=== PATIENT | female | born 1955 | race Caucasian/White ===

== ENCOUNTER 2020-07-15 09:40 | Outpatient (REF) | payer MEDICARE, SELFPAY ==
[2020-07-15 12:05] LABS: Alanine Aminotransferase 26 U/L (0-31); Alkaline Phosphatase 111 U/L (39-117); Anion Gap 10 (12-20); Aspartate Amino Transferase 34 U/L (5-31); Bilirubin Total 0.5 mg/dL (0.0-1.0); Blood Urea Nitrogen 12 mg/dL (9-16); Calcium 8.9 mg/dL (8.4-10.2); Carbon Dioxide 25 mmol/L (22-29); Chloride 107 mmol/L (96-108); Cholesterol 201 mg/dL; Estimated Glomerular Filt Rate > 60; Glucose Fasting 88 mg/dL (60-99); HDL Cholesterol 90 mg/dL; LDL Cholesterol Calculated 102 mg/dl; Potassium 4.2 mmol/L (3.3-5.1); Sodium 138 mmol/L (135-145); Total Protein 6.4 g/dL (6.5-8.0); Triglycerides 48 mg/dL
[2020-07-15 12:25] LABS: TSH reflex Free T4 2.26 uIU/mL (0.32-4.0)
== END 2020-07-15 09:41 | disposition home or self-care (01) ==
LOC: HO.HMGCLDS 09:40
PROVIDERS: PCP Nurse Practitioner Family; Visit Provider Nurse Practitioner Family
DX: E78.5 Hyperlipidemia, unspecified (principal); E03.9 Hypothyroidism, unspecified
CPT/HCPCS: 36415; 80053; 80061; 84443

== ENCOUNTER 2020-09-08 10:07 | Outpatient (REF) | payer MEDICARE, SELFPAY ==
[2020-09-08 11:36] LABS: Alanine Aminotransferase 22 U/L (0-31); Albumin Level 3.8 g/dL (3.5-5.0); Alkaline Phosphatase 113 U/L (39-117); Anion Gap 12 (12-20); Aspartate Amino Transferase 30 U/L (5-31); Bilirubin Total 0.6 mg/dL (0.0-1.0); Blood Urea Nitrogen 13 mg/dL (9-16); Calcium 8.7 mg/dL (8.4-10.2); Carbon Dioxide 23 mmol/L (22-29); Chloride 105 mmol/L (96-108); Cholesterol 194 mg/dL; Estimated Glomerular Filt Rate > 60; Glucose Fasting 89 mg/dL (60-99); HDL Cholesterol 94 mg/dL; LDL Cholesterol Calculated 92 mg/dl; Sodium 136 mmol/L (135-145); Total Protein 6.3 g/dL (6.5-8.0); Triglycerides 44 mg/dL
[2020-09-08 11:44] LABS: TSH reflex Free T4 1.23 uIU/mL (0.32-4.0)
== END 2020-09-08 10:08 | disposition home or self-care (01) ==
LOC: HO.LAB 10:07
PROVIDERS: PCP Nurse Practitioner Family; Visit Provider Nurse Practitioner Family
DX: E03.9 Hypothyroidism, unspecified (principal)
CPT/HCPCS: 36415; 80053; 80061; 84443

== ENCOUNTER 2020-09-14 08:41 | Outpatient (REF) | payer MEDICARE, SELFPAY ==
--- NOTE | ~2020-09-14 | MM_ITS ---
EXAMINATION: BONE DENSITOMETRY CLINICAL INDICATION: Encounter for screening for osteoporosis. COMPARISON: Baseline BD dated 11/18/2013. TECHNIQUE: Using a Wildcard DXA System (software version: 13.1) manufactured by [employer], dual-energy x-ray absorptiometry was performed of the lumbar spine and left hip. The images are of good technical quality. Summary results are attached. FINDINGS: AP SPINE L1-L4: Current: BMD 1.044 g/cm2, Z-score 0.8, T-score -1.1, osteopenia, 14.6% decrease from baseline (<5% change is not significant). Baseline: BMD 1.223 g/cm2. LEFT FEMUR, NECK: Current: BMD 0.683 g/cm2, Z-score -0.8, T-score -2.6, osteoporosis. Baseline: BMD 0.851 g/cm2. LEFT FEMUR, TOTAL: Current: BMD 0.712 g/cm2, Z-score -0.8, T-score -2.4, osteopenia, 26.1% decrease from baseline (<5% change is not significant). Baseline: BMD 0.964 g/cm2. IDENTIFIED RISK FACTORS: Recurrent falls, kidney disease, anticonvulsants, glucocorticoids (chronic), menopause, hysterectomy, bilateral oophorectomy. HISTORY OF FRACTURE: None listed. MEDICATIONS: Vitamin D. MM/XR DEXA axial skeleton IMPRESSION: 1. DIAGNOSIS: Osteoporosis based on the lowest T-score value of -2.6 in the femoral neck applying World Health Organization criteria. 2. 10-YEAR FRACTURE RISK PREDICTION, FRAX: Major osteoporotic fracture (clinical spine, forearm, hip or shoulder) 21.6%. Hip fracture 5.9%. 3. Treatment Recommendations: NOF guidelines recommend consideration for treatment in postmenopausal women and men age 50 and older presenting with the following: -A hip or vertebral (clinical or morphometric) fracture. -T-score less than or equal to -2.5 at the femoral neck or spine after appropriate evaluation to exclude secondary causes. -Low bone mass at the hip or spine and a 10-year fracture probability by FRAX of greater than or equal to 3% for hip fracture or greater than or equal to 20% for major osteoporotic fracture based on the [place] adapted WHO algorithm. 4. Other Recommendations: All treatment decisions require clinical judgment and consideration of individual patient factors, including patient preferences, comorbidities, previous drug use, risk factors not captured in the FRAX model (e.g. frailty, falls, vitamin D deficiency, increased bone turnover, interval significant decline in bone density) and possible under or overestimation of fracture risk by FRAX. Additional medical evaluation for secondary cause of low bone mineral density may be appropriate. FUTURE SCAN RECOMMENDATION: People with diagnosed cases of osteoporosis or at high risk for fracture should have regular bone mineral density tests. For patients eligible for Medicare, routine testing is allowed once every 2 years. The testing frequency can be increased to one year for patients who have rapidly progressing disease, those who are receiving or discontinuing medical therapy to restore bone mass, or have additional risk factors.
--- NOTE | ~2020-09-14 | US_ITS ---
EXAMINATION: US THYROID CLINICAL INFORMATION: Nontoxic single thyroid nodule COMPARISON: Ultrasound soft tissue 10/27/2015. TECHNIQUE: Linear transducer grayscale and color Doppler examination with attention to the region of the thyroid. FINDINGS: SIZE: Measurements of the thyroid lobes and nodules are given in sagittal, anteroposterior and transverse dimensions respectively. Right Thyroid Lobe: 3.8 x 1.7 x 1.3 cm, volume 4.4 mL. Parenchyma: The gland echotexture is heterogeneous. Thyroid vascularity is normal. Left Thyroid Lobe: Removed. Isthmus: 0.2 cm in maximum AP dimension. Estimated total number of nodules greater than or equal to 1 cm: 0. Sailmaker nodules are described as follows: 1. Location: Right upper. Size: 0.3 x 0.3 x 0.3 cm, volume 0.01 mL. Nodule characteristics: Composition: Solid (2). Echogenicity: Hypoechoic (2). Shape: Not taller than wide (0). Margins: Smooth (0). Echogenic Foci: None (0). ACR TI-RADS total points: 4 ACR TI-RADS category: 4 2. Location: Right midpole. Size: 0.6 x 0.4 x 0.6 cm, volume 0.08 mL. Nodule characteristics: Composition: Solid (2). Echogenicity: Hypoechoic (2). Shape: Not taller than wide (0). Margins: Smooth (0). Echogenic Foci: None (0). ACR TI-RADS total points: 4 ACR TI-RADS category: 4 3. Location: Right lower pole. Size: 0.8 x 0.6 x 0.7 cm, volume 0.18 mL. Nodule characteristics: Composition: Solid (2). Echogenicity: Hypoechoic (2). Shape: Not taller than wide (0). Margins: Smooth (0). Echogenic Foci: None (0). ACR TI-RADS total points: 4 ACR TI-RADS category: 4 NODES: No lymphadenopathy is seen in the tissue surrounding the thyroid gland. US/US thyroid IMPRESSION: No nodule or residual thyroid tissue seen in the left neck. 3 small right thyroid nodules. ACR TI-RADS RECOMMENDATION REFERENCE: Ultrasound-guided fine-needle aspiration, followup ultrasound, no further follow up. * TR1 (0 point) and TR 2 (2 points): No FNA or follow up * TR3 (3 points): FNA if more than or equal to 2.5 cm in maximum dimension, followup ultrasound in 1, 3 and 5 years if 1.5 to 2.4 cm in maximum dimension. * TR4 (4-6 points): FNA if more than or equal to 1.5 cm in maximum dimension, followup ultrasound in 1, 2, 3 and 5 years if 1 to 1.4 cm in maximum dimension. * TR5 (more than or equal to 7 points): FNA if more than or equal to 1 cm in maximum dimension, followup ultrasound every year for 5 years if 0.5 to 0.9 cm in maximum dimension. * TR3, TR4 or TR5 nodules that are below the size threshold for follow up receive no follow up.
== END 2020-09-14 08:42 | disposition home or self-care (01) ==
LOC: HO.MAMMO 08:41
PROVIDERS: Visit Provider Nurse Practitioner Family
DX: Z13.820 Encounter for screening for osteoporosis (principal); E04.1 Nontoxic single thyroid nodule; N28.9 Disorder of kidney and ureter, unspecified; Z78.0 Asymptomatic menopausal state; Z91.81 History of falling; Z79.899 Other long term (current) drug therapy; Z79.52 Long term (current) use of systemic steroids; Z90.722 Acquired absence of ovaries, bilateral; Z90.710 Acquired absence of both cervix and uterus
CPT/HCPCS: 76536; 77080

== ENCOUNTER 2020-09-20 11:14 | Outpatient (REF) | payer MEDICARE, SELFPAY ==
--- NOTE | ~2020-09-20 | MM_ITS ---
EXAMINATION: MM SCREENING DIGITAL BREAST TOMOSYNTHESIS, BILATERAL CLINICAL INFORMATION: Screening. Asymptomatic. The lifetime risk of breast cancer based on the Tyrer-Cuzick Model is 4%. COMPARISON: Mammography: 05/22/2017, 04/04/2016 TECHNIQUE: Digital breast tomosynthesis is performed in both the craniocaudal and mediolateral oblique views along with computer-aided detection (CAD). Synthesized 2D images are generated from the tomosynthesis. FINDINGS: There are scattered areas of fibroglandular density (ACR BI-RADS breast composition Category b). There are no significant masses, abnormal calcifications, or other abnormalities. Parenchymal pattern is similar to prior exams. There are benign-appearing bilateral scattered calcifications again present. The axilla and skin contours are unremarkable. MM/MM tomosynthesis screening BI IMPRESSION: No mammographic evidence of malignancy. ASSESSMENT: BI-RADS 2: Benign RECOMMENDATION: Routine annual mammography screening. This patient's information was entered into a reminder system with a target due date for their next mammogram.
== END 2020-09-20 11:15 | disposition home or self-care (01) ==
LOC: HO.MAMMO 11:14
PROVIDERS: PCP Nurse Practitioner Family; Visit Provider Nurse Practitioner Family
DX: Z12.31 Encounter for screening mammogram for malignant neoplasm of breast (principal)
CPT/HCPCS: 77063; 77067

== ENCOUNTER 2020-12-22 11:31 | Outpatient (REF) | payer OTHER, SELFPAY ==
[2020-12-22 14:22] LABS: Alanine Aminotransferase 20 U/L (0-31); Albumin Level 3.9 g/dL (3.5-5.0); Alkaline Phosphatase 80 U/L (39-117); Anion Gap 12 (12-20); Aspartate Amino Transferase 34 U/L (5-31); Bilirubin Total 0.5 mg/dL (0.0-1.0); Blood Urea Nitrogen 15 mg/dL (9-16); Calcium 8.9 mg/dL (8.4-10.2); Carbon Dioxide 22 mmol/L (22-29); Chloride 108 mmol/L (96-108); Estimated Glomerular Filt Rate > 60; Glucose Fasting 87 mg/dL (60-99); Potassium 4.4 mmol/L (3.3-5.1); Sodium 138 mmol/L (135-145); Total Protein 6.6 g/dL (6.5-8.0)
[2020-12-22 14:44] LABS: TSH reflex Free T4 1.13 uIU/mL (0.32-4.0)
== END 2020-12-22 11:32 | disposition home or self-care (01) ==
LOC: HO.HMGCLDS 11:31
PROVIDERS: PCP Nurse Practitioner Family; Visit Provider Nurse Practitioner Family
DX: E03.9 Hypothyroidism, unspecified (principal)
CPT/HCPCS: 36415; 80053; 84443

== ENCOUNTER 2021-02-07 09:50 | Outpatient (REF) | payer OTHER, SELFPAY ==
--- NOTE | 2021-02-09 08:28 | MHC.AU.ANO ---
Adult Audiological Evaluation Date of Visit: 02/07/21 Reason for Appointment: Patient's family has expressed significant concern for her hearing. She reports that she often says what? and needs repetition. She often mishears things, and her family will frequently say that's not what I said. 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 History: No Medical History: Medical History: Arthritis, Thyroid Cancer, Headaches/Migraines, Heart Murmur, Head Injury, Conversion Disorder (presents as seizures), Ataxic Gait (uses walker), Measles/Mumps as a child Patient was in a alf last year Otoscopy: Right Ear: Unremarkable Left Ear: Unremarkable Tympanometry: Tympanometry performed due to: To assess integrity of the middle ear system Right Ear: Hypercompliant Middle Ear System (Type Ad) Left Ear: Hypercompliant Middle Ear System (Type Ad) Hearing Evaluation: Transducer(s) Used: Insert Earphones Method: Conventional Audiometry Stimuli Used: Pure Tones Right Ear: Description of Hearing: Mild to severe sensorineural hearing loss Left Ear: Description of Hearing: Mild to severe sensorineural hearing loss Speech Recognition Threshold (SRT): Method Used: Recorded Lists Stimuli Used: Spondee Words Right Ear: 45 dBHL Left Ear: 45 dBHL Word Discrimination: Method: Recorded Lists Word Lists Used: W-22 Right Ear: 92% at 80 dBHL Left Ear: 88% at 80 dBHL Most Comfortable Level (MCL): Right Ear: 80 dBHL Left Ear: 80 dBHL Recommendations: Audiological re-evaluation in one year. Trial with amplification is recommended. Medical clearance from a physician is required before fitting. See Hearing Aid Evaluation report for more information. Diagnosis: Primary Diagnosis: H90.3 Bilateral Sensorineural Hearing Loss Signature: Provider: Wilfredo Ramsey, CCC-A
--- NOTE | 2021-02-09 08:29 | MHC.AU.HAS ---
Hearing Aid Evaluation Date of Visit: 02/07/21 Historical Information: Description of Hearing: Mild to severe sensorineural hearing loss bilaterally Summary: Patient was seen for audiological evaluation (see separate report for details). Hearing aid options were discussed. She is experiencing significant communication difficulty at home with family. Hearing Aid Prescription: Based on the individual?s shared listening needs, communication environments, dexterity, desire for connectivity, and personal preferences, the following prescription for amplification has been made: Right ear: Cook Frozen Dessert: gogamingo Model: Hexoskin ([employer]) P70-R Battery Size: Rechargeable Color: P5 Servomechanism Designer: 1M Action Taken/Action Needed: Prior authorization to be requested Medical Clearance to be requested from PCP/ENT Hearing Instrument Fitting to be scheduled when materials arrive Primary Diagnosis: H90.3 Bilateral Sensorineural Hearing Loss Signature: Provider: Wilfredo Ramsey, CCC-A
--- NOTE | 2021-02-09 08:39 | MHC.AU.MED ---
Medical Clearance for Hearing Instrumentation Date: 02/09/21 Patient Name: Sarahy Neves Date of : 1955 Primary Care Provider: Referring Provider: Case Duff [facility] We have seen your patient on 02/07/21 and have determined that they are a candidate for amplification (See accompanying report). Specifically, they would benefit from: Hearing aid use in both ears There is a statute that addresses Medical Evaluation Requirements prior to fitting a patient with a hearing aid. According to [place] statute 265 CMR:6.03(1), (a) General. Except as provided in 265 CMR 6.03(1)(b), a shearing machine tender shall not sell a hearing aid unless the prospective user has presented to the shearing machine tender a written statement signed by a licensed physician that states that the patient's hearing loss has been medically evaluated and the patient may be considered a candidate for a hearing aid. The medical evaluation must have taken place within the preceding six months. Please note: Due to the [place] Statute referenced above, we cannot accept a signature other than that of a licensed physician. TECHNICAL SUPPORT CONSULTANT and PA signatures cannot be accepted. I am in agreement with the above recommendation. There is no medical contraindication for hearing instrumentation. Physician Signature Date Physician Name (Printed)
--- NOTE | 2021-02-23 07:54 | MHC.AU.HAS ---
Hearing Aid Evaluation Date of Visit: 02/07/21 Historical Information: Description of Hearing: Mild to severe sensorineural hearing loss bilaterally Summary: Patient was seen for audiological evaluation (see separate report for details). Hearing aid options were discussed. She is experiencing significant communication difficulty at home with family. Hearing Aid Prescription: Based on the individual?s shared listening needs, communication environments, dexterity, desire for connectivity, and personal preferences, the following prescription for amplification has been made: Right ear: Medical Transcriptionist: Phonak Model: [employer] P70-R Battery Size: Rechargeable Color: P5 Bus Washer: 1M Left ear: Medical Transcriptionist: Phonak Model: Audeo P70-R Battery Size: Rechargeable Color: P5 Bus Washer: 1M Action Taken/Action Needed: Prior authorization to be requested Medical Clearance to be requested from PCP/ENT Hearing Instrument Fitting to be scheduled when materials arrive Primary Diagnosis: H90.3 Bilateral Sensorineural Hearing Loss Signature: Provider: Wilfredo Ramsey, IBIS-A
== END 2021-02-07 09:51 | disposition home or self-care (01) ==
LOC: HO.SH 09:50
PROVIDERS: Visit Provider Nurse Practitioner Family
DX: Z46.1 Encounter for fitting and adjustment of hearing aid (principal); H91.90 Unspecified hearing loss, unspecified ear
CPT/HCPCS: 92557; 92567; 92591

== ENCOUNTER 2021-02-17 10:11 | Outpatient (REF) | payer OTHER, SELFPAY ==
[2021-02-17 11:31] LABS: Appearance Urine CLEAR; Color Urine YELLOW; Glucose Urine UA NEG (NEG); Leukocyte Esterase Urine NEG (NEG); Nitrite Urine NEG (NEG); Urine Blood NEG (NEG); Urine Ketones NEG (NEG); Urine Protein NEG (NEG-TRACE)
== END 2021-02-17 10:12 | disposition home or self-care (01) ==
LOC: HO.HMGCLDS 10:11
PROVIDERS: PCP Nurse Practitioner Family; Visit Provider Nurse Practitioner Family
DX: R35.0 Frequency of micturition (principal)
CPT/HCPCS: 81003

== ENCOUNTER 2021-03-09 10:49 | Outpatient (REF) | payer OTHER, SELFPAY ==
--- NOTE | 2021-03-18 14:15 | MHC.AU.HFA ---
Hearing Instrument Fitting- Adult- Binaural Date of Visit: 03/09/21 Hearing Instruments Dispensed: Right Ear: Navy Senior Officer: Phonak Model: [employer]udeo P70-R Serial Number: [id number] Repair Warranty: 05/28/2024 Loss and Damage Warranty: 05/28/2024 Battery Size: Rechargeable Color: P5 Head Concierge: 1M Type of Wax Guard: CeruShield Left Ear: Navy Senior Officer: Phonak Model: Audeo P70-R Serial Number: [id number] Repair Warranty: 05/28/2024 Loss and Damage Warranty: 05/28/2024 Service Plan: Battery Size: Rechargeable Color: P5 Head Concierge: 1M Type of Wax Guard: CeruShield Summary of Fitting: Feedback respiratory manager run. Verifit performed and levels adjusted to better reach targets. Patient felt 100% target was too loud- lowered to 90% gain. Patient was pleased with the sound of the instruments. Hearing aid care and maintenance were discussed and practiced. Hearing aids were paired to the patient's phone. Recommendations: A hearing instrument follow-up was scheduled. Please call our clinic with any questions or concerns. Diagnosis Code(s): Primary Diagnosis: H90.3 Bilateral Sensorineural Hearing Loss Signature: Provider: Wilfredo Ramsey, IBIS-A
== END 2021-03-09 10:50 | disposition home or self-care (01) ==
LOC: HO.HAP 10:49
PROVIDERS: Visit Provider Nurse Practitioner Family
DX: Z46.1 Encounter for fitting and adjustment of hearing aid (principal); H90.3 Sensorineural hearing loss, bilateral
CPT/HCPCS: V5011; V5020; V5160; V5261

== ENCOUNTER 2021-03-23 11:09 | Outpatient (REF) | payer OTHER, SELFPAY ==
[2021-03-23 13:48] LABS: MANUAL DIFF FLAG NO
[2021-03-23 13:53] LABS: Basophils Absolute Auto 0.1 X10*3/uL (0.0-0.2); Basophils Percent Auto 0.9 % (0-2); Eosinophils Absolute Auto 0.2 X10*3/uL (0.0-0.4); Eosinophils Percent Auto 3.2 % (0-4); Hemoglobin 13.7 g/dl (12.0-16.0); Imm Gran Abs Auto 0.02 X10*3/uL (0.00-0.03); Imm Gran Pct Auto 0.4 % (0.0-0.4); Lymphocytes Absolute Auto 1.6 X10*3/uL (1.2-4.9); Lymphocytes Percent Auto 29.9 % (20-40); Mean Corpuscular HGB Conc 31.9 g/dl (31.0-35.0); Mean Corpuscular Hemoglobin 29.8 pg (27.0-33.0); Mean Corpuscular Volume 93.5 fL (80-98); Mean Platelet Volume 10.8 fL (9.4-12.3); Monocytes Absolute Auto 0.4 X10*3/uL (0.1-1.2); Monocytes Percent Auto 7.2 % (2-11); Neutrophils Absolute Auto 3.1 X10*3/uL (2.0-8.3); Neutrophils Percent Auto 58.4 % (45-73); Platelet Count 261 X10*3/uL (160-400); White Blood Count 5.3 X10*3/uL (4.8-10.8)
[2021-03-23 14:04] LABS: Alanine Aminotransferase 17 U/L (0-31); Albumin Level 4.2 g/dL (3.5-5.0); Alkaline Phosphatase 81 U/L (39-117); Anion Gap 11 (12-20); Aspartate Amino Transferase 30 U/L (5-31); Bilirubin Total 0.4 mg/dL (0.0-1.0); Blood Urea Nitrogen 14 mg/dL (9-16); Calcium 9.4 mg/dL (8.4-10.2); Carbon Dioxide 24 mmol/L (22-29); Chloride 107 mmol/L (96-108); Cholesterol 229 mg/dL; Estimated Glomerular Filt Rate > 60; Glucose Random 93 mg/dL (60-115); HDL Cholesterol 101 mg/dL; LDL Cholesterol Calculated 118 mg/dl; Potassium 3.8 mmol/L (3.3-5.1); Sodium 138 mmol/L (135-145); Total Protein 6.9 g/dL (6.5-8.0); Triglycerides 50 mg/dL
[2021-03-23 14:56] LABS: Folate 7.5 ng/mL (> or = 4.0); Vitamin B12 515 pg/mL (200-900)
== END 2021-03-23 11:10 | disposition home or self-care (01) ==
LOC: HO.HMGCLDS 11:09
PROVIDERS: PCP Nurse Practitioner Family; Visit Provider Nurse Practitioner Family
DX: E53.8 Deficiency of other specified B group vitamins (principal); E78.5 Hyperlipidemia, unspecified
CPT/HCPCS: 36415; 80053; 80061; 82607; 82746; 85025

== ENCOUNTER 2021-03-24 10:15 | Outpatient (REF) | payer OTHER, SELFPAY ==
--- NOTE | 2021-03-24 14:34 | MHC.AU.HFU ---
Hearing Instrument Follow-Up- Binaural Date of Visit: 03/24/21 Right Ear: Entry Level Recruiter: Phonak Model: Audeo P70-R Serial Number: [id number] Repair Warranty: 05/28/2024 Loss and Damage Warranty: 05/28/2024 Battery Size: Rechargeable Color: P5 Splunk Consultant: 1M Type of Wax Guard: CeruShield Left Ear: Entry Level Recruiter: Phonak Model: Audeo P70-R Serial Number: [id number] Repair Warranty: 05/28/2024 Loss and Damage Warranty: 05/28/2024 Battery Size: Rechargeable Color: P5 Splunk Consultant: 1M Type of Wax Guard: CeruShield Follow-Up Summary: Patient reports that the receivers have not been staying in her ears. She has to frequently push them in to hear better. They have also been causing itchiness. Patient has a narrow, sharp bend to her canals. Impressions were taken bilaterally for custom slim tip or cShells (depending on what Phonak says they can do given the shape of the canals). Recommendations: Recommendations: Patient will be contacted when materials have arrived. Diagnosis Code(s): Primary Diagnosis: H90.3 Bilateral Sensorineural Hearing Loss Signature: Provider: Wilfredo Ramsey, IBIS-A
== END 2021-03-24 10:16 | disposition home or self-care (01) ==
LOC: HO.HAP 10:15
PROVIDERS: Visit Provider Nurse Practitioner Family
DX: Z46.1 Encounter for fitting and adjustment of hearing aid (principal); H90.3 Sensorineural hearing loss, bilateral
CPT/HCPCS: V5275

== ENCOUNTER 2021-04-14 11:09 | Emergency (ER) | payer OTHER, SELFPAY ==
--- NOTE | ~2021-04-14 | CT_ITS ---
EXAMINATION: CT HEAD WITHOUT CONTRAST CLINICAL INFORMATION: Aphasia. COMPARISON: CT head dated from 04/29/2019. TECHNIQUE: Contiguous axial imaging was performed from the skull base to vertex without intravenous administration of contrast. This CT examination was performed using dose optimization techniques as appropriate, variously including the following: *Automated exposure control *Adjustment of mA and/or kV according to patient size (this includes techniques or standardized protocols for targeted exams where dose is matched to indication/reason for exam; i.e. extremities or head) *Use of iterative reconstruction technique DLP: 512 mGy-cm FINDINGS: There is no evidence of acute intracranial hemorrhage or edematous territorial infarction. There is no abnormal attenuation within the brain parenchyma. Noel-white matter differentiation is preserved. The ventricles are normal in size and configuration. No evidence for obstructive hydrocephalus. No abnormal mass effect or midline shift. No extra-axial fluid collections. No acute soft tissue or osseous abnormalities. The mastoid air cells and paranasal sinuses are clear. CT/CT head for stroke IMPRESSION: No evidence of acute intracranial hemorrhage or edematous territorial infarction. This critical result was discussed with Dr. Wells at 04/14/2021 11:26 AM and it was ascertained that the content and urgency of the report was understood at the time of direct communication.
--- NOTE | 2021-04-14 11:13 | ECG_ITS ---
Test Reason : AMS Blood Pressure : / mmHG Vent. Rate : 063 BPM Atrial Rate : 063 BPM P-R Int : 166 ms QRS Dur : 086 ms QT Int : 402 ms P-R-T Axes : 068 057 057 degrees QTc Int : 411 ms Normal sinus rhythm Normal ECG No significant changes seen Referred By: Rosendo Kraus Electronically Signed By:YUSEF VEE MD
[2021-04-14 11:18] VITALS: BP 152/71; PULSE 65; RESP 18; TEMP 36.7; O2SAT 98; BMI 24.0
--- NOTE | 2021-04-14 11:22 | PC.NURSE ---
pt was blinking in the coffee shop- said she was going to lose her balance and was assisted to the floor by staff.
[2021-04-14 12:00] LABS: MANUAL DIFF FLAG NO
[2021-04-14 12:01] LABS: Basophils Absolute Auto 0.1 X10*3/uL (0.0-0.2); Basophils Percent Auto 1.3 % (0-2); Eosinophils Absolute Auto 0.2 X10*3/uL (0.0-0.4); Eosinophils Percent Auto 3.7 % (0-4); Hematocrit 40.8 % (37.0-47.0); Hemoglobin 13.2 g/dl (12.0-16.0); Imm Gran Abs Auto 0.01 X10*3/uL (0.00-0.03); Imm Gran Pct Auto 0.2 % (0.0-0.4); Lymphocytes Absolute Auto 1.5 X10*3/uL (1.2-4.9); Lymphocytes Percent Auto 33.1 % (20-40); Mean Corpuscular HGB Conc 32.4 g/dl (31.0-35.0); Mean Corpuscular Hemoglobin 30.3 pg (27.0-33.0); Mean Corpuscular Volume 93.8 fL (80.0-98.0); Mean Platelet Volume 9.5 fL (9.4-12.3); Monocytes Absolute Auto 0.4 X10*3/uL (0.1-1.2); Monocytes Percent Auto 8.9 % (2-11); Neutrophils Absolute Auto 2.44 x10*3/uL (2.0-8.3); Neutrophils Percent Auto 52.8 % (45-73); Platelet Count 280 X10*3/uL (160-400); Red Blood Count 4.35 X10*6/uL (4.20-5.50); White Blood Count 4.6 X10*3/uL (4.8-10.8)
[2021-04-14 12:08] LABS: Prothrombin Time 11.2 SEC (9.9-13.0)
[2021-04-14 12:11] LABS: Partial Thromboplastin Time 34.5 SEC (24.1-38.0)
[2021-04-14 12:17] LABS: Ethanol < 10 mg/dL
[2021-04-14 12:23] LABS: Troponin-I High Sensitivity < 3.5 ng/L (<3.5-17.0)
[2021-04-14 12:24] LABS: Stroke Lab Use COMPLETE
[2021-04-14 12:25] LABS: Alanine Aminotransferase 14 U/L (0-31); Albumin Level 3.7 g/dL (3.5-5.0); Alkaline Phosphatase 73 U/L (39-117); Anion Gap 10 (12-20); Aspartate Amino Transferase 26 U/L (5-31); Bilirubin Direct < 0.2 mg/dL (0.0-0.5); Bilirubin Total 0.2 mg/dL (0.0-1.0); Blood Urea Nitrogen 16 mg/dL (9-16); Calcium 9.1 mg/dL (8.4-10.2); Carbon Dioxide 26 mmol/L (22-29); Chloride 110 mmol/L (96-108); Creatinine Clr Calc Pharmacy 46.4; Estimated Glomerular Filt Rate > 60; Glucose Random 99 mg/dL (60-115); Potassium 4.3 mmol/L (3.3-5.1); Sodium 142 mmol/L (135-145); Total Protein 6.2 g/dL (6.5-8.0)
[2021-04-14 12:36] LABS: Glucose, Whole Blood 93 mg/dL (60-115)
[2021-04-14 12:40] LABS: Prothrombin Time Whole Bld POC 11.8 sec (11.1-13.5)
--- NOTE | 2021-04-14 13:08 | ED.AMS ---
HPI - Altered Mental Status General Chief Complaint: Altered Mental Status Stated Complaint: Stroke Alert Time Seen by Provider: 04/14/21 11:12 Source: patient and other (Rapid response staff members) Mode of arrival: wheelchair Limitations: no limitations History of Present Illness HPI narrative: 66-year-old female who came to the hospital today for a audiology appointment to adjust her hearing aids when she became altered. The patient remembers being in the coffee shop looking at something but then does not remember what happened after that. According to the rapid response staff members, the patient was staring into space and was not answering questions. She then told the [employer] staff members that she was going to fall over and she was lowered to the floor. She was then brought over to the emergency department on a stretcher. I evaluated her as soon as she arrived and she appeared to be confused, she was not able to tell me the month, the year, her date of or her age. She did not appear to be in any distress. Except for her confusion her neurologic exam was nonfocal. She was brought directly to the CT for CT scan of the head to rule out stroke/bleed. Patient's point of care glucose was 93. Related Data Home Medications Medication Instructions Recorded Confirmed aspirin 81 mg tablet,delayed 81 mg PO DAILY 07/05/20 03/23/21 release (Adult Low Dose Aspirin) magnesium oxide 400 mg (241.3 mg 400 mg PO BEDTIME 12/22/20 03/23/21 magnesium) tablet riboflavin (vitamin B2) 100 mg 100 mg PO DAILY 12/22/20 03/23/21 tablet Previous Rx's Medication Instructions Recorded fluticasone 250 mcg-salmeterol 50 1 ea PO BID #60 ea 10/20/20 mcg/dose blistr powdr for inhalation (Wixela Inhub) alendronate 70 mg tablet 70 mg PO QWEEK 30 Days #5 tab 12/26/20 atorvastatin 40 mg tablet 40 mg PO DAILY 90 Days #90 tab 12/26/20 clonazepam 0.5 mg tablet 0.5 mg PO BID PRN 90 Days #180 tab 12/26/20 fludrocortisone 0.1 mg tablet 0.1 mg PO DAILY 30 Days #30 tab 12/26/20 montelukast 10 mg tablet 10 mg PO DAILY 90 Days #90 tab 12/26/20 polyethylene glycol 3350 17 17 g PO DAILY PRN 90 Days #510 g 12/26/20 gram/dose oral powder (Miralax) sumatriptan succinate 100 mg tablet See Rx Instructions PO .COMPLEX 30 12/26/20 Days #10 tab albuterol sulfate 2.5 mg (3 mL) INHALATION QID PRN 12/27/20 90 Days #180 ml cholecalciferol (vitamin D3) 50 50 mcg PO DAILY 90 Days #90 cap 12/27/20 mcg (2,000 unit) capsule fluoxetine 10 mg tablet 10 mg PO DAILY #90 tab 03/23/21 fluticasone propionate 50 1 spray INTRANASAL DAILY 90 Days 03/23/21 mcg/actuation nasal #15.8 ml spray,suspension levothyroxine 25 mcg tablet 25 mcg PO DAILY #90 tab 03/23/21 meclizine 25 mg tablet 25 mg PO DAILY PRN 90 Days #90 tab 03/23/21 topiramate 100 mg tablet 50 mg PO BID 30 Days #30 tab 03/23/21 albuterol sulfate 90 mcg/actuation 2 puff INHALATION Q6H PRN #6.7 g 04/13/21 aerosol inhaler (ProAir HFA) Allergies Allergy/AdvReac Type Severity Reaction Status Date / Time Penicillins [PENICILLINS] Allergy Intermediate HIVES Verified 03/23/21 12:30 carbamazepine [From Tegretol] Allergy Mild HIVES Verified 03/23/21 12:30 diflunisal [From Dolobid] Allergy Mild HIVES Verified 03/23/21 12:30 erythromycin base Allergy Mild HIVES Verified 03/23/21 12:30 [From Edwin-Tab] phenytoin [From Dilantin] Allergy Mild RASH,HIVES Verified 03/23/21 12:30 piroxicam [From Feldene] Allergy Mild HIVES Verified 03/23/21 12:30 sulfamethoxazole Allergy Mild HIVES Verified 03/23/21 12:30 [From Bactrim] trimethoprim [From Bactrim] Allergy Mild HIVES Verified 03/23/21 12:30 valproic acid [From Depakene] Allergy Mild HIVES Verified 03/23/21 12:30 Depakene Allergy Unknown Rash Verified 03/23/21 12:30 hydrochlorothiazide Allergy Unknown rash Verified 03/23/21 12:30 [HYDROCHLOROTHIAZIDE] lisinopril [LISINOPRIL] Allergy Unknown rash Verified 03/23/21 12:30 penicillin V Allergy Unknown Rash Verified 03/23/21 12:30 Sulfa (Sulfonamide Allergy Unknown Rash Verified 03/23/21 12:30 Antibiotics) codeine [Codeine] AdvReac Intermediate NAUSEA & Verified 03/23/21 12:30 VOMITING rash ENVIRONMENTAL Allergy Intermediate ASTHMA,LOSES Uncoded 03/23/21 12:30 VOICE TAPE,PLASTIC Allergy Intermediate RASH Uncoded 03/23/21 12:30 surgical tape Allergy Unknown unknown Uncoded 03/23/21 12:30 Review of Systems Review of Systems: Yes all other systems are reviewed and are negative FOR[facility]LY [facility] Past Medical History Medical History Asthma Ataxic gait CKD (chronic kidney disease) Conversion disorder Conversion disorder with attacks or seizures, acute episode, with psychological stressor Depression HTN (hypertension) Hyperlipemia Hypothyroid Hypothyroid Muscle weakness Osteoporosis Seizures Surgical History History of ankle surgery History of arthroscopy of left knee History of arthroscopy of right knee History of hysterectomy History of lobectomy of thyroid History of right knee surgery Family History Family History Father CVD (cardiovascular disease) Stomach ulcer Cardiac arrest H/O heart bypass surgery Mother History of heart attack CHF (congestive heart failure) Lung cancer Diabetes mellitus High cholesterol HTN (hypertension) Hypothyroidism Sister Lung cancer Brother Colitis Sister No problems noted. Social History Social History Alcohol intake: never Physical Exam Vital Signs: Vital Signs: Last Vital Signs Temp 98.1 F 04/14/21 11:18 Pulse 65 04/14/21 11:18 Resp 18 04/14/21 11:18 BP 152/71 H 04/14/21 11:18 Pulse Ox 98 04/14/21 11:18 Body Mass Index 24.0 Const: Other: Awake, alert, appears to be confused, was unable to give us her date of , not oriented to date or age, speech is comprehensible Orientation/consciousness: No oriented to person, No oriented to place and No oriented to time HENMT: Head: Yes normal to inspection, Yes normocephalic and Yes atraumatic Ears: external ears normal General nose exam: Normal external nose present Face and sinus: Yes normal facial exam Mouth: Normal oral and palatal mucosa present Throat: Yes posterior oropharynx normal Eyes: General: appearance normal, both eyes and all related structures Pupils: Equal, round and reactive pupils present Neck: Neck: Yes normal visual inspection, Yes no lymphadenopathy, Yes trachea midline and Yes supple Chest: Chest palpation & inspection: normal inspection of the chest and normal palpation of entire chest wall Resp: Effort & Inspection: normal respiratory effort and able to speak in complete sentences Auscultation: clear to auscultation bilaterally Cardio: Rate: regular rate Rhythm: regular rhythm Heart sounds: S1 normal heart sound present, S2 normal heart sound present and no murmurs GI: Inspection: Yes normal to inspection Palpation (GI): Soft to palpation, nontender and no guarding Auscultation: normal bowel sounds : General: Yes no CVA tenderness Back/Spine/Pelvis: Back: no CVA tenderness Skin: General skin exam: no rashes or lesions noted Neuro: General: No oriented to person, No oriented to place and No oriented to time Cranial nerves: Yes CN's II-XII intact bilaterally and Yes Equal, round and reactive pupils present Cognition (Neuro): normal cognition Motor exam (neuro): 5/5 motor strength present throughout Extrem: General: Yes normal to inspection Psych: Appearance: grossly normal Speech and movement: Normal speech and movement present Affect: normal affect Attitude: cooperative Thought process: Normal thought process present Thought content: Normal thought content present NIH Stroke Scale Internal: Initial- Upon Arrival Level of Consciousness: Alert Level of Consciousness Questions: Answers neither question correctly Level of Consciousness Commands: Performs both tasks correctly Best Gaze: Normal Visual: No visual loss Facial Palsy: Normal Motor Arm (Right): No drift Motor Arm (Left): No drift Motor Leg (Right): No drift Motor Leg (Left): No drift Limb Ataxia: Absent Sensory: Normal Best Language: Mild to moderate aphasia Dysarthia: Normal Extinction and Inattention: No abnormality Score: 3 Course Course Course Narrative: 66-year-old female who presents emergency department for evaluation of altered mental status while she was here in the hospital coffee shop waiting for an audiology appointment. On initial presentation to the emergency department she did appear to be slightly confused a possibly aphasic since she was having difficulty answering questions and not or time. She was also unable to give us her age and her date of . Vital signs revealed an elevated blood pressure of 152/71 otherwise unremarkable. Exam was unremarkable except for her confusion. The patient's neurologic exam was otherwise nonfocal. Her NIH stroke scale was 3. The patient was brought to CT scan and [address] [employer] interpreted her CT scan of her head without contrast is unremarkable. 1320 : Patient's laboratory evaluation revealed a slightly low WBC of 4600 and elevated chloride of 110 otherwise was unremarkable. Patient's troponin was not elevated. Alcohol level was below detectable limits. Twelve EKG was normal. At this time I do not think that the patient's stroke clear for thrombolytics were not indicated. I believe that the patient's symptoms are more consistent with anxiety. The patient is at her baseline. The patient will be discharged home with printed and verbal instructions. MDM - Altered Mental Status Lab Data Result diagrams: 04/14/21 11:55 04/14/21 11:55 Labs: Lab Results 04/14/21 04/14/21 04/14/21 Range/Units 11:10 11:11 11:55 WBC 4.6 L (4.8-10.8) X10*3/uL RBC 4.35 (4.20-5.50) X10*6/uL Hgb 13.2 (12.0-16.0) g/dl Hct 40.8 (37.0-47.0) % MCV 93.8 (80.0-98.0) fL MCH 30.3 (27.0-33.0) pg MCHC 32.4 (31.0-35.0) g/dl RDW 14.0 (11.0-16.0) % Plt Count 280 (160-400) X10*3/uL MPV 9.5 (9.4-12.3) fL Immature Gran % (Auto) 0.2 (0.0-0.4) % Neut % (Auto) 52.8 (45-73) % Lymph % (Auto) 33.1 (20-40) % [place] % (Auto) 8.9 (2-11) % Eos % (Auto) 3.7 (0-4) % Baso % (Auto) 1.3 (0-2) % Lymph # (Auto) 1.5 (1.2-4.9) X10*3/uL [place] # (Auto) 0.4 (0.1-1.2) X10*3/uL Eos # (Auto) 0.2 (0.0-0.4) X10*3/uL Baso # (Auto) 0.1 (0.0-0.2) X10*3/uL Abs Immat Gran (auto) 0.01 (0.00-0.03) X10*3/uL Absolute Neuts (auto) 2.44 (2.0-8.3) x10*3/uL Absolute Nucleated RBC 0.000 (0.0-0.012) X10*3/uL Nucleated RBC % (auto) 0.0 (0.0-0.2) /100WBC PT (9.9-13.0) SEC Whole Blood PT 11.8 (11.1-13.5) sec INR (0.9-1.1) Whole Blood INR 1.0 (0.9-1.1) APTT (24.1-38.0) SEC Sodium (135-145) mmol/L Potassium (3.3-5.1) mmol/L Chloride (96-108) mmol/L Carbon Dioxide (22-29) mmol/L Anion Gap (12-20) BUN (9-16) mg/dL Creatinine (0.5-1.4) mg/dL Estim Creat Clear Calc Estimated GFR POC Glucose 93 (60-115) mg/dL Random Glucose (60-115) mg/dL Calcium (8.4-10.2) mg/dL Total Bilirubin (0.0-1.0) mg/dL Direct Bilirubin (0.0-0.5) mg/dL AST (5-31) U/L ALT (0-31) U/L Alkaline Phosphatase (39-117) U/L Total Creatine Kinase (26-140) U/L Troponin I High Sens (<3.5-17.0) ng/L Total Protein (6.5-8.0) g/dL Albumin (3.5-5.0) g/dL Ethyl Alcohol mg/dL 04/14/21 04/14/21 04/14/21 Range/Units 11:55 11:55 11:55 WBC (4.8-10.8) X10*3/uL RBC (4.20-5.50) X10*6/uL Hgb (12.0-16.0) g/dl Hct (37.0-47.0) % MCV (80.0-98.0) fL MCH (27.0-33.0) pg MCHC (31.0-35.0) g/dl RDW (11.0-16.0) % Plt Count (160-400) X10*3/uL MPV (9.4-12.3) fL Immature Gran % (Auto) (0.0-0.4) % Neut % (Auto) (45-73) % Lymph % (Auto) (20-40) % [place] % (Auto) (2-11) % Eos % (Auto) (0-4) % Baso % (Auto) (0-2) % Lymph # (Auto) (1.2-4.9) X10*3/uL [place] # (Auto) (0.1-1.2) X10*3/uL Eos # (Auto) (0.0-0.4) X10*3/uL Baso # (Auto) (0.0-0.2) X10*3/uL Abs Immat Gran (auto) (0.00-0.03) X10*3/uL Absolute Neuts (auto) (2.0-8.3) x10*3/uL Absolute Nucleated RBC (0.0-0.012) X10*3/uL Nucleated RBC % (auto) (0.0-0.2) /100WBC PT 11.2 (9.9-13.0) SEC Whole Blood PT (11.1-13.5) sec INR 1.0 (0.9-1.1) Whole Blood INR (0.9-1.1) APTT 34.5 (24.1-38.0) SEC Sodium 142 (135-145) mmol/L Potassium 4.3 (3.3-5.1) mmol/L Chloride 110 H (96-108) mmol/L Carbon Dioxide 26 (22-29) mmol/L Anion Gap 10 L (12-20) BUN 16 (9-16) mg/dL Creatinine 0.92 (0.5-1.4) mg/dL Estim Creat Clear Calc 46.4 Estimated GFR > 60 POC Glucose (60-115) mg/dL Random Glucose 99 (60-115) mg/dL Calcium 9.1 (8.4-10.2) mg/dL Total Bilirubin 0.2 (0.0-1.0) mg/dL Direct Bilirubin < 0.2 (0.0-0.5) mg/dL AST 26 (5-31) U/L ALT 14 (0-31) U/L Alkaline Phosphatase 73 (39-117) U/L Total Creatine Kinase 80 (26-140) U/L Troponin I High Sens < 3.5 (<3.5-17.0) ng/L Total Protein 6.2 L (6.5-8.0) g/dL Albumin 3.7 (3.5-5.0) g/dL Ethyl Alcohol mg/dL 04/14/21 Range/Units 11:55 WBC (4.8-10.8) X10*3/uL RBC (4.20-5.50) X10*6/uL Hgb (12.0-16.0) g/dl Hct (37.0-47.0) % MCV (80.0-98.0) fL MCH (27.0-33.0) pg MCHC (31.0-35.0) g/dl RDW (11.0-16.0) % Plt Count (160-400) X10*3/uL MPV (9.4-12.3) fL Immature Gran % (Auto) (0.0-0.4) % Neut % (Auto) (45-73) % Lymph % (Auto) (20-40) % [place] % (Auto) (2-11) % Eos % (Auto) (0-4) % Baso % (Auto) (0-2) % Lymph # (Auto) (1.2-4.9) X10*3/uL [place] # (Auto) (0.1-1.2) X10*3/uL Eos # (Auto) (0.0-0.4) X10*3/uL Baso # (Auto) (0.0-0.2) X10*3/uL Abs Immat Gran (auto) (0.00-0.03) X10*3/uL Absolute Neuts (auto) (2.0-8.3) x10*3/uL Absolute Nucleated RBC (0.0-0.012) X10*3/uL Nucleated RBC % (auto) (0.0-0.2) /100WBC PT (9.9-13.0) SEC Whole Blood PT (11.1-13.5) sec INR (0.9-1.1) Whole Blood INR (0.9-1.1) APTT (24.1-38.0) SEC Sodium (135-145) mmol/L Potassium (3.3-5.1) mmol/L Chloride (96-108) mmol/L Carbon Dioxide (22-29) mmol/L Anion Gap (12-20) BUN (9-16) mg/dL Creatinine (0.5-1.4) mg/dL Estim Creat Clear Calc Estimated GFR POC Glucose (60-115) mg/dL Random Glucose (60-115) mg/dL Calcium (8.4-10.2) mg/dL Total Bilirubin (0.0-1.0) mg/dL Direct Bilirubin (0.0-0.5) mg/dL AST (5-31) U/L ALT (0-31) U/L Alkaline Phosphatase (39-117) U/L Total Creatine Kinase (26-140) U/L Troponin I High Sens (<3.5-17.0) ng/L Total Protein (6.5-8.0) g/dL Albumin (3.5-5.0) g/dL Ethyl Alcohol < 10 mg/dL ECG Data ECG #1: Interpretation: 1129: Normal sinus rhythm with 63, normal [place], QRS and QTC intervals, no ST segment elevation, no ST segment depression, no PACs, no PVCs, this is a normal EKG. Discharge Plan Discharge Clinical Impression: Acute alteration in mental status, Anxiety Patient Disposition: Home, Self-Care Prescriptions: No Action fluticasone propion-salmeterol [Wixela Inhub] 250-50 mcg/dose blister with device 1 ea PO BID Qty: 60 RF: 4 alendronate 70 mg tablet 70 mg PO QWEEK 30 Days Qty: 5 RF: 3 atorvastatin 40 mg tablet 40 mg PO DAILY 90 Days Qty: 90 RF: 2 clonazepam 0.5 mg tablet 0.5 mg PO BID PRN (Reason: anxiety/agitation) 90 Days Qty: 180 RF: 0 montelukast 10 mg tablet 10 mg PO DAILY 90 Days Qty: 90 RF: 2 polyethylene glycol 3350 [Miralax] 17 gram/dose powder 17 g PO DAILY PRN (Reason: constipation) 90 Days Qty: 510 RF: 0 sumatriptan succinate 100 mg tablet See Rx Instructions PO .COMPLEX 30 Days Qty: 10 RF: 1 fludrocortisone 0.1 mg tablet 0.1 mg PO DAILY 30 Days Qty: 30 RF: 2 cholecalciferol (vitamin D3) 50 mcg (2,000 unit) capsule 50 mcg PO DAILY 90 Days Qty: 90 RF: 2 albuterol sulfate 2.5 mg /3 mL (0.083 %) solution for nebulization 2.5 mg inhalation QID PRN (Reason: shortness of breath or wheezing) 90 Days Qty: 180 RF: 0 fluoxetine 10 mg tablet 10 mg PO DAILY Qty: 90 RF: 0 meclizine 25 mg tablet 25 mg PO DAILY PRN (Reason: dizziness) 90 Days Qty: 90 RF: 0 topiramate 100 mg tablet 50 mg PO BID 30 Days Qty: 30 RF: 2 levothyroxine 25 mcg tablet 25 mcg PO DAILY Qty: 90 RF: 0 albuterol sulfate [ProAir HFA] 90 mcg/actuation HFA aerosol inhaler 2 puff inhalation Q6H PRN (Reason: shortness of breath or wheezing) Qty: 6.7 RF: 0 aspirin [Adult Low Dose Aspirin] 81 mg tablet,delayed release (DR/EC) 81 mg PO DAILY RF: 0 riboflavin (vitamin B2) 100 mg tablet 100 mg PO DAILY RF: 0 magnesium oxide 400 mg (241.3 mg magnesium) tablet 400 mg PO BEDTIME RF: 0 fluticasone propionate 50 mcg/actuation spray,suspension 1 spray intranasal DAILY 90 Days Qty: 15.8 RF: 1
== END 2021-04-14 13:53 | disposition home or self-care (01) ==
PROVIDERS: Emergency Provider Emergency Medicine Emergency Medical Services; PCP Nurse Practitioner Family
DX: R41.82 Altered mental status, unspecified (principal); F41.9 Anxiety disorder, unspecified; I12.9 Hypertensive chronic kidney disease with stage 1 through stage 4 chronic kidney disease, or unspecified chronic kidney disease; N18.9 Chronic kidney disease, unspecified; J45.909 Unspecified asthma, uncomplicated
CPT/HCPCS: 36415; 70450; 80048; 80076; 82077; 82550; 82947; 84484; 85025; 85610; 85730; 93005; 99285

== ENCOUNTER 2021-04-14 13:00 | Outpatient (REF) | payer OTHER, SELFPAY ==
--- NOTE | 2021-04-14 15:17 | MHC.AU.HFU ---
Hearing Instrument Follow-Up- Binaural Date of Visit: 04/14/21 Right Ear: Order Caller: Phonak Model: Audeo P70-R Serial Number: [id number] Repair Warranty: 05/28/2024 Loss and Damage Warranty: 05/28/2024 Battery Size: Rechargeable Color: P5 Camera Prototyping Engineer: 1M Type of Wax Guard: CeruShield Left Ear: Order Caller: Phonak Model: Audeo P70-R Serial Number: [id number] Repair Warranty: 05/28/2024 Loss and Damage Warranty: 05/28/2024 Battery Size: Rechargeable Color: P5 Camera Prototyping Engineer: 1M Type of Wax Guard: CeruShield Follow-Up Summary: Patient arrived at the hospital campus early and decided to go into the gift/coffee shop. While browsing, she reportedly had an episode where she became confused, was blinking rapidly, and started to sway. She felt like she was able to fall and was helped to the ground. An outpatient rapid response was called and the patient was brought to the ER for a Stroke Protocol assessment. Patient was awake and alert in the ER, but did not remember anything in between being in the coffee shop and arriving at the ER. Patient was upset that she would be unable to come to her appointment at our clinic, so the ER staff reached out and asked I could check in on her at the ER. I brought the new cShells down and was able to place them on her hearing aids. She reported they were comfortable and that she was hearing much better. She was able to put them in independently with practice. Showed patient how to replace the CeruStop wax guards. Patient was pleased with the new cShells. Per medical record, patient was discharged this afternoon. Recommendations: Recommendations: The front desk host staff will contact the patient tomorrow to schedule a hearing aid follow-up. Diagnosis Code(s): Primary Diagnosis: H90.3 Bilateral Sensorineural Hearing Loss Signature: Provider: Wilfredo Ramsey, IBIS-A
== END 2021-04-14 13:01 | disposition home or self-care (01) ==
LOC: HO.HAP 13:00
PROVIDERS: Visit Provider Nurse Practitioner Family
DX: Z46.1 Encounter for fitting and adjustment of hearing aid (principal); H90.3 Sensorineural hearing loss, bilateral
CPT/HCPCS: V5264

== ENCOUNTER 2021-04-21 10:37 | Outpatient (REF) | payer OTHER, SELFPAY | END 2021-04-21 10:38 | disposition home or self-care (01) | LOC: HO.HAP 10:37 | PROVIDERS: Visit Provider Nurse Practitioner Family | DX: Z13.89 Encounter for screening for other disorder (principal) ==

== ENCOUNTER 2021-07-01 13:29 | Outpatient (REF) | payer OTHER, SELFPAY ==
--- NOTE | ~2021-07-01 | XR_ITS ---
EXAMINATION: XR CHEST CLINICAL INFORMATION: Pneumonia COMPARISON: Previous chest x-ray April 2019 TECHNIQUE: 2 views of the chest were obtained. FINDINGS: The cardiac and mediastinal contours are stable. There is slight tenting of the right hemidiaphragm. This is unchanged. The lungs are clear. There is no pleural effusion or pneumothorax. There are degenerative changes of the spine. XR/XR chest 2V IMPRESSION: No evidence for acute disease in the chest.
[2021-07-01 14:25] LABS: Binax Internal Control QC Valid; Binax Now Covid-19 Ag Negative (Negative)
== END 2021-07-01 13:30 | disposition home or self-care (01) ==
LOC: HO.HMGCX 13:29
PROVIDERS: Visit Provider Internal Medicine
DX: Z20.822 Contact with and (suspected) exposure to COVID-19 (principal); J18.9 Pneumonia, unspecified organism; J06.9 Acute upper respiratory infection, unspecified
CPT/HCPCS: 71046

== ENCOUNTER 2021-07-18 13:34 | Outpatient (REF) | payer OTHER, SELFPAY ==
[2021-07-18 16:34] LABS: D Dimer High Sensitivity 282 NG/ML
== END 2021-07-18 13:35 | disposition home or self-care (01) ==
LOC: HO.HMGCLDS 13:34
PROVIDERS: Visit Provider Nurse Practitioner Family
DX: R06.00 Dyspnea, unspecified (principal); R07.9 Chest pain, unspecified; U07.1 COVID-19
CPT/HCPCS: 36415; 85379

== ENCOUNTER → 2021-07-27 12:51 | Outpatient (BNVA) | payer OTHER, SELFPAY | PROVIDERS: Visit Provider Nurse Practitioner Family | DX: R56.9 Unspecified convulsions (principal); R51.9 Headache, unspecified; G47.52 REM sleep behavior disorder | CPT/HCPCS: 99212 ==

== ENCOUNTER 2021-07-29 14:12 | Emergency (ER) | payer OTHER, SELFPAY ==
--- NOTE | ~2021-07-29 | CT_ITS ---
EXAMINATION: CT ANGIOGRAM OF THE CHEST WITH AND WITHOUT CONTRAST (CT PULMONARY ANGIOGRAM FOR PE) CLINICAL INFORMATION: Shortness of breath and elevated d-dimer. COMPARISON: Chest radiograph done earlier today at 5:47 PM. TECHNIQUE: Prior to contrast administration, noncontrast localization images were obtained. Subsequently, multidetector volumetric imaging was performed from the thoracic inlet to below the diaphragms following the administration of 80 mL Omnipaque 350 intravenous contrast. No contrast reaction reported Sagittal, coronal, and MIP oblique sagittal reformatted images were obtained on the CT workstation, uploaded to PACS, and reviewed. This CT examination was performed using dose optimization techniques as appropriate, variously including the following: *Automated exposure control *Adjustment of mA and/or kV according to patient size (this includes techniques or standardized protocols for targeted exams where dose is matched to indication/reason for exam; i.e. extremities or head) *Use of iterative reconstruction technique Total exam dose-length product 186 mGy-cm FINDINGS: QUALITY OF STUDY/CONTRAST BOLUS: Satisfactory. PULMONARY ARTERIES: No central or segmental pulmonary emboli. THORACIC AORTA: No aneurysm or dissection. LUNG: No focal consolidation. Linear opacities in the lateral aspect of the right lower lobe likely represents scarring or subsegmental atelectasis. There are a few sub-4 mm pulmonary nodules. For example, a 0.4 cm pulmonary nodule in the right lower lobe (7:268), a 0.2 cm right upper lobe pulmonary nodule (7:212) and a 0.2 cm left upper lobe pulmonary nodule (7:231). The central airways are patent. There is no significant bronchial wall thickening, septal thickening nor groundglass opacities. PLEURA: No pleural effusion or pneumothorax. MEDIASTINUM: Normal heart size. No pericardial effusion. No hilar or mediastinal lymphadenopathy. No evidence of septal bowing or right heart strain. Likely prior left hemithyroidectomy. Correlate with surgical history. CHEST WALL/AXILLA: No axillary or internal mammary lymphadenopathy. OSSEOUS STRUCTURES: Chronic deformities of the right-sided fourth and fifth ribs. No acute or aggressive appearing osseous abnormalities. Thoracolumbar spondylosis. UPPER ABDOMEN: Water density liver cysts on images 53 and 56 of series 5. Small calcified granuloma in the spleen. No reflux of contrast into the hepatic veins to suggest elevated right heart pressures. CT/CT angio chest PE protocol IMPRESSION: No evidence of pulmonary embolism or increased right-sided heart pressures. No focal airspace opacities. Chronic scarring and/or subsegmental atelectasis in the right lower lobe. Scattered sub-4 mm pulmonary nodules. Assuming patient has no history of malignancy, recommend follow-up per Fleischner Society recommendations. According to the UPDATED 2017 Fleischner Society recommendations, the advised followup imaging for solid nodules < 6 mm is: LOW RISK PATIENT: No routine follow up. HIGH RISK PATIENT: Optional CT at 12 months. VTE: negative
--- NOTE | ~2021-07-29 | XR_ITS ---
EXAMINATION: XR CHEST CLINICAL INFORMATION: Chest pain. COMPARISON: Chest radiograph dated from 07/01/2021. TECHNIQUE: AP view of the chest was obtained. FINDINGS: Normal appearance of the cardiomediastinal silhouette. Redemonstration of chronic deformities in the posterior right-sided fourth and fifth ribs and stable scarring/tenting above the diaphragm in the right lower lobe. No new focal airspace opacities, pleural effusions or pneumothorax. No acute osseous abnormalities. XR/XR chest 1V IMPRESSION: No acute cardiopulmonary findings.
--- NOTE | ~2021-07-29 | US_ITS ---
EXAMINATION: US VENOUS ULTRASOUND WITH DOPPLER LOWER EXTREMITY, BILATERAL CLINICAL INFORMATION: Pain. COMPARISON: None. TECHNIQUE: Ultrasound of the deep veins is performed from the hip to the calf with compression sonography and color and pulse Doppler assessment. Spectral analysis with color-flow imaging is performed. FINDINGS: RIGHT: There is normal venous compression and respiratory variation and augmented flow. The visualized common femoral vein, superficial femoral vein, profunda femoral vein, popliteal vein, and the trifurcation region shows no evidence of deep venous thrombosis. There is no significant popliteal fossa cyst. LEFT: There is normal venous compression and respiratory variation and augmented flow. The visualized common femoral vein, superficial femoral vein, profunda femoral vein, popliteal vein, and the trifurcation region shows no evidence of deep venous thrombosis. There is no significant popliteal fossa cyst. If the patient's symptoms persist, followup ultrasound in 5 days 7 days might be of value to exclude proximal propagation from a non-visualized calf vein. US/US venous duplex LE BI IMPRESSION: No DVT demonstrated in the bilateral lower extremities.
--- NOTE | 2021-07-29 14:20 | ECG_ITS ---
Test Reason : chest pain Blood Pressure : / mmHG Vent. Rate : 078 BPM Atrial Rate : 078 BPM P-R Int : 164 ms QRS Dur : 080 ms QT Int : 382 ms P-R-T Axes : 070 053 064 degrees QTc Int : 435 ms Sinus rhythm with occasional Premature ventricular complexes Otherwise normal ECG When compared with ECG of 14-APR-2021 11:29, Premature ventricular complexes are now Present Referred By: Generic ED Physician Electronically Signed By:TABITHA CORRIGAN MD
[2021-07-29 14:31] VITALS: BP 142/52; PULSE 71; RESP 18; TEMP 36.4; O2SAT 100; BMI 24.0
[2021-07-29 15:38] LABS: MANUAL DIFF FLAG NO
[2021-07-29 15:43] LABS: Basophils Absolute Auto 0.1 X10*3/uL (0.0-0.2); Basophils Percent Auto 0.9 % (0-2); Eosinophils Absolute Auto 0.3 X10*3/uL (0.0-0.4); Hematocrit 39.3 % (37.0-47.0); Hemoglobin 12.4 g/dl (12.0-16.0); Imm Gran Abs Auto 0.02 X10*3/uL (0.00-0.03); Imm Gran Pct Auto 0.4 % (0.0-0.4); Lymphocytes Absolute Auto 1.5 X10*3/uL (1.2-4.9); Lymphocytes Percent Auto 27.7 % (20-40); Mean Corpuscular HGB Conc 31.6 g/dl (31.0-35.0); Mean Corpuscular Hemoglobin 29.9 pg (27.0-33.0); Mean Corpuscular Volume 94.7 fL (80.0-98.0); Mean Platelet Volume 9.8 fL (9.4-12.3); Monocytes Absolute Auto 0.5 X10*3/uL (0.1-1.2); Monocytes Percent Auto 8.6 % (2-11); Neutrophils Absolute Auto 3.2 x10*3/uL (2.0-8.3); Neutrophils Percent Auto 57.4 % (45-73); Platelet Count 226 X10*3/uL (160-400); Red Blood Count 4.15 X10*6/uL (4.20-5.50); Red Cell Distribution Width 14.7 % (11.0-16.0); White Blood Count 5.6 X10*3/uL (4.8-10.8)
[2021-07-29 15:52] LABS: D Dimer High Sensitivity 481 NG/ML
[2021-07-29 15:59] LABS: Anion Gap 10 (12-20); Blood Urea Nitrogen 16 mg/dL (9-16); Calcium 8.6 mg/dL (8.4-10.2); Carbon Dioxide 25 mmol/L (22-29); Chloride 109 mmol/L (96-108); Creatinine Clr Calc Pharmacy 43.2; Estimated Glomerular Filt Rate 56; Glucose Random 95 mg/dL (60-115); Potassium 4.3 mmol/L (3.3-5.1); Sodium 140 mmol/L (135-145)
[2021-07-29 16:03] LABS: Troponin-I High Sensitivity < 3.5 ng/L (<3.5-17.0)
[2021-07-29 17:53] VITALS: BP 175/85; PULSE 76; RESP 20; O2SAT 99
[2021-07-29 18:11] LABS: INTERNATIONAL NORM RATIO 0.9 (0.9-1.1); Prothrombin Time 10.4 SEC (9.9-13.0)
--- NOTE | 2021-07-29 18:11 | ED.RECABL ---
HPI - Recheck/Abnormal Lab/Rx General Chief Complaint: Recheck/Abnormal Lab/Rx Stated Complaint: QUEST BLOOD CLOT IN LUNG Time Seen by Provider: 07/29/21 16:16 Source: patient Mode of arrival: ambulatory Limitations: no limitations History of Present Illness HPI narrative: 66 year old female with a history of ataxia, conversion disorder, high cholesterol, hypothyroidism, asthma here with complaints of persistent cough, shortness of breath after recovering from COVID on July 11. Patient tells me prior to her diagnosis of July 11 she had about 2 weeks of cough and wheezing. She was seen by her primary care doctor and completed a course of antibiotics with continued symptoms. She was seen at [facility] on July 11 and diagnosed with COVID. She was given a course of steroids which she completed. She followed up 1 week post her ER visit and was complaining of continued cough, shortness of breath, fatigue, chest discomfort with coughing, bilateral calf pain, bilateral hand numbness. Patient had outpatient labs which showed an elevated D-dimer. She is waiting for preauthorization for a CT scan of her chest to rule out a PE. Due to delay patient presented today for further evaluation Related Data Home Medications Medication Instructions Recorded Confirmed aspirin 81 mg tablet,delayed 81 mg PO DAILY 07/05/20 07/27/21 release (Adult Low Dose Aspirin) magnesium oxide 400 mg (241.3 mg 400 mg PO BEDTIME 12/22/20 07/27/21 magnesium) tablet riboflavin (vitamin B2) 100 mg 100 mg PO DAILY 12/22/20 07/27/21 tablet Previous Rx's Medication Instructions Recorded atorvastatin 40 mg tablet 40 mg PO DAILY 90 Days #90 tab 12/26/20 fludrocortisone 0.1 mg tablet 0.1 mg PO DAILY 30 Days #30 tab 12/26/20 montelukast 10 mg tablet 10 mg PO DAILY 90 Days #90 tab 12/26/20 polyethylene glycol 3350 17 17 g PO DAILY PRN 90 Days #510 g 12/26/20 gram/dose oral powder (Miralax) sumatriptan succinate 100 mg tablet See Rx Instructions PO .COMPLEX 30 12/26/20 Days #10 tab albuterol sulfate 2.5 mg (3 mL) INHALATION QID PRN 12/27/20 90 Days #180 ml cholecalciferol (vitamin D3) 50 50 mcg PO DAILY 90 Days #90 cap 12/27/20 mcg (2,000 unit) capsule fluticasone propionate 50 1 spray INTRANASAL DAILY 90 Days 03/23/21 mcg/actuation nasal #15.8 ml spray,suspension topiramate 100 mg tablet 50 mg PO BID 30 Days #30 tab 03/23/21 albuterol sulfate 90 mcg/actuation 2 puff INHALATION Q6H PRN #6.7 g 04/13/21 aerosol inhaler (ProAir HFA) clonazepam 0.5 mg tablet 0.5 mg PO BID PRN 90 Days #180 tab 04/30/21 fluticasone 250 mcg-salmeterol 50 1 ea PO BID #60 ea 04/30/21 mcg/dose blistr powdr for inhalation ([place]) fluoxetine 10 mg tablet 10 mg PO DAILY #90 tab 06/21/21 levothyroxine 25 mcg tablet 25 mcg PO DAILY #90 tab 06/21/21 meclizine 25 mg tablet 25 mg PO DAILY PRN 90 Days #90 tab 06/21/21 levofloxacin 500 mg tablet 500 mg PO DAILY #7 tab 07/01/21 prednisone 20 mg tablet 40 mg PO DAILY #10 tab 07/29/21 Allergies Allergy/AdvReac Type Severity Reaction Status Date / Time Penicillins [PENICILLINS] Allergy Intermediate HIVES Verified 07/27/21 12:53 carbamazepine [From Tegretol] Allergy Mild HIVES Verified 07/27/21 12:53 diflunisal [From Dolobid] Allergy Mild HIVES Verified 07/27/21 12:53 erythromycin base Allergy Mild HIVES Verified 07/27/21 12:53 [From Edwin-Tab] phenytoin [From Dilantin] Allergy Mild RASH,HIVES Verified 07/27/21 12:53 piroxicam [From Feldene] Allergy Mild HIVES Verified 07/27/21 12:53 sulfamethoxazole Allergy Mild HIVES Verified 07/27/21 12:53 [From Bactrim] trimethoprim [From Bactrim] Allergy Mild HIVES Verified 07/27/21 12:53 valproic acid [From Depakene] Allergy Mild HIVES Verified 07/27/21 12:53 Depakene Allergy Unknown Rash Verified 07/27/21 12:53 hydrochlorothiazide Allergy Unknown rash Verified 07/27/21 12:53 [HYDROCHLOROTHIAZIDE] lisinopril [LISINOPRIL] Allergy Unknown rash Verified 07/27/21 12:53 penicillin V Allergy Unknown Rash Verified 07/27/21 12:53 Sulfa (Sulfonamide Allergy Unknown Rash Verified 07/27/21 12:53 Antibiotics) codeine [Codeine] AdvReac Intermediate NAUSEA & Verified 07/27/21 12:53 VOMITING rash ENVIRONMENTAL Allergy Intermediate ASTHMA,LOSES Uncoded 03/23/21 12:30 VOICE TAPE,PLASTIC Allergy Intermediate RASH Uncoded 03/23/21 12:30 surgical tape Allergy Unknown unknown Uncoded 03/23/21 12:30 Review of Systems Review of Systems: Yes all other systems are reviewed and are negative Constitutional: Constitutional: Reports no additional constitutional complaints, Denies body ache(s), Denies chills, Reports fatigue, Denies fever(s), Denies headache(s) and Denies weakness Eyes: Eyes: Reports no additional eye complaints and Denies change in vision ENT: Reports system reviewed and no additional complaints, except as documented, Denies dizziness, Denies headache(s), Denies nasal congestion, Denies nasal discharge and Denies neck pain Cardiovascular: Cardiovascular: Reports no additional cardiovascular complaints, Reports chest pain, Denies leg edema and Reports dyspnea Respiratory: Respiratory: Reports no additional respiratory complaints, Reports cough, Reports dyspnea and Reports wheezing Gastrointestinal: Gastrointestinal: Reports no additional gastrointestinal complaints, Denies abdominal pain, Denies diarrhea, Denies nausea and Denies vomiting Genitourinary: Genitourinary: Reports no additional female genitourinary complaints and Denies urinary incontinence Musculoskeletal: Musculoskeletal: Reports no additional musculoskeletal complaints, Denies back pain, Denies arthralgias, Denies joint swelling, Denies neck pain, Denies numbness and Denies tingling Integumentary/Breasts: Skin/Breast: Reports system reviewed and no additional complaints, except as docu and Denies rash Neurologic: Reports system reviewed and no additional complaints, except as documented, Denies Abnormal speech present, Denies dizziness, Denies headache(s), Denies numbness, Denies tingling and Denies weakness Endocrine: Endocrine: Reports fatigue Allergic/Immunologic: Allergic/Immunologic: Reports wheezing PMFSH Past Medical History Attestation statement: The following information was validated with the patient. Source: old records reviewed and nursing notes reviewed Medical History Asthma Ataxic gait CKD (chronic kidney disease) Conversion disorder Conversion disorder with attacks or seizures, acute episode, with psychological stressor Depression HTN (hypertension) Hyperlipemia Hypothyroid Hypothyroid Muscle weakness Osteoporosis Seizures Surgical History History of ankle surgery History of arthroscopy of left knee History of arthroscopy of right knee History of hysterectomy History of lobectomy of thyroid History of right knee surgery Family History Family History Father CVD (cardiovascular disease) Stomach ulcer Cardiac arrest H/O heart bypass surgery Mother History of heart attack CHF (congestive heart failure) Lung cancer Diabetes mellitus High cholesterol HTN (hypertension) Hypothyroidism Sister Lung cancer Brother Colitis Sister No problems noted. Sister Obstetric pulmonary blood clot embolism, antepartum Social History Social History Alcohol intake: never Patient Tobacco Use Status: Never used Tobacco Advance Directives: No Advance Directives Information Provided: No Physical Exam Vital Signs: Vital Signs: Last Vital Signs Temp 97.6 F 07/29/21 14:31 Pulse 76 07/29/21 17:53 Resp 20 07/29/21 17:53 BP 175/85 H 07/29/21 17:53 Pulse Ox 99 07/29/21 17:53 BMI result Body Mass Index 24.0 Const: General: cooperative, healthy appearing, comfortable and no acute distress Orientation/consciousness: patient oriented x3 Limitations: no limitations HENMT: Head: Yes normal to inspection Ears: hearing grossly normal bilaterally General nose exam: Normal external nose present Face and sinus: Yes normal facial exam Mouth: Normal oral and palatal mucosa present Throat: Yes posterior oropharynx normal Eyes: General: appearance normal, both eyes and all related structures Pupils: Equal, round and reactive pupils present Neck: Neck: Yes normal visual inspection Chest: Other: Central chest tender to palpate with coughing and deep breathing Chest palpation & inspection: normal inspection of the chest Resp: Other: Mild expiratory wheezing throughout Effort & Inspection: normal respiratory effort Cardio: Rate: regular rate Rhythm: regular rhythm Peripheral pulses: Peripheral pulses 2+ throughout GI: Inspection: Yes normal to inspection Palpation (GI): Soft to palpation and nontender Auscultation: normal bowel sounds Back/Spine/Pelvis: Thoracic/Lumbar Spine: thoracic and lumbar spine normal to inspection Skin: General skin exam: no rashes or lesions noted Neuro: General: patient oriented x3, no focal motor deficits and normal sensation to monofilament Cranial nerves: Yes Equal, round and reactive pupils present Cognition (Neuro): normal cognition Speech: No Abnormal speech present Gait exam (Neuro): Normal gait present Motor exam (neuro): 5/5 motor strength present throughout Extrem: Other: Bilateral posterior calf tenderness with no palpable swelling, redness or warmth Neurovascular intact distally General: Yes normal to inspection and Yes no pedal edema Course Course Course Narrative: 66-year-old female here with persistent cough, shortness of breath, fatigue, chest discomfort with coughing, bilateral leg pain and some bilateral hand numbness post COVID. Patient had outpatient labs showed elevated D-dimer. She cannot get authorization for her CT scan of her chest from her insurance company. This prompted today's visit. On arrival the patient's vitals were stable. She does have some chest discomfort with coughing. Mild expiratory wheezing throughout. Bilateral posterior calf tenderness with no obvious swelling, redness or warmth. Will check labs, EKG, CT and ultrasound 2030-labs are unremarkable. EKG shows no ischemic changes. CT chest and ultrasound are negative for any DVT or PE. Patient does have some mild expiratory wheezing. She reports improvement in the past with prednisone. Will start her on a 5 day course of prednisone. She tells me that she has adequate albuterol inhaler and nebulizers at home. Recommend she continue this. Oxygen saturations are stable. No tachypnea. Speaking full sentences. Plan for discharge home with PCP follow-up. Reviewed worrisome signs and symptoms of when to return to the emergency department. Comfortable discharge home. MDM - Recheck/Abnormal Lab/Rx MDM Narrative Medical decision making narrative: PE, DVT Asthma exacerbation Pneumonia ACS less likely with symptoms greater than several weeks with negative troponin and EKG Medical Records Attestation: I reviewed the patient's medical records. Lab Data Attestation: I reviewed the patient's lab results. Result diagrams: 07/29/21 15:28 07/29/21 15:28 Labs: Lab Results 07/29/21 07/29/21 07/29/21 Range/Units 15:28 15:28 15:28 WBC 5.6 (4.8-10.8) X10*3/uL RBC 4.15 L (4.20-5.50) X10*6/uL Hgb 12.4 (12.0-16.0) g/dl Hct 39.3 (37.0-47.0) % MCV 94.7 (80.0-98.0) fL MCH 29.9 (27.0-33.0) pg MCHC 31.6 (31.0-35.0) g/dl RDW 14.7 (11.0-16.0) % Plt Count 226 (160-400) X10*3/uL MPV 9.8 (9.4-12.3) fL Immature Gran % (Auto) 0.4 (0.0-0.4) % Neut % (Auto) 57.4 (45-73) % Lymph % (Auto) 27.7 (20-40) % [place] % (Auto) 8.6 (2-11) % Eos % (Auto) 5.0 H (0-4) % Baso % (Auto) 0.9 (0-2) % Lymph # (Auto) 1.5 (1.2-4.9) X10*3/uL [place] # (Auto) 0.5 (0.1-1.2) X10*3/uL Eos # (Auto) 0.3 (0.0-0.4) X10*3/uL Baso # (Auto) 0.1 (0.0-0.2) X10*3/uL Abs Immat Gran (auto) 0.02 (0.00-0.03) X10*3/uL Absolute Neuts (auto) 3.2 (2.0-8.3) x10*3/uL Absolute Nucleated RBC 0.000 (0.0-0.012) X10*3/uL Nucleated RBC % (auto) 0.0 (0.0-0.2) /100WBC PT (9.9-13.0) SEC INR (0.9-1.1) APTT (24.1-38.0) SEC D-Dimer High Sensitivty NG/ML Sodium 140 (135-145) mmol/L Potassium 4.3 (3.3-5.1) mmol/L Chloride 109 H (96-108) mmol/L Carbon Dioxide 25 (22-29) mmol/L Anion Gap 10 L (12-20) BUN 16 (9-16) mg/dL Creatinine 0.99 (0.5-1.4) mg/dL Estim Creat Clear Calc 43.2 Estimated GFR 56 Random Glucose 95 (60-115) mg/dL Calcium 8.6 (8.4-10.2) mg/dL Magnesium 2.0 (1.6-2.6) mg/dL Total Bilirubin 0.3 (0.0-1.0) mg/dL Direct Bilirubin < 0.2 (0.0-0.5) mg/dL AST 22 (5-31) U/L ALT 11 (0-31) U/L Alkaline Phosphatase 78 (39-117) U/L Total Creatine Kinase 50 D (26-140) U/L Troponin I High Sens < 3.5 (<3.5-17.0) ng/L Total Protein 6.3 L (6.5-8.0) g/dL Albumin 3.7 (3.5-5.0) g/dL 07/29/21 Range/Units 15:28 WBC (4.8-10.8) X10*3/uL RBC (4.20-5.50) X10*6/uL Hgb (12.0-16.0) g/dl Hct (37.0-47.0) % MCV (80.0-98.0) fL MCH (27.0-33.0) pg MCHC (31.0-35.0) g/dl RDW (11.0-16.0) % Plt Count (160-400) X10*3/uL MPV (9.4-12.3) fL Immature Gran % (Auto) (0.0-0.4) % Neut % (Auto) (45-73) % Lymph % (Auto) (20-40) % [place] % (Auto) (2-11) % Eos % (Auto) (0-4) % Baso % (Auto) (0-2) % Lymph # (Auto) (1.2-4.9) X10*3/uL [place] # (Auto) (0.1-1.2) X10*3/uL Eos # (Auto) (0.0-0.4) X10*3/uL Baso # (Auto) (0.0-0.2) X10*3/uL Abs Immat Gran (auto) (0.00-0.03) X10*3/uL Absolute Neuts (auto) (2.0-8.3) x10*3/uL Absolute Nucleated RBC (0.0-0.012) X10*3/uL Nucleated RBC % (auto) (0.0-0.2) /100WBC PT 10.4 (9.9-13.0) SEC INR 0.9 (0.9-1.1) APTT 37.4 (24.1-38.0) SEC D-Dimer High Sensitivty 481 NG/ML Sodium (135-145) mmol/L Potassium (3.3-5.1) mmol/L Chloride (96-108) mmol/L Carbon Dioxide (22-29) mmol/L Anion Gap (12-20) BUN (9-16) mg/dL Creatinine (0.5-1.4) mg/dL Estim Creat Clear Calc Estimated GFR Random Glucose (60-115) mg/dL Calcium (8.4-10.2) mg/dL Magnesium (1.6-2.6) mg/dL Total Bilirubin (0.0-1.0) mg/dL Direct Bilirubin (0.0-0.5) mg/dL AST (5-31) U/L ALT (0-31) U/L Alkaline Phosphatase (39-117) U/L Total Creatine Kinase (26-140) U/L Troponin I High Sens (<3.5-17.0) ng/L Total Protein (6.5-8.0) g/dL Albumin (3.5-5.0) g/dL Imaging Data Chest x-ray: Attestation: I personally reviewed and interpreted this imaging study as follows: Radiologist's impression: [address] [address] XRay Report Signed Patient: Sarahy Neves MR#: [id number] : 1955 Acct:[id number] Age/Sex: 66 / F ADM Date: 07/29/21 Loc: HO.ED Attending Dr: Ordering Physician: Tiffanie Bansal DO Date of Service: 07/29/21 Procedure(s): XR chest 1V Accession Number(s): [id number] cc: Tiffanie Bansal DO~ EXAMINATION: XR CHEST CLINICAL INFORMATION: Chest pain. COMPARISON: Chest radiograph dated from 07/01/2021. TECHNIQUE: AP view of the chest was obtained. FINDINGS: Normal appearance of the cardiomediastinal silhouette. Redemonstration of chronic deformities in the posterior right-sided fourth and fifth ribs and stable scarring/tenting above the diaphragm in the right lower lobe. No new focal airspace opacities, pleural effusions or pneumothorax. No acute osseous abnormalities. XR/XR chest 1V IMPRESSION: No acute cardiopulmonary findings. ? CT scan - chest: Attestation: I personally reviewed and interpreted this imaging study as follows: Radiologist's impression: IMPRESSION: No evidence of pulmonary embolism or increased right-sided heart pressures. ? No focal airspace opacities. Chronic scarring and/or subsegmental atelectasis in the right lower lobe. ? Scattered sub-4 mm pulmonary nodules. Assuming patient has no history of malignancy, recommend follow-up per Fleischner Society recommendations. According to the UPDATED 2017 Fleischner Society recommendations, the advised followup imaging for solid nodules < 6 mm is: ECG Data Attestation: I personally reviewed and interpreted this ECG as follows: ECG interpretation date: 07/29/21 ECG interpretation time: 14:20 Interpretation: Sinus rhythm with occasional PVCs, normal NH, normal QRS, normal QT Discharge Plan Discharge Clinical Impression: Asthma exacerbation Patient Disposition: Home, Self-Care Instructions: Asthma (DC) Additional Instructions: continue your daily medications follow-up with your PCP as discussed Prescriptions: New prednisone 20 mg tablet 40 mg PO DAILY Qty: 10 0RF No Action atorvastatin 40 mg tablet 40 mg PO DAILY 90 Days Qty: 90 2RF montelukast 10 mg tablet 10 mg PO DAILY 90 Days Qty: 90 2RF polyethylene glycol 3350 [Miralax] 17 gram/dose powder 17 g PO DAILY PRN (Reason: constipation) 90 Days Qty: 510 0RF sumatriptan succinate 100 mg tablet See Rx Instructions PO .COMPLEX 30 Days Qty: 10 1RF Rx Instructions: take 1 tab at onset of headache; if no relief, may repeat 1 tab after at least 2 hrs; max = 2 tabs/24 hrs PO fludrocortisone 0.1 mg tablet 0.1 mg PO DAILY 30 Days Qty: 30 2RF cholecalciferol (vitamin D3) 50 mcg (2,000 unit) capsule 50 mcg PO DAILY 90 Days Qty: 90 2RF albuterol sulfate 2.5 mg /3 mL (0.083 %) solution for nebulization 2.5 mg inhalation QID PRN (Reason: shortness of breath or wheezing) 90 Days Qty: 180 0RF Rx Instructions: for neb topiramate 100 mg tablet 50 mg PO BID 30 Days Qty: 30 2RF albuterol sulfate [ProAir HFA] 90 mcg/actuation HFA aerosol inhaler 2 puff inhalation Q6H PRN (Reason: shortness of breath or wheezing) Qty: 6.7 0RF fluticasone propion-salmeterol [Wixela Inhub] 250-50 mcg/dose blister with device 1 ea PO BID Qty: 60 4RF clonazepam 0.5 mg tablet 0.5 mg PO BID PRN (Reason: anxiety/agitation) 90 Days Qty: 180 0RF fluoxetine 10 mg tablet 10 mg PO DAILY Qty: 90 0RF levothyroxine 25 mcg tablet 25 mcg PO DAILY Qty: 90 0RF meclizine 25 mg tablet 25 mg PO DAILY PRN (Reason: dizziness) 90 Days Qty: 90 0RF aspirin [Adult Low Dose Aspirin] 81 mg tablet,delayed release (DR/EC) 81 mg PO DAILY 0RF riboflavin (vitamin B2) 100 mg tablet 100 mg PO DAILY 0RF magnesium oxide 400 mg (241.3 mg magnesium) tablet 400 mg PO BEDTIME 0RF fluticasone propionate 50 mcg/actuation spray,suspension 1 spray intranasal DAILY 90 Days Qty: 15.8 1RF Rx Instructions: administer into each nostril levofloxacin 500 mg tablet 500 mg PO DAILY Qty: 7 0RF Referrals: Case Duff, [facility] [Primary Care Provider] - 1 week Interventions: ED Discharge Assessment Last Done: 07/29/21 20:49 Discharge Date/Time: 07/29/21 20:50
[2021-07-29 18:14] LABS: Partial Thromboplastin Time 37.4 SEC (24.1-38.0)
[2021-07-29 18:25] LABS: Alanine Aminotransferase 11 U/L (0-31); Albumin Level 3.7 g/dL (3.5-5.0); Alkaline Phosphatase 78 U/L (39-117); Aspartate Amino Transferase 22 U/L (5-31); Bilirubin Direct < 0.2 mg/dL (0.0-0.5); Bilirubin Total 0.3 mg/dL (0.0-1.0); Total Protein 6.3 g/dL (6.5-8.0)
[2021-07-29] MEDS: iohexoL 350 MG/ML 100 ML INFUS..BTL IV (19:02)
== END 2021-07-29 20:50 | disposition home or self-care (01) ==
PROVIDERS: Nurse Practitioner Family; Emergency Provider Emergency Medicine; PCP Nurse Practitioner Family
DX: J45.901 Unspecified asthma with (acute) exacerbation (principal); M79.605 Pain in left leg; M79.604 Pain in right leg; R06.02 Shortness of breath; I12.9 Hypertensive chronic kidney disease with stage 1 through stage 4 chronic kidney disease, or unspecified chronic kidney disease; N18.9 Chronic kidney disease, unspecified; Z86.16 Personal history of COVID-19
CPT/HCPCS: 36415; 71045; 71275; 80048; 80076; 82550; 83735; 84484; 85025; 85379; 85610; 85730; 93005; 93970; 99284; Q9967

== ENCOUNTER 2021-09-27 11:16 | Outpatient (REF) | payer OTHER, SELFPAY | END 2021-09-27 11:17 | disposition home or self-care (01) | LOC: HO.HAP 11:16 | PROVIDERS: Visit Provider Nurse Practitioner Family | DX: H90.3 Sensorineural hearing loss, bilateral (principal); G47.52 REM sleep behavior disorder; R56.9 Unspecified convulsions; R51.9 Headache, unspecified; F32.9 Major depressive disorder, single episode, unspecified | CPT/HCPCS: 99212 ==

== ENCOUNTER 2021-09-30 09:26 | Outpatient (REF) | payer OTHER, SELFPAY ==
--- NOTE | ~2021-09-30 | XR_ITS ---
EXAMINATION: XR SHOULDER, RIGHT CLINICAL INFORMATION: Shoulder pain COMPARISON: None TECHNIQUE: Three views of the right shoulder. FINDINGS: Visualized portion of the proximal right humerus demonstrate no fracture. Humeral head demonstrates good articulation with the glenoid fossa. The acromioclavicular joint demonstrates only minimal hypertrophic changes. Visualized right-sided ribs and lung parenchyma are unremarkable. XR/XR shoulder RT min 2V IMPRESSION: Minimal degenerative changes of the right shoulder.
== END 2021-09-30 09:27 | disposition home or self-care (01) ==
LOC: HO.HOSX 09:26
PROVIDERS: Visit Provider Orthopaedic Surgery
DX: M54.12 Radiculopathy, cervical region (principal); M75.41 Impingement syndrome of right shoulder
CPT/HCPCS: 73030; 99202

== ENCOUNTER 2021-09-30 12:41 | Emergency (ER) | payer OTHER, SELFPAY ==
--- NOTE | 2021-09-30 12:48 | PC.NURSE ---
pt was brought to the ed from the main entrance by florencia munoz rn and Esha miles. Pt was initially laying on stretcher w eyes closed but flickering, pt awoke and jumped off the bed and started to walk out of the ED, pt did stop to speak with me for a couple minutes, she stated that she had seen dr Monique and that PT was recommended, pt refused ed treatment, and refused to speak with me further, she quickly walked out with her walker and asked security for her license back, ( had taken her license when her eyes were closed and laying on the hospital stretcher)
--- NOTE | 2021-09-30 13:43 | PC.NURSE ---
At approximately 1230, I along with with an operating room tech Esha were sent down to the main hospital entrance with a stretcher for a patient who passed out. Pt was found sitting on the bench outside of the main entrance. Pt appeared to be well hydrated, aware of surroundings skin P/w/d, RR even and unlabored. Pt was speaking full sentences. Pt stated I just could breath in this mask. Leave me alone . Per patient i don't' want to go to the ED, this has happened before and I was told it was anxiety. I don't want to be brushed off . Pt was encouraged to seek evaluation in the ED due to the ? syncopal episode. While attempting to get demographics and further interview the patient, pt closed her eyes, leaned forward, and did not respond to further communications from myself. RR remained 18 along with a strong steady pulse felt radially. Rate 80/regular/strong. Along with the security operations center analyst, we lifted the patient onto the awaiting stretcher and brought her to the ED.+ withdrawal from pain. I then lifted the patient's left arm up in the air to test for resistance gravity, the patient was able to keep her arm up in the air for approximately 5-10 seconds and gently lower it to the bed. Baseline VS were obtained. While attempting to get the patient registered, pt then opened her eyes stated i'm going home , exited her stretcher with a strong steady gait two attempts were made to get the patient back to the ED for evaluation. Pt refused. Pt requested her ID to be returned to her and ambulated to exit. No distress noted. airway patent. gait steady.
== END 2021-09-30 14:58 | disposition left against medical advice (07) ==
PROVIDERS: Emergency Provider Emergency Medicine; PCP Nurse Practitioner Family
DX: R55 Syncope and collapse (principal)

== ENCOUNTER 2021-11-04 10:00 | Outpatient (RCR) | payer OTHER, SELFPAY ==
--- NOTE | 2021-10-11 12:27 | MHC.PT.EP ---
[facility] [place] [facility] [place] [facility] [place] Office [address] Robin Polo [address] [phone] F: [phone] F: [phone] F: [phone] F: [phone] Physical Therapy Plan of Care Date of Evaluation: Date of Surgery: n/a Diagnosis: cervical radiculopathy, impingement of R shoulder Assessment: Patient is a 66 year old female presenting to PT with complaints of pain in her neck and R shoulder. Pt reports onset of pain began June 2021 due to her son grabbing her arm to prevent her from falling. She presents today with impairments in pain, posture, and strength. Pt's current occupation is none, with baseline physical activities including avery art , ADLs. Pt expresses detention goal of reducing pain, and is motivated to work towards this in PT. Clinical presentation today is most consistent with signs and sx associated with possible cervical radiculopathy although cannot rule out myofascial contribution and pt will benefit from skilled PT to address the following problems and impairments noted upon evaluation: pain, posture, and strength. These problems limit the patient with the following functional activities: avery art , ADLs. The prescribed treatment plan of care is medically necessary. Co-morbidities of seizures,CKD, ataxic gait, osteoporosis, HTN, Hx thyroid cancer, hx RC surgery, FALL RISK were identified and taken into considerations of plan of care. Pt was educated on HEP, role of PT, prognosis, POC. Frequency and Duration: The patient will be seen 2 x week x 4 weeks Short Term Goals: Pt will demonstrate pain at rest <4/10 in 2 weeks for improved QOL. Pt will demonstrate improved shoulder strength by 1/3 MMT in 2 weeks. Pt will demonstrate improved postural awareness by sitting with biomechanically correct posture without cues throughout session to improve overall postural function in 2 weeks. Pt will demonstrate ability to demonstrate good chin tuck with DNF recruitment in 2 weeks. Hall Coordinator Goals: Pt will demonstrate ability to use her avery art pen without difficulty in 4 weeks for return to her hobby. Pt will demonstrate ability to complete her ADLs with min to no pain in 4 weeks for return to PLOF. Treatment Plan: Modalities to reduce pain, spasms and effusion. Manual therapy to restore motion and function. Therapeutic exercise to improve strength and flexibility. Neuromuscular re-education for posture and balance. Therapeutic activities to return to functional activities of daily living. Electronically signed by: Hui Thomason PT, DPT, ATC Please sign and return to therapist. Thank you for your referral.
--- NOTE | 2021-11-04 10:36 | MHC.PT.DC ---
[facility] [place] [facility] [place] [facility] [place] [facility] [address] Robin Polo [address] [phone] F: [phone] F: [phone] F: [phone] F: [phone] Physical Therapy Discharge Report Diagnosis: cervical radiculopathy, impingement of R shoulder Date of Surgery: n/a Date of Evaluation: 10/11/21 Date of Discharge: 11/04/21 Treatments to Date: 6 Cancellations to Date: 2 No Shows to Date: 0 Discharge Status: Recommend MD Follow-up Discharge Summary: Pt is having less pain since beginning PT. However she is still experiencing dizziness and not feeling well which started last session and has not improved. Discussed with pt based on her feeling better with her shoulder and neck and now dealing with worsening dizziness that it is not appropriate to continue with PT. She is scheduled to see her PCP next Sunday and strongly encouraged her to discuss this dizziness and not feeling well with him. She verbalized understanding. At this point pt will be d/c from skilled PT as it is no longer indicated at this time. Electronically signed by: Hui Thomason, PT, DPT, ATC Please sign and return to therapist. Thank you for your referral.
== END 2021-11-04 10:37 | disposition home or self-care (01) ==
LOC: HO.PTCHIC 10:00
PROVIDERS: PCP Nurse Practitioner Family; Visit Provider Orthopaedic Surgery
DX: M54.12 Radiculopathy, cervical region (principal); M75.41 Impingement syndrome of right shoulder
CPT/HCPCS: 97110; 97163; 97535

== ENCOUNTER → 2021-12-20 08:19 | Outpatient (BNVA) | payer OTHER, SELFPAY | PROVIDERS: PCP Nurse Practitioner Family; Visit Provider Nurse Practitioner Family | DX: F44.5 Conversion disorder with seizures or convulsions (principal); G47.52 REM sleep behavior disorder; R51.9 Headache, unspecified | CPT/HCPCS: 99212 ==

== ENCOUNTER → 2021-12-21 10:29 | Outpatient (BNVA) | payer OTHER, SELFPAY | PROVIDERS: PCP Nurse Practitioner Family; Visit Provider Internal Medicine Endocrinology, Diabetes & Metabolism | DX: M81.0 Age-related osteoporosis without current pathological fracture (principal) | CPT/HCPCS: Q3014 ==

== ENCOUNTER 2021-12-28 08:45 | Outpatient (REF) | payer OTHER, SELFPAY ==
--- NOTE | ~2021-12-28 | MM_ITS ---
EXAMINATION: MM SCREENING DIGITAL BREAST TOMOSYNTHESIS, BILATERAL CLINICAL INFORMATION: Screening. Asymptomatic. The lifetime risk of breast cancer based on the Tyrer-Cuzick Model is 4.8%. COMPARISON: Mammography: September 20, 2020 and studies dating back to November 18, 2013 TECHNIQUE: Digital breast tomosynthesis is performed in both the craniocaudal and mediolateral oblique views along with computer-aided detection (CAD). Synthesized 2D images are generated from the tomosynthesis. FINDINGS: The breasts are heterogeneously dense, which may obscure small masses (ACR BI-RADS breast composition Category c). There are no significant masses, abnormal calcifications, or other abnormalities. MM/MM tomosynthesis screening BI IMPRESSION: There are no significant changes from prior study. ASSESSMENT: BI-RADS 1: Negative RECOMMENDATION: Routine annual mammography screening. This patient's information was entered into a reminder system with a target due date for their next mammogram.
[2021-12-28 09:57] LABS: MANUAL DIFF FLAG NO
[2021-12-28 10:34] LABS: Basophils Percent Auto 0.8 % (0-2); Eosinophils Absolute Auto 0.2 X10*3/uL (0.0-0.4); Eosinophils Percent Auto 4.7 % (0-4); Hematocrit 40.8 % (37.0-47.0); Hemoglobin 13.1 g/dl (12.0-16.0); Imm Gran Abs Auto 0.02 X10*3/uL (0.00-0.03); Imm Gran Pct Auto 0.4 % (0.0-0.4); Lymphocytes Absolute Auto 1.7 X10*3/uL (1.2-4.9); Lymphocytes Percent Auto 32.7 % (20-40); Mean Corpuscular HGB Conc 32.1 g/dl (31.0-35.0); Mean Corpuscular Hemoglobin 29.6 pg (27.0-33.0); Mean Corpuscular Volume 92.3 fL (80.0-98.0); Mean Platelet Volume 9.9 fL (9.4-12.3); Monocytes Absolute Auto 0.4 X10*3/uL (0.1-1.2); Monocytes Percent Auto 8.3 % (2-11); Neutrophils Absolute Auto 2.7 x10*3/uL (2.0-8.3); Neutrophils Percent Auto 53.1 % (45-73); Platelet Count 267 X10*3/uL (160-400); Red Blood Count 4.42 X10*6/uL (4.20-5.50); Red Cell Distribution Width 13.9 % (11.0-16.0); White Blood Count 5.1 X10*3/uL (4.8-10.8)
[2021-12-28 11:12] LABS: Alanine Aminotransferase 13 U/L (0-31); Albumin Level 3.9 g/dL (3.5-5.0); Alkaline Phosphatase 91 U/L (39-117); Anion Gap 10 (12-20); Aspartate Amino Transferase 20 U/L (5-31); Bilirubin Total 0.4 mg/dL (0.0-1.0); Blood Urea Nitrogen 14 mg/dL (9-16); Calcium 8.9 mg/dL (8.4-10.2); Carbon Dioxide 25 mmol/L (22-29); Chloride 110 mmol/L (96-108); Cholesterol 216 mg/dL; Estimated Glomerular Filt Rate > 60; Glucose Fasting 93 mg/dL (60-99); HDL Cholesterol 82 mg/dL; LDL Cholesterol Calculated 124 mg/dl; Phosphorus 3.5 mg/dL (2.7-4.5); Potassium 4.6 mmol/L (3.3-5.1); Sodium 140 mmol/L (135-145); Total Protein 6.4 g/dL (6.5-8.0); Triglycerides 52 mg/dL
[2021-12-28 11:21] LABS: Vitamin D 25-OH Total 44.2 ng/mL (>30)
[2022-01-02 22:41] LABS: Prot Elec - Albumin 3.9 g/dL (3.8-4.8); Prot Elec - Alpha1 0.3 g/dL (0.2-0.3); Prot Elec - Alpha2 0.6 g/dL (0.5-0.9); Prot Elec - Beta 1 0.4 g/dL (0.4-0.6); Prot Elec - Beta 2 0.3 g/dL (0.2-0.5); Prot Elec - Gamma 0.9 g/dL (0.8-1.7); Prot Elec - Total Protein 6.4 g/dL (6.1-8.1)
== END 2021-12-28 08:46 | disposition home or self-care (01) ==
LOC: HO.MAMMO 08:45
PROVIDERS: Absent Provider Internal Medicine Endocrinology, Diabetes & Metabolism; PCP Nurse Practitioner Family; Visit Provider Nurse Practitioner Family
DX: Z12.31 Encounter for screening mammogram for malignant neoplasm of breast (principal); I10 Essential (primary) hypertension; M81.0 Age-related osteoporosis without current pathological fracture
CPT/HCPCS: 36415; 77063; 77067; 80053; 80061; 82306; 84100; 84165; 84443; 85025

== ENCOUNTER 2022-02-09 10:02 | Outpatient (REF) | payer OTHER, SELFPAY ==
--- NOTE | ~2022-02-09 | XR_ITS ---
EXAMINATION: XR LUMBAR SPINE XR SACROILIAC JOINT CLINICAL INFORMATION: Low back pain and SI joint pain. COMPARISON: None TECHNIQUE: SI joint 3 views. Lumbar spine 3 views. FINDINGS: Lumbar Spine: There is normal lumbar lordosis. There is grade 1 anterolisthesis L4-L5. The rest of the vertebral heights and all vertebral alignment is normal. Mild loss of L4-L5 disc height is seen. No visible acute fracture, dislocation or lytic process seen. There is mild L4-L5 and L5-S1 facet joint arthropathy. No acute fracture or lytic process seen. The paravertebral soft tissues are normal. SI Joints: The SI joints are symmetrical without any bony erosive changes. There is no sclerosis or lytic process seen. The soft tissues are normal. There are 3 surgical alethea in the pelvis from previous intervention. XR/XR lumbar spine 2-3V IMPRESSION: Grade 1 anterolisthesis L4 over L5 and mild degenerative disc changes L4-L5 disc level. There is bilateral L4-L5 and L5-S1 facet joint arthropathy and hypertrophy. No acute fracture is seen. Unremarkable SI joints exam.
--- NOTE | ~2022-02-09 | XR_ITS ---
EXAMINATION: XR LUMBAR SPINE XR SACROILIAC JOINT CLINICAL INFORMATION: Low back pain and SI joint pain. COMPARISON: None TECHNIQUE: SI joint 3 views. Lumbar spine 3 views. FINDINGS: Lumbar Spine: There is normal lumbar lordosis. There is grade 1 anterolisthesis L4-L5. The rest of the vertebral heights and all vertebral alignment is normal. Mild loss of L4-L5 disc height is seen. No visible acute fracture, dislocation or lytic process seen. There is mild L4-L5 and L5-S1 facet joint arthropathy. No acute fracture or lytic process seen. The paravertebral soft tissues are normal. SI Joints: The SI joints are symmetrical without any bony erosive changes. There is no sclerosis or lytic process seen. The soft tissues are normal. There are 3 surgical alethea in the pelvis from previous intervention. XR/XR sacroiliac joint 1-2V IMPRESSION: Grade 1 anterolisthesis L4 over L5 and mild degenerative disc changes L4-L5 disc level. There is bilateral L4-L5 and L5-S1 facet joint arthropathy and hypertrophy. No acute fracture is seen. Unremarkable SI joints exam.
[2022-02-09 12:12] LABS: Total Volume 24 Hour Urine 2100 mL
[2022-02-09 12:40] LABS: Creatinine, 24Hr Urine 0.6 G/Day (1.0-2.0)
[2022-02-09 13:31] LABS: Appearance Urine Clear; Color Urine Yellow; Glucose Urine UA Negative (Negative); Leukocyte Esterase Urine Negative (Negative); Nitrite Urine Negative (Negative); PH 7.5 (5.0-9.0); Specific Gravity - Urine <= 1.005 (1.005-1.025); Urine Blood Negative (Negative); Urine Ketones Negative (Negative); Urine Protein Negative (Neg-Trace)
[2022-02-11 19:16] LABS: Calcium, 24 Hr Urine 86 mg/24 h; Calcium/Creatinine Ratio 128 mg/g creat (30-275); Creatinine 24Hr Urine 0.67 g/24 h (0.50-2.15)
== END 2022-02-09 10:03 | disposition home or self-care (01) ==
LOC: HO.HMGCLDS 10:02
PROVIDERS: Absent Provider Internal Medicine Endocrinology, Diabetes & Metabolism; PCP Nurse Practitioner Family; Visit Provider Nurse Practitioner Family
DX: M81.0 Age-related osteoporosis without current pathological fracture (principal); I10 Essential (primary) hypertension; M54.50 Low back pain, unspecified
CPT/HCPCS: 72100; 72200; 81003; 82340; 82570; 86335

== ENCOUNTER → 2022-03-28 10:55 | Outpatient (BNVA) | payer OTHER, SELFPAY | PROVIDERS: PCP Nurse Practitioner Family; Visit Provider Nurse Practitioner Family | DX: G47.52 REM sleep behavior disorder (principal); R51.9 Headache, unspecified; F44.5 Conversion disorder with seizures or convulsions; W19.XXXA Unspecified fall, initial encounter | CPT/HCPCS: 99212 ==

== ENCOUNTER 2022-04-05 12:22 | Emergency (ER) | payer OTHER, SELFPAY ==
--- NOTE | ~2022-04-05 | CT_ITS ---
EXAMINATION: CT HEAD WITHOUT CONTRAST CLINICAL INFORMATION: Altered mental status COMPARISON: 04/14/2021 TECHNIQUE: Contiguous axial imaging was performed from the skull base to vertex without intravenous administration of contrast. This CT examination was performed using dose optimization techniques as appropriate, variously including the following: *Automated exposure control *Adjustment of mA and/or kV according to patient size (this includes techniques or standardized protocols for targeted exams where dose is matched to indication/reason for exam; i.e. extremities or head) *Use of iterative reconstruction technique DLP: 570 mGy-cm FINDINGS: Intracranial structures are normal in appearance. Noel-white matter differentiation is preserved. No evolving infarct, mass lesion, mass effect, midline shift, hemorrhage or extra-axial fluid collections are identified. Intraorbital structures are unremarkable. Sinuses and mastoids are free of disease. Bony structures are intact. Soft tissues are unremarkable. CT/CT head/brain wo IV con IMPRESSION: No acute intracranial pathology.
[2022-04-05 12:49] VITALS: BP 124/80; PULSE 80; O2SAT 97
[2022-04-05 12:50] VITALS: BP 139/70; PULSE 77; RESP 18; TEMP 36.6; O2SAT 98; BMI 24.4
--- NOTE | 2022-04-05 12:56 | ECG_ITS ---
Test Reason : UNSTEADY GAIT Blood Pressure : / mmHG Vent. Rate : 067 BPM Atrial Rate : 067 BPM P-R Int : 182 ms QRS Dur : 086 ms QT Int : 396 ms P-R-T Axes : 063 028 048 degrees QTc Int : 418 ms Normal sinus rhythm Normal ECG When compared with ECG of 29-JUL-2021 14:20, Premature ventricular complexes are no longer Present Referred By: Carmen Eugene Electronically Signed By:YUSEF VEE MD
--- NOTE | 2022-04-05 12:58 | ED_ITS ---
HPI - General Adult General Chief complaint: General Medical Stated complaint: UNSTEADY AND CONFUSED PER EMS Time Seen by Provider: 04/05/22 12:36 Source: patient and EMS Mode of arrival: EMS Limitations: no limitations History of Present Illness HPI narrative: Patient comes to the emergency room via EMS from a convenience store. According to EMS, bystanders called because the patient had an episode of confusion. Patient states that she does not remember how she got to the convenience store, at this time patient states that she feels better and is ready to go home. Of note, reviewing patient's chart, patient has had similar episodes in the past, last episode record was in April 2021. 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 Related Data Home Medications Medication Instructions Recorded Confirmed aspirin 81 mg tablet,delayed 81 mg PO DAILY 07/05/20 03/28/22 release (Adult Low Dose Aspirin) fluoxetine 20 mg capsule mg PO DAILY 03/28/22 03/28/22 Previous Rx's Medication Instructions Recorded polyethylene glycol 3350 17 17 g PO DAILY PRN constipation 90 12/26/20 gram/dose oral powder (Miralax) days #510 grams sumatriptan succinate 100 mg tablet See Rx Instructions PO .COMPLEX 30 12/26/20 days #10 tabs betamethasone dipropionate 0.05 % 1 appl topical DAILY skin 09/01/21 topical cream irritation 14 days #45 grams ibuprofen 600 mg tablet 600 mg PO Q6H PRN headache 30 days 12/20/21 #20 tabs fluticasone propionate 50 1 spray intranasal DAILY 90 days 01/11/22 mcg/actuation nasal #15.8 mL spray,suspension albuterol sulfate 2.5 mg/3 mL 2.5 mg (3 mL) inhalation QID PRN 02/09/22 (0.083 %) solution for nebulization shortness of breath or wheezing 90 days #180 mL atorvastatin 40 mg tablet 40 mg PO DAILY 90 days #90 tabs 02/09/22 cholecalciferol (vitamin D3) 50 50 mcg PO DAILY 90 days #90 caps 02/09/22 mcg (2,000 unit) capsule fludrocortisone 0.1 mg tablet 0.1 mg PO DAILY for blood pressure 02/09/22 90 days #90 tabs fluoxetine 20 mg tablet 20 mg PO DAILY 90 days #90 tabs 02/09/22 fluticasone 250 mcg-salmeterol 50 1 ea PO BID #60 ea 02/09/22 mcg/dose blistr powdr for inhalation (Nia Inhub) levothyroxine 25 mcg tablet 25 mcg PO DAILY #90 tabs 02/09/22 magnesium oxide 400 mg (241.3 mg 400 mg PO BEDTIME diarrhea 90 days 02/09/22 magnesium) tablet #90 tabs montelukast 10 mg tablet 10 mg PO DAILY 90 days #90 tabs 02/09/22 riboflavin (vitamin B2) 100 mg 100 mg PO DAILY 90 days #90 tabs 02/09/22 tablet albuterol sulfate 90 mcg/actuation 2 puff inhalation Q6H PRN 03/17/22 aerosol inhaler (ProAir HFA) shortness of breath or wheezing #6.7 grams meclizine 25 mg tablet 25 mg PO DAILY PRN dizziness 90 03/19/22 days #90 tabs clonazepam 0.5 mg tablet 0.5 mg PO BID PRN 03/28/22 anxiety/agitation 90 days #180 tabs topiramate 100 mg tablet 100 mg PO BID 90 days #180 tabs 03/28/22 Allergies Allergy/AdvReac Type Severity Reaction Status Date / Time Penicillins [PENICILLINS] Allergy Intermediate HIVES Verified 03/28/22 11:09 carbamazepine [From Tegretol] Allergy Mild HIVES Verified 03/28/22 11:09 diflunisal [From Dolobid] Allergy Mild HIVES Verified 03/28/22 11:09 erythromycin base Allergy Mild HIVES Verified 03/28/22 11:09 [From Edwin-Tab] phenytoin [From Dilantin] Allergy Mild RASH,HIVES Verified 03/28/22 11:09 piroxicam [From Feldene] Allergy Mild HIVES Verified 03/28/22 11:09 sulfamethoxazole Allergy Mild HIVES Verified 03/28/22 11:09 [From Bactrim] trimethoprim [From Bactrim] Allergy Mild HIVES Verified 03/28/22 11:09 valproic acid [From Depakene] Allergy Mild HIVES Verified 03/28/22 11:09 Depakene Allergy Unknown Rash Verified 03/28/22 11:09 hydrochlorothiazide Allergy Unknown rash Verified 03/28/22 11:09 [HYDROCHLOROTHIAZIDE] lisinopril [LISINOPRIL] Allergy Unknown rash Verified 03/28/22 11:09 penicillin V Allergy Unknown Rash Verified 03/28/22 11:09 Sulfa (Sulfonamide Allergy Unknown Rash Verified 03/28/22 11:09 Antibiotics) codeine [Codeine] AdvReac Intermediate NAUSEA & Verified 03/28/22 11:09 VOMITING rash ENVIRONMENTAL Allergy Intermediate ASTHMA,LOSES Uncoded 03/28/22 11:09 VOICE TAPE,PLASTIC Allergy Intermediate RASH Uncoded 03/28/22 11:09 surgical tape Allergy Unknown unknown Uncoded 03/28/22 11:09 Review of Systems Review of Systems: Constitutional : No Weight loss, No Fever, No Chills, No Night Sweats, No Fatigue, No Malaise ENT/Mouth : No Hearing loss, No Ear Pain, No Nasal Congestion, No Sinus Pain, No Hoarseness, No sore throat, No Rhinorrhea, No Swallowing Difficulty Eyes: No Eye Pain, No Swelling, No Redness, No Foreign Body, No Discharge, No Vision Changes Cardiovascular : No Chest Pain, No SOB, No Dyspnea on Exertion, No Orthopnea, No Edema, No Palpitations Respiratory : No Cough, No Sputum, No Wheezing, No Smoke Exposure, No Dyspnea Gastrointestinal : No Nausea, No Vomiting, No Diarrhea, No Constipation, No abdominal Pain, No Hematochezia, No Melena Genitourinary : no irregular bleeding, No Dysuria, No Urinary Frequency, No Hematuria, No Urinary Incontinence, No Urgency, No Flank Pain, No Urinary Flow Changes, No Hesitancy Musculoskeletal : No joint pain, No Myalgias, No Joint Swelling Skin : No Skin Lesions, No rash Neuro : No Weakness, No Numbness, No Paresthesias, loss of consciousness, no headache, complaining of an episode of amnesia Psych : No Anxiety/Panic, No Depression, No SI/HI/AH/VH, No Social Issues, Heme/Lymph: No Bruising, No Bleeding,No Lymphadenopathy Endocrine : No Polyuria, No Polydipsia, No Temperature Intolerance [facility] Past Medical History Medical History Asthma Ataxic gait CKD (chronic kidney disease) Conversion disorder Conversion disorder with attacks or seizures, acute episode, with psychological stressor Depression HTN (hypertension) Hyperlipemia Hypothyroid Hypothyroid Muscle weakness Osteoporosis Seizures Surgical History History of ankle surgery History of arthroscopy of left knee History of arthroscopy of right knee History of hysterectomy History of lobectomy of thyroid History of right knee surgery Family History Family History Father CVD (cardiovascular disease) Stomach ulcer Cardiac arrest H/O heart bypass surgery Mother History of heart attack CHF (congestive heart failure) Lung cancer Diabetes mellitus High cholesterol HTN (hypertension) Hypothyroidism Sister Lung cancer Brother Colitis Sister No problems noted. Sister Obstetric pulmonary blood clot embolism, antepartum Social History Social History Housing: House Alcohol intake: never Patient Tobacco Use Status: Never used Tobacco e-Cigarette/Vaping Use: Never Used Second Hand Smoke Exposure: No Advance Directives: No Current occupational status: disabled Cognitive needs: No Hearing needs: No Vision needs: No Physical Exam ED Vital Signs: Vital Signs - 24 hr 04/05/22 12:50 04/05/22 18:16 Temperature 98 F 97.9 F Pulse Rate 77 66 Respiratory Rate 18 16 Blood Pressure 139/70 129/65 Pulse Oximetry 98 96 Oxygen Delivery Method Room Air Room Air BMI result Body Mass Index 24.4 Const Other: Appearance: Alert. Oriented X3. No acute distress. Eyes: Pupils equal, round and reactive to light. ENT: Pharynx normal. Neck: Normal inspection. Neck supple. No lymph nodes noted. No crepitus CVS: Normal heart rate and rhythm. Pulses normal. Normal S1 and S2 Respiratory: No respiratory distress. Breath sounds normal. No Wheezing. No rales Abdomen: Soft and nontender. No rigidity. No distention. Skin: Skin warm and dry. Normal skin color. Normal skin turgor. Extremities: No lower extremity edema. No Lacerations. No Rash Neuro: Oriented X 3. No motor deficit. No sensory deficit. Moving all extremities. No slurred speech. CN 2 through 12 grossly intact Psych: calm, cooperative, normal affect Course Course Course Narrative: On arrival to the emergency room, patient alert and oriented x4, no acute distress, states she does not remember exactly what happened, denies any headache, no head injury reported. Reviewing patient's records, patient has had similar episodes in the past. Of patient's labs and imaging pending. Patient's head CT within normal limits, EKG normal, troponin negative. Patient alert and oriented x4, no acute distress, ambulatory with normal steady gait unassisted. Patient feels well, ready to be discharged. Patient has previously been evaluated for similar episodes as she presented today. Diagnosed with anxiety. Medical Decision Making Lab Data Result diagrams: 04/05/22 13:50 04/05/22 13:50 Labs: Lab Results 04/05/22 04/05/22 04/05/22 Range/Units 13:50 13:50 13:50 WBC 5.8 (4.8-10.8) X10*3/uL RBC 4.21 (4.20-5.50) X10*6/uL Hgb 12.6 (12.0-16.0) g/dl Hct 40.1 (37.0-47.0) % MCV 95.2 (80.0-98.0) fL MCH 29.9 (27.0-33.0) pg MCHC 31.4 (31.0-35.0) g/dl RDW 14.0 (11.0-16.0) % Plt Count 289 (160-400) X10*3/uL MPV 9.7 (9.4-12.3) fL Immature Gran % (Auto) 0.5 H (0.0-0.4) % Neut % (Auto) 61.1 (45-73) % Lymph % (Auto) 22.0 (20-40) % Stewart % (Auto) 9.3 (2-11) % Eos % (Auto) 5.9 H (0-4) % Baso % (Auto) 1.2 (0-2) % Lymph # (Auto) 1.3 (1.2-4.9) X10*3/uL Stewart # (Auto) 0.5 (0.1-1.2) X10*3/uL Eos # (Auto) 0.3 (0.0-0.4) X10*3/uL Baso # (Auto) 0.1 (0.0-0.2) X10*3/uL Abs Immat Gran (auto) 0.03 (0.00-0.03) X10*3/uL Absolute Neuts (auto) 3.5 (2.0-8.3) x10*3/uL Absolute Nucleated RBC 0.000 (0.0-0.012) X10*3/uL Nucleated RBC % (auto) 0.0 (0.0-0.2) /100WBC Sodium 142 (135-145) mmol/L Potassium 4.4 (3.3-5.1) mmol/L Chloride 111 H (96-108) mmol/L Carbon Dioxide 22 (22-29) mmol/L Anion Gap 13 (12-20) BUN 20 H (9-16) mg/dL Creatinine 0.94 (0.5-1.4) mg/dL Estim Creat Clear Calc 45.1 Estimated GFR 59 Random Glucose 95 (60-115) mg/dL Lactic Acid 0.6 (0.5-2.0) mmol/L Calcium 9.0 (8.4-10.2) mg/dL Magnesium 2.1 (1.6-2.6) mg/dL Total Bilirubin 0.2 (0.0-1.0) mg/dL Direct Bilirubin < 0.2 (0.0-0.5) mg/dL AST 27 (5-31) U/L ALT 21 (0-31) U/L Alkaline Phosphatase 75 (39-117) U/L Troponin I High Sens (<3.5-17.0) ng/L Total Protein 6.4 L (6.5-8.0) g/dL Albumin 3.9 (3.5-5.0) g/dL Urine Color Urine Appearance Urine pH (5.0-9.0) Ur Specific [place] (1.005-1.025) Urine Protein (Neg-Trace) mg/dL Urine Glucose (UA) (Negative) mg/dL Urine Ketones (Negative) mg/dL Urine Blood (Negative) Urine Nitrite (Negative) Ur Leukocyte Esterase (Negative) Urine RBC (0-2) /HPF Urine WBC (0-5) /HPF Ur Squamous Epith Cells (0-2) /HPF Urine Bacteria (None Seen) Hyaline Casts (0-2) /LPF Ethyl Alcohol mg/dL COVID-19 ([facility]) (Negative) COVID-19 Clin Com 04/05/22 04/05/22 04/05/22 Range/Units 13:50 13:50 13:50 WBC (4.8-10.8) X10*3/uL RBC (4.20-5.50) X10*6/uL Hgb (12.0-16.0) g/dl Hct (37.0-47.0) % MCV (80.0-98.0) fL MCH (27.0-33.0) pg MCHC (31.0-35.0) g/dl RDW (11.0-16.0) % Plt Count (160-400) X10*3/uL MPV (9.4-12.3) fL Immature Gran % (Auto) (0.0-0.4) % Neut % (Auto) (45-73) % Lymph % (Auto) (20-40) % Stewart % (Auto) (2-11) % Eos % (Auto) (0-4) % Baso % (Auto) (0-2) % Lymph # (Auto) (1.2-4.9) X10*3/uL Stewart # (Auto) (0.1-1.2) X10*3/uL Eos # (Auto) (0.0-0.4) X10*3/uL Baso # (Auto) (0.0-0.2) X10*3/uL Abs Immat Gran (auto) (0.00-0.03) X10*3/uL Absolute Neuts (auto) (2.0-8.3) x10*3/uL Absolute Nucleated RBC (0.0-0.012) X10*3/uL Nucleated RBC % (auto) (0.0-0.2) /100WBC Sodium (135-145) mmol/L Potassium (3.3-5.1) mmol/L Chloride (96-108) mmol/L Carbon Dioxide (22-29) mmol/L Anion Gap (12-20) BUN (9-16) mg/dL Creatinine (0.5-1.4) mg/dL Estim Creat Clear Calc Estimated GFR Random Glucose (60-115) mg/dL Lactic Acid (0.5-2.0) mmol/L Calcium (8.4-10.2) mg/dL Magnesium (1.6-2.6) mg/dL Total Bilirubin (0.0-1.0) mg/dL Direct Bilirubin (0.0-0.5) mg/dL AST (5-31) U/L ALT (0-31) U/L Alkaline Phosphatase (39-117) U/L Troponin I High Sens < 3.5 (<3.5-17.0) ng/L Total Protein (6.5-8.0) g/dL Albumin (3.5-5.0) g/dL Urine Color Urine Appearance Urine pH (5.0-9.0) Ur Specific [place] (1.005-1.025) Urine Protein (Neg-Trace) mg/dL Urine Glucose (UA) (Negative) mg/dL Urine Ketones (Negative) mg/dL Urine Blood (Negative) Urine Nitrite (Negative) Ur Leukocyte Esterase (Negative) Urine RBC (0-2) /HPF Urine WBC (0-5) /HPF Ur Squamous Epith Cells (0-2) /HPF Urine Bacteria (None Seen) Hyaline Casts (0-2) /LPF Ethyl Alcohol < 10 mg/dL COVID-19 ([facility]) Negative (Negative) COVID-19 Clin Com See Note 04/05/22 Range/Units 16:36 WBC (4.8-10.8) X10*3/uL RBC (4.20-5.50) X10*6/uL Hgb (12.0-16.0) g/dl Hct (37.0-47.0) % MCV (80.0-98.0) fL MCH (27.0-33.0) pg MCHC (31.0-35.0) g/dl RDW (11.0-16.0) % Plt Count (160-400) X10*3/uL MPV (9.4-12.3) fL Immature Gran % (Auto) (0.0-0.4) % Neut % (Auto) (45-73) % Lymph % (Auto) (20-40) % Stewart % (Auto) (2-11) % Eos % (Auto) (0-4) % Baso % (Auto) (0-2) % Lymph # (Auto) (1.2-4.9) X10*3/uL Stewart # (Auto) (0.1-1.2) X10*3/uL Eos # (Auto) (0.0-0.4) X10*3/uL Baso # (Auto) (0.0-0.2) X10*3/uL Abs Immat Gran (auto) (0.00-0.03) X10*3/uL Absolute Neuts (auto) (2.0-8.3) x10*3/uL Absolute Nucleated RBC (0.0-0.012) X10*3/uL Nucleated RBC % (auto) (0.0-0.2) /100WBC Sodium (135-145) mmol/L Potassium (3.3-5.1) mmol/L Chloride (96-108) mmol/L Carbon Dioxide (22-29) mmol/L Anion Gap (12-20) BUN (9-16) mg/dL Creatinine (0.5-1.4) mg/dL Estim Creat Clear Calc Estimated GFR Random Glucose (60-115) mg/dL Lactic Acid (0.5-2.0) mmol/L Calcium (8.4-10.2) mg/dL Magnesium (1.6-2.6) mg/dL Total Bilirubin (0.0-1.0) mg/dL Direct Bilirubin (0.0-0.5) mg/dL AST (5-31) U/L ALT (0-31) U/L Alkaline Phosphatase (39-117) U/L Troponin I High Sens (<3.5-17.0) ng/L Total Protein (6.5-8.0) g/dL Albumin (3.5-5.0) g/dL Urine Color Yellow Urine Appearance Clear Urine pH 6.0 (5.0-9.0) Ur Specific [place] <= 1.005 (1.005-1.025) Urine Protein Negative (Neg-Trace) mg/dL Urine Glucose (UA) Negative (Negative) mg/dL Urine Ketones Negative (Negative) mg/dL Urine Blood Trace H (Negative) Urine Nitrite Negative (Negative) Ur Leukocyte Esterase Negative (Negative) Urine RBC 0-2 (0-2) /HPF Urine WBC 0-5 (0-5) /HPF Ur Squamous Epith Cells 0-2 (0-2) /HPF Urine Bacteria None Seen (None Seen) Hyaline Casts 0-2 (0-2) /LPF Ethyl Alcohol mg/dL COVID-19 ([facility]) (Negative) COVID-19 Clin Com Imaging Data CT scan - head: Radiologist's impression: FINDINGS: Intracranial structures are normal in appearance. Noel-white matter differentiation is preserved. No evolving infarct, mass lesion, mass effect, midline shift, hemorrhage or extra-axial fluid collections are identified. Intraorbital structures are unremarkable. Sinuses and mastoids are free of disease. Bony structures are intact. Soft tissues are unremarkable. ? CT/CT head/brain wo IV con IMPRESSION: No acute intracranial pathology. Discharge Plan Discharge Clinical Impression: Acute alteration in mental status, Anxiety Patient Disposition: Home, Self-Care Instructions: Anxiety (ED) Additional Instructions: Please follow-up with your primary care physician tomorrow. If you have any worsening or new symptoms, please return to the emergency room or call 911 Prescriptions: No Action polyethylene glycol 3350 [Miralax] 17 gram/dose powder 17 g PO DAILY PRN (Reason: constipation) 90 Days Qty: 510 0RF sumatriptan succinate 100 mg tablet See Rx Instructions PO .COMPLEX 30 Days Qty: 10 1RF Rx Instructions: take 1 tab at onset of headache; if no relief, may repeat 1 tab after at least 2 hrs; max = 2 tabs/24 hrs PO fluticasone propionate 50 mcg/actuation spray,suspension 1 spray intranasal DAILY 90 Days Qty: 15.8 1RF Rx Instructions: administer into each nostril albuterol sulfate [ProAir HFA] 90 mcg/actuation HFA aerosol inhaler 2 puff inhalation Q6H PRN (Reason: shortness of breath or wheezing) Qty: 6.7 0RF meclizine 25 mg tablet 25 mg PO DAILY PRN (Reason: dizziness) 90 Days Qty: 90 0RF aspirin [Adult Low Dose Aspirin] 81 mg tablet,delayed release (DR/EC) 81 mg PO DAILY betamethasone dipropionate 0.05 % cream 1 appl topical DAILY 14 Days Qty: 45 0RF albuterol sulfate 2.5 mg /3 mL (0.083 %) solution for nebulization 2.5 mg inhalation QID PRN (Reason: shortness of breath or wheezing) 90 Days Qty: 180 0RF Rx Instructions: for neb atorvastatin 40 mg tablet 40 mg PO DAILY 90 Days Qty: 90 2RF cholecalciferol (vitamin D3) 50 mcg (2,000 unit) capsule 50 mcg PO DAILY 90 Days Qty: 90 2RF fludrocortisone 0.1 mg tablet 0.1 mg PO DAILY 90 Days Qty: 90 2RF fluoxetine 20 mg tablet 20 mg PO DAILY 90 Days Qty: 90 3RF fluticasone propion-salmeterol [Wixela Inhub] 250-50 mcg/dose blister with device 1 ea PO BID Qty: 60 4RF levothyroxine 25 mcg tablet 25 mcg PO DAILY Qty: 90 0RF magnesium oxide 400 mg (241.3 mg magnesium) tablet 400 mg PO BEDTIME 90 Days Qty: 90 6RF montelukast 10 mg tablet 10 mg PO DAILY 90 Days Qty: 90 2RF riboflavin (vitamin B2) 100 mg tablet 100 mg PO DAILY 90 Days Qty: 90 0RF ibuprofen 600 mg tablet 600 mg PO Q6H PRN (Reason: headache) 30 Days Qty: 20 1RF fluoxetine 20 mg capsule PO DAILY topiramate 100 mg tablet 100 mg PO BID 90 Days Qty: 180 1RF clonazepam 0.5 mg tablet 0.5 mg PO BID PRN (Reason: anxiety/agitation) 90 Days Qty: 180 0RF
[2022-04-05 13:56] LABS: MANUAL DIFF FLAG NO
[2022-04-05 14:00] LABS: Basophils Absolute Auto 0.1 X10*3/uL (0.0-0.2); Basophils Percent Auto 1.2 % (0-2); Eosinophils Absolute Auto 0.3 X10*3/uL (0.0-0.4); Eosinophils Percent Auto 5.9 % (0-4); Hematocrit 40.1 % (37.0-47.0); Hemoglobin 12.6 g/dl (12.0-16.0); Imm Gran Abs Auto 0.03 X10*3/uL (0.00-0.03); Imm Gran Pct Auto 0.5 % (0.0-0.4); Lymphocytes Absolute Auto 1.3 X10*3/uL (1.2-4.9); Mean Corpuscular HGB Conc 31.4 g/dl (31.0-35.0); Mean Corpuscular Hemoglobin 29.9 pg (27.0-33.0); Mean Corpuscular Volume 95.2 fL (80.0-98.0); Mean Platelet Volume 9.7 fL (9.4-12.3); Monocytes Absolute Auto 0.5 X10*3/uL (0.1-1.2); Monocytes Percent Auto 9.3 % (2-11); Neutrophils Absolute Auto 3.5 x10*3/uL (2.0-8.3); Neutrophils Percent Auto 61.1 % (45-73); Platelet Count 289 X10*3/uL (160-400); Red Blood Count 4.21 X10*6/uL (4.20-5.50); White Blood Count 5.8 X10*3/uL (4.8-10.8)
[2022-04-05 14:13] LABS: Lactic Acid 0.6 mmol/L (0.5-2.0)
[2022-04-05 14:14] LABS: COVID-19 Test Negative (Negative); IDNOW Serial# 9DB6401D
[2022-04-05 14:15] LABS: Ethanol < 10 mg/dL
[2022-04-05 14:18] LABS: Alanine Aminotransferase 21 U/L (0-31); Albumin Level 3.9 g/dL (3.5-5.0); Alkaline Phosphatase 75 U/L (39-117); Anion Gap 13 (12-20); Aspartate Amino Transferase 27 U/L (5-31); Bilirubin Direct < 0.2 mg/dL (0.0-0.5); Bilirubin Total 0.2 mg/dL (0.0-1.0); Blood Urea Nitrogen 20 mg/dL (9-16); Carbon Dioxide 22 mmol/L (22-29); Chloride 111 mmol/L (96-108); Creatinine Clr Calc Pharmacy 45.1; Estimated Glomerular Filt Rate 59; Glucose Random 95 mg/dL (60-115); Magnesium 2.1 mg/dL (1.6-2.6); Potassium 4.4 mmol/L (3.3-5.1); Sodium 142 mmol/L (135-145); Total Protein 6.4 g/dL (6.5-8.0)
[2022-04-05 14:25] LABS: Troponin-I High Sensitivity < 3.5 ng/L (<3.5-17.0)
[2022-04-05 16:53] LABS: Appearance Urine Clear; Color Urine Yellow; Glucose Urine UA Negative (Negative); Leukocyte Esterase Urine Negative (Negative); Nitrite Urine Negative (Negative); Specific Gravity - Urine <= 1.005 (1.005-1.025); UMIC TRIGGER UACC YES; Urine Blood Trace (Negative); Urine Ketones Negative (Negative); Urine Protein Negative (Neg-Trace)
[2022-04-05 16:58] LABS: Bacteria Urine None Seen (None Seen); Hyaline Casts Urine 0-2 /LPF (0-2); RBC Urine 0-2 /HPF (0-2); Squamous Epithelial Cell Urine 0-2 /HPF (0-2); WBC Urine 0-5 /HPF (0-5)
[2022-04-05 18:16] VITALS: BP 129/65; PULSE 66; RESP 16; TEMP 36.6; O2SAT 96
[2022-04-05 18:38] LABS: Amphetamine Screen Urine Not Detected (Not Detect); Barbiturates, Urine Not Detected (Not Detect); Benzodiazepines Screen Urine Not Detected (Not Detect); Cannabinoid Screen Urine Not Detected (Not Detect); Cocaine Screen Urine Not Detected (Not Detect); Fentanyl, urine Not Detected (Not Detect); Opiate Screen Urine Not Detected (Not Detect); Phencyclidine Screen Urine Not Detected (Not Detect)
== END 2022-04-05 19:12 | disposition home or self-care (01) ==
PROVIDERS: Emergency Provider Emergency Medicine; PCP Nurse Practitioner Family
DX: R41.82 Altered mental status, unspecified (principal); R26.81 Unsteadiness on feet; R51.9 Headache, unspecified; F41.1 Generalized anxiety disorder; F43.0 Acute stress reaction; Z20.822 Contact with and (suspected) exposure to COVID-19; Z79.899 Other long term (current) drug therapy
CPT/HCPCS: 36415; 70450; 80048; 80076; 80307; 81001; 82077; 83605; 83735; 84484; 85025; 87635; 93005; 99284

== ENCOUNTER 2022-05-03 14:47 | Outpatient (REF) | payer OTHER, SELFPAY ==
[2022-05-03 17:27] LABS: Influenza A PCR NEGATIVE (Negative); Influenza B PCR NEGATIVE (Negative); Resp Syncy Virus RNA Qual PCR NEGATIVE (Negative); SARS COV2 PCR INHOUSE NEGATIVE (Negative)
== END 2022-05-03 14:48 | disposition home or self-care (01) ==
LOC: HO.LAB 14:47
PROVIDERS: Visit Provider Nurse Practitioner Family
DX: Z20.822 Contact with and (suspected) exposure to COVID-19 (principal); H66.93 Otitis media, unspecified, bilateral; R52 Pain, unspecified
CPT/HCPCS: 0241U

== ENCOUNTER → 2022-05-23 09:06 | Outpatient (BNVA) | payer OTHER, SELFPAY | PROVIDERS: PCP Nurse Practitioner Family; Visit Provider Internal Medicine Endocrinology, Diabetes & Metabolism | DX: M81.0 Age-related osteoporosis without current pathological fracture (principal) | CPT/HCPCS: 99212 ==

== ENCOUNTER 2022-05-23 10:29 | Outpatient (REF) | payer SELFPAY | END 2022-05-23 10:30 | disposition home or self-care (01) | LOC: HO.HAP 10:29 | PROVIDERS: Visit Provider Nurse Practitioner Family | DX: Z46.1 Encounter for fitting and adjustment of hearing aid (principal); H90.3 Sensorineural hearing loss, bilateral | CPT/HCPCS: V5267 ==

== ENCOUNTER → 2022-08-08 08:33 | Outpatient (BNVA) | payer OTHER, SELFPAY | PROVIDERS: PCP Nurse Practitioner Family; Visit Provider Nurse Practitioner Family | DX: R51.9 Headache, unspecified (principal); R42 Dizziness and giddiness; H92.03 Otalgia, bilateral; F44.5 Conversion disorder with seizures or convulsions; G47.52 REM sleep behavior disorder | CPT/HCPCS: 99212 ==

== ENCOUNTER 2022-08-17 09:07 | Outpatient (REF) | payer OTHER, SELFPAY ==
[2022-08-17 09:22] LABS: MANUAL DIFF FLAG NO
[2022-08-17 09:59] LABS: Basophils Absolute Auto 0.1 X10*3/uL (0.0-0.2); Basophils Percent Auto 1.6 % (0-2); Eosinophils Absolute Auto 0.3 X10*3/uL (0.0-0.4); Eosinophils Percent Auto 5.8 % (0-4); Hematocrit 42.4 % (37.0-47.0); Hemoglobin 13.6 g/dl (12.0-16.0); Imm Gran Abs Auto 0.01 X10*3/uL (0.00-0.03); Imm Gran Pct Auto 0.2 % (0.0-0.4); Lymphocytes Absolute Auto 1.3 X10*3/uL (1.2-4.9); Lymphocytes Percent Auto 28.2 % (20-40); Mean Corpuscular HGB Conc 32.1 g/dl (31.0-35.0); Mean Corpuscular Hemoglobin 30.2 pg (27.0-33.0); Mean Corpuscular Volume 94.2 fL (80.0-98.0); Mean Platelet Volume 10.6 fL (9.4-12.3); Monocytes Absolute Auto 0.4 X10*3/uL (0.1-1.2); Monocytes Percent Auto 8.9 % (2-11); Neutrophils Absolute Auto 2.5 x10*3/uL (2.0-8.3); Neutrophils Percent Auto 55.3 % (45-73); Platelet Count 246 X10*3/uL (160-400); Red Cell Distribution Width 13.7 % (11.0-16.0); White Blood Count 4.5 X10*3/uL (4.8-10.8)
[2022-08-17 10:41] LABS: Alanine Aminotransferase 14 U/L (0-31); Albumin Level 4.1 g/dL (3.5-5.0); Alkaline Phosphatase 73 U/L (39-117); Anion Gap 9 (12-20); Aspartate Amino Transferase 24 U/L (5-31); Bilirubin Total 0.5 mg/dL (0.0-1.0); Blood Urea Nitrogen 11 mg/dL (9-16); Calcium 8.8 mg/dL (8.4-10.2); Carbon Dioxide 25 mmol/L (22-29); Chloride 108 mmol/L (96-108); Estimated Glomerular Filt Rate > 60; Glucose Random 87 mg/dL (60-115); Sodium 138 mmol/L (135-145); Total Protein 6.5 g/dL (6.5-8.0)
== END 2022-08-17 09:08 | disposition home or self-care (01) ==
LOC: HO.LAB 09:07
PROVIDERS: PCP Nurse Practitioner Family; Visit Provider Nurse Practitioner Family
DX: R51.9 Headache, unspecified (principal); R53.83 Other fatigue; I10 Essential (primary) hypertension
CPT/HCPCS: 36415; 80053; 85025

== ENCOUNTER 2022-08-31 08:51 | Outpatient (REF) | payer OTHER, SELFPAY ==
--- NOTE | ~2022-08-31 | MR_ITS ---
EXAMINATION: MR BRAIN WITHOUT AND WITH CONTRAST CLINICAL INFORMATION: Headache. COMPARISON: CT scan of the head 04/05/2022. MRI scan of the brain 02/17/2019. TECHNIQUE: Multiplanar, multisequence MRI of the brain was obtained before and after the intravenous administration of 6 mL Gadavist. FINDINGS: The 7th and 8th cranial nerve complexes are normal in course and caliber. No signal abnormality is seen in the inner ear structures on the precontrast axial T1-weighted sequence. Fluid signal is preserved within the cochleae, semicircular canals, and vestibules on the high-resolution axial FIESTA sequence. No cerebellopontine angle lesion is noted. There is no abnormal labyrinthine or intracanalicular enhancement on postcontrast imaging. No diffusion abnormalities are identified to suggest an acute or subacute infarct. No mass effect or midline shift is seen. There is mild commensurate prominence of the ventricles and sulci consistent with diffuse volume loss. The study redemonstrates an area of increased FLAIR signal in the left periventricular white matter/cooper radiata which is unchanged. No extra-axial fluid collections are seen. The brainstem appears normal. On postcontrast imaging, there is no abnormal parenchymal or leptomeningeal enhancement. No pathologic magnetic susceptibility artifact is identified on the gradient refocused acquisition. The cerebellar tonsils have normal contour and position, and the craniocervical junction appears normal. Marrow signal and midline structures are normal. There is hyperostosis frontalis interna The major intracranial flow-voids at the level of the [place] of [place] are preserved. The dural venous sinus flow-voids are maintained. There is trace fluid at the left mastoid tip, demonstrated on the prior CT scan. MR/MR head/brain wo/w con IMPRESSION: 1. There are no acute bleeds or territorial infarcts. No masses are demonstrated. There is no abnormal enhancement. 2. There is mild diffuse volume loss. The study redemonstrates a focus of increased FLAIR signal in the left cooper radiata, which is unchanged. 3. The CP angles and internal auditory canals appear normal.
== END 2022-08-31 08:52 | disposition home or self-care (01) ==
LOC: HO.MRI 08:51
PROVIDERS: PCP Nurse Practitioner Family; Visit Provider Nurse Practitioner Family
DX: R51.9 Headache, unspecified (principal); R42 Dizziness and giddiness; H92.03 Otalgia, bilateral
CPT/HCPCS: 70553; A9585

== ENCOUNTER 2022-11-21 10:29 | Outpatient (REF) | payer OTHER, SELFPAY ==
[2022-11-21 10:55] LABS: MANUAL DIFF FLAG NO
[2022-11-21 11:26] LABS: Basophils Absolute Auto 0.1 X10*3/uL (0.0-0.2); Eosinophils Absolute Auto 0.2 X10*3/uL (0.0-0.4); Eosinophils Percent Auto 3.6 % (0-4); Hemoglobin 13.3 g/dl (12.0-16.0); Imm Gran Abs Auto 0.01 X10*3/uL (0.00-0.03); Imm Gran Pct Auto 0.2 % (0.0-0.4); Lymphocytes Absolute Auto 1.4 X10*3/uL (1.2-4.9); Lymphocytes Percent Auto 28.2 % (20-40); Mean Corpuscular HGB Conc 31.7 g/dl (31.0-35.0); Mean Corpuscular Hemoglobin 29.7 pg (27.0-33.0); Mean Corpuscular Volume 93.8 fL (80.0-98.0); Mean Platelet Volume 9.9 fL (9.4-12.3); Monocytes Absolute Auto 0.4 X10*3/uL (0.1-1.2); Monocytes Percent Auto 7.2 % (2-11); Neutrophils Percent Auto 59.8 % (45-73); Platelet Count 276 X10*3/uL (160-400); Red Blood Count 4.48 X10*6/uL (4.20-5.50); Red Cell Distribution Width 13.8 % (11.0-16.0)
[2022-11-21 12:06] LABS: Appearance Urine Clear; Color Urine Yellow; Glucose Urine UA Negative (Negative); Leukocyte Esterase Urine Negative (Negative); Nitrite Urine Negative (Negative); PH 5.5 (5.0-9.0); UMIC TRIGGER UACC YES; Urine Blood Trace (Negative); Urine Ketones Negative (Negative); Urine Protein Negative (Neg-Trace)
[2022-11-21 12:08] LABS: Bacteria Urine None Seen (None Seen); Hyaline Casts Urine 0-2 /LPF (0-2); RBC Urine 0-2 /HPF (0-2); Squamous Epithelial Cell Urine 0-2 /HPF (0-2); WBC Urine 0-5 /HPF (0-5)
[2022-11-21 12:17] LABS: Alanine Aminotransferase 17 U/L (0-31); Alkaline Phosphatase 75 U/L (39-117); Anion Gap 10 (12-20); Aspartate Amino Transferase 32 U/L (5-31); Bilirubin Total 0.6 mg/dL (0.0-1.0); Blood Urea Nitrogen 13 mg/dL (9-16); Calcium 9.2 mg/dL (8.4-10.2); Carbon Dioxide 22 mmol/L (22-29); Chloride 109 mmol/L (96-108); Cholesterol 215 mg/dL; Estimated Glomerular Filt Rate > 60; Glucose Fasting 86 mg/dL (60-99); HDL Cholesterol 94 mg/dL; LDL Cholesterol Calculated 111 mg/dl; Potassium 3.3 mmol/L (3.3-5.1); Sodium 138 mmol/L (135-145); Total Protein 7.1 g/dL (6.5-8.0); Triglycerides 50 mg/dL
== END 2022-11-21 10:30 | disposition home or self-care (01) ==
LOC: HO.LAB 10:29
PROVIDERS: PCP Nurse Practitioner Family; Visit Provider Nurse Practitioner Family
DX: Z00.00 Encounter for general adult medical examination without abnormal findings (principal); M18.0 Bilateral primary osteoarthritis of first carpometacarpal joints; Z79.899 Other long term (current) drug therapy
CPT/HCPCS: 36415; 80053; 80061; 81001; 81003; 84443; 85025; 99212

== ENCOUNTER 2022-11-28 13:25 | Outpatient (REF) | payer OTHER, SELFPAY ==
--- NOTE | ~2022-11-28 | MM_ITS ---
EXAMINATION: BONE DENSITOMETRY CLINICAL INDICATION: Age-related osteoporosis without current pathological fracture. COMPARISON: Previous BD dated 09/14/2020 and baseline BD dated 11/18/2013. TECHNIQUE: Using a [employer] DXA System (software version: 13.1) manufactured by [employer], dual-energy x-ray absorptiometry was performed of the lumbar spine and left hip. The images are of good technical quality. Summary results are attached. FINDINGS: AP SPINE L1-L4: Current: BMD 1.120 g/cm2, Z-score 1.5, T-score -0.5, normal, 7.3% increase from previous, 8.4% decrease from baseline (<5% change is not significant). Prior: BMD 1.044 g/cm2. Baseline: BMD 1.223 g/cm2. LEFT FEMUR, NECK: Current: BMD 0.753 g/cm2, Z-score -0.2, T-score -2.1, osteopenia. Prior: BMD 0.683 g/cm2. Baseline: BMD 0.851 g/cm2. LEFT FEMUR, TOTAL: Current: BMD 0.767 g/cm2, Z-score -0.3, T-score -1.9, osteopenia, 7.7% increase from previous, 20.4% decrease from baseline (<5% change is not significant). Prior: BMD 0.712 g/cm2. Baseline: BMD 0.964 g/cm2. IDENTIFIED RISK FACTORS: Anticonvulsant, bilateral oophorectomy, early menopause, glucocorticoids (chronic), history of fracture (adult), hysterectomy, osteoporosis, recurrent falls, renal, secondary osteoporosis. HISTORY OF FRACTURE: Coccyx. MEDICATIONS: Calcium, vitamin D. MM/XR DEXA axial skeleton IMPRESSION: 1. DIAGNOSIS: Osteopenia based on the lowest T-score value of -2.1 in the femoral neck applying World Health Organization criteria. 2. 10-YEAR FRACTURE RISK PREDICTION, FRAX: Major osteoporotic fracture (clinical spine, forearm, hip or shoulder) 28.7%. Hip fracture 6.4%. 3. Treatment Recommendations: NOF guidelines recommend consideration for treatment in postmenopausal women and men age 50 and older presenting with the following: -A hip or vertebral (clinical or morphometric) fracture. -T-score less than or equal to -2.5 at the femoral neck or spine after appropriate evaluation to exclude secondary causes. -Low bone mass at the hip or spine and a 10-year fracture probability by FRAX of greater than or equal to 3% for hip fracture or greater than or equal to 20% for major osteoporotic fracture based on the [place] adapted WHO algorithm. 4. Other Recommendations: All treatment decisions require clinical judgment and consideration of individual patient factors, including patient preferences, comorbidities, previous drug use, risk factors not captured in the FRAX model (e.g. frailty, falls, vitamin D deficiency, increased bone turnover, interval significant decline in bone density) and possible under or overestimation of fracture risk by FRAX. Additional medical evaluation for secondary cause of low bone mineral density may be appropriate. FUTURE SCAN RECOMMENDATION: People with diagnosed cases of osteoporosis or at high risk for fracture should have regular bone mineral density tests. For patients eligible for Medicare, routine testing is allowed once every 2 years. The testing frequency can be increased to one year for patients who have rapidly progressing disease, those who are receiving or discontinuing medical therapy to restore bone mass, or have additional risk factors.
== END 2022-11-28 13:26 | disposition home or self-care (01) ==
LOC: HO.MAMMO 13:25
PROVIDERS: PCP Nurse Practitioner Family; Visit Provider Internal Medicine Endocrinology, Diabetes & Metabolism
DX: Z13.820 Encounter for screening for osteoporosis (principal); Z78.0 Asymptomatic menopausal state; M81.0 Age-related osteoporosis without current pathological fracture
CPT/HCPCS: 77080

== ENCOUNTER → 2022-12-11 10:41 | Outpatient (BNVA) | payer OTHER, SELFPAY | PROVIDERS: PCP Nurse Practitioner Family; Visit Provider Nurse Practitioner Family | DX: F44.5 Conversion disorder with seizures or convulsions (principal); G43.909 Migraine, unspecified, not intractable, without status migrainosus; F51.3 Sleepwalking [somnambulism] | CPT/HCPCS: 99212 ==

== ENCOUNTER 2023-01-15 09:03 | Outpatient (AMB) | payer OTHER, SELFPAY ==
[2023-01-15 09:42] VITALS: BP 130/78; PULSE 72; O2SAT 97; BMI 23.7
--- NOTE | 2023-01-15 09:42 | MHC.PC.OV ---
Vital Signs 01/15/23 09:42 Height 5 ft Weight 121 lb 8 oz BMI 23.7 BP 130/78 Blood Pressure Location Lt brachial Position Sitting Pulse 72 Pulse Source Pulse Oximeter Pulse Oximetry (%) 97 Oxygen Delivery Method Room Air Intake Visit Reasons: 4 Month follow up Allergies Penicillins [PENICILLINS] Allergy (Intermediate, Verified 01/15/23 09:47) HIVES carbamazepine [From Tegretol] Allergy (Mild, Verified 01/15/23 09:47) HIVES diflunisal [From Dolobid] Allergy (Mild, Verified 01/15/23 09:47) HIVES erythromycin base [From Edwin-Tab] Allergy (Mild, Verified 01/15/23 09:47) HIVES phenytoin [From Dilantin] Allergy (Mild, Verified 01/15/23 09:47) RASH,HIVES piroxicam [From Feldene] Allergy (Mild, Verified 01/15/23 09:47) HIVES sulfamethoxazole [From Bactrim] Allergy (Mild, Verified 01/15/23 09:47) HIVES trimethoprim [From Bactrim] Allergy (Mild, Verified 01/15/23 09:47) HIVES valproic acid [From Depakene] Allergy (Mild, Verified 01/15/23 09:47) HIVES Depakene Allergy (Unknown, Verified 01/15/23 09:47) Rash hydrochlorothiazide [HYDROCHLOROTHIAZIDE] Allergy (Unknown, Verified 01/15/23 09:47) rash lisinopril [LISINOPRIL] Allergy (Unknown, Verified 01/15/23 09:47) rash penicillin V Allergy (Unknown, Verified 01/15/23 09:47) Rash Sulfa (Sulfonamide Antibiotics) Allergy (Unknown, Verified 01/15/23 09:47) Rash codeine [Codeine] Adverse Reaction (Intermediate, Verified 01/15/23 09:47) NAUSEA & VOMITING rash ENVIRONMENTAL Allergy (Intermediate, Uncoded 01/15/23 09:47) ASTHMA,LOSES VOICE TAPE,PLASTIC Allergy (Intermediate, Uncoded 01/15/23 09:47) RASH surgical tape Allergy (Unknown, Uncoded 01/15/23 09:47) unknown Medication List - Last Reconciled 01/15/23 by Case Duff, SEMIAUTOMATIC TAPER OPERATOR-BC albuterol sulfate 2.5 mg (3 mL) inhalation QID PRN 90 days albuterol sulfate 90 mcg/actuation (ProAir HFA) 2 puffs inhalation Q6H PRN aspirin (Adult Low Dose Aspirin) 81 mg PO DAILY atorvastatin 40 mg PO DAILY 90 days betamethasone dipropionate 0.05% 1 appl topical DAILY 14 days cholecalciferol (vitamin D3) 50 mcg PO DAILY 90 days clonazepam 0.5 mg PO BID PRN 60 days cyproheptadine 4 mg PO BEDTIME 30 days fludrocortisone 0.1 mg PO DAILY 90 days fluoxetine 40 mg PO DAILY 90 days fluticasone propion-salmeterol 250-50 mcg/dose (Wixela Inhub) 1 ea PO BID fluticasone propionate 50 mcg/actuation 1 spray intranasal DAILY 90 days ibuprofen 600 mg PO TID PRN 30 days levothyroxine 25 mcg PO DAILY [Lifeline-Mobile unit As directed] magnesium oxide 400 mg PO BEDTIME 90 days meclizine 25 mg PO DAILY PRN 90 days montelukast 10 mg PO DAILY 90 days polyethylene glycol 3350 (Miralax) 17 grams PO DAILY PRN 90 days riboflavin (vitamin B2) 100 mg PO DAILY 90 days risedronate 35 mg PO QWEEK sumatriptan succinate take 1 tab at onset of headache; if no relief, may repeat 1 tab after at least 2 hrs; max = 2 tabs/24 hrs PO 30 days topiramate 100 mg PO BID 90 days Tobacco use date assessed: 01/15/23 Fall risk assessment: 2 + Falls in past year Last assessed Fall Risk: 01/15/23 Dental Screening Dental Screen Date: 01/15/23 Did you have a dental visit in the last 12 months?: No Did you have a dental problem in the last 6 months where you did not have access to dental care?: No Was dental information given to patient?: Patient has dentist HPI 4 Month follow up HPI Details HTN: Blood pressure is stable. Denies chest pain, headache, dizziness, and blurred vision. Hx of vitamin D and B12 deficiencies, will order labs. Pt reports increased shortness of breath. She had COVID 2 years ago and reports increased shortness of breath since then. Will order chest xr and do an EKG in office. [facility] Medical History Asthma Ataxic gait CKD (chronic kidney disease) Conversion disorder Conversion disorder with attacks or seizures, acute episode, with psychological stressor Depression HTN (hypertension) Hyperlipemia Hypothyroid Hypothyroid Muscle weakness Osteoporosis Seizures Surgical History History of ankle surgery History of arthroscopy of left knee History of arthroscopy of right knee History of hysterectomy History of lobectomy of thyroid History of right knee surgery Family History Father CVD (cardiovascular disease) Stomach ulcer Cardiac arrest H/O heart bypass surgery Mother History of heart attack CHF (congestive heart failure) Lung cancer Diabetes mellitus High cholesterol HTN (hypertension) Hypothyroidism Sister Lung cancer Substance use disorder Brother Colitis Sister No problems noted. Sister Obstetric pulmonary blood clot embolism, antepartum Paternal Aunt Mental health disorder Substance use disorder Maternal Grandmother Mental health disorder Family/Other Substance use disorder Social History Household Members: Family Household Members Other:: brother, 2 cats Housing: House Alcohol intake: never Patient Tobacco Use Status: Never used Tobacco e-Cigarette/Vaping Use: Never Used Second Hand Smoke Exposure: No Current occupational status: disabled Cognitive needs: No Hearing needs: No Vision needs: No Questionnaire Thrive Questionnaire Date Thrive assessed: 02/09/22 KATHRINE-7 AMB Questionnaire KATHRINE-7 Date KATHRINE - 7 assessed: 02/09/22 Source: Developed by Drs. Mirza Corona, Jelena Walton, Arnoldo Gonzalez and colleagues, with an educational liu from [employer]. Review of Systems Const Reports as per HPI Physical exam (Primary Care) Vital Signs: Last Vital Signs Pulse 72 01/15/23 09:42 BP 130/78 01/15/23 09:42 Pulse Ox 97 01/15/23 09:42 Oxygen Delivery Method Room Air 01/15/23 09:42 BMI result Body Mass Index 23.7 Tobacco/Smoking Status: Tobacco use Status Tobacco use date assessed 01/15/23 01/15/23 09:54 Patient Tobacco Use Status Never used Tobacco 01/15/23 09:54 e-Cigarette/Vaping Use Never Used 01/15/23 09:54 Thrive Assessment: Date of Thrive Assessment Date Thrive assessed 02/09/22 01/15/23 09:54 Const Other: using walker General: cooperative Orientation/consciousness: patient oriented x3 Resp Effort & Inspection: normal respiratory effort (faint wheeze to RML) Cardio Rate: regular rate Rhythm: regular rhythm Heart sounds: S1 normal heart sound present and S2 normal heart sound present Neuro General: patient oriented x3 Psych Appearance: grossly normal Mental Status: mental status grossly normal Speech and movement: Normal speech and movement present Affect: normal affect Attitude: cooperative Thought process: Normal thought process present Thought content: Normal thought content present Insight: Good insight present (Psych) Judgement: Good judgement present (Psych) Assessment and Plan Assessment & Plan (1) HTN (hypertension): Code(s): I10 - Essential (primary) hypertension Plan: Labs ordered (2) Vitamin D deficiency: Code(s): E55.9 - Vitamin D deficiency, unspecified Plan: Labs ordered (3) B12 deficiency: Code(s): E53.8 - Deficiency of other specified B group vitamins Plan: Labs ordered (4) SOB (shortness of breath): Code(s): R06.02 - Shortness of breath Plan The patient agreed to the use of a medical anthropologist for this encounter. Scribed for PRINCE Rosen- by Lulu Avila medical anthropologist, on 01/15/2023 at 10:05 EST. Orders: Orders Comprehensive [place]. Panel Fast Today I10 - Essential (primary) hypertension Lipid Panel Today I10 - Essential (primary) hypertension TSH reflex Free T4 Today I10 - Essential (primary) hypertension Complete Blood Count Auto Diff Today I10 - Essential (primary) hypertension UA CC w/rflx Micro + Cult Today I10 - Essential (primary) hypertension MM screening mammo BI Today Z12.31 - Encounter for screening mammogram for malignant neoplasm of breast Vitamin D 25-OH Total Today E55.9 - Vitamin D deficiency, unspecified Vitamin B12 and Folate Today E53.8 - Deficiency of other specified B group vitamins XR chest 2V Today R06.02 - Shortness of breath AMB EKG-In Office Today R06.02 - Shortness of breath Coding Level of Care Code Est Pt Level 3 (84138) Diagnoses HTN (hypertension) I10 Vitamin D deficiency E55.9 B12 deficiency E53.8 SOB (shortness of breath) R06.02
== END 2023-01-15 11:23 | disposition home or self-care (01) ==
PROVIDERS: Visit Provider Nurse Practitioner Family
DX: I10 Essential (primary) hypertension (principal); E55.9 Vitamin D deficiency, unspecified; E53.8 Deficiency of other specified B group vitamins; R06.02 Shortness of breath
CPT/HCPCS: 99213

== ENCOUNTER 2023-01-15 10:44 | Outpatient (REF) | payer OTHER, SELFPAY ==
--- NOTE | ~2023-01-15 | XR_ITS ---
EXAMINATION: XR CHEST CLINICAL INFORMATION: Shortness of breath. COMPARISON: 07/29/2021 chest radiograph. TECHNIQUE: 2 views of the chest were obtained. FINDINGS: Chronic posttraumatic/postsurgical changes in the right chest are again seen. The lungs are otherwise clear. There are no pleural effusions. The heart and mediastinal structures are unremarkable. XR/XR chest 2V IMPRESSION: Chronic posttraumatic/postsurgical changes in the right chest without acute cardiopulmonary process.
== END 2023-01-15 10:45 | disposition home or self-care (01) ==
LOC: HO.HMGCX 10:44
PROVIDERS: PCP Nurse Practitioner Family; Visit Provider Nurse Practitioner Family
DX: R06.02 Shortness of breath (principal)
CPT/HCPCS: 71046

== ENCOUNTER 2023-02-20 10:09 | Outpatient (REF) | payer OTHER, SELFPAY ==
--- NOTE | ~2023-02-20 | MM_ITS ---
EXAMINATION: MM SCREENING DIGITAL BREAST TOMOSYNTHESIS, BILATERAL CLINICAL INFORMATION: Screening. Asymptomatic. COMPARISON: Mammography: This study is compared with prior exams dating back to 2017. TECHNIQUE: Digital breast tomosynthesis is performed in both the craniocaudal and mediolateral oblique views along with computer-aided detection (CAD). Synthesized 2D images are generated from the tomosynthesis. FINDINGS: There are scattered areas of fibroglandular density (ACR BI-RADS breast composition Category b). There are no significant masses, abnormal calcifications, or other abnormalities. There are unchanged, scattered, benign calcifications in each breast. MM/MM tomosynthesis screening BI IMPRESSION: No mammographic evidence of malignancy. ASSESSMENT: BI-RADS BI-RADS 2 - Benign Findings RECOMMENDATION: Routine annual mammography screening. 1 year F/U This examination should not preclude the clinical evaluation of a suspicious palpable abnormality. This patient's information was entered into a reminder system with a target due date for their next mammogram.
[2023-02-20 10:30] LABS: MANUAL DIFF FLAG NO
[2023-02-20 10:51] LABS: Basophils Absolute Auto 0.1 X10*3/uL (0.0-0.2); Eosinophils Absolute Auto 0.2 X10*3/uL (0.0-0.4); Eosinophils Percent Auto 4.4 % (0-4); Hematocrit 42.4 % (37.0-47.0); Hemoglobin 13.6 g/dl (12.0-16.0); Imm Gran Abs Auto 0.02 X10*3/uL (0.00-0.03); Imm Gran Pct Auto 0.4 % (0.0-0.4); Lymphocytes Absolute Auto 1.8 X10*3/uL (1.2-4.9); Lymphocytes Percent Auto 34.5 % (20-40); Mean Corpuscular HGB Conc 32.1 g/dl (31.0-35.0); Mean Corpuscular Hemoglobin 30.3 pg (27.0-33.0); Mean Corpuscular Volume 94.4 fL (80.0-98.0); Mean Platelet Volume 9.8 fL (9.4-12.3); Monocytes Absolute Auto 0.4 X10*3/uL (0.1-1.2); Monocytes Percent Auto 8.4 % (2-11); Neutrophils Absolute Auto 2.7 x10*3/uL (2.0-8.3); Neutrophils Percent Auto 51.3 % (45-73); Platelet Count 286 X10*3/uL (160-400); Red Blood Count 4.49 X10*6/uL (4.20-5.50); Red Cell Distribution Width 13.7 % (11.0-16.0); White Blood Count 5.2 X10*3/uL (4.8-10.8)
[2023-02-20 11:45] LABS: Alanine Aminotransferase 18 U/L (0-31); Albumin Level 3.7 g/dL (3.5-5.0); Alkaline Phosphatase 69 U/L (39-117); Anion Gap 7 (12-20); Aspartate Amino Transferase 30 U/L (5-31); Bilirubin Total 0.3 mg/dL (0.0-1.0); Blood Urea Nitrogen 12 mg/dL (9-16); Calcium 8.7 mg/dL (8.4-10.2); Carbon Dioxide 25 mmol/L (22-29); Chloride 111 mmol/L (96-108); Cholesterol 218 mg/dL (<200); Estimated Glomerular Filt Rate > 60; Glucose Fasting 91 mg/dL (60-99); HDL Cholesterol 86 mg/dL (>40); LDL Cholesterol Calculated 113 mg/dL (<100); Potassium 4.1 mmol/L (3.3-5.1); Sodium 139 mmol/L (135-145); Total Protein 6.4 g/dL (6.5-8.0); Triglycerides 96 mg/dL (<150)
[2023-02-20 11:48] LABS: TSH reflex Free T4 2.86 uIU/mL (0.32-4.0); Vitamin D 25-OH Total 45.4 ng/mL (>30)
--- NOTE | 2023-02-20 11:58 | PFT_ITS ---
INDICATION: Dyspnea. SPIROMETRY: FEV1 to FVC of 84% with an FEV1 of 2.1 L, which is 109% predicted and FVC of 2.49 L, which is 97% predicted. No significant response to bronchodilators noted. Maximum voluntary ventilation 79% predicted. LUNG VOLUMES: Total lung capacity 89% predicted. DIFFUSION CAPACITY: DLCO 126% predicted. COMPARISONS: None. INTERPRETATION: No obstructive nor restrictive ventilatory defects have been identified. No significant response to bronchodilators noted. There is a mild decreased in the maximum voluntary ventilation secondary to likely deconditioning. Lung volumes are within normal limits. Diffusion capacity demonstrates a DLCO that is significantly elevated, therefore exogenous carbon monoxide exposure needs to be considered. Otherwise clinical correlation warranted. If asthma is in the differential, methacholine challenge maybe helpful in assessing for hyperactive airways. Clinical correlation warranted. MD JEAN CARLOS Contreras/MODL / [id number]
[2023-02-20 12:00] LABS: Folate 2.8 ng/mL (> or = 4.0); Vitamin B12 638 pg/mL (200-900)
== END 2023-02-20 10:10 | disposition home or self-care (01) ==
LOC: HO.RESP 10:09
PROVIDERS: PCP Nurse Practitioner Family; Visit Provider Nurse Practitioner Family
DX: I10 Essential (primary) hypertension (principal); E53.8 Deficiency of other specified B group vitamins; E55.9 Vitamin D deficiency, unspecified; R06.02 Shortness of breath; Z12.31 Encounter for screening mammogram for malignant neoplasm of breast
CPT/HCPCS: 36415; 77063; 77067; 80053; 80061; 81003; 82306; 82607; 82746; 84443; 85025; 94010; 94727; 94729

== ENCOUNTER → 2023-02-20 11:58 | Outpatient (BNV) | payer OTHER, SELFPAY | PROVIDERS: PCP Nurse Practitioner Family; Visit Provider Hospitalist | DX: J45.909 Unspecified asthma, uncomplicated (principal) | CPT/HCPCS: 94060; 94727; 94729 ==

== ENCOUNTER → 2023-02-20 12:15 | Outpatient (BNV) | payer OTHER, SELFPAY | PROVIDERS: PCP Nurse Practitioner Family; Visit Provider Radiology Diagnostic Radiology | DX: Z12.31 Encounter for screening mammogram for malignant neoplasm of breast (principal) | CPT/HCPCS: 77063; 77067 ==

== ENCOUNTER 2023-02-20 13:10 | Outpatient (REF) | payer SELFPAY | END 2023-02-20 13:11 | disposition home or self-care (01) | LOC: HO.HAP 13:10 | PROVIDERS: Visit Provider Nurse Practitioner Family | DX: Z46.1 Encounter for fitting and adjustment of hearing aid (principal); H90.3 Sensorineural hearing loss, bilateral | CPT/HCPCS: V5267 ==

== ENCOUNTER 2023-02-23 09:16 | Outpatient (REF) | payer OTHER, SELFPAY ==
[2023-02-23 10:16] LABS: Appearance Urine Clear; Color Urine Yellow; Glucose Urine UA Negative (Negative); Leukocyte Esterase Urine Trace (Negative); Nitrite Urine Negative (Negative); Specific Gravity - Urine <= 1.005 (1.005-1.025); UMIC TRIGGER UACC YES; Urine Blood Negative (Negative); Urine Ketones Negative (Negative); Urine Protein Negative (Neg-Trace)
[2023-02-23 10:19] LABS: Bacteria Urine None Seen (None Seen); Hyaline Casts Urine 0-2 /LPF (0-2); RBC Urine 0-2 /HPF (0-2); Squamous Epithelial Cell Urine 0-2 /HPF (0-2); WBC Urine 0-5 /HPF (0-5)
== END 2023-02-23 09:17 | disposition home or self-care (01) ==
LOC: HO.LAB 09:16
PROVIDERS: PCP Nurse Practitioner Family; Visit Provider Nurse Practitioner Family
DX: E78.5 Hyperlipidemia, unspecified (principal); I10 Essential (primary) hypertension
CPT/HCPCS: 81001

== ENCOUNTER 2023-04-03 09:44 | Outpatient (AMB) | payer OTHER, SELFPAY ==
--- NOTE | 2023-04-03 09:45 | MHC.OFFVIS ---
Intake Vital Signs 04/03/23 09:46 Height 5 ft Weight 123 lb 7.342 oz BMI 24.1 BP 120/82 Blood Pressure Location Rt brachial Position Sitting Pulse 80 Pulse Source Doppler Pulse Oximetry (%) 98 Oxygen Delivery Method Room Air Intake Visit Reasons: Shortness of breath Allergies Penicillins [PENICILLINS] Allergy (Intermediate, Verified 04/03/23 09:50) HIVES carbamazepine [From Tegretol] Allergy (Mild, Verified 04/03/23 09:50) HIVES diflunisal [From Dolobid] Allergy (Mild, Verified 04/03/23 09:50) HIVES erythromycin base [From Edwin-Tab] Allergy (Mild, Verified 04/03/23 09:50) HIVES phenytoin [From Dilantin] Allergy (Mild, Verified 04/03/23 09:50) RASH,HIVES piroxicam [From Feldene] Allergy (Mild, Verified 04/03/23 09:50) HIVES sulfamethoxazole [From Bactrim] Allergy (Mild, Verified 04/03/23 09:50) HIVES trimethoprim [From Bactrim] Allergy (Mild, Verified 04/03/23 09:50) HIVES valproic acid [From Depakene] Allergy (Mild, Verified 04/03/23 09:50) HIVES Depakene Allergy (Unknown, Verified 04/03/23 09:50) Rash hydrochlorothiazide [HYDROCHLOROTHIAZIDE] Allergy (Unknown, Verified 04/03/23 09:50) rash lisinopril [LISINOPRIL] Allergy (Unknown, Verified 04/03/23 09:50) rash penicillin V Allergy (Unknown, Verified 04/03/23 09:50) Rash Sulfa (Sulfonamide Antibiotics) Allergy (Unknown, Verified 04/03/23 09:50) Rash codeine [Codeine] Adverse Reaction (Intermediate, Verified 04/03/23 09:50) NAUSEA & VOMITING rash ENVIRONMENTAL Allergy (Intermediate, Uncoded 01/15/23 09:47) ASTHMA,LOSES VOICE TAPE,PLASTIC Allergy (Intermediate, Uncoded 01/15/23 09:47) RASH surgical tape Allergy (Unknown, Uncoded 01/15/23 09:47) unknown HPI Shortness of breath HPI Details 68-year-old lady, nonsmoker, with underlying history of asthma for approximately 30 years, with worsening control of symptoms after COVID-19 in June of 2021 referred for pulmonary evaluation. Patient complains of intermittent sensation lungs burning , some wheezing dyspnea. She has been using Wixela, albuterol MDI/nebs, and Singulair with suboptimal control of her symptoms. She does have 3 cats and multiple environmental allergies. 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 [facility] Medical History (Updated 04/03/23 @ 11:58 by Maksim Bella MD) Osteoporosis CKD (chronic kidney disease) Hypothyroid Hyperlipemia Ataxic gait Seizures Asthma Depression Conversion disorder HTN (hypertension) Muscle weakness Hypothyroid Conversion disorder with attacks or seizures, acute episode, with psychological stressor Surgical History History of right knee surgery History of lobectomy of thyroid History of arthroscopy of right knee History of ankle surgery History of arthroscopy of left knee History of hysterectomy Family History Father CVD (cardiovascular disease) Stomach ulcer Cardiac arrest H/O heart bypass surgery Mother History of heart attack CHF (congestive heart failure) Lung cancer Diabetes mellitus High cholesterol HTN (hypertension) Hypothyroidism Sister Lung cancer Substance use disorder Brother Colitis Sister No problems noted. Sister Obstetric pulmonary blood clot embolism, antepartum Paternal Aunt Mental health disorder Substance use disorder Maternal Grandmother Mental health disorder Family/Other Substance use disorder Social History Household Members: Family Household Members Other:: brother, 2 cats Housing: House Alcohol intake: never Patient Tobacco Use Status: Never used Tobacco e-Cigarette/Vaping Use: Never Used Second Hand Smoke Exposure: No Current occupational status: disabled Cognitive needs: No Hearing needs: No Vision needs: No Review of Systems Const Denies daytime sleepiness, Denies excessive sweating, Denies fatigue, Denies fever(s), Denies lethargy, Denies malaise, Denies night sweats, Denies snoring and Denies weight loss Eyes Denies blurry vision and Denies itchy eyes ENT Denies nasal congestion, Denies post nasal drip, Denies sinus pain, Denies sinus pressure and Denies other ( Thrush) Card Denies chest pain, Denies pedal edema, Denies dyspnea, Reports dyspnea on exertion, Denies orthopnea and Denies paroxysmal nocturnal dyspnea Resp Denies cough, Denies hemoptysis, Denies excessive phlegm production, Denies dyspnea, Reports dyspnea on exertion, Denies snoring and Reports wheezing GI Denies abdominal pain and Denies heartburn Musc Denies myalgias, Denies arthralgias and Denies joint swelling Skin/Breast Denies rash Neuro Denies memory loss and Denies seizure-like activity Psych Denies abnormal sleep pattern, Denies anxiety and Denies memory loss Endo Denies excessive sweating, Denies fatigue and Denies heat intolerance Sherman/Lymph Denies easy bruising Aller/Immun Denies itchy eyes, Denies seasonal rhinorrhea and Reports wheezing Physical Exam Vital Signs: Last Vital Signs Pulse 80 04/03/23 09:46 BP 120/82 04/03/23 09:46 Pulse Ox 98 04/03/23 09:46 Oxygen Delivery Method Room Air 04/03/23 09:46 BMI result Body Mass Index 24.1 Const General: no acute distress and alert Nutritional Appearance: not obese Orientation/consciousness: Other orientation findings ( oriented) HEENT Head: Yes atraumatic Eyes General: appearance normal, both eyes and all related structures Sclerae: sclerae normal EOM: EOMs intact bilaterally Neck Neck: Yes supple Lymphatic: no lymphadenopathy noted Resp Effort & Inspection: normal respiratory effort and no use of accessory muscles Auscultation: clear to auscultation bilaterally Cardio Rate: regular rate Rhythm: regular rhythm Heart sounds: no gallops, no murmurs and no rubs Skin General skin exam: other ( warm) Extrem General: No clubbing, No cyanosis and No edema Assessment & Plan Assessment & Plan (1) Environmental allergies: Code(s): Z91.09 - Other allergy status, other than to drugs and biological substances Plan: will obtain IgE level, CBC with differential, and RAST panel for further evaluation. (2) SOB (shortness of breath): Code(s): R06.02 - Shortness of breath Plan: (3) Asthma: Code(s): J45.909 - Unspecified asthma, uncomplicated Plan: Unclear severity. PFT is pending. Will review as available. Suboptimally controlled on Symbicort, switch to BrezTri. continue albuterol MDI / nebs and Singulair. Orders: Orders Complete Blood Count Auto Diff Today Z91.09 - Other allergy status, other than to drugs and biological substances Rast Allergen Today Z91.09 - Other allergy status, other than to drugs and biological substances Medications: New [id number] 160-9-4.8 mcg/actuation (Breztri Aerosphere) 2 inhalations inhalation BID 1 ea 6RF 30 days Z91.09 - Other allergy status, other than to drugs and biological substances Discontinued fluticasone propion-salmeterol 250-50 mcg/dose (Wixela Inhub) Discontinued Reason: Doctor's Order 1 ea PO BID 180 ea 1RF Coding Level of Care Code New Pt Level 4 (35146) Diagnoses Environmental allergies Z. SOB (shortness of breath) R06.02 Asthma J45.909
[2023-04-03 09:46] VITALS: BP 120/82; PULSE 80; O2SAT 98; BMI 24.1
== END 2023-04-03 10:10 | disposition home or self-care (01) ==
PROVIDERS: PCP Nurse Practitioner Family; Referring Provider Nurse Practitioner Family; Visit Provider Internal Medicine Pulmonary Disease
DX: Z91.09 Other allergy status, other than to drugs and biological substances (principal); R06.02 Shortness of breath; J45.909 Unspecified asthma, uncomplicated
CPT/HCPCS: 99204

== ENCOUNTER 2023-04-03 09:44 | Outpatient (REF) | payer OTHER, SELFPAY ==
[2023-04-03 10:29] LABS: MANUAL DIFF FLAG NO
[2023-04-03 10:41] LABS: Basophils Absolute Auto 0.1 X10*3/uL (0.0-0.2); Basophils Percent Auto 1.3 % (0-2); Eosinophils Absolute Auto 0.4 X10*3/uL (0.0-0.4); Eosinophils Percent Auto 6.1 % (0-4); Hematocrit 44.3 % (37.0-47.0); Hemoglobin 14.1 g/dl (12.0-16.0); Imm Gran Abs Auto 0.02 X10*3/uL (0.00-0.03); Imm Gran Pct Auto 0.3 % (0.0-0.4); Lymphocytes Absolute Auto 1.2 X10*3/uL (1.2-4.9); Lymphocytes Percent Auto 19.4 % (20-40); Mean Corpuscular HGB Conc 31.8 g/dl (31.0-35.0); Mean Corpuscular Hemoglobin 29.9 pg (27.0-33.0); Mean Corpuscular Volume 93.9 fL (80.0-98.0); Mean Platelet Volume 10.7 fL (9.4-12.3); Monocytes Absolute Auto 0.4 X10*3/uL (0.1-1.2); Monocytes Percent Auto 7.1 % (2-11); Neutrophils Absolute Auto 3.9 x10*3/uL (2.0-8.3); Neutrophils Percent Auto 65.8 % (45-73); Platelet Count 261 X10*3/uL (160-400); Red Blood Count 4.72 X10*6/uL (4.20-5.50); Red Cell Distribution Width 13.8 % (11.0-16.0); White Blood Count 5.9 X10*3/uL (4.8-10.8)
== END 2023-04-03 09:45 | disposition home or self-care (01) ==
LOC: HO.LAB 09:44
PROVIDERS: PCP Nurse Practitioner Family; Referring Provider Nurse Practitioner Family; Visit Provider Internal Medicine Pulmonary Disease
DX: J45.909 Unspecified asthma, uncomplicated (principal); R06.02 Shortness of breath; Z91.09 Other allergy status, other than to drugs and biological substances; Z86.16 Personal history of COVID-19
CPT/HCPCS: 36415; 82785; 85025; 86003; 99202

== ENCOUNTER 2023-04-10 12:00 | Emergency (ER) | payer OTHER, SELFPAY ==
--- NOTE | ~2023-04-10 | XR_ITS ---
EXAMINATION: XR CHEST 2 VIEW CLINICAL INFORMATION: Chest pain COMPARISON: 01/15/2023 TECHNIQUE: PA and lateral views of the chest obtained. FINDINGS: The lungs are clear. There are no pleural effusions. The cardiomediastinal silhouette is normal. Chronic deformity, either posttraumatic or postsurgical, of the right fourth and fifth posterior ribs is unchanged. XR/XR chest 2V IMPRESSION: No acute cardiopulmonary disease.
--- NOTE | ~2023-04-10 | XR_ITS ---
EXAMINATION: XR SHOULDER, RIGHT CLINICAL INFORMATION: Shoulder pain status post fall COMPARISON: None available. TECHNIQUE: AP external rotation, Grashey, scapular Y views of the right shoulder. FINDINGS: The bones and soft tissues are normal. No fracture. Glenohumeral and acromioclavicular alignment is anatomic with normal joint space. No abnormal soft tissue calcifications. XR/XR shoulder RT min 2V IMPRESSION: No acute fracture or subluxation of the right shoulder.
--- NOTE | ~2023-04-10 | XR_ITS ---
EXAMINATION: XR RIBS, LEFT CLINICAL INFORMATION: Fall, left rib pain COMPARISON: None available. TECHNIQUE: 3 views of the left ribs were obtained. FINDINGS: Lungs are clear. No consolidation, pneumothorax, or pleural effusion. The cardiomediastinal silhouette and pulmonary vasculature are normal. Metallic BB is marking the area of pain. Osseous structures are unremarkable. Ribs are intact. No fractures are identified. XR/XR ribs LT min 3V w CXR1V IMPRESSION: Unremarkable examination.
--- NOTE | ~2023-04-10 | XR_ITS ---
EXAMINATION: XR SACRUM AND COCCYX CLINICAL INFORMATION: Pain status post fall COMPARISON: None available. TECHNIQUE: Frontal and lateral views of the sacrum and coccyx were acquired. FINDINGS: Generalized demineralization is present, limiting evaluation, but no acute fracture is detected. The sacroiliac joints image normally. XR/XR sacrum coccyx min 2V IMPRESSION: No acute sacrococcygeal fracture.
--- NOTE | ~2023-04-10 | XR_ITS ---
EXAMINATION: XR LUMBOSACRAL SPINE CLINICAL INFORMATION: Fall, back pain COMPARISON: 02/09/2022 TECHNIQUE: Three views of the lumbosacral spine. FINDINGS: There is a mild dextroscoliosis of the lumbar spine. Normal vertebral body height. No acute fractures. There is posterior facet joint arthropathy at L4/L5 causing a grade 1 anterolisthesis which is stable compared to the prior exam. Degenerative disc disease is seen at L1/L2 and L4/L5 XR/XR lumbar spine 2-3V IMPRESSION: No acute process.
--- NOTE | ~2023-04-10 | CT_ITS ---
EXAMINATION: CT brain and CT cervical spine without contrast. CLINICAL INDICATION: Fall, syncope. COMPARISON: None. TECHNIQUE: 5 mm thin axial and reformatted 2 mm thin sagittal and coronal images of brain were obtained without contrast. Subsequently axial 3 mm thin and reformatted 2 minutes thin sagittal and coronal images of cervical spine were obtained. DLP 818. This CT examination was performed using dose optimization technique as appropriate, variously including the following: Automated exposure control Adjustment of MA and/or KV according to patient size(this includes techniques or standardized protocols for targeted exams where dose is matched to indication/reason for exam; extremities or head. Use of iterative reconstruction techniques. FINDINGS: Brain: There is no acute intra-axial, extra-axial bleed, masses or midline shift. There is no acute infarction in evolution. There is no edema. The nguyễn to white matter differentiation is maintained normal. The lateral ventricles are symmetrical in size and configuration without enlargement. Bone windows reveal no calvarial abnormality. There is no scalp soft tissue abnormality. Bilateral paranasal sinuses and mastoid air cells are well-aerated. Cervical spine: There is normal cervical lordosis. The vertebral heights and alignment is normal. There is mild loss of C5-C6 disc height with mild ventral and posterior spondylosis. The craniovertebral junction and the C1-C2 alignment is normal. There is no visible acute fracture, dislocation or subluxation seen. The prevertebral and the paravertebral soft tissues are normal. The airway is widely patent. The lung apices are clear. The left thyroid lobe has been surgically removed. The right thyroid lobe is unremarkable. Bilateral submandibular and parotid glands are symmetrical and normal. CT/CT cervical spine wo IV con IMPRESSION: No acute intracranial process seen. Degenerative disc changes C5-C6 disc level with mild ventral and posterior spondylosis. There is no visible acute fracture, dislocation or subluxation seen.
[2023-04-10 12:12] VITALS: BP 152/81; BP 165/77; PULSE 72; PULSE 75; RESP 18; TEMP 36.4; O2SAT 99; BMI 25.2
--- NOTE | 2023-04-10 12:47 | ECG_ITS ---
Test Reason : ? SYNCOPE Blood Pressure : / mmHG Vent. Rate : 062 BPM Atrial Rate : 062 BPM P-R Int : 168 ms QRS Dur : 084 ms QT Int : 408 ms P-R-T Axes : 070 037 054 degrees QTc Int : 414 ms Normal sinus rhythm Possible Left atrial enlargement Borderline ECG When compared with ECG of 05-APR-2022 17:50, No significant change was found Referred By: Sue Perry Electronically Signed By:YUSEF VEE MD
--- NOTE | 2023-04-10 14:04 | PC.NURSE ---
this nurse, in addition to 3 ED techs attempted to obtain labs- 20G IV in place in left forearm. contacted phlebotomy [id number] requested services to obtain labs
[2023-04-10 14:19] LABS: MANUAL DIFF FLAG NO
[2023-04-10 14:30] LABS: Basophils Absolute Auto 0.1 X10*3/uL (0.0-0.2); Basophils Percent Auto 0.9 % (0-2); Eosinophils Absolute Auto 0.4 X10*3/uL (0.0-0.4); Eosinophils Percent Auto 6.3 % (0-4); Hematocrit 39.9 % (37.0-47.0); Hemoglobin 12.8 g/dl (12.0-16.0); Imm Gran Abs Auto 0.02 X10*3/uL (0.00-0.03); Imm Gran Pct Auto 0.3 % (0.0-0.4); Lymphocytes Absolute Auto 1.3 X10*3/uL (1.2-4.9); Lymphocytes Percent Auto 19.3 % (20-40); Mean Corpuscular HGB Conc 32.1 g/dl (31.0-35.0); Mean Corpuscular Volume 93.4 fL (80.0-98.0); Mean Platelet Volume 9.9 fL (9.4-12.3); Monocytes Absolute Auto 0.6 X10*3/uL (0.1-1.2); Monocytes Percent Auto 8.2 % (2-11); Neutrophils Absolute Auto 4.3 x10*3/uL (2.0-8.3); Platelet Count 254 X10*3/uL (160-400); Red Blood Count 4.27 X10*6/uL (4.20-5.50); Red Cell Distribution Width 13.9 % (11.0-16.0); White Blood Count 6.7 X10*3/uL (4.8-10.8)
[2023-04-10 14:32] LABS: Lactic Acid 0.5 mmol/L (0.5-2.0)
[2023-04-10 14:39] LABS: Alanine Aminotransferase 15 U/L (0-31); Albumin Level 3.6 g/dL (3.5-5.0); Alkaline Phosphatase 73 U/L (39-117); Anion Gap 10 (12-20); Aspartate Amino Transferase 28 U/L (5-31); Bilirubin Direct < 0.2 mg/dL (0.0-0.5); Bilirubin Total 0.2 mg/dL (0.0-1.0); Blood Urea Nitrogen 16 mg/dL (9-16); Calcium 9.4 mg/dL (8.4-10.2); Carbon Dioxide 22 mmol/L (22-29); Chloride 112 mmol/L (96-108); Creatinine Clr Calc Pharmacy 45.7; Estimated Glomerular Filt Rate > 60; Ethanol < 10 mg/dL; Glucose Random 103 mg/dL (60-115); Magnesium 2.2 mg/dL (1.6-2.6); Potassium 4.4 mmol/L (3.3-5.1); Sodium 140 mmol/L (135-145); Total Protein 6.4 g/dL (6.5-8.0)
[2023-04-10 14:42] VITALS: BP 161/73; PULSE 63; RESP 19; TEMP 36.6; O2SAT 100
[2023-04-10 14:45] LABS: Troponin-I High Sensitivity < 2.7 ng/L (<3.5-17.0)
--- NOTE | 2023-04-10 16:25 | ED.FALL ---
HPI - Fall General Chief Complaint: Fall Stated Complaint: SLIP/FALL ON LEAVES,?HIT HEAD,NO MEMORY OF FALL Time Seen by Provider: 04/10/23 12:17 Source: patient and RN notes reviewed Mode of arrival: ambulatory Limitations: no limitations History of Present Illness HPI Narrative: This is a 68-year-old female, with a past medical history of asthma, ataxic gait, chronic kidney disease, conversion disorder, depression, hypertension, hyperlipidemia, hypothyroidism, muscle weakness, osteoporosis and seizures, who presents to the emergency department for evaluation after a fall today. Patient states that she was attempting to carry heavy shares onto her porch when she fell. This fall was observed by a bystander who called 911. Patient states that she does not remember falling but remembers waking up and seeing a stranger in her face asking if she was okay. Patient reports that she was feeling well prior to the fall. Denies any chest pain or shortness of breath. She states that she is having some head pain, left rib pain and back pain status post the fall. Denies any visual changes, dizziness or lightheadedness. She states that she has a history of falls and has ?unsteadiness? for her entire life. She has been worked up by Physical therapy. No other complaints or concerns at this time. MD complaint: fall Onset (ago): minute(s) Fall from: standing Fall witnessed: yes, by bystander Place fall occurred: home Loss of consciousness: yes Prolonged down time: minute(s) Symptoms prior to fall: none Context: tripped/slipped and other (Patient does not room call following however reports that her deck was slippery with wet leaves) Location of injury: head, chest and back Quality: aching Associated symptoms (after fall): headache Related Data Home Medications Medication Instructions Recorded Confirmed aspirin 81 mg tablet,delayed 81 mg PO DAILY 07/05/20 01/15/23 release (Adult Low Dose Aspirin) Previous Rx's Medication Instructions Recorded polyethylene glycol 3350 17 17 g PO DAILY PRN constipation 90 12/26/20 gram/dose oral powder (Miralax) days #510 grams betamethasone dipropionate 0.05 % 1 appl topical DAILY skin 09/01/21 topical cream irritation 14 days #45 grams albuterol sulfate 2.5 mg/3 mL 2.5 mg (3 mL) inhalation QID PRN 02/09/22 (0.083 %) solution for nebulization shortness of breath or wheezing 90 days #180 mL albuterol sulfate 90 mcg/actuation 2 puff inhalation Q6H PRN 04/25/22 aerosol inhaler (ProAir HFA) shortness of breath or wheezing #6.7 grams sumatriptan succinate 100 mg tablet See Rx Instructions PO .COMPLEX 30 06/09/22 days #10 tabs ibuprofen 600 mg tablet 600 mg PO TID PRN headache 30 days 08/08/22 #60 tabs cyproheptadine 4 mg tablet 4 mg PO BEDTIME 30 days #30 tabs 08/29/22 fluticasone propionate 50 1 spray intranasal DAILY 90 days 09/12/22 mcg/actuation nasal #48 grams spray,suspension montelukast 10 mg tablet 10 mg PO DAILY 90 days #90 tabs 10/02/22 topiramate 100 mg tablet 100 mg PO BID 90 days #180 tabs 10/06/22 fluoxetine 40 mg capsule 40 mg PO DAILY 90 days #90 caps 10/18/22 riboflavin (vitamin B2) 100 mg 100 mg PO DAILY 90 days #90 tabs 10/23/22 tablet [employer] unit #1 ea 10/30/22 cholecalciferol (vitamin D3) 50 50 mcg PO DAILY 90 days #90 caps 11/06/22 mcg (2,000 unit) capsule fludrocortisone 0.1 mg tablet 0.1 mg PO DAILY for blood pressure 11/06/22 90 days #90 tabs risedronate 35 mg tablet 35 mg PO QWEEK #4 tabs 11/07/22 clonazepam 0.5 mg tablet 0.5 mg PO BID PRN 12/11/22 anxiety/agitation 60 days #120 tabs levothyroxine 25 mcg tablet 25 mcg PO DAILY #90 tabs 01/02/23 meclizine 25 mg tablet 25 mg PO DAILY PRN dizziness 90 02/17/23 days #90 tabs folic acid 0.8 mg capsule 0.8 mg PO DAILY #90 caps 02/20/23 magnesium oxide 400 mg (241.3 mg 400 mg PO BEDTIME diarrhea 90 days 03/09/23 magnesium) tablet #90 tabs atorvastatin 80 mg tablet 80 mg PO DAILY 90 days #90 tabs 03/29/23 budesonide 160 mcg-glycopyr 9 2 inh inhalation BID 30 days #1 ea 04/03/23 mcg-formot 4.8 mcg/actuation HFA inhaler (Breztri Aerosphere) galcanezumab-gnlm 120 mg/mL 120 mg subcut ONCE 30 days #1 mL 04/08/23 subcutaneous pen injector (Emgality Pen) Allergies Allergy/AdvReac Type Severity Reaction Status Date / Time Penicillins [PENICILLINS] Allergy Intermediate HIVES Verified 04/10/23 12:08 carbamazepine [From Tegretol] Allergy Mild HIVES Verified 04/10/23 12:08 diflunisal [From Dolobid] Allergy Mild HIVES Verified 04/10/23 12:08 erythromycin base Allergy Mild HIVES Verified 04/10/23 12:08 [From Edwin-Tab] phenytoin [From Dilantin] Allergy Mild RASH,HIVES Verified 04/10/23 12:08 piroxicam [From Feldene] Allergy Mild HIVES Verified 04/10/23 12:08 sulfamethoxazole Allergy Mild HIVES Verified 04/10/23 12:08 [From Bactrim] trimethoprim [From Bactrim] Allergy Mild HIVES Verified 04/10/23 12:08 valproic acid [From Depakene] Allergy Mild HIVES Verified 04/10/23 12:08 Depakene Allergy Unknown Rash Verified 04/10/23 12:08 hydrochlorothiazide Allergy Unknown rash Verified 04/10/23 12:08 [HYDROCHLOROTHIAZIDE] lisinopril [LISINOPRIL] Allergy Unknown rash Verified 04/10/23 12:08 penicillin V Allergy Unknown Rash Verified 04/10/23 12:08 Sulfa (Sulfonamide Allergy Unknown Rash Verified 04/10/23 12:08 Antibiotics) codeine [Codeine] AdvReac Intermediate NAUSEA & Verified 04/10/23 12:08 VOMITING rash ENVIRONMENTAL Allergy Intermediate ASTHMA,LOSES Uncoded 01/15/23 09:47 VOICE TAPE,PLASTIC Allergy Intermediate RASH Uncoded 01/15/23 09:47 surgical tape Allergy Unknown unknown Uncoded 01/15/23 09:47 Review of Systems Review of Systems: Yes all other systems are reviewed and are negative Constitutional: Constitutional: Reports as per [facility] Past Medical History Attestation statement: The following information was validated with the patient. Medical History (Updated 04/10/23 @ 17:04 by REBA Pan) Osteoporosis CKD (chronic kidney disease) Hypothyroid Hyperlipemia Ataxic gait Seizures Asthma Depression Conversion disorder HTN (hypertension) Muscle weakness Hypothyroid Conversion disorder with attacks or seizures, acute episode, with psychological stressor Surgical History (Reviewed 12/11/22 @ 10:54 by Chasity Macias [facility] [address]) History of right knee surgery History of lobectomy of thyroid History of arthroscopy of right knee History of ankle surgery History of arthroscopy of left knee History of hysterectomy Family History Family History Father CVD (cardiovascular disease) Stomach ulcer Cardiac arrest H/O heart bypass surgery Mother History of heart attack CHF (congestive heart failure) Lung cancer Diabetes mellitus High cholesterol HTN (hypertension) Hypothyroidism Sister Lung cancer Substance use disorder Brother Colitis Sister No problems noted. Sister Obstetric pulmonary blood clot embolism, antepartum Paternal Aunt Mental health disorder Substance use disorder Maternal Grandmother Mental health disorder Family/Other Substance use disorder Social History Social History Household Members: Family Household Members Other:: brother, 2 cats Housing: House Alcohol intake: never Patient Tobacco Use Status: Never used Tobacco e-Cigarette/Vaping Use: Never Used Second Hand Smoke Exposure: No Advance Directives: Yes Advance Directives Information Provided: Yes Advance Directives on File: No Current occupational status: disabled Cognitive needs: No Hearing needs: No Vision needs: No Physical Exam Vital Signs: Vital Signs: Last Vital Signs Temp 97.8 F 04/10/23 14:42 Pulse 63 04/10/23 14:42 Resp 19 04/10/23 14:42 BP 161/73 H 04/10/23 14:42 Pulse Ox 100 04/10/23 14:42 O2 Del Method Room Air 04/10/23 14:42 BMI result Body Mass Index 25.2 Const: General: cooperative, comfortable and no acute distress Orientation/consciousness: patient oriented x3 Limitations: no limitations HEENT: Other: Tenderness to palpation along the occiput, no bony step-off or deformity noted Head: Yes normal to inspection, Yes normocephalic, Yes atraumatic, No Solis's sign, No palpable skull fracture and No periorbital ecchymosis Ears: hearing grossly normal bilaterally and TM's normal bilaterally (No hemotympanum) General nose exam: Normal external nose present Face and sinus: Yes normal facial exam Mouth: Normal oral and palatal mucosa present, oropharynx normal and moist mucous membranes Throat: Yes posterior oropharynx normal Eyes: General: appearance normal, both eyes and all related structures Eyelids: Yes eyelids normal Conjunctivae: conjunctivae normal Sclerae: sclerae normal Pupils: Equal, round and reactive pupils present EOM: EOMs intact bilaterally Neck: Other: No midline spine tenderness Neck: Yes normal visual inspection, Yes full ROM and Yes no lymphadenopathy Lymphatic: no lymphadenopathy noted Chest: Other: Tenderness to palpation along the left anterior ribs, no bony step-off or deformity. Chest palpation & inspection: normal inspection of the chest Resp: Effort & Inspection: normal respiratory effort and able to speak in complete sentences Auscultation: clear to auscultation bilaterally, no crackles, no rales, no rhonchi and no wheezes Cardio: Rate: regular rate Rhythm: regular rhythm Heart sounds: S1 normal heart sound present and S2 normal heart sound present GI: Inspection: Yes normal to inspection Skin: General skin exam: no rashes or lesions noted Trauma: no lacerations or abrasions Wounds: no wounds Neuro: General: patient oriented x3 and moves all extremities Cranial nerves: Yes Equal, round and reactive pupils present Cognition (Neuro): normal cognition Gait exam (Neuro): Normal gait present Motor exam (neuro): 5/5 motor strength present throughout Extrem: Other: Tenderness palpation along the right shoulder, no bony step-off or deformity, full range of motion. General: Yes normal to inspection Right upper extremity: normal to inspection Left upper extremity: normal to inspection Right lower extremity: normal to inspection Left lower extremity: normal to inspection Course Reevaluation(s) Reevaluation #1: CT head, CT neck, chest x-ray, right shoulder, lumbar spine, sacral/coccyx, left rib x-rays were obtained without any acute findings. Cervical collar was removed. I discussed with patient that we can have PT follow her, she respectfully declines. She is able to make her own medical decisions and appears to be in the right state of mind to make these decisions for her medical treatment. Patient has been ambulating to and from the bathroom without difficulty or gait instability. Given negative workup today, patient is stable for discharge. Advised to return if any new or worsening symptoms occur. Patient understands and agrees with plan. Patient stable for discharge Time: 17:51 Medical Decision Making Medical Decision Making MDM Narrative: 68-year-old female, with a past medical history of asthma, ataxic gait, chronic kidney disease, conversion disorder, depression, hypertension, hyperlipidemia, hypothyroidism, muscle weakness, osteoporosis and seizures, who presents to the emergency department for evaluation after a fall today. Patient reports that she does not recall the fall however states that her back is covered and wet leaves. This fall was witnessed by a bystander. On arrival, patient placed in cervical collar via EMS. Patient mildly hypertensive at 165/77, all other vital signs within normal limits. Given patient does not recall the events leading up to her fall, will obtain labs, EKG, chest x-ray, CT head CT neck, right shoulder, lumbar spine and sacral x-rays. Left rib x-ray was also ordered given tenderness to palpation on examination. Differential diagnoses include closed head injury, ICH, rib fracture, contusion, cervical spine fracture, arrhythmia, ACS Differential Diagnosis Differential Diagnoses: The differential diagnosis associated with the presentation includes See above Admission/Observation Consideration of admission/observation: Escalation of care including admission/observation considered Escalation of care including admission was considered given syncopal episode, however patient had a negative workup today Lab Data MDM Lab Attestation statement: I reviewed the patient's lab results. No leukocytosis, stable H&H, chemistry within normal limits. Negative troponin. 04/10/23 14:14 04/10/23 14:14 Labs: Lab Results 04/10/23 Range/Units 14:14 WBC 6.7 (4.8-10.8) X10*3/uL RBC 4.27 (4.20-5.50) X10*6/uL Hgb 12.8 (12.0-16.0) g/dl Hct 39.9 (37.0-47.0) % MCV 93.4 (80.0-98.0) fL MCH 30.0 (27.0-33.0) pg MCHC 32.1 (31.0-35.0) g/dl RDW 13.9 (11.0-16.0) % Plt Count 254 (160-400) X10*3/uL MPV 9.9 (9.4-12.3) fL Immature Gran % (Auto) 0.3 (0.0-0.4) % Neut % (Auto) 65.0 (45-73) % Lymph % (Auto) 19.3 L (20-40) % Dickinson % (Auto) 8.2 (2-11) % Eos % (Auto) 6.3 H (0-4) % Baso % (Auto) 0.9 (0-2) % Lymph # (Auto) 1.3 (1.2-4.9) X10*3/uL Dickinson # (Auto) 0.6 (0.1-1.2) X10*3/uL Eos # (Auto) 0.4 (0.0-0.4) X10*3/uL Baso # (Auto) 0.1 (0.0-0.2) X10*3/uL Abs Immat Gran (auto) 0.02 (0.00-0.03) X10*3/uL Absolute Neuts (auto) 4.3 (2.0-8.3) x10*3/uL Absolute Nucleated RBC 0.000 (0.0-0.012) X10*3/uL Nucleated RBC % (auto) 0.0 (0.0-0.2) /100WBC Sodium 140 (135-145) mmol/L Potassium 4.4 (3.3-5.1) mmol/L Chloride 112 H (96-108) mmol/L Carbon Dioxide 22 (22-29) mmol/L Anion Gap 10 L (12-20) BUN 16 (9-16) mg/dL Creatinine 0.89 (0.5-1.4) mg/dL Estim Creat Clear Calc 45.7 Estimated GFR > 60 Random Glucose 103 (60-115) mg/dL Lactic Acid 0.5 (0.5-2.0) mmol/L Calcium 9.4 D (8.4-10.2) mg/dL Magnesium 2.2 (1.6-2.6) mg/dL Total Bilirubin 0.2 (0.0-1.0) mg/dL Direct Bilirubin < 0.2 (0.0-0.5) mg/dL AST 28 (5-31) U/L ALT 15 (0-31) U/L Alkaline Phosphatase 73 (39-117) U/L Troponin I High Sens < 2.7 (<3.5-17.0) ng/L Total Protein 6.4 L (6.5-8.0) g/dL Albumin 3.6 (3.5-5.0) g/dL Ethyl Alcohol < 10 mg/dL Independent Interpretation I performed an independent interpretation of an: EKG Interpretation: EKG, normal sinus rhythm at a ventricular rate of 62 beats per minute, VT interval 168, no ST elevation or depression. Radiology Impression Discussion of test interpretation with radiology: I have reviewed the radiologist's reading. Radiologist Impression: EXAMINATION: XR SHOULDER, RIGHT CLINICAL INFORMATION: Shoulder pain status post fall COMPARISON: None available. TECHNIQUE: AP external rotation, Grashey, scapular Y views of the right shoulder. FINDINGS: The bones and soft tissues are normal. No fracture. Glenohumeral and acromioclavicular alignment is anatomic with normal joint space. No abnormal soft tissue calcifications. XR/XR shoulder RT min 2V IMPRESSION: No acute fracture or subluxation of the right shoulder. Dictated By: Carlos Young MD EXAMINATION: XR SACRUM AND COCCYX CLINICAL INFORMATION: Pain status post fall COMPARISON: None available. TECHNIQUE: Frontal and lateral views of the sacrum and coccyx were acquired. FINDINGS: Generalized demineralization is present, limiting evaluation, but no acute fracture is detected. The sacroiliac joints image normally. XR/XR sacrum coccyx min 2V IMPRESSION: No acute sacrococcygeal fracture. Dictated By: Carlos Young MD EXAMINATION: XR RIBS, LEFT CLINICAL INFORMATION: Fall, left rib pain COMPARISON: None available. TECHNIQUE: 3 views of the left ribs were obtained. FINDINGS: Lungs are clear. No consolidation, pneumothorax, or pleural effusion. The cardiomediastinal silhouette and pulmonary vasculature are normal. Metallic BB is marking the area of pain. Osseous structures are unremarkable. Ribs are intact. No fractures are identified. XR/XR ribs LT min 3V w CXR1V IMPRESSION: Unremarkable examination. Dictated By: Pato Rivera MD EXAMINATION: XR LUMBOSACRAL SPINE CLINICAL INFORMATION: Fall, back pain COMPARISON: 02/09/2022 TECHNIQUE: Three views of the lumbosacral spine. FINDINGS: There is a mild dextroscoliosis of the lumbar spine. Normal vertebral body height. No acute fractures. There is posterior facet joint arthropathy at L4/L5 causing a grade 1 anterolisthesis which is stable compared to the prior exam. Degenerative disc disease is seen at L1/L2 and L4/L5 XR/XR lumbar spine 2-3V IMPRESSION: No acute process. Dictated By: Pato Rivera MD EXAMINATION: XR CHEST 2 VIEW CLINICAL INFORMATION: Chest pain COMPARISON: 01/15/2023 TECHNIQUE: PA and lateral views of the chest obtained. FINDINGS: The lungs are clear. There are no pleural effusions. The cardiomediastinal silhouette is normal. Chronic deformity, either posttraumatic or postsurgical, of the right fourth and fifth posterior ribs is unchanged. XR/XR chest 2V IMPRESSION: No acute cardiopulmonary disease. Dictated By: Carlos Young MD EXAMINATION: CT brain and CT cervical spine without contrast. CLINICAL INDICATION: Fall, syncope. COMPARISON: None. TECHNIQUE: 5 mm thin axial and reformatted 2 mm thin sagittal and coronal images of brain were obtained without contrast. Subsequently axial 3 mm thin and reformatted 2 minutes thin sagittal and coronal images of cervical spine were obtained. DLP [id number]. This CT examination was performed using dose optimization technique as appropriate, variously including the following: Automated exposure control Adjustment of MA and/or KV according to patient size(this includes techniques or standardized protocols for targeted exams where dose is matched to indication/reason for exam; extremities or head. Use of iterative reconstruction techniques. FINDINGS: Brain: There is no acute intra-axial, extra-axial bleed, masses or midline shift. There is no acute infarction in evolution. There is no edema. The nguyễn to white matter differentiation is maintained normal. The lateral ventricles are symmetrical in size and configuration without enlargement. Bone windows reveal no calvarial abnormality. There is no scalp soft tissue abnormality. Bilateral paranasal sinuses and mastoid air cells are well-aerated. Cervical spine: There is normal cervical lordosis. The vertebral heights and alignment is normal. There is mild loss of C5-C6 disc height with mild ventral and posterior spondylosis. The craniovertebral junction and the C1-C2 alignment is normal. There is no visible acute fracture, dislocation or subluxation seen. The prevertebral and the paravertebral soft tissues are normal. The airway is widely patent. The lung apices are clear. The left thyroid lobe has been surgically removed. The right thyroid lobe is unremarkable. Bilateral submandibular and parotid glands are symmetrical and normal. CT/CT cervical spine wo IV con IMPRESSION: No acute intracranial process seen. Degenerative disc changes C5-C6 disc level with mild ventral and posterior spondylosis. There is no visible acute fracture, dislocation or subluxation seen. Dictated By: Jayden Stroud MD Independent Historian Clinical information obtained from an independent historian. History obtained from or confirmed by: EMS Discharge Plan Discharge Clinical Impression: Fall, Closed head injury, Contusion Patient Disposition: Home, Self-Care Instructions: Fall Prevention for Older Adults (ED), Head Injury (ED) Additional Instructions: You presented to the emergency department after a fall. We obtained a head CT, neck CT, chest x-ray, right shoulder x-ray, lumbar spine x-ray, sacrum and coccyx, and left rib x-ray which did not show any new injury. Your labs were reassuring. Your EKG was normal. Please follow-up with your primary care physician regarding this visit. Please rest, ice your head, and take Tylenol as needed for pain. If any new or worsening symptoms occur including but not limited to dizziness, chest pain, shortness of breath, please return for re-evaluation. Prescriptions: No Action polyethylene glycol 3350 [Miralax] 17 gram/dose powder 17 g PO DAILY PRN (Reason: constipation) 90 Days Qty: 510 0RF albuterol sulfate [ProAir HFA] 90 mcg/actuation HFA aerosol inhaler 2 puff inhalation Q6H PRN (Reason: shortness of breath or wheezing) Qty: 6.7 0RF sumatriptan succinate 100 mg tablet See Rx Instructions PO .COMPLEX 30 Days Qty: 10 1RF Rx Instructions: take 1 tab at onset of headache; if no relief, may repeat 1 tab after at least 2 hrs; max = 2 tabs/24 hrs PO cyproheptadine 4 mg tablet 4 mg PO BEDTIME 30 Days Qty: 30 1RF montelukast 10 mg tablet 10 mg PO DAILY 90 Days Qty: 90 2RF topiramate 100 mg tablet 100 mg PO BID 90 Days Qty: 180 1RF fluoxetine 40 mg capsule 40 mg PO DAILY 90 Days Qty: 90 1RF riboflavin (vitamin B2) 100 mg tablet 100 mg PO DAILY 90 Days Qty: 90 1RF (DME) [employer] unit See Rx Instructions .Route .MEDSUPPLY Qty: 1 0RF Rx Instructions: As directed fludrocortisone 0.1 mg tablet 0.1 mg PO DAILY 90 Days Qty: 90 1RF cholecalciferol (vitamin D3) 50 mcg (2,000 unit) capsule 50 mcg PO DAILY 90 Days Qty: 90 1RF risedronate 35 mg tablet 35 mg PO QWEEK Qty: 4 5RF levothyroxine 25 mcg tablet 25 mcg PO DAILY Qty: 90 1RF meclizine 25 mg tablet 25 mg PO DAILY PRN (Reason: dizziness) 90 Days Qty: 90 0RF folic acid 0.8 mg capsule 0.8 mg PO DAILY Qty: 90 0RF magnesium oxide 400 mg (241.3 mg magnesium) tablet 400 mg PO BEDTIME 90 Days Qty: 90 1RF atorvastatin 80 mg tablet 80 mg PO DAILY 90 Days Qty: 90 1RF Emgality Pen 120 mg/mL pen injector 120 mg subcut ONCE 30 Days Qty: 1 6RF aspirin [Adult Low Dose Aspirin] 81 mg tablet,delayed release (DR/EC) 81 mg PO DAILY betamethasone dipropionate 0.05 % cream 1 appl topical DAILY 14 Days Qty: 45 0RF albuterol sulfate 2.5 mg /3 mL (0.083 %) solution for nebulization 2.5 mg inhalation QID PRN (Reason: shortness of breath or wheezing) 90 Days Qty: 180 0RF Rx Instructions: for neb fluticasone propionate 50 mcg/actuation spray,suspension 1 spray intranasal DAILY 90 Days Qty: 48 1RF Rx Instructions: administer into each nostril ibuprofen 600 mg tablet 600 mg PO TID PRN (Reason: headache) 30 Days Qty: 60 1RF Rx Instructions: w/ food clonazepam 0.5 mg tablet 0.5 mg PO BID PRN (Reason: anxiety/agitation) 60 Days Qty: 120 1RF Breztri Aerosphere 160-9-4.8 mcg/actuation HFA aerosol inhaler 2 inh inhalation BID 30 Days Qty: 1 6RF Interventions: ED Discharge Assessment Last Done: 04/10/23 17:23 Discharge Date/Time: 04/10/23 17:24
== END 2023-04-10 17:24 | disposition home or self-care (01) ==
PROVIDERS: Physician Assistant Medical; Emergency Provider Emergency Medicine; PCP Nurse Practitioner Family
DX: S09.90XA Unspecified injury of head, initial encounter (principal); S00.93XA Contusion of unspecified part of head, initial encounter; W01.0XXA Fall on same level from slipping, tripping and stumbling without subsequent striking against object, initial encounter; Z91.81 History of falling; Y93.89 Activity, other specified; Y92.018 Other place in single-family (private) house as the place of occurrence of the external cause; Y99.9 Unspecified external cause status; Z79.899 Other long term (current) drug therapy; Z79.82 Long term (current) use of aspirin
CPT/HCPCS: 36415; 70450; 71046; 71101; 72100; 72125; 72220; 73030; 80048; 80076; 80307; 83605; 83735; 84484; 85025; 93005; 99283; 99284

== ENCOUNTER 2023-04-18 10:32 | Outpatient (AMB) | payer OTHER, SELFPAY ==
--- NOTE | 2023-04-18 10:49 | MHC.OFFVIS ---
Intake Vital Signs 04/18/23 11:03 Height 4 ft 11 in Weight 123 lb BMI 24.8 BP 122/78 Blood Pressure Location Rt brachial Position Sitting Intake Visit Reasons: 4m follow up seizures - Confirmed Intake Note: Patient present for 4 month follow up seizures. Patient states dont ask Allergies Penicillins [PENICILLINS] Allergy (Intermediate, Verified 04/18/23 11:03) HIVES carbamazepine [From Tegretol] Allergy (Mild, Verified 04/18/23 11:03) HIVES diflunisal [From Dolobid] Allergy (Mild, Verified 04/18/23 11:03) HIVES erythromycin base [From Edwin-Tab] Allergy (Mild, Verified 04/18/23 11:03) HIVES phenytoin [From Dilantin] Allergy (Mild, Verified 04/18/23 11:03) RASH,HIVES piroxicam [From Feldene] Allergy (Mild, Verified 04/18/23 11:03) HIVES sulfamethoxazole [From Bactrim] Allergy (Mild, Verified 04/18/23 11:03) HIVES trimethoprim [From Bactrim] Allergy (Mild, Verified 04/18/23 11:03) HIVES valproic acid [From Depakene] Allergy (Mild, Verified 04/18/23 11:03) HIVES Depakene Allergy (Unknown, Verified 04/18/23 11:03) Rash hydrochlorothiazide [HYDROCHLOROTHIAZIDE] Allergy (Unknown, Verified 04/18/23 11:03) rash lisinopril [LISINOPRIL] Allergy (Unknown, Verified 04/18/23 11:03) rash penicillin V Allergy (Unknown, Verified 04/18/23 11:03) Rash Sulfa (Sulfonamide Antibiotics) Allergy (Unknown, Verified 04/18/23 11:03) Rash codeine [Codeine] Adverse Reaction (Intermediate, Verified 04/18/23 11:03) NAUSEA & VOMITING rash ENVIRONMENTAL Allergy (Intermediate, Uncoded 04/18/23 11:03) ASTHMA,LOSES VOICE TAPE,PLASTIC Allergy (Intermediate, Uncoded 04/18/23 11:03) RASH surgical tape Allergy (Unknown, Uncoded 04/18/23 11:03) unknown Medication List - Last Reconciled 04/18/23 by PRINCE Villalobos albuterol sulfate 2.5 mg (3 mL) inhalation QID PRN 90 days albuterol sulfate 90 mcg/actuation (ProAir HFA) 2 puffs inhalation Q6H PRN aspirin (Adult Low Dose Aspirin) 81 mg PO DAILY atorvastatin 80 mg PO DAILY 90 days betamethasone dipropionate 0.05% 1 appl topical DAILY 14 days fjaqxnqlot-fvzaqmbp-ughugmdjsa 160-9-4.8 mcg/actuation (Breztri Aerosphere) 2 inhalations inhalation BID 30 days cholecalciferol (vitamin D3) 50 mcg PO DAILY 90 days clonazepam 0.5 mg PO BID PRN 60 days cyproheptadine 4 mg PO BEDTIME 30 days fludrocortisone 0.1 mg PO DAILY 90 days fluoxetine 40 mg PO DAILY 90 days fluticasone propionate 50 mcg/actuation 1 spray intranasal DAILY 90 days folic acid 0.8 mg PO DAILY galcanezumab-gnlm (Emgality Pen) 120 mg subcut ONCE 30 days ibuprofen 600 mg PO TID PRN 30 days levothyroxine 25 mcg PO DAILY [Lifeline-Mobile unit As directed] magnesium oxide 400 mg PO BEDTIME 90 days meclizine 25 mg PO DAILY PRN 90 days montelukast 10 mg PO DAILY 90 days polyethylene glycol 3350 (Miralax) 17 grams PO DAILY PRN 90 days riboflavin (vitamin B2) 100 mg PO DAILY 90 days risedronate 35 mg PO QWEEK sumatriptan succinate take 1 tab at onset of headache; if no relief, may repeat 1 tab after at least 2 hrs; max = 2 tabs/24 hrs PO 30 days topiramate 100 mg PO BID 90 days HPI HPI Comments History of Present Illness Details 68-yr-old female presents for f/u visit. Pt reports on 04/10/23, she fell on her porch while she was carrying a chair. She does not recall falling, however her neighbor told her that she hit her head on the top railing and then on the bottom railing. She did have LOC. [place] [facility] [place] and [place]- showed no acute injury. EKG- NL. Labs- WNL. She was discharged home w/ conservative tx. Since, she has had headache, allodynia, dizziness, nausea. She states that nothing has helped- Tylenol, Ibuprofen, Sumatripatn is not helping. She has not started Emgality yet. Pt states her brother tells her that she is occasionally sleepwalking at night- has not left the house. She is seeing a therapist. [facility] Medical History (Updated 04/18/23 @ 12:53 by PRINCE Villalobos) Osteoporosis CKD (chronic kidney disease) Hypothyroid Hyperlipemia Ataxic gait Seizures Asthma Depression Conversion disorder HTN (hypertension) Muscle weakness Hypothyroid Conversion disorder with attacks or seizures, acute episode, with psychological stressor Surgical History History of right knee surgery History of lobectomy of thyroid History of arthroscopy of right knee History of ankle surgery History of arthroscopy of left knee History of hysterectomy Family History Father CVD (cardiovascular disease) Stomach ulcer Cardiac arrest H/O heart bypass surgery Mother History of heart attack CHF (congestive heart failure) Lung cancer Diabetes mellitus High cholesterol HTN (hypertension) Hypothyroidism Sister Lung cancer Substance use disorder Brother Colitis Sister No problems noted. Sister Obstetric pulmonary blood clot embolism, antepartum Paternal Aunt Mental health disorder Substance use disorder Maternal Grandmother Mental health disorder Family/Other Substance use disorder Social History Household Members: Family Household Members Other:: brother, 2 cats Housing: House Alcohol intake: never Patient Tobacco Use Status: Never used Tobacco e-Cigarette/Vaping Use: Never Used Second Hand Smoke Exposure: No Current occupational status: disabled Cognitive needs: No Hearing needs: No Vision needs: No Review of Systems Const All systems reviewed & are unremarkable except as noted in HPI and below Physical Exam Vital Signs: Last Vital Signs BP 122/78 04/18/23 11:03 BMI result Body Mass Index 24.8 Const General: cooperative and no acute distress Orientation/consciousness: patient oriented x3 HEENT Head: Yes normocephalic Resp Effort & Inspection: normal respiratory effort and able to speak in complete sentences Neuro Other: Photophobic. Diffuse allodynia Posterior cervical tightness and tenderness Finger- nose- mild dysmetria on left, but on repeat slow but intact Unsteady gait, steadier with walker General: patient oriented x3 and CN's II-XI intact bilaterally Cognition (Neuro): normal cognition Motor exam (neuro): 5/5 motor strength present throughout Psych Appearance: grossly normal Mental Status: mental status grossly normal Speech and movement: Normal speech and movement present Affect: normal affect Attitude: cooperative Assessment & Plan Assessment & Plan (1) Concussion with loss of consciousness: Comment: 04/10/23 Code(s): S06.0X9A - Concussion with loss of consciousness of unspecified duration, initial encounter (2) Migraine: Code(s): G43.909 - Migraine, unspecified, not intractable, without status migrainosus (3) Sleep walking: Code(s): F51.3 - Sleepwalking [somnambulism] (4) Conversion disorder with attacks or seizures, acute episode, with psychological stressor: Code(s): F44.5 - Conversion disorder with seizures or convulsions Plan For recent concussion w/ LOC: Head Ct was normal. Discussed that pt's concussion s/s may be persisting as she has a h/o migraine and concussions. We will start the Emgality loading dose injections today- she will provide instruction and injection- see below for clinical lab assistant. Will also offer pt sample of Nurtec ODT 75mg- take 1 tab SL qd prn headache. Continue to rest, avoid excess light/electronic exposure. Use walker consistently. Advised to avoid carrying large objects which may increase her risk for falls. Continue Fluoxetine 20mg qd. Continue Clonazepam 0.5mg bid. Continue Mag and B2- for headache prevention. Continue Topiramate 100mg bid- for headache and convulsion prevention. Ibuprofen prn. Continue prn Tylenol and Sumatriptan. Offered alternate triptan (in hopes alternate would cause less sleepiness), howver pt declines at this time. F/u here in 3 months, sooner with any new or worsening s/s. Samples given today: Nurtec ODT 75mg 1 box w/ 4 sleeves of 2 tabs (8 tabs total) Instructions: 1 tab SL qd prn migraine. Lot # [id number], exp 12/03 RNMargaret documentation: 68y/o female patient presents for Emgality injection training. Emgality 120mg/ml X2 injection sample provided. Lot #[id number] and Exp 2023MAY 28. Education regarding injection and side effects provided. Emgality 120mg/ml injection self administered on LLQ and RN administered on RLQ. Pt tolerated injection well and demonstrated the injection; will review injection process again next month. Follow up in clinic 05/18/23 for next injection. Follow-up in clinic in 3-4 months or sooner prn Medications: Refilled sumatriptan succinate take 1 tab at onset of headache; if no relief, may repeat 1 tab after at least 2 hrs; max = 2 tabs/24 hrs PO 10 tabs 1RF 30 days clonazepam 0.5 mg PO BID PRN 120 tabs 1RF anxiety/agitation 60 days topiramate 100 mg PO BID 180 tabs 1RF 90 days Coding Level of Care Code Est Pt Level 4 (41390) Diagnoses Concussion with loss of consciousness S06.0X9A Migraine G43.909 Sleep walking F51.3 Conversion disorder with attacks or seizures, acute episode, with psychological stressor F44.5
[2023-04-18 11:03] VITALS: BP 122/78; BMI 24.8
== END 2023-04-18 12:22 | disposition home or self-care (01) ==
PROVIDERS: PCP Nurse Practitioner Family; Visit Provider Nurse Practitioner Family
DX: S06.0X9A Concussion with loss of consciousness of unspecified duration, initial encounter (principal); G43.909 Migraine, unspecified, not intractable, without status migrainosus; F51.3 Sleepwalking [somnambulism]; F44.5 Conversion disorder with seizures or convulsions
CPT/HCPCS: 99214

== ENCOUNTER → 2023-04-18 10:32 | Outpatient (BNVA) | payer OTHER, SELFPAY | PROVIDERS: PCP Nurse Practitioner Family; Visit Provider Nurse Practitioner Family | DX: S06.0X9A Concussion with loss of consciousness of unspecified duration, initial encounter (principal); G43.909 Migraine, unspecified, not intractable, without status migrainosus; F51.3 Sleepwalking [somnambulism]; F44.5 Conversion disorder with seizures or convulsions | CPT/HCPCS: 99212 ==

== ENCOUNTER 2023-04-24 12:18 | Outpatient (REF) | payer OTHER, SELFPAY ==
[2023-04-24 13:59] LABS: Appearance Urine Clear; Color Urine Dark Yellow; Glucose Urine UA Negative (Negative); Leukocyte Esterase Urine Small (1+) (Negative); Nitrite Urine Negative (Negative); UMIC TRIGGER UACC YES; Urine Blood Negative (Negative); Urine Ketones Negative (Negative); Urine Protein Negative (Neg-Trace)
[2023-04-24 14:14] LABS: Bacteria Urine None Seen (None Seen); Hyaline Casts Urine 0-2 /LPF (0-2); Squamous Epithelial Cell Urine 0-2 /HPF (0-2); UACC Culture Trigger YES; WBC Urine 0-5 /HPF (0-5)
[2023-04-24 14:40] LABS: Alanine Aminotransferase 15 U/L (0-31); Albumin Level 4.1 g/dL (3.5-5.0); Alkaline Phosphatase 86 U/L (39-117); Anion Gap 11 (12-20); Aspartate Amino Transferase 27 U/L (5-31); Bilirubin Total 0.4 mg/dL (0.0-1.0); Blood Urea Nitrogen 10 mg/dL (9-16); Calcium 9.1 mg/dL (8.4-10.2); Carbon Dioxide 25 mmol/L (22-29); Chloride 108 mmol/L (96-108); Cholesterol 229 mg/dL (<200); Estimated Glomerular Filt Rate > 60; Glucose Fasting 90 mg/dL (60-99); HDL Cholesterol 97 mg/dL (>40); LDL Cholesterol Calculated 119 mg/dL (<100); Potassium 3.5 mmol/L (3.3-5.1); Sodium 140 mmol/L (135-145); Total Protein 7.2 g/dL (6.5-8.0); Triglycerides 66 mg/dL (<150)
== END 2023-04-24 12:19 | disposition home or self-care (01) ==
LOC: HO.HMGCLDS 12:18
PROVIDERS: PCP Nurse Practitioner Family; Visit Provider Nurse Practitioner Family
DX: J45.909 Unspecified asthma, uncomplicated (principal); E78.5 Hyperlipidemia, unspecified; Z91.09 Other allergy status, other than to drugs and biological substances; I10 Essential (primary) hypertension; R82.90 Unspecified abnormal findings in urine
CPT/HCPCS: 36415; 80053; 80061; 81001; 87086; 99212

== ENCOUNTER 2023-04-24 13:58 | Outpatient (AMB) | payer OTHER, SELFPAY ==
[2023-04-24 14:02] VITALS: BP 117/67; PULSE 78; O2SAT 100; BMI 25.2
--- NOTE | 2023-04-24 14:02 | MHC.OFFVIS ---
Intake Vital Signs 04/24/23 14:02 Height 4 ft 11 in Weight 124 lb 8.979 oz BMI 25.2 BP 117/67 Blood Pressure Location Rt brachial Position Sitting Pulse 78 Pulse Source Doppler Pulse Oximetry (%) 100 Oxygen Delivery Method Room Air Intake Visit Reasons: Shortness of breath Allergies Penicillins [PENICILLINS] Allergy (Intermediate, Verified 04/24/23 14:09) HIVES carbamazepine [From Tegretol] Allergy (Mild, Verified 04/24/23 14:09) HIVES diflunisal [From Dolobid] Allergy (Mild, Verified 04/24/23 14:09) HIVES erythromycin base [From Edwin-Tab] Allergy (Mild, Verified 04/24/23 14:09) HIVES phenytoin [From Dilantin] Allergy (Mild, Verified 04/24/23 14:09) RASH,HIVES piroxicam [From Feldene] Allergy (Mild, Verified 04/24/23 14:09) HIVES sulfamethoxazole [From Bactrim] Allergy (Mild, Verified 04/24/23 14:09) HIVES trimethoprim [From Bactrim] Allergy (Mild, Verified 04/24/23 14:09) HIVES valproic acid [From Depakene] Allergy (Mild, Verified 04/24/23 14:09) HIVES Depakene Allergy (Unknown, Verified 04/24/23 14:09) Rash hydrochlorothiazide [HYDROCHLOROTHIAZIDE] Allergy (Unknown, Verified 04/24/23 14:09) rash lisinopril [LISINOPRIL] Allergy (Unknown, Verified 04/24/23 14:09) rash penicillin V Allergy (Unknown, Verified 04/24/23 14:09) Rash Sulfa (Sulfonamide Antibiotics) Allergy (Unknown, Verified 04/24/23 14:09) Rash codeine [Codeine] Adverse Reaction (Intermediate, Verified 04/24/23 14:09) NAUSEA & VOMITING rash ENVIRONMENTAL Allergy (Intermediate, Uncoded 04/18/23 11:03) ASTHMA,LOSES VOICE TAPE,PLASTIC Allergy (Intermediate, Uncoded 04/18/23 11:03) RASH surgical tape Allergy (Unknown, Uncoded 04/18/23 11:03) unknown HPI Shortness of breath HPI Details 68-year-old lady, nonsmoker, with underlying history of asthma for approximately 30 years, with worsening control of symptoms after COVID-19 in June of 2021 referred for pulmonary evaluation. Patient complains of intermittent sensation lungs burning , some wheezing dyspnea. She has been using Wixela, albuterol MDI/nebs, and Singulair with suboptimal control of her symptoms. She does have 3 cats and multiple environmental allergies. 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 At the last office visit patient was switched to BrezTri with some improvement in her symptoms. Her RAST is negative, however she does have significant eosinophilia. [facility] Medical History (Updated 04/18/23 @ 12:53 by PRINCE Villalobos) Osteoporosis CKD (chronic kidney disease) Hypothyroid Hyperlipemia Ataxic gait Seizures Asthma Depression Conversion disorder HTN (hypertension) Muscle weakness Hypothyroid Conversion disorder with attacks or seizures, acute episode, with psychological stressor Surgical History History of right knee surgery History of lobectomy of thyroid History of arthroscopy of right knee History of ankle surgery History of arthroscopy of left knee History of hysterectomy Family History Father CVD (cardiovascular disease) Stomach ulcer Cardiac arrest H/O heart bypass surgery Mother History of heart attack CHF (congestive heart failure) Lung cancer Diabetes mellitus High cholesterol HTN (hypertension) Hypothyroidism Sister Lung cancer Substance use disorder Brother Colitis Sister No problems noted. Sister Obstetric pulmonary blood clot embolism, antepartum Paternal Aunt Mental health disorder Substance use disorder Maternal Grandmother Mental health disorder Family/Other Substance use disorder Social History Household Members: Family Household Members Other:: brother, 2 cats Housing: House Alcohol intake: never Patient Tobacco Use Status: Never used Tobacco e-Cigarette/Vaping Use: Never Used Second Hand Smoke Exposure: No Current occupational status: disabled Cognitive needs: No Hearing needs: No Vision needs: No Review of Systems Const Denies daytime sleepiness, Denies excessive sweating, Denies fatigue, Denies fever(s), Denies lethargy, Denies malaise, Denies night sweats, Denies snoring and Denies weight loss Eyes Denies blurry vision and Denies itchy eyes ENT Denies nasal congestion, Denies post nasal drip, Denies sinus pain, Denies sinus pressure and Denies other ( Thrush) Card Denies chest pain, Denies pedal edema, Denies dyspnea, Denies orthopnea and Denies paroxysmal nocturnal dyspnea Resp Denies cough, Denies hemoptysis, Denies excessive phlegm production, Denies dyspnea, Denies snoring and Denies wheezing GI Denies abdominal pain and Denies heartburn Musc Denies myalgias, Denies arthralgias and Denies joint swelling Skin/Breast Denies rash Neuro Denies memory loss and Denies seizure-like activity Psych Denies abnormal sleep pattern, Denies anxiety and Denies memory loss Endo Denies excessive sweating, Denies fatigue and Denies heat intolerance Sherman/Lymph Denies easy bruising Aller/Immun Denies itchy eyes, Denies seasonal rhinorrhea and Denies wheezing Physical Exam Vital Signs: Last Vital Signs Pulse 78 04/24/23 14:02 BP 117/67 04/24/23 14:02 Pulse Ox 100 04/24/23 14:02 Oxygen Delivery Method Room Air 04/24/23 14:02 BMI result Body Mass Index 25.2 Const General: no acute distress and alert Nutritional Appearance: not obese Orientation/consciousness: Other orientation findings ( oriented) HEENT Head: Yes atraumatic Eyes General: appearance normal, both eyes and all related structures Sclerae: sclerae normal EOM: EOMs intact bilaterally Neck Neck: Yes supple Lymphatic: no lymphadenopathy noted Resp Effort & Inspection: normal respiratory effort and no use of accessory muscles Auscultation: clear to auscultation bilaterally Cardio Rate: regular rate Rhythm: regular rhythm Heart sounds: no gallops, no murmurs and no rubs Skin General skin exam: other ( warm) Extrem General: No clubbing, No cyanosis and No edema Assessment & Plan Assessment & Plan (1) Asthma: Code(s): J45.909 - Unspecified asthma, uncomplicated Plan: Underlying asthma with improved, but still suboptimal control on BrezTri. Patient may benefit from Fasenra. She wants to think about before starting it. (2) Environmental allergies: Code(s): Z91.09 - Other allergy status, other than to drugs and biological substances Plan: Results of RAST reviewed and are section negative. Does have significant eosinophilia. May benefit from Fasenra. Coding Level of Care Code Est Pt Level 4 (22636) Diagnoses Asthma J45.909 Environmental allergies Z91.09
== END 2023-04-24 14:40 | disposition home or self-care (01) ==
PROVIDERS: PCP Nurse Practitioner Family; Visit Provider Internal Medicine Pulmonary Disease
DX: J45.909 Unspecified asthma, uncomplicated (principal); Z91.09 Other allergy status, other than to drugs and biological substances
CPT/HCPCS: 99214

== ENCOUNTER 2023-05-01 11:15 | Outpatient (AMB) | payer OTHER, SELFPAY ==
[2023-05-01 12:25] VITALS: BP 120/70; PULSE 83; TEMP 36.6; O2SAT 98; BMI 25.0
--- NOTE | 2023-05-01 12:25 | AM.OFFWIN_ITS ---
Intake Vital Signs 05/01/23 12:25 Height 4 ft 11 in Weight 124 lb BMI 25.0 BP 120/70 Blood Pressure Location Lt brachial Position Sitting Pulse 83 Pulse Source Pulse Oximeter Temp 97.8 F Temp Source Temporal Artery Scan Pulse Oximetry (%) 98 Oxygen Delivery Method Room Air Intake Visit Reasons: ear ache, sore throat (lobby masked no car) Intake Note: pt is here for c/o ear ache, sore throat Patient Tobacco Use Status: Never used Tobacco Allergies Penicillins [PENICILLINS] Allergy (Intermediate, Verified 05/01/23 12:26) HIVES carbamazepine [From Tegretol] Allergy (Mild, Verified 05/01/23 12:26) HIVES diflunisal [From Dolobid] Allergy (Mild, Verified 05/01/23 12:26) HIVES erythromycin base [From Edwin-Tab] Allergy (Mild, Verified 05/01/23 12:26) HIVES phenytoin [From Dilantin] Allergy (Mild, Verified 05/01/23 12:26) RASH,HIVES piroxicam [From Feldene] Allergy (Mild, Verified 05/01/23 12:26) HIVES sulfamethoxazole [From Bactrim] Allergy (Mild, Verified 05/01/23 12:26) HIVES trimethoprim [From Bactrim] Allergy (Mild, Verified 05/01/23 12:26) HIVES valproic acid [From Depakene] Allergy (Mild, Verified 05/01/23 12:26) HIVES Depakene Allergy (Unknown, Verified 05/01/23 12:26) Rash hydrochlorothiazide [HYDROCHLOROTHIAZIDE] Allergy (Unknown, Verified 05/01/23 12:26) rash lisinopril [LISINOPRIL] Allergy (Unknown, Verified 05/01/23 12:26) rash penicillin V Allergy (Unknown, Verified 05/01/23 12:26) Rash Sulfa (Sulfonamide Antibiotics) Allergy (Unknown, Verified 05/01/23 12:26) Rash codeine [Codeine] Adverse Reaction (Intermediate, Verified 05/01/23 12:26) NAUSEA & VOMITING rash ENVIRONMENTAL Allergy (Intermediate, Uncoded 04/18/23 11:03) ASTHMA,LOSES VOICE TAPE,PLASTIC Allergy (Intermediate, Uncoded 04/18/23 11:03) RASH surgical tape Allergy (Unknown, Uncoded 04/18/23 11:03) unknown Do you need a note to return to daycare/school/sports/work: Yes HPI HPI Comments History of Present Illness Details Patient is a 68-year-old female in today for a sick visit. Patient states that since she was discharged from the hospital around 7 weeks prior to the point she developed symptoms of an upper respiratory infection, which have gotten worse over time. She states that she is bilateral ear discomfort, sore throat, headache, cough. She states she gets some relief with Tylenol. Denies chest pain, shortness of breath, nausea, vomiting, diarrhea. Denies fever, but states she does feel like she has chills. Patient's head is normocephalic, TMs intact visible and pearly nguyễn, ear canal has some dry skin and scaling. No sinus tenderness. Nares patent. No mastoid tenderness. She has postnasal drip. No lymphadenopathy. Full range of motion of neck and head. Breath sounds clear bilaterally. Patient's heart rate and rhythm normal S1-S2 no rubs, gallops, or murmurs. Patient likely has upper respiratory infection. Unlikely to have epiglottitis, peritonsillar abscess, or mastoiditis. Will prescribe azithromycin to be taken in its entirety and as prescribed. Will prescribe cetirizine 10 mg to be taken 1 time daily. While suggest the patient utilize [id number]-kal-mrjzfmw ear drops for dry years. Patient has been educated on side effects of medication and how to take them properly. She has been educated on signs of worsening symptoms and when to return to the walk-in clinic or when to present to the emergency room. Patient is agreeable to this plan [facility], [facility] Medical History (Updated 04/18/23 @ 12:53 by PRINCE Villalobos) Osteoporosis CKD (chronic kidney disease) Hypothyroid Hyperlipemia Ataxic gait Seizures Asthma Depression Conversion disorder HTN (hypertension) Muscle weakness Hypothyroid Conversion disorder with attacks or seizures, acute episode, with psychological stressor Surgical History History of right knee surgery History of lobectomy of thyroid History of arthroscopy of right knee History of ankle surgery History of arthroscopy of left knee History of hysterectomy Family History Father CVD (cardiovascular disease) Stomach ulcer Cardiac arrest H/O heart bypass surgery Mother History of heart attack CHF (congestive heart failure) Lung cancer Diabetes mellitus High cholesterol HTN (hypertension) Hypothyroidism Sister Lung cancer Substance use disorder Brother Colitis Sister No problems noted. Sister Obstetric pulmonary blood clot embolism, antepartum Paternal Aunt Mental health disorder Substance use disorder Maternal Grandmother Mental health disorder Family/Other Substance use disorder Household Members: Family Household Members Other:: brother, 2 cats Housing: House Alcohol intake: never Patient Tobacco Use Status: Never used Tobacco e-Cigarette/Vaping Use: Never Used Second Hand Smoke Exposure: No Current occupational status: disabled Cognitive needs: No Hearing needs: No Vision needs: No Review of Systems Const All systems reviewed & are unremarkable except as noted in HPI and below Reports headache(s) ENT Denies dizziness, Reports headache(s), Reports nasal congestion, Reports post nasal drip and Reports sore throat Card Denies chest pain, Denies leg edema and Denies dyspnea Resp Denies dyspnea GI Denies change in bowel habits and Denies nausea Neuro Denies dizziness and Reports headache(s) Physical Exam Vital Signs: Last Vital Signs Temp 97.8 F 05/01/23 12:25 Pulse 83 05/01/23 12:25 BP 120/70 05/01/23 12:25 Pulse Ox 98 05/01/23 12:25 Oxygen Delivery Method Room Air 05/01/23 12:25 BMI result Body Mass Index 25.0 Vital signs reviewed and are stable Const Other: Appearance: Alert.? Oriented X3.? No acute distress.? Head: Normocephalic. Some scaling. Eyes: Pupils equal, round and reactive to light.? ENT: TM intact, scaling in external ear canal. Nares patent. Post nasal drip. ? Neck: Normal inspection.? Neck supple.? CVS: Normal heart rate and rhythm.? Pulses normal.? Respiratory: No respiratory distress.? Breath sounds normal.? Neuro: Oriented X 3.? No motor deficit.? General: cooperative Results Reviewed Results Reviewed: Will get back to patient with swab results. Assessment & Plan Assessment & Plan (1) Upper respiratory infection: Code(s): J06.9 - Acute upper respiratory infection, unspecified Qualifiers: URI type: unspecified URI Qualified Code(s): J06.9 - Acute upper respiratory infection, unspecified Plan: Patient does not want antibiotics due to the many sensitivities to them. Patient has been given a swab in office will return to her with results. She has been educated that she can use under Tylenol as directed for relief. Continue to take other medications as prescribed. I have educated her on signs of worsening symptoms and when to return to the walk-in or to present to the emergency room. Patient is agreeable to this plan (2) Post-nasal drip: Code(s): R09.82 - Postnasal drip Plan: Patient has Flonase. Will also give cetirizine to be taken once per day Po. Patient has been educated on side effects of this medication. He can exacerbate drying effects on the body. Orders: Orders SARS-CoV2/FLU/RSV Today J06.9 - Acute upper respiratory infection, unspecified Medications: New cetirizine (All Day Allergy (cetirizine)) Do not take with meclizine. 10 mg PO DAILY PRN 30 caps 0RF allergy symptoms Coding Level of Care Code Est Pt Level 3 (25413) Diagnoses Upper respiratory tract infection, unspecified type J06.9 URI type: unspecified URI Post-nasal drip R09.82 Time Spent (min) 20
== END 2023-05-01 13:57 | disposition home or self-care (01) ==
PROVIDERS: PCP Nurse Practitioner Family; Visit Provider Nurse Practitioner Primary Care
DX: J06.9 Acute upper respiratory infection, unspecified (principal); R09.82 Postnasal drip
CPT/HCPCS: 99213

== ENCOUNTER 2023-05-01 13:45 | Outpatient (REF) | payer OTHER, SELFPAY ==
[2023-05-01 17:11] LABS: Influenza A PCR NEGATIVE (Negative); Influenza B PCR NEGATIVE (Negative); Resp Syncy Virus RNA Qual PCR NEGATIVE (Negative); SARS COV2 PCR INHOUSE NEGATIVE (Negative)
== END 2023-05-01 13:46 | disposition home or self-care (01) ==
LOC: HO.LAB 13:45
PROVIDERS: Visit Provider Nurse Practitioner Primary Care
DX: Z11.52 Encounter for screening for COVID-19 (principal); J06.9 Acute upper respiratory infection, unspecified
CPT/HCPCS: 0241U

== ENCOUNTER → 2023-05-18 10:14 | Outpatient (BNVA) | payer OTHER, SELFPAY | PROVIDERS: PCP Nurse Practitioner Family; Visit Provider Nurse Practitioner Family ==

== ENCOUNTER 2023-05-23 11:30 | Outpatient (AMB) | payer OTHER, SELFPAY ==
[2023-05-23 11:31] VITALS: BP 112/60; PULSE 82; BMI 24.8
--- NOTE | 2023-05-23 11:31 | A.OFFVIS_ITS ---
Intake Vital Signs 05/23/23 11:31 Height 4 ft 11 in Weight 123 lb 0.287 oz BMI 24.8 BP 112/60 Blood Pressure Location Lt brachial Position Sitting Pulse 82 Pulse Source Pulse Oximeter Intake Visit Reasons: f/u osteoporosis-CONFIRMED Intake Note: Patient present today for Osteoporosis follow up visit. 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 Accompanied by: Self / Same As Patient Allergies Penicillins [PENICILLINS] Allergy (Intermediate, Verified 05/23/23 11:36) HIVES carbamazepine [From Tegretol] Allergy (Mild, Verified 05/23/23 11:36) HIVES diflunisal [From Dolobid] Allergy (Mild, Verified 05/23/23 11:36) HIVES erythromycin base [From Edwin-Tab] Allergy (Mild, Verified 05/23/23 11:36) HIVES phenytoin [From Dilantin] Allergy (Mild, Verified 05/23/23 11:36) RASH,HIVES piroxicam [From Feldene] Allergy (Mild, Verified 05/23/23 11:36) HIVES sulfamethoxazole [From Bactrim] Allergy (Mild, Verified 05/23/23 11:36) HIVES trimethoprim [From Bactrim] Allergy (Mild, Verified 05/23/23 11:36) HIVES valproic acid [From Depakene] Allergy (Mild, Verified 05/23/23 11:36) HIVES Depakene Allergy (Unknown, Verified 05/23/23 11:36) Rash hydrochlorothiazide [HYDROCHLOROTHIAZIDE] Allergy (Unknown, Verified 05/23/23 11:36) rash lisinopril [LISINOPRIL] Allergy (Unknown, Verified 05/23/23 11:36) rash penicillin V Allergy (Unknown, Verified 05/23/23 11:36) Rash Sulfa (Sulfonamide Antibiotics) Allergy (Unknown, Verified 05/23/23 11:36) Rash codeine [Codeine] Adverse Reaction (Intermediate, Verified 05/23/23 11:36) NAUSEA & VOMITING rash ENVIRONMENTAL Allergy (Intermediate, Uncoded 04/18/23 11:03) ASTHMA,LOSES VOICE TAPE,PLASTIC Allergy (Intermediate, Uncoded 04/18/23 11:03) RASH surgical tape Allergy (Unknown, Uncoded 04/18/23 11:03) unknown Medication List - Last Reconciled 05/23/23 by Mirza Reyes MD albuterol sulfate 2.5 mg (3 mL) inhalation QID PRN 90 days albuterol sulfate 90 mcg/actuation (ProAir HFA) 2 puffs inhalation Q6H PRN aspirin (Adult Low Dose Aspirin) 81 mg PO DAILY atorvastatin 80 mg PO DAILY 90 days betamethasone dipropionate 0.05% 1 appl topical DAILY 14 days kfmxrppqon-ihbzroap-nijqppzrba 160-9-4.8 mcg/actuation (Breztri Aerosphere) 2 inhalations inhalation BID 30 days cetirizine (All Day Allergy (cetirizine)) 10 mg PO DAILY PRN cholecalciferol (vitamin D3) 50 mcg PO DAILY 90 days clonazepam 0.5 mg PO BID PRN 60 days cyproheptadine 4 mg PO BEDTIME 30 days ezetimibe 10 mg PO DAILY fludrocortisone 0.1 mg PO DAILY 90 days fluoxetine 40 mg PO DAILY 90 days fluticasone propionate 50 mcg/actuation 1 spray intranasal DAILY 90 days folic acid 0.8 mg PO DAILY galcanezumab-gnlm (Emgality Pen) 120 mg subcut ONCE 30 days ibuprofen 600 mg PO TID PRN 30 days levothyroxine 25 mcg PO DAILY [Lifeline-Mobile unit As directed] magnesium oxide 400 mg PO BEDTIME 90 days meclizine 25 mg PO DAILY PRN 90 days montelukast 10 mg PO DAILY 90 days polyethylene glycol 3350 (Miralax) 17 grams PO DAILY PRN 90 days riboflavin (vitamin B2) 100 mg PO DAILY 90 days risedronate 35 mg PO QWEEK sumatriptan succinate take 1 tab at onset of headache; if no relief, may repeat 1 tab after at least 2 hrs; max = 2 tabs/24 hrs PO 30 days topiramate 100 mg PO BID 90 days HPI HPI Comments History of Present Illness Details 68 YO Female with PMHx Sx disorder is seen in t follow-up at the request of PCP for Osteoporosis. First diagnosed in 09/10/2020 . Received treatment in the past with alendronate , from 09/2020 to 11/2020 . Could not Tolerated treatment because of muscle aches . No history of pathologic fracture or ONJ. Fx coccyx due to fall 1 yr ago Has no servings of dietary calcium per day i. Does not Takes Calcium supplement Takes 2000 IU of Vitamin D daily. Denies ever using PPI, anticoagulant, does use antiepileptic but took glucocorticoid medication for asthma . Does weight bearing exercise 7 days per week in the form of walking. 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 UTD on dental cleanings and sees dentist every 6 months. No planned upcoming dental work or extractions. DXA dated 09/14/20 :FINDINGS: AP SPINE L1-L4: Current: BMD 1.044 g/cm2, Z-score 0.8, T-score -1.1, osteopenia, 14.6% decrease from baseline (<5% change is not significant). Baseline: BMD 1.223 g/cm2. LEFT FEMUR, NECK: Current: BMD 0.683 g/cm2, Z-score -0.8, T-score -2.6, osteoporosis. Baseline: BMD 0.851 g/cm2. LEFT FEMUR, TOTAL: Current: BMD 0.712 g/cm2, Z-score -0.8, T-score -2.4, osteopenia, 26.1% decrease from baseline (<5% change is not significant). Baseline: BMD 0.964 g/cm2. Labs: Secondary workup was negative Currently on risedronate 35 mg q.week. Admits to occasional non-compliance [facility] Medical History (Updated 05/02/23 @ 11:21 by Case Duff, [facility]) Hyperlipemia Osteoporosis CKD (chronic kidney disease) Hypothyroid Ataxic gait Seizures Asthma Depression Conversion disorder HTN (hypertension) Muscle weakness Hypothyroid Conversion disorder with attacks or seizures, acute episode, with psychological stressor Surgical History History of right knee surgery History of lobectomy of thyroid History of arthroscopy of right knee History of ankle surgery History of arthroscopy of left knee History of hysterectomy Family History Father CVD (cardiovascular disease) Stomach ulcer Cardiac arrest H/O heart bypass surgery Mother History of heart attack CHF (congestive heart failure) Lung cancer Diabetes mellitus High cholesterol HTN (hypertension) Hypothyroidism Sister Lung cancer Substance use disorder Brother Colitis Sister No problems noted. Sister Obstetric pulmonary blood clot embolism, antepartum Paternal Aunt Mental health disorder Substance use disorder Maternal Grandmother Mental health disorder Family/Other Substance use disorder Social History Household Members: Family Household Members Other:: brother, 2 cats Housing: House Alcohol intake: never Patient Tobacco Use Status: Never used Tobacco e-Cigarette/Vaping Use: Never Used Second Hand Smoke Exposure: No Current occupational status: disabled Cognitive needs: No Hearing needs: No Vision needs: No Physical Exam Vital Signs: Last Vital Signs Pulse 82 05/23/23 11:31 BP 112/60 05/23/23 11:31 BMI result Body Mass Index 24.8 Assessment & Plan Assessment & Plan (1) Osteoporosis: Code(s): M81.0 - Age-related osteoporosis without current pathological fracture Plan: This is a 66-year-old white female with a history of osteoporosis. Secondary causes have been ruled out. Risk factors include surgical hysterectomy as well as past use of chronic steroids. Recent bone density showed improvement into the osteopenic rate The plan is to continue risedronate. Coding Level of Care Code Est Pt Level 3 (26788) Diagnoses Osteoporosis M81.0
== END 2023-05-23 12:01 | disposition home or self-care (01) ==
PROVIDERS: PCP Nurse Practitioner Family; Visit Provider Internal Medicine Endocrinology, Diabetes & Metabolism
DX: M81.0 Age-related osteoporosis without current pathological fracture (principal)
CPT/HCPCS: 99213

== ENCOUNTER → 2023-05-23 11:30 | Outpatient (BNVA) | payer OTHER, SELFPAY | PROVIDERS: PCP Nurse Practitioner Family; Visit Provider Internal Medicine Endocrinology, Diabetes & Metabolism | DX: M81.0 Age-related osteoporosis without current pathological fracture (principal) | CPT/HCPCS: 99212 ==

== ENCOUNTER 2023-07-10 13:29 | Outpatient (AMB) | payer OTHER, SELFPAY ==
--- NOTE | 2023-07-10 13:42 | A.OFFVIS_ITS ---
Intake Vital Signs 07/10/23 13:43 Height 4 ft 11 in BP 132/70 Blood Pressure Location Rt brachial Position Sitting Pulse 76 Pulse Source Doppler Pulse Oximetry (%) 98 Oxygen Delivery Method Room Air Intake Visit Reasons: Shortness of breath Allergies Penicillins [PENICILLINS] Allergy (Intermediate, Verified 05/23/23 11:36) HIVES carbamazepine [From Tegretol] Allergy (Mild, Verified 05/23/23 11:36) HIVES diflunisal [From Dolobid] Allergy (Mild, Verified 05/23/23 11:36) HIVES erythromycin base [From Edwin-Tab] Allergy (Mild, Verified 05/23/23 11:36) HIVES phenytoin [From Dilantin] Allergy (Mild, Verified 05/23/23 11:36) RASH,HIVES piroxicam [From Feldene] Allergy (Mild, Verified 05/23/23 11:36) HIVES sulfamethoxazole [From Bactrim] Allergy (Mild, Verified 05/23/23 11:36) HIVES trimethoprim [From Bactrim] Allergy (Mild, Verified 05/23/23 11:36) HIVES valproic acid [From Depakene] Allergy (Mild, Verified 05/23/23 11:36) HIVES Depakene Allergy (Unknown, Verified 05/23/23 11:36) Rash hydrochlorothiazide [HYDROCHLOROTHIAZIDE] Allergy (Unknown, Verified 05/23/23 11:36) rash lisinopril [LISINOPRIL] Allergy (Unknown, Verified 05/23/23 11:36) rash penicillin V Allergy (Unknown, Verified 05/23/23 11:36) Rash Sulfa (Sulfonamide Antibiotics) Allergy (Unknown, Verified 05/23/23 11:36) Rash codeine [Codeine] Adverse Reaction (Intermediate, Verified 05/23/23 11:36) NAUSEA & VOMITING rash ENVIRONMENTAL Allergy (Intermediate, Uncoded 04/18/23 11:03) ASTHMA,LOSES VOICE TAPE,PLASTIC Allergy (Intermediate, Uncoded 04/18/23 11:03) RASH surgical tape Allergy (Unknown, Uncoded 04/18/23 11:03) unknown HPI Shortness of breath HPI Details 68-year-old lady, nonsmoker, with underl jono history of asthma for approximately 30 years, with worsening control of symptoms after COVID-19 in June of 2021 referred for pulmonary evaluation. Patient complains of interm ittent sensation lungs burning , some wheezing dyspnea. She has been using Wixela, albuterol MDI/nebs, and Singulair with suboptimal control of her symptoms. She does have 3 cats and multiple environmental allergies. 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 Patient has been using breast tree, however she states she does not get therapeutic effect because after using she coughs tried back out. She still not interested in pursuing Fasenra. Patient does complain of significant pain on touching her back or chest. [facility] Medical History (Updated 05/02/23 @ 11:21 by Case Duff, [facility]) Hyperlipemia Osteoporosis CKD (chronic kidney disease) Hypothyroid Ataxic gait Seizures Asthma Depression Conversion disorder HTN (hypertension) Muscle weakness Hypothyroid Conversion disorder with attacks or seizures, acute episode, with psychological stressor Surgical History History of right knee surgery History of lobectomy of thyroid History of arthroscopy of right knee History of ankle surgery History of arthroscopy of left knee History of hysterectomy Family History Father CVD (cardiovascular disease) Stomach ulcer Cardiac arrest H/O heart bypass surgery Mother History of heart attack CHF (congestive heart failure) Lung cancer Diabetes mellitus High cholesterol HTN (hypertension) Hypothyroidism Sister Lung cancer Substance use disorder Brother Colitis Sister No problems noted. Sister Obstetric pulmonary blood clot embolism, antepartum Paternal Aunt Mental health disorder Substance use disorder Maternal Grandmother Mental health disorder Family/Other Substance use disorder Social History Household Members: Family Household Members Other:: brother, 2 cats Housing: House Alcohol intake: never Patient Tobacco Use Status: Never used Tobacco e-Cigarette/Vaping Use: Never Used Second Hand Smoke Exposure: No Current occupational status: disabled Cognitive needs: No Hearing needs: No Vision needs: No Review of Systems Const Denies daytime sleepiness, Denies excessive sweating, Denies fatigue, Denies fever(s), Denies lethargy, Denies malaise, Denies night sweats, Denies snoring and Denies weight loss Eyes Denies blurry vision and Denies itchy eyes ENT Denies nasal congestion, Denies post nasal drip, Denies sinus pain, Denies sinus pressure and Denies other ( Thrush) Card Denies chest pain, Denies pedal edema, Denies dyspnea, Reports dyspnea on exertion, Denies orthopnea and Denies paroxysmal nocturnal dyspnea Resp Denies cough, Denies hemoptysis, Denies excessive phlegm production, Denies dyspnea, Reports dyspnea on exertion, Denies snoring and Denies wheezing GI Denies abdominal pain and Denies heartburn Neuro Denies memory loss and Denies seizure-like activity Psych Denies abnormal sleep pattern, Denies anxiety and Denies memory loss Endo Denies excessive sweating, Denies fatigue and Denies heat intolerance Sherman/Lymph Denies easy bruising Aller/Immun Denies itchy eyes, Denies seasonal rhinorrhea and Denies wheezing Physical Exam Vital Signs: Last Vital Signs Pulse 76 07/10/23 13:43 BP 132/70 07/10/23 13:43 Pulse Ox 98 07/10/23 13:43 Oxygen Delivery Method Room Air 07/10/23 13:43 Const General: no acute distress and alert Nutritional Appearance: malnourished Orientation/consciousness: Other orientation findings ( oriented) HEENT Head: Yes atraumatic Eyes General: appearance normal, both eyes and all related structures Sclerae: sclerae normal EOM: EOMs intact bilaterally Neck Neck: Yes supple Lymphatic: no lymphadenopathy noted Resp Effort & Inspection: normal respiratory effort and no use of accessory muscles Auscultation: clear to auscultation bilaterally Cardio Rate: regular rate Rhythm: regular rhythm Heart sounds: no gallops, no murmurs and no rubs Skin General skin exam: other ( warm) Extrem General: No clubbing, No cyanosis and No edema Assessment & Plan Assessment & Plan (1) Asthma: Code(s): J45.909 - Unspecified asthma, uncomplicated Plan: Unable to tolerate BrezTri. Will switch to nebulized budesonide. Patient also appears to have neuropathic pain in her back and chest. (2) Environmental allergies: Code(s): Z91.09 - Other allergy status, other than to drugs and biological substances Plan: Patient is not interested in [employer]. Continue [employer]. Medications: New budesonide 0.5 mg inhalation Q12H 120 mL 6RF 30 days Discontinued jwfstmbwaq-zzmgbghb-jkzkqesauf 160-9-4.8 mcg/actuation (Breztri Aerosphere) Discontinued Reason: Doctor's Order 2 inhalations inhalation BID 1 ea 6RF 30 days Z91.09 - Other allergy status, other than to drugs and biological substances Coding Level of Care Code Est Pt Level 4 (88228) Diagnoses Asthma J45.909 Environmental allergies Z91.09
[2023-07-10 13:43] VITALS: BP 132/70; PULSE 76; O2SAT 98
== END 2023-07-10 14:05 | disposition home or self-care (01) ==
PROVIDERS: PCP Nurse Practitioner Family; Visit Provider Internal Medicine Pulmonary Disease
DX: J45.909 Unspecified asthma, uncomplicated (principal); Z91.09 Other allergy status, other than to drugs and biological substances
CPT/HCPCS: 99214

== ENCOUNTER → 2023-07-10 13:29 | Outpatient (BNVA) | payer OTHER, SELFPAY | PROVIDERS: PCP Nurse Practitioner Family; Visit Provider Internal Medicine Pulmonary Disease | DX: J45.909 Unspecified asthma, uncomplicated (principal); Z91.09 Other allergy status, other than to drugs and biological substances | CPT/HCPCS: 99212 ==

== ENCOUNTER 2023-07-16 09:37 | Outpatient (AMB) | payer OTHER, SELFPAY ==
--- NOTE | 2023-07-16 10:04 | A.OFFPC_ITS ---
Vital Signs 07/16/23 10:05 Height 4 ft 11 in Weight 119 lb 8 oz BMI 24.1 BP 132/86 Blood Pressure Location Lt brachial Position Sitting Pulse 60 Pulse Source Pulse Oximeter Pulse Oximetry (%) 100 Oxygen Delivery Method Room Air Intake Visit Reasons: 6 month follow up Intake Note: Pt is here to follow up for HTN,TSH,and Lipids Allergies Penicillins [PENICILLINS] Allergy (Intermediate, Verified 07/16/23 10:09) HIVES carbamazepine [From Tegretol] Allergy (Mild, Verified 07/16/23 10:09) HIVES diflunisal [From Dolobid] Allergy (Mild, Verified 07/16/23 10:09) HIVES erythromycin base [From Edwin-Tab] Allergy (Mild, Verified 07/16/23 10:09) HIVES phenytoin [From Dilantin] Allergy (Mild, Verified 07/16/23 10:09) RASH,HIVES piroxicam [From Feldene] Allergy (Mild, Verified 07/16/23 10:09) HIVES sulfamethoxazole [From Bactrim] Allergy (Mild, Verified 07/16/23 10:09) HIVES trimethoprim [From Bactrim] Allergy (Mild, Verified 07/16/23 10:09) HIVES valproic acid [From Depakene] Allergy (Mild, Verified 07/16/23 10:09) HIVES Depakene Allergy (Unknown, Verified 07/16/23 10:09) Rash hydrochlorothiazide [HYDROCHLOROTHIAZIDE] Allergy (Unknown, Verified 07/16/23 10:09) rash lisinopril [LISINOPRIL] Allergy (Unknown, Verified 07/16/23 10:09) rash penicillin V Allergy (Unknown, Verified 07/16/23 10:09) Rash Sulfa (Sulfonamide Antibiotics) Allergy (Unknown, Verified 07/16/23 10:09) Rash codeine [Codeine] Adverse Reaction (Intermediate, Verified 07/16/23 10:09) NAUSEA & VOMITING rash ENVIRONMENTAL Allergy (Intermediate, Uncoded 07/16/23 10:09) ASTHMA,LOSES VOICE TAPE,PLASTIC Allergy (Intermediate, Uncoded 07/16/23 10:09) RASH surgical tape Allergy (Unknown, Uncoded 07/16/23 10:09) unknown Medication List - Last Reconciled 07/16/23 by Case Duff, TRADES HELPER-BC albuterol sulfate 2.5 mg (3 mL) inhalation QID PRN 90 days albuterol sulfate 90 mcg/actuation (ProAir HFA) 2 puffs inhalation Q6H PRN aspirin (Adult Low Dose Aspirin) 81 mg PO DAILY atorvastatin 80 mg PO DAILY 90 days betamethasone dipropionate 0.05% 1 appl topical DAILY 14 days budesonide 0.5 mg inhalation Q12H 30 days gutjavndsf-bmtkuhgq-ptadhewdcy 160-9-4.8 mcg/actuation (Breztri Aerosphere) 2 inhalations inhalation BID cholecalciferol (vitamin D3) 50 mcg PO DAILY 90 days clonazepam 0.5 mg PO BID PRN 60 days ezetimibe 10 mg PO DAILY fludrocortisone 0.1 mg PO DAILY 90 days fluoxetine 40 mg PO DAILY 90 days fluticasone propion-salmeterol 250-50 mcg/dose (Wixela Inhub) 1 ea inhalation BID fluticasone propionate 50 mcg/actuation 1 spray intranasal DAILY 90 days folic acid 0.8 mg PO DAILY galcanezumab-gnlm (Emgality Pen) 120 mg subcut ONCE 30 days ibuprofen 600 mg PO TID PRN 30 days levothyroxine 25 mcg PO DAILY [Lifeline-Mobile unit As directed] magnesium oxide 400 mg PO BEDTIME 90 days meclizine 25 mg PO DAILY PRN 90 days montelukast 10 mg PO DAILY 90 days polyethylene glycol 3350 (Miralax) 17 grams PO DAILY PRN 90 days riboflavin (vitamin B2) 100 mg PO DAILY 90 days risedronate 35 mg PO QWEEK sumatriptan succinate take 1 tab at onset of headache; if no relief, may repeat 1 tab after at least 2 hrs; max = 2 tabs/24 hrs PO 30 days topiramate 100 mg PO BID 90 days Tobacco use date assessed: 07/16/23 Fall risk assessment: 2 + Falls in past year Last assessed Fall Risk: 07/16/23 Dental Screening Dental Screen Date: 07/16/23 Did you have a dental visit in the last 12 months?: No Did you have a dental problem in the last 6 months where you did not have access to dental care?: No Was dental information given to patient?: Patient has dentist HPI 6 month follow up HPI Details HTN: Blood pressure is stable. Dyslipidemia: On atorvastatin 80mg and zetia 10mg. Will order labs. Denies chest pain, shortness of breath, headache, dizziness, and blurred vision. Hx of vitamin D deficiency, will order labs. [facility] Medical History Hyperlipemia Osteoporosis CKD (chronic kidney disease) Hypothyroid Ataxic gait Seizures Asthma Depression Conversion disorder HTN (hypertension) Muscle weakness Hypothyroid Conversion disorder with attacks or seizures, acute episode, with psychological stressor Surgical History History of right knee surgery History of lobectomy of thyroid History of arthroscopy of right knee History of ankle surgery History of arthroscopy of left knee History of hysterectomy Family History Father CVD (cardiovascular disease) Stomach ulcer Cardiac arrest H/O heart bypass surgery Mother History of heart attack CHF (congestive heart failure) Lung cancer Diabetes mellitus High cholesterol HTN (hypertension) Hypothyroidism Sister Lung cancer Substance use disorder Brother Colitis Sister No problems noted. Sister Obstetric pulmonary blood clot embolism, antepartum Paternal Aunt Mental health disorder Substance use disorder Maternal Grandmother Mental health disorder Family/Other Substance use disorder Social History Household Members: Family Household Members Other:: brother, 2 cats Housing: House Alcohol intake: never Patient Tobacco Use Status: Never used Tobacco e-Cigarette/Vaping Use: Never Used Second Hand Smoke Exposure: No Current occupational status: disabled Cognitive needs: No Hearing needs: No Vision needs: No Questionnaire Thrive Questionnaire Date Thrive assessed: 02/09/22 AUDIT C Alcohol Use Questionnaire (AUDIT-C) 1. How often do you have a drink containing alcohol?: Never 3. How often do you have six or more drinks on one occasion?: Never Total Score: 0 KATHRINE-7 AMB Questionnaire KATHRINE-7 Date KATHRINE - 7 assessed: 02/09/22 Source: Developed by Drs. Mirza Corona, Jelena Walton, Arnoldo Gonzalez and colleagues, with an educational liu from [employer]. Review of Systems Const Reports as per HPI Physical exam (Primary Care) Vital Signs: Last Vital Signs Pulse 60 07/16/23 10:05 BP 132/86 07/16/23 10:05 Pulse Ox 100 07/16/23 10:05 Oxygen Delivery Method Room Air 07/16/23 10:05 BMI result Body Mass Index 24.1 Tobacco/Smoking Status: Tobacco use Status Tobacco use date assessed 07/16/23 07/16/23 10:22 Patient Tobacco Use Status Never used Tobacco 07/16/23 10:22 e-Cigarette/Vaping Use Never Used 07/16/23 10:22 Thrive Assessment: Date of Thrive Assessment Date Thrive assessed 02/09/22 07/16/23 10:22 Const Other: Pt not using walker today, gait is normal General: cooperative Orientation/consciousness: patient oriented x3 Neuro General: patient oriented x3 Psych Appearance: grossly normal Mental Status: mental status grossly normal Speech and movement: Normal speech and movement present Affect: normal affect Attitude: cooperative Thought process: Normal thought process present Thought content: Normal thought content present Insight: Good insight present (Psych) Judgement: Good judgement present (Psych) Assessment and Plan Assessment & Plan (1) HTN (hypertension): Code(s): I10 - Essential (primary) hypertension Plan: Labs ordered (2) Hyperlipemia: Code(s): E78.5 - Hyperlipidemia, unspecified Plan: Labs ordered (3) Vitamin D deficiency: Code(s): E55.9 - Vitamin D deficiency, unspecified Plan: Labs ordered Plan The patient agreed to the use of a electromedical service engineer for this encounter. Scribed for DANIELLA Rosen by Lulu Avila electromedical service engineer, on 07/16/2023 at 10:30 EST. Orders: Orders Complete Blood Count Auto Diff Today E78.5 - Hyperlipidemia, unspecified, I10 - Essential (primary) hypertension Comprehensive [place]. Panel Fast Today E78.5 - Hyperlipidemia, unspecified, I10 - Essential (primary) hypertension TSH reflex Free T4 Today E78.5 - Hyperlipidemia, unspecified, I10 - Essential (primary) hypertension Lipid Panel Today E78.5 - Hyperlipidemia, unspecified, I10 - Essential (primary) hypertension Vitamin D 25-OH Total Today E55.9 - Vitamin D deficiency, unspecified UA CC w/rflx Micro + Cult Today E78.5 - Hyperlipidemia, unspecified, I10 - Essential (primary) hypertension Coding Level of Care Code Est Pt Level 3 (25231) Diagnoses HTN (hypertension) I10 Hyperlipemia E78.5 Vitamin D deficiency E55.9
[2023-07-16 10:05] VITALS: BP 132/86; PULSE 60; O2SAT 100; BMI 24.1
== END 2023-07-16 10:46 | disposition home or self-care (01) ==
PROVIDERS: PCP Nurse Practitioner Family; Visit Provider Nurse Practitioner Family
DX: I10 Essential (primary) hypertension (principal); E78.5 Hyperlipidemia, unspecified; E55.9 Vitamin D deficiency, unspecified
CPT/HCPCS: 99213

== ENCOUNTER 2023-08-11 08:35 | Outpatient (REF) | payer OTHER, SELFPAY ==
[2023-08-11 11:47] LABS: MANUAL DIFF FLAG NO
[2023-08-11 11:59] LABS: Basophils Absolute Auto 0.1 X10*3/uL (0.0-0.2); Basophils Percent Auto 1.4 % (0-2); Eosinophils Absolute Auto 0.4 X10*3/uL (0.0-0.4); Eosinophils Percent Auto 8.5 % (0-4); Hematocrit 40.7 % (37.0-47.0); Hemoglobin 12.7 g/dl (12.0-16.0); Imm Gran Abs Auto 0.02 X10*3/uL (0.00-0.03); Imm Gran Pct Auto 0.5 % (0.0-0.4); Lymphocytes Absolute Auto 1.6 X10*3/uL (1.2-4.9); Lymphocytes Percent Auto 36.5 % (20-40); Mean Corpuscular HGB Conc 31.2 g/dl (31.0-35.0); Mean Corpuscular Hemoglobin 29.7 pg (27.0-33.0); Mean Corpuscular Volume 95.1 fL (80.0-98.0); Monocytes Absolute Auto 0.3 X10*3/uL (0.1-1.2); Monocytes Percent Auto 7.3 % (2-11); Neutrophils Percent Auto 45.8 % (45-73); Platelet Count 267 X10*3/uL (160-400); Red Blood Count 4.28 X10*6/uL (4.20-5.50); Red Cell Distribution Width 14.4 % (11.0-16.0); White Blood Count 4.4 X10*3/uL (4.8-10.8)
[2023-08-11 12:28] LABS: Alanine Aminotransferase 31 U/L (0-31); Albumin Level 3.7 g/dL (3.5-5.0); Alkaline Phosphatase 70 U/L (39-117); Anion Gap 9 (12-20); Aspartate Amino Transferase 41 U/L (5-31); Bilirubin Total 0.4 mg/dL (0.0-1.0); Blood Urea Nitrogen 12 mg/dL (9-16); Calcium 8.6 mg/dL (8.4-10.2); Carbon Dioxide 22 mmol/L (22-29); Chloride 112 mmol/L (96-108); Cholesterol 165 mg/dL (<200); Estimated Glomerular Filt Rate > 60; Glucose Fasting 95 mg/dL (60-99); HDL Cholesterol 72 mg/dL (>40); LDL Cholesterol Calculated 83 mg/dL (<100); Potassium 4.1 mmol/L (3.3-5.1); Sodium 139 mmol/L (135-145); Total Protein 6.3 g/dL (6.5-8.0); Triglycerides 54 mg/dL (<150)
[2023-08-11 12:44] LABS: TSH reflex Free T4 2.04 uIU/mL (0.32-4.0); Vitamin D 25-OH Total 43.5 ng/mL (>30)
[2023-08-11 15:27] LABS: Appearance Urine Clear; Color Urine Yellow; Glucose Urine UA Negative (Negative); Leukocyte Esterase Urine Negative (Negative); Nitrite Urine Negative (Negative); PH 6.5 (5.0-9.0); Specific Gravity - Urine <= 1.005 (1.005-1.025); Urine Blood Negative (Negative); Urine Ketones Negative (Negative); Urine Protein Negative (Neg-Trace)
== END 2023-08-11 08:36 | disposition home or self-care (01) ==
LOC: HO.HMGCLDS 08:35
PROVIDERS: PCP Nurse Practitioner Family; Visit Provider Nurse Practitioner Family
DX: I10 Essential (primary) hypertension (principal); E55.9 Vitamin D deficiency, unspecified; E78.5 Hyperlipidemia, unspecified
CPT/HCPCS: 36415; 80053; 80061; 81003; 82306; 84443; 85025

== ENCOUNTER 2023-08-23 08:34 | Outpatient (REF) | payer OTHER, SELFPAY ==
--- NOTE | ~2023-08-23 | US_ITS ---
EXAMINATION: US ABDOMEN COMPLETE CLINICAL INFORMATION: Abnormal levels of other serum enzymes. COMPARISON: CT abdomen and pelvis 03/06/2019. TECHNIQUE: Real-time imaging of the abdominal viscera. Limited visualization due to bowel gas. FINDINGS: PANCREAS: Limited visualization of pancreatic tail and head. Imaged portion of pancreatic body is unremarkable. ABDOMINAL AORTA: Nonaneurysmal. INFERIOR VENA CAVA: Visualized portions are normal. LIVER: Right hepatic 1.3 x 1.2 x 1.3 cm complex cyst. Prior CT scan demonstrated multiple subcentimeter low density liver lesions, the larger of which were felt to represent cysts and the smaller of which were indeterminate. Right hepatic 0.5 cm echogenic lesion, possibly representing a hemangioma, and not characterized on prior exams. Increased hepatic parenchymal heterogeneity and echogenicity could be associated with hepatocellular disease/hepatic steatosis and substantially limits visualization. Correlation with liver function tests and clinical exam recommended to determine further management. GALLBLADDER: No gallstones. No gallbladder wall thickening. COMMON BILE DUCT: Normal in caliber measuring 0.3 cm in diameter. RIGHT KIDNEY: Right renal 0.6 cm mid pole echogenic cortical focus, possibly representing an angiomyolipoma, and not characterized on prior exams. No hydronephrosis. No renal calculi. Limited visualization. The kidney measures 9.1 cm in maximum dimension. LEFT KIDNEY: No hydronephrosis. No renal calculi. Limited visualization. The kidney measures 9.1 cm in maximum dimension. SPLEEN: A 1.0 cm rounded soft tissue mass adjacent to the spleen is characteristic of a splenule. The spleen measures 7.5 cm in maximum dimension. FREE FLUID: None. US/US abdomen complete IMPRESSION: 1. Right hepatic 1.3 cm complex cyst. Prior CT scan demonstrated multiple subcentimeter low density liver lesions, the larger of which were felt to represent cysts and the smaller of which were indeterminate. Right hepatic 0.5 cm echogenic lesion, possibly representing a hemangioma, and not characterized on prior exams. 2. Increased hepatic parenchymal heterogeneity and echogenicity could be associated with hepatocellular disease/hepatic steatosis and substantially limits visualization. Correlation with liver function tests and clinical exam recommended to determine further management. 3. Right renal 0.6 cm mid pole echogenic cortical focus, possibly representing an angiomyolipoma, and not characterized on prior exams. 4. A 1.0 cm rounded soft tissue mass adjacent to the spleen is characteristic of a splenule.
[2023-08-24 04:20] LABS: HBc Num1 0.13 S/CO (0.00-0.79); HBsAGNum1 0.35 S/CO (0.00-0.99); Hepatitis A Antibody IgM 0.18 Index (0-0.79); Hepatitis B Core Antibody Nonreactive (Nonreactive); Hepatitis B Surface Antigen Negative (Negative); ~HepC Num1 0.11 S/CO (0.00-0.79); ~Hepatitis A Antibody IgM Nonreactive (Nonreactive); ~Hepatitis B Surface Antibody NONREACTIVE (Nonreactive); ~Hepatitis C Antibody Nonreactive (Nonreactive)
== END 2023-08-23 08:35 | disposition home or self-care (01) ==
LOC: HO.HMGCX 08:34
PROVIDERS: PCP Nurse Practitioner Family; Visit Provider Nurse Practitioner Family
DX: R74.8 Abnormal levels of other serum enzymes (principal)
CPT/HCPCS: 36415; 76700; 86704; 86706; 86709; 86803; 87340

== ENCOUNTER 2023-08-23 09:34 | Outpatient (AMB) | payer OTHER, SELFPAY ==
[2023-08-23 09:36] VITALS: BP 118/68; PULSE 74; TEMP 36.5; O2SAT 99; BMI 24.0
--- NOTE | 2023-08-23 09:36 | MHC.OFFWIV ---
Intake Vital Signs 08/23/23 09:36 Height 4 ft 11 in Weight 119 lb BMI 24.0 BP 118/68 Blood Pressure Location Lt brachial Position Sitting Pulse 74 Pulse Source Pulse Oximeter Temp 97.7 F Temp Source Temporal Artery Scan Pulse Oximetry (%) 99 Oxygen Delivery Method Room Air Intake Visit Reasons: EP lightheadedness Intake Note: pt is here today for light headedness started today Patient Tobacco Use Status: Never used Tobacco Allergies Penicillins [PENICILLINS] Allergy (Intermediate, Verified 08/23/23 09:37) HIVES carbamazepine [From Tegretol] Allergy (Mild, Verified 08/23/23 09:37) HIVES diflunisal [From Dolobid] Allergy (Mild, Verified 08/23/23 09:37) HIVES erythromycin base [From Edwin-Tab] Allergy (Mild, Verified 08/23/23 09:37) HIVES phenytoin [From Dilantin] Allergy (Mild, Verified 08/23/23 09:37) RASH,HIVES piroxicam [From Feldene] Allergy (Mild, Verified 08/23/23 09:37) HIVES sulfamethoxazole [From Bactrim] Allergy (Mild, Verified 08/23/23 09:37) HIVES trimethoprim [From Bactrim] Allergy (Mild, Verified 08/23/23 09:37) HIVES valproic acid [From Depakene] Allergy (Mild, Verified 08/23/23 09:37) HIVES Depakene Allergy (Unknown, Verified 08/23/23 09:37) Rash hydrochlorothiazide [HYDROCHLOROTHIAZIDE] Allergy (Unknown, Verified 08/23/23 09:37) rash lisinopril [LISINOPRIL] Allergy (Unknown, Verified 08/23/23 09:37) rash penicillin V Allergy (Unknown, Verified 08/23/23 09:37) Rash Sulfa (Sulfonamide Antibiotics) Allergy (Unknown, Verified 08/23/23 09:37) Rash codeine [Codeine] Adverse Reaction (Intermediate, Verified 08/23/23 09:37) NAUSEA & VOMITING rash ENVIRONMENTAL Allergy (Intermediate, Uncoded 07/16/23 10:09) ASTHMA,LOSES VOICE TAPE,PLASTIC Allergy (Intermediate, Uncoded 07/16/23 10:09) RASH surgical tape Allergy (Unknown, Uncoded 07/16/23 10:09) unknown Do you need a note to return to daycare/school/sports/work: No HPI HPI Comments History of Present Illness Details 68 y/o female patient who presents to walk in clinic with c/o feeling dizzy and lightheadedness this morning. Pt has h/o Vertigo and usually takes medicine for this, but reports running out of refills for 2 days now. Denies any URI symptoms. Pt asking for medication refill. [facility] Medical History Hyperlipemia Osteoporosis CKD (chronic kidney disease) Hypothyroid Ataxic gait Seizures Asthma Depression Conversion disorder HTN (hypertension) Muscle weakness Hypothyroid Conversion disorder with attacks or seizures, acute episode, with psychological stressor Surgical History History of right knee surgery History of lobectomy of thyroid History of arthroscopy of right knee History of ankle surgery History of arthroscopy of left knee History of hysterectomy Family History Father CVD (cardiovascular disease) Stomach ulcer Cardiac arrest H/O heart bypass surgery Mother History of heart attack CHF (congestive heart failure) Lung cancer Diabetes mellitus High cholesterol HTN (hypertension) Hypothyroidism Sister Lung cancer Substance use disorder Brother Colitis Sister No problems noted. Sister Obstetric pulmonary blood clot embolism, antepartum Paternal Aunt Mental health disorder Substance use disorder Maternal Grandmother Mental health disorder Family/Other Substance use disorder Social History Household Members: Family Household Members Other:: brother, 2 cats Housing: House Alcohol intake: never Patient Tobacco Use Status: Never used Tobacco e-Cigarette/Vaping Use: Never Used Second Hand Smoke Exposure: No Current occupational status: disabled Cognitive needs: No Hearing needs: No Vision needs: No Review of Systems Const All systems reviewed & are unremarkable except as noted in HPI and below Physical Exam Vital Signs: Last Vital Signs Temp 97.7 F 08/23/23 09:36 Pulse 74 08/23/23 09:36 BP 118/68 08/23/23 09:36 Pulse Ox 99 08/23/23 09:36 Oxygen Delivery Method Room Air 08/23/23 09:36 BMI result Body Mass Index 24.0 Const General: comfortable and no acute distress Nutritional Appearance: thin Orientation/consciousness: patient oriented x3 HEENT Head: Yes normocephalic Ears: external ears normal and TM's normal bilaterally General nose exam: Normal nasal mucous membranes and turbinates present Face and sinus: Yes sinuses nontender Mouth: moist mucous membranes Throat: Yes posterior oropharynx normal Eyes Pupils: Equal, round and reactive pupils present Resp Effort & Inspection: normal respiratory effort and able to speak in complete sentences Auscultation: clear to auscultation bilaterally, no crackles, no rales, no rhonchi and no wheezes Cardio Rate: regular rate Rhythm: regular rhythm Neuro General: patient oriented x3 and moves all extremities Cranial nerves: Yes Equal, round and reactive pupils present Gait exam (Neuro): Staggering gait present Psych Other: Appears lethargic, irritated and unpleasant. Speech and movement: Clear speech present Assessment & Plan Assessment & Plan (1) Dizziness: Code(s): R42 - Dizziness and giddiness Plan: - Vitals and exam WNL today - Refilled Meclizine - F/U with PCP Medications: Changed From meclizine 25 mg PO DAILY 90 days PRN 90 tabs 0RF dizziness R42 - Dizziness and giddiness To meclizine 25 mg PO DAILY PRN 60 tabs 0RF dizziness R42 - Dizziness and giddiness Coding Level of Care Code Est Pt Level 3 (03295) Diagnoses Dizziness R42 Time Spent (min) 15
== END 2023-08-23 11:57 | disposition home or self-care (01) ==
PROVIDERS: PCP Nurse Practitioner Family; Visit Provider Nurse Practitioner Family
DX: R42 Dizziness and giddiness (principal)
CPT/HCPCS: 99213

== ENCOUNTER 2023-10-03 09:08 | Outpatient (AMB) | payer OTHER, SELFPAY ==
[2023-10-03 09:46] VITALS: BP 118/70; PULSE 97; TEMP 37.1; O2SAT 97; BMI 24.6
--- NOTE | 2023-10-03 09:46 | MHC.OFFWIV ---
Intake Vital Signs 10/03/23 09:46 Height 4 ft 11 in Weight 122 lb BMI 24.6 BP 118/70 Blood Pressure Location Lt brachial Pulse 97 Pulse Source Pulse Oximeter Temp 98.8 F Temp Source Temporal Artery Scan Pulse Oximetry (%) 97 Oxygen Delivery Method Room Air Intake Visit Reasons: EP Sore throat, blocked ears (masked) Intake Note: pt is here today for sore throat blocked ears started 2 weeks ago Patient Tobacco Use Status: Never used Tobacco Allergies Penicillins [PENICILLINS] Allergy (Intermediate, Verified 10/03/23 10:09) HIVES carbamazepine [From Tegretol] Allergy (Mild, Verified 10/03/23 10:09) HIVES diflunisal [From Dolobid] Allergy (Mild, Verified 10/03/23 10:09) HIVES erythromycin base [From Edwin-Tab] Allergy (Mild, Verified 10/03/23 10:09) HIVES phenytoin [From Dilantin] Allergy (Mild, Verified 10/03/23 10:09) RASH,HIVES piroxicam [From Feldene] Allergy (Mild, Verified 10/03/23 10:09) HIVES sulfamethoxazole [From Bactrim] Allergy (Mild, Verified 10/03/23 10:09) HIVES trimethoprim [From Bactrim] Allergy (Mild, Verified 10/03/23 10:09) HIVES valproic acid [From Depakene] Allergy (Mild, Verified 10/03/23 10:09) HIVES Depakene Allergy (Unknown, Verified 10/03/23 10:09) Rash hydrochlorothiazide [HYDROCHLOROTHIAZIDE] Allergy (Unknown, Verified 10/03/23 10:09) rash lisinopril [LISINOPRIL] Allergy (Unknown, Verified 10/03/23 10:09) rash penicillin V Allergy (Unknown, Verified 10/03/23 10:09) Rash Sulfa (Sulfonamide Antibiotics) Allergy (Unknown, Verified 10/03/23 10:09) Rash codeine [Codeine] Adverse Reaction (Intermediate, Verified 10/03/23 10:09) NAUSEA & VOMITING rash ENVIRONMENTAL Allergy (Intermediate, Uncoded 10/03/23 10:09) ASTHMA,LOSES VOICE TAPE,PLASTIC Allergy (Intermediate, Uncoded 10/03/23 10:09) RASH surgical tape Allergy (Unknown, Uncoded 10/03/23 10:09) unknown Medication List - Last Reconciled 10/03/23 by Jamar Martin MD albuterol sulfate 2.5 mg (3 mL) inhalation QID PRN 90 days albuterol sulfate 90 mcg/actuation (ProAir HFA) 2 puffs inhalation Q6H PRN aspirin (Adult Low Dose Aspirin) 81 mg PO DAILY atorvastatin 80 mg PO DAILY 90 days betamethasone dipropionate 0.05% 1 appl topical DAILY 14 days budesonide 0.5 mg inhalation Q12H 30 days ctkwnxenzk-apkssnoe-rldufndveb 160-9-4.8 mcg/actuation (Breztri Aerosphere) 2 inhalations inhalation BID cholecalciferol (vitamin D3) 50 mcg PO DAILY 90 days clonazepam 0.5 mg PO BID PRN 60 days ezetimibe 10 mg PO DAILY fludrocortisone 0.1 mg PO DAILY 90 days fluoxetine 40 mg PO DAILY 90 days fluticasone propion-salmeterol 250-50 mcg/dose (Wixela Inhub) 1 ea inhalation BID fluticasone propionate 50 mcg/actuation 1 spray intranasal DAILY 90 days folic acid 0.8 mg PO DAILY galcanezumab-gnlm (Emgality Pen) 120 mg subcut ONCE 30 days ibuprofen 600 mg PO TID PRN 30 days levothyroxine 25 mcg PO DAILY [Lifeline-Mobile unit As directed] magnesium oxide 400 mg PO BEDTIME 90 days meclizine 25 mg PO DAILY PRN montelukast 10 mg PO DAILY 90 days polyethylene glycol 3350 (Miralax) 17 grams PO DAILY PRN 90 days riboflavin (vitamin B2) 100 mg PO DAILY 90 days risedronate 35 mg PO QWEEK sumatriptan succinate take 1 tab at onset of headache; if no relief, may repeat 1 tab after at least 2 hrs; max = 2 tabs/24 hrs PO 30 days topiramate 100 mg PO BID 90 days Do you need a note to return to daycare/school/sports/work: No HPI EP Sore throat, blocked ears (masked) HPI Details Patient presents for a sick visit. Reporting symptoms of sinus congestion, sore throat and difficulty swallowing. Low-grade fever. No family member is sick. No recent travel. Patient reports symptoms of malaise and fatigue. Patient lives with her brother was diagnosed with COVID illness recently. [facility] Medical History Hyperlipemia Osteoporosis CKD (chronic kidney disease) Hypothyroid Ataxic gait Seizures Asthma Depression Conversion disorder HTN (hypertension) Muscle weakness Hypothyroid Conversion disorder with attacks or seizures, acute episode, with psychological stressor Surgical History History of right knee surgery History of lobectomy of thyroid History of arthroscopy of right knee History of ankle surgery History of arthroscopy of left knee History of hysterectomy Family History Father CVD (cardiovascular disease) Stomach ulcer Cardiac arrest H/O heart bypass surgery Mother History of heart attack CHF (congestive heart failure) Lung cancer Diabetes mellitus High cholesterol HTN (hypertension) Hypothyroidism Sister Lung cancer Substance use disorder Brother Colitis Sister No problems noted. Sister Obstetric pulmonary blood clot embolism, antepartum Paternal Aunt Mental health disorder Substance use disorder Maternal Grandmother Mental health disorder Family/Other Substance use disorder Social History Household Members: Family Household Members Other:: brother, 2 cats Housing: House Alcohol intake: never Patient Tobacco Use Status: Never used Tobacco e-Cigarette/Vaping Use: Never Used Second Hand Smoke Exposure: No Current occupational status: disabled Cognitive needs: No Hearing needs: No Vision needs: No Physical Exam Vital Signs: Last Vital Signs Temp 98.8 F 10/03/23 09:46 Pulse 97 10/03/23 09:46 BP 118/70 10/03/23 09:46 Pulse Ox 97 10/03/23 09:46 Oxygen Delivery Method Room Air 10/03/23 09:46 BMI result Body Mass Index 24.6 Const General: cooperative and healthy appearing Nutritional Appearance: well nourished Orientation/consciousness: patient oriented x3 Limitations: no limitations HEENT Head: Yes normal to inspection Eyes General: appearance normal, both eyes and all related structures Neck Neck: Yes normal visual inspection Chest Chest palpation & inspection: normal palpation of entire chest wall Resp Effort & Inspection: normal respiratory effort Neuro General: patient oriented x3 Results AMB Rapid Strep AMB Rapid Strep Negative Last Edit by Mayra Dowell MA on 10/03/23 10:00 Results Reviewed Results Reviewed: Laboratory Last Values Strep Scn [facility] Clinic Negative 10/03/23 09:59 Assessment & Plan Assessment & Plan (1) Upper respiratory tract infection: Code(s): J06.9 - Acute upper respiratory infection, unspecified Plan: Paxlovid initiated. Covid testing done. Will call with results. Advised to use the inhalers. If sx do not improve, to follow up here., Coding Level of Care Code Est Pt Level 3 (36836) Diagnoses Upper respiratory tract infection J06.9
== END 2023-10-03 10:44 | disposition home or self-care (01) ==
PROVIDERS: PCP Nurse Practitioner Family; Visit Provider Internal Medicine
DX: J06.9 Acute upper respiratory infection, unspecified (principal)
CPT/HCPCS: 99213

== ENCOUNTER 2023-10-03 13:48 | Outpatient (REF) | payer OTHER, SELFPAY ==
[2023-10-03 15:30] LABS: Influenza A PCR NEGATIVE (Negative); Influenza B PCR NEGATIVE (Negative); Resp Syncy Virus RNA Qual PCR NEGATIVE (Negative); SARS COV2 PCR INHOUSE POSITIVE (Negative)
== END 2023-10-03 13:49 | disposition home or self-care (01) ==
LOC: HO.HMGCLNP 13:48
PROVIDERS: Visit Provider Internal Medicine
DX: R43.9 Unspecified disturbances of smell and taste (principal); J06.9 Acute upper respiratory infection, unspecified
CPT/HCPCS: 0241U

== ENCOUNTER 2023-10-19 08:07 | Outpatient (AMB) | payer OTHER, SELFPAY ==
--- NOTE | 2023-10-19 08:17 | AM.OFFWIN_ITS ---
Intake Vital Signs 10/19/23 08:18 Height 4 ft 11 in Weight 125 lb 8 oz BMI 25.3 BP 122/70 Blood Pressure Location Rt brachial Position Sitting Pulse 62 Pulse Source Pulse Oximeter Temp 97.6 F Temp Source Temporal Artery Scan Pulse Oximetry (%) 100 Oxygen Delivery Method Room Air Intake Visit Reasons: EST/ear & throat irritation (lobby) Intake Note: Pt presents to the office today for c/o itchy ears. She states her right is worse than her left. She also states she is having an itchy throat as well. She states this all started when she was diagnosed with covid at the end of September. Patient Tobacco Use Status: Never used Tobacco Allergies Penicillins [PENICILLINS] Allergy (Intermediate, Verified 10/19/23 08:21) HIVES carbamazepine [From Tegretol] Allergy (Mild, Verified 10/19/23 08:21) HIVES diflunisal [From Dolobid] Allergy (Mild, Verified 10/19/23 08:21) HIVES erythromycin base [From Edwin-Tab] Allergy (Mild, Verified 10/19/23 08:21) HIVES phenytoin [From Dilantin] Allergy (Mild, Verified 10/19/23 08:21) RASH,HIVES piroxicam [From Feldene] Allergy (Mild, Verified 10/19/23 08:21) HIVES sulfamethoxazole [From Bactrim] Allergy (Mild, Verified 10/19/23 08:21) HIVES trimethoprim [From Bactrim] Allergy (Mild, Verified 10/19/23 08:21) HIVES valproic acid [From Depakene] Allergy (Mild, Verified 10/19/23 08:21) HIVES Depakene Allergy (Unknown, Verified 10/19/23 08:21) Rash hydrochlorothiazide [HYDROCHLOROTHIAZIDE] Allergy (Unknown, Verified 10/19/23 08:21) rash lisinopril [LISINOPRIL] Allergy (Unknown, Verified 10/19/23 08:21) rash penicillin V Allergy (Unknown, Verified 10/19/23 08:21) Rash Sulfa (Sulfonamide Antibiotics) Allergy (Unknown, Verified 10/19/23 08:21) Rash codeine [Codeine] Adverse Reaction (Intermediate, Verified 10/19/23 08:21) NAUSEA & VOMITING rash ENVIRONMENTAL Allergy (Intermediate, Uncoded 10/19/23 08:21) ASTHMA,LOSES VOICE TAPE,PLASTIC Allergy (Intermediate, Uncoded 10/19/23 08:21) RASH surgical tape Allergy (Unknown, Uncoded 10/19/23 08:21) unknown HPI HPI Comments History of Present Illness Details 68 y/o female patient who presents to [facility] in clinic with c/o URI symptoms since September. She was diagnosed with COVID-19 infection back in September dshe never felt any body after that. C/o runny nose, sneezing, nasal congestion, dry tearing eyes and sore-throat. [facility] Medical History Hyperlipemia Osteoporosis CKD (chronic kidney disease) Hypothyroid Ataxic gait Seizures Asthma Depression Conversion disorder HTN (hypertension) Muscle weakness Hypothyroid Conversion disorder with attacks or seizures, acute episode, with psychological stressor Surgical History History of right knee surgery History of lobectomy of thyroid History of arthroscopy of right knee History of ankle surgery History of arthroscopy of left knee History of hysterectomy Family History Father CVD (cardiovascular disease) Stomach ulcer Cardiac arrest H/O heart bypass surgery Mother History of heart attack CHF (congestive heart failure) Lung cancer Diabetes mellitus High cholesterol HTN (hypertension) Hypothyroidism Sister Lung cancer Substance use disorder Brother Colitis Sister No problems noted. Sister Obstetric pulmonary blood clot embolism, antepartum Paternal Aunt Mental health disorder Substance use disorder Maternal Grandmother Mental health disorder Family/Other Substance use disorder Social History Household Members: Family Household Members Other:: brother, 2 cats Housing: House Alcohol intake: never Patient Tobacco Use Status: Never used Tobacco e-Cigarette/Vaping Use: Never Used Second Hand Smoke Exposure: No Current occupational status: disabled Cognitive needs: No Hearing needs: No Vision needs: No Review of Systems Const All systems reviewed & are unremarkable except as noted in HPI and below Physical Exam Vital Signs: Last Vital Signs Temp 97.6 F 10/19/23 08:18 Pulse 62 10/19/23 08:18 BP 122/70 10/19/23 08:18 Pulse Ox 100 10/19/23 08:18 Oxygen Delivery Method Room Air 10/19/23 08:18 BMI result Body Mass Index 25.3 Const General: comfortable and no acute distress Orientation/consciousness: patient oriented x3 HEENT Head: Yes normocephalic Ears: external ears normal and TM abnormal bulging and with fluid behind the TM bilateral; not with effusion, not erythematous, not perforated and not retracted General nose exam: Abnormal mucous membranes and turbinates present boggy and er ythematous and Nasal discharge present Face and sinus: Yes sinuses nontender Mouth: moist mucous membranes Resp Effort & Inspection: normal respiratory effort and able to speak in complete sentences Auscultation: clear to auscultation bilaterally, no crackles, no rales, no rhonc hi and no wheezes Cardio Rate: regular rate Rhythm: regular rhythm Neuro General: patient oriented x3 Results AMB Rapid Strep AMB Rapid Strep Negative Last Edit by Debo Hoyos CMA on 10/19/23 08:32 Results Reviewed Results Reviewed: Laboratory Last Values Strep Scn Rapid Clinic Negative 10/19/23 08:32 Assessment & Plan Assessment & Plan (1) Allergic rhinitis: Code(s): J30.9 - Allergic rhinitis, unspecified Qualifiers: Allergic rhinitis seasonality: seasonal Allergic rhinitis trigger: unspecified Qualified Code(s): J30.2 - Other seasonal allergic rhinitis Plan: - Take medications as prescribed. - Rest and hydrate with warm fluids. Orders: Orders AMB Rapid Strep Screen Today Z13.9 - Encounter for screening, unspecified Medications: New oxymetazoline 0.05% (Afrin (oxymetazoline)) 2 sprays intranasal Q12H PRN 15 mL 0RF nasal congestion 3 days J30.2 - Other seasonal allergic rhinitis pseudoephedrine HCl ER (Sudafed 12 Hour) 120 mg PO Q12H PRN 20 tabs 0RF nasal congestion J30.2 - Other seasonal allergic rhinitis Coding Level of Care Code Est Pt Level 3 (10888) Diagnoses Seasonal allergic rhinitis, unspecified trigger J30.2 Allergic rhinitis seasonality: seasonal Allergic rhinitis trigger: unspecified Time Spent (min) 15
[2023-10-19 08:18] VITALS: BP 122/70; PULSE 62; TEMP 36.4; O2SAT 100; BMI 25.3
== END 2023-10-19 08:52 | disposition home or self-care (01) ==
PROVIDERS: PCP Nurse Practitioner Family; Visit Provider Nurse Practitioner Family
DX: J30.2 Other seasonal allergic rhinitis (principal); J02.9 Acute pharyngitis, unspecified
CPT/HCPCS: 87880; 99213

== ENCOUNTER 2023-11-14 12:22 | Outpatient (AMB) | payer OTHER, SELFPAY ==
[2023-11-14 12:54] VITALS: BP 111/62; PULSE 79; O2SAT 100
--- NOTE | 2023-11-14 12:54 | A.OFFVIS_ITS ---
Vital Signs 11/14/23 12:54 Height 4 ft 11 in BP 111/62 Blood Pressure Location Rt brachial Position Sitting Pulse 79 Pulse Source Doppler Pulse Oximetry (%) 100 Oxygen Delivery Method Room Air Intake Visit Reasons: Shortness of breath Allergies Penicillins [PENICILLINS] Allergy (Intermediate, Verified 11/14/23 13:00) HIVES carbamazepine [From Tegretol] Allergy (Mild, Verified 11/14/23 13:00) HIVES diflunisal [From Dolobid] Allergy (Mild, Verified 11/14/23 13:00) HIVES erythromycin base [From Edwin-Tab] Allergy (Mild, Verified 11/14/23 13:00) HIVES phenytoin [From Dilantin] Allergy (Mild, Verified 11/14/23 13:00) RASH,HIVES piroxicam [From Feldene] Allergy (Mild, Verified 11/14/23 13:00) HIVES sulfamethoxazole [From Bactrim] Allergy (Mild, Verified 11/14/23 13:00) HIVES trimethoprim [From Bactrim] Allergy (Mild, Verified 11/14/23 13:00) HIVES valproic acid [From Depakene] Allergy (Mild, Verified 11/14/23 13:00) HIVES Depakene Allergy (Unknown, Verified 11/14/23 13:00) Rash hydrochlorothiazide [HYDROCHLOROTHIAZIDE] Allergy (Unknown, Verified 11/14/23 13:00) rash lisinopril [LISINOPRIL] Allergy (Unknown, Verified 11/14/23 13:00) rash penicillin V Allergy (Unknown, Verified 11/14/23 13:00) Rash Sulfa (Sulfonamide Antibiotics) Allergy (Unknown, Verified 11/14/23 13:00) Rash codeine [Codeine] Adverse Reaction (Intermediate, Verified 11/14/23 13:00) NAUSEA & VOMITING rash ENVIRONMENTAL Allergy (Intermediate, Uncoded 10/19/23 08:21) ASTHMA,LOSES VOICE TAPE,PLASTIC Allergy (Intermediate, Uncoded 10/19/23 08:21) RASH surgical tape Allergy (Unknown, Uncoded 10/19/23 08:21) unknown HPI HPI Shortness of breath: Details: 68-year-old lady, nonsmoker, Now followed for asthma and environmental allergies. Patient states that she did not get nebulized budesonide so she continued on Wixela and albuterol MDI / nebs with reasonable control of her symptoms. She denies any recent exacerbations. Patient states that she did get COVID again in September of 2023, but now has recovered essentially to baseline. [facility] Medical History Hyperlipemia Osteoporosis CKD (chronic kidney disease) Hypothyroid Ataxic gait Seizures Asthma Depression Conversion disorder HTN (hypertension) Muscle weakness Hypothyroid Conversion disorder with attacks or seizures, acute episode, with psychological stressor Surgical History History of right knee surgery History of lobectomy of thyroid History of arthroscopy of right knee History of ankle surgery History of arthroscopy of left knee History of hysterectomy Family History Father CVD (cardiovascular disease) Stomach ulcer Cardiac arrest H/O heart bypass surgery Mother History of heart attack CHF (congestive heart failure) Lung cancer Diabetes mellitus High cholesterol HTN (hypertension) Hypothyroidism Sister Lung cancer Substance use disorder Brother Colitis Sister No problems noted. Sister Obstetric pulmonary blood clot embolism, antepartum Paternal Aunt Mental health disorder Substance use disorder Maternal Grandmother Mental health disorder Family/Other Substance use disorder Social History Household Members: Family Household Members Other:: brother, 2 cats Housing: House Alcohol intake: never Patient Tobacco Use Status: Never used Tobacco e-Cigarette/Vaping Use: Never Used Second Hand Smoke Exposure: No Current occupational status: disabled Cognitive needs: No Hearing needs: No Vision needs: No Review of Systems Const Denies daytime sleepiness, Denies excessive sweating, Denies fatigue, Denies fever(s), Denies lethargy, Denies malaise, Denies night sweats, Denies snoring and Denies weight loss Eyes Denies blurry vision and Denies itchy eyes ENT Denies nasal congestion, Denies post nasal drip, Denies sinus pain, Denies sinus pressure and Denies other ( Thrush) Card Denies chest pain, Denies pedal edema, Denies dyspnea, Denies orthopnea and Denies paroxysmal nocturnal dyspnea Resp Denies cough, Denies hemoptysis, Denies excessive phlegm production, Denies dyspnea, Denies snoring and Denies wheezing GI Denies abdominal pain and Denies heartburn Musc Denies myalgias, Denies arthralgias and Denies joint swelling Skin/Breast Denies rash Neuro Denies memory loss and Denies seizure-like activity Psych Denies abnormal sleep pattern, Denies anxiety and Denies memory loss Endo Denies excessive sweating, Denies fatigue and Denies heat intolerance Sherman/Lymph Denies easy bruising Aller/Immun Denies itchy eyes, Denies seasonal rhinorrhea and Denies wheezing Physical Exam Vital Signs: Last Vital Signs Pulse 79 11/14/23 12:54 BP 111/62 11/14/23 12:54 Pulse Ox 100 11/14/23 12:54 Oxygen Delivery Method Room Air 11/14/23 12:54 Const General: no acute distress and alert Nutritional Appearance: not obese Orientation/consciousness: Other orientation findings ( oriented) HEENT Head: Yes atraumatic Eyes General: appearance normal, both eyes and all related structures Sclerae: sclerae normal EOM: EOMs intact bilaterally Neck Neck: Yes supple Lymphatic: no lymphadenopathy noted Resp Effort & Inspection: normal respiratory effort and no use of accessory muscles Auscultation: clear to auscultation bilaterally Cardio Rate: regular rate Rhythm: regular rhythm Heart sounds: no gallops, no murmurs and no rubs Skin General skin exam: other ( warm) Extrem General: No clubbing, No cyanosis and No edema Assessment & Plan Assessment & Plan (1) Asthma: Code(s): J45.909 - Unspecified asthma, uncomplicated Category: Medical Plan: Well controlled on current regimen of Wixela, albuterol MDI /nebs. Continue current regimen. (2) Environmental allergies: Code(s): Z91.09 - Other allergy status, other than to drugs and biological substances Category: Medical Plan: Well controlled on Flonase and Singulair. Continue current regimen. Coding Level of Care Code Est Pt Level 4 (78644) Diagnoses Asthma J45.909 Environmental allergies Z91.09
== END 2023-11-14 13:23 | disposition home or self-care (01) ==
PROVIDERS: PCP Nurse Practitioner Family; Visit Provider Internal Medicine Pulmonary Disease
DX: J45.909 Unspecified asthma, uncomplicated (principal); Z91.09 Other allergy status, other than to drugs and biological substances
CPT/HCPCS: 99214

== ENCOUNTER → 2023-11-14 12:22 | Outpatient (BNVA) | payer OTHER, SELFPAY | PROVIDERS: PCP Nurse Practitioner Family; Visit Provider Internal Medicine Pulmonary Disease | DX: J45.909 Unspecified asthma, uncomplicated (principal); Z91.09 Other allergy status, other than to drugs and biological substances | CPT/HCPCS: 99212 ==

== ENCOUNTER 2023-11-19 13:25 | Outpatient (AMB) | payer OTHER, SELFPAY ==
--- NOTE | 2023-11-19 13:29 | A.OFFVIS_ITS ---
Vital Signs 11/19/23 13:45 Height 4 ft 11 in Intake Visit Reasons: 3 mnts f/u appt-CONF Intake Note: Patient presents for 3 month follow up. patient has no concerns today. Allergies Penicillins [PENICILLINS] Allergy (Intermediate, Verified 11/19/23 13:42) HIVES carbamazepine [From Tegretol] Allergy (Mild, Verified 11/19/23 13:42) HIVES diflunisal [From Dolobid] Allergy (Mild, Verified 11/19/23 13:42) HIVES erythromycin base [From Edwin-Tab] Allergy (Mild, Verified 11/19/23 13:42) HIVES phenytoin [From Dilantin] Allergy (Mild, Verified 11/19/23 13:42) RASH,HIVES piroxicam [From Feldene] Allergy (Mild, Verified 11/19/23 13:42) HIVES sulfamethoxazole [From Bactrim] Allergy (Mild, Verified 11/19/23 13:42) HIVES trimethoprim [From Bactrim] Allergy (Mild, Verified 11/19/23 13:42) HIVES valproic acid [From Depakene] Allergy (Mild, Verified 11/19/23 13:42) HIVES Depakene Allergy (Unknown, Verified 11/19/23 13:42) Rash hydrochlorothiazide [HYDROCHLOROTHIAZIDE] Allergy (Unknown, Verified 11/19/23 13:42) rash lisinopril [LISINOPRIL] Allergy (Unknown, Verified 11/19/23 13:42) rash penicillin V Allergy (Unknown, Verified 11/19/23 13:42) Rash Sulfa (Sulfonamide Antibiotics) Allergy (Unknown, Verified 11/19/23 13:42) Rash codeine [Codeine] Adverse Reaction (Intermediate, Verified 11/19/23 13:42) NAUSEA & VOMITING rash ENVIRONMENTAL Allergy (Intermediate, Uncoded 11/19/23 13:42) ASTHMA,LOSES VOICE TAPE,PLASTIC Allergy (Intermediate, Uncoded 11/19/23 13:42) RASH surgical tape Allergy (Unknown, Uncoded 11/19/23 13:42) unknown Medication List - Last Reconciled 11/19/23 by PRINCE Villalobos albuterol sulfate 2.5 mg (3 mL) inhalation QID PRN 90 days albuterol sulfate 90 mcg/actuation (ProAir HFA) 2 puffs inhalation Q6H PRN aspirin (Adult Low Dose Aspirin) 81 mg PO DAILY atorvastatin 80 mg PO DAILY 90 days betamethasone dipropionate 0.05% 1 appl topical DAILY 14 days cholecalciferol (vitamin D3) 50 mcg PO DAILY 90 days clonazepam 0.5 mg PO BID PRN 60 days ezetimibe 10 mg PO DAILY fludrocortisone 0.1 mg PO DAILY 90 days fluoxetine 60 mg (3 x 20 mg) PO DAILY 90 days fluticasone propion-salmeterol 250-50 mcg/dose (Wixela Inhub) 1 ea inhalation BID fluticasone propionate 50 mcg/actuation 1 spray intranasal DAILY 90 days folic acid 0.8 mg PO DAILY galcanezumab-gnlm (Emgality Pen) 120 mg subcut ONCE 30 days ibuprofen 600 mg PO TID PRN 30 days levothyroxine 25 mcg PO DAILY [[employer] unit As directed] magnesium oxide 400 mg PO BEDTIME 90 days meclizine 25 mg PO DAILY PRN montelukast 10 mg PO DAILY 90 days oxymetazoline 0.05% (Afrin (oxymetazoline)) 2 sprays intranasal Q12H PRN 3 days polyethylene glycol 3350 (Miralax) 17 grams PO DAILY PRN 90 days pseudoephedrine HCl ER (Sudafed 12 Hour) 120 mg PO Q12H PRN riboflavin (vitamin B2) 100 mg PO DAILY 90 days risedronate 35 mg PO QWEEK sumatriptan succinate take 1 tab at onset of headache; if no relief, may repeat 1 tab after at least 2 hrs; max = 2 tabs/24 hrs PO 30 days topiramate 100 mg PO BID 90 days HPI Comments Details: 68-yr-old female presents for f/u visit. Accompanied by her sister. Pt denies any significant interval medical changes. Pt reports she has good days and bad days. She had a fall last week. She went outside to meet the mailmen to get the mail, once she was handed the mail she tuned around, and next thing she knew she was on the ground and the paramedics were standing over her. Her sister notes she had not eaten well prior to the fall, and she is prone to not eating well. On the day of the fall, she had woken up, eaten a banana and OJ- as she had had a good dinner the night before- and then took a walk to the store, then came home and cleaned her upstairs floors, and then went to get the mail. Per sister, family has not noticed any sleep walking episodes. She is taking Emgality for her migarine attacks- the Emgality is helpful, but she is noticing a breakthrough migraine a week before and after- but cannot clarify exactly. She also notes her depression med was increased recently by her PCP, as she was feeling more depressed. She was able to identify her depressed mood. And today notes that her tremor can be a/w anxiety but not always. She still sees her therapist regularly. [facility] Medical History Hyperlipemia Osteoporosis CKD (chronic kidney disease) Hypothyroid Ataxic gait Seizures Asthma Depression Conversion disorder HTN (hypertension) Muscle weakness Hypothyroid Conversion disorder with attacks or seizures, acute episode, with psychological stressor Surgical History History of right knee surgery History of lobectomy of thyroid History of arthroscopy of right knee History of ankle surgery History of arthroscopy of left knee History of hysterectomy Family History Father CVD (cardiovascular disease) Stomach ulcer Cardiac arrest H/O heart bypass surgery Mother History of heart attack CHF (congestive heart failure) Lung cancer Diabetes mellitus High cholesterol HTN (hypertension) Hypothyroidism Sister Lung cancer Substance use disorder Brother Colitis Sister No problems noted. Sister Obstetric pulmonary blood clot embolism, antepartum Paternal Aunt Mental health disorder Substance use disorder Maternal Grandmother Mental health disorder Family/Other Substance use disorder Social History Household Members: Family Household Members Other:: brother, 2 cats Housing: House Alcohol intake: never Patient Tobacco Use Status: Never used Tobacco e-Cigarette/Vaping Use: Never Used Second Hand Smoke Exposure: No Current occupational status: disabled Cognitive needs: No Hearing needs: No Vision needs: No Physical Exam Const General: cooperative and no acute distress Orientation/consciousness: patient oriented x3 Resp Effort & Inspection: normal respiratory effort and able to speak in complete sentences Neuro Other: A&O- some STM lapses, some difficulty following conversation Gait- unsteady at times. General: patient oriented x3 Cranial nerves: Yes CN's II-XII intact bilaterally Cognition (Neuro): normal cognition Psych Appearance: grossly normal Mental Status: mental status grossly normal Speech and movement: Normal speech and movement present Affect: normal affect Attitude: cooperative Insight: Limited insight present (Psych) Assessment & Plan Assessment & Plan (1) Migraine: Code(s): G43.909 - Migraine, unspecified, not intractable, without status migrainosus Category: Medical (2) Conversion disorder: Code(s): F44.9 - Dissociative and conversion disorder, unspecified Category: Medical (3) Falls: Code(s): W19.XXXA - Unspecified fall, initial encounter Category: Medical (4) Depression: Code(s): F32.9 - Major depressive disorder, single episode, unspecified Category: Medical Plan For migraine headache: Continue Roboflavin 400mg qam Continue Magnesium 400mg qhs Continue Topiramate 100mg bid- for headache and convulsion prevention. Continue Emgality 120mg sc q month, as pt is having good reduction in migraine from use. Continue Tylenol and Sumatriptan prn. For recent fall: Increase po intake- try taking several small meals/snacks which include protein and complex CHO. Use walker consistently. ? For mood, history of sleep walking, [place]: Continue Fludrocortisone. Continue Fluoxetine 60mg qd. Continue Clonazepam 0.5mg bid. Continue working w/ her therapist. Acknowledged pt has made progress- she recently has been able to identify her feelings of anxiety/depression. Monitor tremor. Follow-up in clinic in 6 months or sooner prn Coding Level of Care Code Est Pt Level 4 (83074) Diagnoses Migraine G43.909 Conversion disorder F44.9 Falls W19.XXXA Depression F32.9
== END 2023-11-19 14:42 | disposition home or self-care (01) ==
PROVIDERS: PCP Nurse Practitioner Family; Visit Provider Nurse Practitioner Family
DX: G43.909 Migraine, unspecified, not intractable, without status migrainosus (principal); F44.9 Dissociative and conversion disorder, unspecified; R29.6 Repeated falls; F32.9 Major depressive disorder, single episode, unspecified
CPT/HCPCS: 99214

== ENCOUNTER → 2023-11-19 13:25 | Outpatient (BNVA) | payer OTHER, SELFPAY | PROVIDERS: PCP Nurse Practitioner Family; Visit Provider Nurse Practitioner Family | DX: G43.909 Migraine, unspecified, not intractable, without status migrainosus (principal); F44.9 Dissociative and conversion disorder, unspecified; F32.9 Major depressive disorder, single episode, unspecified; Z91.81 History of falling | CPT/HCPCS: 99212 ==

== ENCOUNTER 2023-12-12 08:22 | Outpatient (AMB) | payer OTHER, SELFPAY ==
--- NOTE | 2023-12-12 09:22 | A.OFFPC_ITS ---
Vital Signs 12/12/23 09:25 Height 4 ft 11 in Weight 121 lb BMI 24.4 BP 120/70 Blood Pressure Location Rt brachial Position Sitting Pulse 69 Pulse Source Pulse Oximeter Pulse Oximetry (%) 97 Oxygen Delivery Method Room Air Intake Visit Reasons: PE Intake Note: Patient here for physical exam. Mammo: 2022 BD: 2022 Allergies Penicillins [PENICILLINS] Allergy (Intermediate, Verified 12/12/23 09:26) HIVES carbamazepine [From Tegretol] Allergy (Mild, Verified 12/12/23 09:26) HIVES diflunisal [From Dolobid] Allergy (Mild, Verified 12/12/23 09:26) HIVES erythromycin base [From Edwin-Tab] Allergy (Mild, Verified 12/12/23 09:26) HIVES phenytoin [From Dilantin] Allergy (Mild, Verified 12/12/23 09:26) RASH,HIVES piroxicam [From Feldene] Allergy (Mild, Verified 12/12/23 09:26) HIVES sulfamethoxazole [From Bactrim] Allergy (Mild, Verified 12/12/23 09:26) HIVES trimethoprim [From Bactrim] Allergy (Mild, Verified 12/12/23 09:26) HIVES valproic acid [From Depakene] Allergy (Mild, Verified 12/12/23 09:26) HIVES Depakene Allergy (Unknown, Verified 12/12/23 09:26) Rash hydrochlorothiazide [HYDROCHLOROTHIAZIDE] Allergy (Unknown, Verified 12/12/23 09:26) rash lisinopril [LISINOPRIL] Allergy (Unknown, Verified 12/12/23 09:26) rash penicillin V Allergy (Unknown, Verified 12/12/23 09:26) Rash Sulfa (Sulfonamide Antibiotics) Allergy (Unknown, Verified 12/12/23 09:26) Rash codeine [Codeine] Adverse Reaction (Intermediate, Verified 12/12/23 09:26) NAUSEA & VOMITING rash ENVIRONMENTAL Allergy (Intermediate, Uncoded 12/12/23 09:26) ASTHMA,LOSES VOICE TAPE,PLASTIC Allergy (Intermediate, Uncoded 12/12/23 09:26) RASH surgical tape Allergy (Unknown, Uncoded 12/12/23 09:26) unknown Tobacco use date assessed: 07/16/23 Fall risk assessment: 2 + Falls in past year Last assessed Fall Risk: 12/12/23 Dental Screening Dental Screen Date: 07/16/23 HPI PE HPI Details Pt is here for a PE. Will order labs. Mammo is up to date. Bone density is up to date. Due for colon screen, will refer to GI. Pt follows up with pulmonology, endo, and neurology. Pt has a hx of conversion disorder. Pt c/o tenderness to her upper left breast. She reports that this is worse with touch. Will order diagnostic mammo and US. Pt has a partially ingrown right big toenail. Will refer to podiatry. [facility] Medical History Hyperlipemia Osteoporosis CKD (chronic kidney disease) Hypothyroid Ataxic gait Seizures Asthma Depression Conversion disorder HTN (hypertension) Muscle weakness Hypothyroid Conversion disorder with attacks or seizures, acute episode, with psychological stressor Surgical History History of right knee surgery History of lobectomy of thyroid History of arthroscopy of right knee History of ankle surgery History of arthroscopy of left knee History of hysterectomy Family History Father CVD (cardiovascular disease) Stomach ulcer Cardiac arrest H/O heart bypass surgery Mother History of heart attack CHF (congestive heart failure) Lung cancer Diabetes mellitus High cholesterol HTN (hypertension) Hypothyroidism Sister Lung cancer Substance use disorder Brother Colitis Sister No problems noted. Sister Obstetric pulmonary blood clot embolism, antepartum Paternal Aunt Mental health disorder Substance use disorder Maternal Grandmother Mental health disorder Family/Other Substance use disorder Social History Household Members: Family Household Members Other:: brother, 2 cats Housing: House Alcohol intake: never Patient Tobacco Use Status: Never used Tobacco e-Cigarette/Vaping Use: Never Used Second Hand Smoke Exposure: No Current occupational status: disabled Cognitive needs: No Hearing needs: No Vision needs: No Questionnaire PHQ-9 Over the last 2 weeks, how often have you been bothered by any of the following problems? 89447 - PHQ-9 Billing: Patient declined-do not bill Source: Developed by Drs. iMrza Corona, Jelena Walton, Arnoldo Gonzalez and colleagues, with an educational liu from [employer]. Thrive Questionnaire Date Thrive assessed: 12/12/23 What is your living situation today?: I choose not to answer this question Within the past 12 months, did the food you bought not last and you didn't have the money to get more?: I choose not to answer this question Within the past 12 months, did you worry whether your food would run out before you got money to buy more?: I choose not to answer this question Do you have trouble paying for medicines?: I choose not to answer this question Do you have trouble getting transportation to medical appointments?: I choose not to answer this question Do you have trouble paying your heating and electricity bill?: I choose not to answer this question Do you have trouble taking care of your child, family member or friend?: I choose not to answer this question Do you have trouble with day-to-day activities such as bathing, preparing meals, shopping, managing finances, etc.?: I choose not to answer this question Are you currently unemployed and looking for a job?: I choose not to answer this question Are you interested in more education?: I choose not to answer this question Currently or been in a relationship where the following occur: I choose not to answer THRIVE Score: 0 AUDIT C Alcohol Use Questionnaire (AUDIT-C) 1. How often do you have a drink containing alcohol?: Never 3. How often do you have six or more drinks on one occasion?: Never Total Score: 0 KATHRINE-7 AMB Questionnaire KATHRINE-7 Date KATHRINE - 7 assessed: 12/12/23 Source: Developed by Drs. Mirza Corona, Jelena Walton, Arnoldo Gonzalez and colleagues, with an educational liu from [employer]. KATHRINE-7 Assessment Billing KATHRINE-7 Assessment Tool: pt declined-do not bill Review of Systems Const Denies chills and Denies fever(s) Eyes Denies blurry vision ENT Denies vertigo, Denies dizziness and Denies sore throat Card Denies chest pain at rest, Denies chest pain with activity, Denies diaphoresis, Denies dyspnea and Denies dyspnea on exertion Resp Denies cough, Denies dyspnea, Denies dyspnea on exertion and Denies wheezing GI Denies abdominal pain, Denies melena, Denies hematochezia, Denies constipation, Denies diarrhea and Denies loose stools Denies hematuria Musc Denies numbness and Denies tingling Skin/Breast Denies lesions Neuro Denies vertigo, Denies dizziness, Denies numbness and Denies tingling Psych Denies anxiety, Denies depression, Denies homicidal ideation, Denies suicidal ideation and Denies other (substance abuse) Aller/Immun Denies wheezing Physical exam (Primary Care) Vital Signs: Last Vital Signs Pulse 69 12/12/23 09:25 BP 120/70 12/12/23 09:25 Pulse Ox 97 12/12/23 09:25 Oxygen Delivery Method Room Air 12/12/23 09:25 BMI result Body Mass Index 24.4 Tobacco/Smoking Status: Tobacco use Status Tobacco use date assessed 07/16/23 12/12/23 09:24 Patient Tobacco Use Status Never used Tobacco 12/12/23 09:24 e-Cigarette/Vaping Use Never Used 12/12/23 09:24 Thrive Assessment: Date of Thrive Assessment Date Thrive assessed 12/12/23 12/12/23 09:31 Currently or been in a relationship where the following occur: I choose not to answer Const Other: abnormal gait, intermittent staggering, though no signs of falling/trauma General: cooperative Nutritional Appearance: well nourished Orientation/consciousness: patient oriented x3 HENMT Head: Yes normal to inspection, Yes normocephalic and Yes atraumatic Ears: TM's normal bilaterally Eyes General: appearance normal, both eyes and all related structures Alignment and Position: alignment normal and position normal Neck Neck: Yes normal visual inspection and Yes no lymphadenopathy Thyroid: Thyroid normal Chest Other: 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, tenderness with palpation of upper left breast, no bumps palpated, no erythema or dimpling Resp Effort & Inspection: normal respiratory effort Auscultation: clear to auscultation bilaterally Cardio Rate: regular rate Rhythm: regular rhythm Heart sounds: S1 normal heart sound present, S2 normal heart sound present and no murmurs GI Palpation (GI): Soft to palpation and nontender Auscultation: normal bowel sounds Skin Rashes: no rashes Neuro General: patient oriented x3, moves all extremities, no focal motor deficits and deep tendon reflexes 2+ bilaterally Romberg Test: Negative Extrem Other: hyperreflexive patellar reflexes, right big toenail slightly ingrown, tenderness with palpation of lateral fold, slight swelling, no erythema Psych Appearance: grossly normal Mental Status: mental status grossly normal Speech and movement: Normal speech and movement present Affect: normal affect Attitude: cooperative Thought process: Normal thought process present Thought content: Normal thought content present Insight: Good insight present (Psych) Judgement: Good judgement present (Psych) Assessment and Plan Assessment & Plan (1) Encounter for routine adult physical exam with abnormal findings: Code(s): Z00.01 - Encounter for general adult medical examination with abnormal findings Plan: Labs ordered (2) Conversion disorder with attacks or seizures, acute episode, with psychologi selvin stressor: Code(s): F44.5 - Conversion disorder with seizures or convulsions Plan: Continue to monitor (3) Screening for colon cancer: Code(s): Z12.11 - Encounter for screening for malignant neoplasm of colon Plan: Referred to GI (4) Ingrown toenail: Code(s): L60.0 - Ingrowing nail Plan: Referred to podiatry (5) Breast tenderness: Code(s): N64.4 - Mastodynia Plan: US and diagnostic mammo ordered Plan The patient agreed to the use of a medical billing associate for this encounter. Scribed for DANIELLA Rosen by Lulu Avila medical billing associate, on 12/12/2023 at 09:50 EST. Orders: Orders MM diagnostic mammo unilat LT Today L60.0 - Ingrowing nail, N64.4 - Mastodynia Complete Blood Count Auto Diff Today Z00. - Encounter for general adult medical examination with abnormal findings Comprehensive [place]. Panel Fast Today Z00.01 - Encounter for general adult medical examination with abnormal findings TSH reflex Free T4 Today Z00.01 - Encounter for general adult medical examination with abnormal findings UA CC w/rflx Micro + Cult Today Z00.01 - Encounter for general adult medical examination with abnormal findings Lipid Panel Today Z00.01 - Encounter for general adult medical examination with abnormal findings US breast LT complete Today N64.4 - Mastodynia Referrals Gastroenterology Referral F44.5 - Conversion disorder with seizures or convulsions, Z12.11 - Encounter for screening for malignant neoplasm of colon Podiatry Referral L60.0 - Ingrowing nail Coding Level of Care Code Est Pt Prev Care >65y(16520) Diagnoses Encounter for routine adult physical exam with abnormal findings Z00.01 Conversion disorder with attacks or seizures, acute episode, with psychological stressor F44.5 Screening for colon cancer Z12.11 Ingrown toenail L60.0 Breast tenderness N64.4
[2023-12-12 09:25] VITALS: BP 120/70; PULSE 69; O2SAT 97; BMI 24.4
== END 2023-12-12 10:01 | disposition home or self-care (01) ==
PROVIDERS: PCP Nurse Practitioner Family; Visit Provider Nurse Practitioner Family
DX: Z00.01 Encounter for general adult medical examination with abnormal findings (principal); F44.5 Conversion disorder with seizures or convulsions; Z12.11 Encounter for screening for malignant neoplasm of colon; L60.0 Ingrowing nail; N64.4 Mastodynia
CPT/HCPCS: 99213; 99397

== ENCOUNTER 2024-01-02 14:00 | Emergency (ER) | payer OTHER, SELFPAY ==
--- NOTE | 2024-01-02 14:10 | ED.WEAKNESS ---
HPI - Weakness General Chief complaint: Weakness Stated complaint: UNSTEADY GAIT, WEAK Time Seen by Provider: 01/02/24 14:07 Source: patient and EMS Mode of arrival: EMS Limitations: no limitations History of Present Illness ED Provider: Dr. Rosendo Kraus HPI Narrative: 68-year-old female, with a past medical history of asthma, ataxic gait, chronic kidney disease, conversion disorder, depression, hypertension, hyperlipidemia, hypothyroidism, muscle weakness, osteoporosis and seizures, who presents to the emergency department for evaluation weakness and difficulty walking. The patient states that she was at the [employer] working on an art project. She states she got very cold secondary to the air conditioning and walked outside to get warm. She states she walked without her walker. She states that there was a presentation being given by 1 of the [place] police officers. When she walked back into the [facility] she was off balance and people were concerned about here. She then states she had a sudden onset of weakness and was unable to talk or stand. The staff and police officers were concerned about her difficulty walking but the patient insisted that she could walk home. She told me that the police officers then convinced her to come to the hospital by ambulance for evaluation. She states that when she gets anxious she does stutter but I was able to comprehend her language without any difficulty. Review of systems was positive for chills, cough x2 days, rhinorrhea, nausea with no vomiting or diarrhea. She denied myalgias arthralgias. Related Data Home Medications ?Medication ?Instructions ?Recorded ?Confirmed aspirin 81 mg tablet,delayed 81 mg PO DAILY 07/05/20 11/19/23 release (Adult Low Dose Aspirin) Previous Rx's ?Medication ?Instructions ?Recorded polyethylene glycol 3350 17 17 g PO DAILY PRN constipation 90 12/26/20 gram/dose oral powder (Miralax) days #510 grams betamethasone dipropionate 0.05 % 1 appl topical DAILY skin 09/01/21 topical cream irritation 14 days #45 grams albuterol sulfate 2.5 mg/3 mL 2.5 mg (3 mL) inhalation QID PRN 02/09/22 (0.083 %) solution for nebulization shortness of breath or wheezing 90 days #180 mL ibuprofen 600 mg tablet 600 mg PO TID PRN headache 30 days 08/08/22 #60 tabs [facility] unit #1 ea 10/30/22 magnesium oxide 400 mg (241.3 mg 400 mg PO BEDTIME diarrhea 90 days 03/09/23 magnesium) tablet #90 tabs risedronate 35 mg tablet 35 mg PO QWEEK #4 tabs 04/17/23 sumatriptan succinate 100 mg tablet See Rx Instructions PO .COMPLEX 30 04/18/23 days #10 tabs galcanezumab-gnlm 120 mg/mL 120 mg subcut ONCE 30 days #1 mL 06/18/23 subcutaneous pen injector (Emgality Pen) montelukast 10 mg tablet 10 mg PO DAILY 90 days #90 tabs 06/24/23 riboflavin (vitamin B2) 100 mg 100 mg PO DAILY 90 days #90 tabs 07/17/23 tablet atorvastatin 80 mg tablet 80 mg PO DAILY 90 days #90 tabs 08/08/23 meclizine 25 mg tablet 25 mg PO DAILY PRN dizziness #60 08/23/23 tabs fluticasone propionate 50 1 spray intranasal DAILY 90 days 08/31/23 mcg/actuation nasal #48 grams spray,suspension oxymetazoline 0.05 % nasal spray 2 spray intranasal Q12H PRN nasal 10/19/23 (Afrin (oxymetazoline)) congestion 3 days #15 mL pseudoephedrine HCl 120 mg 120 mg PO Q12H PRN nasal 10/19/23 tablet,extended release (Sudafed congestion #20 tabs 12 Hour) topiramate 100 mg tablet 100 mg PO BID 90 days #180 tabs 10/25/23 fluoxetine 20 mg capsule 60 mg (3 x 20 mg) PO DAILY 90 days 10/29/23 #270 caps cholecalciferol (vitamin D3) 50 50 mcg PO DAILY 90 days #90 caps 11/07/23 mcg (2,000 unit) capsule ezetimibe 10 mg tablet 10 mg PO DAILY #90 tabs 11/07/23 fludrocortisone 0.1 mg tablet 0.1 mg PO DAILY for blood pressure 11/07/23 90 days #90 tabs folic acid 0.8 mg capsule 0.8 mg PO DAILY #90 caps 11/07/23 levothyroxine 25 mcg tablet 25 mcg PO DAILY #90 tabs 11/07/23 fluticasone 250 mcg-salmeterol 50 1 ea inhalation BID 90 days #3 11/27/23 mcg/dose blistr powdr for inhalers inhalation (Giovannaxakbar Inhub) clonazepam 0.5 mg tablet 0.5 mg PO BID PRN 12/20/23 anxiety/agitation 60 days #120 tabs albuterol sulfate 90 mcg/actuation 2 puff inhalation Q6H PRN 12/26/23 aerosol inhaler shortness of breath or wheezing #6.7 grams Allergies Allergy/AdvReac Type Severity Reaction Status Date / Time Penicillins [PENICILLINS] Allergy Intermediate HIVES Verified 01/02/24 14:36 carbamazepine [From Tegretol] Allergy Mild HIVES Verified 01/02/24 14:36 diflunisal [From Dolobid] Allergy Mild HIVES Verified 01/02/24 14:36 erythromycin base Allergy Mild HIVES Verified 01/02/24 14:36 [From Edwin-Tab] phenytoin [From Dilantin] Allergy Mild RASH,HIVES Verified 01/02/24 14:36 piroxicam [From Feldene] Allergy Mild HIVES Verified 01/02/24 14:36 sulfamethoxazole Allergy Mild HIVES Verified 01/02/24 14:36 [From Bactrim] trimethoprim [From Bactrim] Allergy Mild HIVES Verified 01/02/24 14:36 valproic acid [From Depakene] Allergy Mild HIVES Verified 01/02/24 14:36 Depakene Allergy Unknown Rash Verified 01/02/24 14:36 hydrochlorothiazide Allergy Unknown rash Verified 12/12/23 09:26 [HYDROCHLOROTHIAZIDE] lisinopril [LISINOPRIL] Allergy Unknown rash Verified 12/12/23 09:26 penicillin V Allergy Unknown Rash Verified 12/12/23 09:26 Sulfa (Sulfonamide Allergy Unknown Rash Verified 12/12/23 09:26 Antibiotics) codeine [Codeine] AdvReac Intermediate NAUSEA & Verified 12/12/23 09:26 VOMITING rash ENVIRONMENTAL Allergy Intermediate ASTHMA,LOSES Uncoded 12/12/23 09:26 VOICE TAPE,PLASTIC Allergy Intermediate RASH Uncoded 12/12/23 09:26 surgical tape Allergy Unknown unknown Uncoded 12/12/23 09:26 Review of Systems Review of Systems: Yes all other systems are reviewed and are negative PMFSH Past Medical History [facility] Narrative: Social history: She states she lives with her brother. She denies tobacco, alcohol and drug use. Medical History Hyperlipemia Osteoporosis CKD (chronic kidney disease) Hypothyroid Ataxic gait Seizures Asthma Depression Conversion disorder HTN (hypertension) Muscle weakness Hypothyroid Conversion disorder with attacks or seizures, acute episode, with psychological stressor Surgical History History of right knee surgery History of lobectomy of thyroid History of arthroscopy of right knee History of ankle surgery History of arthroscopy of left knee History of hysterectomy Family History Family History Father CVD (cardiovascular disease) Stomach ulcer Cardiac arrest H/O heart bypass surgery Mother History of heart attack CHF (congestive heart failure) Lung cancer Diabetes mellitus High cholesterol HTN (hypertension) Hypothyroidism Sister Lung cancer Substance use disorder Brother Colitis Sister No problems noted. Sister Obstetric pulmonary blood clot embolism, antepartum Paternal Aunt Mental health disorder Substance use disorder Maternal Grandmother Mental health disorder Family/Other Substance use disorder Social History Social History Household Members: Family Household Members Other:: brother, 2 cats Housing: House Alcohol intake: never Patient Tobacco Use Status: Never used Tobacco e-Cigarette/Vaping Use: Never Used Second Hand Smoke Exposure: No Advance Directives: No Advance Directives Information Provided: Yes Do you have a plan to hurt others: No Plan Current occupational status: disabled Cognitive needs: No Hearing needs: No Vision needs: No Physical Exam Vital Signs: Vital Signs: Last Vital Signs Temp 97.9 F 01/02/24 14:34 Pulse 76 01/02/24 14:34 Resp 18 01/02/24 14:34 BP 120/79 01/02/24 14:34 Pulse Ox 98 01/02/24 14:34 O2 Del Method Room Air 01/02/24 14:34 BMI result Body Mass Index 24.4 Exam: General: Awake, alert in no distress Head: Normocephalic, atraumatic EENT: PERRL, Lids normal, sclera normal, conjunctiva normal, nose normal , ears normal, throat without erythema or exudates Neck: Supple, no adenopathy Lung: breath sounds symmetric, no wheezing, rales or rhonchi Chest: symmetric movement, nontender Heart: regular rate and rhythm, normal S1, S2 no murmurs or rubs Abdomen: soft, non-tender, nondistended, normal bowel sounds Back: no vertebral tenderness, no CVAT Extremities: no deformities, moves all extremities symmetrically Neuro: Awake, alert, oriented, normal speech, cranial nerves intact, moves all extremities symmetrically Psych: Pleasant, cooperative Medical Decision Making Medical Decision Making MDM Narrative: 68-year-old female, with a past medical history of asthma, ataxic gait, chronic kidney disease, conversion disorder, depression, hypertension, hyperlipidemia, hypothyroidism, muscle weakness, osteoporosis and seizures, who presents to the emergency department for evaluation weakness and difficulty walking. Physical examination was unremarkable, she had a nonfocal neurologic exam. Differential diagnosis: ?Includes but is not limited to stroke, TIA, anxiety, electrolyte abnormalities, anemia, urinary tract infection, COVID-19, influenza, RSV Following evaluation was ordered: CBC, CMP, lipase, magnesium, COVID-19, influenza, RSV, urinalysis Course: 16:18 My independent interpretation patient's laboratory evaluation as follows: CBC was normal. CMP was normal. Urinalysis revealed 2+ leukocyte esterase. Microscopic revealed 0-2 RBCs, 11-20 WBCs but no bacteria-patient does not have a urinary tract infection plus she had no symptoms that were concerning for urinary tract infection such as frequency or dysuria. The patient was able to walk to the bathroom with an ataxic gait. The patient may have a viral infection causing your symptoms I did discuss this with her. The patient's COVID-19, influenza and RSV tests were negative. The patient was discharged home with printed and verbal instructions. Admission/Observation Consideration of admission/observation: Escalation of care including admission/observation considered Lab Data 01/02/24 15:35 01/02/24 15:35 Labs: Lab Results 01/02/24 01/02/24 Range/Units 15:35 15:55 WBC 7.9 (4.8-10.8) X10*3/uL RBC 4.19 L (4.20-5.50) X10*6/uL Hgb 13.0 (12.0-16.0) g/dl Hct 39.7 (37.0-47.0) % MCV 94.7 (80.0-98.0) fL MCH 31.0 (27.0-33.0) pg MCHC 32.7 (31.0-35.0) g/dl RDW 14.3 (11.0-16.0) % Plt Count 301 (160-400) X10*3/uL MPV 9.5 (9.4-12.3) fL Immature Gran % (Auto) 0.6 H (0.0-0.4) % Neut % (Auto) 69.3 (45-73) % Lymph % (Auto) 18.1 L (20-40) % [place] % (Auto) 7.7 (2-11) % Eos % (Auto) 3.5 (0-4) % Baso % (Auto) 0.8 (0-2) % Lymph # (Auto) 1.4 (1.2-4.9) X10*3/uL [place] # (Auto) 0.6 (0.1-1.2) X10*3/uL Eos # (Auto) 0.3 (0.0-0.4) X10*3/uL Baso # (Auto) 0.1 (0.0-0.2) X10*3/uL Abs Immat Gran (auto) 0.05 H (0.00-0.03) X10*3/uL Absolute Neuts (auto) 5.5 (2.0-8.3) x10*3/uL Absolute Nucleated RBC 0.000 (0.0-0.012) X10*3/uL Nucleated RBC % (auto) 0.0 (0.0-0.2) /100WBC Sodium 141 (135-145) mmol/L Potassium 4.0 (3.3-5.1) mmol/L Chloride 110 H (96-108) mmol/L Carbon Dioxide 24 (22-29) mmol/L Anion Gap 11 L (12-20) BUN 15 (9-16) mg/dL Creatinine 0.94 (0.5-1.4) mg/dL Estim Creat Clear Calc 44.5 Estimated GFR 59 Random Glucose 105 (60-115) mg/dL Calcium 9.4 D (8.4-10.2) mg/dL Magnesium 2.2 (1.6-2.6) mg/dL Total Bilirubin 0.3 (0.0-1.0) mg/dL AST 30 (5-31) U/L ALT 25 (0-31) U/L Alkaline Phosphatase 89 (39-117) U/L Total Protein 6.7 (6.5-8.0) g/dL Albumin 3.8 (3.5-5.0) g/dL Lipase 33 (8-78) U/L Urine Color Yellow Urine Appearance Clear Urine pH 6.0 (5.0-9.0) Ur Specific [place] <= 1.005 (1.005-1.025) Urine Protein Negative (Neg-Trace) mg/dL Urine Glucose (UA) Negative (Negative) mg/dL Urine Ketones Negative (Negative) mg/dL Urine Blood Negative (Negative) Urine Nitrite Negative (Negative) Ur Leukocyte Esterase Moderate (2+) H (Negative) Urine RBC 0-2 (0-2) /HPF Urine WBC 11-20 H (0-5) /HPF Ur Squamous Epith Cells 0-2 (0-2) /HPF Urine Bacteria None Seen (None Seen) Hyaline Casts 0-2 (0-2) /LPF Discharge Plan Discharge Clinical Impression: Weakness Patient Disposition: Home, Self-Care Instructions: Weakness (ED) Additional Instructions: Your blood work was normal. Your urine was unremarkable and I do not think that you have a urine infection based on your symptoms and this urine test. Your COVID-19, influenza and RSV tests were It is possible that you may have a viral infection as the cause of your weakness. Follow-up with your doctor in 2 days. Please return to the emergency department if your symptoms get worse or if you develop any symptoms that are concerning to you. Continue to take your medications as prescribed. Follow-up with your doctor in 2 days. Please return to the emergency department if your symptoms get worse or if you develop any symptoms that are concerning to you. Prescriptions: No Action polyethylene glycol 3350 [Miralax] 17 gram/dose powder 17 g PO DAILY PRN (Reason: constipation) 90 Days Qty: 510 0RF (DME) [facility] unit See Rx Instructions .Route .MEDSUPPLY Qty: 1 0RF Rx Instructions: As directed magnesium oxide 400 mg (241.3 mg magnesium) tablet 400 mg PO BEDTIME 90 Days Qty: 90 1RF risedronate 35 mg tablet 35 mg PO QWEEK Qty: 4 11RF Emgality Pen 120 mg/mL pen injector 120 mg subcut ONCE 30 Days Qty: 1 6RF montelukast 10 mg tablet 10 mg PO DAILY 90 Days Qty: 90 1RF riboflavin (vitamin B2) 100 mg tablet 100 mg PO DAILY 90 Days Qty: 90 1RF atorvastatin 80 mg tablet 80 mg PO DAILY 90 Days Qty: 90 1RF fluticasone propionate 50 mcg/actuation spray,suspension 1 spray intranasal DAILY 90 Days Qty: 48 1RF Rx Instructions: administer into each nostril topiramate 100 mg tablet 100 mg PO BID 90 Days Qty: 180 1RF fluoxetine 20 mg capsule 60 mg PO DAILY 90 Days Qty: 270 1RF levothyroxine 25 mcg tablet 25 mcg PO DAILY Qty: 90 1RF ezetimibe 10 mg tablet 10 mg PO DAILY Qty: 90 0RF cholecalciferol (vitamin D3) 50 mcg (2,000 unit) capsule 50 mcg PO DAILY 90 Days Qty: 90 1RF folic acid 0.8 mg capsule 0.8 mg PO DAILY Qty: 90 1RF fludrocortisone 0.1 mg tablet 0.1 mg PO DAILY 90 Days Qty: 90 1RF fluticasone propion-salmeterol [Wixela Inhub] 250-50 mcg/dose blister with device 1 ea inhalation BID 90 Days Qty: 3 4RF clonazepam 0.5 mg tablet 0.5 mg PO BID PRN (Reason: anxiety/agitation) 60 Days Qty: 120 1RF albuterol sulfate 90 mcg/actuation HFA aerosol inhaler 2 puff inhalation Q6H PRN (Reason: shortness of breath or wheezing) Qty: 6.7 0RF aspirin [Adult Low Dose Aspirin] 81 mg tablet,delayed release (DR/EC) 81 mg PO DAILY betamethasone dipropionate 0.05 % cream 1 appl topical DAILY 14 Days Qty: 45 0RF albuterol sulfate 2.5 mg /3 mL (0.083 %) solution for nebulization 2.5 mg inhalation QID PRN (Reason: shortness of breath or wheezing) 90 Days Qty: 180 0RF Rx Instructions: for neb meclizine 25 mg tablet 25 mg PO DAILY PRN (Reason: dizziness) Qty: 60 0RF pseudoephedrine HCl [Sudafed 12 Hour] 120 mg tablet extended release 120 mg PO Q12H PRN (Reason: nasal congestion) Qty: 20 0RF oxymetazoline [Afrin (oxymetazoline)] 0.05 % spray,non-aerosol 2 spray intranasal Q12H PRN (Reason: nasal congestion) 3 Days Qty: 15 0RF ibuprofen 600 mg tablet 600 mg PO TID PRN (Reason: headache) 30 Days Qty: 60 1RF Rx Instructions: w/ food sumatriptan succinate 100 mg tablet See Rx Instructions PO .COMPLEX 30 Days Qty: 10 1RF Rx Instructions: take 1 tab at onset of headache; if no relief, may repeat 1 tab after at least 2 hrs; max = 2 tabs/24 hrs PO Print Language: Armenian
[2024-01-02 14:34] VITALS: BP 120/79; PULSE 76; RESP 18; TEMP 36.6; O2SAT 98; BMI 24.4
[2024-01-02 15:46] LABS: MANUAL DIFF FLAG NO
[2024-01-02 15:48] LABS: Basophils Absolute Auto 0.1 X10*3/uL (0.0-0.2); Basophils Percent Auto 0.8 % (0-2); Eosinophils Absolute Auto 0.3 X10*3/uL (0.0-0.4); Eosinophils Percent Auto 3.5 % (0-4); Hematocrit 39.7 % (37.0-47.0); Imm Gran Abs Auto 0.05 X10*3/uL (0.00-0.03); Imm Gran Pct Auto 0.6 % (0.0-0.4); Lymphocytes Absolute Auto 1.4 X10*3/uL (1.2-4.9); Lymphocytes Percent Auto 18.1 % (20-40); Mean Corpuscular HGB Conc 32.7 g/dl (31.0-35.0); Mean Corpuscular Volume 94.7 fL (80.0-98.0); Mean Platelet Volume 9.5 fL (9.4-12.3); Monocytes Absolute Auto 0.6 X10*3/uL (0.1-1.2); Monocytes Percent Auto 7.7 % (2-11); Neutrophils Absolute Auto 5.5 x10*3/uL (2.0-8.3); Neutrophils Percent Auto 69.3 % (45-73); Platelet Count 301 X10*3/uL (160-400); Red Blood Count 4.19 X10*6/uL (4.20-5.50); Red Cell Distribution Width 14.3 % (11.0-16.0); White Blood Count 7.9 X10*3/uL (4.8-10.8)
[2024-01-02 16:00] VITALS: BP 122/61; PULSE 78; RESP 18; TEMP 36.7; O2SAT 98
[2024-01-02 16:02] LABS: Appearance Urine Clear; Color Urine Yellow; Glucose Urine UA Negative (Negative); Leukocyte Esterase Urine Moderate (2+) (Negative); Nitrite Urine Negative (Negative); Specific Gravity - Urine <= 1.005 (1.005-1.025); UMIC TRIGGER UACC YES; Urine Blood Negative (Negative); Urine Ketones Negative (Negative); Urine Protein Negative (Neg-Trace)
[2024-01-02 16:05] LABS: Bacteria Urine None Seen (None Seen); Hyaline Casts Urine 0-2 /LPF (0-2); RBC Urine 0-2 /HPF (0-2); Squamous Epithelial Cell Urine 0-2 /HPF (0-2); UACC Culture Trigger YES
--- NOTE | 2024-01-02 16:07 | PC.NURSE ---
labs/urine obtained/sent to lab. plan of care ongoing.
[2024-01-02 16:09] LABS: Alanine Aminotransferase 25 U/L (0-31); Albumin Level 3.8 g/dL (3.5-5.0); Alkaline Phosphatase 89 U/L (39-117); Anion Gap 11 (12-20); Aspartate Amino Transferase 30 U/L (5-31); Bilirubin Total 0.3 mg/dL (0.0-1.0); Blood Urea Nitrogen 15 mg/dL (9-16); Calcium 9.4 mg/dL (8.4-10.2); Carbon Dioxide 24 mmol/L (22-29); Chloride 110 mmol/L (96-108); Creatinine Clr Calc Pharmacy 44.5; Estimated Glomerular Filt Rate 59; Glucose Random 105 mg/dL (60-115); Lipase 33 U/L (8-78); Magnesium 2.2 mg/dL (1.6-2.6); Sodium 141 mmol/L (135-145); Total Protein 6.7 g/dL (6.5-8.0)
[2024-01-02 16:28] LABS: Influenza A PCR NEGATIVE (Negative); Influenza B PCR NEGATIVE (Negative); Resp Syncy Virus RNA Qual PCR NEGATIVE (Negative); SARS COV2 PCR INHOUSE NEGATIVE (Negative)
[2024-01-02 16:37] VITALS: BP 122/61; PULSE 78; RESP 18; TEMP 36.7; O2SAT 98
== END 2024-01-02 16:37 | disposition home or self-care (01) ==
PROVIDERS: Emergency Provider Emergency Medicine Emergency Medical Services; PCP Nurse Practitioner Family
DX: R53.1 Weakness (principal); Z03.818 Encounter for observation for suspected exposure to other biological agents ruled out; R05.9 Cough, unspecified
CPT/HCPCS: 0241U; 36415; 80053; 81001; 83690; 83735; 85025; 87086; 99283

== ENCOUNTER 2024-01-16 13:32 | Outpatient (REF) | payer OTHER, SELFPAY ==
--- NOTE | ~2024-01-16 | MM_ITS ---
EXAMINATION: MM DIAGNOSTIC DIGITAL BREAST TOMOSYNTHESIS, BILATERAL US BREAST LIMITED, LEFT MAMMOGRAPHY: CLINICAL INFORMATION: Due for yearly. Complaint of breast pain left breast 10:00 axis, posterior one third. 69-year-old female. COMPARISON: Mammography: 01/16/2024, 02/20/2023, 12/28/2021, 09/20/2020, and dating back to 2017. TECHNIQUE: Digital breast tomosynthesis is performed in both the craniocaudal and mediolateral oblique views along with computer-aided detection (CAD). Synthesized 2D images are generated from the tomosynthesis. FINDINGS: There are scattered areas of fibroglandular density (ACR BI-RADS breast composition Category b). Marker has been placed in the left breast, posterior 10:00 axis indicating the area of breast pain. There is no underlying mass, or other abnormality to correlate with this region. There are bilateral benign type breast calcifications which are stable. There are no suspicious masses, suspicious grouped calcifications, or areas of architectural distortion in either breast. The parenchymal pattern is stable from prior exams. There is no skin or axillary abnormality. ULTRASOUND: CLINICAL INFORMATION: Left breast pain 10:00 axis posterior one third. COMPARISON: None contributory. TECHNIQUE: Targeted sonographic evaluation left breast was performed using a high frequency linear transducer. Left breast was scanned from 7:00 to 11:00 to include the area of pain. Selected archived documentation. FINDINGS: LEFT BREAST: There is a mixture of fatty and fibroglandular tissue. No suspicious mass is seen. There is no pathologic acoustic shadowing. There is no cystic abnormality. There is no sonographic correlate to the region of breast pain left breast 10:00 axis. MM/MM tomosynthesis diagnostic BI IMPRESSION: -There are no findings suspicious for malignancy in either breast. -There is no mammographic or sonographic correlate to the focus of breast pain in the left breast at the 10:00 axis. Recommend clinical management and follow-up. -Otherwise, recommend the patient resume routine annual screening. OVERALL ASSESSMENT: Mammography: BI-RADS 2 - Benign Findings Ultrasound: BI-RADS 2 - Benign Findings RECOMMENDATION: 1. Patient should be managed based on the clinical impression. 2. Otherwise, routine annual screening mammography. This patient's information was entered into a reminder system with a target due date for their next mammogram.
== END 2024-01-16 13:33 | disposition home or self-care (01) ==
LOC: HO.MAMMO 13:32
PROVIDERS: PCP Nurse Practitioner Family; Visit Provider Nurse Practitioner Family
DX: Z13.89 Encounter for screening for other disorder (principal)
CPT/HCPCS: 76642; 77062; 77066

== ENCOUNTER → 2024-01-16 14:00 | Outpatient (BNV) | payer OTHER, SELFPAY | PROVIDERS: PCP Nurse Practitioner Family; Visit Provider Radiology Diagnostic Radiology | DX: N64.4 Mastodynia (principal) | CPT/HCPCS: 76642; 77066; G0279 ==

== ENCOUNTER 2024-01-16 15:54 | Emergency (ER) | payer OTHER, SELFPAY ==
--- NOTE | 2024-01-16 | ECG_ITS ---
Test Reason : SYNCOPE Blood Pressure : / mmHG Vent. Rate : 068 BPM Atrial Rate : 068 BPM P-R Int : 166 ms QRS Dur : 080 ms QT Int : 422 ms P-R-T Axes : 066 042 045 degrees QTc Int : 448 ms Normal sinus rhythm Possible Left atrial enlargement Borderline ECG When compared with ECG of 10-APR-2023 12:57, No significant change was found Referred By: Generic ED Physician Electronically Signed By:TABITHA CORRIGAN MD
--- NOTE | ~2024-01-16 | XR_ITS ---
EXAMINATION: XR CHEST CLINICAL INFORMATION: Syncope. COMPARISON: Chest radiograph 04/10/2023. TECHNIQUE: 2 views of the chest were obtained. FINDINGS: Normal heart size. Atherosclerotic disease in the aortic arch. Chronic tenting superior to the right hemidiaphragm. No focal consolidation, pleural effusion or pneumothorax. Chronic deformity of the right posterior fourth and fifth ribs. No acute osseous findings. XR/XR chest 2V IMPRESSION: No acute cardiopulmonary findings.
[2024-01-16 15:57] VITALS: BMI 21.8
[2024-01-16 16:10] VITALS: BP 179/100; PULSE 73; RESP 18; TEMP 35.9; O2SAT 98
--- NOTE | 2024-01-16 16:30 | PC.NURSE ---
a&ox4. vss and up to date aside from being hypertensive. pt brought to ED after an outpatient appointment for mammogram - went to [facility] to corn picker medication. pharmacy staff called outpatient response d/t pt being confused and not baseline. pt then had witnessed possible syncopal episode where she was then lowered to ground by staff. no trauma noted. pt denies any sx. does not recall the event. pt reports decreased PO intake throughout the day since she was running errands/at appointments. labs obtained/sent to lab. ekg performed by tech. POC = 122mg/dL. no sob/wob noted. respirations even/unlabored. plan of care ongoing. call quarles placed within reach.
[2024-01-16 16:33] LABS: MANUAL DIFF FLAG NO
[2024-01-16 16:40] LABS: Basophils Absolute Auto 0.1 X10*3/uL (0.0-0.2); Basophils Percent Auto 0.9 % (0-2); Eosinophils Absolute Auto 0.3 X10*3/uL (0.0-0.4); Eosinophils Percent Auto 3.4 % (0-4); Hematocrit 41.9 % (37.0-47.0); Hemoglobin 13.4 g/dl (12.0-16.0); Imm Gran Abs Auto 0.05 X10*3/uL (0.00-0.03); Imm Gran Pct Auto 0.7 % (0.0-0.4); Lymphocytes Absolute Auto 1.3 X10*3/uL (1.2-4.9); Lymphocytes Percent Auto 17.4 % (20-40); Mean Corpuscular Hemoglobin 30.4 pg (27.0-33.0); Mean Platelet Volume 9.8 fL (9.4-12.3); Monocytes Absolute Auto 0.5 X10*3/uL (0.1-1.2); Monocytes Percent Auto 6.6 % (2-11); Neutrophils Absolute Auto 5.4 x10*3/uL (2.0-8.3); Platelet Count 291 X10*3/uL (160-400); Red Blood Count 4.41 X10*6/uL (4.20-5.50); Red Cell Distribution Width 14.5 % (11.0-16.0); White Blood Count 7.6 X10*3/uL (4.8-10.8)
--- NOTE | 2024-01-16 16:40 | ED_ITS ---
HPI - Syncope General Chief Complaint: Syncope Stated Complaint: Syncope Time Seen by Provider: 01/16/24 16:22 Source: patient Mode of arrival: ambulatory Limitations: no limitations History of Present Illness HPI narrative: 69-year-old female past medical history significant for asthma ataxic gait chronic kidney disease conversion disorder depression hypertension hyperlipidemia hypothyroidism muscle weakness osteoporosis seizures presents to the emergency department after getting an outpatient mammogram. Patient was going and walking when she went to the cafe and was helped down. Patient did not lose control of bowel or bladder she bite her tongue she denies remembering the incident she was chest pain cough fever nausea vomiting or diarrhea states it was she is in her normal state of health and would like to just go home at this time. Related Data Home Medications ?Medication ?Instructions ?Recorded ?Confirmed aspirin 81 mg tablet,delayed 81 mg PO DAILY 07/05/20 11/19/23 release (Adult Low Dose Aspirin) Previous Rx's ?Medication ?Instructions ?Recorded polyethylene glycol 3350 17 17 g PO DAILY PRN constipation 90 12/26/20 gram/dose oral powder (Miralax) days #510 grams betamethasone dipropionate 0.05 % 1 appl topical DAILY skin 09/01/21 topical cream irritation 14 days #45 grams albuterol sulfate 2.5 mg/3 mL 2.5 mg (3 mL) inhalation QID PRN 02/09/22 (0.083 %) solution for nebulization shortness of breath or wheezing 90 days #180 mL ibuprofen 600 mg tablet 600 mg PO TID PRN headache 30 days 08/08/22 #60 tabs [facility] unit #1 ea 10/30/22 magnesium oxide 400 mg (241.3 mg 400 mg PO BEDTIME diarrhea 90 days 03/09/23 magnesium) tablet #90 tabs risedronate 35 mg tablet 35 mg PO QWEEK #4 tabs 04/17/23 sumatriptan succinate 100 mg tablet See Rx Instructions PO .COMPLEX 30 04/18/23 days #10 tabs galcanezumab-gnlm 120 mg/mL 120 mg subcut ONCE 30 days #1 mL 06/18/23 subcutaneous pen injector (Emgality Pen) riboflavin (vitamin B2) 100 mg 100 mg PO DAILY 90 days #90 tabs 07/17/23 tablet atorvastatin 80 mg tablet 80 mg PO DAILY 90 days #90 tabs 02/28/24 meclizine 25 mg tablet 25 mg PO DAILY PRN dizziness #60 08/23/23 tabs fluticasone propionate 50 1 spray intranasal DAILY 90 days 08/31/23 mcg/actuation nasal #48 grams spray,suspension oxymetazoline 0.05 % nasal spray 2 spray intranasal Q12H PRN nasal 10/19/23 (Afrin (oxymetazoline)) congestion 3 days #15 mL pseudoephedrine HCl 120 mg 120 mg PO Q12H PRN nasal 10/19/23 tablet,extended release (Sudafed congestion #20 tabs 12 Hour) topiramate 100 mg tablet 100 mg PO BID 90 days #180 tabs 10/25/23 fluoxetine 20 mg capsule 60 mg (3 x 20 mg) PO DAILY 90 days 10/29/23 #270 caps cholecalciferol (vitamin D3) 50 50 mcg PO DAILY 90 days #90 caps 11/07/23 mcg (2,000 unit) capsule ezetimibe 10 mg tablet 10 mg PO DAILY #90 tabs 11/07/23 fludrocortisone 0.1 mg tablet 0.1 mg PO DAILY for blood pressure 11/07/23 90 days #90 tabs folic acid 0.8 mg capsule 0.8 mg PO DAILY #90 caps 11/07/23 levothyroxine 25 mcg tablet 25 mcg PO DAILY #90 tabs 11/07/23 fluticasone 250 mcg-salmeterol 50 1 ea inhalation BID 90 days #3 11/27/23 mcg/dose blistr powdr for inhalers inhalation (Wixela Inhub) clonazepam 0.5 mg tablet 0.5 mg PO BID PRN 12/20/23 anxiety/agitation 60 days #120 tabs albuterol sulfate 90 mcg/actuation 2 puff inhalation Q6H PRN 12/26/23 aerosol inhaler shortness of breath or wheezing #6.7 grams montelukast 10 mg tablet 10 mg PO DAILY 90 days #90 tabs 01/10/24 Allergies Allergy/AdvReac Type Severity Reaction Status Date / Time Penicillins [PENICILLINS] Allergy Intermediate HIVES Verified 01/16/24 16:01 carbamazepine [From Tegretol] Allergy Mild HIVES Verified 01/16/24 16:01 diflunisal [From Dolobid] Allergy Mild HIVES Verified 01/16/24 16:01 erythromycin base Allergy Mild HIVES Verified 01/16/24 16:01 [From Edwin-Tab] phenytoin [From Dilantin] Allergy Mild RASH,HIVES Verified 01/16/24 16:01 piroxicam [From Feldene] Allergy Mild HIVES Verified 01/16/24 16:01 sulfamethoxazole Allergy Mild HIVES Verified 01/16/24 16:01 [From Bactrim] trimethoprim [From Bactrim] Allergy Mild HIVES Verified 01/16/24 16:01 valproic acid [From Depakene] Allergy Mild HIVES Verified 01/16/24 16:01 Depakene Allergy Unknown Rash Verified 01/16/24 16:01 hydrochlorothiazide Allergy Unknown rash Verified 01/16/24 16:01 [HYDROCHLOROTHIAZIDE] lisinopril [LISINOPRIL] Allergy Unknown rash Verified 01/16/24 16:01 penicillin V Allergy Unknown Rash Verified 01/16/24 16:01 Sulfa (Sulfonamide Allergy Unknown Rash Verified 01/16/24 16:01 Antibiotics) codeine [Codeine] AdvReac Intermediate NAUSEA & Verified 01/16/24 16:01 VOMITING rash ENVIRONMENTAL Allergy Intermediate ASTHMA,LOSES Uncoded 01/16/24 16:01 VOICE TAPE,PLASTIC Allergy Intermediate RASH Uncoded 01/16/24 16:01 surgical tape Allergy Unknown unknown Uncoded 01/16/24 16:01 Review of Systems 2 Review of Systems: Review of systems: General: Patient denies any fever chills recent illness or falls Musculoskeletal: Denies back pain or body aches or other injuries HEENT: denies headache, runny nose, ear pain Respiratory: denies shortness of breath, cough Cardiovascular: no chest pain or palpitations : denies dysuria, frequency Abdomen: no nausea vomiting denies abdominal pain Extremities: no swelling, no pain Skin: no diaphoresis Yes all other systems are reviewed and are negative PMFSH Past Medical History Medical History Hyperlipemia Osteoporosis CKD (chronic kidney disease) Hypothyroid Ataxic gait Seizures Asthma Depression Conversion disorder HTN (hypertension) Muscle weakness Hypothyroid Conversion disorder with attacks or seizures, acute episode, with psychological stressor Surgical History History of right knee surgery History of lobectomy of thyroid History of arthroscopy of right knee History of ankle surgery History of arthroscopy of left knee History of hysterectomy Family History Family History Father CVD (cardiovascular disease) Stomach ulcer Cardiac arrest H/O heart bypass surgery Mother History of heart attack CHF (congestive heart failure) Lung cancer Diabetes mellitus High cholesterol HTN (hypertension) Hypothyroidism Sister Lung cancer Substance use disorder Brother Colitis Sister No problems noted. Sister Obstetric pulmonary blood clot embolism, antepartum Paternal Aunt Mental health disorder Substance use disorder Maternal Grandmother Mental health disorder Family/Other Substance use disorder Social History Social History Household Members: Family Household Members Other:: brother, 2 cats Housing: House Alcohol intake: never Patient Tobacco Use Status: Never used Tobacco e-Cigarette/Vaping Use: Never Used Second Hand Smoke Exposure: No Advance Directives: No Advance Directives Information Provided: No Do you have a plan to hurt others: No Plan Current occupational status: disabled Cognitive needs: No Hearing needs: No Vision needs: No Physical Exam 2 Vital Signs: Vital Signs: Last Vital Signs Temp 96.6 F L 01/16/24 16:10 Pulse 73 01/16/24 16:10 Resp 18 01/16/24 16:10 BP 179/100 H 01/16/24 16:10 Pulse Ox 98 01/16/24 16:10 O2 Del Method Room Air 01/16/24 16:10 BMI result Body Mass Index 21.8 Neurological exam: CN II- XII tested. Patient is alert and oriented to person place and time. Patient has no dysphagia or dysarthia, denies good vision in all four vision jeffries no nystagmus on exam, good strength to upper and lower extremities with normal reflexes to brachioradialis, wrist, patella and achilles. Negative romberg, good finger to nose and heel to wilcox. General: Well-appearing well-nourished in no signs of distress HEENT: Normocephalic atraumatic Neck: No signs of JVD, no masses no tenderness or lymphadenopathy Cardiovascular: Regular rate and rhythm Respiratory: Clear to auscultation bilaterally Abdomen: Soft nontender no masses Extremities: Normal pedal pulses no signs of edema Skin: Dry warm no rashes Back: No tenderness full ROM Course Course Course Narrative: [id number] patient does have conversion disorder with the current syncope as presenting sign labs are unremarkable I do feel comfortable discharging the patient home at this time. Medications Administered Generic Name Dose Route Start Last Admin Trade Name [place]hog[place] PRN Reason Stop Dose Admin Sodium Chloride 1,000 mls @ 999 mls/hr 01/16/24 17:00 01/16/24 17:35 Ns IV 01/16/24 18:00 999 mls/hr .Q1H1M AAN Administration Medical Decision Making Medical Decision Making [facility] Narrative: Patient does not recall the incident but has completely normal neuro exam at this time patient looks well labs were sent I will give patient is fluids I will feed the patient unsure if this is conversion for seizure versus syncope both normal labs normal vitals I do feel comfortable sending the patient home. Differential Diagnosis Differential Diagnoses: The differential diagnosis associated with the presentation includes Syncope versus seizure versus dehydration versus electrolyte abnormality versus anemia versus arrhythmia Lab Data [facility] Lab Attestation statement: I reviewed the patient's lab results. 01/16/24 16:29 01/16/24 16:29 Labs: Lab Results 01/16/24 01/16/24 Range/Units 16:29 16:41 WBC 7.6 (4.8-10.8) X10*3/uL RBC 4.41 (4.20-5.50) X10*6/uL Hgb 13.4 (12.0-16.0) g/dl Hct 41.9 (37.0-47.0) % MCV 95.0 (80.0-98.0) fL MCH 30.4 (27.0-33.0) pg MCHC 32.0 (31.0-35.0) g/dl RDW 14.5 (11.0-16.0) % Plt Count 291 (160-400) X10*3/uL MPV 9.8 (9.4-12.3) fL Immature Gran % (Auto) 0.7 H (0.0-0.4) % Neut % (Auto) 71.0 (45-73) % Lymph % (Auto) 17.4 L (20-40) % [place] % (Auto) 6.6 (2-11) % Eos % (Auto) 3.4 (0-4) % Baso % (Auto) 0.9 (0-2) % Lymph # (Auto) 1.3 (1.2-4.9) X10*3/uL [place] # (Auto) 0.5 (0.1-1.2) X10*3/uL Eos # (Auto) 0.3 (0.0-0.4) X10*3/uL Baso # (Auto) 0.1 (0.0-0.2) X10*3/uL Abs Immat Gran (auto) 0.05 H (0.00-0.03) X10*3/uL Absolute Neuts (auto) 5.4 (2.0-8.3) x10*3/uL Absolute Nucleated RBC 0.000 (0.0-0.012) X10*3/uL Nucleated RBC % (auto) 0.0 (0.0-0.2) /100WBC Sodium 141 (135-145) mmol/L Potassium 3.9 (3.3-5.1) mmol/L Chloride 110 H (96-108) mmol/L Carbon Dioxide 25 (22-29) mmol/L Anion Gap 10 L (12-20) BUN 13 (9-16) mg/dL Creatinine 0.88 (0.5-1.4) mg/dL Estim Creat Clear Calc 55.7 Estimated GFR > 60 POC Glucose 122 H (60-115) mg/dL Random Glucose 140 H (60-115) mg/dL Calcium 9.7 (8.4-10.2) mg/dL Total Bilirubin 0.3 (0.0-1.0) mg/dL AST 34 H (5-31) U/L ALT 31 (0-31) U/L Alkaline Phosphatase 91 (39-117) U/L Troponin I High Sens < 2.7 (<3.5-17.0) ng/L Total Protein 6.9 (6.5-8.0) g/dL Albumin 3.8 (3.5-5.0) g/dL Influenza Type A (PCR) NEGATIVE (Negative) Influenza Type B (PCR) NEGATIVE (Negative) RSV RNA Qual (PCR) NEGATIVE (Negative) SARS-CoV-2 RNA (RT-PCR) NEGATIVE (Negative) Independent Interpretation I performed an independent interpretation of an: EKG and Plain X-Ray Radiology Impression Discussion of test interpretation with radiology: I have reviewed the radiologist's reading. External Record Review External record reviewed: Inpatient record, Office record, Outpatient record and Prior outpatient labs Chronic Conditions Patient?s care impacted by: Diabetes and Hypertension Social Determinants Patient?s care significantly limited by Social Determinants of Health including: Inadequate housing Core Measures AMI core measures followed: Yes Discharge Plan Discharge Clinical Impression: Syncope, Conversion disorder with attacks or seizures, acute episode, with psychological stressor Patient Disposition: Home, Self-Care Instructions: Near Syncope (ED) Additional Instructions: You were seen today after nearly passing out after getting mammogram. You had labs and x-rays done which were all unremarkable. Please call follow up with her doctor Prescriptions: No Action polyethylene glycol 3350 [Miralax] 17 gram/dose powder 17 g PO DAILY PRN (Reason: constipation) 90 Days Qty: 510 0RF (DME) [facility] unit See Rx Instructions .Route .MEDSUPPLY Qty: 1 0RF Rx Instructions: As directed magnesium oxide 400 mg (241.3 mg magnesium) tablet 400 mg PO BEDTIME 90 Days Qty: 90 1RF risedronate 35 mg tablet 35 mg PO QWEEK Qty: 4 11RF Emgality Pen 120 mg/mL pen injector 120 mg subcut ONCE 30 Days Qty: 1 6RF riboflavin (vitamin B2) 100 mg tablet 100 mg PO DAILY 90 Days Qty: 90 1RF atorvastatin 80 mg tablet 80 mg PO DAILY 90 Days Qty: 90 1RF fluticasone propionate 50 mcg/actuation spray,suspension 1 spray intranasal DAILY 90 Days Qty: 48 1RF Rx Instructions: administer into each nostril topiramate 100 mg tablet 100 mg PO BID 90 Days Qty: 180 1RF fluoxetine 20 mg capsule 60 mg PO DAILY 90 Days Qty: 270 1RF levothyroxine 25 mcg tablet 25 mcg PO DAILY Qty: 90 1RF ezetimibe 10 mg tablet 10 mg PO DAILY Qty: 90 0RF cholecalciferol (vitamin D3) 50 mcg (2,000 unit) capsule 50 mcg PO DAILY 90 Days Qty: 90 1RF folic acid 0.8 mg capsule 0.8 mg PO DAILY Qty: 90 1RF fludrocortisone 0.1 mg tablet 0.1 mg PO DAILY 90 Days Qty: 90 1RF fluticasone propion-salmeterol [Wixela Inhub] 250-50 mcg/dose blister with device 1 ea inhalation BID 90 Days Qty: 3 4RF clonazepam 0.5 mg tablet 0.5 mg PO BID PRN (Reason: anxiety/agitation) 60 Days Qty: 120 1RF albuterol sulfate 90 mcg/actuation HFA aerosol inhaler 2 puff inhalation Q6H PRN (Reason: shortness of breath or wheezing) Qty: 6.7 0RF montelukast 10 mg tablet 10 mg PO DAILY 90 Days Qty: 90 1RF aspirin [Adult Low Dose Aspirin] 81 mg tablet,delayed release (DR/EC) 81 mg PO DAILY betamethasone dipropionate 0.05 % cream 1 appl topical DAILY 14 Days Qty: 45 0RF albuterol sulfate 2.5 mg /3 mL (0.083 %) solution for nebulization 2.5 mg inhalation QID PRN (Reason: shortness of breath or wheezing) 90 Days Qty: 180 0RF Rx Instructions: for neb meclizine 25 mg tablet 25 mg PO DAILY PRN (Reason: dizziness) Qty: 60 0RF pseudoephedrine HCl [Sudafed 12 Hour] 120 mg tablet extended release 120 mg PO Q12H PRN (Reason: nasal congestion) Qty: 20 0RF oxymetazoline [Afrin (oxymetazoline)] 0.05 % spray,non-aerosol 2 spray intranasal Q12H PRN (Reason: nasal congestion) 3 Days Qty: 15 0RF ibuprofen 600 mg tablet 600 mg PO TID PRN (Reason: headache) 30 Days Qty: 60 1RF Rx Instructions: w/ food sumatriptan succinate 100 mg tablet See Rx Instructions PO .COMPLEX 30 Days Qty: 10 1RF Rx Instructions: take 1 tab at onset of headache; if no relief, may repeat 1 tab after at least 2 hrs; max = 2 tabs/24 hrs PO Print Language: Hong Konger
[2024-01-16 16:45] LABS: Glucose, Whole Blood 122 mg/dL (60-115)
[2024-01-16 16:51] LABS: Alanine Aminotransferase 31 U/L (0-31); Albumin Level 3.8 g/dL (3.5-5.0); Alkaline Phosphatase 91 U/L (39-117); Anion Gap 10 (12-20); Aspartate Amino Transferase 34 U/L (5-31); Bilirubin Total 0.3 mg/dL (0.0-1.0); Blood Urea Nitrogen 13 mg/dL (9-16); Calcium 9.7 mg/dL (8.4-10.2); Carbon Dioxide 25 mmol/L (22-29); Chloride 110 mmol/L (96-108); Creatinine Clr Calc Pharmacy 55.7; Estimated Glomerular Filt Rate > 60; Glucose Random 140 mg/dL (60-115); Potassium 3.9 mmol/L (3.3-5.1); Sodium 141 mmol/L (135-145); Total Protein 6.9 g/dL (6.5-8.0)
[2024-01-16 17:00] LABS: Troponin-I High Sensitivity < 2.7 ng/L (<3.5-17.0)
[2024-01-16 17:19] LABS: Influenza A PCR NEGATIVE (Negative); Influenza B PCR NEGATIVE (Negative); Resp Syncy Virus RNA Qual PCR NEGATIVE (Negative); SARS COV2 PCR INHOUSE NEGATIVE (Negative)
[2024-01-16] MEDS: 0.9 % Sodium Chloride 1,000 ML 999 ML IV (17:35)
--- NOTE | 2024-01-16 17:35 | PC.NURSE ---
20gIV placed in the left forearm - IVF administered per provider order.
[2024-01-16 17:39] VITALS: O2SAT 99
[2024-01-16 18:07] VITALS: BP 144/60; PULSE 63; RESP 12; TEMP 36.4; O2SAT 100
[2024-01-16 18:42] VITALS: BP 144/60; PULSE 63; RESP 12; TEMP 36.4; O2SAT 100
== END 2024-01-16 18:49 | disposition home or self-care (01) ==
PROVIDERS: Emergency Provider Student in an Organized Health Care Education/Training Program; PCP Nurse Practitioner Family
DX: R55 Syncope and collapse (principal); F43.9 Reaction to severe stress, unspecified; R92.2 Inconclusive mammogram; R94.31 Abnormal electrocardiogram [ECG] [EKG]; R11.2 Nausea with vomiting, unspecified; Z03.818 Encounter for observation for suspected exposure to other biological agents ruled out; Z79.899 Other long term (current) drug therapy
CPT/HCPCS: 0241U; 36415; 71046; 76642; 77062; 77066; 80053; 82947; 84484; 85025; 93005; 96360; 99284; 99285

== ENCOUNTER → 2024-01-16 16:11 | Outpatient (BNV) | payer OTHER, SELFPAY | PROVIDERS: Emergency Provider Student in an Organized Health Care Education/Training Program; PCP Nurse Practitioner Family; Visit Provider Internal Medicine Cardiovascular Disease | DX: R55 Syncope and collapse (principal); R94.31 Abnormal electrocardiogram [ECG] [EKG] | CPT/HCPCS: 93010 ==

== ENCOUNTER 2024-01-17 12:36 | Outpatient (AMB) | payer OTHER, SELFPAY ==
[2024-01-17 12:41] VITALS: BP 140/62; PULSE 66; O2SAT 98; BMI 19.7
--- NOTE | 2024-01-17 12:41 | MHC.PC.OV ---
Vital Signs 01/17/24 12:41 Height 5 ft 6 in Weight 122 lb 6 oz BMI 19.7 BP 140/62 H Blood Pressure Location Lt brachial Position Sitting Pulse 66 Pulse Source Pulse Oximeter Pulse Oximetry (%) 98 Intake Visit Reasons: Followup Intake Note: pt is here for follow up from ED [employer] Inspector Required: No Accompanied by: Self / Same As Patient Allergies Penicillins [PENICILLINS] Allergy (Intermediate, Verified 01/17/24 13:48) HIVES carbamazepine [From Tegretol] Allergy (Mild, Verified 01/17/24 13:48) HIVES diflunisal [From Dolobid] Allergy (Mild, Verified 01/17/24 13:48) HIVES erythromycin base [From Edwin-Tab] Allergy (Mild, Verified 01/17/24 13:48) HIVES phenytoin [From Dilantin] Allergy (Mild, Verified 01/17/24 13:48) RASH,HIVES piroxicam [From Feldene] Allergy (Mild, Verified 01/17/24 13:48) HIVES sulfamethoxazole [From Bactrim] Allergy (Mild, Verified 01/17/24 13:48) HIVES trimethoprim [From Bactrim] Allergy (Mild, Verified 01/17/24 13:48) HIVES valproic acid [From Depakene] Allergy (Mild, Verified 01/17/24 13:48) HIVES Depakene Allergy (Unknown, Verified 01/17/24 13:48) Rash hydrochlorothiazide [HYDROCHLOROTHIAZIDE] Allergy (Unknown, Verified 01/17/24 13:48) rash lisinopril [LISINOPRIL] Allergy (Unknown, Verified 01/17/24 13:48) rash penicillin V Allergy (Unknown, Verified 01/17/24 13:48) Rash Sulfa (Sulfonamide Antibiotics) Allergy (Unknown, Verified 01/17/24 13:48) Rash codeine [Codeine] Adverse Reaction (Intermediate, Verified 01/17/24 13:48) NAUSEA & VOMITING rash ENVIRONMENTAL Allergy (Intermediate, Uncoded 01/17/24 13:48) ASTHMA,LOSES VOICE TAPE,PLASTIC Allergy (Intermediate, Uncoded 01/17/24 13:48) RASH surgical tape Allergy (Unknown, Uncoded 01/17/24 13:48) unknown Medication List - Last Reconciled 01/17/24 by PRINCE Muñoz-ANGELO albuterol sulfate 2.5 mg (3 mL) inhalation QID PRN 90 days albuterol sulfate 90 mcg/actuation 2 puffs inhalation Q6H PRN aspirin (Adult Low Dose Aspirin) 81 mg PO DAILY atorvastatin 80 mg PO DAILY 90 days betamethasone dipropionate 0.05% 1 appl topical DAILY 14 days cholecalciferol (vitamin D3) 50 mcg PO DAILY 90 days clonazepam 0.5 mg PO BID PRN 60 days ezetimibe 10 mg PO DAILY fludrocortisone 0.1 mg PO DAILY 90 days fluoxetine 60 mg (3 x 20 mg) PO DAILY 90 days fluticasone propion-salmeterol 250-50 mcg/dose (Wixela Inhub) 1 ea inhalation BID 90 days fluticasone propionate 50 mcg/actuation 1 spray intranasal DAILY 90 days folic acid 0.8 mg PO DAILY galcanezumab-gnlm (Emgality Pen) 120 mg subcut ONCE 30 days ibuprofen 600 mg PO TID PRN 30 days levothyroxine 25 mcg PO DAILY [[employer] unit As directed] magnesium oxide 400 mg PO BEDTIME 90 days meclizine 25 mg PO DAILY PRN montelukast 10 mg PO DAILY 90 days oxymetazoline 0.05% (Afrin (oxymetazoline)) 2 sprays intranasal Q12H PRN 3 days polyethylene glycol 3350 (Miralax) 17 grams PO DAILY PRN 90 days riboflavin (vitamin B2) 100 mg PO DAILY 90 days risedronate 35 mg PO QWEEK sumatriptan succinate take 1 tab at onset of headache; if no relief, may repeat 1 tab after at least 2 hrs; max = 2 tabs/24 hrs PO 30 days topiramate 100 mg PO BID 90 days Tobacco use date assessed: 07/16/23 Fall risk assessment: 2 + Falls in past year Last assessed Fall Risk: 01/17/24 Dental Screening Dental Screen Date: 07/16/23 HPI Followup HPI Details Pt was seen in the ER on 01/15 with syncope. She had a mammogram and shortly after had an episode of syncope and was lowered to the floor. Labs, EKG, and chest XR were unremarkable. Pt is doing better today. Will order labs and UA/culture. She denies fever, chills, and dizziness. Pt's blood pressure is elevated. Will have pt take fludrocortisone every other day rather than daily. Pt's nutrition is poor (according to sister in room today). Will refer to ehs teacher. [facility] Medical History Hyperlipemia Osteoporosis CKD (chronic kidney disease) Hypothyroid Ataxic gait Seizures Asthma Depression Conversion disorder HTN (hypertension) Muscle weakness Hypothyroid Conversion disorder with attacks or seizures, acute episode, with psychological stressor Surgical History History of right knee surgery History of lobectomy of thyroid History of arthroscopy of right knee History of ankle surgery History of arthroscopy of left knee History of hysterectomy Family History Father CVD (cardiovascular disease) Stomach ulcer Cardiac arrest H/O heart bypass surgery Mother History of heart attack CHF (congestive heart failure) Lung cancer Diabetes mellitus High cholesterol HTN (hypertension) Hypothyroidism Sister Lung cancer Substance use disorder Brother Colitis Sister No problems noted. Sister Obstetric pulmonary blood clot embolism, antepartum Paternal Aunt Mental health disorder Substance use disorder Maternal Grandmother Mental health disorder Family/Other Substance use disorder Social History Household Members: Family Household Members Other:: brother, 2 cats Housing: House Alcohol intake: never Patient Tobacco Use Status: Never used Tobacco e-Cigarette/Vaping Use: Never Used Second Hand Smoke Exposure: No Current occupational status: disabled Cognitive needs: No Hearing needs: No Vision needs: No Questionnaire PHQ-9 Over the last 2 weeks, how often have you been bothered by any of the following problems? 1. Little interest or pleasure in doing things: not at all 2. Feeling down, depressed, or hopeless: several days 4. Feeling tired or having little energy: several days 42110 - PHQ-9 Billing: Patient declined-do not bill Source: Developed by Drs. Mirza Corona, Jelena Walton, Arnoldo Gonzalez and colleagues, with an educational liu from [employer]. Thrive Questionnaire Date Thrive assessed: 01/17/24 I am a: Patient What is your living situation today?: I have a steady place to live Within the past 12 months, did the food you bought not last and you didn't have the money to get more?: Never true Within the past 12 months, did you worry whether your food would run out before you got money to buy more?: Never true Do you have trouble paying for medicines?: No Do you have trouble getting transportation to medical appointments?: I choose not to answer this question Do you have trouble paying your heating and electricity bill?: No Do you have trouble taking care of your child, family member or friend?: No Do you have trouble with day-to-day activities such as bathing, preparing meals, shopping, managing finances, etc.?: No Are you currently unemployed and looking for a job?: I choose not to answer this question Are you interested in more education?: No Please select the resources that you would like help with: Housing/Snf Currently or been in a relationship where the following occur: No concerns reported THRIVE Score: 0 AUDIT C Alcohol Use Questionnaire (AUDIT-C) 1. How often do you have a drink containing alcohol?: Never 3. How often do you have six or more drinks on one occasion?: Never Total Score: 0 Score Reviewed/Action Taken: Yes KATHRINE-7 AMB Questionnaire KATHRINE-7 Date KATHRINE - 7 assessed: 01/17/24 Source: Developed by Drs. Mirza Corona, Jelena Walton, Arnoldo Gonzalez and colleagues, with an educational liu from [employer]. KATHRINE-7 Assessment Billing KATHRINE-7 Assessment Tool: pt declined-do not bill Review of Systems Const Reports as per HPI Physical exam (Primary Care) Vital Signs: Last Vital Signs Pulse 66 01/17/24 12:41 BP 140/62 H 01/17/24 12:41 Pulse Ox 98 01/17/24 12:41 BMI result Body Mass Index 19.7 Tobacco/Smoking Status: Tobacco use Status Tobacco use date assessed 07/16/23 01/17/24 12:43 Patient Tobacco Use Status Never used Tobacco 01/17/24 12:43 e-Cigarette/Vaping Use Never Used 01/17/24 12:43 Thrive Assessment: Date of Thrive Assessment Date Thrive assessed 01/17/24 01/17/24 12:48 Currently or been in a relationship where the following occur: No concerns reported Const General: cooperative Orientation/consciousness: patient oriented x3 Resp Effort & Inspection: normal respiratory effort Auscultation: clear to auscultation bilaterally Cardio Rate: regular rate Rhythm: regular rhythm Heart sounds: S1 normal heart sound present and S2 normal heart sound present Neuro Other: hyper reflexive tricep and patellar DTRs General: patient oriented x3 and CN's II-XI intact bilaterally Psych Appearance: grossly normal Mental Status: mental status grossly normal Speech and movement: Normal speech and movement present Affect: normal affect Attitude: cooperative Thought process: Normal thought process present Thought content: Normal thought content present Insight: Good insight present (Psych) Judgement: Good judgement present (Psych) Assessment and Plan Assessment & Plan (1) Falls: Code(s): W19.XXXA - Unspecified fall, initial encounter Plan: fludrocortisone decrease to tano other day. (2) Poor nutrition: Code(s): E63.9 - Nutritional deficiency, unspecified Plan: referred to dietary Plan The patient agreed to the use of a medical fee clerk for this encounter. Scribed for PRINCE Rosen-BC by Lulu Avila medical fee clerk, on 01/17/2024 at 12:55 EST. Orders: Orders UA CC w/rflx Micro + Cult Today W19.XXXA - Unspecified fall, initial encounter Complete Blood Count Auto Diff Today W19.XXXA - Unspecified fall, initial encounter Comprehensive Met. Panel Today W19.XXXA - Unspecified fall, initial encounter Urine Culture Today W19.XXXA - Unspecified fall, initial encounter Referrals Nutrition/Dietitian Referral E63.9 - Nutritional deficiency, unspecified Medications: Discontinued pseudoephedrine HCl ER (Sudafed 12 Hour) Discontinued Reason: Doctor's Order 120 mg PO Q12H PRN 20 tabs 0RF nasal congestion J30.2 - Other seasonal allergic rhinitis Coding Level of Care Code Est Pt Level 3 (75678) Diagnoses Falls W19.XXXA Poor nutrition E63.9
== END 2024-01-17 15:56 | disposition home or self-care (01) ==
PROVIDERS: PCP Nurse Practitioner Family; Visit Provider Nurse Practitioner Family
DX: E63.9 Nutritional deficiency, unspecified (principal); W19.XXXA Unspecified fall, initial encounter
CPT/HCPCS: 99213

== ENCOUNTER 2024-01-18 11:25 | Outpatient (REF) | payer OTHER, SELFPAY ==
[2024-01-18 13:05] LABS: Appearance Urine Clear; Color Urine Yellow; Glucose Urine UA Negative (Negative); Leukocyte Esterase Urine Trace (Negative); Nitrite Urine Negative (Negative); PH 7.5 (5.0-9.0); Specific Gravity - Urine <= 1.005 (1.005-1.025); UMIC TRIGGER UACC YES; Urine Blood Negative (Negative); Urine Ketones Negative (Negative); Urine Protein Negative (Neg-Trace)
[2024-01-18 13:18] LABS: Bacteria Urine None Seen (None Seen); Hyaline Casts Urine 0-2 /LPF (0-2); RBC Urine 0-2 /HPF (0-2); Squamous Epithelial Cell Urine 0-2 /HPF (0-2); WBC Urine 0-5 /HPF (0-5)
== END 2024-01-18 11:26 | disposition home or self-care (01) ==
LOC: HO.HMGCLDS 11:25
PROVIDERS: PCP Nurse Practitioner Family; Visit Provider Nurse Practitioner Family
DX: Z91.81 History of falling (principal)
CPT/HCPCS: 81001; 81003; 87086

== ENCOUNTER 2024-02-15 09:37 | Outpatient (REF) | payer OTHER, SELFPAY ==
--- NOTE | ~2024-02-15 | US_ITS ---
EXAMINATION: US ABDOMEN COMPLETE CLINICAL INFORMATION: Abnormal levels of other serum enzymes. COMPARISON: Ultrasound abdomen complete 08/23/2023. TECHNIQUE: Real-time imaging of the abdominal viscera. FINDINGS: PANCREAS: Normal. ABDOMINAL AORTA: The proximal, mid, and distal segments are normal in caliber. INFERIOR VENA CAVA: Visualized portions are normal. LIVER: Increased hepatic parenchymal heterogeneity and echogenicity. No intrahepatic biliary ductal dilatation. Redemonstration of a 1.1 x 1.2 x 1.4 cm complicated cyst in the medial right hepatic lobe with lobulated contour, peripheral hyperechoic foci and possibly incomplete peripheral septations previously 1.3 x 1.2 x 1.3 cm on 08/23/2023. Redemonstration of a 0.5 x 0.5 x 0.6 cm hyperechoic lesion in the right hepatic lobe, previously 0.5 x 0.5 x 0.5 cm on 08/23/2023. GALLBLADDER: Normal. The gallbladder is physiologically distended without evidence of stones, sludge, polyps, wall thickening or pericholecystic fluid. COMMON BILE DUCT: Normal in caliber measuring 0.3 cm in diameter. RIGHT KIDNEY: Stable 0.7 x 0.5 x 0.7 cm hyperechoic lesion in the lateral cortex of the interpolar kidney. No hydronephrosis or renal calculi. The kidney measures 8.0 cm in maximum dimension. LEFT KIDNEY: Normal. No hydronephrosis. No renal calculi or focal parenchymal lesions. The kidney measures 8.5 cm in maximum dimension. SPLEEN: Splenule measuring 1 cm. The spleen measures 7.4 cm in maximum dimension. FREE FLUID: None. US/US abdomen complete IMPRESSION: 1. Increased hepatic parenchymal heterogeneity and echogenicity which could be seen in the setting of steatosis or hepatocellular disease. 2. Redemonstration of a complicated cyst in the medial right hepatic lobe and a hyperechoic lesion in the right hepatic lobe which are unchanged in size and morphology since 08/23/2023, the latter possibly representing a hemangioma. Nevertheless, in view of the background suggestive of hepatocellular disease, recommend further characterization with abdominal MRI with and without intravenous contrast. 3. A 0.7 cm hyperechoic lesion in the lateral cortex of the right kidney is unchanged and could represent a small angiomyolipoma. Electronically signed by: Marcia Elder MD 02/21/2024 01:12 PM EDT
== END 2024-02-15 09:38 | disposition home or self-care (01) ==
LOC: HO.HMGCX 09:37
PROVIDERS: PCP Nurse Practitioner Family; Visit Provider Nurse Practitioner Family
DX: R74.8 Abnormal levels of other serum enzymes (principal); D17.9 Benign lipomatous neoplasm, unspecified; K76.89 Other specified diseases of liver
CPT/HCPCS: 76700

== ENCOUNTER 2024-02-21 10:58 | Outpatient (AMB) | payer OTHER, SELFPAY ==
--- NOTE | 2024-02-21 11:13 | A.OFFVIS_ITS ---
VS Expanded 02/21/24 11:14 02/26/24 13:13 Height 5 ft 6 in 5 ft 6 in Weight 119 lb 14.903 oz 120 lb BMI 19.4 19.4 Intake Visit Reasons: Nutritional deficiency, unspecified/CONFIRMED Allergies Penicillins [PENICILLINS] Allergy (Intermediate, Verified 01/17/24 13:48) HIVES carbamazepine [From Tegretol] Allergy (Mild, Verified 01/17/24 13:48) HIVES diflunisal [From Dolobid] Allergy (Mild, Verified 01/17/24 13:48) HIVES erythromycin base [From Edwin-Tab] Allergy (Mild, Verified 01/17/24 13:48) HIVES phenytoin [From Dilantin] Allergy (Mild, Verified 01/17/24 13:48) RASH,HIVES piroxicam [From Feldene] Allergy (Mild, Verified 01/17/24 13:48) HIVES sulfamethoxazole [From Bactrim] Allergy (Mild, Verified 01/17/24 13:48) HIVES trimethoprim [From Bactrim] Allergy (Mild, Verified 01/17/24 13:48) HIVES valproic acid [From Depakene] Allergy (Mild, Verified 01/17/24 13:48) HIVES Depakene Allergy (Unknown, Verified 01/17/24 13:48) Rash hydrochlorothiazide [HYDROCHLOROTHIAZIDE] Allergy (Unknown, Verified 01/17/24 13:48) rash lisinopril [LISINOPRIL] Allergy (Unknown, Verified 01/17/24 13:48) rash penicillin V Allergy (Unknown, Verified 01/17/24 13:48) Rash Sulfa (Sulfonamide Antibiotics) Allergy (Unknown, Verified 01/17/24 13:48) Rash codeine [Codeine] Adverse Reaction (Intermediate, Verified 01/17/24 13:48) NAUSEA & VOMITING rash ENVIRONMENTAL Allergy (Intermediate, Uncoded 01/17/24 13:48) ASTHMA,LOSES VOICE TAPE,PLASTIC Allergy (Intermediate, Uncoded 01/17/24 13:48) RASH surgical tape Allergy (Unknown, Uncoded 01/17/24 13:48) unknown Nutrition Presentation Details: Pt presents for MNT for unspecified nutritional deficiencies Pt presents by self during this appt. Pt reports her sister requested the appt because her siblings reports she is not eating enough. Pt reports having small meals throughout the day and sometimes has an ensure as a meal replacement Pt reports living with brother who makes meals, and Pt also prepares meals for herself consisting of sand or cereals. Typical meal AM- Drinks juice 10-1 pm Sand (1/2 1ham/1cheese , and water or juice or diet soda snack on yogurt klondike ice cream dinner: potato/3 ozchicken, squash, water or juice snack:crackers plain, water or juice Est 36 g prot /d Etoh: --- smoking--- physical activity: uses walker Weight fluctuates between 122-119 lbs. BS Monitoring Most Recent Diabetes Results: Creatinine 0.88 mg/dL (0.5-1.4) 01/16/24 Blood Urea Nitrogen 13 mg/dL (9-16) 01/16/24 Sodium 141 mmol/L (135-145) 01/16/24 Potassium 3.9 mmol/L (3.3-5.1) 01/16/24 Chloride 110 mmol/L (96-108) H 01/16/24 Carbon Dioxide 25 mmol/L (22-29) 01/16/24 Calcium 9.7 mg/dL (8.4-10.2) 01/16/24 AST 34 U/L (5-31) H 01/16/24 ALT 31 U/L (0-31) 01/16/24 Total Protein 6.9 g/dL (6.5-8.0) 01/16/24 Albumin 3.8 g/dL (3.5-5.0) 01/16/24 TCJ-Xtivfys-Rl.Jeor Equation Height: 5 ft 6 in Weight: 120 lb Resting Metabolic Rate: 1086.12 Calculated Activity Level: Mild Activity Calories Needed to Maintain Weight: 1493.42 Diagnosis Nutrition problem #1: inadequate protein energy As related to (etiology) #1: lack of nutrit education As evidenced by (sign/symptom) #1: food recall [facility] Medical History (Reviewed 01/17/24 @ 13:48 by PRINCE Muñ[facility]UN[facility]) Hyperlipemia Osteoporosis CKD (chronic kidney disease) Hypothyroid Ataxic gait Seizures Asthma Depression Conversion disorder HTN (hypertension) Muscle weakness Hypothyroid Conversion disorder with attacks or seizures, acute episode, with psychological stressor Surgical History History of right knee surgery History of lobectomy of thyroid History of arthroscopy of right knee History of ankle surgery History of arthroscopy of left knee History of hysterectomy Family History Father CVD (cardiovascular disease) Stomach ulcer Cardiac arrest H/O heart bypass surgery Mother History of heart attack CHF (congestive heart failure) Lung cancer Diabetes mellitus High cholesterol HTN (hypertension) Hypothyroidism Sister Lung cancer Substance use disorder Brother Colitis Sister No problems noted. Sister Obstetric pulmonary blood clot embolism, antepartum Paternal Aunt Mental health disorder Substance use disorder Maternal Grandmother Mental health disorder Family/Other Substance use disorder Social History Household Members: Family Household Members Other:: brother, 2 cats Housing: House Alcohol intake: never Patient Tobacco Use Status: Never used Tobacco e-Cigarette/Vaping Use: Never Used Second Hand Smoke Exposure: No Current occupational status: disabled Cognitive needs: No Hearing needs: No Vision needs: No Assessment & Plan Assessment & Plan (1) Poor nutrition: Code(s): E63.9 - Nutritional deficiency, unspecified Category: Medical Plan: Wt: 54 Kg ( 03/04 ) Est kcal needs as per MSJ: 1500 (40% carb, 30% protein/fat) Est fluid needs as per 25-30 ml/d: 1600 Est prot per day as per 1 g/kg bw: 54 Recommend fiber intake : 8-10 g per day and gradually increase to 25-28 g per day for women and 35-38 g for men or as tolerated Recommend sodium intake per day : less than 2000 mg Educated patient on: ( R = reviewed V = verbalizes understanding N/R = needs review N/A = not applicable * Food sources of carbohydrate, adequate serving sizes and its role in various health conditions: R * Differences between complex carbohydrates a simple carbohydrates, role of fiber in diet: R V N/R * Lean protein sources of foods: R * Differences between types of fats and role in diet (mono on saturated fat fatty acids, saturated fatty acids, trans fats): R V N/R * Food sources of sodium in salt and healthy modifications for heart health in kidney health: R V R/V * Vitamins and minerals: R V N/R * Healthy plate method concept: R * Physical activity: Benefits a precaution: R V N/R Patient Instructions: Choose milk or yogurt or fruit with peanut butter in AM Choose fruit in place of juice Have 1/2 sandwich and salad or vegetable of choice or marquez/lentil soup and 1/2 sand following healthy plate method - combination Coding Level of Care Code Nutr Indiv Intake (81747) Diagnoses Poor nutrition E63.9 Time Spent (min) 30
[2024-02-21 11:14] VITALS: BMI 19.4
[2024-02-26 13:13] VITALS: BMI 19.4
== END 2024-02-21 11:55 | disposition home or self-care (01) ==
PROVIDERS: PCP Nurse Practitioner Family; Visit Provider Dietitian, Registered
DX: E63.9 Nutritional deficiency, unspecified (principal)

== ENCOUNTER → 2024-02-21 10:58 | Outpatient (BNVA) | payer OTHER, SELFPAY | PROVIDERS: PCP Nurse Practitioner Family; Visit Provider Dietitian, Registered | DX: E63.9 Nutritional deficiency, unspecified (principal) | CPT/HCPCS: 97802 ==

== ENCOUNTER 2024-03-06 10:38 | Outpatient (AMB) | payer OTHER, SELFPAY ==
--- NOTE | 2024-03-06 11:01 | A.OFFVIS_ITS ---
Vital Signs 03/06/24 11:02 Height 5 ft 6 in Weight 119 lb BMI 19.2 BP 90/58 L Blood Pressure Location Rt brachial Position Sitting Pulse 69 Pulse Source Doppler Pulse Oximetry (%) 98 Oxygen Delivery Method Room Air Intake Visit Reasons: Shortness of breath Allergies Penicillins [PENICILLINS] Allergy (Intermediate, Verified 03/06/24 11:07) HIVES carbamazepine [From Tegretol] Allergy (Mild, Verified 03/06/24 11:07) HIVES diflunisal [From Dolobid] Allergy (Mild, Verified 03/06/24 11:07) HIVES erythromycin base [From Edwin-Tab] Allergy (Mild, Verified 03/06/24 11:07) HIVES phenytoin [From Dilantin] Allergy (Mild, Verified 03/06/24 11:07) RASH,HIVES piroxicam [From Feldene] Allergy (Mild, Verified 03/06/24 11:07) HIVES sulfamethoxazole [From Bactrim] Allergy (Mild, Verified 03/06/24 11:07) HIVES trimethoprim [From Bactrim] Allergy (Mild, Verified 03/06/24 11:07) HIVES valproic acid [From Depakene] Allergy (Mild, Verified 03/06/24 11:07) HIVES Depakene Allergy (Unknown, Verified 03/06/24 11:07) Rash hydrochlorothiazide [HYDROCHLOROTHIAZIDE] Allergy (Unknown, Verified 03/06/24 11:07) rash lisinopril [LISINOPRIL] Allergy (Unknown, Verified 03/06/24 11:07) rash penicillin V Allergy (Unknown, Verified 03/06/24 11:07) Rash Sulfa (Sulfonamide Antibiotics) Allergy (Unknown, Verified 03/06/24 11:07) Rash codeine [Codeine] Adverse Reaction (Intermediate, Verified 03/06/24 11:07) NAUSEA & VOMITING rash ENVIRONMENTAL Allergy (Intermediate, Uncoded 01/17/24 13:48) ASTHMA,LOSES VOICE TAPE,PLASTIC Allergy (Intermediate, Uncoded 01/17/24 13:48) RASH surgical tape Allergy (Unknown, Uncoded 01/17/24 13:48) unknown HPI HPI Shortness of breath: Details: 69-year-old lady, nonsmoker, Now followed for asthma and environmental allergies. Patient continues on generic Wixela and albuterol MDI / nebs with reasonable control of her symptoms. she does complain of an acute exacerbation now symptomatic with dyspnea, mild wheezing, and significant fatigue. [facility] Medical History Hyperlipemia Osteoporosis CKD (chronic kidney disease) Hypothyroid Ataxic gait Seizures Asthma Depression Conversion disorder HTN (hypertension) Muscle weakness Hypothyroid Conversion disorder with attacks or seizures, acute episode, with psychological stressor Surgical History History of right knee surgery History of lobectomy of thyroid History of arthroscopy of right knee History of ankle surgery History of arthroscopy of left knee History of hysterectomy Family History Father CVD (cardiovascular disease) Stomach ulcer Cardiac arrest H/O heart bypass surgery Mother History of heart attack CHF (congestive heart failure) Lung cancer Diabetes mellitus High cholesterol HTN (hypertension) Hypothyroidism Sister Lung cancer Substance use disorder Brother Colitis Sister No problems noted. Sister Obstetric pulmonary blood clot embolism, antepartum Paternal Aunt Mental health disorder Substance use disorder Maternal Grandmother Mental health disorder Family/Other Substance use disorder Social History Household Members: Family Household Members Other:: brother, 2 cats Housing: House Alcohol intake: never Patient Tobacco Use Status: Never used Tobacco e-Cigarette/Vaping Use: Never Used Second Hand Smoke Exposure: No Current occupational status: disabled Cognitive needs: No Hearing needs: No Vision needs: No Review of Systems Const Denies daytime sleepiness, Denies excessive sweating, Reports fatigue, Denies fever(s), Denies lethargy, Reports malaise, Denies night sweats, Denies snoring and Denies weight loss Eyes Denies blurry vision and Denies itchy eyes ENT Denies nasal congestion, Denies post nasal drip, Denies sinus pain, Denies sinus pressure and Denies other ( Thrush) Card Denies chest pain, Denies pedal edema, Denies dyspnea, Reports dyspnea on exertion, Denies orthopnea and Denies paroxysmal nocturnal dyspnea Resp Denies cough, Denies hemoptysis, Denies excessive phlegm production, Denies dyspnea, Reports dyspnea on exertion, Denies snoring and Reports wheezing GI Denies abdominal pain and Denies heartburn Musc Denies myalgias, Denies arthralgias and Denies joint swelling Skin/Breast Denies rash Neuro Denies memory loss and Denies seizure-like activity Psych Denies abnormal sleep pattern, Denies anxiety and Denies memory loss Endo Denies excessive sweating, Reports fatigue and Denies heat intolerance Sherman/Lymph Denies easy bruising Aller/Immun Denies itchy eyes, Denies seasonal rhinorrhea and Reports wheezing Physical Exam Vital Signs: Last Vital Signs Pulse 69 03/06/24 11:02 BP 90/58 L 03/06/24 11:02 Pulse Ox 98 03/06/24 11:02 Oxygen Delivery Method Room Air 03/06/24 11:02 BMI result Body Mass Index 19.2 Const General: no acute distress and alert Nutritional Appearance: not obese Orientation/consciousness: Other orientation findings ( oriented) HEENT Head: Yes atraumatic Eyes General: appearance normal, both eyes and all related structures Sclerae: sclerae normal EOM: EOMs intact bilaterally Neck Neck: Yes supple Lymphatic: no lymphadenopathy noted Resp Effort & Inspection: normal respiratory effort and no use of accessory muscles Auscultation: wheezes expiratory wheezes ( Mild bilateral) Cardio Rate: regular rate Rhythm: regular rhythm Heart sounds: no gallops, no murmurs and no rubs Skin General skin exam: other ( warm) Extrem General: No clubbing, No cyanosis and No edema Assessment & Plan Assessment & Plan (1) Asthma: Code(s): J45.909 - Unspecified asthma, uncomplicated Category: Medical Plan: baseline controlled on generic Wixela and albuterol MDI / nebs. Now with an acute exacerbation, will treat with a course of dexamethasone. (2) Environmental allergies: Code(s): Z91.09 - Other allergy status, other than to drugs and biological substances Category: Medical Plan: Now with seasonal exacerbation, continue on Zyrtec and Singulair. Coding Level of Care Code Est Pt Level 4 (62163) Diagnoses Asthma J45.909 Environmental allergies Z91.09
[2024-03-06 11:02] VITALS: BP 90/58; PULSE 69; O2SAT 98; BMI 19.2
== END 2024-03-06 11:22 | disposition home or self-care (01) ==
PROVIDERS: PCP Nurse Practitioner Family; Visit Provider Internal Medicine Pulmonary Disease
DX: J45.909 Unspecified asthma, uncomplicated (principal); Z91.09 Other allergy status, other than to drugs and biological substances
CPT/HCPCS: 99214

== ENCOUNTER → 2024-03-06 10:38 | Outpatient (BNVA) | payer OTHER, SELFPAY | PROVIDERS: PCP Nurse Practitioner Family; Visit Provider Internal Medicine Pulmonary Disease | DX: J45.909 Unspecified asthma, uncomplicated (principal); Z91.09 Other allergy status, other than to drugs and biological substances | CPT/HCPCS: 99212 ==

== ENCOUNTER 2024-03-08 15:34 | Outpatient (REF) | payer OTHER, SELFPAY | END 2024-03-08 15:35 | disposition home or self-care (01) | LOC: HO.MRI 15:34 | PROVIDERS: PCP Nurse Practitioner Family; Visit Provider Nurse Practitioner Family | DX: Z13.89 Encounter for screening for other disorder (principal) ==

== ENCOUNTER 2024-03-11 13:22 | Outpatient (AMB) | payer OTHER, SELFPAY ==
[2024-03-11 13:31] VITALS: BP 139/82; PULSE 69; BMI 19.2
--- NOTE | 2024-03-11 13:31 | MHC.OFFVIS ---
Vital Signs 03/11/24 13:31 Height 5 ft 6 in Weight 119 lb 0.794 oz BMI 19.2 BP 139/82 Blood Pressure Location Rt brachial Position Sitting Pulse 69 Intake Visit Reasons: Colonoscopy screening Intake Note: New patient in office today for colonoscopy screening. CC: Per patient last colonoscopy was with Dr. Lewis but she does not remember when. Patient denies having any GI symptoms or concerns today. Therapist'S Assistant Required: No Accompanied by: Self / Same As Patient Allergies Penicillins [PENICILLINS] Allergy (Intermediate, Verified 03/11/24 13:40) HIVES carbamazepine [From Tegretol] Allergy (Mild, Verified 03/11/24 13:40) HIVES diflunisal [From Dolobid] Allergy (Mild, Verified 03/11/24 13:40) HIVES erythromycin base [From Edwin-Tab] Allergy (Mild, Verified 03/11/24 13:40) HIVES phenytoin [From Dilantin] Allergy (Mild, Verified 03/11/24 13:40) RASH,HIVES piroxicam [From Feldene] Allergy (Mild, Verified 03/11/24 13:40) HIVES sulfamethoxazole [From Bactrim] Allergy (Mild, Verified 03/11/24 13:40) HIVES trimethoprim [From Bactrim] Allergy (Mild, Verified 03/11/24 13:40) HIVES valproic acid [From Depakene] Allergy (Mild, Verified 03/11/24 13:40) HIVES Depakene Allergy (Unknown, Verified 03/11/24 13:40) Rash hydrochlorothiazide [HYDROCHLOROTHIAZIDE] Allergy (Unknown, Verified 03/11/24 13:40) rash lisinopril [LISINOPRIL] Allergy (Unknown, Verified 03/11/24 13:40) rash codeine [Codeine] Adverse Reaction (Intermediate, Verified 03/11/24 13:40) NAUSEA & VOMITING rash ENVIRONMENTAL Allergy (Intermediate, Uncoded 01/17/24 13:48) ASTHMA,LOSES VOICE TAPE,PLASTIC Allergy (Intermediate, Uncoded 01/17/24 13:48) RASH surgical tape Allergy (Unknown, Uncoded 01/17/24 13:48) unknown HPI HPI Colonoscopy screening: Details: 69-year-old female here for preprocedural meeting to discuss a screening colonoscopy. She is referred by Glogowski, Case PMX Asthma Hypertension High cholesterol Conversion disorder/depression Gait ataxia Hard of hearing Hypothyroid Shoulder pain Osteoporosis Chronic kidney disease Anxiety * SURGICAL HISTORY Hysterectomy Thyroid lobectomy Bilateral knee surgery Ankle surgery-right deviated septum repair * ALLERGIES Penicillin Carbamazepine Erythromycin Dilantin Piroxicam Sulfa Valproic acid Hydrochlorothiazide Lisinopril Codeine Surgical tape Diflunisal * [facility] Laboratory Tests 01/16/24 16:29 WBC 7.6 Hgb 13.4 Hct 41.9 Plt Count 291 Estimated GFR > 60 Total Bilirubin 0.3 AST 34 H ALT 31 Alkaline Phosphatase 91 TODAY'S VISIT She had a TA in the past with Dr. Price. No bowel or upper GI problems. She has had hypotension and severe N/V with general anesthesia. Her asthma is well controlled and she denies any cardiac problems No ID problems, She had a TA in the past with Dr. Price. 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 Headache Myalgia Dermatitis Acute effusion of right ear Otitis externa of both ears New onset headache Dizziness Pain of both earlobes Physical exam SOB (shortness of breath) Concussion with loss of consciousness Elevated liver enzymes Encounter for routine adult physical exam with abnormal findings Screening for colon cancer Ingrown toenail Breast tenderness Liver lesion Hyperlipemia Osteoporosis CKD (chronic kidney disease) Hypothyroid Seizures Asthma Depression HTN (hypertension) Muscle weakness Hypothyroid Conversion disorder with attacks or seizures, acute episode, with psychological stressor Surgical History H/O colonoscopy History of right knee surgery History of lobectomy of thyroid History of arthroscopy of right knee History of ankle surgery History of arthroscopy of left knee History of hysterectomy Family History Father CVD (cardiovascular disease) Stomach ulcer Cardiac arrest H/O heart bypass surgery Mother History of heart attack CHF (congestive heart failure) Lung cancer Diabetes mellitus High cholesterol HTN (hypertension) Hypothyroidism Sister Lung cancer Substance use disorder Brother Colitis Sister No problems noted. Sister Obstetric pulmonary blood clot embolism, antepartum Paternal Aunt Mental health disorder Substance use disorder Maternal Grandmother Mental health disorder Family/Other Substance use disorder Social History Household Members: Family Household Members Other:: brother, 2 cats Housing: House Alcohol intake: never Patient Tobacco Use Status: Never used Tobacco e-Cigarette/Vaping Use: Never Used Second Hand Smoke Exposure: No Current occupational status: disabled Cognitive needs: No Hearing needs: No Vision needs: No Review of Systems Const Denies fatigue, Denies fever(s), Denies night sweats, Denies poor appetite and Denies weight loss ENT Reports Normal hearing present, Denies dysphagia, Denies odynophagia, Denies throat swelling and Denies tongue swelling Card Reports no additional complaints Resp Reports no additional complaints GI Details: Denies abdominal pain, Denies melena, Denies bloating, Denies hematochezia, Denies constipation, Denies GI cramping, Denies dysphagia, Denies excessive flatus, Denies early satiety, Denies heartburn, Denies diarrhea, Denies nausea, Denies odynophagia, Denies vomiting and Denies hematemesis Skin/Breast Denies pruritus, Denies lesions, Denies rash and Denies jaundice Neuro Reports Normal hearing present and Denies Abnormal speech present Endo Denies fatigue Aller/Immun Denies throat swelling and Denies tongue swelling Physical Exam Vital Signs: Last Vital Signs Pulse 69 03/11/24 13:31 BP 139/82 03/11/24 13:31 BMI result Body Mass Index 19.2 Const General: cooperative, no acute distress, well developed and well groomed Nutritional Appearance: well nourished Orientation/consciousness: oriented to person, oriented to place and oriented to time Limitations: No language barrier, ambulation with walker and other limitations HEENT Head: Yes normocephalic and Yes atraumatic Eyes General: appearance normal, both eyes and all related structures Pupils: Equal, round and reactive pupils present Neck Neck: Yes normal visual inspection and Yes no lymphadenopathy Thyroid: Thyroid normal Resp Effort & Inspection: normal respiratory effort and able to speak in complete sentences Auscultation: clear to auscultation bilaterally Cardio Rate: regular rate Rhythm: regular rhythm Heart sounds: Normal, physiologic split S2 sound present Peripheral pulses: radial pulses present and posterior tibial pulses present GI Inspection: No distended and No Abdominal panniculus present Palpation (GI): Soft to palpation, nontender, no guarding, not rigid and No hepatosplenomegaly present Percussion: Yes normal to percussion Auscultation: normal bowel sounds Rectal Exam - Female: deferred Abdomen image: 1. surgical scar Skin General skin exam: no rashes or lesions noted, turgor normal, skin not dry, no jaundice, No spider nevi and no striae Rashes: no rashes Nails: normal Neuro General: oriented to person, oriented to place and oriented to time Cranial nerves: Yes Equal, round and reactive pupils present and Yes Normal hearing present Speech: No Abnormal speech present Extrem General: Yes normal to inspection, No clubbing, No cyanosis and No edema Psych Appearance: grossly normal and well kempt Mental Status: mental status grossly normal Speech and movement: Normal speech and movement present Affect: Anxious affect present Attitude: cooperative Thought process: Circumstantial thought process present and not confabulating Thought content: Normal thought content present Insight: Limited insight present (Psych) Judgement: Limited judgement present (Psych) Assessment & Plan Assessment & Plan (1) Tubular adenoma of colon: Comment: 2018 scope - Albert=1TA Code(s): D12.6 - Benign neoplasm of colon, unspecified Category: Medical (2) Pre-op examination: Code(s): Z01.818 - Encounter for other preprocedural examination Category: Medical Plan She had a TA in the past with Dr. Price. No bowel or upper GI problems. She has had hypotension and severe N/V with general anesthesia. Her asthma is well controlled and she denies any cardiac problems No ID problems, She had a TA in the past with Dr. Price. Orders: Orders Colonoscopy - GI Use Only Today D12.6 - Benign neoplasm of colon, unspecified Medications: New polyethylene glycol 3350 (Miralax) 238 grams PO ONCE 238 grams 0RF colonoscopy prep 1 day bisacodyl (Dulcolax (bisacodyl)) 10 mg (2 x 5 mg) PO BEDTIME 4 tabs 0RF 2 days Coding Level of Care Code New Pt Level 3 (78138) Diagnoses Tubular adenoma of colon D12.6 Pre-op examination Z01.818
== END 2024-03-11 14:20 | disposition home or self-care (01) ==
PROVIDERS: PCP Nurse Practitioner Family; Visit Provider Nurse Practitioner
DX: D12.6 Benign neoplasm of colon, unspecified (principal); Z01.818 Encounter for other preprocedural examination
CPT/HCPCS: 99203

== ENCOUNTER → 2024-03-11 14:46 | Outpatient (BNV) | payer OTHER, SELFPAY | PROVIDERS: PCP Nurse Practitioner Family; Visit Provider Radiology Diagnostic Radiology | DX: K76.9 Liver disease, unspecified (principal) | CPT/HCPCS: 74183 ==

== ENCOUNTER 2024-03-11 14:48 | Outpatient (REF) | payer OTHER, SELFPAY ==
--- NOTE | ~2024-03-11 | MR_ITS ---
EXAMINATION: MR ABDOMEN WITHOUT AND WITH CONTRAST CLINICAL INFORMATION: Liver disease, unspecified. History of thyroid cancer in 2003. COMPARISON: Correlated to CT dated March 06, 2019. TECHNIQUE: MR abdomen was performed without and with use of 5.0 mL intravenous Gadavist gadolinium contrast. Postcontrast images are performed in multiphase dynamic sequences. Imaging was performed in 3 planes. No reported immediate complications FINDINGS: Submitted for interpretation on May 15, 2024. LIVER, GALLBLADDER, AND BILIARY TREE: Liver measures 13 cm. There are multifocal, different sizes, less than 1 cm, well-defined, round, peripheral, discontinuous centripetal enhancement lesions throughout its parenchyma. There is a 1.3 cm, lobulated, septated, well-defined, nonrestricted effusion, nonenhancing fluid signal characteristic lesions in right hepatic lobe. The portal vein, hepatic veins and intrahepatic portion of the IVC are patent. Gallbladder is fluid-filled without pericholecystic fluid collection or gallbladder wall thickening. No intrahepatic or extrahepatic biliary ductal dilatation. The common bile duct measures 4 mm. PANCREAS: No focal pancreatic mass. No peripancreatic fluid collection. No main pancreatic ductal dilatation. SPLEEN: 7 cm. No focal mass. ADRENAL GLANDS: No nodular lesions. KIDNEYS AND URETERS: Normal enhancement throughout the renal parenchyma without focal mass. Multifocal, different sizes nonenhancing fluid signal characteristic lesions bilaterally, the largest measures no more than 1 cm. No hydronephrosis. There is prominence of the pelvicalyceal systems bilaterally. GASTROINTESTINAL TRACT: Abundant stool. Numerous diverticula throughout the large intestine. No intestinal obstruction pattern. No ascites. ABDOMINAL WALL: No gross hernia. LYMPH NODES: No gross lymphadenopathy, mesenteric or retroperitoneal. VASCULAR: No aneurysm or dissection, abdominal aorta. OSSEOUS STRUCTURES: Grade 1 anterolisthesis L4-5 on a degenerative basis resulting in bilateral neuroforamina narrowing/stenosis. MR/MR abdomen wo/w con IMPRESSION: Multiple small hemangiomata, hepatic. 1.3 cm septated cyst, and less than 1 cm cyst, hepatic. Diverticular disease, colonic Grade 1 anterolisthesis L4-5. Electronically signed by: Will Greenberg MD 05/15/2024 11:20 AM [facility] [place]
[2024-03-11] MEDS: gadobutroL 7.5 ML VIAL IVPUSH (16:04)
== END 2024-03-11 14:49 | disposition home or self-care (01) ==
LOC: HO.MRI 14:48
PROVIDERS: PCP Nurse Practitioner Family; Visit Provider Nurse Practitioner Family
DX: Z01.818 Encounter for other preprocedural examination (principal); K76.9 Liver disease, unspecified; D12.6 Benign neoplasm of colon, unspecified
CPT/HCPCS: 74183; 99202; A9585

== ENCOUNTER 2024-03-17 15:09 | Outpatient (AMB) | payer OTHER, SELFPAY ==
[2024-03-17 15:11] VITALS: BP 112/64; PULSE 77; O2SAT 97; BMI 19.8
--- NOTE | 2024-03-17 15:11 | A.OFFPC_ITS ---
Vital Signs 03/17/24 15:11 Height 5 ft 6 in Weight 122 lb 8 oz BMI 19.8 BP 112/64 Blood Pressure Location Lt brachial Position Sitting Pulse 77 Pulse Source Pulse Oximeter Pulse Oximetry (%) 97 Oxygen Delivery Method Room Air Intake Visit Reasons: 4 month follow up Intake Note: pt is here for 4 month follow up [employer] Required: No Accompanied by: Self / Same As Patient Allergies Penicillins [PENICILLINS] Allergy (Intermediate, Verified 03/17/24 15:12) HIVES carbamazepine [From Tegretol] Allergy (Mild, Verified 03/17/24 15:12) HIVES diflunisal [From Dolobid] Allergy (Mild, Verified 03/17/24 15:12) HIVES erythromycin base [From Edwin-Tab] Allergy (Mild, Verified 03/17/24 15:12) HIVES phenytoin [From Dilantin] Allergy (Mild, Verified 03/17/24 15:12) RASH,HIVES piroxicam [From Feldene] Allergy (Mild, Verified 03/17/24 15:12) HIVES sulfamethoxazole [From Bactrim] Allergy (Mild, Verified 03/17/24 15:12) HIVES trimethoprim [From Bactrim] Allergy (Mild, Verified 03/17/24 15:12) HIVES valproic acid [From Depakene] Allergy (Mild, Verified 03/17/24 15:12) HIVES Depakene Allergy (Unknown, Verified 03/17/24 15:12) Rash hydrochlorothiazide [HYDROCHLOROTHIAZIDE] Allergy (Unknown, Verified 03/17/24 15:12) rash lisinopril [LISINOPRIL] Allergy (Unknown, Verified 03/17/24 15:12) rash codeine [Codeine] Adverse Reaction (Intermediate, Verified 03/17/24 15:12) NAUSEA & VOMITING rash ENVIRONMENTAL Allergy (Intermediate, Uncoded 01/17/24 13:48) ASTHMA,LOSES VOICE TAPE,PLASTIC Allergy (Intermediate, Uncoded 01/17/24 13:48) RASH surgical tape Allergy (Unknown, Uncoded 01/17/24 13:48) unknown Tobacco use date assessed: 07/16/23 Fall risk assessment: No Falls in past year Last assessed Fall Risk: 03/17/24 Dental Screening Dental Screen Date: 07/16/23 HPI 4 month follow up HPI Details Conversion disorder: Pt is following up with neurology for this. She is also seeing a therapist. Pt is doing well overall. Denies fever, chills, and dizziness. stable from my standpoint. 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 Headache Myalgia Dermatitis Acute effusion of right ear Otitis externa of both ears New onset headache Dizziness Pain of both earlobes Physical exam SOB (shortness of breath) Concussion with loss of consciousness Elevated liver enzymes Encounter for routine adult physical exam with abnormal findings Screening for colon cancer Ingrown toenail Breast tenderness Liver lesion Hyperlipemia Osteoporosis CKD (chronic kidney disease) Hypothyroid Seizures Asthma Depression HTN (hypertension) Muscle weakness Hypothyroid Conversion disorder with attacks or seizures, acute episode, with psychological stressor Surgical History H/O colonoscopy History of right knee surgery History of lobectomy of thyroid History of arthroscopy of right knee History of ankle surgery History of arthroscopy of left knee History of hysterectomy Family History Father CVD (cardiovascular disease) Stomach ulcer Cardiac arrest H/O heart bypass surgery Mother History of heart attack CHF (congestive heart failure) Lung cancer Diabetes mellitus High cholesterol HTN (hypertension) Hypothyroidism Sister Lung cancer Substance use disorder Brother Colitis Sister No problems noted. Sister Obstetric pulmonary blood clot embolism, antepartum Paternal Aunt Mental health disorder Substance use disorder Maternal Grandmother Mental health disorder Family/Other Substance use disorder Social History Household Members: Family Household Members Other:: brother, 2 cats Housing: House Alcohol intake: never Patient Tobacco Use Status: Never used Tobacco e-Cigarette/Vaping Use: Never Used Second Hand Smoke Exposure: No Current occupational status: disabled Cognitive needs: No Hearing needs: No Vision needs: No Questionnaire Thrive Questionnaire Date Thrive assessed: 01/10/24 I am a: Patient What is your living situation today?: I have a steady place to live Within the past 12 months, did the food you bought not last and you didn't have the money to get more?: Never true Within the past 12 months, did you worry whether your food would run out before you got money to buy more?: Never true Do you have trouble paying for medicines?: No Do you have trouble getting transportation to medical appointments?: I choose not to answer this question Do you have trouble paying your heating and electricity bill?: No Do you have trouble taking care of your child, family member or friend?: No Do you have trouble with day-to-day activities such as bathing, preparing meals, shopping, managing finances, etc.?: No Are you currently unemployed and looking for a job?: I choose not to answer this question Are you interested in more education?: No Please select the resources that you would like help with: None Currently or been in a relationship where the following occur: No concerns reported THRIVE Score: 0 KATHRINE-7 AMB Questionnaire KATHRINE-7 Date KATHRINE - 7 assessed: 01/17/24 Feeling nervous, anxious, or on edge: 2 = More than half the days Source: Developed by Drs. Mirza Corona, Jelena Walton, Arnoldo Gonzalez and colleagues, with an educational liu from [employer]. Review of Systems Const Reports as per HPI Physical exam (Primary Care) Vital Signs: Last Vital Signs Pulse 77 03/17/24 15:11 BP 112/64 03/17/24 15:11 Pulse Ox 97 03/17/24 15:11 Oxygen Delivery Method Room Air 03/17/24 15:11 BMI result Body Mass Index 19.8 Tobacco/Smoking Status: Tobacco use Status Tobacco use date assessed 07/16/23 03/17/24 15:12 Patient Tobacco Use Status Never used Tobacco 03/17/24 15:12 e-Cigarette/Vaping Use Never Used 03/17/24 15:12 Thrive Assessment: Date of Thrive Assessment Date Thrive assessed 01/10/24 03/17/24 15:12 Currently or been in a relationship where the following occur: No concerns reported Const General: cooperative Orientation/consciousness: patient oriented x3 Limitations: ambulation with walker Resp Effort & Inspection: normal respiratory effort Auscultation: clear to auscultation bilaterally Cardio Rate: regular rate Rhythm: regular rhythm Heart sounds: S1 normal heart sound present and S2 normal heart sound present Neuro Other: hyperactive reflexes especially to knees, stable gait (currently) General: patient oriented x3 and CN's II-XI intact bilaterally Extrem Right lower extremity: no edema Left lower extremity: no edema Psych Appearance: grossly normal Mental Status: mental status grossly normal Speech and movement: Normal speech and movement present Affect: normal affect Attitude: cooperative Thought process: Normal thought process present Thought content: Normal thought content present Insight: Good insight present (Psych) Judgement: Good judgement present (Psych) Coding Level of Care Code Est Pt Level 3 (93996) Diagnoses Conversion disorder F44.9 Assessment & Plan Assessment & Plan (1) Conversion disorder: Code(s): F44.9 - Dissociative and conversion disorder, unspecified Category: Medical Plan: following up with neurology. Cont with therapist Plan The patient agreed to the use of a medical staff physician for this encounter. Scribed for DANIELLA Rosen by Lulu Avila medical staff physician, on 03/17/2024 at 15:30 EST.
== END 2024-03-17 17:11 | disposition home or self-care (01) ==
PROVIDERS: PCP Nurse Practitioner Family; Visit Provider Nurse Practitioner Family
DX: F44.9 Dissociative and conversion disorder, unspecified (principal)

== ENCOUNTER → 2024-03-17 15:09 | Outpatient (BNVA) | payer OTHER, SELFPAY | PROVIDERS: PCP Nurse Practitioner Family; Visit Provider Nurse Practitioner Family | DX: F44.9 Dissociative and conversion disorder, unspecified (principal) | CPT/HCPCS: 99212 ==

== ENCOUNTER 2024-05-02 08:14 | Outpatient (REF) | payer OTHER, SELFPAY ==
--- NOTE | ~2024-05-02 | XR_ITS ---
EXAMINATION: XR CHEST CLINICAL INFORMATION: Cough. COMPARISON: Most recent chest radiograph dated 01/16/2024. TECHNIQUE: 2 views of the chest were obtained. FINDINGS: Focal tenting of the right hemidiaphragm, unchanged. No new airspace consolidation. No pleural effusion or pneumothorax. Stable cardiomediastinal silhouette. XR/XR chest 2V IMPRESSION: No acute cardiopulmonary findings. Electronically signed by: Ramesh Almaguer MD 05/02/2024 12:00 PM [facility]
== END 2024-05-02 08:15 | disposition home or self-care (01) ==
LOC: HO.HMGCX 08:14
PROVIDERS: PCP Nurse Practitioner Family; Visit Provider Physician Assistant
DX: R05.9 Cough, unspecified (principal); J01.10 Acute frontal sinusitis, unspecified
CPT/HCPCS: 71046; 99212

== ENCOUNTER 2024-05-02 08:14 | Outpatient (AMB) | payer OTHER, SELFPAY ==
--- NOTE | 2024-05-02 08:45 | AM.OFFWIN_ITS ---
Intake Vital Signs 05/02/24 08:47 Weight 120 lb BP 120/82 Blood Pressure Location Lt brachial Position Sitting Pulse 81 Pulse Source Pulse Oximeter Temp 97.7 F Temp Source Oral Pulse Oximetry (%) 98 Oxygen Delivery Method Room Air Intake Visit Reasons: EP-Headaches, cough, nasal congestion Intake Note: Patient here for headache, congestion,cough on and off which has been going on for about 2 months. Patient Tobacco Use Status: Never used Tobacco Allergies Penicillins [PENICILLINS] Allergy (Intermediate, Verified 05/02/24 08:48) HIVES carbamazepine [From Tegretol] Allergy (Mild, Verified 05/02/24 08:48) HIVES diflunisal [From Dolobid] Allergy (Mild, Verified 05/02/24 08:48) HIVES erythromycin base [From Edwin-Tab] Allergy (Mild, Verified 05/02/24 08:48) HIVES phenytoin [From Dilantin] Allergy (Mild, Verified 05/02/24 08:48) RASH,HIVES piroxicam [From Feldene] Allergy (Mild, Verified 05/02/24 08:48) HIVES sulfamethoxazole [From Bactrim] Allergy (Mild, Verified 05/02/24 08:48) HIVES trimethoprim [From Bactrim] Allergy (Mild, Verified 05/02/24 08:48) HIVES valproic acid [From Depakene] Allergy (Mild, Verified 05/02/24 08:48) HIVES Depakene Allergy (Unknown, Verified 05/02/24 08:48) Rash hydrochlorothiazide [HYDROCHLOROTHIAZIDE] Allergy (Unknown, Verified 05/02/24 08:48) rash lisinopril [LISINOPRIL] Allergy (Unknown, Verified 05/02/24 08:48) rash codeine [Codeine] Adverse Reaction (Intermediate, Verified 05/02/24 08:48) NAUSEA & VOMITING rash ENVIRONMENTAL Allergy (Intermediate, Uncoded 05/02/24 08:48) ASTHMA,LOSES VOICE TAPE,PLASTIC Allergy (Intermediate, Uncoded 05/02/24 08:48) RASH surgical tape Allergy (Unknown, Uncoded 05/02/24 08:48) unknown Do you need a note to return to daycare/school/sports/work: No HPI HPI Comments History of Present Illness Details History of Present Illness The patient is a 69-year-old female presenting with sinusitis accompanied by postnasal drip, intermittent headaches, congestion, and dizziness that has persisted for two months. The patient reports a sensation of pressure in the sinus area, exacerbated by bending down, but denies ear pain despite feeling itchy and having fluid sensations in the ears. No fever has been recorded, with a temperature of 97.7?F taken recently. Additional symptoms include shortness of breath, which the patient attributes to her history of asthma. The patient reported increased usage of her rescue inhaler, albuterol, over the past month. The patient recounts two falls occurring within the last week while tending to cats, leading to soreness on both sides of her back and a significant bruise on the right side. She describes feeling drained and lacking energy over the two- month period. Previous interventions include [id number] decongestants and a generic version of Flonase, with minimal relief. The patient has not actively consulted any healthcare provider recently, but recalls advice to use deconges tants. Known allergies include penicillin and sulfamethoxazole-trimethoprim (Bactrim). The patient also reports a history of COVID-19 infections and a past RSV infection while in a nursing facility. Physical Exam General: Cooperative, healthy appearing, comfortable and no acute distress Orientation/consciousness: Patient oriented x3 Limitations: No limitations Head: Normal to inspection Ears: Hearing grossly normal bilaterally, external ears normal, possible infection behind the left ear Nose: Normal external nose present, Normal nares present and No nasal discharge present Face and sinus: Normal facial exam, Sinuses tender on palpation Mouth: Normal oral and palatal mucosa present and moist mucous membranes Throat: Yes tonsils normal, Yes uvula midline. Posterior oropharynx erythema Eyes: Appearance normal, both eyes and all related structures Neck: Normal visual inspection Respirtory: Clear to auscultation bilaterally. Normal respiratory effort, able to speak in complete sentences, Actively coughing, no respiratory distress, not tachypneic, no tripod positioning and no use of accessory muscles Cardiovascular: Regular rate and rhythm. Normal S1 and S2 Skin: No rashes or lesions noted. Bruising and scrape noted on the back Neuro: Patient oriented x3 Extremities: Normal to inspection and Yes no clubbing, cyanosis or edema Plan For sinusitis, I have prescribed doxycycline as the patient reports allergies to penicillins and Bactrim. The patient is advised to refrain from dairy products to minimize gastrointestinal upset and avoid sun exposure while on medication. Treatment will last for seven days at a dose of twice daily. For possible acute otitis media and potential pneumonia, I will consider initiating further antibiotic treatment if warranted by a chest X-ray, which I have recommended immediately to rule out pneumonia. Additionally, for asthma, the patient should continue using her current inhaler regimen, with further use of albuterol as needed. For back pain resulting from recent falls, I advised rest and monitoring, as bruising is expected to resolve; however, follow-up care should be sought if no improvement is noted. I have advised delaying influenza and RSV vaccinations until the patient recovers from the current illness. 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 Headache Myalgia Dermatitis Acute effusion of right ear Otitis externa of both ears New onset headache Dizziness Pain of both earlobes Physical exam SOB (shortness of breath) Concussion with loss of consciousness Elevated liver enzymes Encounter for routine adult physical exam with abnormal findings Screening for colon cancer Ingrown toenail Breast tenderness Liver lesion Hyperlipemia Osteoporosis CKD (chronic kidney disease) Hypothyroid Seizures Asthma Depression HTN (hypertension) Muscle weakness Hypothyroid Conversion disorder with attacks or seizures, acute episode, with psychological stressor Surgical History H/O colonoscopy History of right knee surgery History of lobectomy of thyroid History of arthroscopy of right knee History of ankle surgery History of arthroscopy of left knee History of hysterectomy Family History Father CVD (cardiovascular disease) Stomach ulcer Cardiac arrest H/O heart bypass surgery Mother History of heart attack CHF (congestive heart failure) Lung cancer Diabetes mellitus High cholesterol HTN (hypertension) Hypothyroidism Sister Lung cancer Substance use disorder Brother Colitis Sister No problems noted. Sister Obstetric pulmonary blood clot embolism, antepartum Paternal Aunt Mental health disorder Substance use disorder Maternal Grandmother Mental health disorder Family/Other Substance use disorder Social History Household Members: Family Household Members Other:: brother, 2 cats Housing: House Alcohol intake: never Patient Tobacco Use Status: Never used Tobacco e-Cigarette/Vaping Use: Never Used Second Hand Smoke Exposure: No Current occupational status: disabled Cognitive needs: No Hearing needs: No Vision needs: No Physical Exam Vital Signs: Last Vital Signs Temp 97.7 F 05/02/24 08:47 Pulse 81 05/02/24 08:47 BP 120/82 05/02/24 08:47 Pulse Ox 98 05/02/24 08:47 Oxygen Delivery Method Room Air 05/02/24 08:47 Assessment & Plan Assessment & Plan (1) Sinusitis, acute: Code(s): J01.90 - Acute sinusitis, unspecified Qualifiers: Sinusitis location: frontal Recurrence: non-recurrent Qualified Code(s): J01.10 - Acute frontal sinusitis, unspecified Plan: see above Orders: Orders XR chest 2V Today R05.9 - Cough, unspecified Medications: New doxycycline hyclate 100 mg PO BID 14 tabs 0RF Coding Level of Care Code Est Pt Level 4 (53250) Diagnoses Acute non-recurrent frontal sinusitis J01.10 Sinusitis location: frontal Recurrence: non-recurrent
[2024-05-02 08:47] VITALS: BP 120/82; PULSE 81; TEMP 36.5; O2SAT 98
== END 2024-05-02 10:06 | disposition home or self-care (01) ==
PROVIDERS: PCP Nurse Practitioner Family; Visit Provider Physician Assistant
DX: J01.10 Acute frontal sinusitis, unspecified (principal)

== ENCOUNTER 2024-05-17 09:55 | Outpatient (AMB) | payer OTHER, SELFPAY ==
--- NOTE | 2024-05-17 11:39 | AM.OFFWIN_ITS ---
Intake Vital Signs 05/17/24 11:40 BMI Reason not done Patient refused/unable BP 104/70 Blood Pressure Location Rt brachial Position Sitting Pulse 72 Pulse Source Pulse Oximeter Temp 97.9 F Temp Source Oral Pulse Oximetry (%) 98 Oxygen Delivery Method Room Air Intake Visit Reasons: EP-Headaches, cough, nasal congestion Intake Note: Pt is here today c/o nasal congestion, cough and headaches Patient Tobacco Use Status: Never used Tobacco Allergies Penicillins [PENICILLINS] Allergy (Intermediate, Verified 05/17/24 11:46) HIVES carbamazepine [From Tegretol] Allergy (Mild, Verified 05/17/24 11:46) HIVES diflunisal [From Dolobid] Allergy (Mild, Verified 05/17/24 11:46) HIVES erythromycin base [From Edwin-Tab] Allergy (Mild, Verified 05/17/24 11:46) HIVES phenytoin [From Dilantin] Allergy (Mild, Verified 05/17/24 11:46) RASH,HIVES piroxicam [From Feldene] Allergy (Mild, Verified 05/17/24 11:46) HIVES sulfamethoxazole [From Bactrim] Allergy (Mild, Verified 05/17/24 11:46) HIVES trimethoprim [From Bactrim] Allergy (Mild, Verified 05/17/24 11:46) HIVES valproic acid [From Depakene] Allergy (Mild, Verified 05/17/24 11:46) HIVES Depakene Allergy (Unknown, Verified 05/17/24 11:46) Rash hydrochlorothiazide [HYDROCHLOROTHIAZIDE] Allergy (Unknown, Verified 05/17/24 11:46) rash lisinopril [LISINOPRIL] Allergy (Unknown, Verified 05/17/24 11:46) rash codeine [Codeine] Adverse Reaction (Intermediate, Verified 05/17/24 11:46) NAUSEA & VOMITING rash doxycycline Adverse Reaction (Verified 05/17/24 11:46) Stomach Upset ENVIRONMENTAL Allergy (Intermediate, Uncoded 05/17/24 11:46) ASTHMA,LOSES VOICE TAPE,PLASTIC Allergy (Intermediate, Uncoded 05/17/24 11:46) RASH surgical tape Allergy (Unknown, Uncoded 05/17/24 11:46) unknown HPI EP-Headaches, cough, nasal congestion HPI Details Complaint of nasal pain and sinus pain with headaches. Patient has longstanding history of allergies. Patient has multiple cats. She was recently treated for a sinus infection but did not tolerate doxycycline that was prescribed. Currently does not seem to have any remaining sinus infection. 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 Headache Myalgia Dermatitis Acute effusion of right ear Otitis externa of both ears New onset headache Dizziness Pain of both earlobes Physical exam SOB (shortness of breath) Concussion with loss of consciousness Elevated liver enzymes Encounter for routine adult physical exam with abnormal findings Screening for colon cancer Ingrown toenail Breast tenderness Liver lesion Hyperlipemia Osteoporosis CKD (chronic kidney disease) Hypothyroid Seizures Asthma Depression HTN (hypertension) Muscle weakness Hypothyroid Conversion disorder with attacks or seizures, acute episode, with psychological stressor Surgical History H/O colonoscopy History of right knee surgery History of lobectomy of thyroid History of arthroscopy of right knee History of ankle surgery History of arthroscopy of left knee History of hysterectomy Family History Father CVD (cardiovascular disease) Stomach ulcer Cardiac arrest H/O heart bypass surgery Mother History of heart attack CHF (congestive heart failure) Lung cancer Diabetes mellitus High cholesterol HTN (hypertension) Hypothyroidism Sister Lung cancer Substance use disorder Brother Colitis Sister No problems noted. Sister Obstetric pulmonary blood clot embolism, antepartum Paternal Aunt Mental health disorder Substance use disorder Maternal Grandmother Mental health disorder Family/Other Substance use disorder Social History Household Members: Family Household Members Other:: brother, 2 cats Housing: House Alcohol intake: never Patient Tobacco Use Status: Never used Tobacco e-Cigarette/Vaping Use: Never Used Second Hand Smoke Exposure: No Current occupational status: disabled Cognitive needs: No Hearing needs: No Vision needs: No Review of Systems Const Denies chills, Denies fatigue, Denies fever(s), Reports headache(s) and Denies weakness ENT Details: See HPI Denies dizziness and Reports headache(s) Card Denies dyspnea Resp Denies cough, Denies dyspnea, Denies wheezing and Denies other ( shortness of breath) Musc Denies numbness and Denies tingling Neuro Denies dizziness, Reports headache(s), Denies numbness, Denies tingling, Denies paresthesias and Denies weakness Psych Denies anxiety and Denies depression Endo Denies fatigue Aller/Immun Denies wheezing Physical Exam Vital Signs: Last Vital Signs Temp 97.9 F 05/17/24 11:40 Pulse 72 05/17/24 11:40 BP 104/70 05/17/24 11:40 Pulse Ox 98 05/17/24 11:40 Oxygen Delivery Method Room Air 05/17/24 11:40 Const General: no acute distress and well developed Nutritional Appearance: well nourished Orientation/consciousness: patient oriented x3 HEENT Other: Nasal mucosal irritation/erythema. No blood and no pus. Minimal congestion Head: Yes normocephalic and Yes atraumatic Eyes General: appearance normal, both eyes and all related structures Pupils: Equal, round and reactive pupils present EOM: EOMs intact bilaterally Resp Effort & Inspection: normal respiratory effort Auscultation: clear to auscultation bilaterally Cardio Rate: regular rate Rhythm: regular rhythm Heart sounds: S1 normal heart sound present, S2 normal heart sound present, no gallops, no murmurs and no rubs Neuro General: patient oriented x3 and gait normal Cranial nerves: Yes Equal, round and reactive pupils present Psych Affect: normal affect Assessment & Plan Assessment & Plan (1) Allergic rhinitis: Code(s): J30.9 - Allergic rhinitis, unspecified Plan: Patient has longstanding history allergies No evidence of sinus or nasal infection today but has significant nasal mucosal irritation Appears to have allergic rhinitis and likely also irritant rhinitis from dry air. Patient had numerous explanations of barriers to care however she was interested in looking into getting a HEPA filter for her bedroom which could clear away some allergens and dander from her cats. Already using hypoallergenic bedding covers. She says she has not tried Zyrtec/cetirizine so I will send her a script for this to see if it helps I also advised humidified air. I also advised good hydration. Will send her script for cetirizine and also pseudoephedrine. Patient does not have hypertension. Call or return to office if not improving. Follow-up with your PCP Medications: New pseudoephedrine HCl ER 120 mg PO Q12H 5 days 10 tabs 0RF cetirizine (All Day Allergy (cetirizine)) 10 mg PO DAILY 30 days PRN 30 tabs 0RF allergy symptoms Coding Level of Care Code Est Pt Level 3 (78877) Diagnoses Allergic rhinitis J30.9
[2024-05-17 11:40] VITALS: BP 104/70; PULSE 72; TEMP 36.6; O2SAT 98
== END 2024-05-17 12:42 | disposition home or self-care (01) ==
PROVIDERS: PCP Nurse Practitioner Family; Visit Provider Family Medicine
DX: J30.9 Allergic rhinitis, unspecified (principal)

== ENCOUNTER → 2024-05-17 09:55 | Outpatient (BNVA) | payer OTHER, SELFPAY | PROVIDERS: PCP Nurse Practitioner Family | DX: J30.9 Allergic rhinitis, unspecified (principal) | CPT/HCPCS: 99212 ==

== ENCOUNTER 2024-06-18 10:04 | Outpatient (AMB) | payer OTHER, SELFPAY ==
--- NOTE | 2024-06-18 10:05 | MHC.OFFVIS ---
Vital Signs 06/18/24 10:10 Height 5 ft 1.06 in Weight 117 lb 11.629 oz BMI 22.2 BP 126/60 Blood Pressure Location Rt brachial Position Sitting Pulse 81 Pulse Source Pulse Oximeter Intake Visit Reasons: f/u osteoporosis Intake Note: Patient present today for Osteoporosis follow up. Senior Engineering Specialist Required: No Accompanied by: Self / Same As Patient Allergies Penicillins [PENICILLINS] Allergy (Intermediate, Verified 06/18/24 10:12) HIVES carbamazepine [From Tegretol] Allergy (Mild, Verified 06/18/24 10:12) HIVES diflunisal [From Dolobid] Allergy (Mild, Verified 06/18/24 10:12) HIVES erythromycin base [From Edwin-Tab] Allergy (Mild, Verified 06/18/24 10:12) HIVES phenytoin [From Dilantin] Allergy (Mild, Verified 06/18/24 10:12) RASH,HIVES piroxicam [From Feldene] Allergy (Mild, Verified 06/18/24 10:12) HIVES sulfamethoxazole [From Bactrim] Allergy (Mild, Verified 06/18/24 10:12) HIVES trimethoprim [From Bactrim] Allergy (Mild, Verified 06/18/24 10:12) HIVES valproic acid [From Depakene] Allergy (Mild, Verified 06/18/24 10:12) HIVES Depakene Allergy (Unknown, Verified 06/18/24 10:12) Rash hydrochlorothiazide [HYDROCHLOROTHIAZIDE] Allergy (Unknown, Verified 06/18/24 10:12) rash lisinopril [LISINOPRIL] Allergy (Unknown, Verified 06/18/24 10:12) rash codeine [Codeine] Adverse Reaction (Intermediate, Verified 06/18/24 10:12) NAUSEA & VOMITING rash doxycycline Adverse Reaction (Verified 06/18/24 10:12) Stomach Upset ENVIRONMENTAL Allergy (Intermediate, Uncoded 06/18/24 10:12) ASTHMA,LOSES VOICE TAPE,PLASTIC Allergy (Intermediate, Uncoded 06/18/24 10:12) RASH surgical tape Allergy (Unknown, Uncoded 06/18/24 10:12) unknown Medication List - Last Reconciled 06/18/24 by Mirza Reyes MD albuterol sulfate 2.5 mg (3 mL) inhalation QID PRN 90 days albuterol sulfate 90 mcg/actuation 2 puffs PO Q6H PRN aspirin (Adult Low Dose Aspirin) 81 mg PO DAILY atorvastatin 80 mg PO DAILY 90 days betamethasone dipropionate 0.05% 1 appl topical DAILY 14 days bisacodyl (Dulcolax (bisacodyl)) 10 mg (2 x 5 mg) PO BEDTIME 2 days cetirizine (All Day Allergy (cetirizine)) 10 mg PO DAILY PRN 30 days cholecalciferol (vitamin D3) 50 mcg PO DAILY 90 days clonazepam 0.5 mg PO BID PRN 60 days ezetimibe 10 mg PO DAILY fludrocortisone 0.1 mg PO DAILY 90 days fluoxetine 60 mg (3 x 20 mg) PO DAILY 90 days fluticasone propion-salmeterol 250-50 mcg/dose (Wixela Inhub) 1 ea inhalation BID 90 days fluticasone propionate 50 mcg/actuation 1 spray intranasal DAILY 90 days folic acid 0.8 mg PO DAILY galcanezumab-gnlm (Emgality Pen) 120 mg subcut ONCE 30 days levothyroxine 25 mcg PO DAILY [[employer] unit As directed] magnesium oxide 400 mg PO BEDTIME 90 days meclizine 25 mg PO DAILY PRN montelukast 10 mg PO DAILY 90 days oxymetazoline 0.05% (Afrin (oxymetazoline)) 2 sprays intranasal Q12H PRN 3 days polyethylene glycol 3350 (Miralax) 238 grams PO ONCE 1 day pseudoephedrine HCl ER 120 mg PO Q12H 5 days riboflavin (vitamin B2) 400 mg PO DAILY 90 days risedronate 35 mg PO QWEEK sumatriptan succinate take 1 tab at onset of headache; if no relief, may repeat 1 tab after at least 2 hrs; max = 2 tabs/24 hrs PO 30 days topiramate 100 mg PO BID 90 days HPI Comments Details: 69 YO Female with PMHx Sx disorder is seen in t follow-up at the request of PCP for Osteoporosis. First diagnosed in 09/10/2020 . Received treatment in the past with alendronate , from 09/2020 to 11/2020 . Could not Tolerated treatment because of muscle aches . No history of pathologic fracture or ONJ. Fx coccyx due to fall 1 yr ago Has no servings of dietary calcium per day i. Does not Takes Calcium supplement Takes 2000 IU of Vitamin D daily. Denies ever using PPI, anticoagulant, does use antiepileptic but took glucocorticoid medication for asthma . Does weight bearing exercise 7 days per week in the form of walking. 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 UTD on dental cleanings and sees dentist every 6 months. No planned upcoming dental work or extractions. DXA dated 09/14/20 :FINDINGS: AP SPINE L1-L4: Current: BMD 1.044 g/cm2, Z-score 0.8, T-score -1.1, osteopenia, 14.6% decrease from baseline (<5% change is not significant). Baseline: BMD 1.223 g/cm2. LEFT FEMUR, NECK: Current: BMD 0.683 g/cm2, Z-score -0.8, T-score -2.6, osteoporosis. Baseline: BMD 0.851 g/cm2. LEFT FEMUR, TOTAL: Current: BMD 0.712 g/cm2, Z-score -0.8, T-score -2.4, osteopenia, 26.1% decrease from baseline (<5% change is not significant). Baseline: BMD 0.964 g/cm2. Labs: Secondary workup was negative Currently on risedronate 35 mg q.week. Admits to occasional non-compliance . 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 Headache Myalgia Dermatitis Acute effusion of right ear Otitis externa of both ears New onset headache Dizziness Pain of both earlobes Physical exam SOB (shortness of breath) Concussion with loss of consciousness Elevated liver enzymes Encounter for routine adult physical exam with abnormal findings Screening for colon cancer Ingrown toenail Breast tenderness Liver lesion Hyperlipemia Osteoporosis CKD (chronic kidney disease) Hypothyroid Seizures Asthma Depression HTN (hypertension) Muscle weakness Hypothyroid Conversion disorder with attacks or seizures, acute episode, with psychological stressor Surgical History H/O colonoscopy History of right knee surgery History of lobectomy of thyroid History of arthroscopy of right knee History of ankle surgery History of arthroscopy of left knee History of hysterectomy Family History Father CVD (cardiovascular disease) Stomach ulcer Cardiac arrest H/O heart bypass surgery Mother History of heart attack CHF (congestive heart failure) Lung cancer Diabetes mellitus High cholesterol HTN (hypertension) Hypothyroidism Sister Lung cancer Substance use disorder Brother Colitis Sister No problems noted. Sister Obstetric pulmonary blood clot embolism, antepartum Paternal Aunt Mental health disorder Substance use disorder Maternal Grandmother Mental health disorder Family/Other Substance use disorder Social History Household Members: Family Household Members Other:: brother, 2 cats Housing: House Alcohol intake: never Patient Tobacco Use Status: Never used Tobacco e-Cigarette/Vaping Use: Never Used Second Hand Smoke Exposure: No Current occupational status: disabled Cognitive needs: No Hearing needs: No Vision needs: No Physical Exam Vital Signs: BMI result Body Mass Index 22.2 Assessment & Plan Assessment & Plan (1) Osteoporosis: Code(s): M81.0 - Age-related osteoporosis without current pathological fracture Category: Medical Plan: This is a 66-year-old white female with a history of osteoporosis. Secondary causes have been ruled out. Risk factors include surgical hysterectomy as well as past use of chronic steroids. Recent bone density showed improvement into the osteopenic range The plan is to continue risedronate. Will recheck DEXa in 6 mos. Will check urine NTX. Orders: Orders XR DEXA axial skeleton 5 Months M81.0 - Age-related osteoporosis without current pathological fracture Collagen Crosslinks NTX Today M81.0 - Age-related osteoporosis without current pathological fracture Coding Level of Care Code Est Pt Level 3 (16482) Diagnoses Osteoporosis M81.0
[2024-06-18 10:10] VITALS: BP 126/60; PULSE 81; BMI 22.2
--- OUTSIDE RECORDS SUMMARY | 2024-06-18 10:20 | XMS_ITS | Data Portability ---
Author Organization [facility], In in - [facility] Address [address] [place] [id number] Care Team Providers Care Assembler Carbon Brushes Name Role Phone HIM CCA OTHER Assessment Encounter Date Assessment Date Assessment LastModified by Organization Details LastModified Time 04/27/2022 04/27/2022 67 YOF being seen for cough, nasal congestion and SOB Exam without wheeze. 02 Sat of 96% on RA Pt does have inhaler and was instructed on use covid, flu, and strep neg [email or web address] Not available 04/27/2022 16:17:12 02/15/2023 02/15/2023 I provided real -time medical direction via phone for this encounter, and was available for additional phone based assistance as needed. I have reviewed and agree with the Assessment and Plan as documented by the Service Delivery Manager. Patient given the opportunity to ask questions. Advised needs close follow-up with PCP however-if not improving she may call for another visit with us and if develops CP/severe SOB/turning blue/uncontrolle d n/v/d or black/bloody emesis or stool/ AMS/ syncope/ hi fever to call 911- she verbalized understanding of instructions to me [email or web address] Not available 02/16/2023 13:22:13 06/29/2023 06/29/2023 I have reviewed and agree with the Assessment and Plan as documented by the Service Delivery Manager. I provided real-time medical direction via phone for this encounter, and was available for additional phone based assistance as needed. I have reviewed and agree with the Assessment and Plan as documented by the Service Delivery Manager. I provided real-time medical direction via phone for this encounter, and was available for additional phone based assistance as needed. Patient seen for multiple complaints including chest tenderness for several years, headache and dyspnea on exertion for months, sinus congestion , bilateral lower back pain, generalized abdominal pain, sore throat for weeks. No bowel or bladder symptoms or other red flags for spinal cord catastrophe. Covid and flu and strep testing negative. Vital signs reassuring, well appearing per report. Unclear acute etiology of patient symptoms possible upper respiratory infection. ECG obtained given chest symptoms with no acute ischemic changes. Offered NSAID injection for which patient was accepting. Recommended close follow-up with care team given multiple complaints. Red flags for ED presentation discussed. [email or web address] Not available 07/20/2023 08:46:28 Plan of Treatment Reminders Order Date Submit Date Provider Last Modified By Organization Details Last Modified Time Details Appointments None recorded. Lab rapid SARS CoV 2 Ag, QL IA, respiratory specimen 2021 022 [email or web address] [facility], [address] [place] [address], [id number], 2 16:18:02 rapid flu (A+B) 2021 022 [email or web address] 5 [facility], [address] [place] [address], [id number], 2 16:18:02 rapid strep group A, throat 2021 022 [email or web address] 5 [facility], [address] [place] [address], [phone], 2 16:18:02 rapid SARS CoV 2 Ag, QL IA, respiratory specimen 2022 023 [email or web address] 0 [facility], [address] [place] [address], [id number], 3 15:01:01 rapid flu (A+B) 2022 023 [email or web address] 0 [facility], [address] [place] [address], [phone], 3 15:01:01 Referral None recorded. Procedures None recorded. Surgeries None recorded. Imaging None recorded. Medication Orders albuterol sulfate 2.5 mg/3 mL (0.083 %) solution for nebulizatio n 2022 023 [email or web address] 0 Not available 3 15:04:06 albuterol sulfate 2.5 mg/3 mL (0.083 %) solution for nebulizatio n 2022 023 [facility] #[id number], [address], [place], [phone], 3 15:04:13 prednisone 20 mg tablet 2022 023 [email or web address] 0 Not available 3 15:04:06 prednisone 20 mg tablet 2022 023 [facility] #[id number], [address], [place], [phone], 3 15:04:14 Patient TargetsNo targets recorded. Patient InstructionsNo instructions recorded. Reason for Referral None Reported. Results Created Date Observation Date Name Description Value Unit Range Abnormal Flag Note LastModifiedBy Organization Detail LastModifiedTime 04/27/20 22 04/27/2022 rapid strep group A, throa t Strep negati ve Not Available [facility] [address] [place] [address], [phone], 04/27/2022 16:17:34 04/27/20 22 04/27/2022 rapid flu (A+B) Flu negati ve Not Available [facility] [address] [place] [address], [phone], 04/27/2022 16:17:30 04/27/20 22 04/27/2022 rapid SARS CoV 2 Ag, QL IA, respi rator y speci men rapid SARS CoV 2 Ag, QL IA, respiratory specimen negati ve Not Available [facility] [address] [place] [address], [phone], 04/27/2022 16:17:26 02/16/20 23 02/15/2023 rapid flu (A+B) Flu negati ve Not Available [facility] [address] [place] [address], [id number], 02/15/2023 15:00:42 02/16/20 23 02/15/2023 rapid SARS CoV 2 Ag, QL IA, respi rator y speci men rapid SARS CoV 2 Ag, QL IA, respiratory specimen negati ve Not Available Main - [facility] ed [address] [place] [address], [place], [address], 02/15/2023 15:00:34 Result Notes None recorded. Medical Equipment None Reported. Allergies Allergen ID Allergen Name Allergen Category Reaction Reaction Severity Criticality Documentation Date Start Date Code Code System Note Provider Name and Address Organization Details Recorded Time 3231 Depakene medicatio n Not available Not available Not available 02/16/2023 5 RxNorm Chasity Mark MD [address] [place] [address],[address], [place], [address], [place] [facility] 13:18:24 3233 Dilantin medicatio n Not available Not available Not available 02/16/2023 0 RxNorm Chasity Mark MD [address] [place] [address],[address], [place], [address], [place] [facility] 13:18:32 3234 Tegretol medicatio n Not available Not available Not available 02/16/2023 9 RxNorm Chasity Mark MD [address] [place] [address],[address], [place], [address], [place] [facility] 13:18:53 3235 erythromy akhil medicatio n Not available Not available Not available 02/16/2023 4053 RxNorm and ilosi ne Chasity Mark MD [address] [place] [address],[address], [place], [address], [place] [facility] 13:19:12 3236 Feldene medicatio n Not available Not available Not available 02/16/2023 8 RxNorm Chasity Mark MD [address] [place] [address],[address], [place], [address], [place] [facility] 13:19:27 3237 Dolobid medicatio n Not available Not available Not available 02/16/202358070 6 RxNorm Chasity Mark MD [address] [place] [address],[address], [place], [address], [employer] [facility] 3 13:19:35 3238 Substance with sulfonami de structure and antibacte rial mechanism of action (substanc e) medicatio n Not available Not available Not available 02/16/2023 54749 8003 SNOMED Chasity Mark MD [address] [place] [address],[address], [place], [address], [employer] [facility] 3 13:19:43 3239 Medicinal product containin g penicilli n and acting as antibacte rial agent (product) medicatio n Not available Not available Not available 02/16/2023 67263 05 SNOMED Not Available [facility] 4 03:34:14 3240 codeine medicatio n Not available Not available Not available 02/16/2023 2670 RxNorm Chasity Mark MD [address] [place] [address],[address], [place], [address], [employer] [facility] 3 13:20:02 3241 lisinopri l medicatio n Not available Not available Not available 02/16/2023 62324 RxNorm She was on lisin opril /hydr ochlo rothi azide and does not know which moiet y she had the react ion to Chasity Mark MD [address] [place] [address],[address], [place], [address], [employer] [facility] 3 13:20:49 3242 adhesive tape environme nt,medica tion Not available Not available Not available 02/16/2023 Chasity Mark MD [address] [place] [address],[address], [place], [address], [employer] [facility] 3 13:21:07 7004 Bactrim medicatio n Not available Not available Not available 04/08/2024 63055 9 RxNorm Not Available [facility] 4 03:34:14 Medications Name Sig Start Date Stop Date Status Note LastModified by Organization Details LastModified Time celecoxib 200 mg capsule TAKE 1 CAPSULE BY MOUTH EVERY DAY active Not Available Not Available No t Available fluoxetine 40 mg capsule TAKE 1 CAPSULE BY MOUTH DAILY active Not Available Not Available Not Available atorvastatin 40 mg tablet TAKE 1 TABLET BY MOUTH DAILY active Not Available Not Available Not Available Vitamin B-2 100 mg tablet TAKE 1 TABLET BY MOUTH DAILY active Not Available Not Available Not Available atorvastatin 80 mg tablet TAKE 1 TABLET BY MOUTH DAILY active Not Available Not Available Not Available albuterol sulfate 2.5 mg/3 mL (0.083 %) solution for nebulization USE 3 ML VIA NEBULIZER FOUR TIMES DAILY FOR 10 DAYS active Not Available Not Available No t Available cetirizine 10 mg tablet active Not Available Not Available Not Available sumatriptan 100 mg tablet TAKE 1 TABLET BY MOUTH AT ONSET OF MIGRAINE MAY REPEAT IN 2 HOURS IF NO RELIEF MAX OF 2 TABLETS IN 24 HOURS active Not Available Not Available No t Available meloxicam 15 mg tablet TAKE 1 TABLET BY MOUTH DAILY active Not Available Not Available Not Available prednisone 20 mg tablet TAKE 2 TABLETS BY MOUTH EVERY DAY WITH MEALS FOR 5 DAYS active Not Available Not Available No t Available clonazepam 0.5 mg tablet TAKE 1 TABLET BY MOUTH TWICE DAILY NEEDED FOR ANXIETY OR AGITATION active Not Available Not Available No t Available fluoxetine 10 mg tablet TAKE 1 TABLET BY MOUTH DAILY active Not Available Not Available Not Available levothyroxin e 25 mcg tablet TAKE 1 TABLET BY MOUTH DAILY active Not Available Not Available Not Available cyproheptadi ne 4 mg tablet TAKE 1 TABLET BY MOUTH AT BEDTIME active Not Available Not Available No t Available magnesium oxide 400 mg (241.3 mg magnesium) tablet TAKE 1 TABLET BY MOUTH EVERY NIGHT AT BEDTIME FOR DIARRHEA active Not Available Not Available No t Available meclizine 25 mg tablet TAKE 1 TABLET BY MOUTH DAILY NEEDED FOR DIZZINESS active Not Available Not Available No t Available betamethason e dipropionate 0.05 % topical cream APPLY 1 APPLICATION TOPICALLY TO SKIN IRRITATION DAILY FOR 14 DAYS active Not Available Not Available No t Available montelukast 10 mg tablet TAKE 1 TABLET BY MOUTH DAILY active Not Available Not Available Not Available ibuprofen 600 mg tablet TAKE 1 TABLET BY MOUTH THREE TIMES DAILY WITH FOOD NEEDED FOR HEADACHE active Not Available Not Available No t Available Cipro HC 0.2 %-1 % ear drops,suspen sherlyn SHAKE LIQUID AND INSTILL 3 DROPPERFUL TO AFFECTED EAR TWICE DAILY FOR 7 DAYS active Not Available Not Available No t Available levofloxacin 500 mg tablet TAKE 1 TABLET BY MOUTH DAILY active Not Available Not Available Not Available albuterol sulfate HFA 90 mcg/actuatio n aerosol inhaler INHALE 2 PUFFS INTO THE LUNGS EVERY 6 HOURS NEEDED FOR SHORTNESS OF BREATH OR WHEEZING active Not Available Not Available Not Available topiramate 100 mg tablet TAKE 1 TABLET BY MOUTH TWICE DAILY active Not Available Not Available No t Available fluoxetine 20 mg capsule TAKE 1 TABLET BY MOUTH DAILY active Not Available Not Available Not Available fluticasone propionate 50 mcg/actuatio n nasal spray,suspen sherlyn USE 1 SPRAY IN EACH NOSTRIL DAILY active Not Available Not Available No t Available fludrocortis one 0.1 mg tablet TAKE 1 TABLET BY MOUTH DAILY FOR BLOOD PRESSURE active Not Available Not Available No t Available doxycycline hyclate 100 mg tablet TAKE 1 TABLET BY MOUTH TWICE DAILY active Not Available Not Available No t Available folic acid 800 mcg tablet TAKE 1 TABLET BY MOUTH DAILY active Not Available Not Available Not Available risedronate 35 mg tablet TAKE 1 TABLET BY MOUTH EVERY WEEK active Not Available Not Available No t Available ezetimibe 10 mg tablet TAKE 1 TABLET BY MOUTH DAILY active Not Available Not Available Not Available cholecalcife rol (vitamin D3) 50 mcg (2,000 unit) capsule TAKE 1 CAPSULE BY MOUTH EACH DAY FOR 90 DAYS active Not Available Not Available No t Available Emgality Pen 120 mg/mL subcutaneous pen injector ADMINISTER 1 ML UNDER THE SKIN 1 TIME active Not Available Not Available No t Available Wixela Inhub 250 mcg-50 mcg/dose powder for inhalation INHALE 1 PUFF BY MOUTH TWICE DAILY active Not Available Not Available No t Available Breztri Aerosphere 160 mcg-9mcg-4.8 mcg/actuatio n HFA aerosol inhaler INHALE 2 PUFFS BY MOUTH TWICE DAILY active Not Available Not Available No t Available Paxlovid 300 mg (150 mg x 2)-100 mg tablets in a dose pack TAKE DIRECTED ON PACKAGE active Not Available Not Available No t Available Vitals Date Recorded Respiratory rate Heart rate Body temperature Oxygen saturation Oxygen saturation in Arterial blood by Pulse oximetry Systolic blood pressure Diastolic blood pressure Provider Name and Address Organization Details Last Updated DateTime 3 18 /min 62 /min 97.3 [degF] 99 % 99 % 158 mm[Hg] 72 mm[Hg] Not Available [facility] 3 14:53:01 Date Recorded Oxygen saturation Oxygen saturation in Arterial blood by Pulse oximetry Body weight Body temperature Heart rate Body height Respiratory rate Systolic blood pressure Diastolic blood pressure Provider Name and Address Organization Details Last Updated DateTime 4 98 % 98 % 11042.0 4 g 98.8 [degF] 78 /min 152.4 cm 18 /min 139 mm[Hg] 77 mm[Hg] Not Available [facility] 4 11:54:32 Date Recorded Body temperature Oxygen saturation Oxygen saturation in Arterial blood by Pulse oximetry Respiratory rate Heart rate Systolic blood pressure Diastolic blood pressure Provider Name and Address Organization Details Last Updated DateTime 4 97.2 [degF] 96 % 96 % 16 /min 88 /min 127 mm[Hg] 75 mm[Hg] Not Available [facility] 4 13:32:36 Date Recorded Body temperature Oxygen saturation Oxygen saturation in Arterial blood by Pulse oximetry Heart rate Respiratory rate Heart rate Oxygen saturation Oxygen saturation in Arterial blood by Pulse oximetry Body temperature Respiratory rate Systolic blood pressure Diastolic blood pressure Systolic blood pressure Diastolic blood pressure Provider Name and Address Organization Details Last Updated DateTime 2 97.9 [degF] 96 % 96 % 77 /min 18 /min 77 /min 96 % 96 % 97.9 [degF] 18 /min 135 mm[Hg] 84 mm[Hg] 135 mm[Hg] 84 mm[Hg] Not Available [facility] 2 11:15:04 Social History None recorded. Functional Status None recorded. Mental Status None recorded. Family History Nothing Reported. Medical History No medical history recorded. Gynecological HistoryNo gynecological history recorded. Obstetrics History GPAL:G 0 P 0 0 0 0 Past Encounters Encounter ID Performer Location Encounter Start Date Encounter Closed Date Diagnosis/Indication Diagnosis SNOMED-CT Code Diagnosis ICD10 Code Diagnosis Note [id number] Ferny Harrison MD [facility] [address] [place] [id number] 04/27/2022 11:06:08 05/02/2022 09:06:31 Cough 16003012 R05.9 [id number] Chasity Mark MD [facility] [address] [place] [phone] 02/15/2023 14:52:47 02/15/2023 23:29:56 Viral upper respiratory tract infection 637718620 J06.9 Advised to increase p.o. hydration. rest and follow-up with PCP as soon as possible since she is not a diabetic sucking on a teaspoon of honey will help with cough and throat raspiness/ due to wheezing will add prednisone . I offered Tessalon but she states she cannot afford it. Increased aeration and decreased wheezing after nebulizer- Rx sent to pharmacy for refill for her nebulizer Patient inquired about RSV. Advised we do not currently have the swabs to test for it, but the treatment is purely supportive of the red flags are the same as we have already reviewed. Advised to discuss further with her PCP [id number] Pa Garcia MD [facility] [address] [place] [id number] 06/29/2023 11:10:17 07/21/2023 13:44:47 Low back pain 641436375 M54.50 [id number] Real Mojica MD [facility] [address] [place] [phone] 10/07/2023 13:32:33 10/07/2023 17:22:10 COVID-19 [id number] U07.1 This 68-year-ol d female with COPD was diagnosed with COVID-19 earlier this week and was treated with Paxlovid. She called Payal wyman of dyspnea. She has a nebulizer but hasn't been using it. I recommende d that she use her nebulizer q6h prn dyspnea. She will follow-up with her PCP. The patient agreed with this plan. Health Concerns Section Related Observation LastModified by Organization Detai ls LastModified Time None Recorded Concern Status LastModified by Organization Details LastModified Time None Recorded Advance Directives Directive None Recorded Payers Encounter Date Sequence Insurance Name Policy Number Policy Dugan Covered Member ID Dugan Member ID Guarantor Name 04/27/2022 1 [facility] - DOS PRIOR TO 2022 - DUAL ELIGIBLE (MEDICARE REPLACEMENT/ADV ANTAGE - HMO) Sarahy Neves [id number] Sarahy Neves 02/15/2023 1 [facility] - DOS ON OR AFTER 2022 - DUAL ELIGIBLE - FDC OPTIONS AND ONE CARE (MEDICARE REPLACEMENT/ADV ANTAGE - HMO) Sarahy Villatoro Pura [id number] Sarahy Quijano Pura 06/29/2023 1 [facility] - DOS ON OR AFTER 2022 - DUAL ELIGIBLE - [employer]DC OPTIONS AND ONE CARE (MEDICARE REPLACEMENT/ADV ANTAGE - HMO) Sarahy Villatoro Pura [id number] Sarahy Quijano Pura 10/07/2023 1 [facility] - DOS ON OR AFTER 2022 - DUAL ELIGIBLE - FDC OPTIONS AND ONE CARE (MEDICARE REPLACEMENT/ADV ANTAGE - HMO) Sarahy Villatoro Pura [id number] Sarahy Quijano Pura Notes Date Note Type Note Provider Name and Address Organization Details Recorded Time 04/27/2022 text/html HPI: Russr transferred to [facility] from [facility] [place]. Mbr reports not feeling well since 04/23/22. Mbr reports body aches, cough, runny nose, R ear pressure, fatigue, SOB and chest pressure. Mbr reports hx of asthma, states her SOB/asthma is at her baseline. Mbr states she has not used inhaler as she has not been able to find it, then stated she got a new one which she reported she located during call. 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 Mbr speaking full clear sentences with this information writer during call, no signs of SOB, wheezing or cough noted. Mbr reports new intermittent chest pressure that is on/off, starting last night. Mbr denies current chest pain. Mbr states she is unsure if it is related to anxiety. Mbr anxious during call. Mbr adamantly refuses going to ER or urgent care. Mbr states she called PCP who did not have appts until 05/15/22 appt which is scheduled. Mbr denies known exposure to sick contacts, has not been tested for Covid-19/flu. Mbr denies fever, reports chills. Mbr was offered [facility] visit which she agrees to. Mbr was advised to call [facility]U back for new or worsening sx. Mbr agrees. PMH including asthma, HTN, hx thyroid cancer, syncope, unsteady gait, osteopenia, positional vertigo, migraine, seizure, sleep walking disorder, generalized anxiety disorder, major depressive disorder. ..................... ..................... ..................... ..................... ..................... ..................... ............... CRC Nursing Assessment: Comments: CRC RN DID NOT NEED FURTHER INFO ..................... ..................... ..................... ..................... ..................... ..................... ............... Service Delivery Manager Note: Pt presents awake and alert c/o sinus/right ear pressure, congestion, non productive cough, dyspnea with exertion, and fatigue x4 days. Pt denies f/n/v/d, cp, and dizziness. LS: clear/equal bilaterally. Covid, flu, strep neg. [facility] contacted. Pt educated on supportive care and when to go to the ED. ..................... ..................... ..................... ..................... ..................... ..................... ............... Disposition: Lisa Ferny Harrison MD [address], [place], [address], [facility] [employer] 04/27/2022 16:18:15 02/15/2023 text/html HPI: FRANC is a 68 y/o female with a PMH of asthma, hx thyroid CA, positional vertigo, migraines, seizure disorder, sleep walking disorder, anxiety, HTN, orthostatic hypotension, HLD, non-compliance with medical tx, and depression. FRANC states that she saw her MD in December and ? he heard wheezing in one of my lower lungs.? FRANC has been taking inhalers, which are not helping as much anymore. RUSSR states that her ? lungs have been burning for a week? ; she has a dry, nonproductive cough; a runny nose; and weakness. FRANC denies CP, fevers, wheezing, or radiating jaw/back pain. RUSSR states she is ? drinking and peeing fine, but my appetite is terrible because I don? t feel well.? FRANC is speaking in partial sentences, has a raspy voice, and is ill-sounding. This [facility] RN is unable to appreciate any wheezing or stridor during this assessment. FRANC is strongly advised to triage to ED via 911 for assessment and imaging for her symptoms, but she flatly refuses. FRANC is requesting an in-home visit at this time. FRANC is assured that a referral will be placed on her behalf, but she is strongly encouraged to call 911 for any new or worsening symptoms. She understands and will do so. FRANC is also informed that if the [facility] medic deems it necessary, he or she will dispatch 911 for a higher level of care. FRANC understands and agrees with this plan but wants to start with an in-home visit first. FRANC? s address and phone number on file confirmed. FRANC can be reached at [phone]. ..................... ..................... ..................... ..................... ..................... ..................... ............... [facility] Nursing Assessment: Comments: SOB that started this morning. History of asthma. Taking prescribed inhalers as needed. Used inhaler x1 today. + cough, non-productive x2 days. Voice sounds hoarse. Runny nose. No known fevers. Denies body aches, chills, or sore throat. ..................... ..................... ..................... ..................... ..................... ..................... ............... Service Delivery Manager Note From Liban Jacob: PT complains of increasing SOB at rest with dry cough and increasing fatigue x 5 days. PT was flushed in appearance and reports decreased appetite and PO fluid intake, 12-20oz daily in recent days. PT denies chest and abdominal pain and no abdominal tenderness was noted upon examination. PT reports inspiratory/ expiratory discomfort described as burning x 1 week. PT denies lightheadedness and dizziness. Covid and Flu swabs were performed and were negative. PT reports that she is out of Albuterol doses and has been using Albuterol inhaler 4 x daily with no improvement. contacted and advised to administer 40 MG PO Prednisone, Albuterol (2.5 MG) via nebulizer and PT was advised to follow up with PCP in coming days. PT improved after nebulizer. PT education was provided related to symptom worsening. [facility] ..................... ..................... ..................... ..................... ..................... ..................... ............... Disposition: FulfilledSEGMD: Patient ran out of her albuterol for her nebulizer a while ago. She only has her MDI. It is not adequate to help with her cough. She denies sore throat or dysphagia -she just has no appetite. Her PCP scheduled her for chest x-ray but she have to wait at the facility and did not want to go. She denies fevers, chills, sweats. She also denies nausea vomiting diarrhea or melena or hematochezia Chasity Mark MD [address] [place] [address],[address], [place], [phone], [facility] 02/16/2023 13:25:30 06/29/2023 text/html HPI: Member calls into the CRU stating that she has been having constant bilateral upper and lower back pain since yesterday afternoon. Member states that the pain gets worse when she takes a deep breath. Member states that it is hard to take a deep breathe due to the pain and she feels SOB. Member endorses chest pain only when she touches her chest, 8/10 pain. Member states that she has had this chest pain since she had covid (which was two years ago June) and it has not gotten worse, still hurts only when she touches it. Member endorses being on an airplane May 27 and Jun 17 in which both days she had a fall. Member states that she has had a few falls in the past month in which she landed on her bottom and does not know if she has any injuries from her falls, but this back pain just started yesterday. Member also endorses sneezing, coughing, nasal congestion and a sore throat. Member denies fever and states that she took a COVID test and it was negative. Member contacted her PCP who advised her to go to the ED. Member refusing to go to the ED and requesting a home visit. PMH: includes but not limited to HTN, asthma, hx of thyroid cancer, syncope, Seizure disorder, Moderate episode of recurrent major depressive disorder, gait instability, Orthostatic hypotension, hyperlipidemia, hypothyroidism ..................... ..................... ..................... ..................... ..................... ..................... ............... [facility] Nurse Triage Notes (Davion Rojo): Comments: HPI was reviewed by this information writer - No further information needed at this time. Waqas AQUINO ..................... ..................... ..................... ..................... ..................... ..................... ............... Service Delivery Manager Note From Stacie Han: Sent to a call for a pt with multiple complaints. [facility] arrives on scene, pt is alert and oriented, airway is patent, gait is steady. Pt appears anxious and frustrated with symptom longevity. Pt complains of bilateral chest pain with palpation x 2 years, headache and sob with exertion/pain x months, bilateral sinus pain, intermittent nasal congestion/runny nose, ear itching, and bilateral lower back pain over 1 month, dry cough x 2-4 weeks, intermittent nausea and general abd pain x 2 weeks, sore throat x 1 week, and right side back pain (described as pins and needles) x 2 days. Pt states worst symptoms are head pain and back pain.Pt denies dizziness, vomiting, diarrhea, or fever. Pt takes Tylenol 1gm daily and Motrin 600mg each night with little effect. Pt has seen PCP and neuro for most symptoms, with recent head CT. Pt is scheduled to see PCP on 07/16 and neuro sometime in Jul. Rapid covid test: neg; Rapid flu test: neg; Rapid strep test: neg; 12 lead ECG: uploaded to [employer] BP:139/77, P:78, RR:18, SpO2:98% RA, T:98.8; Head: sinus tenderness; Throat: erythema noted, no edema or exudate; Chest: bilateral chest tenderness; Lung sounds: clear bilaterally; Abdomen: soft, non-tender, no distention; Back: no tenderness; Extremities: unremarkable; Skin: pink, warm, dry; [facility] consulted and will request earlier follow up appt with PCP. [facility] orders Ketorolac 15mg IM. Ketorolac 15mg IM administered without incident. Red flags discussed. Pt has no further questions. ..................... ..................... ..................... ..................... ..................... ..................... ............... Disposition: Fulfilled Pa Garcia MD [address] [facility],[address], [place], [address], [employer] 07/20/2023 08:46:37 10/07/2023 text/html HPI: mbr tested positive for covid on Sunday was prescribed paxlovid, states feeling worse with complaints of increased SOB/N/fever/chills/po or po intake, feeling dizzy lightheaded, and weak. requesting [facility] visit for evaluation Protocol Used: Cough - Acute Productive Protocol-Based Disposition: Consider [facility] clinician, MD/PIG CASTING MACHINE OPERATOR triage, PCP, or Urgent Care Visit within 4 Hours Positive Triage Questions: * [1] MILD difficulty breathing (e.g., minimal/no SOB at rest, SOB with walking, pulse < 100) AND [2] still present when not coughing * [1] Continuous (nonstop) coughing interferes with work or school AND [2] no improvement using cough treatment per Care Advice * Coughing up lissa-colored (reddish-brown) sputum * Fever present > 3 days (72 hours) Negative Triage Questions: * SEVERE difficulty breathing (e.g., struggling for each breath, speaks in single words) * [1] Difficulty breathing AND [2] exposure to flames, smoke, or fumes * [1] Stridor AND [2] difficulty breathing * [1] MODERATE difficulty breathing (e.g., speaks in phrases, SOB even at rest, pulse 100-120) AND [2] still present when not coughing ..................... ..................... ..................... ..................... ..................... ..................... ............... [facility] Nurse Triage Notes (Ryan Patricio): Comments: HPI reviewed by this RN, no further information needed to process visit -MILES Mclaughlin MD [address] [facility],[address], [place], [address], [facility] [employer] 10/07/2023 13:37:29 OBGyn Episode No OBEpisode recorded.
== END 2024-06-18 10:32 | disposition home or self-care (01) ==
PROVIDERS: PCP Nurse Practitioner Family; Visit Provider Internal Medicine Endocrinology, Diabetes & Metabolism
DX: M81.0 Age-related osteoporosis without current pathological fracture (principal)
CPT/HCPCS: 99213

== ENCOUNTER → 2024-06-18 10:04 | Outpatient (BNVA) | payer OTHER, SELFPAY | PROVIDERS: PCP Nurse Practitioner Family; Visit Provider Internal Medicine Endocrinology, Diabetes & Metabolism | DX: M81.0 Age-related osteoporosis without current pathological fracture (principal) | CPT/HCPCS: 99212 ==

== ENCOUNTER 2024-06-25 11:26 | Outpatient (AMB) | payer OTHER, SELFPAY ==
--- NOTE | 2024-06-25 11:39 | A.OFFVIS_ITS ---
Vital Signs 06/25/24 11:40 Height 5 ft 1 in Weight 116 lb 8 oz BMI 22.0 BP 110/68 Blood Pressure Location Lt brachial Position Sitting Pulse 85 Pulse Source Pulse Oximeter Pulse Oximetry (%) 97 Oxygen Delivery Method Room Air Intake Visit Reasons: Follow up Allergies Penicillins [PENICILLINS] Allergy (Intermediate, Verified 06/25/24 11:42) HIVES carbamazepine [From Tegretol] Allergy (Mild, Verified 06/25/24 11:42) HIVES diflunisal [From Dolobid] Allergy (Mild, Verified 06/25/24 11:42) HIVES erythromycin base [From Edwin-Tab] Allergy (Mild, Verified 06/25/24 11:42) HIVES phenytoin [From Dilantin] Allergy (Mild, Verified 06/25/24 11:42) RASH,HIVES piroxicam [From Feldene] Allergy (Mild, Verified 06/25/24 11:42) HIVES sulfamethoxazole [From Bactrim] Allergy (Mild, Verified 06/25/24 11:42) HIVES trimethoprim [From Bactrim] Allergy (Mild, Verified 06/25/24 11:42) HIVES valproic acid [From Depakene] Allergy (Mild, Verified 06/25/24 11:42) HIVES Depakene Allergy (Unknown, Verified 06/25/24 11:42) Rash hydrochlorothiazide [HYDROCHLOROTHIAZIDE] Allergy (Unknown, Verified 06/25/24 11:42) rash lisinopril [LISINOPRIL] Allergy (Unknown, Verified 06/25/24 11:42) rash codeine [Codeine] Adverse Reaction (Intermediate, Verified 06/25/24 11:42) NAUSEA & VOMITING rash doxycycline Adverse Reaction (Verified 06/25/24 11:42) Stomach Upset ENVIRONMENTAL Allergy (Intermediate, Uncoded 06/18/24 10:12) ASTHMA,LOSES VOICE TAPE,PLASTIC Allergy (Intermediate, Uncoded 06/18/24 10:12) RASH surgical tape Allergy (Unknown, Uncoded 06/18/24 10:12) unknown Medication List - Last Reconciled 06/25/24 by PRINCE Villalobos albuterol sulfate 2.5 mg (3 mL) inhalation QID PRN 90 days albuterol sulfate 90 mcg/actuation 2 puffs PO Q6H PRN aspirin (Adult Low Dose Aspirin) 81 mg PO DAILY atorvastatin 80 mg PO DAILY 90 days betamethasone dipropionate 0.05% 1 appl topical DAILY 14 days bisacodyl (Dulcolax (bisacodyl)) 10 mg (2 x 5 mg) PO BEDTIME 2 days cetirizine (All Day Allergy (cetirizine)) 10 mg PO DAILY PRN 30 days cholecalciferol (vitamin D3) 50 mcg PO DAILY 90 days clonazepam 0.5 mg PO BID PRN 60 days ezetimibe 10 mg PO DAILY fludrocortisone 0.1 mg PO DAILY 90 days fluoxetine 60 mg (3 x 20 mg) PO DAILY 90 days fluticasone propion-salmeterol 250-50 mcg/dose (Wixela Inhub) 1 ea inhalation BID 90 days fluticasone propionate 50 mcg/actuation 1 spray intranasal DAILY 90 days folic acid 0.8 mg PO DAILY galcanezumab-gnlm (Emgality Pen) 120 mg subcut ONCE 30 days levothyroxine 25 mcg PO DAILY [[employer] unit As directed] magnesium oxide 400 mg PO BEDTIME 90 days meclizine 25 mg PO DAILY PRN montelukast 10 mg PO DAILY 90 days oxymetazoline 0.05% (Afrin (oxymetazoline)) 2 sprays intranasal Q12H PRN 3 days polyethylene glycol 3350 (Miralax) 238 grams PO ONCE 1 day pseudoephedrine HCl ER 120 mg PO Q12H 5 days riboflavin (vitamin B2) 400 mg PO DAILY 90 days risedronate 35 mg PO QWEEK sumatriptan succinate take 1 tab at onset of headache; if no relief, may repeat 1 tab after at least 2 hrs; max = 2 tabs/24 hrs PO 30 days topiramate 100 mg PO BID 90 days HPI Comments Details: 69-yr-old female presents for f/u visit of functional neurological disorder and migraine. Pt reports she has been having a prolonged sinus, sore throat, and right/left ear pain s/s x's months- despite being tx'd w/ doxyclycine and allergy tx's. She has head pressure when bending over or when laying totally flat and also back of head discomfort. She states this could be migraine, but is not sure. She also endorses ears feel itchy, vision changes when she is doing her avery art for too long, blurry vision. whooshing/heart beat/whistling tinnitus when sitting/standing/laying down, and a few times thought her name was being called when no one in the house. She is generally prone to dizziness. She notes that she recently traveled to [place] to see her son, and these symptoms Pt states he has not had her Emgality injection since May- states they stopped sending it to her. She cannot say how often she is having a headache- states he has lost track. However, I am not Emgality was previously effective- she had greater than 30% reduction in migraine severity and frequency with the use. She is using Sumatriptan- states it does help. Pt states she has been falling and still falling going up/down the stairs, but she just gets up and moves along. Patient denies orthostatic lightheadedness contributing to falls. States her PCP has advised her to do PT, but she does not think this would help as she has been clumsy and prone to walking into things/down stairs since she was a child. Pt reports her brother told her she was sleep walking outside- was walking down the street, but she does not recall when this happened. Patient states her depression and anxiety always there. Patient states that everyone, including this provider, has told her that ?everything is in my head? and she does not understand this. She states she does not make herself fall. She does not know what she could do to prevent this from happening. She still sees her therapist regularly. PENDING SALE TO [facility] Medical History Conversion disorder Screening for breast cancer Screening for breast cancer Dyslipidemia Screening for osteoporosis Ataxic gait Exposure to COVID-19 virus Pneumonia Chest pain Dyspnea Pre-syncope COVID-19 Convulsion disorder Falls REM sleep behavior disorder Headache Myalgia Dermatitis Acute effusion of right ear Otitis externa of both ears New onset headache Dizziness Pain of both earlobes Physical exam SOB (shortness of breath) Concussion with loss of consciousness Elevated liver enzymes Encounter for routine adult physical exam with abnormal findings Screening for colon cancer Ingrown toenail Breast tenderness Liver lesion Hyperlipemia Osteoporosis CKD (chronic kidney disease) Hypothyroid Seizures Asthma Depression HTN (hypertension) Muscle weakness Hypothyroid Conversion disorder with attacks or seizures, acute episode, with psychological stressor Surgical History H/O colonoscopy History of right knee surgery History of lobectomy of thyroid History of arthroscopy of right knee History of ankle surgery History of arthroscopy of left knee History of hysterectomy Family History Father CVD (cardiovascular disease) Stomach ulcer Cardiac arrest H/O heart bypass surgery Mother History of heart attack CHF (congestive heart failure) Lung cancer Diabetes mellitus High cholesterol HTN (hypertension) Hypothyroidism Sister Lung cancer Substance use disorder Brother Colitis Sister No problems noted. Sister Obstetric pulmonary blood clot embolism, antepartum Paternal Aunt Mental health disorder Substance use disorder Maternal Grandmother Mental health disorder Family/Other Substance use disorder Social History Household Members: Family Household Members Other:: brother, 2 cats Housing: House Alcohol intake: never Patient Tobacco Use Status: Never used Tobacco e-Cigarette/Vaping Use: Never Used Second Hand Smoke Exposure: No Current occupational status: disabled Cognitive needs: No Hearing needs: No Vision needs: No Physical Exam Vital Signs: Last Vital Signs Pulse 85 06/25/24 11:40 BP 110/68 06/25/24 11:40 Pulse Ox 97 06/25/24 11:40 Oxygen Delivery Method Room Air 06/25/24 11:40 BMI result Body Mass Index 22.0 Const General: cooperative and no acute distress Orientation/consciousness: patient oriented x3 Resp Effort & Inspection: normal respiratory effort and able to speak in complete sentences Neuro Other: A&O- some STM lapses. Gait- slow to stand, steadier today without walker- states her walkers at home.. General: patient oriented x3 Cranial nerves: Yes CN's II-XII intact bilaterally Cognition (Neuro): normal cognition Psych Appearance: grossly normal Mental Status: mental status grossly normal Speech and movement: Clear speech present Affect: normal affect Attitude: cooperative Insight: Limited insight present (Psych) Assessment & Plan Assessment & Plan (1) Worsening headaches: Code(s): R51.9 - Headache, unspecified Category: Medical (2) Pulsatile tinnitus: Code(s): H93.A9 - Pulsatile tinnitus, unspecified ear Category: Medical (3) Conversion disorder with attacks or seizures, acute episode, with psychological stressor: Code(s): F44.5 - Conversion disorder with seizures or convulsions Category: Medical (4) Migraine: Code(s): G43.909 - Migraine, unspecified, not intractable, without status migrainosus Category: Medical (5) Falls: Code(s): W19.XXXA - Unspecified fall, initial encounter Category: Medical (6) Depression: Code(s): F32.9 - Major depressive disorder, single episode, unspecified Category: Medical Plan For complaint of worsening headache with pulsatile tinnitus: We will request brain MRI w/wo to exclude secondary intracranial etiologies. For migraine headache: Continue Roboflavin 400mg qam Continue Magnesium 400mg qhs Continue Topiramate 100mg bid- for headache and convulsion prevention. Resume Emgality 120mg sc q month, as pt has had good reduction in migraine from use. Continue Tylenol and Sumatriptan prn. ? For recurrent falls, mood, history of sleep walking, OH: Patient encouraged to do physical therapy as suggested by PCP. Continue increased po intake- try taking several small meals/snacks which include protein and complex CHO. Use walker consistently. Continue Fludrocortisone. Continue Fluoxetine 60mg qd. Continue Clonazepam 0.5mg bid. Continue working w/ her therapist. Patient has made progress- she recently has been able to identify her feelings of anxiety/depression. Discuss that I do not believe that patient is ?faking? or intentionally causing her symptoms. Discussed that the mind and body initiate many involuntary physical and emotional responses to physical or emotional stress, many of which are beneficial to us such as changes in her breathing pattern. Explained further, however, that at times these responses can be maladaptive and this cause other problems, such as sleepwalking outside your busy street. However, there are treatments which can be helpful, such as those offered at the [facility] functional neurological disorder clinic. Patient today verbalizes that she would be willing to have a consult care and to work with them. Thus, consult order written today. Patient may need PT1 transportation and/or family assistance to attend these appointments. Monitor tremor. Follow-up in clinic in 6 months or sooner prn Orders: Orders MR head/brain wo/w con Today H93.A9 - Pulsatile tinnitus, unspecified ear, R51.9 - Headache, unspecified Referrals Neurology Referral F44.5 - Conversion disorder with seizures or convulsions Medications: Refilled sumatriptan succinate take 1 tab at onset of headache; if no relief, may repeat 1 tab after at least 2 hrs; max = 2 tabs/24 hrs PO 30 days 12 tabs 6RF riboflavin (vitamin B2) 400 mg PO DAILY 90 days 90 tabs 1RF magnesium oxide 400 mg PO BEDTIME 90 days 90 tabs 1RF diarrhea clonazepam 0.5 mg PO BID 60 days PRN 120 tabs 1RF anxiety/agitation topiramate 100 mg PO BID 90 days 180 tabs 1RF galcanezumab-gnlm (Emgality Pen) 120 mg subcut ONCE 30 days 1 mL 6RF Coding Level of Care Code Est Pt Level 4 (90604) Diagnoses Worsening headaches R51.9 Pulsatile tinnitus H93.A9 Conversion disorder with attacks or seizures, acute episode, with psychological stressor F44.5 Migraine G43.909 Falls W19.XXXA Depression F32.9
[2024-06-25 11:40] VITALS: BP 110/68; PULSE 85; O2SAT 97; BMI 22.0
--- OUTSIDE RECORDS SUMMARY | 2024-06-25 13:34 | XMS_ITS | Data Portability ---
Author Organization [employer] [place] in - [employer] Address [address] [place] [address] Care Team Providers Care Vacation Planner Name Role Phone HIM CCA OTHER Assessment [...] Assessment and Plan as documented by the Educational Technologist. Patient given the opportunity to ask questions. Advised needs close follow-up with PCP however-if not improving she may call for another visit with us and if develops CP/severe SOB/turning blue/uncontrolle d n/v/d or black/bloody emesis or stool/ AMS/ syncope/ hi fever to call 911- she verbalized understanding of instructions to me [email or web address] Not available 02/16/2023 13:22:13 06/29/2023 06/29/2023 I have reviewed and agree with the Assessment and Plan as documented by the Educational Technologist. I provided real-time medical direction via phone for this encounter, and was available for additional phone based assistance as needed. I have reviewed and agree with the Assessment and Plan as documented by the Educational Technologist. I provided real-time medical direction via phone [...] 2021 022 [email or web address] 5 [facility], [address] [place] [address], [phone], 2 16:18:02 rapid flu (A+B) 2021 022 [email or web address] 5 [facility], [address] [place] [address], [address], 2 16:18:02 rapid strep group A, throat 2021 022 [email or web address] 5 [facility], [address] [place] [address], [address], 2 16:18:02 rapid SARS CoV 2 Ag, QL IA, respiratory specimen 2022 023 [email or web address] 0 [facility], [address] [place] [address], [address], 3 15:01:01 rapid flu (A+B) 2022 023 [email or web address] 0 [facility], [address] [place] [address], [address], 3 15:01:01 Referral None recorded. Procedures None recorded. Surgeries None recorded. Imaging None recorded. Medication Orders albuterol sulfate 2.5 mg/3 mL (0.083 %) solution for nebulizatio n 2022 023 [email or web address] 0 Not available 3 15:04:06 albuterol sulfate 2.5 mg/3 mL (0.083 %) solution for nebulizatio n 2022 023 [id number], [address] [place], [place], [id number], 3 15:04:13 prednisone 20 mg tablet 2022 023 [email or web address] 0 Not available 3 15:04:06 prednisone 20 mg tablet 2022 023 [facility] #[id number], [address], [place], [id number], 3 15:04:14 Patient TargetsNo targets recorded. Patient InstructionsNo instructions recorded. Reason for Referral None Reported. Results Created Date Observation Date Name Description Value Unit Range Abnormal Flag Note LastModifiedBy Organization Detail LastModifiedTime 04/27/20 22 04/27/2022 rapid strep group A, throa t Strep negati ve Not Available [facility] [address] [place] [address], [address], 04/27/2022 16:17:34 04/27/20 22 04/27/2022 rapid flu (A+B) Flu negati ve Not Available [facility] [address] [place] [address], [address], 04/27/2022 16:17:30 04/27/20 22 04/27/2022 rapid SARS CoV 2 Ag, QL IA, respi rator y speci men rapid SARS CoV 2 Ag, QL IA, respiratory specimen negati ve Not Available [facility] [address] [place] [address], [address], 04/27/2022 16:17:26 02/16/20 23 02/15/2023 rapid flu (A+B) Flu negati ve Not Available [facility] [address] [place] [address], [address], 02/15/2023 15:00:42 02/16/20 23 02/15/2023 rapid SARS CoV 2 Ag, QL IA, respi rator y speci men rapid SARS CoV 2 Ag, QL IA, respiratory specimen negati ve Not Available Main - [facility] ed [address] [place] [address], [place], [address], 02/15/2023 15:00:34 Result Notes None recorded. Medical Equipment None Reported. Allergies Allergen ID Allergen Name Allergen Category Reaction Reaction Severity Criticality Documentation Date Start Date Code Code System Note Provider Name and Address Organization Details Recorded Time 3231 Depakene medicatio n Not available Not available Not available 02/16/2023 5 RxNorm Chasity Mark MD [address] [place] [address],[address], [place], [address], [place] [facility] [employer] 13:18:24 3233 Dilantin medicatio n Not available Not available Not available 02/16/2023 0 RxNorm Chasity Mark MD [address] [place] [address],[address], [place], [address], [place] [employer] [employer] 13:18:32 3234 Tegretol medicatio n Not available Not available Not available 02/16/2023 9 RxNorm Chasity Mark MD [address] [place] [address],[address], [place], [address], [place] [employer] [employer] 13:18:53 3235 erythromy akhil medicatio n Not available Not available Not available 02/16/2023 4053 RxNorm and ilosi ne Chasity Mark MD [address] [place] [address],[address], [place], [address], [place] [employer] [employer] 13:19:12 3236 Feldene medicatio n Not available Not available Not available 02/16/2023 8 RxNorm Chasity Mark MD [address] [place] [address],[address], [place], [address], [place] [facility] [employer] 13:19:27 3237 Dolobid medicatio n Not available Not available Not available 02/16/202365248 6 RxNorm Chasity Mark MD [address] [place] [address],[address], [place], [address], [employer] 3 13:19:35 3238 Substance with sulfonami de structure and antibacte rial mechanism of action (substanc e) medicatio n Not available Not available Not available 02/16/2023 07851 8003 SNOMED Chasity Mark MD [address] [place] [address],[address], [place], [address], [employer] 3 13:19:43 3239 Medicinal product containin g penicilli n and acting as antibacte rial agent (product) medicatio n Not available Not available Not available 02/16/2023 67268 05 SNOMED Not Available [employer] - [employer] 4 03:34:14 3240 codeine medicatio n Not available Not available Not available 02/16/2023 2670 RxNorm Chasity Mark MD [address] [place] [address],[address], [place], [address], [employer] 3 13:20:02 3241 lisinopri l medicatio n Not available Not available Not available 02/16/2023 73251 RxNorm She was on lisin opril /hydr ochlo rothi azide and does not know which moiet y she had the react ion to Chasity Mark MD [address] [place] [address],[address], [place], [address], [employer] 3 13:20:49 3242 adhesive tape environme nt,medica tion Not available Not available Not available 02/16/2023 Chasity Mark MD [address] [place] [address],[address], [place], [address], [employer] 3 13:21:07 7004 Bactrim medicatio n Not available Not available Not available 04/08/2024 58606 9 RxNorm Not Available [facility] - production [...] Updated DateTime 4 98 % 98 % 71226.0 4 g 98.8 [degF] 78 /min 152.4 cm 18 /min 139 mm[Hg] 77 mm[Hg] Not Available [employer] 4 11:54:32 Date Recorded Body temperature Oxygen saturation Oxygen saturation in Arterial blood by Pulse oximetry Respiratory rate Heart rate Systolic blood pressure Diastolic blood pressure Provider Name and Address Organization Details Last Updated DateTime 4 97.2 [degF] 96 % 96 % 16 /min 88 /min 127 mm[Hg] 75 mm[Hg] Not Available [employer] 4 13:32:36 Date Recorded Body temperature Oxygen [...] mm[Hg] 135 mm[Hg] 84 mm[Hg] Not Available [employer] 2 11:15:04 Social History None recorded. Functional [...] [id number] Ferny Harrison MD [facility] [address] [place] [address] 04/27/2022 11:06:08 05/02/2022 09:06:31 Cough 25458750 R05.9 12959 Chasity Mark MD [facility] [address] [place] [address] 02/15/2023 14:52:47 02/15/2023 23:29:56 Viral upper respiratory tract infection 476759001 J06.9 Advised to increase p.o. hydration. rest [...] Advised to discuss further with her PCP [id number] Pa Garcia MD [facility] [address] [place] [address] 06/29/2023 11:10:17 07/21/2023 13:44:47 Low back pain 569995500 M54.50 37999 Real Mojica MD [facility] [address] [place] [address] 10/07/2023 13:32:33 10/07/2023 17:22:10 COVID-19 [id number] U07.1 This 68-year-ol d female with COPD [...] Dugan Member ID Guarantor Name 04/27/2022 1 [facility] - DOS PRIOR TO 2022 - DUAL ELIGIBLE (MEDICARE REPLACEMENT/ADV ANTAGE - HMO) Sarahy Neves [id number] Sarahy Neves 02/15/2023 1 [facility] - DOS ON OR AFTER 2022 - DUAL ELIGIBLE - JAIL OPTIONS AND ONE CARE (MEDICARE REPLACEMENT/ADV ANTAGE - HMO) Sarahy Villatoro Pura [id number] Sarahy Quijano Pura 06/29/2023 1 [facility] - DOS ON OR AFTER 2022 - DUAL ELIGIBLE - JAIL OPTIONS AND ONE CARE (MEDICARE REPLACEMENT/ADV ANTAGE - HMO) Sarahy Villatoro Pura [id number] Sarahy Quijano Pura 10/07/2023 1 [facility] - DOS ON OR AFTER 2022 - DUAL ELIGIBLE - JAIL OPTIONS AND ONE CARE (MEDICARE REPLACEMENT/ADV ANTAGE - HMO) Sarahy Villatoro Pura [id number] Sarahy Quijano Pura Notes Date Note Type Note Provider Name and Address Organization Details Recorded Time 04/27/2022 text/html HPI: Russr transferred to [facility] from [facility]. Mbr reports not feeling well since 04/23/22. [...] out of breath and exhausted after doing lens assistant which is not her baseline. Mbr speaking full clear sentences with this publications writer during call, no signs of SOB, [...] ..................... ..................... ..................... ..................... ..................... ..................... ............... Educational Technologist Note: Pt presents awake and alert c/o sinus/right ear pressure, congestion, non productive cough, dyspnea with exertion, and fatigue x4 days. Pt denies f/n/v/d, cp, and dizziness. LS: clear/equal bilaterally. Covid, flu, strep neg. [facility] contacted. Pt educated on supportive care and when to go to the ED. ..................... ..................... ..................... ..................... ..................... ..................... ............... Disposition: Lisa Ferny Harrison MD [address], [place], [address], [employer] [facility] [employer] 04/27/2022 16:18:15 02/15/2023 text/html HPI: FRANC is [...] file confirmed. FRANC can be reached at [phone]. ..................... ..................... ..................... ..................... ..................... ..................... ............... [facility] Nursing Assessment: Comments: SOB that started this morning. History of asthma. Taking prescribed inhalers as needed. Used inhaler x1 today. + cough, non-productive x2 days. Voice sounds hoarse. Runny nose. No known fevers. Denies body aches, chills, or sore throat. ..................... ..................... ..................... ..................... ..................... ..................... ............... Educational Technologist Note From Liban Jacob: PT complains of [...] or melena or hematochezia Chasity Mark MD [address] [place] [address],[address], [place], [address], [employer] 02/16/2023 13:25:30 06/29/2023 text/html HPI: Member calls [...] Rojo): Comments: HPI was reviewed by this publications writer - No further information needed at this time. Waqas AQUINO ..................... ..................... ..................... ..................... ..................... ..................... ............... Educational Technologist Note From Stacie Han: Sent to a [...] test: neg; 12 lead ECG: uploaded to [employer] [facility]. BP:139/77, P:78, RR:18, SpO2:98% RA, T:98.8; Head: sinus tenderness; Throat: erythema noted, no edema or exudate; Chest: bilateral chest tenderness; Lung sounds: clear bilaterally; Abdomen: soft, non-tender, no distention; Back: no tenderness; Extremities: unremarkable; Skin: pink, warm, dry; [facility] consulted and will request earlier follow up appt with PCP. [facility] orders Ketorolac 15mg IM. Ketorolac 15mg IM administered without incident. Red flags discussed. Pt has no further questions. ..................... ..................... ..................... ..................... ..................... ..................... ............... Disposition: Fulfilled Pa Garcia MD [address] [facility],[address], [place], [address], [employer] 07/20/2023 08:46:37 10/07/2023 text/html HPI: mbr tested positive for covid on Sunday was prescribed paxlovid, states feeling worse with complaints of increased SOB/N/fever/chills/po or po intake, feeling dizzy lightheaded, and weak. requesting [facility] visit for evaluation Protocol Used: Cough - Acute Productive Protocol-Based Disposition: Consider [facility] Community clinician, MD/ICU REGISTERED NURSE triage, PCP, or Urgent Care Visit within [...] to process visit -MILES Mclaughlin MD [address] [facility],[address], [place], [address], [facility] [employer] 10/07/2023 13:37:29 OBGyn Episode No OBEpisode recorded.
== END 2024-06-25 12:47 | disposition home or self-care (01) ==
PROVIDERS: PCP Nurse Practitioner Family; Visit Provider Nurse Practitioner Family
DX: R51.9 Headache, unspecified (principal); H93.A9 Pulsatile tinnitus, unspecified ear; F44.5 Conversion disorder with seizures or convulsions; G43.909 Migraine, unspecified, not intractable, without status migrainosus; R29.6 Repeated falls; F32.9 Major depressive disorder, single episode, unspecified
CPT/HCPCS: 99214

== ENCOUNTER → 2024-06-25 11:26 | Outpatient (BNVA) | payer OTHER, SELFPAY | PROVIDERS: PCP Nurse Practitioner Family; Visit Provider Nurse Practitioner Family | DX: G43.909 Migraine, unspecified, not intractable, without status migrainosus (principal); H93.A9 Pulsatile tinnitus, unspecified ear; F44.5 Conversion disorder with seizures or convulsions; F32.9 Major depressive disorder, single episode, unspecified; Z91.81 History of falling | CPT/HCPCS: 99212 ==

== ENCOUNTER 2024-07-02 12:43 | Outpatient (RCR) | payer OTHER, SELFPAY ==
[2024-07-02 12:54] VITALS: BP 138/80; PULSE 88; O2SAT 97
--- NOTE | 2024-07-02 14:51 | MHC.PT.EP ---
[facility] [place] Office [place] Office [place] Office [address] Robin Polo [address] [phone] F: [phone] F: [phone] F: [phone] F: [phone] Physical Therapy Plan of Care Date of Evaluation: 07/02/24 Date of Surgery: Diagnosis: This is a 69 female presenting to skilled PT with a script BPPV. Assessment: This is a 69 female presenting to skilled PT with a script BPPV. Patient reporting that her symptoms have been ongoing since she was a kid and she asked her PCP for a referral as she thinks she has vertigo. She states that she cannot look at spinning objects, blinking lights, go around in circles , spine fast in a akutan, bend down or look up. Her symptoms are described as the room spinning. Symptoms might happen for about 5 mins but she states that she does not time it so she really does not know. She states that her balance has been off since she was a kid as well; this causes her to walk into things like trees, telephone polls, etc. She states that she falls all of the time as well. Examination of this patient was stopped midway assessment. While assessing the patient's cervical AROM patient started swaying, eyes were blinking rapidly, she was unresponsive and body was flailing. At this time I stopped assessment as she was unresponsive, this was not a typical vertigo or vestibular response and PT/further tx or assessment was deemed inappropriate and contraindicated. When I stated that I would call an ambulance the patient came to. She started to become emotional at this point stating that her neurologist thinks it is all in her head/that she is faking it and that no one listens to her. I repeatedly told her speak with her doctor about her concerns and I could also call an ambulance for assessment at the ER as her symptoms were not something I could help her with. 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 At this time she is not demonstrating characteristics of BPPV and I would recommend she follow up with referring physician about her next steps of care. Frequency and Duration: The patient will be seen Short Term Goals: Not recommended at this time Prison Goals: Not recommended at this time. Treatment Plan: Modalities to reduce pain, spasms and effusion. Manual therapy to restore motion and function. Therapeutic exercise to improve strength and flexibility. Neuromuscular re-education for posture and balance. Therapeutic activities to return to functional activities of daily living. Electronically signed by: Demi Mcfarlane PT Please sign and return to therapist. Thank you for your referral.
--- NOTE | 2024-08-01 07:53 | MHC.PT.DC ---
[facility] [place] Office [place] Office [place] Office [address] Robin Polo [address] [phone] F: [phone] F: [phone] F: [phone] F: [phone] Physical Therapy Discharge Report Diagnosis: This is a 69 female presenting to skilled PT with a script BPPV. Date of Surgery: Date of Evaluation: 07/02/24 Date of Discharge: 08/01/24 Treatments to Date: 0 Cancellations to Date: 0 No Shows to Date: 0 Discharge Status: Recommend MD Follow-up Discharge Summary: This is a 69 female presenting to skilled PT with a script BPPV. Patient reporting that her symptoms have been ongoing since she was a kid and she asked her PCP for a referral as she thinks she has vertigo. She states that she cannot look at spinning objects, blinking lights, go around in circles , spine fast in a eklutna, bend down or look up. Her symptoms are described as the room spinning. Symptoms might happen for about 5 mins but she states that she does not time it so she really does not know. She states that her balance has been off since she was a kid as well; this causes her to walk into things like trees, telephone polls, etc. She states that she falls all of the time as well. Examination of this patient was stopped midway assessment. While assessing the patient's cervical AROM patient started swaying, eyes were blinking rapidly, she was unresponsive and body was flailing. At this time I stopped assessment as she was unresponsive, this was not a typical vertigo or vestibular response and PT/further tx or assessment was deemed inappropriate and contraindicated. When I stated that I would call an ambulance the patient came to. She started to become emotional at this point stating that her neurologist thinks it is all in her head/that she is faking it and that no one listens to her. I repeatedly told her speak with her doctor about her concerns and I could also call an ambulance for assessment at the ER as her symptoms were not something I could help her with. 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 At this time she is not demonstrating characteristics of BPPV and I would recommend she follow up with referring physician about her next steps of care. Electronically signed by: Demi Mcfarlane PT Please sign and return to therapist. Thank you for your referral.
== END 2024-08-01 07:53 | disposition home or self-care (01) ==
LOC: HO.PTCHIC 12:43
PROVIDERS: PCP Nurse Practitioner Family; Visit Provider Nurse Practitioner Family
DX: H81.10 Benign paroxysmal vertigo, unspecified ear (principal)
CPT/HCPCS: 97162

== ENCOUNTER → 2024-07-21 10:47 | Outpatient (BNV) | payer OTHER, SELFPAY | PROVIDERS: PCP Nurse Practitioner Family; Visit Provider Radiology Diagnostic Radiology | DX: R51.9 Headache, unspecified (principal); H93.A2 Pulsatile tinnitus, left ear | CPT/HCPCS: 70553 ==

== ENCOUNTER 2024-07-21 11:01 | Outpatient (REF) | payer OTHER, SELFPAY ==
--- NOTE | ~2024-07-21 | MR_ITS ---
EXAMINATION: MR BRAIN AND IAC PROTOCOL WITHOUT AND WITH CONTRAST CLINICAL INFORMATION: Headache. Pulsatile tinnitus. COMPARISON: August 31, 2022. TECHNIQUE: Multiplanar, multisequence MRI of the brain and IAC protocol was obtained before and after the intravenous administration of 5.0 mL gadolinium based (Gadavist) without reported immediate complications.. FINDINGS: Cochlear and vestibular components of the eighth cranial nerves demonstrated normal signal without enhancing lesion. The internal jugular bulbs are patent with normal anatomic location. No signal abnormality or enhancing lesion in the brainstem. The flow-void signal within the main vessels in the posterior cranial fossa is normal. The left anterior inferior cerebellar artery is type III. The right inferior cerebellar artery is type I. No restricted diffusion within the brain parenchyma. No acute intracranial hemorrhage, mass effect, midline shift, hydrocephalus or herniation. There is isointense T1 hyperintense FLAIR signal in the left mastoid air cells. Sellar/suprasellar region is normal. Craniocervical junction is intact and normal. Midline structures are normal. No gross abnormal enhancing lesion within the intra-axial or the extra-axial compartment. MR/MR head/brain wo/w con IMPRESSION: No vestibular schwannoma. Left anterior inferior cerebellar artery type III. No high-grade internal jugular bulb. Signal abnormality in the left mastoid air cells without enhancement, nonspecific. No acute stroke or acute brain abnormality. Electronically signed by: Will Greenberg MD 07/21/2024 12:45 PM [facility]
--- OUTSIDE RECORDS SUMMARY | 2024-07-21 12:11 | XMS_ITS | Clinical Summary ---
Author Organization [facility] ity Address [address] [place] [address] Care Team Providers Care Lead Sharepoint Developer Name Role Phone Unavailable Primary Care Provider Unavailabl e Social History Tobacco Use Types Packs/Day Years Used Date Smoking Tobacco: Never Assessed Comments Unknown Sex and Gender Information Value Date Recorded Sex Assigned at Not on file Legal Sex Female 11:46 AM EST Gender Identity Not on file Sexual Orientation Not on file Plan of Treatment Health Maintenance Due Date Last Done Comments Breast Cancer Screening 1955 DTaP,Tdap,and Td Vaccines (1 - Tdap) 1961 Pneumococcal Vaccine: 50+ Ye ars (1 of 1 - PCV) 01/05/2004 Zoster Vaccines (1 of 2) 01/05/2004 COVID-19 Vaccine (1 - 2023-2 5 season) 2024 Influenza Vaccine (#1) 2024 RSV Immunization Patients 60 + Years Old (1 - 1-dose 75+ series) 2029 HIB Vaccines Aged Out No longer eligi ble based on patient's age to complete this topic HPV Vaccines Aged Out No longer eligi ble based on patient's age to complete this topic Hepatitis A Vaccines Aged Out No long er eligible based on patient's age to complete this topic Hepatitis B Vaccines Aged Out No long er eligible based on patient's age to complete this topic IPV Vaccines Aged Out No longer eligi ble based on patient's age to complete this topic MMR Vaccines Aged Out No longer eligi ble based on patient's age to complete this topic Meningococcal ACWY Vaccine Aged Out N o longer eligible based on patient's age to complete this topic Meningococcal B Vacine Aged Out No lo nger eligible based on patient's age to complete this topic RSV Immunization Patients Un harry 20 months Aged Out No longer eligible b ased on patient's age to complete this topic Varicella Vaccines Aged Out No longer eligible based on patient's age to complete this topic
--- OUTSIDE RECORDS SUMMARY | 2024-07-21 12:11 | XMS_ITS | Patient Health Record ---
Author Organization [facility] [employer] [facility] Address [address] [place] [address] Care Team Providers Care Racecar Driver Name Role Phone Case Duff Primary Care Provider Sebastien Byrnes Unavailable [phone] Allergies Allergen (clinical drug ingredient) Drug/Non Drug Allergy documented on EMR Reaction Allergy Type Onset Date Status sulfamethoxazole / trimethoprim Bactrim Unknown Drug Allergy Active carbamazepine Carbamazepine Unknown Drug Allergy Active valproate Depakote Unknown Drug Allergy Active Diflunisal Unknown Drug Allergy Active phenytoin Dilantin Unknown Drug Allergy Active erythromycin Erythromycin Unknown Drug Allergy A ctive hydrochlorothiazide Hydrochlorothiazide Unknown Drug Aller gy Active lisinopril Lisinopril Unknown Drug Allergy Activ e penicillamine Penicillamine Unknown Drug Allergy Active piroxicam Piroxicam Unknown Drug Allergy Active sulfacetamide Sulfacetamide Sodium Unknown Drug Allergy Active trimethoprim Trimethoprim Unknown Drug Allergy A ctive Reason For Referral No Information Medications Medication SIG (Take, Route, Frequency, Duration) Notes Start Date End Date Status Anbesol 10 % 1 application as nee ded Mouth/Throat Four times a day Active Melatonin 5 MG 1 tablet in the even ing Orally Once a day for 30 day(s) Active Albuterol Sulfate HFA 108 (90 Base) MCG/ACT 1 puff as needed Inhalation every 4 hrs Active Levothyroxine Sodium 25 MCG 1 tablet in the morning on an empty stomach Orally Once a day for 30 day(s) Active Atorvastatin Calcium 40 MG 1 tablet Oral ly Once a day for 30 day(s) Active Singulair 10 MG 1 tablet Orally Once a day for 30 day(s) Active Aspir-81 Active Milk of Magnesia 400 MG/5ML 5 ml at leas t 4 hours between doses as needed Orally Four times a day Active Fleet Enema 7-19 GM/118ML as directed Rectal Active Vitamin D3 25 MCG (1000 UT) 1 capsule Or ally Once a day for 30 day(s) Active Colace 100 MG 1 capsule as needed Orally Once a day for 30 day(s) Active Topiramate 50 MG 1 tablet Orally BID Active Fluoxetine 10 MG 1 capsule Orally Onc e a day for 30 day(s) Active Flonase Allergy Relief 50 MCG/ACT 1 spray in each nostril Nasally Once a day for 30 day(s) Active Fludrocortisone Acetate 0.1 MG as directed Orally Active Advair Diskus 250-50 MCG/DOSE as directed Inhalation 01/22/2020 Activ e KlonoPIN 0.5 MG 1 tablet at bedtime Orally Once a day Active Acetaminophen 325 MG 1 tablet as needed Orally every 4 hrs 01/22/2020 Active Ipratropium [place] HFA 17 MCG/ACT 2 puffs Inhalation Four times a day Active Social History Tobacco Use: Social History Observation Description Date Details (start date - stop date) Never Smoker NA - NA Tobacco Use/Smoking Question Answer Notes Are you a nonsmoker Tobacco use other than smoking: Question Answer Notes Are you an other tobacco user? 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 Problem Seizure disorder (878935725) Seizure disorder (G40.909) Active confirmed Problem Sleep disturbance (84962273) Sleep disturbance, unspecified (G47.9) Active confirmed Plan Of Treatment No Information Insurance Providers Payer Name Payer Address Payer Phone Subscriber Number Group Number Insured Name Patient Relationship to Insured Coverage Start Date Coverage End Date [facility] [address] [place] [address] [id number] Sarahy Neves Self - patient is the insured MEDICARE [address] [place], [place] [id number] Sarahy Neves Self - patient is the insured 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
--- OUTSIDE RECORDS SUMMARY | 2024-07-21 12:11 | XMS_ITS | Data Portability ---
Author Organization [employer], [employer] Address [address] [place] [id number] Care Team Providers Care Icu Nurse Name Role Phone HIM CCA OTHER Assessment [...] Assessment and Plan as documented by the Professional Bass Fisherman. Patient given the opportunity to ask questions. Advised needs close follow-up with PCP however-if not improving she may call for another visit with us and if develops CP/severe SOB/turning blue/uncontrolle d n/v/d or black/bloody emesis or stool/ AMS/ syncope/ hi fever to call 911- she verbalized understanding of instructions to me [email or web address] Not available 02/16/2023 13:22:13 06/29/2023 06/29/2023 I have reviewed and agree with the Assessment and Plan as documented by the Professional Bass Fisherman. I provided real-time medical direction via phone for this encounter, and was available for additional phone based assistance as needed. I have reviewed and agree with the Assessment and Plan as documented by the Professional Bass Fisherman. I provided real-time medical direction via phone [...] 2021 022 [email or web address] 5 [facility], [address] [place] [address], [phone], 2 16:18:02 rapid flu (A+B) 2021 022 [email or web address] 5 [facility], [address] [place] [address], [phone], 2 16:18:02 rapid strep group A, throat 2021 022 [email or web address] 5 [facility], [address] [place] [address], [phone], 2 16:18:02 rapid SARS CoV 2 Ag, QL IA, respiratory specimen 2022 023 [email or web address] 0 [facility], [address] [place] [address], [phone], 3 15:01:01 rapid flu (A+B) 2022 023 [email or web address] 0 [facility], [address] [place] [address], [phone], 3 15:01:01 Referral None recorded. Procedures None recorded. Surgeries None recorded. Imaging None recorded. Medication Orders albuterol sulfate 2.5 mg/3 mL (0.083 %) solution for nebulizatio n 2022 023 [email or web address] 0 Not available 3 15:04:06 albuterol sulfate 2.5 mg/3 mL (0.083 %) solution for nebulizatio n 2022 023 [id number], [address] [place], [place], [phone], 3 15:04:13 prednisone 20 mg tablet 2022 023 [email or web address] 0 Not available 3 15:04:06 prednisone 20 mg tablet 2022 023 [facility] #[id number], [address] [place], [place], [id number], 3 15:04:14 Patient TargetsNo targets recorded. Patient InstructionsNo instructions recorded. Reason for Referral None Reported. Results Created Date Observation Date Name Description Value Unit Range Abnormal Flag Note LastModifiedBy Organization Detail LastModifiedTime 04/27/20 22 04/27/2022 rapid strep group A, throa t Strep negati ve Not Available [facility] [address] [place] [address], [address], 04/27/2022 16:17:34 04/27/20 22 04/27/2022 rapid flu (A+B) Flu negati ve Not Available [facility] [address] [place] [address], [address], 04/27/2022 16:17:30 04/27/20 22 04/27/2022 rapid SARS CoV 2 Ag, QL IA, respi rator y speci men rapid SARS CoV 2 Ag, QL IA, respiratory specimen negati ve Not Available [facility] [address] [place] [address], [phone], 04/27/2022 16:17:26 02/16/20 23 02/15/2023 rapid flu (A+B) Flu negati ve Not Available [facility] [address] [place] [address], [phone], 02/15/2023 15:00:42 02/16/20 23 02/15/2023 rapid SARS CoV 2 Ag, QL IA, respi rator y speci men rapid SARS CoV 2 Ag, QL IA, respiratory specimen negati ve Not Available Main - [facility] ed [address] [place] [address], [place], [address], 02/15/2023 15:00:34 Result Notes None recorded. Medical Equipment None Reported. Allergies Allergen ID Allergen Name Allergen Category Reaction Reaction Severity Criticality Documentation Date Start Date Code Code System Note Provider Name and Address Organization Details Recorded Time 3231 Depakene medicatio n Not available Not available Not available 02/16/2023 5 RxNorm Chasity Mark MD [address] [place] [address],[address], [place], [address], [place] [facility] 13:18:24 3233 Dilantin medicatio n Not available Not available Not available 02/16/2023 0 RxNorm Chasity Mark MD [address] [place] [address],[address], [place], [address], [place] [facility] 13:18:32 3234 Tegretol medicatio n Not available Not available Not available 02/16/2023 9 RxNorm Chasity Mark MD [address] [place] [address],[address], [place], [address], [place] [facility] 13:18:53 3235 erythromy akhil medicatio n Not available Not available Not available 02/16/2023 4053 RxNorm and ilosi ne Chasity Mark MD [address] [place] [address],[address], [place], [address], [place] [facility] 13:19:12 3236 Feldene medicatio n Not available Not available Not available 02/16/2023 8 RxNorm Chasity Mark MD [address] [place] [address],[address], [place], [address], [place] [facility] 13:19:27 3237 Dolobid medicatio n Not available Not available Not available 02/16/2023 86428 6 RxNorm Chasity Mark MD [address] [place] [address],[address], [place], [address], [facility] 3 13:19:35 3238 Substance with sulfonami de structure and antibacte rial mechanism of action (substanc e) medicatio n Not available Not available Not available 02/16/2023 85580 8003 SNOMED Chasity Mark MD [address] [place] [address],[address], [place], [address], [facility] 3 13:19:43 3239 Product containin g penicilli n and antibioti c (product) medicatio n Not available Not available Not available 02/16/2023 19324 05 SNOMED Not Available [facility] - [facility] 4 03:34:14 3240 codeine medicatio n Not available Not available Not available 02/16/2023 2670 RxNorm Chasity Mark MD [address] [place] [address],[address], [place], [address], [facility] 3 13:20:02 3241 lisinopri l medicatio n Not available Not available Not available 02/16/2023 52526 RxNorm She was on lisin opril /hydr ochlo rothi azide and does not know which moiet y she had the react ion to Chasity Mark MD [address] [place] [address],[address], [place], [address], [employer] 3 13:20:49 3242 adhesive tape environme nt,medica tion Not available Not available Not available 02/16/2023 79773 UNK Chasity Mark MD [address] [place] [address],[address], [place], [address], [facility] 3 13:21:07 7004 Bactrim medicatio n Not available Not available Not available 04/08/2024 22210 9 RxNorm Not Available [facility] - production [...] Updated DateTime 4 98 % 98 % 90735.0 4 g 98.8 [degF] 78 /min 152.4 cm 18 /min 139 mm[Hg] 77 mm[Hg] Not Available [employer] [facility] - [facility] 4 11:54:32 Date Recorded Body temperature Oxygen saturation Oxygen saturation in Arterial blood by Pulse oximetry Respiratory rate Heart rate Systolic blood pressure Diastolic blood pressure Provider Name and Address Organization Details Last Updated DateTime 4 97.2 [degF] 96 % 96 % 16 /min 88 /min 127 mm[Hg] 75 mm[Hg] Not Available [employer] - production 4 13:32:36 Date Recorded Body temperature Oxygen [...] mm[Hg] 135 mm[Hg] 84 mm[Hg] Not Available [employer] 2 11:15:04 Social History None recorded. Functional [...] [id number] Ferny Harrison MD [facility] [address] [place] [phone] 04/27/2022 11:06:08 05/02/2022 09:06:31 Cough 80208338 R05.9 [id number] Chasity Mark MD [facility] [address] [place] [address] 02/15/2023 14:52:47 02/15/2023 23:29:56 Viral upper respiratory tract infection [id number] J06.9 Advised to increase p.o. hydration. rest [...] Advised to discuss further with her PCP [id number] Pa Garcia MD [facility] [address] [place] [phone] 06/29/2023 11:10:17 07/21/2023 13:44:47 Low back pain [id number] M54.50 [id number] Real Mojica MD [facility] [address] [place] [phone] 10/07/2023 13:32:33 10/07/2023 17:22:10 COVID-19 [id number] U07.1 This 68-year-ol d female with COPD [...] Dugan Member ID Guarantor Name 04/27/2022 1 [facility] - DOS PRIOR TO 2022 - DUAL ELIGIBLE (MEDICARE REPLACEMENT/ADV ANTAGE - HMO) Sarahy Neves [id number] Sarahy Neves 02/15/2023 1 [facility] - DOS ON OR AFTER 2022 - DUAL ELIGIBLE - LONG-TERM OPTIONS AND ONE CARE (MEDICARE REPLACEMENT/ADV ANTAGE - HMO) Sarahy Marianoluigi [id number] Sarahy Quijano Pura 06/29/2023 1 [facility] - DOS ON OR AFTER 2022 - DUAL ELIGIBLE - LONG-TERM OPTIONS AND ONE CARE (MEDICARE REPLACEMENT/ADV ANTAGE - HMO) Sarahy Marianoluigi [id number] Sarahy Quijano Pura 10/07/2023 1 [facility] - DOS ON OR AFTER 2022 - DUAL ELIGIBLE - LONG-TERM OPTIONS AND ONE CARE (MEDICARE REPLACEMENT/ADV ANTAGE - HMO) Sarahy Villatoro Pura [id number] Sarahy Quijano Humbertomatthew Notes Date Note Type Note Provider Name and Address Organization Details Recorded Time 04/27/2022 text/html HPI: Russr transferred to [facility] from [facility]. Mbr reports not feeling well since 04/23/22. 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 Mbr speaking full clear sentences with this senior grant writer during call, no signs of SOB, [...] ..................... ..................... ..................... ..................... ..................... ..................... ............... Professional Bass Fisherman Note: Pt presents awake and alert c/o sinus/right ear pressure, congestion, non productive cough, dyspnea with exertion, and fatigue x4 days. Pt denies f/n/v/d, cp, and dizziness. LS: clear/equal bilaterally. Covid, flu, strep neg. [facility] contacted. Pt educated on supportive care and when to go to the ED. ..................... ..................... ..................... ..................... ..................... ..................... ............... Disposition: Lisa Ferny Harrison MD [address], [place], [address], [employer] [facility] [employer] 04/27/2022 16:18:15 02/15/2023 text/html HPI: FRANC is a 68 y/o female with a PMH of asthma, hx thyroid CA, positional vertigo, migraines, seizure disorder, sleep walking disorder, anxiety, HTN, orthostatic hypotension, HLD, non-compliance with medical tx, and depression. RUSSR states that she saw her MD in December and ? h e heard wheezing in one of my lower lungs.? FRANC has been taking inhalers, which are not helping as much anymore. RUSSR states that her ? l ungs have been burning for a week? ; she has a dry, nonproductive cough; a runny nose; and weakness. RUSSR denies CP, fevers, wheezing, or radiating jaw/back pain. MBR states she is ? d rinking and peeing fine, but my appetite is terrible because I don? t feel well.? FRANC is speaking in partial sentences, has a raspy voice, and is ill-sounding. This CRU RN is unable to appreciate any wheezing or stridor during this assessment. FRANC is strongly advised to triage to ED via 911 for assessment and imaging for her symptoms, but she flatly refuses. RUSSR is requesting an in-home visit at this [...] to start with an in-home visit first. MBR? s address and phone number on file confirmed. FRANC can be reached at [phone]. ..................... ..................... ..................... ..................... ..................... ..................... ............... PSYCHIATRIC Nursing Assessment: Comments: SOB that started this morning. History of asthma. Taking prescribed inhalers as needed. Used inhaler x1 today. + cough, non-productive x2 days. Voice sounds hoarse. Runny nose. No known fevers. Denies body aches, chills, or sore throat. ..................... ..................... ..................... ..................... ..................... ..................... ............... Professional Bass Fisherman Note From Liban Jacob: PT complains of [...] or melena or hematochezia Chasity Mark MD [address] [facility],[address], [place], [address], [employer] 02/16/2023 13:25:30 06/29/2023 text/html HPI: Member calls [...] Rojo): Comments: HPI was reviewed by this senior grant writer - No further information needed at this time. Waqas AQUINO ..................... ..................... ..................... ..................... ..................... ..................... ............... Professional Bass Fisherman Note From Stacie Han: Sent to a [...] test: neg; 12 lead ECG: uploaded to [employer]. BP:139/77, P:78, RR:18, SpO2:98% RA, T:98.8; Head: sinus tenderness; Throat: erythema noted, no edema or exudate; Chest: bilateral chest tenderness; Lung sounds: clear bilaterally; Abdomen: soft, non-tender, no distention; Back: no tenderness; Extremities: unremarkable; Skin: pink, warm, dry; [facility] consulted and will request earlier follow up appt with PCP. [facility] orders Ketorolac 15mg IM. Ketorolac 15mg IM administered without incident. Red flags discussed. Pt has no further questions. ..................... ..................... ..................... ..................... ..................... ..................... ............... Disposition: Fulfilled Pa Garcia MD [address] [facility],[address], [place], [address], [facility] - [employer] 07/20/2023 08:46:37 10/07/2023 text/html HPI: mbr tested positive for covid on Sunday was prescribed paxlovid, states feeling worse with complaints of increased SOB/N/fever/chills/po or po intake, feeling dizzy lightheaded, and weak. requesting [facility] visit for evaluation Protocol Used: Cough - Acute Productive Protocol-Based Disposition: Consider MISTY Mcdaniel Community clinician, MD/CRM TECHNICAL LEAD triage, PCP, or Urgent Care Visit within [...] to process visit -MILES Mclaughlin MD [address] [facility],[address], [place], [address], [facility] - JONATHAN MCDANIEL 10/07/2023 13:37:29 OBGyn Episode No OBEpisode recorded.
[2024-07-21] MEDS: gadobutroL 7.5 ML VIAL IVPUSH (12:16)
== END 2024-07-21 11:02 | disposition home or self-care (01) ==
LOC: HO.MRI 11:01
PROVIDERS: PCP Nurse Practitioner Family; Visit Provider Nurse Practitioner Family
DX: H93.A3 Pulsatile tinnitus, bilateral (principal); R51.9 Headache, unspecified
CPT/HCPCS: 70553; A9585

== ENCOUNTER 2024-08-21 13:12 | Emergency (ER) | payer OTHER, SELFPAY ==
[2024-08-21 13:19] VITALS: BP 125/74; PULSE 80; O2SAT 100
[2024-08-21 13:41] VITALS: BP 119/57; PULSE 72; RESP 20; TEMP 36.5; O2SAT 99; BMI 22.5
--- NOTE | 2024-08-21 13:44 | ECG_ITS ---
Test Reason : FALL Blood Pressure : */* mmHG Vent. Rate : 69 BPM Atrial Rate : 69 BPM P-R Int : 168 ms QRS Dur : 74 ms QT Int : 392 ms P-R-T Axes : 73 33 44 degrees QTcB Int : 420 ms Normal sinus rhythm Normal ECG When compared with ECG of 16-Jan-2024 16:11, No significant change was found Referred By: Generic ED Physician Electronically Signed By: FREDA GARY
[2024-08-21 14:17] LABS: MANUAL DIFF FLAG NO
[2024-08-21 14:22] LABS: Basophils Absolute Auto 0.1 X10*3/uL (0.0-0.2); Basophils Percent Auto 1.3 % (0-2); Eosinophils Absolute Auto 0.3 X10*3/uL (0.0-0.4); Eosinophils Percent Auto 5.6 % (0-4); Hematocrit 39.7 % (37.0-47.0); Hemoglobin 12.8 g/dl (12.0-16.0); Imm Gran Abs Auto 0.03 X10*3/uL (0.00-0.03); Imm Gran Pct Auto 0.5 % (0.0-0.4); Lymphocytes Absolute Auto 1.3 X10*3/uL (1.2-4.9); Lymphocytes Percent Auto 21.4 % (20-40); Mean Corpuscular HGB Conc 32.2 g/dl (31.0-35.0); Mean Corpuscular Volume 93.2 fL (80.0-98.0); Mean Platelet Volume 10.2 fL (9.4-12.3); Monocytes Absolute Auto 0.6 X10*3/uL (0.1-1.2); Monocytes Percent Auto 9.5 % (2-11); Neutrophils Absolute Auto 3.8 x10*3/uL (2.0-8.3); Neutrophils Percent Auto 61.7 % (45-73); Platelet Count 271 X10*3/uL (160-400); Red Blood Count 4.26 X10*6/uL (4.20-5.50); Red Cell Distribution Width 14.1 % (11.0-16.0); White Blood Count 6.1 X10*3/uL (4.8-10.8)
[2024-08-21 14:34] VITALS: BP 119/71; PULSE 63; RESP 16; TEMP 36.3; O2SAT 99
[2024-08-21 14:34] LABS: Alanine Aminotransferase 28 U/L (0-31); Albumin Level 3.6 g/dL (3.5-5.0); Alkaline Phosphatase 80 U/L (39-117); Anion Gap 10 (12-20); Aspartate Amino Transferase 35 U/L (5-31); Bilirubin Total 0.2 mg/dL (0.0-1.0); Blood Urea Nitrogen 20 mg/dL (9-16); Calcium 8.8 mg/dL (8.4-10.2); Carbon Dioxide 23 mmol/L (22-29); Chloride 113 mmol/L (96-108); Creatinine Clr Calc Pharmacy 44.2; Estimated Glomerular Filt Rate > 60; Glucose Random 97 mg/dL (60-115); Potassium 4.9 mmol/L (3.3-5.1); Sodium 141 mmol/L (135-145); Total Protein 6.5 g/dL (6.5-8.0)
[2024-08-21 14:56] LABS: Appearance Urine Clear; Color Urine Dark Yellow; Glucose Urine UA Negative (Negative); Leukocyte Esterase Urine Negative (Negative); Nitrite Urine Negative (Negative); Urine Blood Negative (Negative); Urine Ketones Negative (Negative); Urine Protein Negative (Neg-Trace)
--- NOTE | 2024-08-21 16:45 | PC.NURSE ---
patient has been ambulating with steady gait and walker to and from bathroom
--- NOTE | 2024-08-21 16:51 | ED_ITS ---
HPI - Syncope General Chief Complaint: Syncope Stated Complaint: Fall Time Seen by Provider: 08/21/24 16:24 Source: patient Mode of arrival: EMS Limitations: no limitations History of Present Illness ED Provider: HPI narrative: Patient's history of hypertension depression conversion disorder apparently was at the store fell lightheaded and legs gave out and passed out no significant injury ambulatory in the ed no chest pain no palpitation no head injury Related Data Home Medications ?Medication ?Instructions ?Recorded ?Confirmed aspirin 81 mg tablet,delayed 81 mg PO DAILY 07/05/20 07/11/24 release (Adult Low Dose Aspirin) Previous Rx's ?Medication ?Instructions ?Recorded betamethasone dipropionate 0.05 % 1 appl topical DAILY skin 09/01/21 topical cream irritation 14 days #45 grams albuterol sulfate 2.5 mg/3 mL 2.5 mg (3 mL) inhalation QID PRN 02/09/22 (0.083 %) solution for nebulization shortness of breath or wheezing 90 days #180 mL [facility] unit #1 ea 10/30/22 fluticasone propionate 50 1 spray intranasal DAILY 90 days 08/31/23 mcg/actuation nasal #48 grams spray,suspension oxymetazoline 0.05 % nasal spray 2 spray intranasal Q12H PRN nasal 10/19/23 (Afrin (oxymetazoline)) congestion 3 days #15 mL fluticasone 250 mcg-salmeterol 50 1 ea inhalation BID 90 days #3 11/27/23 mcg/dose blistr powdr for inhalers inhalation (Wixela Inhub) ezetimibe 10 mg tablet 10 mg PO DAILY #90 tabs 01/25/24 bisacodyl 5 mg tablet,delayed 10 mg (2 x 5 mg) PO BEDTIME 2 days 03/11/24 release (Dulcolax (bisacodyl)) #4 tabs polyethylene glycol 3350 17 238 g PO ONCE colonoscopy prep 1 03/11/24 gram/dose oral powder (Miralax) day #238 grams albuterol sulfate 90 mcg/actuation 2 puff PO Q6H PRN for wheezing 04/14/24 aerosol inhaler #6.7 grams meclizine 25 mg tablet 25 mg PO DAILY PRN dizziness #20 05/04/24 tabs fludrocortisone 0.1 mg tablet 0.1 mg PO DAILY for blood pressure 05/12/24 90 days #90 tabs folic acid 800 mcg tablet 0.8 mg PO DAILY #90 tabs 05/12/24 levothyroxine 25 mcg tablet 25 mcg PO DAILY #90 tabs 05/12/24 cetirizine 10 mg tablet (All Day 10 mg PO DAILY PRN allergy 05/17/24 Allergy (cetirizine)) symptoms 30 days #30 tabs pseudoephedrine HCl 120 mg 120 mg PO Q12H 5 days #10 tabs 05/17/24 tablet,extended release cholecalciferol (vitamin D3) 50 50 mcg PO DAILY 90 days #90 caps 05/18/24 mcg (2,000 unit) capsule clonazepam 0.5 mg tablet 0.5 mg PO BID PRN 06/25/24 anxiety/agitation 60 days #120 tabs galcanezumab-gnlm 120 mg/mL 120 mg subcut ONCE 30 days #1 mL 06/25/24 subcutaneous pen injector (Emgality Pen) magnesium oxide 400 mg (241.3 mg 400 mg PO BEDTIME diarrhea 90 days 06/25/24 magnesium) tablet #90 tabs riboflavin (vitamin B2) 400 mg 400 mg PO DAILY 90 days #90 tabs 06/25/24 tablet sumatriptan succinate 100 mg tablet See Rx Instructions PO .COMPLEX 30 06/25/24 days #12 tabs topiramate 100 mg tablet 100 mg PO BID 90 days #180 tabs 06/25/24 atorvastatin 80 mg tablet 80 mg PO DAILY 90 days #90 tabs 07/07/24 fluoxetine 20 mg capsule 60 mg (3 x 20 mg) PO DAILY 90 days 07/07/24 #270 caps montelukast 10 mg tablet 10 mg PO DAILY 90 days #90 tabs 07/07/24 risedronate 35 mg tablet 35 mg PO QWEEK #4 tabs 07/29/24 Allergies Allergy/AdvReac Type Severity Reaction Status Date / Time Penicillins [PENICILLINS] Allergy Intermediate HIVES Verified 08/21/24 13:43 carbamazepine [From Tegretol] Allergy Mild HIVES Verified 08/21/24 13:43 diflunisal [From Dolobid] Allergy Mild HIVES Verified 08/21/24 13:43 erythromycin base Allergy Mild HIVES Verified 08/21/24 13:43 [From Edwin-Tab] phenytoin [From Dilantin] Allergy Mild RASH,HIVES Verified 08/21/24 13:43 piroxicam [From Feldene] Allergy Mild HIVES Verified 08/21/24 13:43 sulfamethoxazole Allergy Mild HIVES Verified 08/21/24 13:43 [From Bactrim] trimethoprim [From Bactrim] Allergy Mild HIVES Verified 08/21/24 13:43 valproic acid [From Depakene] Allergy Mild HIVES Verified 08/21/24 13:43 Depakene Allergy Unknown Rash Verified 08/21/24 13:43 hydrochlorothiazide Allergy Unknown rash Verified 08/21/24 13:43 [HYDROCHLOROTHIAZIDE] lisinopril [LISINOPRIL] Allergy Unknown rash Verified 08/21/24 13:43 codeine [Codeine] AdvReac Intermediate NAUSEA & Verified 08/21/24 13:43 VOMITING rash doxycycline AdvReac Stomach Verified 08/21/24 13:43 Upset ENVIRONMENTAL Allergy Intermediate ASTHMA,LOSES Uncoded 08/21/24 13:43 VOICE TAPE,PLASTIC Allergy Intermediate RASH Uncoded 08/21/24 13:43 surgical tape Allergy Unknown unknown Uncoded 08/21/24 13:43 Review of Systems 2 Review of Systems: Yes all other systems are reviewed and are negative PMFSH Past Medical History Medical History Anesthesia complication Liver lesion Ingrown toenail Elevated liver enzymes Concussion with loss of consciousness SOB (shortness of breath) Pain of both earlobes Dizziness New onset headache Otitis externa of both ears Acute effusion of right ear Dermatitis Myalgia Headache 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 COVID-19 Pre-syncope Dyspnea Chest pain Pneumonia Osteoporosis Screening for osteoporosis CKD (chronic kidney disease) Dyslipidemia Hypothyroid Hyperlipemia Ataxic gait Seizures Asthma Depression Conversion disorder HTN (hypertension) Muscle weakness Hypothyroid Conversion disorder with attacks or seizures, acute episode, with psychological stressor Surgical History H/O colonoscopy History of right knee surgery History of lobectomy of thyroid History of arthroscopy of right knee History of ankle surgery History of arthroscopy of left knee History of hysterectomy Family History Family History Father CVD (cardiovascular disease) Stomach ulcer Cardiac arrest H/O heart bypass surgery Mother History of heart attack CHF (congestive heart failure) Lung cancer Diabetes mellitus High cholesterol HTN (hypertension) Hypothyroidism Sister Lung cancer Substance use disorder Brother Colitis Sister No problems noted. Sister Obstetric pulmonary blood clot embolism, antepartum Paternal Aunt Mental health disorder Substance use disorder Maternal Grandmother Mental health disorder Family/Other Substance use disorder Social History Social History Household Members: Family Household Members Other:: brother, 2 cats Housing: House Alcohol intake: never Patient Tobacco Use Status: Never used Tobacco e-Cigarette/Vaping Use: Never Used Second Hand Smoke Exposure: No Advance Directives: No Advance Directives Information Provided: Yes Current occupational status: disabled Cognitive needs: No Hearing needs: No Vision needs: No Physical Exam 2 Vital Signs: Vital Signs: Last Vital Signs Temp 97.9 F 08/21/24 16:55 Pulse 94 08/21/24 16:55 Resp 18 08/21/24 16:55 BP 141/70 H 08/21/24 16:55 Pulse Ox 98 08/21/24 16:55 O2 Del Method Room Air 08/21/24 16:55 BMI result Body Mass Index 22.5 Appearance: Alert. Oriented X3. No acute distress. Eyes: no pallor or icterus ENT: Pharynx normal. Oral Mucosa moist Neck: Normal inspection. Neck supple. CVS: Normal heart rate and rhythm. Pulses normal. Respiratory: No respiratory distress. Equal air entry bilateral, no wheezing/rales/rhonchi Abdomen: Soft and nontender. Bowel sounds are present, no mass palpable, no CVA tenderness Skin: Skin warm and dry. Normal skin color. Normal skin turgor. Extremities: No lower extremity edema. No calf tenderness Neuro: Oriented X 3. No motor deficit. No sensory deficit.No cerebellar signs , cranial nerves II-XII intact Medical Decision Making Medical Decision Making [facility] Narrative: patient with vasovagal near-syncope episode with no significant injuries the status normal will discharge patient home labs are stable EKGs without acute finding orthostatics normal will discharge patient home Differential Diagnosis Differential Diagnoses: The differential diagnosis associated with the presentation includes vasovagal/weakness Lab Data [facility] Lab Attestation statement: I reviewed the patient's lab results. 08/21/24 14:10 08/21/24 14:10 Labs: Lab Results 08/21/24 08/21/24 Range/Units 14:10 14:45 WBC 6.1 (4.8-10.8) X10*3/uL RBC 4.26 (4.20-5.50) X10*6/uL Hgb 12.8 (12.0-16.0) g/dl Hct 39.7 (37.0-47.0) % MCV 93.2 (80.0-98.0) fL MCH 30.0 (27.0-33.0) pg MCHC 32.2 (31.0-35.0) g/dl RDW 14.1 (11.0-16.0) % Plt Count 271 (160-400) X10*3/uL MPV 10.2 (9.4-12.3) fL Immature Gran % (Auto) 0.5 H (0.0-0.4) % Neut % (Auto) 61.7 (45-73) % Lymph % (Auto) 21.4 (20-40) % [place] % (Auto) 9.5 (2-11) % Eos % (Auto) 5.6 H (0-4) % Baso % (Auto) 1.3 (0-2) % Lymph # (Auto) 1.3 (1.2-4.9) X10*3/uL [place] # (Auto) 0.6 (0.1-1.2) X10*3/uL Eos # (Auto) 0.3 (0.0-0.4) X10*3/uL Baso # (Auto) 0.1 (0.0-0.2) X10*3/uL Abs Immat Gran (auto) 0.03 (0.00-0.03) X10*3/uL Absolute Neuts (auto) 3.8 (2.0-8.3) x10*3/uL Absolute Nucleated RBC 0.000 (0.0-0.012) X10*3/uL Nucleated RBC % (auto) 0.0 (0.0-0.2) /100WBC Sodium 141 (135-145) mmol/L Potassium 4.9 D (3.3-5.1) mmol/L Chloride 113 H (96-108) mmol/L Carbon Dioxide 23 (22-29) mmol/L Anion Gap 10 L (12-20) BUN 20 H (9-16) mg/dL Creatinine 0.85 (0.5-1.4) mg/dL Estim Creat Clear Calc 44.2 Estimated GFR > 60 Random Glucose 97 (60-115) mg/dL Calcium 8.8 D (8.4-10.2) mg/dL Total Bilirubin 0.2 (0.0-1.0) mg/dL AST 35 H (5-31) U/L ALT 28 (0-31) U/L Alkaline Phosphatase 80 (39-117) U/L Total Protein 6.5 (6.5-8.0) g/dL Albumin 3.6 (3.5-5.0) g/dL Urine Color Dark Yellow Urine Appearance Clear Urine pH 6.0 (5.0-9.0) Ur Specific [place] 1.010 (1.005-1.025) Urine Protein Negative (Neg-Trace) mg/dL Urine Glucose (UA) Negative (Negative) mg/dL Urine Ketones Negative (Negative) mg/dL Urine Blood Negative (Negative) Urine Nitrite Negative (Negative) Ur Leukocyte Esterase Negative (Negative) Independent Interpretation I performed an independent interpretation of an: EKG Interpretation: normal sinus rhythm heart rate 69 beats per minute normal interval normal axis no acute STT wave changes no acute ischemia Discharge Plan Discharge Clinical Impression: Vasovagal near syncope Patient Disposition: Home, Self-Care Instructions: Near Syncope (ED) Additional Instructions: drink plenty of fluids care and cautions as advised follow with your PCP if any concerns Prescriptions: No Action (DME) [facility] unit See Rx Instructions .Route .MEDSUPPLY Qty: 1 0RF Rx Instructions: As directed fluticasone propionate 50 mcg/actuation spray,suspension 1 spray intranasal DAILY 90 Days Qty: 48 1RF Rx Instructions: administer into each nostril fluticasone propion-salmeterol [Wixela Inhub] 250-50 mcg/dose blister with device 1 ea inhalation BID 90 Days Qty: 3 4RF ezetimibe 10 mg tablet 10 mg PO DAILY Qty: 90 1RF albuterol sulfate 90 mcg/actuation HFA aerosol inhaler 2 puff PO Q6H PRN (Reason: for wheezing) Qty: 6.7 0RF meclizine 25 mg tablet 25 mg PO DAILY PRN (Reason: dizziness) Qty: 20 0RF levothyroxine 25 mcg tablet 25 mcg PO DAILY Qty: 90 1RF folic acid 800 mcg tablet 0.8 mg PO DAILY Qty: 90 1RF fludrocortisone 0.1 mg tablet 0.1 mg PO DAILY 90 Days Qty: 90 1RF cholecalciferol (vitamin D3) 50 mcg (2,000 unit) capsule 50 mcg PO DAILY 90 Days Qty: 90 1RF fluoxetine 20 mg capsule 60 mg PO DAILY 90 Days Qty: 270 1RF montelukast 10 mg tablet 10 mg PO DAILY 90 Days Qty: 90 1RF atorvastatin 80 mg tablet 80 mg PO DAILY 90 Days Qty: 90 1RF risedronate 35 mg tablet 35 mg PO QWEEK Qty: 4 4RF aspirin [Adult Low Dose Aspirin] 81 mg tablet,delayed release (DR/EC) 81 mg PO DAILY betamethasone dipropionate 0.05 % cream 1 appl topical DAILY 14 Days Qty: 45 0RF albuterol sulfate 2.5 mg /3 mL (0.083 %) solution for nebulization 2.5 mg inhalation QID PRN (Reason: shortness of breath or wheezing) 90 Days Qty: 180 0RF Rx Instructions: for neb oxymetazoline [Afrin (oxymetazoline)] 0.05 % spray,non-aerosol 2 spray intranasal Q12H PRN (Reason: nasal congestion) 3 Days Qty: 15 0RF bisacodyl [Dulcolax (bisacodyl)] 5 mg tablet,delayed release (DR/EC) 10 mg PO BEDTIME 2 Days Qty: 4 0RF polyethylene glycol 3350 [Miralax] 17 gram/dose powder 238 g PO ONCE 1 Days Qty: 238 0RF topiramate 100 mg tablet 100 mg PO BID 90 Days Qty: 180 1RF sumatriptan succinate 100 mg tablet See Rx Instructions PO .COMPLEX 30 Days Qty: 12 6RF Rx Instructions: take 1 tab at onset of headache; if no relief, may repeat 1 tab after at least 2 hrs; max = 2 tabs/24 hrs PO riboflavin (vitamin B2) 400 mg tablet 400 mg PO DAILY 90 Days Qty: 90 1RF magnesium oxide 400 mg (241.3 mg magnesium) tablet 400 mg PO BEDTIME 90 Days Qty: 90 1RF clonazepam 0.5 mg tablet 0.5 mg PO BID PRN (Reason: anxiety/agitation) 60 Days Qty: 120 1RF Emgality Pen 120 mg/mL pen injector 120 mg subcut ONCE 30 Days Qty: 1 6RF cetirizine [All Day Allergy (cetirizine)] 10 mg tablet 10 mg PO DAILY PRN (Reason: allergy symptoms) 30 Days Qty: 30 0RF pseudoephedrine HCl 120 mg tablet extended release 120 mg PO Q12H 5 Days Qty: 10 0RF Print Language: Chinese
[2024-08-21 16:54] VITALS: BP 141/70; BP 145/75; PULSE 72; PULSE 94
[2024-08-21 16:55] VITALS: BP 141/70; BP 151/83; PULSE 82; PULSE 94; RESP 18; TEMP 36.6; O2SAT 98
--- OUTSIDE RECORDS SUMMARY | 2024-08-21 17:36 | XMS_ITS | Data Portability ---
Author Organization [facility] Address [address] [place] [address] Care Team Providers Care File Machine Operator Name Role Phone HIM CCA OTHER Assessment [...] Assessment and Plan as documented by the Coordinator Of Evaluation. Patient given the opportunity to ask questions. Advised needs close follow-up with PCP however-if not improving she may call for another visit with us and if develops CP/severe SOB/turning blue/uncontrolle d n/v/d or black/bloody emesis or stool/ AMS/ syncope/ hi fever to call 911- she verbalized understanding of instructions to me [email or web address] Not available 02/16/2023 13:22:13 06/29/2023 06/29/2023 I have reviewed and agree with the Assessment and Plan as documented by the Coordinator Of Evaluation. I provided real-time medical direction via phone for this encounter, and was available for additional phone based assistance as needed. I have reviewed and agree with the Assessment and Plan as documented by the Coordinator Of Evaluation. I provided real-time medical direction via phone [...] 2022 023 [email or web address] 0 [facility], [address] [place] [address], [phone], 3 15:01:01 rapid flu (A+B) 2022 023 [email or web address] 0 [facility], [address] [place] [address], [address], 3 15:01:01 rapid SARS CoV 2 Ag, QL [place], respiratory specimen 2021 022 [email or web address] 5 [facility], [address] [place] [address], [address], 2 16:18:02 rapid flu (A+B) 2021 022 [email or web address] 5 [facility], [address] [place] [address], [address], 2 16:18:02 rapid strep group A, throat 2021 022 [email or web address] 5 [facility], [address] [place] [address], [phone], 2 16:18:02 Referral None recorded. Procedures None recorded. Surgeries None recorded. Imaging None recorded. Medication Orders albuterol sulfate 2.5 mg/3 mL (0.083 %) solution for nebulizatio n 2022 023 [email or web address] 0 Not available 3 15:04:06 albuterol sulfate 2.5 mg/3 mL (0.083 %) solution for nebulizatio n 2022 023 [id number], [address] [place], [place], [phone], 3 15:04:13 prednisone 20 mg tablet 2022 023 [email or web address] 0 Not available 3 15:04:06 prednisone 20 mg tablet 2022 023 [facility] #[id number], [address] [place], [place], [phone], 3 15:04:14 Patient TargetsNo targets recorded. Patient InstructionsNo instructions recorded. Reason for Referral None Reported. Results Created Date Observation Date Name Description Value Unit Range Abnormal Flag Note LastModifiedBy Organization Detail LastModifiedTime 04/27/20 22 04/27/2022 rapid strep group A, throa t Strep negati ve Not Available [facility] [address] [place] [address], [address], 04/27/2022 16:17:34 04/27/20 22 04/27/2022 rapid flu (A+B) Flu negati ve Not Available [facility] [address] [place] [address], [phone], 04/27/2022 16:17:30 04/27/20 22 04/27/2022 rapid SARS CoV 2 Ag, QL IA, respi rator y speci men rapid SARS CoV 2 Ag, QL IA, respiratory specimen negati ve Not Available [facility] [address] [place] [address], [address], 04/27/2022 16:17:26 02/16/20 23 02/15/2023 rapid flu (A+B) Flu negati ve Not Available [facility] [address] [place] [address], [address], 02/15/2023 15:00:42 02/16/20 23 02/15/2023 rapid SARS CoV 2 Ag, QL IA, respi rator y speci men rapid SARS CoV 2 Ag, QL IA, respiratory specimen negati ve Not Available Main - [facility] ed [address] [place] [address], [place], [address], 02/15/2023 15:00:34 Result Notes None recorded. Medical Equipment None Reported. Allergies Allergen ID Allergen Name Allergen Category Reaction Reaction Severity Criticality Documentation Date Start Date Code Code System Note Provider Name and Address Organization Details Recorded Time 3231 Depakene medicatio n Not available Not available Not available 02/16/2023 5 RxNorm Chasity Mark MD [address] [place] [address],[address], [place], [address], [place] [facility] 13:18:24 3233 Dilantin medicatio n Not available Not available Not available 02/16/2023 0 RxNorm Chasity Mark MD [address] [place] [address],[address], [place], [address], [place] [facility] 13:18:32 3234 Tegretol medicatio n Not available Not available Not available 02/16/2023 9 RxNorm Chasity Mark MD [address] [place] [address],[address], [place], [address], [place] [facility] 13:18:53 3235 erythromy akhil medicatio n Not available Not available Not available 02/16/2023 4053 RxNorm and ilosi ne Chasity Mark MD [address] [place] [address],[address], [place], [address], [place] [facility] 13:19:12 3236 Feldene medicatio n Not available Not available Not available 02/16/2023 8 RxNorm Chasity Mark MD [address] [place] [address],[address], [place], [address], [place] [facility] 13:19:27 3237 Dolobid medicatio n Not available Not available Not available 02/16/2023 47327 6 RxNorm Chasity Mark MD [address] [place] [address],[address], [place], [address], [facility] 3 13:19:35 3238 Substance with sulfonami de structure and antibacte rial mechanism of action (substanc e) medicatio n Not available Not available Not available 02/16/2023 14466 8003 SNOMED Chasity Mark MD [address] [place] [address],[address], [place], [address], [facility] 3 13:19:43 3239 Product containin g penicilli n (product) medicatio n Not available Not available Not available 02/16/2023 14231 8001 SNOMED Not Available [facility] 4 03:34:14 3240 codeine medicatio n Not available Not available Not available 02/16/2023 2670 RxNorm Chasity Mark MD [address] [place] [address],[address], [place], [address], [facility] 3 13:20:02 3241 lisinopri l medicatio n Not available Not available Not available 02/16/2023 71657 RxNorm She was on lisin opril /hydr ochlo rothi azide and does not know which moiet y she had the react ion to Chasity Mark MD [address] [place] [address],[address], [place], [address], [facility] 3 13:20:49 3242 adhesive tape environme nt,medica tion Not available Not available Not available 02/16/2023 74736 UNK Chasity Mark MD [address] [place] [address],[address], [place], [address], [facility] 3 13:21:07 7004 Bactrim medicatio n Not available Not available Not available 04/08/2024 76292 9 RxNorm Not Available [facility] - production [...] Updated DateTime 4 98 % 98 % 18188.0 4 g 98.8 [degF] 78 /min 152.4 cm 18 /min 139 mm[Hg] 77 mm[Hg] Not Available 24/7 [facility] - [facility] 4 11:54:32 Date Recorded Body temperature Oxygen saturation Oxygen saturation in Arterial blood by Pulse oximetry Respiratory rate Heart rate Systolic blood pressure Diastolic blood pressure Provider Name and Address Organization Details Last Updated DateTime 4 97.2 [degF] 96 % 96 % 16 /min 88 /min 127 mm[Hg] 75 mm[Hg] Not Available 24/7 [facility] 4 13:32:36 Date Recorded Body [...] mm[Hg] 135 mm[Hg] 84 mm[Hg] Not Available 24/7 [facility] 2 11:15:04 Social History None recorded. Functional [...] [id number] Ferny Harrison MD [facility] [address] [place] [address] 04/27/2022 11:06:08 05/02/2022 09:06:31 Cough 96912725 R05.9 [id number] Chasity Mark MD [facility] [address] [place] [address] 02/15/2023 14:52:47 02/15/2023 23:29:56 Viral upper respiratory tract infection [id number] J06.9 Advised to increase p.o. hydration. rest [...] Advised to discuss further with her PCP [id number] Pa Garcia MD [facility] [address] [place] [address] 06/29/2023 11:10:17 07/21/2023 13:44:47 Low back pain 928460912 M54.50 23093 Real Mojica MD [facility] [address] [place] [address] 10/07/2023 13:32:33 10/07/2023 17:22:10 COVID-19 [id number] U07.1 This 68-year-ol d female with COPD [...] Dugan Member ID Guarantor Name 04/27/2022 1 [facility] - DOS PRIOR TO 2022 - DUAL ELIGIBLE (MEDICARE REPLACEMENT/ADV ANTAGE - HMO) Sarahy Neves [id number] Sarahy Neves 02/15/2023 1 [facility] - DOS ON OR AFTER 2022 - DUAL ELIGIBLE - [facility] OPTIONS AND ONE CARE (MEDICARE REPLACEMENT/ADV ANTAGE - HMO) Sarahy Marianoluigi [id number] Sarahy Quijano Humbertoblaiseluigi 06/29/2023 1 [facility] - DOS ON OR AFTER 2022 - DUAL ELIGIBLE - [facility] OPTIONS AND ONE CARE (MEDICARE REPLACEMENT/ADV ANTAGE - HMO) Sarahy Marianoluigi [id number] Sarahy Marianoluigi 10/07/2023 1 [facility] - DOS ON OR AFTER 2022 - DUAL ELIGIBLE - [facility] OPTIONS AND ONE CARE (MEDICARE REPLACEMENT/ADV ANTAGE - HMO) Sarahy Villatoro Pura [id number] Sarahy Quijano Humbertomatthew Notes Date Note Type Note Provider Name and Address Organization Details Recorded Time 04/27/2022 text/html HPI: Russr transferred to [facility] from [facility]. 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 Mbr speaking full clear sentences with this contract writer during call, no signs of SOB, [...] ..................... ..................... ..................... ..................... ..................... ..................... ............... Coordinator Of Evaluation Note: Pt presents awake and alert c/o sinus/right ear pressure, congestion, non productive cough, dyspnea with exertion, and fatigue x4 days. Pt denies f/n/v/d, cp, and dizziness. LS: clear/equal bilaterally. Covid, flu, strep neg. [facility] contacted. Pt educated on supportive care and when to go to the ED. ..................... ..................... ..................... ..................... ..................... ..................... ............... Disposition: Lisa Ferny Harrison MD [address] [facility], [place], [address], [employer] [facility] [employer] 04/27/2022 16:18:15 02/15/2023 text/html HPI: FRANC is [...] jaw/back pain. RUSSR states she is ? d rinking and [...] file confirmed. FRANC can be reached at [phone]. ..................... ..................... ..................... ..................... ..................... ..................... ............... [facility] Nursing Assessment: Comments: SOB that started this morning. History of asthma. Taking prescribed inhalers as needed. Used inhaler x1 today. + cough, non-productive x2 days. Voice sounds hoarse. Runny nose. No known fevers. Denies body aches, chills, or sore throat. ..................... ..................... ..................... ..................... ..................... ..................... ............... Coordinator Of Evaluation Note From Liban Jacob: PT complains of [...] inhaler 4 x daily with no improvement. MD contacted and advised to administer 40 MG [...] melena or hematochezia Chasity Mark MD [address] [facility], [place], [address], [facility] 02/16/2023 13:25:30 06/29/2023 text/html HPI: Member calls [...] Rojo): Comments: HPI was reviewed by this contract writer - No further information needed at this time. Waqas AQUINO ..................... ..................... ..................... ..................... ..................... ..................... ............... Coordinator Of Evaluation Note From Stacie Han: Sent to a [...] test: neg; 12 lead ECG: uploaded to [employer]. BP:139/77, P:78, RR:18, SpO2:98% RA, T:98.8; Head: sinus tenderness; Throat: erythema noted, no edema or exudate; Chest: bilateral chest tenderness; Lung sounds: clear bilaterally; Abdomen: soft, non-tender, no distention; Back: no tenderness; Extremities: unremarkable; Skin: pink, warm, dry; [facility] consulted and will request earlier follow up appt with PCP. [facility] orders Ketorolac 15mg IM. Ketorolac 15mg IM administered without incident. Red flags discussed. Pt has no further questions. ..................... ..................... ..................... ..................... ..................... ..................... ............... Disposition: Fulfilled Pa Garcia MD [address] [facility], [place], [address], [facility] - [employer] 07/20/2023 08:46:37 10/07/2023 text/html HPI: mbr tested positive for covid on Sunday was prescribed paxlovid, states feeling worse with complaints of increased SOB/N/fever/chills/po or po intake, feeling dizzy lightheaded, and weak. requesting [facility] visit for evaluation Protocol Used: Cough - Acute Productive Protocol-Based Disposition: Consider MISTY Moe Community clinician, MD/POULTRY SLAUGHTERER triage, PCP, or Urgent Care Visit within [...] no further information needed to process visit -IMLES Mclaughlin MD [address] [facility], [place], [address], [facility] - [employer] Turbine[employer]ONATHAN LLAMAS 10/07/2023 13:37:29 OBGyn Episode No OBEpisode recorded.
--- OUTSIDE RECORDS SUMMARY | 2024-08-21 17:36 | XMS_ITS | Patient Health Record ---
Author Organization [facility] Address [address] [place] [address] Care Team Providers Care Clinical Partner Name Role Phone Case Duff Primary Care Provider Sebastien Byrnes Unavailable [phone] Allergies Allergen (clinical drug ingredient) Drug/Non Drug Allergy documented on EMR Reaction Allergy Type Onset Date Status Bactrim Unknown Drug Allergy Active carbamazepine Carbamazepine [...] Orally every 4 hrs 01/22/2020 Active Ipratropium [place] HFA 17 MCG/ACT 2 puffs Inhalation Four [...] convulsions (F44.5) Active confirmed Problem Seizure disorder (106388889) Seizure disorder (G40.909) Active confirmed Problem Sleep disturbance (92715503) Sleep disturbance, unspecified (G47.9) Active confirmed Plan Of Treatment No Information Insurance Providers Payer Name Payer Address Payer Phone Subscriber Number Group Number Insured Name Patient Relationship to Insured Coverage Start Date Coverage End Date [facility] [address] [place] [address] [id number] Sarahy Neves Self - patient is the insured MEDICARE [address] [facility] [place] [id number] [phone] [id number] Sarahy Neves Self - patient is the insured [facility] [address] [place] [address] [phone] [id number] Sarahy Neves Self - patient is the [...]
--- OUTSIDE RECORDS SUMMARY | 2024-08-21 17:36 | XMS_ITS | Clinical Summary ---
Author Organization [facility] ity Address [address] [place] [address] Care Team Providers Care Supervisor Labor Gang Name Role Phone Unavailable Primary Care Provider [...] 1954 DTaP,Tdap,and Td Vaccines (1 - Tdap) 1973 Pneumococcal Vaccine: 50+ Ye ars (1 of 1 - PCV) 01/05/2004 Zoster Vaccines (1 of 2) 01/05/2004 COVID-19 Vaccine ( - 2023-2 5 season) 2024 Influenza Vaccine [...]
== END 2024-08-21 17:28 | disposition home or self-care (01) ==
PROVIDERS: Emergency Provider Internal Medicine; PCP Nurse Practitioner Family
DX: R55 Syncope and collapse (principal); Z79.82 Long term (current) use of aspirin; Z79.899 Other long term (current) drug therapy
CPT/HCPCS: 36415; 80053; 81003; 85025; 93005; 99283; 99284

== ENCOUNTER → 2024-08-21 13:44 | Outpatient (BNV) | payer OTHER, SELFPAY | PROVIDERS: Emergency Provider Internal Medicine; PCP Nurse Practitioner Family; Visit Provider Internal Medicine | DX: R55 Syncope and collapse (principal); I10 Essential (primary) hypertension | CPT/HCPCS: 93010 ==

== ENCOUNTER 2024-10-30 15:14 | Outpatient (AMB) | payer OTHER, SELFPAY ==
--- OUTSIDE RECORDS SUMMARY | 2024-10-30 15:16 | XMS_ITS | Patient Health Record ---
Author Organization [facility] Address [address] [place] [address] Care Team Providers Care Sheet Rock Installation Helper Name Role Phone Case Duff Primary Care Provider Sebastien Byrnes Unavailable [phone] GABRIELLE BEDOLLA Unavailable [phone] Allergies Allergen (clinical drug ingredient) Drug/Non Drug [...] Orally every 4 hrs 01/22/2020 Active Ipratropium Capitola HFA 17 MCG/ACT 2 puffs Inhalation Four [...] convulsions (F44.5) Active confirmed Problem Seizure disorder (866437185) Seizure disorder (G40.909) Active confirmed Problem Sleep disturbance (23509609) Sleep disturbance, unspecified (G47.9) Active confirmed Encounters Encounter Location Date Provider Diagnosis [facility], [address] [phone] 09/02/2024 GABRIELLE BEDOLLA [facility], [address] [address] 09/29/2024 Sebastien Myrick Plan Of Treatment Next Appt Details Provider Name:Sebastien woodward, 11/20/2024 02:20:00 PM, [address] [place] [address], [place], [address], Insurance Providers Payer Name Payer Address Payer Phone Subscriber Number Group Number Insured Name Patient Relationship to Insured Coverage Start Date Coverage End Date [facility] [address] [place] [address] [phone] [id number] Sarahy Neves Self - patient is the insured MEDICARE [address] [place], [place] [id number] Sarahy Neves Self - patient is the insured [facility] [address] [place] [address] [phone] [id number] Sarahy Neves Self - patient is the [...]
[2024-10-30 15:18] VITALS: BP 132/70; PULSE 91; O2SAT 98; BMI 22.7
--- NOTE | 2024-10-30 15:18 | A.OFFPC_ITS ---
Vital Signs 10/30/24 15:18 Height 5 ft Weight 116 lb BMI 22.7 BP 132/70 Blood Pressure Location Rt brachial Position Sitting Pulse 91 Pulse Source Pulse Oximeter Pulse Oximetry (%) 98 Oxygen Delivery Method Room Air Intake Visit Reasons: HDF ~ Post hospital discharge FU Corporate Associate Attorney Required: No Accompanied by: Self / Same As Patient Allergies Penicillins [PENICILLINS] Allergy (Intermediate, Verified 10/30/24 15:19) HIVES carbamazepine [From Tegretol] Allergy (Mild, Verified 10/30/24 15:19) HIVES diflunisal [From Dolobid] Allergy (Mild, Verified 10/30/24 15:19) HIVES erythromycin base [From Edwin-Tab] Allergy (Mild, Verified 10/30/24 15:19) HIVES phenytoin [From Dilantin] Allergy (Mild, Verified 10/30/24 15:19) RASH,HIVES piroxicam [From Feldene] Allergy (Mild, Verified 10/30/24 15:19) HIVES sulfamethoxazole [From Bactrim] Allergy (Mild, Verified 10/30/24 15:19) HIVES trimethoprim [From Bactrim] Allergy (Mild, Verified 10/30/24 15:19) HIVES valproic acid [From Depakene] Allergy (Mild, Verified 10/30/24 15:19) HIVES Depakene Allergy (Unknown, Verified 10/30/24 15:19) Rash hydrochlorothiazide [HYDROCHLOROTHIAZIDE] Allergy (Unknown, Verified 10/30/24 15:19) rash lisinopril [LISINOPRIL] Allergy (Unknown, Verified 10/30/24 15:19) rash codeine [Codeine] Adverse Reaction (Intermediate, Verified 10/30/24 15:19) NAUSEA & VOMITING rash doxycycline Adverse Reaction (Verified 10/30/24 15:19) Stomach Upset ENVIRONMENTAL Allergy (Intermediate, Uncoded 08/21/24 13:43) ASTHMA,LOSES VOICE TAPE,PLASTIC Allergy (Intermediate, Uncoded 08/21/24 13:43) RASH surgical tape Allergy (Unknown, Uncoded 08/21/24 13:43) unknown Tobacco use date assessed: 10/30/24 Fall risk assessment: No Falls in past year Last assessed Fall Risk: 10/30/24 Dental Screening Dental Screen Date: 10/30/24 Did you have a dental visit in the last 12 months?: No Did you have a dental problem in the last 6 months where you did not have access to dental care?: No Was dental information given to patient?: Patient declined HPI HDF ~ Post hospital discharge FU HPI Details Chief Complaint Recurrent sudden falls without head injury. History of Present Illness The patient is a 69-year-old female presenting with recurrent sudden falls. These episodes have led to multiple hospital visits, with the most recent one in mid-august. During this fall, she did not report hitting her head and did not incur significant injuries. I dont think she was using her rolling walker. She has a medical history of conversion disorder and engages with a neurologist for management. An emergency room visit in mid-August reported stable vitals, insignificant traumatic findings, and benign electrocardiogram results. Blood work results did not reveal any acute issues. Social History - Mobility: Utilizes a rolling walker fo r ambulation presently. - Neurological Care: Currently under the care of a neurologist for conversion disorder management. Health Maintenance Review of Systems - Neurological: Reports instability when standing with eyes closed; denies loss of consciousness or head injury. -denies any cp, sob, dizziness, STEARNS, blur red vision Physical Exam General: Cooperative, healthy appearing, comfortable, no acute distress and well developed, using rolling walker Orientation: Patient oriented x3 Limitations: No limitations Head: Normal to inspection Ears: Hearing grossly normal bilaterally Nose: Normal external nose present Face and sinus: Normal facial exam Eyes: Appearance normal, both eyes and all related structures Neck: Normal visual inspection and Yes full ROM Respiratory: Normal respiratory effort and able to speak in complete sentences. Clear to auscultation bilaterally Cardiovascular: Regular rate and rhythm. Normal S1 and S2 GI: Normal to inspection. Soft to palpation and nontender Skin: No rashes or lesions noted Neuro: Patient oriented x3. During Romberg assessment, she was a little bit hyperactive, becoming somewhat unstable with eyes closed but able to correct herself. She is hyperreflexive, patellar reflexes noted. Extremities: Normal to inspection. Using a rolling walker doing well. Results - Tests: Electrocardiogram conducted, re sults benign. Plan Management will focus on mitigating fall risks by ensuring consistent use of the rolling walker. The conversion disorder should continue to be managed with her neurologist's oversight/psych. With stable recent diagnostics, no further immediate testing is necessary unless the patient's condition evolves (labs still encouraged to have drawn in the near future). Monitoring her neurological status and exploring balance therapy options could provide benefit. Discussion Notes I discussed with the patient the importance of using her rolling walker regularly to prevent falls. We went over the management of her conversion disorder and our reliance on her neurologist's input for any necessary therapy modifications. The results from her prior EKG were benign, reinforcing current care plans. We addressed the need for close observation of her balance and agreed upon the proposed measures. Patient Instructions - Use your rolling walker consistently. - Follow up with your neurologist as faith nned. - Monitor your balance and stand cautiou sly. - Seek medical advice if falls increase or new symptoms develop. [facility] Medical History (Updated 10/30/24 @ 16:46 by Case Duff, [facility]) Falls Anesthesia complication Liver lesion Ingrown toenail Elevated liver enzymes Concussion with loss of consciousness SOB (shortness of breath) Pain of both earlobes Dizziness New onset headache Otitis externa of both ears Acute effusion of right ear Dermatitis Myalgia Headache REM sleep behavior disorder Convulsion disorder COVID-19 Pre-syncope Dyspnea Chest pain Pneumonia Osteoporosis Screening for osteoporosis CKD (chronic kidney disease) Dyslipidemia Hypothyroid Hyperlipemia Ataxic gait Seizures Asthma Depression Conversion disorder HTN (hypertension) Muscle weakness Hypothyroid Conversion disorder with attacks or seizures, acute episode, with psychological stressor Surgical History H/O colonoscopy History of right knee surgery History of lobectomy of thyroid History of arthroscopy of right knee History of ankle surgery History of arthroscopy of left knee History of hysterectomy Family History Father CVD (cardiovascular disease) Stomach ulcer Cardiac arrest H/O heart bypass surgery Mother History of heart attack CHF (congestive heart failure) Lung cancer Diabetes mellitus High cholesterol HTN (hypertension) Hypothyroidism Sister Lung cancer Substance use disorder Brother Colitis Sister No problems noted. Sister Obstetric pulmonary blood clot embolism, antepartum Paternal Aunt Mental health disorder Substance use disorder Maternal Grandmother Mental health disorder Family/Other Substance use disorder Social History Household Members: Family Household Members Other:: brother, 2 cats Housing: House Alcohol intake: never Patient Tobacco Use Status: Never used Tobacco e-Cigarette/Vaping Use: Never Used Second Hand Smoke Exposure: No Current occupational status: disabled Cognitive needs: No Hearing needs: No Vision needs: No Questionnaire PHQ-9 Over the last 2 weeks, how often have you been bothered by any of the following problems? 57447 - PHQ-9 Billing: Patient declined-do not bill Source: Developed by Drs. Mirza Corona, Arnoldo Fowler and colleagues, with an educational liu from [employer]. Thrive Questionnaire Date Thrive assessed: 10/30/24 Currently or been in a relationship where the following occur: I choose not to answer THRIVE Score: 0 AUDIT C Alcohol Use Questionnaire (AUDIT-C) 1. How often do you have a drink containing alcohol?: Never 3. How often do you have six or more drinks on one occasion?: Never Total Score: 0 Score Reviewed/Action Taken: Yes KATHRINE-7 AMB Questionnaire KATHRINE-7 Date KATHRINE - 7 assessed: 10/30/24 (patient declined) Source: Developed by Drs. Mirza Corona, Jelena Walton, Arnoldo Gonzalez and colleagues, with an educational liu from [employer]. Physical exam (Primary Care) Vital Signs: Last Vital Signs Pulse 91 10/30/24 15:18 BP 132/70 10/30/24 15:18 Pulse Ox 98 10/30/24 15:18 Oxygen Delivery Method Room Air 10/30/24 15:18 BMI result Body Mass Index 22.7 Tobacco/Smoking Status: Tobacco use Status Tobacco use date assessed 10/30/24 10/30/24 15:22 Patient Tobacco Use Status Never used Tobacco 10/30/24 15:22 e-Cigarette/Vaping Use Never Used 10/30/24 15:22 Thrive Assessment: Date of Thrive Assessment Date Thrive assessed 10/30/24 10/30/24 15:22 Currently or been in a relationship where the following occur: I choose not to answer Coding Level of Care Code Est Pt Level 3 (97234) Diagnoses Conversion disorder F44.9 Falls W19.XXXA Assessment & Plan Assessment & Plan (1) Conversion disorder: Code(s): F44.9 - Dissociative and conversion disorder, unspecified Category: Medical (2) Falls: Code(s): W19.XXXA - Unspecified fall, initial encounter Category: Medical Plan .
== END 2024-10-30 16:56 | disposition home or self-care (01) ==
LOC: HO.HMCC 15:14
PROVIDERS: PCP Nurse Practitioner Family; Visit Provider Nurse Practitioner Family
DX: F44.9 Dissociative and conversion disorder, unspecified (principal); W19.XXXA Unspecified fall, initial encounter

== ENCOUNTER → 2024-10-30 15:14 | Outpatient (BNVA) | payer OTHER, SELFPAY | PROVIDERS: PCP Nurse Practitioner Family; Visit Provider Nurse Practitioner Family | DX: I10 Essential (primary) hypertension (principal); F44.9 Dissociative and conversion disorder, unspecified; Z91.81 History of falling | CPT/HCPCS: 96127; 99212 ==

== ENCOUNTER 2024-11-09 15:27 | Emergency (ER) | payer OTHER, SELFPAY ==
--- NOTE | ~2024-11-09 | CT_ITS ---
CLINICAL HISTORY: Fall, head trauma, posterior neck tenderness CT cervical spine without contrast Comparison: None Findings: Cervical alignment is maintained. Vertebral body height is maintained. No acute fracture in the cervical spine. Craniocervical junction is intact. Degenerative changes at the C5-6 level with moderate right and mild left neural foraminal stenosis. Minimal degenerative changes at C4-5 with no significant stenosis. Prevertebral soft tissues within normal limits. Left thyroid lobe is absent. Lung apices are clear. Minimal fluid in left mastoid air cells. IMPRESSION: 1. No acute findings. 2. Degenerative changes at C5-6 with moderate right and mild left neural foraminal stenosis. This document has been electronically signed by: Sonia James MD on 11/09/2024 16:59:05
--- NOTE | ~2024-11-09 | CT_ITS ---
CLINICAL HISTORY: Fall, head trauma with LOC, on aspirin CT head without contrast Comparison: MR/IN/SR - MR HEAD/BRAIN WO/W CON - 07/21/24 11:21 EST Findings: No intra-axial mass, midline shift, hydrocephalus, or acute hemorrhage. No significant atrophy-like change or white matter disease. Mild fluid in left mastoid air cells and otherwise sinuses are clear. The orbits are within normal limits. There is no acute skull fracture. IMPRESSION: 1. No acute intracranial findings. This document has been electronically signed by: Sonia James MD on 11/09/2024 17:03:21
[2024-11-09 15:40] VITALS: BP 147/72; PULSE 88; O2SAT 97
--- NOTE | 2024-11-09 15:40 | ED.FALL ---
HPI - Fall General Chief Complaint: Fall Stated Complaint: fall, no memory of it, no thinners Time Seen by Provider: 11/09/24 15:40 Source: patient Mode of arrival: wheelchair Limitations: no limitations History of Present Illness ED Provider: Luis A Marx DO HPI Narrative: 69-year-old female with past medical history of vertigo, migraines, asthma, hypertension, hyperlipidemia, depression and hypothyroidism presents to the ED via EMS for a fall at home. Patient states she was in her normal state of health when she was taking up a weed and overcorrected when she stood up, causing her to fall backwards and strike the back of her head on the ground. She reports loss of consciousness and residual posterior headache and posterior neck pain since the fall. She states she is on baby aspirin daily. She denies prodromal symptoms or other symptoms today including dizziness, chest pain, difficulty breathing, abdominal pain, back pain, fevers, vomiting or diarrhea. Related Data Home Medications ?Medication ?Instructions ?Recorded ?Confirmed aspirin 81 mg tablet,delayed 81 mg PO DAILY 07/05/20 07/11/24 release (Adult Low Dose Aspirin) Previous Rx's ?Medication ?Instructions ?Recorded betamethasone dipropionate 0.05 % 1 appl topical DAILY skin 09/01/21 topical cream irritation 14 days #45 grams albuterol sulfate 2.5 mg/3 mL 2.5 mg (3 mL) inhalation QID PRN 02/09/22 (0.083 %) solution for nebulization shortness of breath or wheezing 90 days #180 mL [facility] unit #1 ea 10/30/22 oxymetazoline 0.05 % nasal spray 2 spray intranasal Q12H PRN nasal 10/19/23 (Afrin (oxymetazoline)) congestion 3 days #15 mL fluticasone 250 mcg-salmeterol 50 1 ea inhalation BID 90 days #3 11/27/23 mcg/dose blistr powdr for inhalers inhalation ([place]) ezetimibe 10 mg tablet 10 mg PO DAILY #90 tabs 01/25/24 albuterol sulfate 90 mcg/actuation 2 puff PO Q6H PRN for wheezing 04/14/24 aerosol inhaler #6.7 grams fludrocortisone 0.1 mg tablet 0.1 mg PO DAILY for blood pressure 05/12/24 90 days #90 tabs levothyroxine 25 mcg tablet 25 mcg PO DAILY #90 tabs 05/12/24 cetirizine 10 mg tablet (All Day 10 mg PO DAILY PRN allergy 05/17/24 Allergy (cetirizine)) symptoms 30 days #30 tabs cholecalciferol (vitamin D3) 50 50 mcg PO DAILY 90 days #90 caps 05/18/24 mcg (2,000 unit) capsule clonazepam 0.5 mg tablet 0.5 mg PO BID PRN 06/25/24 anxiety/agitation 60 days #120 tabs galcanezumab-gnlm 120 mg/mL 120 mg subcut ONCE 30 days #1 mL 06/25/24 subcutaneous pen injector (Emgality Pen) magnesium oxide 400 mg (241.3 mg 400 mg PO BEDTIME diarrhea 90 days 06/25/24 magnesium) tablet #90 tabs riboflavin (vitamin B2) 400 mg 400 mg PO DAILY 90 days #90 tabs 06/25/24 tablet sumatriptan succinate 100 mg tablet See Rx Instructions PO .COMPLEX 30 06/25/24 days #12 tabs topiramate 100 mg tablet 100 mg PO BID 90 days #180 tabs 06/25/24 fluoxetine 20 mg capsule 60 mg (3 x 20 mg) PO DAILY 90 days 07/07/24 #270 caps montelukast 10 mg tablet 10 mg PO DAILY 90 days #90 tabs 07/07/24 risedronate 35 mg tablet 35 mg PO QWEEK #4 tabs 07/29/24 folic acid 800 mcg tablet 0.8 mg PO DAILY #90 tabs 09/11/24 meclizine 25 mg tablet 25 mg PO DAILY PRN dizziness #20 09/13/24 tabs fluticasone propionate 50 1 spray intranasal DAILY 90 days 10/18/24 mcg/actuation nasal #48 grams spray,suspension atorvastatin 80 mg tablet 80 mg PO DAILY 90 days #90 tabs 10/30/24 Allergies Allergy/AdvReac Type Severity Reaction Status Date / Time Penicillins [PENICILLINS] Allergy Intermediate HIVES Verified 11/09/24 15:45 carbamazepine [From Tegretol] Allergy Mild HIVES Verified 11/09/24 15:45 diflunisal [From Dolobid] Allergy Mild HIVES Verified 11/09/24 15:45 erythromycin base Allergy Mild HIVES Verified 11/09/24 15:45 [From Edwin-Tab] phenytoin [From Dilantin] Allergy Mild RASH,HIVES Verified 11/09/24 15:45 piroxicam [From Feldene] Allergy Mild HIVES Verified 11/09/24 15:45 sulfamethoxazole Allergy Mild HIVES Verified 11/09/24 15:45 [From Bactrim] trimethoprim [From Bactrim] Allergy Mild HIVES Verified 11/09/24 15:45 valproic acid [From Depakene] Allergy Mild HIVES Verified 11/09/24 15:45 Depakene Allergy Unknown Rash Verified 11/09/24 15:45 hydrochlorothiazide Allergy Unknown rash Verified 11/09/24 15:45 [HYDROCHLOROTHIAZIDE] lisinopril [LISINOPRIL] Allergy Unknown rash Verified 11/09/24 15:45 codeine [Codeine] AdvReac Intermediate NAUSEA & Verified 11/09/24 15:45 VOMITING rash doxycycline AdvReac Stomach Verified 11/09/24 15:45 Upset ENVIRONMENTAL Allergy Intermediate ASTHMA,LOSES Uncoded 11/09/24 15:45 VOICE TAPE,PLASTIC Allergy Intermediate RASH Uncoded 11/09/24 15:45 surgical tape Allergy Unknown unknown Uncoded 11/09/24 15:45 Review of Systems Review of Systems: Yes all other systems are reviewed and are negative PMFSH Past Medical History Medical History (Updated 11/09/24 @ 17:47 by Luis A Marx DO) Falls Anesthesia complication Liver lesion Ingrown toenail Elevated liver enzymes Concussion with loss of consciousness SOB (shortness of breath) Pain of both earlobes Dizziness New onset headache Otitis externa of both ears Acute effusion of right ear Dermatitis Myalgia Headache REM sleep behavior disorder Convulsion disorder COVID-19 Pre-syncope Dyspnea Chest pain Pneumonia Osteoporosis Screening for osteoporosis CKD (chronic kidney disease) Dyslipidemia Hypothyroid Hyperlipemia Ataxic gait Seizures Asthma Depression Conversion disorder HTN (hypertension) Muscle weakness Hypothyroid Conversion disorder with attacks or seizures, acute episode, with psychological stressor Surgical History H/O colonoscopy History of right knee surgery History of lobectomy of thyroid History of arthroscopy of right knee History of ankle surgery History of arthroscopy of left knee History of hysterectomy Family History Family History Father CVD (cardiovascular disease) Stomach ulcer Cardiac arrest H/O heart bypass surgery Mother History of heart attack CHF (congestive heart failure) Lung cancer Diabetes mellitus High cholesterol HTN (hypertension) Hypothyroidism Sister Lung cancer Substance use disorder Brother Colitis Sister No problems noted. Sister Obstetric pulmonary blood clot embolism, antepartum Paternal Aunt Mental health disorder Substance use disorder Maternal Grandmother Mental health disorder Family/Other Substance use disorder Social History Social History Household Members: Family Household Members Other:: brother, 2 cats Housing: House Alcohol intake: never Patient Tobacco Use Status: Never used Tobacco Smoked in Last 30 Days: No e-Cigarette/Vaping Use: Never Used Second Hand Smoke Exposure: No Use of substances other than those prescribed or required for medical reasons: No Advance Directives: No Advance Directives Information Provided: Yes Current occupational status: disabled Cognitive needs: No Hearing needs: No Vision needs: No Physical Exam Vital Signs: Vital Signs: Last Vital Signs Temp 98.1 F 11/09/24 16:00 Pulse 68 11/09/24 16:00 Resp 16 11/09/24 16:00 BP 126/55 L 11/09/24 16:00 Pulse Ox 96 11/09/24 16:00 O2 Del Method Room Air 11/09/24 16:00 BMI result Body Mass Index 23.7 Constitutional: ?Alert, oriented, speaking in full sentences HEENT: ?Normocephalic, atraumatic. ?Moist mucous membranes Eyes: ?PERRL, EOMI Neck: ?Supple, diffuse posterior and right-sided paravertebral cervical spine tenderness Chest: ?No chest wall tenderness Respiratory: ?Lungs clear to auscultation, no increased work of breathing Cardio: ?Regular rate and rhythm, no murmur, 2+ radial and DP pulses symmetrically GI: ?Soft, nondistended, nontender Back: ?Normal range of motion, nontender Skin: ?No rash, no lesions Neuro: ?Alert and oriented to person, place and time, moves all 4 extremities, no focal deficits, cranial nerves 2-12 intact, normal strength and sensation of the bilateral upper and lower extremity Extremities: ?No swelling or tenderness, full range of motion Psych: ?Calm, alert and cooperative, appropriate behavior Medications Administered Discontinued Medications Generic Name Dose Route Start Last Admin Trade Name Freq PRN Reason Stop Dose Admin Acetaminophen 650 mg 11/09/24 15:49 11/09/24 17:13 Acetaminophen 325 Mg Tablet PO 11/09/24 15:50 650 mg ONCE ONE Administration Lidocaine 1 patch 11/09/24 17:14 11/09/24 17:17 Lidocaine 4 % Patch Adh..Patch TRANSDERMA 11/09/24 17:15 1 patch ONCE ONE Administration Protocol Ondansetron HCl 4 mg 11/09/24 17:14 11/09/24 17:17 Ondansetron Odt 4 Mg Tab.Rapdis TRANSLINGU 11/09/24 17:15 4 mg ONCE ONE Administration Medical Decision Making Medical Decision Making MDM Narrative: Patient presenting with a fall at home which does not appear to have an underlying etiology to the fall. Given her age on aspirin and loss of consciousness, CT imaging of the head was performed which showed no acute abnormality. CT imaging of the cervical spine was performed due to the tenderness but this is also negative for fracture. The patient was cleared from the cervical collar with right-sided cervical pain. I do not suspect ligamentous injury. She is able to range her neck. I did provide acetaminophen and lidocaine for her pain. On re-evaluation she is endorsing nausea and given ondansetron. Symptoms improved with antiemetic and analgesics. The patient was able to ambulate at baseline using a walker and feels safe and comfortable to return to home. The patient has no concerning exam findings that warrants further workup. She does have signs and symptoms consistent with a mild concussion with light sensitivity and persistent mild nausea, headache and mild dizziness. Provided concussion management and return precautions. Discharge Plan Discharge Clinical Impression: Concussion with loss of consciousness, Fall, Head injury due to trauma Patient Disposition: Home, Self-Care Instructions: Concussion (ED), Fall Prevention (ED), Head Injury (ED) Additional Instructions: CT imaging of your brain and neck were unremarkable. It appears that you have a concussion from striking her head. Please get plenty of rest, avoid any strenuous activity, standing or walking for long periods of time, or any other activities that worsen your symptoms. Please return if you have any new or concerning symptoms. Prescriptions: No Action (DME) [facility] unit See Rx Instructions .Route .MEDSUPPLY Qty: 1 0RF Rx Instructions: As directed fluticasone propion-salmeterol [Wixela Inhub] 250-50 mcg/dose blister with device 1 ea inhalation BID 90 Days Qty: 3 4RF ezetimibe 10 mg tablet 10 mg PO DAILY Qty: 90 1RF albuterol sulfate 90 mcg/actuation HFA aerosol inhaler 2 puff PO Q6H PRN (Reason: for wheezing) Qty: 6.7 0RF levothyroxine 25 mcg tablet 25 mcg PO DAILY Qty: 90 1RF fludrocortisone 0.1 mg tablet 0.1 mg PO DAILY 90 Days Qty: 90 1RF cholecalciferol (vitamin D3) 50 mcg (2,000 unit) capsule 50 mcg PO DAILY 90 Days Qty: 90 1RF fluoxetine 20 mg capsule 60 mg PO DAILY 90 Days Qty: 270 1RF montelukast 10 mg tablet 10 mg PO DAILY 90 Days Qty: 90 1RF risedronate 35 mg tablet 35 mg PO QWEEK Qty: 4 4RF folic acid 800 mcg tablet 0.8 mg PO DAILY Qty: 90 1RF meclizine 25 mg tablet 25 mg PO DAILY PRN (Reason: dizziness) Qty: 20 0RF fluticasone propionate 50 mcg/actuation spray,suspension 1 spray intranasal DAILY 90 Days Qty: 48 1RF Rx Instructions: administer into each nostril atorvastatin 80 mg tablet 80 mg PO DAILY 90 Days Qty: 90 1RF aspirin [Adult Low Dose Aspirin] 81 mg tablet,delayed release (DR/EC) 81 mg PO DAILY betamethasone dipropionate 0.05 % cream 1 appl topical DAILY 14 Days Qty: 45 0RF albuterol sulfate 2.5 mg /3 mL (0.083 %) solution for nebulization 2.5 mg inhalation QID PRN (Reason: shortness of breath or wheezing) 90 Days Qty: 180 0RF Rx Instructions: for neb oxymetazoline [Afrin (oxymetazoline)] 0.05 % spray,non-aerosol 2 spray intranasal Q12H PRN (Reason: nasal congestion) 3 Days Qty: 15 0RF topiramate 100 mg tablet 100 mg PO BID 90 Days Qty: 180 1RF sumatriptan succinate 100 mg tablet See Rx Instructions PO .COMPLEX 30 Days Qty: 12 6RF Rx Instructions: take 1 tab at onset of headache; if no relief, may repeat 1 tab after at least 2 hrs; max = 2 tabs/24 hrs PO riboflavin (vitamin B2) 400 mg tablet 400 mg PO DAILY 90 Days Qty: 90 1RF magnesium oxide 400 mg (241.3 mg magnesium) tablet 400 mg PO BEDTIME 90 Days Qty: 90 1RF clonazepam 0.5 mg tablet 0.5 mg PO BID PRN (Reason: anxiety/agitation) 60 Days Qty: 120 1RF Emgality Pen 120 mg/mL pen injector 120 mg subcut ONCE 30 Days Qty: 1 6RF cetirizine [All Day Allergy (cetirizine)] 10 mg tablet 10 mg PO DAILY PRN (Reason: allergy symptoms) 30 Days Qty: 30 0RF Print Language: Occitan
[2024-11-09 15:42] VITALS: BP 156/66; RESP 18; O2SAT 95; BMI 23.7
[2024-11-09 15:48] VITALS: TEMP 37.2
[2024-11-09 16:00] VITALS: BP 126/55; PULSE 68; RESP 16; TEMP 36.7; O2SAT 96
[2024-11-09] MEDS: Acetaminophen 325 MG TABLET 650 MG PO (17:13)
[2024-11-09] MEDS: Lidocaine 4 % Patch ADH..PATCH 1 PATCH TRANSDERMA (17:17)
[2024-11-09] MEDS: Ondansetron ODT 4 MG TAB.RAPDIS TRANSLINGU (17:17)
--- NOTE | 2024-11-09 17:40 | PC.NURSE ---
Patient able to ambulate safely with walker, aware
[2024-11-09 17:59] VITALS: BP 126/55; PULSE 68; RESP 16; TEMP 36.7; O2SAT 96
== END 2024-11-09 18:00 | disposition home or self-care (01) ==
PROVIDERS: Emergency Provider Emergency Medicine; PCP Nurse Practitioner Family
DX: S06.0X9A Concussion with loss of consciousness of unspecified duration, initial encounter (principal); W19.XXXA Unspecified fall, initial encounter; Y93.89 Activity, other specified; Y92.9 Unspecified place or not applicable; Y99.9 Unspecified external cause status
CPT/HCPCS: 70450; 72125; 99284

== ENCOUNTER → 2024-11-09 15:49 | Outpatient (BNV) | payer OTHER, SELFPAY | PROVIDERS: Emergency Provider Emergency Medicine; PCP Nurse Practitioner Family; Visit Provider Specialist | DX: M50.322 Other cervical disc degeneration at C5-C6 level (principal); S09.90XA Unspecified injury of head, initial encounter; W19.XXXA Unspecified fall, initial encounter; R51.9 Headache, unspecified; H93.A9 Pulsatile tinnitus, unspecified ear | CPT/HCPCS: 70450; 72125 ==

== ENCOUNTER 2024-11-25 09:53 | Day surgery (SDC) | payer OTHER, SELFPAY ==
--- OUTSIDE RECORDS SUMMARY | 2024-09-15 14:32 | XMS_ITS | Patient Health Record ---
Author Organization [facility] Address [address] [place] [address] Care Team Providers Care Paleobotanist Name Role Phone Case Duff Primary Care Provider Sebastien Byrnes Unavailable [phone] GABRIELLE BEDOLLA Unavailable [phone] Allergies Allergen (clinical drug ingredient) Drug/Non Drug [...] Orally every 4 hrs 01/22/2020 Active Ipratropium [place] HFA 17 MCG/ACT 2 puffs Inhalation Four [...] convulsions (F44.5) Active confirmed Problem Seizure disorder (378214704) Seizure disorder (G40.909) Active confirmed Problem Sleep disturbance (45300790) Sleep disturbance, unspecified (G47.9) Active confirmed Encounters Encounter Location Date Provider Diagnosis [facility], [address] [address] 09/02/2024 GABRIELLE BEDOLLA Plan Of Treatment No Information Insurance Providers Payer Name Payer Address Payer Phone Subscriber Number Group Number Insured Name Patient Relationship to Insured Coverage Start Date Coverage End Date [employer] [address] [place] [address] [id number] Sarahy Neves Self - patient is the insured MEDICARE [address] [facility] [place] [id number] Sarahy Neves Self - patient is the insured [facility] [address] [place] [phone] [id number] Sarahy Neves Self - patient is the [...]
--- OUTSIDE RECORDS SUMMARY | 2024-09-15 14:33 | XMS_ITS | Clinical Summary ---
Author Organization [facility] ity Address [address] [place] [address] Care Team Providers Care Border Guard Name Role Phone Unavailable Primary Care Provider [...] 2024 Influenza Vaccine (#1) 2024 RSV Immunization Adult Patie nts (1 - 1-dose 75+ series) 2029 HIB [...] age to complete this topic Meningococcal B Vaccine Aged Out No l onger eligible based on patient's age to complete this topic RSV Immunization Patients Un harry 20 months Aged Out No longer eligible b ased on patient's age to complete this topic Varicella Vaccines Aged Out No longer eligible based on patient's age to complete this topic
--- OUTSIDE RECORDS SUMMARY | 2024-09-15 14:33 | XMS_ITS | Data Portability ---
Author Organization [facility] [place] [facility] Address [address] [place] [phone] Care Team Providers Care Wanigan Clerk Name Role Phone HIM CCA OTHER Assessment [...] Assessment and Plan as documented by the Lean Six Sigma Black Belt. Patient given the opportunity to ask questions. Advised needs close follow-up with PCP however-if not improving she may call for another visit with us and if develops CP/severe SOB/turning blue/uncontrolle d n/v/d or black/bloody emesis or stool/ AMS/ syncope/ hi fever to call 911- she verbalized understanding of instructions to me [email or web address] Not available 02/16/2023 13:22:13 06/29/2023 06/29/2023 I have reviewed and agree with the Assessment and Plan as documented by the Lean Six Sigma Black Belt. I provided real-time medical direction via phone for this encounter, and was available for additional phone based assistance as needed. I have reviewed and agree with the Assessment and Plan as documented by the Lean Six Sigma Black Belt. I provided real-time medical direction via phone [...] 2022 023 [email or web address] 0 [facility], [address] [place] [address], [phone] 3 15:01:01 rapid flu (A+B) 2022 023 [email or web address] 0 [facility], [address] [place] [address], [phone] 3 15:01:01 rapid SARS CoV 2 Ag, QL IA, respiratory specimen 2021 022 [email or web address] 5 [facility], [address] [place] [address], [phone] 2 16:18:02 rapid flu (A+B) 2021 022 [email or web address] 5 [facility], [address] [place] [address], [phone] 2 16:18:02 rapid strep group A, throat 2021 022 [email or web address] 5 [facility], [address] [place] [address], [phone] 2 16:18:02 Referral None recorded. Procedures None recorded. Surgeries None recorded. Imaging None recorded. Medication Orders albuterol sulfate 2.5 mg/3 mL (0.083 %) solution for nebulizatio n 2022 023 [email or web address] 0 Not available 3 15:04:06 albuterol sulfate 2.5 mg/3 mL (0.083 %) solution for nebulizatio n 2022 023 [id number], [address], [place], [id number], 3 15:04:13 prednisone 20 mg tablet 2022 023 [email or web address] 0 Not available 3 15:04:06 prednisone 20 mg tablet 2022 023 [id number], [address], [place], [id number], 3 15:04:14 Patient TargetsNo targets recorded. Patient InstructionsNo instructions recorded. Reason for Referral None Reported. Results Created Date Observation Date Name Description Value Unit Range Abnormal Flag Note LastModifiedBy Organization Detail LastModifiedTime 04/27/20 22 04/27/2022 rapid strep group A, throa t Strep negati ve Not Available [facility] ed [address] [place] [address], [phone] 04/27/2022 16:17:34 04/27/20 22 04/27/2022 rapid flu (A+B) Flu negati ve Not Available [facility] ed [address] [place] [address], [phone] 04/27/2022 16:17:30 04/27/20 22 04/27/2022 rapid SARS CoV 2 Ag, QL IA, respi rator y speci men rapid SARS CoV 2 Ag, QL IA, respiratory specimen negati ve Not Available [facility] - [facility] ed [address] [place] [address], [phone] 04/27/2022 16:17:26 02/16/20 23 02/15/2023 rapid flu (A+B) Flu negati ve Not Available [facility] ed [address] [place] [address], [phone] 02/15/2023 15:00:42 02/16/20 23 02/15/2023 rapid SARS CoV 2 Ag, QL IA, respi rator y speci men rapid SARS CoV 2 Ag, QL IA, respiratory specimen negati ve Not Available [facility] - [facility] ed [address] [place] [address], [phone] 02/15/2023 15:00:34 Result Notes None recorded. Medical Equipment None Reported. Allergies Allergen ID Allergen Name Allergen Category Reaction Reaction Severity Criticality Documentation Date Start Date Code Code System Note Provider Name and Address Organization Details Recorded Time 3231 Depakene medicatio n Not available Not available Not available 02/16/2023 5 RxNorm Chasity Mark MD [address] [place] [address],[address], [place], [address], [place] [facility] 3 13:18:24 3233 Dilantin medicatio n Not available Not available Not available 02/16/2023 0 RxJareth Mark MD [address] [place] [address],[address], [place], [address], [place] [facility] 13:18:32 323 Tegretol medicatio n Not available Not available Not available 02/16/2023 9 RxNorm Chasity Mark MD [address] [place] [address],[address], [place], [address], [place] [facility] 13:18:53 3235 erythromy akhil medicatio n Not available Not available Not available 02/16/2023 4053 RxNorm and ilosi ne Chasity Mark MD [address] [place] [address],[address], [place], [address], [place] [facility] 3 13:19:12 3236 Feldene medicatio n Not available Not available Not available 02/16/202319718 8 RxNorm Cahsity Mark MD [address] [place] [address],[address], [place], [address], [place] [facility] 3 13:19:27 3237 Dolobid medicatio n Not available Not available Not available 02/16/202334298 6 RxNorm Chasity Mark MD [address] [place] [address],[address], [place], [address], [place] [facility] 13:19:35 3238 Substance with sulfonami de structure and antibacte rial mechanism of action (substanc e) medicatio n Not available Not available Not available 02/16/2023 26480 8003 SNOMED Chasity Mark MD [address] [place] [address],[address], [place], [address], [facility] 3 13:19:43 3239 Product containin g penicilli n (product) medicatio n Not available Not available Not available 02/16/2023 72607 8001 SNOMED Not Available [facility] 4 03:34:14 3240 codeine medicatio n Not available Not available Not available 02/16/2023 2670 RxNorm Chasity Mark MD [address] [place] [address],[address], [place], [address], [facility] 3 13:20:02 3241 lisinopri l medicatio n Not available Not available Not available 02/16/2023 47784 RxNorm She was on lisin opril /hydr ochlo rothi azide and does not know which moiet y she had the react ion to Chasity Mark MD [address] [place] [address],[address], [place], [address] [place] [address], [facility] 3 13:20:49 3242 adhesive tape environme nt,medica tion Not available Not available Not available 02/16/2023 63238 UNK Chasity Mark MD [address] [place] [address],[address], [place], [address] [place] [address] 0, [facility] 3 13:21:07 7004 Bactrim medicatio n Not available Not available Not available 04/08/2024 02071 9 RxNorm Not Available [facility] 03:34:14 Medications Name Sig [...] % 158 mm[Hg] 72 mm[Hg] Not Available [facility] [employer] 3 14:53:01 Date Recorded Oxygen saturation Oxygen saturation in Arterial blood by Pulse oximetry Body weight Body temperature Heart rate Body height Respiratory rate Systolic blood pressure Diastolic blood pressure Provider Name and Address Organization Details Last Updated DateTime 4 98 % 98 % 63839.0 4 g 98.8 [degF] 78 /min 152.4 cm 18 /min 139 mm[Hg] 77 mm[Hg] Not Available [facility] [employer] 4 11:54:32 Date Recorded Body temperature Oxygen saturation Oxygen saturation in Arterial blood by Pulse oximetry Respiratory rate Heart rate Systolic blood pressure Diastolic blood pressure Provider Name and Address Organization Details Last Updated DateTime 4 97.2 [degF] 96 % 96 % 16 /min 88 /min 127 mm[Hg] 75 mm[Hg] Not Available [facility] 4 13:32:36 Date Recorded Body [...] mm[Hg] 135 mm[Hg] 84 mm[Hg] Not Available [facility] 2 11:15:04 Social History None [...] Note [id number] Ferny Harrison MD [facility] - [address] [address] 04/27/2022 11:06:08 05/02/2022 09:06:31 Cough 80061806 R05.9 [id number] Chasity Mark MD [facility] [address] [place] [address] 02/15/2023 14:52:47 02/15/2023 23:29:56 Viral upper respiratory tract infection 777365677 J06.9 Advised to increase p.o. hydration. rest [...] Advised to discuss further with her PCP [id number] Pa Garcia MD [facility] [address] [place] [phone] 06/29/2023 11:10:17 07/21/2023 13:44:47 Low back pain 133175520 M54.50 [id number] Real Mojica MD [facility] [address] [place] [address] 10/07/2023 13:32:33 10/07/2023 17:22:10 COVID-19 [id number] U07.1 This 68-year-ol d female with COPD [...] Dugan Member ID Guarantor Name 04/27/2022 1 [facility] C[facility] - DOS PRIOR TO 2022 - DUAL ELIGIBLE (MEDICARE REPLACEMENT/ADV ANTAGE - HMO) Sarahy Neves [id number] Sarahy Neves 02/15/2023 1 [facility] - DOS ON OR AFTER 2022 - DUAL ELIGIBLE - SHELTER OPTIONS AND ONE CARE (MEDICARE REPLACEMENT/ADV ANTAGE - HMO) Sarahy Neves [id number] Sarahy Neves 06/29/2023 1 [facility] - DOS ON OR AFTER 2022 - DUAL ELIGIBLE - SHELTER OPTIONS AND ONE CARE (MEDICARE REPLACEMENT/ADV ANTAGE - HMO) Sarahy Neves [id number] Sarahy Neves 10/07/2023 1 [facility] ALL[facility] - DOS ON OR AFTER 2022 - DUAL ELIGIBLE - SHELTER OPTIONS AND ONE CARE (MEDICARE REPLACEMENT/ADV ANTAGE - HMO) Sarahy Villatoro Pura [id number] Leida M Garcíaluigi Notes Date Note Type Note Provider Name and Address Organization Details Recorded Time 04/27/2022 text/html HPI: [place] [facility] [place] [facility] Mbr reports not feeling well since 04/23/22. 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 Mbr speaking full clear sentences with this singer songwriter during call, no signs of SOB, wheezing [...] ..................... ..................... ..................... ..................... ..................... ..................... ............... Lean Six Sigma Black Belt Note: Pt presents awake and alert c/o sinus/right ear pressure, congestion, non productive cough, dyspnea with exertion, and fatigue x4 days. Pt denies f/n/v/d, cp, and dizziness. LS: clear/equal bilaterally. Covid, flu, strep neg. [facility] contacted. Pt educated on supportive care and when to go to the ED. ..................... ..................... ..................... ..................... ..................... ..................... ............... Disposition: Fulfilled Ferny Harrison MD [address] [facility],[address], [place], [address], [facility] 04/27/2022 16:18:15 02/15/2023 text/html HPI: FRANC is a 68 y/o female with a PMH of asthma, hx thyroid CA, positional vertigo, migraines, seizure disorder, sleep walking disorder, anxiety, HTN, orthostatic hypotension, HLD, non-compliance with medical tx, and depression. JORGER states that she saw her MD in December and ? h e heard wheezing in one of my lower lungs.? JORGER has been taking inhalers, which are not helping as much anymore. MBR states that her ? l ungs have been burning for a week? ; she has a dry, nonproductive cough; a runny nose; and weakness. MBR denies CP, fevers, wheezing, or radiating jaw/back [...] to start with an in-home visit first. JORGER? s address and phone number on file confirmed. FRANC can be reached at [phone]. ..................... ..................... ..................... ..................... ..................... ..................... ............... [facility] Nursing Assessment: Comments: SOB that started this morning. History of asthma. Taking prescribed inhalers as needed. Used inhaler x1 today. + cough, non-productive x2 days. Voice sounds hoarse. Runny nose. No known fevers. Denies body aches, chills, or sore throat. ..................... ..................... ..................... ..................... ..................... ..................... ............... Lean [employer] Sigma Black Belt Note From Liban Jacob: PT complains of [...] melena or hematochezia Chasity Mark MD [address] [facility],[address], [place], [address], [facility] 02/16/2023 13:25:30 06/29/2023 text/html HPI: Member calls [...] Rojo): Comments: HPI was reviewed by this singer songwriter - No further information needed at this time. Waqas AQUINO ..................... ..................... ..................... ..................... ..................... ..................... ............... Lean Six Sigma Black Belt Note From Stacie Han: Sent to a [...] test: neg; 12 lead ECG: uploaded to [employer]. BP:139/77, P:78, RR:18, SpO2:98% RA, T:98.8; Head: sinus tenderness; Throat: erythema noted, no edema or exudate; Chest: bilateral chest tenderness; Lung sounds: clear bilaterally; Abdomen: soft, non-tender, no distention; Back: no tenderness; Extremities: unremarkable; Skin: pink, warm, dry; [facility] consulted and will request earlier follow up appt with PCP. [facility] orders Ketorolac 15mg IM. Ketorolac 15mg IM administered without incident. Red flags discussed. Pt has no further questions. ..................... ..................... ..................... ..................... ..................... ..................... ............... Disposition: Fulfilled Pa Garcia MD [address] [place] [address],[address], [place], [address], [facility] 07/20/2023 08:46:37 10/07/2023 text/html HPI: mbr tested positive for covid on Sunday was prescribed paxlovid, states feeling worse with complaints of increased SOB/N/fever/chills/po or po intake, feeling dizzy lightheaded, and weak. requesting [facility] visit for evaluation Protocol Used: Cough - Acute Productive Protocol-Based Disposition: Consider [facility] Community clinician, MD/POWDER LOADER triage, PCP, or Urgent Care Visit within [...] ..................... ..................... ..................... ..................... ..................... ..................... ............... [facility] Nurse Triage Notes (Ryan Patricio): Comments: HPI reviewed by this RN, no further information needed to process visit -MILES Mclaughlin MD [address] [place] [address],[address], [place], [address], [facility] 10/07/2023 13:37:29 OBGyn Episode No OBEpisode recorded.
--- OUTSIDE RECORDS SUMMARY | 2024-09-15 14:33 | XMS_ITS | Patient Health Record ---
Author Organization [facility] Address [address] [place] [address] Care Team Providers Care Commercial Assistant Name Role Phone MANDO TAMAYO Primary Care Provider Philippe Tsai Jr Allergies Allergen (clinical drug ingredient) Drug/Non Drug Allergy documented on EMR Reaction Allergy Type Onset Date Status erythromycin Erythromycin Unknown Drug Allergy A ctive phenytoin Dilantin Unknown Drug Allergy Active valproate Depakote Unknown Drug Allergy Active codeine Codeine Sulfate Unknown Drug Allergy A ctive sulfamethoxazole / trimethoprim Bactrim Unknown Drug Allergy Active diflunisal Dolobid Unknown Drug Allergy Active Adhesive Tape Unknown Drug Allergy Act roopa Sulfa Unknown Drug Allergy Active Penicillin Unknown Drug Allergy Active carbamazepine Tegretol Unknown Drug Allergy Act roopa Lisinopril-Hydrochlo rothiazide Unknown Drug Allergy Active piroxicam Feldene Unknown Drug Allergy Active Reason For Referral No Information Medications Medication SIG (Take, Route, Frequency, Duration) Notes Start Date End Date Status clonazePAM 0.5 MG 1 tablet at bedtime Orally as directed Active Levothyroxine Sodium 25 MCG 1 tablet on an empty stomach in the morning Orally Once a day Active FLUoxetine HCl 10 MG 1 capsule in the morning Orally Once a day Active Colace 100 MG 1 capsule as needed Orally Once a day Active Meclizine HCl 25 MG 1 tablet as needed Orally Once a day Active traZODone HCl 100 MG 1/2 tablet at bedti me Orally Once a day Active Topamax 100 MG 1 tablet Orally Twic e a day Active Mag Oxide-Vit D3-Turmeric [phone] MG-UNIT-MG as directed Orally Active ProAir HFA 108 (90 Base) MCG/ACT 2 puffs as needed Inhalation every 6 hrs Active Aspir-81 81 MG 1 tablet Orally Once a day Active Vitamin B-2 100 MG 1 tablet Orally Once a day Active Fluticasone Propionate 50 MCG/DOSE 2 spray in each nostril Nasally Once a day Active Topiramate 100 MG 1 tablet Orally Twic e a day Active Albuterol Sulfate (2.5 MG/3ML) 0.083% 3 ml as needed Inhalation Three times a day Active MiraLax - 1 packet mixed with 8 ounces of fluid Orally Once a day as needed Active Fludrocortisone Acetate 0.1 MG 1 tablet Orally Once a day Active Montelukast Sodium 10 MG 1 tablet Orally Once a day Active Alendronate Sodium 70 MG/75ML 75 mL 30 minutes before the first food, beverage or medicine of the day with plain water Orally Active Atorvastatin Calcium 40 MG 1 tablet Oral ly Once a day Active Advair Diskus 250-50 MCG/DOSE 1 puff Inhalation Twice a day Active SUMAtriptan Succinate 100 MG 1 tablet as needed Orally prn Active Vitamin D 1000 UNIT 1 tablet Orally Once a day Active Ibuprofen 400 MG 1 tablet with food o r milk as needed Orally Three times a day Active Immunizations Vaccine Route Administration Date Status Comme nts Influenza Unknown 09/15/2024 Refused Social History Tobacco Use: Social History Observation Description Date Details (start date - stop date) Never Smoker NA - NA Tobacco Use/Smoking Question Answer Notes Patient is a nonsmoker Alcohol Screen Question Answer Notes Did you have a drink containing alcohol in the p ast year? No Points 0 Interpretation Negative Problems Problem Type SNOMED Code ICD Code Onset Dates Problem Status W/U Status Risk Notes Problem Colon cancer screening (925101887) Colon cancer screening (Z12.11) Active confirmed Problem 202845469 Long-term use of aspirin therapy (Z79.82) Active confirmed Vital Signs Temperature 96.9 degrees Fahrenheit 09/15/2024 Blood pressure diastolic 01 mm Hg 09/15/2024 Height 60 in 09/15/2024 Blood pressure systolic 001 mm Hg 09/15/2024 Weight 116 lbs 09/15/2024 BMI 22.65 kg/m2 09/15/2024 Encounters Encounter Location Date Provider Diagnosis [facility] [address] [place] [phone] 09/15/2024 Philippe Price Jr Plan Of Treatment Next Appt Details Provider Name:Philippe ivory Jr, 10/10/2024 11:40:00 AM, [address] [place] [address] , [place], [phone], Insurance Providers Payer Name Payer Address Payer Phone Subscriber Number Group Number Insured Name Patient Relationship to Insured Coverage Start Date Coverage End Date [facility] [address] [facility] [place] [phone] [id number] SWATHI BANDA Self - patient is the insured Medical (General) History Medical History History ICD Code asthma thyroid cancer allergies depression anxiety seizures gait problems migraine headaches sleep walking conversion disorder insomnia night terrors rhinitis allergies Surgical History Surgery Date(Month/Year) arthroscopy shoulder arthroscopy left knee right foot ankle partial right knee cartridge left thyroid lobectomy arthroscopy right knee colonic tumoc esophagus mediastirial tumor segmental colectomy for endometriosis esophageal leiomyoma resection thyroidectomy right knee arthroscopy ankle surgery left knee arthroscopy rotator cuff tear repair hysterectomy
--- OUTSIDE RECORDS SUMMARY | 2024-09-15 14:33 | XMS_ITS ---
Author Organization [facility] Address [address] [place] [address] Care Team Providers Care Administrative Assistant Coordinator Name Role Phone EdgarCase melendez Primary Care Provider Sebastien Byrnes Unavailable [phone] GABRIELLE BEDOLLA Unavailable [phone] REASON FOR VISIT 09/15 - LMOM Encounters Encounter Location Date Provider Diagnosis [facility], [address] [address] 09/02/2024 GABRIELLE BEDOLLA Plan Of Treatment No Information Progress Notes * Sarahy NEVES MDOB:[birth year] (69 yo F)Acc No.[id number]:09/02/2024 Patient:?Sarahy NEVES :1955???Age:69 Y???Sex:Female Address:[address] [place] [address], [address] * * Date:?
--- NOTE | 2024-10-08 12:05 | HO.ANESPROP2 ---
HPI - Anesthesia Eval Consult details Narrative: 69yo F for Colonoscopy PMF Active Problems Active Problems: All Active Problems Pulsatile tinnitus (Acute) Worsening headaches (Acute) Allergic rhinitis (Acute) BPPV (benign paroxysmal positional vertigo) (Acute) Sinusitis, acute (Acute) Vertigo (Acute) Pre-op examination (Acute) Tubular adenoma of colon (Acute) Poor nutrition (Acute) Liver cyst (Acute) Angiomyolipoma (Acute) Environmental allergies (Acute) Vitamin D deficiency (Acute) Sleep walking (Acute) Migraine (Acute) Lower back pain (Acute) Impingement syndrome of right shoulder (Acute) Cervical radicular pain (Acute) Elevated d-dimer (Acute) B12 deficiency (Acute) Hearing decreased (Acute) Thyroid nodule (Acute) Conversion disorder (Acute) Hyperlipemia (Acute) Asthma (Acute) HTN (hypertension) (Acute) Depression (Acute) Conversion disorder with attacks or seizures, acute episode, with psychological stressor (Acute) Osteoporosis (Acute) Hypothyroid (Acute) Past Medical History Medical History Anesthesia complication Liver lesion Ingrown toenail Elevated liver enzymes Concussion with loss of consciousness SOB (shortness of breath) Pain of both earlobes Dizziness New onset headache Otitis externa of both ears Acute effusion of right ear Dermatitis Myalgia Headache 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 COVID-19 Pre-syncope Dyspnea Chest pain Pneumonia Osteoporosis Screening for osteoporosis CKD (chronic kidney disease) Dyslipidemia Hypothyroid Hyperlipemia Ataxic gait Seizures Asthma Depression Conversion disorder HTN (hypertension) Muscle weakness Hypothyroid Conversion disorder with attacks or seizures, acute episode, with psychological stressor Family History Family History Father CVD (cardiovascular disease) Stomach ulcer Cardiac arrest H/O heart bypass surgery Mother History of heart attack CHF (congestive heart failure) Lung cancer Diabetes mellitus High cholesterol HTN (hypertension) Hypothyroidism Sister Lung cancer Substance use disorder Brother Colitis Sister No problems noted. Sister Obstetric pulmonary blood clot embolism, antepartum Paternal Aunt Mental health disorder Substance use disorder Maternal Grandmother Mental health disorder Family/Other Substance use disorder Surgical History Surgical History H/O colonoscopy History of right knee surgery History of lobectomy of thyroid History of arthroscopy of right knee History of ankle surgery History of arthroscopy of left knee History of hysterectomy Social History Social History Household Members: Family Household Members Other:: brother, 2 cats Housing: House Alcohol intake: never Patient Tobacco Use Status: Never used Tobacco e-Cigarette/Vaping Use: Never Used Second Hand Smoke Exposure: No Current occupational status: disabled Cognitive needs: No Hearing needs: No Vision needs: No Meds Allergies Allergy/AdvReac Type Severity Reaction Status Date / Time Penicillins [PENICILLINS] Allergy Intermediate HIVES Verified 08/21/24 13:43 carbamazepine [From Tegretol] Allergy Mild HIVES Verified 08/21/24 13:43 diflunisal [From Dolobid] Allergy Mild HIVES Verified 08/21/24 13:43 erythromycin base Allergy Mild HIVES Verified 08/21/24 13:43 [From Edwin-Tab] phenytoin [From Dilantin] Allergy Mild RASH,HIVES Verified 08/21/24 13:43 piroxicam [From Feldene] Allergy Mild HIVES Verified 08/21/24 13:43 sulfamethoxazole Allergy Mild HIVES Verified 08/21/24 13:43 [From Bactrim] trimethoprim [From Bactrim] Allergy Mild HIVES Verified 08/21/24 13:43 valproic acid [From Depakene] Allergy Mild HIVES Verified 08/21/24 13:43 Depakene Allergy Unknown Rash Verified 08/21/24 13:43 hydrochlorothiazide Allergy Unknown rash Verified 08/21/24 13:43 [HYDROCHLOROTHIAZIDE] lisinopril [LISINOPRIL] Allergy Unknown rash Verified 08/21/24 13:43 codeine [Codeine] AdvReac Intermediate NAUSEA & Verified 08/21/24 13:43 VOMITING rash doxycycline AdvReac Stomach Verified 08/21/24 13:43 Upset ENVIRONMENTAL Allergy Intermediate ASTHMA,LOSES Uncoded 08/21/24 13:43 VOICE TAPE,PLASTIC Allergy Intermediate RASH Uncoded 08/21/24 13:43 surgical tape Allergy Unknown unknown Uncoded 08/21/24 13:43 Home Medications ?Medication ?Instructions ?Recorded ?Confirmed ?Last Taken ?Type aspirin 81 mg tablet,delayed 81 mg PO DAILY 07/05/20 07/11/24 Unknown History release (Adult Low Dose Aspirin) Exam Pertinent Lab Results Pertinent Lab Results: Laboratory Tests 08/21/24 14:10 WBC 6.1 Hgb 12.8 Hct 39.7 Plt Count 271 Sodium 141 Potassium 4.9 D Chloride 113 H Carbon Dioxide 23 BUN 20 H Creatinine 0.85 Narrative Narrative: EKG 08/2024 Vent. Rate : 69 BPM Atrial Rate : 69 BPM P-R Int : 168 ms QRS Dur : 74 ms QT Int : 392 ms P-R-T Axes : 73 33 44 degrees QTcB Int : 420 ms Normal sinus rhythm Normal ECG When compared with ECG of 16-Jan-2024 16:11, No significant change was found Assessment and Plan Assessment Anesthesia Assessment: Chart Reviewed
--- NOTE | 2024-11-24 10:39 | HO.ANESPROP2 ---
Documented by User: Tressa Cadena NP 11/24/24 10:45 HPI - Anesthesia Eval Consult details Narrative: 69yo F for Colonoscopy Follows Neuro for long history of functional neurologic disorder. Last office visit 11/2024 with some med adjustment and repeat MRI planned. REPLACED BY [facility] Active Problems Active Problems: All Active Problems Falls (Acute) Pulsatile tinnitus (Acute) Worsening headaches (Acute) Allergic rhinitis (Acute) BPPV (benign paroxysmal positional vertigo) (Acute) Sinusitis, acute (Acute) Vertigo (Acute) Pre-op examination (Acute) Tubular adenoma of colon (Acute) Poor nutrition (Acute) Liver cyst (Acute) Angiomyolipoma (Acute) Environmental allergies (Acute) Vitamin D deficiency (Acute) Sleep walking (Acute) Migraine (Acute) Lower back pain (Acute) Impingement syndrome of right shoulder (Acute) Cervical radicular pain (Acute) Elevated d-dimer (Acute) B12 deficiency (Acute) Hearing decreased (Acute) Thyroid nodule (Acute) Conversion disorder (Acute) Hyperlipemia (Acute) Asthma (Acute) HTN (hypertension) (Acute) Depression (Acute) Conversion disorder with attacks or seizures, acute episode, with psychological stressor (Acute) Osteoporosis (Acute) Hypothyroid (Acute) Past Medical History Medical History Falls Anesthesia complication Liver lesion Ingrown toenail Elevated liver enzymes Concussion with loss of consciousness SOB (shortness of breath) Pain of both earlobes Dizziness New onset headache Otitis externa of both ears Acute effusion of right ear Dermatitis Myalgia Headache REM sleep behavior disorder Convulsion disorder COVID-19 Pre-syncope Dyspnea Chest pain Pneumonia Osteoporosis Screening for osteoporosis CKD (chronic kidney disease) Dyslipidemia Hypothyroid Hyperlipemia Ataxic gait Seizures Asthma Depression Conversion disorder HTN (hypertension) Muscle weakness Hypothyroid Conversion disorder with attacks or seizures, acute episode, with psychological stressor Family History Family History Father CVD (cardiovascular disease) Stomach ulcer Cardiac arrest H/O heart bypass surgery Mother History of heart attack CHF (congestive heart failure) Lung cancer Diabetes mellitus High cholesterol HTN (hypertension) Hypothyroidism Sister Lung cancer Substance use disorder Brother Colitis Sister No problems noted. Sister Obstetric pulmonary blood clot embolism, antepartum Paternal Aunt Mental health disorder Substance use disorder Maternal Grandmother Mental health disorder Family/Other Substance use disorder Surgical History Surgical History H/O colonoscopy History of right knee surgery History of lobectomy of thyroid History of arthroscopy of right knee History of ankle surgery History of arthroscopy of left knee History of hysterectomy Social History Social History Household Members: Family Household Members Other:: brother, 2 cats Housing: House Are you a primary senior care manager to a significant other at home: No Do you presently have visiting nurse or other home services: No Alcohol intake: never Patient Tobacco Use Status: Never used Tobacco e-Cigarette/Vaping Use: Never Used Second Hand Smoke Exposure: No Current occupational status: disabled Cognitive needs: No Hearing needs: No Vision needs: No Meds Allergies Allergy/AdvReac Type Severity Reaction Status Date / Time Penicillins [PENICILLINS] Allergy Intermediate HIVES Verified 11/25/24 10:41 carbamazepine [From Tegretol] Allergy Mild HIVES Verified 11/25/24 10:41 diflunisal [From Dolobid] Allergy Mild HIVES Verified 11/25/24 10:41 erythromycin base Allergy Mild HIVES Verified 11/25/24 10:41 [From Edwin-Tab] phenytoin [From Dilantin] Allergy Mild RASH,HIVES Verified 11/25/24 10:41 piroxicam [From Feldene] Allergy Mild HIVES Verified 11/25/24 10:41 sulfamethoxazole Allergy Mild HIVES Verified 11/25/24 10:41 [From Bactrim] trimethoprim [From Bactrim] Allergy Mild HIVES Verified 11/25/24 10:41 valproic acid [From Depakene] Allergy Mild HIVES Verified 11/25/24 10:41 Depakene Allergy Unknown Rash Verified 11/25/24 10:41 hydrochlorothiazide Allergy Unknown rash Verified 11/25/24 10:41 [HYDROCHLOROTHIAZIDE] lisinopril [LISINOPRIL] Allergy Unknown rash Verified 11/25/24 10:41 codeine [Codeine] AdvReac Intermediate NAUSEA & Verified 11/25/24 10:41 VOMITING rash doxycycline AdvReac Stomach Verified 11/25/24 10:41 Upset ENVIRONMENTAL Allergy Intermediate ASTHMA,LOSES Uncoded 11/25/24 10:41 VOICE TAPE,PLASTIC Allergy Intermediate RASH Uncoded 11/25/24 10:41 surgical tape Allergy Unknown unknown Uncoded 11/25/24 10:41 Home Medications ?Medication ?Instructions ?Recorded ?Confirmed ?Last Taken ?Type aspirin 81 mg tablet,delayed 81 mg PO DAILY 07/05/20 07/11/24 Unknown History release (Adult Low Dose Aspirin) Exam Pertinent Lab Results Pertinent Lab Results: Laboratory Tests 08/21/24 14:10 WBC 6.1 Hgb 12.8 Hct 39.7 Plt Count 271 Sodium 141 Potassium 4.9 D Chloride 113 H Carbon Dioxide 23 BUN 20 H Creatinine 0.85 Narrative Narrative: EKG 08/2024 Vent. Rate : 69 BPM Atrial Rate : 69 BPM P-R Int : 168 ms QRS Dur : 74 ms QT Int : 392 ms P-R-T Axes : 73 33 44 degrees QTcB Int : 420 ms Normal sinus rhythm Normal ECG When compared with ECG of 16-Jan-2024 16:11, No significant change was found Assessment and Plan Assessment Anesthesia Assessment: Chart Reviewed Documented by User: Riana Wells MD 11/25/24 12:17 REPLACED BY [facility] Past Medical History Medical History Falls Anesthesia complication Liver lesion Ingrown toenail Elevated liver enzymes Concussion with loss of consciousness SOB (shortness of breath) Pain of both earlobes Dizziness New onset headache Otitis externa of both ears Acute effusion of right ear Dermatitis Myalgia Headache REM sleep behavior disorder Convulsion disorder COVID-19 Pre-syncope Dyspnea Chest pain Pneumonia Osteoporosis Screening for osteoporosis CKD (chronic kidney disease) Dyslipidemia Hypothyroid Hyperlipemia Ataxic gait Seizures Asthma Depression Conversion disorder HTN (hypertension) Muscle weakness Hypothyroid Conversion disorder with attacks or seizures, acute episode, with psychological stressor Family History Family History Father CVD (cardiovascular disease) Stomach ulcer Cardiac arrest H/O heart bypass surgery Mother History of heart attack CHF (congestive heart failure) Lung cancer Diabetes mellitus High cholesterol HTN (hypertension) Hypothyroidism Sister Lung cancer Substance use disorder Brother Colitis Sister No problems noted. Sister Obstetric pulmonary blood clot embolism, antepartum Paternal Aunt Mental health disorder Substance use disorder Maternal Grandmother Mental health disorder Family/Other Substance use disorder Surgical History Surgical History H/O colonoscopy History of right knee surgery History of lobectomy of thyroid History of arthroscopy of right knee History of ankle surgery History of arthroscopy of left knee History of hysterectomy History of Problems with Anesthesia: No Social History Social History Household Members: Family Household Members Other:: brother, 2 cats Housing: House Are you a primary senior care manager to a significant other at home: No Do you presently have visiting nurse or other home services: No Alcohol intake: never Patient Tobacco Use Status: Never used Tobacco e-Cigarette/Vaping Use: Never Used Second Hand Smoke Exposure: No Current occupational status: disabled Cognitive needs: No Hearing needs: No Vision needs: No Meds Allergies Allergy/AdvReac Type Severity Reaction Status Date / Time Penicillins [PENICILLINS] Allergy Intermediate HIVES Verified 11/25/24 10:41 carbamazepine [From Tegretol] Allergy Mild HIVES Verified 11/25/24 10:41 diflunisal [From Dolobid] Allergy Mild HIVES Verified 11/25/24 10:41 erythromycin base Allergy Mild HIVES Verified 11/25/24 10:41 [From Edwin-Tab] phenytoin [From Dilantin] Allergy Mild RASH,HIVES Verified 11/25/24 10:41 piroxicam [From Feldene] Allergy Mild HIVES Verified 11/25/24 10:41 sulfamethoxazole Allergy Mild HIVES Verified 11/25/24 10:41 [From Bactrim] trimethoprim [From Bactrim] Allergy Mild HIVES Verified 11/25/24 10:41 valproic acid [From Depakene] Allergy Mild HIVES Verified 11/25/24 10:41 Depakene Allergy Unknown Rash Verified 11/25/24 10:41 hydrochlorothiazide Allergy Unknown rash Verified 11/25/24 10:41 [HYDROCHLOROTHIAZIDE] lisinopril [LISINOPRIL] Allergy Unknown rash Verified 11/25/24 10:41 codeine [Codeine] AdvReac Intermediate NAUSEA & Verified 11/25/24 10:41 VOMITING rash doxycycline AdvReac Stomach Verified 11/25/24 10:41 Upset ENVIRONMENTAL Allergy Intermediate ASTHMA,LOSES Uncoded 11/25/24 10:41 VOICE TAPE,PLASTIC Allergy Intermediate RASH Uncoded 11/25/24 10:41 surgical tape Allergy Unknown unknown Uncoded 11/25/24 10:41 Home Medications ?Medication ?Instructions ?Recorded ?Confirmed ?Last Taken ?Type aspirin 81 mg tablet,delayed 81 mg PO DAILY 07/05/20 07/11/24 Unknown History release (Adult Low Dose Aspirin) Exam Airway Mallampati Class: II TM Dist: >3cm Neck ROM: Full Loose/Missing/Broken Teeth: Yes, Upper and Lower Heart: RRR Lungs: CTA Assessment and Plan Assessment Anesthesia Assessment: Anesthesia Plan Discussed Final Anesthetic Review History of Problems with Anesthesia: No NPO: Yes ASA Class: II Final Preanesthetic Review: Meds/Allgs Chart Reviewed, Consent Obtained/Reviewed and Anes Risks/Benef Reviewed Patient Risk: Low Procedure Risk: Low Anesthetic Plan Anesthetic Plan: MAC: Disposition: Standard PACU
[2024-11-25 10:54] VITALS: BP 140/56; PULSE 64; RESP 12; TEMP 36.6; O2SAT 99; BMI 22.3
[2024-11-25] MEDS: Lactated Ringers 1,000 ML 100 ML IVCONT (10:58)
--- NOTE | 2024-11-25 11:59 | MHC.SHP ---
Pre-Procedural Eval Section A - 24 Hr Update-Section A only Date of Service: 11/25/24 The patient is an INPATIENT: No Changes since office visit: No Cold of Flu in the past 2 weeks, No New Medical Problems, No Changes in Medication and No Patient answered all questions The patient has been examined within 24 hours of the surgical procedure. The History & Physical has been completed within 30 days and I have reviewed it.: Yes Section B - Complete if H&P > 30 days Chief Complaint: Encounter for screening for malignant neoplasm of Allergies: Allergies Allergy/AdvReac Type Severity Reaction Status Date / Time Penicillins [PENICILLINS] Allergy Intermediate HIVES Verified 11/25/24 10:41 carbamazepine [From Tegretol] Allergy Mild HIVES Verified 11/25/24 10:41 diflunisal [From Dolobid] Allergy Mild HIVES Verified 11/25/24 10:41 erythromycin base Allergy Mild HIVES Verified 11/25/24 10:41 [From Edwin-Tab] phenytoin [From Dilantin] Allergy Mild RASH,HIVES Verified 11/25/24 10:41 piroxicam [From Feldene] Allergy Mild HIVES Verified 11/25/24 10:41 sulfamethoxazole Allergy Mild HIVES Verified 11/25/24 10:41 [From Bactrim] trimethoprim [From Bactrim] Allergy Mild HIVES Verified 11/25/24 10:41 valproic acid [From Depakene] Allergy Mild HIVES Verified 11/25/24 10:41 Depakene Allergy Unknown Rash Verified 11/25/24 10:41 hydrochlorothiazide Allergy Unknown rash Verified 11/25/24 10:41 [HYDROCHLOROTHIAZIDE] lisinopril [LISINOPRIL] Allergy Unknown rash Verified 11/25/24 10:41 codeine [Codeine] AdvReac Intermediate NAUSEA & Verified 11/25/24 10:41 VOMITING rash doxycycline AdvReac Stomach Verified 11/25/24 10:41 Upset ENVIRONMENTAL Allergy Intermediate ASTHMA,LOSES Uncoded 11/25/24 10:41 VOICE TAPE,PLASTIC Allergy Intermediate RASH Uncoded 11/25/24 10:41 surgical tape Allergy Unknown unknown Uncoded 11/25/24 10:41 Plan I have reviewed the history and physical and performed a pertinent physical examination on my patient. No changes have occurred unless specified. Time Spent With Patient Time: Total time managing care of this patient today ____ minutes.
[2024-11-25 12:48] VITALS: BP 124/62; PULSE 69; RESP 18; TEMP 36.4; O2SAT 100
[2024-11-25 13:03] VITALS: BP 133/64; PULSE 70; RESP 16; TEMP 36.4; O2SAT 98
--- NOTE | 2024-11-25 13:23 | OP_ITS ---
DATE OF SERVICE: 11/25/2024 SURGEON: Philippe Price MD INDICATIONS: Colon cancer screening. PREOPERATIVE DIAGNOSIS: POSTOPERATIVE DIAGNOSIS: PROCEDURE PERFORMED: Colonoscopy to the terminal ileum. ESTIMATED BLOOD LOSS: COMPLICATIONS: ANESTHESIA: Monitored anesthesia care. ASSISTANTS: SPECIMENS: DESCRIPTION OF PROCEDURE: A history and physical was performed. The risks and benefits of the procedure were explained to the patient, and informed consent was obtained. The patient was placed in the left lateral decubitus position. A digital rectal exam was performed and was found to be normal. The Olympus pediatric video colonoscope was introduced into the rectum and advanced to the cecum. The cecum was identified by transillumination, palpation, and identification of ileocecal valve. Examination was performed. The scope was removed. She tolerated the procedure well and was returned to the recovery area in stable condition. FINDINGS: The terminal ileum was examined and appeared normal. The visualized colonic mucosa was normal. The quality of the prep was good. No polyps were identified. There was mild sigmoid diverticulosis with scattered diverticula throughout the remainder of the colon. Retroflexed examination showed small internal hemorrhoids. IMPRESSION: Normal colonoscopy. RECOMMENDATION: 1. Follow up as needed. 2. Repeat colonoscopy is recommended in 10 years for average-risk individuals. This is optional based on her age. MD ANGELO Holder/DAILY / [phone]
== END 2024-11-25 13:40 | disposition home or self-care (01) ==
PROVIDERS: PCP Nurse Practitioner Family; Visit Provider Internal Medicine Gastroenterology
PROC: 0DJD8ZZ Inspection of Lower Intestinal Tract, Via Natural or Artificial Opening Endoscopic (ICD-10-PCS; CPT 45378; principal; 2024-11-25 11:40)
DX: Z12.11 Encounter for screening for malignant neoplasm of colon (principal); Z86.0101 Personal history of adenomatous and serrated colon polyps; K57.30 Diverticulosis of large intestine without perforation or abscess without bleeding; K64.8 Other hemorrhoids; K76.0 Fatty (change of) liver, not elsewhere classified; D18.03 Hemangioma of intra-abdominal structures; J45.909 Unspecified asthma, uncomplicated; R56.9 Unspecified convulsions; Z85.850 Personal history of malignant neoplasm of thyroid; E89.0 Postprocedural hypothyroidism; R26.9 Unspecified abnormalities of gait and mobility; F44.9 Dissociative and conversion disorder, unspecified; F32.A Depression, unspecified; G43.909 Migraine, unspecified, not intractable, without status migrainosus; Z79.1 Long term (current) use of non-steroidal anti-inflammatories (NSAID); Z79.82 Long term (current) use of aspirin; Z79.51 Long term (current) use of inhaled steroids; Z79.899 Other long term (current) drug therapy; Z88.0 Allergy status to penicillin; Z88.5 Allergy status to narcotic agent; Z88.2 Allergy status to sulfonamides; Z88.1 Allergy status to other antibiotic agents; Z88.8 Allergy status to other drugs, medicaments and biological substances; L23.1 Allergic contact dermatitis due to adhesives; Z98.890 Other specified postprocedural states
CPT/HCPCS: G0105

== ENCOUNTER 2024-12-08 11:06 | Inpatient (IN) | payer OTHER, SELFPAY ==
[2024-12-08] VITALS (8 sets, daily range): BP systolic 120–166; BP diastolic 58–95; PULSE 61–84; RESP 14–20; TEMP 36.4–37; O2SAT 97–99; BMI 21.0
--- NOTE | ~2024-12-08 | CT_ITS ---
EXAMINATION: CT CHEST WITHOUT IV CONTRAST, CT ABDOMEN PELVIS WITHOUT IV CONTRAST INDICATION: L chest tenderness, lower abdominal pain and tenderness, fall COMPARISON: Comparison is made with the prior chest CT dated 07/29/[address] of the abdomen and pelvis dated 03/06/2019.. CHEST: THYROID: The thyroid is unremarkable. LUNGS: There are faint tree-in-bud opacities at the right lung base (series 6, images 111 and 114). There are no focal airspace opacities. MEDIASTINUM: There is no mediastinal lymphadenopathy. DEANGELO: Evaluation of the hilar regions is limited by lack of intravenous contrast material. CARDIOVASCULATURE: The heart is normal in size. There is no pericardial effusion. The thoracic aorta is normal in caliber. DEGREE OF CORONARY CALCIFICATION: severe PLEURA: There is no pleural effusion. No pneumothorax. MAIN AIRWAYS: The mainstem bronchi and proximal branches are patent. AXILLA: There is no axillary lymphadenopathy. SOFT TISSUES: Unremarkable. BONES: There is degenerative disc disease of the spine. ABDOMEN: LIVER: The liver is normal in size and contour. There are hypodensities in the left lobe of the liver measuring 1.3 cm in 1.0 cm which likely represent cysts. GALLBLADDER / BILE DUCTS: The gallbladder is unremarkable. There is no intra or extrahepatic biliary ductal dilatation. SPLEEN: The spleen is normal in size and has an unremarkable unenhanced appearance. PANCREAS: The pancreas has an unremarkable unenhanced appearance. ADRENAL GLANDS: Unremarkable. KIDNEYS/RETROPERITONEUM: No renal calculi are identified. There is no hydronephrosis. Tiny hypodensities in the kidneys are too small to accurately characterize. LYMPH NODES: No retroperitoneal lymphadenopathy is identified in the abdomen or pelvis. VASCULATURE: The abdominal aorta demonstrates atherosclerotic calcification, but is normal in caliber. MESENTERY/PERITONEUM: No free fluid. No masses. There is no free intraperitoneal gas. STOMACH: The stomach is collapsed, limiting evaluation. SMALL BOWEL: The small bowel is normal in caliber. COLON: There is a large amount of stool throughout the colon. There is diverticulosis of the entire colon, without evidence of diverticulitis. APPENDIX: Normal. URINARY BLADDER/PELVIC ORGANS: The urinary bladder is unremarkable. The patient is status post hysterectomy. BONES / SOFT TISSUES: No suspicious bony or soft tissue abnormalities. CT/CT abdomen pelvis wo IV con IMPRESSION: No evidence of traumatic injury to the chest, abdomen, or pelvis. Please note that evaluation for solid organ injury is limited by lack of intravenous contrast material. Electronically signed by: Mirza Mir MD 12/08/2024 01:45 PM EDT
--- NOTE | ~2024-12-08 | CT_ITS ---
EXAMINATION: CT ANGIOGRAM HEAD AND NECK CLINICAL INFORMATION: Dizziness, rule out stroke. COMPARISON: None available. TECHNIQUE: Noncontrast axial imaging of the head was performed. This was followed by test bolus sequences and head and neck intravenous bolus administration of 85mL of Omnipaque 350. Helical imaging was performed in the axial plane from the aortic arch to the skull vertex. The data was processed at the principal technologist's workstation for generation of MIP sequences. Angled MIPs and volume rendered reformatted images were also generated at an offline 3D workstation. Stenoses are assessed in accordance with NASCET criteria unless otherwise indicated. This CT examination was performed using dose optimization techniques as appropriate, variously including the following: *Automated exposure control *Adjustment of mA and/or kV according to patient size (this includes techniques or standardized protocols for targeted exams where dose is matched to indication/reason for exam; i.e. extremities or head) *Use of iterative reconstruction technique DLP: 592 mGy*cm FINDINGS: NECK CTA: -AORTIC ARCH: Normal in caliber. Mild atheromatous calcification. -GREAT VESSEL ORIGINS: Widely patent. No stenosis. There is a common origin of left common carotid artery and left subclavian artery. -RIGHT COMMON CAROTID ARTERY: Normal in course and caliber to the level of the bifurcation. -CERVICAL RIGHT INTERNAL CAROTID ARTERY: Normal opacification without focal stenosis or occlusion. -LEFT COMMON CAROTID ARTERY: Normal in course and caliber to the level of the bifurcation. -CERVICAL LEFT INTERNAL CAROTID ARTERY: No hemodynamically significant stenosis. -CERVICAL RIGHT VERTEBRAL ARTERY: Codominant. Normal in course and caliber into the skull base. -CERVICAL LEFT VERTEBRAL ARTERY: Codominant. Normal in course and caliber into the skull base. OTHER, SOFT TISSUES: -No lymphadenopathy or mass. No abnormal fluid collection or soft tissue swelling. -Normal thyroid. -Imaged superior mediastinal structures normal. -Imaged lung apices clear. CTA OF THE BRAIN: -INTRACRANIAL INTERNAL CAROTID ARTERIES: No focal stenosis or occlusion. Multifocal atherosclerotic ossifications. -RIGHT ANTERIOR CEREBRAL ARTERY: Normal A1 segment.. Normal arborization of the distal segments. -LEFT ANTERIOR CEREBRAL ARTERY: Normal A1 segment.. Normal arborization of the distal segments. -ANTERIOR COMMUNICATING ARTERY: Present. -RIGHT MIDDLE CEREBRAL ARTERY: Normal M1 segment of the MCA without focal stenosis or occlusion. Normal bifurcation. Normal arborization of the distal segments. -LEFT MIDDLE CEREBRAL ARTERY: Normal M1 segment of the MCA without focal stenosis or occlusion. Normal arborization of the distal segments. -RIGHT VERTEBRAL ARTERY V4: Normal in course and caliber. Normal PICA branch. -LEFT VERTEBRAL ARTERY V4: Normal in course and caliber. Normal PICA branch. -BASILAR ARTERY: Normal without focal stenosis or occlusion. Normal appearance of the proximal superior cerebellar arteries. Normal basilar tip. -RIGHT POSTERIOR CEREBRAL ARTERY: Normal P1 segment. Normal opacification of the distal [place]ER segments. -LEFT POSTERIOR CEREBRAL ARTERY: The P1 segment is diminutive. Normal opacification of the distal [place]YER segments. -POSTERIOR COMMUNICATING ARTERIES: Present. Normal opacification of the superior sagittal, straight, transverse, and sigmoid sinuses. No venous thrombosis. No space-occupying hemorrhage or definite evolving infarct. CT/CT angio head neck IMPRESSION: CTA NECK: No hemodynamically significant stenosis. CTA HEAD: No hemodynamically significant stenosis. Dr. Paulson notified Electronically signed by: Betito Patel MD 12/08/2024 04:41 PM EDT
--- NOTE | ~2024-12-08 | CT_ITS ---
EXAMINATION: CT CERVICAL SPINE WITHOUT CONTRAST CLINICAL INFORMATION: Fall, head trauma COMPARISON: December 19, 2018 November 09, 2024 TECHNIQUE: Axial imaging was performed from the base of the skull through T2 without IV contrast. Coronal and sagittal reformatted images were generated from the original axial data set. ALARA: The examination used one or more of the following radiation dose reduction techniques: Automated exposure control, iterative reconstruction, and/or adjustment of mA and/or KV. DLP: 225 mGY*cm FINDINGS: Again seen is multilevel degenerative disc disease with uncovertebral and facet arthropathy, most advanced at C5-6. 5 mm lucency in the anterior superior C4 vertebral body has been present and stable since at least 2018. There is no prevertebral edema. No fracture line is identified. Absent left thyroid lobe. Lung apexes are clear. CT/CT cervical spine wo IV con IMPRESSION: Multilevel degenerative disc disease with uncovertebral and facet arthropathy, most advanced at C5-6. No acute abnormality. Electronically signed by: Betito Patel MD 12/08/2024 01:48 PM EDT
--- NOTE | ~2024-12-08 | CT_ITS ---
EXAMINATION: CT HEAD WITHOUT CONTRAST CLINICAL INFORMATION: Fall, head trauma COMPARISON: November 09, 2024 TECHNIQUE: Contiguous axial imaging was performed from the skull base to vertex without intravenous administration of contrast. This CT examination was performed using dose optimization techniques as appropriate, variously including the following: *Automated exposure control *Adjustment of mA and/or kV according to patient size (this includes techniques or standardized protocols for targeted exams where dose is matched to indication/reason for exam; i.e. extremities or head) *Use of iterative reconstruction technique DLP: 585 mGY*cm FINDINGS: There is loss of nguyễn-white matter differentiation and decreased attenuation in the central portion of the left parietal lobe that was not clearly evident on the prior examination. There is no intracranial hemorrhage. There is no mass-effect or midline shift. Basal cisterns and ventricles are within normal limits for age/cerebral volume. Orbits are symmetrical and unremarkable. Paranasal sinuses and mastoid air cells are pneumatized. There are no bony abnormalities. CT/CT head/brain wo IV con IMPRESSION: Possible acute/subacute ischemic change in the left parietal lobe. Dr Paulson notified. Electronically signed by: Betito Patel MD 12/08/2024 01:35 PM EDT
--- NOTE | ~2024-12-08 | MR_ITS ---
CLINICAL HISTORY: ?acute CVA --- Additional Notes or Special Instructions: CT of head showing possible acute subacute ischemic change MRI Brain WO Contrast COMPARISON: CT/AL/SR - CT HEAD/BRAIN WO IV CON - 12/08/24 12:43 EDT MR/AL/SR - MR HEAD/BRAIN WO/W CON - 07/21/24 11:21 EST FINDINGS: No evidence of acute infarction. No acute intracranial hemorrhage. No mass-effect or midline shift. Mild diffuse cortical volume loss. Small nonspecific white matter FLAIR hyperintensities, most commonly associated with chronic microangiopathic changes among other possible etiologies. No hydrocephalus. Clear paranasal sinuses. Small fluid in the bilateral mastoid air cells. Unremarkable orbits. IMPRESSION: No acute intracranial findings. Nonemergent/incidental findings above. This document has been electronically signed by: Ricci William MD on 12/08/2024 20:31:29
--- NOTE | 2024-12-08 11:46 | ED_ITS ---
HPI - Trauma General Chief Complaint: Syncope Stated Complaint: SYNCOPAL EPISODE Time Seen by Provider: 12/08/24 11:09 History of Present Illness ED Provider: Sebastien Paulson MD HPI narrative: Patient is a poor historian she said she was taking her trash out felt she was generally unwell with a mild prodrome of lightheadedness. Woke up on the concrete. IV was placed by EMS she was put in a collar and brought in for evaluation. Triage note reports an increase antidepressant dose unclear which 1. Patient denies any significant injuries pain or chest pain or headache surrounding the event Related Data Home Medications ?Medication ?Instructions ?Recorded ?Confirmed aspirin 81 mg tablet,delayed 81 mg PO DAILY 07/05/20 0 12/08/24 release (Adult Low Dose Aspirin) atorvastatin 80 mg tablet 80 mg PO BEDTIME 12/08/24 clonazepam 0.5 mg tablet 0.5 mg PO BID anxiety/agitat ion 12/08/24 12/08/24 docusate sodium 100 mg capsule 100 mg PO BEDTIME 12/0812/08/24 galcanezumab-gnlm 120 mg/mL 120 mg subcut Q30D 5 12/08/24 subcutaneous pen injector (Emgality Pen) levothyroxine 25 mcg tablet 25 mcg PO DAILY@12/0812/08/24 melatonin 10 mg tablet 10 mg PO BEDTIME 12/08/24 montelukast 10 mg tablet 10 mg PO BEDTIME 12/08/24 risedronate 35 mg tablet 35 mg PO MCKEE@0912/08/24 sertraline 25 mg tablet 50 mg PO DAILY 12/08/2411/11 sumatriptan succinate 100 mg tablet 100 mg PO DAILY GA N Migraine 12/08/24 12/08/24 Headache Previous Rx's ?Medication ?Instructions ?Recorded albuterol sulfate 2.5 mg/3 mL 2.5 mg (3 mL) inhalation QID PRN 02/09/22 (0.083 %) solution for nebulization shortness of breat h or wheezing 90 days #180 mL Lifeline-Mobile unit #1 ea 10/30/22 oxymetazoline 0.05 % nasal spray 2 spray intranasal Q1 2H PRN nasal 10/19/23 (Afrin (oxymetazoline)) congestion 3 days #15 mL fluticasone 250 mcg-salmeterol 50 1 ea inhalation BID 90 days #3 11/27/23 mcg/dose blistr powdr for inhalers inhalation (Giovannaxela Inhub) ezetimibe 10 mg tablet 10 mg PO DAILY #90 tabs 01/09 12/02 albuterol sulfate 90 mcg/actuation 2 puff PO Q6H PRN f or wheezing 04/14/24 aerosol inhaler #6.7 grams cetirizine 10 mg tablet (All Day 10 mg PO DAILY PRN al lergy 05/17/24 Allergy (cetirizine)) symptoms 30 days #30 tabs magnesium oxide 400 mg (241.3 mg 400 mg PO BEDTIME kirill rrhea 90 days 06/25/24 magnesium) tablet #90 tabs riboflavin (vitamin B2) 400 mg 400 mg PO DAILY 90 days #90 tabs 06/25/24 tablet topiramate 100 mg tablet 100 mg PO BID 90 days #180 t abs 06/25/24 folic acid 800 mcg tablet 0.8 mg PO DAILY #90 tabs 09/02 meclizine 25 mg tablet 25 mg PO DAILY PRN dizziness #20 09/13/24 tabs fluticasone propionate 50 1 spray intranasal DAILY 90 days 10/18/24 mcg/actuation nasal #48 grams spray,suspension fludrocortisone 0.1 mg tablet 0.1 mg PO DAILY for bloo d pressure 11/12/24 90 days #90 tabs cholecalciferol (vitamin D3) 50 50 mcg PO DAILY 90 day s #90 caps 11/14/24 mcg (2,000 unit) capsule Allergies Allergy/AdvReac Type Severity Reaction Status Date / Time Penicillins (PENICILLINS) Allergy Intermediate HIVES Verified 12/08/24 11:47 carbamazepine (From Tegretol) Allergy Mild HIVES Verified 12/08/24 11:47 diflunisal (From Dolobid) Allergy Mild HIVES Verified 12/08/24 11:47 erythromycin base (From Allergy Mild HIVES Verified 12/08/24 11:47 Edwin-Tab) phenytoin (From Dilantin) Allergy Mild RASH,HIVES Verified 12/08/24 11:47 piroxicam (From Feldene) Allergy Mild HIVES Verified 12/08/24 11:47 sulfamethoxazole (From Allergy Mild HIVES Verified 12/08/24 11:47 Bactrim) trimethoprim (From Bactrim) Allergy Mild HIVES Verified 12/08/24 11:47 valproic acid (From Depakene) Allergy Mild HIVES Verified 12/08/24 11:47 Depakene Allergy Unknown Rash Verified 12/08/24 11:47 hydrochlorothiazide Allergy Unknown rash Verified 12/08/24 11:47 (HYDROCHLOROTHIAZIDE) lisinopril (LISINOPRIL) Allergy Unknown rash Verified 12/08/24 11:47 codeine (Codeine) AdvReac Intermediate NAUSEA & Verified 12/08/24 11:47 VOMITING rash doxycycline AdvReac Stomach Verified 12/08/24 11:47 Upset ENVIRONMENTAL Allergy Intermediate ASTHMA,LOSES Uncoded 12/08/24 11:47 VOICE TAPE,PLASTIC Allergy Intermediate RASH Uncoded 12/08/24 11:47 surgical tape Allergy Unknown unknown Uncoded 12/08/24 11:47 PMFSH Past Medical History Medical History Falls Anesthesia complication Liver lesion Ingrown toenail Elevated liver enzymes Concussion with loss of consciousness SOB (shortness of breath) Pain of both earlobes Dizziness New onset headache Otitis externa of both ears Acute effusion of right ear Dermatitis Myalgia Headache REM sleep behavior disorder Convulsion disorder COVID-19 Pre-syncope Dyspnea Chest pain Pneumonia Osteoporosis Screening for osteoporosis CKD (chronic kidney disease) Dyslipidemia Hypothyroid Hyperlipemia Ataxic gait Seizures Asthma Depression Conversion disorder HTN (hypertension) Muscle weakness Hypothyroid Conversion disorder with attacks or seizures, acute episode, with psychological stressor Surgical History H/O colonoscopy History of right knee surgery History of lobectomy of thyroid History of arthroscopy of right knee History of ankle surgery History of arthroscopy of left knee History of hysterectomy Family History Family History Father CVD (cardiovascular disease) Stomach ulcer Cardiac arrest H/O heart bypass surgery Mother History of heart attack CHF (congestive heart failure) Lung cancer Diabetes mellitus High cholesterol HTN (hypertension) Hypothyroidism Sister Lung cancer Substance use disorder Brother Colitis Sister No problems noted. Sister Obstetric pulmonary blood clot embolism, antepartum Paternal Aunt Mental health disorder Substance use disorder Maternal Grandmother Mental health disorder Family/Other Substance use disorder Social History Social History Household Members: Family Household Members Other:: brother, 2 cats Housing: House Are you a primary hospice patient care secretary to a significant other at home: No Do you presently have visiting nurse or other home services: No Alcohol intake: never Patient Tobacco Use Status: Never used Tobacco e-Cigarette/Vaping Use: Never Used Second Hand Smoke Exposure: No service: No Current occupational status: disabled Cognitive needs: No Hearing needs: No Vision needs: No Physical Exam 2 Vital Signs: Vital Signs: Last Vital Signs Temp 97.5 F 12/09/24 15:33 Pulse 69 12/09/24 15:33 Resp 18 12/09/24 15:33 BP 109/86 12/09/24 15:33 Pulse Ox 100 12/09/24 15:33 O2 Del Method Room Air 12/09/24 15:33 BMI result Body Mass Index 21.0 Const: Other: Primary Survey: GCS: 15 Airway: Intact airway Breathing: Spontaneous respirations with bilateral breath sounds Circulation: Palpable bilateral carotid, brachial, femoral DP pulses with good skin color and distal perfusion. Disability: No gross paresis of the extremities or obvious focal neuro deficit. E FAST Ultrasound: Not indicated Secondary Survey: GENERAL: Well appearing. No apparent distress. Alert. HEAD The head is atraumatic, without swelling or ecchymosis of the face or behind the ears, including the periorbital area. There is no tenderness to face, and the oral and nasal mucosa are nonbloody. Dentition is intact. The TMs are without hemotympanum. NECK: Cervical collar in place. There is no midline cervical neck tenderness or stepoffs. The patient denies any numbness, tingling, or weakness of the extremities. The patient is able to range their neck completely without midline cervical pain, numbness, tingling, or weakness. EYES: Normal to inspection. Sclera non-icteric. EOMI, Pupils grossly symmetric/reactive. ENMT: External nose normal. No facial depression, gross hemotympanum, epistaxis. RESPIRATORY: Respiratory effort normal. Lungs clear to auscultation bilaterally. CARDIOVASCULAR: Regular rate. Normal rhythm. No murmur. No rubs. GI: Soft, non-tender, non-distended. No rebound or guarding. No masses palpable. No hepatosplenomegaly. No bruising. MSK: Chest Wall: Atraumatic, nontender, no crepitus, seat belt sign or ecchymosis. Back: No ecchymosis, no abrasions or other external signs of trauma, no midline spinal tenderness. Upper Extremities: Atraumatic, no swelling, deformity, focal tenderness, +FROM of all joints. Lower Extremities: Atraumatic, no swelling, deformity, focal tenderness, +FROM of all joints. SKIN: No jaundice. No abrasions, lacerations, or ecchymosis. NEUROLOGICAL: Alert. Comprehensive Neuro exam: Face symmetric, tongue midline, strong symmetric eye closure intact strong face deviation and shoulder shrug. Sensation intact to light touch throughout 5 out of 5 strength in bilateral upper extremities, 5 and 5 strength in lower extremities bilaterally? PSYCHIATRIC: Alert. Appearance appropriate for situation. Attitude cooperative. Medications Administered Generic Name Dose Route Start Last Admin Trade Name Quanq PRN Reason Stop Dose Admin Aspirin 81 mg 12/09/24 09:00 12/09/24 08:09 Aspirin Enteric Coated 81 Mg Tablet. PO 81 mg DAILY ANA Administration Atorvastatin Calcium 80 mg 12/08/24 21:00 12/08/24 20:20 Atorvastatin Calcium 80 Mg Tablet PO 80 mg BEDTIME ANA Administration Clonazepam 0.5 mg 12/08/24 21:00 12/09/24 08:08 Clonazepam 0.5 Mg Tablet PO 0.5 mg BID ANA Administration Docusate Sodium 100 mg 12/08/24 21:00 12/08/24 20:20 Docusate Sodium 100 Mg Capsule PO 100 mg BEDTIME ANA Administration Ezetimibe 10 mg 12/09/24 09:00 12/09/24 08:09 Ezetimibe 10 Mg Tablet PO 10 mg DAILY ANA Administration Fludrocortisone Acetate 0.1 mg 12/09/24 09:00 12/09/24 08:53 Fludrocortisone Acetate 0.1 Mg Tablet PO 0.1 mg DAILY ANA Administration Fluticasone Propionate 1 spray 12/09/24 09:00 12/09/24 08:53 Fluticasone Propionate Nasal 16 Gm [place] NOSTRIL-B 1 spray DAILY ANA Administration Levothyroxine Sodium 25 mcg 12/09/24 06:30 12/09/24 06:20 Levothyroxine Sodium 25 Mcg Tablet PO 25 mcg DAILY@0630 ANA Administration Magnesium Oxide 400 mg 12/08/24 21:00 12/08/24 20:20 Magnesium Oxide 400 Mg Tablet PO 400 mg BEDTIME ANA Administration Montelukast Sodium 10 mg 12/08/24 21:00 12/08/24 20:20 Montelukast Sodium 10 Mg Tablet PO 10 mg BEDTIME ANA Administration Sertraline HCl 50 mg 12/09/24 09:00 12/09/24 08:08 Sertraline Hcl 50 Mg Tablet PO 50 mg DAILY ANA Administration Topiramate 100 mg 12/08/24 21:00 12/09/24 08:08 Topiramate 100 Mg Tablet PO 100 mg BID ANA Administration Vitamin D 50 mcg 12/09/24 09:00 12/09/24 08:08 Cholecalciferol (Vitamin D3) 25 Mcg Tablet PO 50 mcg DAILY AAN Administration Discontinued Medications Generic Name Dose Route Start Last Admin Trade Name Quanq PRN Reason Stop Dose Admin Aspirin 81 mg 12/08/24 18:08 12/08/24 18:43 Aspirin 81 Mg Tab.Chew PO 12/08/24 18:09 81 mg ONCE ONE Administration Iohexol 70 ml 12/08/24 16:24 12/08/24 16:24 Iohexol 350 Mg/Ml 100 Ml Infus..Btl IV 12/08/24 16:25 70 ml ONCE ONE Administration Medical Decision Making Medical Decision Making [facility] Narrative: 69-year-old female with a syncopal event this is a recurrent event. Euvolemic. No actionable finding on the chemistry. No anemia. No bruising or external signs of trauma. Screening CT of the brain for traumatic injuries revealed incidental subacute or acute ischemic change of the left parietal lobe. For this reason I added CT angios which were unremarkable. The patient will need a CVA rule out with telemetry and MR. The patient is amenable to this. No arrhythmias in the ED. Differential Diagnosis Differential Diagnoses: The differential diagnosis associated with the presentation includes Intracranial hemorrhage, syncope possibly cardiac, dysrhythmia, electrolyte derangement, vasovagal, orthostasis. Admission/Observation Consideration of admission/observation: Escalation of care including admission/observation considered Consult Healthcare Provider Management of the patient was discussed with: Hospitalist Lab Data [facility] Lab Attestation statement: I reviewed the patient's lab results. 12/08/24 12:16 12/08/24 12:16 Labs: Lab Results 12/08/24 Range/Units 12:16 WBC 5.6 (4.8-10.8) X10*3/uL RBC 3.92 L (4.20-5.50) X10*6/uL Hgb 12.1 (12.0-16.0) g/dl Hct 37.1 (37.0-47.0) % MCV 94.6 (80.0-98.0) fL MCH 30.9 (27.0-33.0) pg MCHC 32.6 (31.0-35.0) g/dl RDW 14.3 (11.0-16.0) % Plt Count 249 (160-400) X10*3/uL MPV 9.6 (9.4-12.3) fL Immature Gran % (Auto) 0.4 (0.0-0.4) % Neut % (Auto) 57.5 (45-73) % Lymph % (Auto) 25.0 (20-40) % [place] % (Auto) 11.2 H (2-11) % Eos % (Auto) 4.8 H (0-4) % Baso % (Auto) 1.1 (0-2) % Lymph # (Auto) 1.4 (1.2-4.9) X10*3/uL [place] # (Auto) 0.6 (0.1-1.2) X10*3/uL Eos # (Auto) 0.3 (0.0-0.4) X10*3/uL Baso # (Auto) 0.1 (0.0-0.2) X10*3/uL Abs Immat Gran (auto) 0.02 (0.00-0.03) X10*3/uL Absolute Neuts (auto) 3.2 (2.0-8.3) x10*3/uL Absolute Nucleated RBC 0.000 (0.0-0.012) X10*3/uL Nucleated RBC % (auto) 0.0 (0.0-0.2) /100WBC Sodium 142 (135-145) mmol/L Potassium 3.9 D (3.3-5.1) mmol/L Chloride 114 H (96-108) mmol/L Carbon Dioxide 22 (22-29) mmol/L Anion Gap 10 L (12-20) BUN 19 H (9-16) mg/dL Creatinine 0.94 (0.5-1.4) mg/dL Estim Creat Clear Calc 44.0 Estimated GFR 59 Random Glucose 84 (60-115) mg/dL Calcium 8.9 (8.4-10.2) mg/dL Total Bilirubin 0.2 (0.0-1.0) mg/dL AST 30 (5-31) U/L ALT 20 (0-31) U/L Alkaline Phosphatase 66 (39-117) U/L Total Creatine Kinase 79 (26-140) U/L Troponin I High Sens < 2.7 (<3.5-17.0) ng/L Total Protein 5.9 L (6.5-8.0) g/dL Albumin 3.5 (3.5-5.0) g/dL Triglycerides 46 (<150) mg/dL Cholesterol 152 (<200) mg/dL LDL Cholesterol, Calc 66 (<100) mg/dL HDL Cholesterol 77 (>40) mg/dL Independent Interpretation I performed an independent interpretation of an: EKG (1224: Sinus rhythm rate 70 QTC 429. No acute ischemic changes normal intervals and axis.) Radiology Impression Discussion of test interpretation with radiology: I have reviewed the radiologist's reading. (Case discussed with the radiologist) Discharge Plan Discharge Clinical Impression: CVA (cerebrovascular accident) Patient Disposition: Admitted As Inpatient Interventions: Admission Worksheet (ED) Last Done: 12/09/24 07:39 Discharge Date/Time: 12/09/24 09:16
--- NOTE | 2024-12-08 12:08 | ECG_ITS ---
Test Reason : SYNCOPE Blood Pressure : */* mmHG Vent. Rate : 70 BPM Atrial Rate : 70 BPM P-R Int : 168 ms QRS Dur : 88 ms QT Int : 398 ms P-R-T Axes : 69 47 53 degrees QTcB Int : 429 ms Normal sinus rhythm Normal ECG When compared with ECG of 21-Aug-2024 14:26, No significant change was found Referred By: Sebastien Paulson Electronically Signed By: TABITHA CORRIGAN MD
[2024-12-08 12:24] LABS: MANUAL DIFF FLAG NO
[2024-12-08 12:28] LABS: Hematocrit 37.1 % (37.0-47.0); Hemoglobin 12.1 g/dl (12.0-16.0); Imm Gran Abs Auto 0.02 X10*3/uL (0.00-0.03); Imm Gran Pct Auto 0.4 % (0.0-0.4); Lymphocytes Absolute Auto 1.4 X10*3/uL (1.2-4.9); Mean Corpuscular HGB Conc 32.6 g/dl (31.0-35.0); Mean Corpuscular Hemoglobin 30.9 pg (27.0-33.0); Mean Corpuscular Volume 94.6 fL (80.0-98.0); NRBC Abs Auto 0.000 X10*3/uL (0.0-0.012); NRBC Pct Auto 0.0 /100WBC (0.0-0.2); Platelet Count 249 X10*3/uL (160-400); Red Blood Count 3.92 X10*6/uL (4.20-5.50); White Blood Count 5.6 X10*3/uL (4.8-10.8)
[2024-12-08 12:39] LABS: Alanine Aminotransferase 20 U/L (0-31); Albumin Level 3.5 g/dL (3.5-5.0); Alkaline Phosphatase 66 U/L (39-117); Anion Gap 10 (12-20); Aspartate Amino Transferase 30 U/L (5-31); Blood Urea Nitrogen 19 mg/dL (9-16); Calcium 8.9 mg/dL (8.4-10.2); Carbon Dioxide 22 mmol/L (22-29); Chloride 114 mmol/L (96-108); Creatinine Clr Calc Pharmacy 44.0; Estimated Glomerular Filt Rate 59; Potassium 3.9 mmol/L (3.3-5.1); Sodium 142 mmol/L (135-145); Total Protein 5.9 g/dL (6.5-8.0)
--- OUTSIDE RECORDS SUMMARY | 2024-12-08 12:39 | XMS_ITS | Patient Health Record ---
Author Organization [facility] Address [address] [place] [address] Care Team Providers Care Electric Meter Tester Name Role Phone Case Duff Primary Care Provider Sebastien Byrnes Unavailable [phone] GABRIELLE BOO Unavailable [phone] Allergies Allergen (clinical drug ingredient) Drug/Non Drug Allergy documented on EMR Reaction Allergy Type Onset Date Status sulfamethoxazole / trimethoprim Bactrim Unknown Drug Allergy Active carbamazepine Carbamazepine Unknown Drug Allergy Active valproate Depakote Unknown Drug Allergy Active Diflunisal Unknown Drug Allergy Active phenytoin Dilantin Unknown Drug Allergy Active erythromycin Erythromycin Unknown Drug Allergy A ctive piroxicam Feldene Unknown Drug Allergy Active hydrochlorothiazide Hydrochlorothiazide Unknown Drug Aller gy Active Lisinopril Unknown Drug Allergy Active penicillamine Penicillamine Unknown Drug Allergy Active piroxicam Piroxicam Unknown Drug Allergy Active sulfacetamide Sulfacetamide Sodium Unknown Drug Allergy Active carbamazepine TEGretol Unknown Drug Allergy Act roopa trimethoprim Trimethoprim Unknown Drug Allergy A ctive codeine Codeine Unknown Drug Allergy Active Tape Unknown Allergy Active diflunisal Dolobid Unknown Drug Allergy Active Reason For Referral No Information Medications Medication SIG (Take, Route, Frequency, Duration) Notes Start Date End Date Status MiraLax 17 GM 1 packet mixed with 8 ounces of fluid Orally Once a day Active FLUoxetine HCl 20 MG 2 capsules once a day for 7 days, 1 capsule once a day for 7 days Oral; Duration: 14 days discontinue after 14 days Active Alendronate Sodium A ctive Vitamin D3 25 MCG (1000 UT) 1 capsule Or ally Once a day; Duration: 30 day(s) Active Vitamin B2 Active Topiramate 100 MG 1 tablet Orally twic e a day Active Albuterol Sulfate HFA 108 (90 Base) MCG/ACT 1 puff as needed Inhalation every 4 hrs Active Acetaminophen 325 MG 1 tablet as needed Orally every 4 hrs 01/22/2020 Active Advair Diskus 250-50 MCG/DOSE as directed Inhalation 01/22/2020 Activ e Albuterol Sulfate (2.5 MG/3ML) 0.083% 3 mL as needed Inhalation every 6 hrs Active ProAir HFA 108 (90 Base) MCG/ACT 2 puffs Inhalation every 4 hrs As needed Active Sertraline HCl 25 MG as directed Orally 1 per day for 14 days and 2 daily thereafter; Duration: 30 days 11/20/2024 Active Meclizine HCl 25 MG 1 tablet as needed Orally every 12 hrs Active SUMAtriptan Succinate 100 MG 1 tablet as needed, may take second dose at least 2 hours after first dose up to 2 tablets per day as needed Orally Once a day Active Atorvastatin Calcium 40 MG 1 tablet Oral ly twice a day; Duration: 30 days Active Colace 100 MG 1 capsule as needed Orally Once a day; Duration: 30 day(s) Active Magnesium Oxide 400 MG 1 tablet with kesha d Orally twice a day Active Anbesol 10 % 1 application as nee ded Mouth/Throat Four times a day Active Aspir-81 Active Melatonin 5 MG 1 tablet in the even ing Orally Once a day; Duration: 30 day(s) Active Singulair 10 MG 1 tablet Orally Once a day; Duration: 30 day(s) Active KlonoPIN 0.5 MG 1 tablet at bedtime Orally Once a day Active Levothyroxine Sodium 25 MCG 1 tablet in the morning on an empty stomach Orally Once a day; Duration: 30 days Active Flonase Allergy Relief 50 MCG/ACT 1 spray in each nostril Nasally Once a day; Duration: 30 day(s) Active Fludrocortisone Acetate 0.1 MG 2 tablets Orally daily Activ e Social History Tobacco Use: Social History Observation [...] seizures or convulsions (F44.5) Active confirmed Problem Mood disorder (89903582) Mood disorder (F39) Active confirmed Problem Seizure disorder (588558413) Seizure disorder (G40.909) Active confirmed Problem Sleep disturbance (68524646) Sleep disturbance, unspecified (G47.9) Active confirmed Vital Signs Heart Rate 79 /min 11/20/2024 Blood pressure diastolic 75 mm Hg 11/20/2024 Height 60 in 11/20/2024 Blood pressure systolic 129 mm Hg 11/20/2024 Weight 115 lbs 11/20/2024 BMI 22.46 kg/m2 11/20/2024 Encounters Encounter Location Date Provider Diagnosis [address] [address] 11/20/2024 Sebastien Myrick 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 Information about FND again described and education provided today. Patient is recommended to continue to see her psychotherapist regularly. We will see if Dr. Boo, and FND specialist here at [facility], has availability to also evaluate and perhaps help manage this patient. In the meantime patient is endorsing symptoms of depression which are likely contributing to some of the described neurologic complaints as well. With this in mind as an initial step in therapy we will cross-taper from Prozac to sertraline. Common side effects and risks were reviewed in detail with the patient and her brother. To be safe we will also get an updated MRI of the brain and plan to meet again in about 6 weeks to reassess and determine next steps. If any symptoms suddenly change or worsen in between visits I have asked to be notified. 11/20/2024 Sleep disturbance, unspecified (ICD-10 - G47.9) 11/20/2024 Seizure disorder (ICD-10 - G40.909) 11/20/2024 Mood disorder (ICD-10 - F39) Plan Of Treatment Pending Test Test Name Order Date MR-Brain (C-) CPT 70161 11/20/2024 Next Appt Details Provider Name:Falguni Rehman heidy, 01/08/2025 03:30:00 PM, [address] [facility] [address], [place], [address], Insurance Providers Payer Name Payer Address Payer Phone Subscriber Number Group Number Insured Name Patient Relationship to Insured Coverage Start Date Coverage End Date [facility] [address] [place] [address] [id number] Sarahy Neves Self - patient is the insured MEDICARE [address] [facility] [place] [id number] Sarahy Neves Self - patient is the insured [facility] [address] [place] [address] [id number] Sarahy Neves Self - patient is the insured Medical (General) History Medical History History ICD Code thyroid cancer hypothyroidism vitamin d deficiency hyperlipidemia major depressive disorder anxiety conversion disorder orthostatic hyoptension mild cognitive impairment other sezuire essential hypertension asthma Surgical History Surgery Date(Month/Year) complete hysterectomy 02/28/2000 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
[2024-12-08 12:49] LABS: Troponin-I High Sensitivity < 2.7 ng/L (<3.5-17.0)
--- NOTE | 2024-12-08 14:40 | PM.IMHP ---
History of Present Illness Date of Service: 12/08/24 Attending physician on admission: Gwyn Sosa Chief Complaint: Syncopal episode Pt is a 69-year-old female with a PMH significant for?asthma, HLD, hypothyroidism, migraines, osteoporosis, conversion disorder follows with neurology, and mood disorder who presents to the ED after witnessed syncopal episode earlier this afternoon. 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 The worker walked her back to her home when apparently she lost consciousness as she was crossing the threshold into her apartment. Pt does not remember any other details around the event; denies lightheadedness/dizziness/headache prior to the episode. Unclear whether pt had head strike, though EMS reports she was lowered to the ground by the worker. Pt initially complained of neck and lower back pain post fall. Was placed in a collar and brought to the ED for further evaluation. Currently pt reports feeling better, though reports chronic difficulty wall and gain and feeling off balance. States had an episode or 2 of left-sided chest pain last night and earlier this morning. Mild headache, but denies any known hemiparesis. Denies any acute vision changes. No fever, chills, nausea, vomiting, abdominal pain. Denies shortness or breath or difficulty breathing. Pt reports he has had a longstanding hx with recent falls and multiple hospitalizations with essentially negative workup. Follows with Neurology and currently carries a diagnosis of conversion disorder. In the ED pt was hypertensive to 166/95, vitals otherwise stable and WNL. Labs were grossly unremarkable and around baseline for pt. No leukocytosis. Stable H&H. No significant electrolyte abnormalities. Renal and hepatic function baseline. Troponin negative. CT of head showed possible acute/subacute ischemic change in the left parietal lobe. CTA of head/neck without hemodynamically significant stenosis of either head or neck. CT of cervical spine negative for acute abnormality, though showed multilevel degenerative disc disease. Chest and abd/pelvis CT negative for traumatic injury to chest, abdomen, or pelvis. EKG demonstrated normal sinus rhythm without evidence of significant ST elevations or depressions. Pt is admitted to the hospital for treatment and further evaluation of syncopal episode concerning for acute CVA. Review of Systems Review of Systems: Negative except for that which is stated in the HPI. [facility] Medical History Falls Anesthesia complication Liver lesion Ingrown toenail Elevated liver enzymes Concussion with loss of consciousness SOB (shortness of breath) Pain of both earlobes Dizziness New onset headache Otitis externa of both ears Acute effusion of right ear Dermatitis Myalgia Headache REM sleep behavior disorder Convulsion disorder COVID-19 Pre-syncope Dyspnea Chest pain Pneumonia Osteoporosis Screening for osteoporosis CKD (chronic kidney disease) Dyslipidemia Hypothyroid Hyperlipemia Ataxic gait Seizures Asthma Depression Conversion disorder HTN (hypertension) Muscle weakness Hypothyroid Conversion disorder with attacks or seizures, acute episode, with psychological stressor Family History Father CVD (cardiovascular disease) Stomach ulcer Cardiac arrest H/O heart bypass surgery Mother History of heart attack CHF (congestive heart failure) Lung cancer Diabetes mellitus High cholesterol HTN (hypertension) Hypothyroidism Sister Lung cancer Substance use disorder Brother Colitis Sister No problems noted. Sister Obstetric pulmonary blood clot embolism, antepartum Paternal Aunt Mental health disorder Substance use disorder Maternal Grandmother Mental health disorder Family/Other Substance use disorder Surgical History H/O colonoscopy History of right knee surgery History of lobectomy of thyroid History of arthroscopy of right knee History of ankle surgery History of arthroscopy of left knee History of hysterectomy Social History Household Members: Family Household Members Other:: brother, 2 cats Housing: House Are you a primary day care worker to a significant other at home: No Do you presently have visiting nurse or other home services: No Alcohol intake: never Patient Tobacco Use Status: Never used Tobacco Smoked in Last 30 Days: No e-Cigarette/Vaping Use: Never Used Second Hand Smoke Exposure: No Use of substances other than those prescribed or required for medical reasons: No Advance Directives: No Advance Directives Information Provided: Yes Do you have a plan to hurt others: No Plan Nutrition Risks: No Nutritional Risk Current occupational status: disabled Cognitive needs: No Hearing needs: No Vision needs: No Meds Allergies Allergy/AdvReac Type Severity Reaction Status Date / Time Penicillins (PENICILLINS) Allergy Intermediate HIVES Verified 12/08/24 11:47 carbamazepine (From Tegretol) Allergy Mild HIVES Verified 12/08/24 11:47 diflunisal (From Dolobid) Allergy Mild HIVES Verified 12/08/24 11:47 erythromycin base (From Allergy Mild HIVES Verified 12/08/24 11:47 Edwin-Tab) phenytoin (From Dilantin) Allergy Mild RASH,HIVES Verified 12/08/24 11:47 piroxicam (From Feldene) Allergy Mild HIVES Verified 12/08/24 11:47 sulfamethoxazole (From Allergy Mild HIVES Verified 12/08/24 11:47 Bactrim) trimethoprim (From Bactrim) Allergy Mild HIVES Verified 12/08/24 11:47 valproic acid (From Depakene) Allergy Mild HIVES Verified 12/08/24 11:47 Depakene Allergy Unknown Rash Verified 12/08/24 11:47 hydrochlorothiazide Allergy Unknown rash Verified 12/08/24 11:47 (HYDROCHLOROTHIAZIDE) lisinopril (LISINOPRIL) Allergy Unknown rash Verified 12/08/24 11:47 codeine (Codeine) AdvReac Intermediate NAUSEA & Verified 12/08/24 11:47 VOMITING rash doxycycline AdvReac Stomach Verified 12/08/24 11:47 Upset ENVIRONMENTAL Allergy Intermediate ASTHMA,LOSES Uncoded 12/08/24 11:47 VOICE TAPE,PLASTIC Allergy Intermediate RASH Uncoded 12/08/24 11:47 surgical tape Allergy Unknown unknown Uncoded 12/08/24 11:47 Home Medications ?Medication ?Instructions ?Recorded ?Confirmed ?Last Taken ?Type aspirin 81 mg tablet,delayed 81 mg PO DAILY 07/05/20 12/08/24 Unknown History release (Adult Low Dose Aspirin) atorvastatin 80 mg tablet 80 mg PO BEDTIME 12/08/24 12/08/24 Unknown History clonazepam 0.5 mg tablet 0.5 mg PO BID anxiety/agitation 12/08/24 12/08/24 Unknown History docusate sodium 100 mg capsule 100 mg PO BEDTIME 12/08/24 12/08/24 Unknown History galcanezumab-gnlm 120 mg/mL 120 mg subcut Q30D 12/08/24 12/08/24 Unknown History subcutaneous pen injector (Emgality Pen) levothyroxine 25 mcg tablet 25 mcg PO DAILY@0612/08/24 12/08/24 Unknown History melatonin 10 mg tablet 10 mg PO BEDTIME 12/08/24 12/08/24 Unknown History montelukast 10 mg tablet 10 mg PO BEDTIME 12/08/24 12/08/24 Unknown History risedronate 35 mg tablet 35 mg PO MCKEE@0900 12/08/24 12/08/24 Unknown History sertraline 25 mg tablet 50 mg PO DAILY 12/08/24 12/08/24 Unknown History sumatriptan succinate 100 mg tablet 100 mg PO DAILY PRN Migraine 12/08/24 12/08/24 Unknown History Headache Physical Exam Vital Signs and Narrative: Vital Signs: Last Vital Signs Temp 97.6 F 12/08/24 14:32 Pulse 68 12/08/24 14:32 Resp 18 12/08/24 14:32 BP 166/95 H 12/08/24 14:32 Pulse Ox 98 12/08/24 14:32 O2 Del Method Room Air 12/08/24 14:32 BMI result Body Mass Index 21.0 General: AOx3, no acute distress. Appears frail. Resp: CTA bilaterally CVS: S1, S2, RRR GI: +BS, NT, no distention Skin: Warm, dry Neuro: Positive right pronator drift. Global generalized weakness, though appears greater in left upper and lower extremity. Reduced sensation of light touch of right face, upper extremity, and lower extremity. Face appears full and symmetric. Pt exhibits difficulty word finding, delayed response, and some stuttering. Extremities: No edema Psych: Appropriate affect Results Labs 12/08/24 12:16 12/08/24 12:16 Labs: Laboratory Results - last 24 hr 12/08/24 12:16 MCV 94.6 MCH 30.9 MCHC 32.6 RDW 14.3 Plt Count 249 MPV 9.6 Immature Gran % (Auto) 0.4 Neut % (Auto) 57.5 Lymph % (Auto) 25.0 Benzie % (Auto) 11.2 H Eos % (Auto) 4.8 H Baso % (Auto) 1.1 Lymph # (Auto) 1.4 Benzie # (Auto) 0.6 Eos # (Auto) 0.3 Baso # (Auto) 0.1 Abs Immat Gran (auto) 0.02 Absolute Neuts (auto) 3.2 Absolute Nucleated RBC 0.000 Nucleated RBC % (auto) 0.0 Anion Gap 10 L Estim Creat Clear Calc 44.0 Estimated GFR 59 Random Glucose 84 Calcium 8.9 Total Bilirubin 0.2 AST 30 ALT 20 Alkaline Phosphatase 66 Troponin I High Sens < 2.7 Total Protein 5.9 L Albumin 3.5 Imaging Radiologist's Impressions: Impressions Cervical Spine CT 12/08/24 12:43 IMPRESSION: Multilevel degenerative disc disease with uncovertebral and facet arthropathy, most advanced at C5-6. No acute abnormality. Electronically signed by: Betito Patel MD 12/08/2024 01:48 PM EDT RP Head CT 12/08/24 12:43 IMPRESSION: Possible acute/subacute ischemic change in the left parietal lobe. Dr Paulson notified. Electronically signed by: Betito Patel MD 12/08/2024 01:35 PM EDT RP Abdomen/Pelvis CT 12/08/24 12:45 IMPRESSION: No evidence of traumatic injury to the chest, abdomen, or pelvis. Please note that evaluation for solid organ injury is limited by lack of intravenous contrast material. Electronically signed by: Mirza Mir MD 12/08/2024 01:45 PM EDT RP Chest CT 12/08/24 12:45 IMPRESSION: No evidence of traumatic injury to the chest, abdomen, or pelvis. Please note that evaluation for solid organ injury is limited by lack of intravenous contrast material. Electronically signed by: Mirza Mir MD 12/08/2024 01:45 PM EDT RP Assessment and Plan (1) Syncope: Status: Inactive Plan Pt is a 69-year-old female with a PMH significant for?asthma, HLD, hypothyroidism, migraines, osteoporosis, conversion disorder follows with neurology, and mood disorder who presents to the ED after witnessed syncopal episode earlier this afternoon. Pt is admitted to the hospital for treatment and further evaluation of syncopal episode concerning for acute CVA. Syncopal episode Concerning for acute CVA vs conversion disorder CT of head showing possible acute/subacute ischemic changes in the left parietal lobe CT of cervical spine, chest, abdomen/pelvis, and CTA of head/neck negative for acute abnormalities Pt with positive right pronator drift, right-sided weakness, and right-sided diminished sensation to light touch Will check MRI of head/brain Consider echocardiogram depending on MRI results Continue aspirin, statin Neurology consult PT/OT evaluation Monitor on telemetry Asthma Not in acute exacerbation Continue home inhalers HLD Continue statin, ezetimibe Hypothyroidism Continue levothyroxine Migraines Continue topiramate, sumatriptan Mood disorder Continue mood stabilizers Full Code Attending:? DVT Prophylaxis: Lovenox Pt will require a hospitalization of at least two nights for treatment of?syncopal episode with imaging concerning for acute/subacute CVA. pt will require hospital level care for additional workup with specialist consultation and MRI, as well as close monitoring of neurologic and cardiac function. Quality Stroke Does the patient have a stroke diagnosis?: No VTE Prior VTE?: No VTE Risk Level:: Medical - moderate - high VTE Device Contraindication: Treatment Not Indicated VTE Drug Contraindication: N/A - Med Ordered
[2024-12-08 15:10] LABS: Cholesterol 152 mg/dL (<200); HDL Cholesterol 77 mg/dL (>40); Triglycerides 46 mg/dL (<150)
--- NOTE | 2024-12-08 15:45 | PHA.MEDREC ---
Pharmacy Consult ? Medication Reconciliation Pharmacy has completed the medication reconciliation.Spoke with patient in ED , patient had list and fills all andrea her meds at [facility]
[2024-12-08] MEDS: iohexoL 350 MG/ML 100 ML INFUS..BTL 70 ML IV (16:24)
--- NOTE | 2024-12-08 17:24 | PC.NURSE ---
DEANNE form completed and faxed.
[2024-12-08 17:29] LABS: Appearance Urine Clear; Glucose Urine UA Negative (Negative); PH 6.5 (5.0-9.0); Specific Gravity - Urine >= 1.030 (1.005-1.025); UMIC TRIGGER UACC YES
[2024-12-08 17:32] LABS: UACC Culture Trigger YES
--- NOTE | 2024-12-08 18:51 | PC.NURSE ---
Pt ambulatory with unsteady gait to the bathroom. 1:1 assist.
--- NOTE | 2024-12-08 20:51 | PC.NURSE ---
pt able to speak in full sentences, extremities equal, no facial drip, pt able to speak in full sentences, pt able to swallow medication whole.
--- NOTE | 2024-12-08 21:53 | PC.NURSE ---
pure wick placed, pt unsteady when attempting to ambulate to the bathroom with one assist.
--- NOTE | 2024-12-08 23:15 | PC.NURSE ---
pt is sleeping at this time.
[2024-12-09] VITALS (8 sets, daily range): BP systolic 104–157; BP diastolic 50–86; PULSE 53–78; RESP 13–18; TEMP 36.2–36.7; O2SAT 97–100; BMI 22.7; BMI 22.8
--- NOTE | 2024-12-09 06:31 | PC.NURSE ---
pt resting in bed.
--- NOTE | 2024-12-09 07:00 | CA_ITS ---
Transthoracic Echocardiogram Patient (Last, First, Middle): Sarahy Neves Marie Gender: Female Date of : 1955 Age: 69 Procedure Date: 12/09/2024 Procedure Type: Transthoracic Echocardiogram Location: [facility] [place] Height: 157.48 cm Weight: 52.16 kg BSA: 1.51 m2 Heart Rate: bpm BP: 122 / 62 mmHg Lead Mason Tender: ALONSO Referring MD: Michael BRITTON Smelter Liner: Foreign Butler MD Symptoms: Syncope, concern for CVA Study Quality: Adequate ECG Rhythm: Sinus Conclusions: - 1. Low normal LV ejection fraction 50-55% with impaired relaxation filling pattern 2. Normal cardiac valvular Dopplers 3. Normal RV systolic pressure 4. No gross pericardial effusion Findings Left Ventricle Normal left ventricular cavity size. There is normal left ventricular wall thickness. The left ventricular systolic function is low normal. The visually estimated ejection fraction is between 50-55%. Spectral Doppler is indicative of an impaired relaxation filling pattern. E/E prime ratio is between 8 and 15 consistent with indeterminate filling pressures. Wall Motion Rest Echo Findings The basal inferior and basal anteroseptal segments are hypokinetic. The basal inferoseptal segment is akinetic. All other scored wall segments showed normal motion. Right Ventricle Normal right ventricular cavity size. There is low normal right ventricular systolic function. Atria Both atria are normal in size. There is lipomatous hypertrophy of the interatrial septum. There is no evidence of interatrial shunt by agitated saline. Aortic Valve Normal aortic valve structure and function. There is no aortic valve stenosis. There is no aortic valve regurgitation. Mitral Valve Normal mitral valve structure and function. There is trace mitral valve regurgitation. There is no mitral valve stenosis. Pulmonic Valve The pulmonic valve is likely normal. There is trace pulmonic valve regurgitation. Tricuspid Valve Normal tricuspid valve structure. There is trace tricuspid valve regurgitation. The right ventricular systolic pressure is 20 mmHg. Normal right atrial pressure. There is no evidence of pulmonary hypertension. Great Vessels The aorta was not well visualized. The pulmonary artery was not well visualized. Small plaque is seen in the sino tubular ridge. Venous The inferior vena cava is normal in size and collapses greater than 50% with inspiration. Pericardium/Pleural There is no evidence of pericardial effusion. Prior Study Comparison Changes noted compared to prior study dated: 10/03/2017. LV ejection fraction is that low end of normal with possible regional wall motion abnormality Measurements 2D Linear Measurements IVSd: 0.75 0.6-0.9/0.6-1.0 cm LVIDd: 4.35 3.9-5.3/4.2-5.9 cm LVIDd Index: 2.88 2.4-3.2/2.2-3.1 cm/m2 LVIDs: 2.99 2.0-3.6 cm LVPWd: 0.64 0.7-1.1 cm LA Diam: 3.00 2.7-3.8/3.0-4.0 cm LAIDs Index: 1.99 1.5-2.3 cm/m2 LV Mass: 111.49 67-162/88-224 g LV Mass Index: 73.83 43-95/49-115 g/m2 LVOT Diam: 1.90 3.0+(-)1.3 cm 2D Systolic Function EF 4C: 51.00 >55% EF 2C: 53.10 >55% EF BiP: 51.50 >55% Mitral Valve MV Pk E: 0.69 MV PK A: 0.77 MV Decel Time: 236.00 E/A: 0.90 E'Lateral: 2.94 E'Medial: 4.57 E/E' Med: 15.20 E/E' Lat: 23.60 PHT: 69.00 MVA PHT: 3.19 Decel Ciales: 2.94 Aortic Valve AoV Pk Silverio: 1.02 AoV Pk Grad: 4.00 LVOT LVOT Pk Silverio: 0.67 LVOT Mn Silverio: 0.50 LVOT VTI: 0.18 LVOT Pk Grad: 2.00 LVOT Mn Grad: 1.00 LVOT Diam: 1.90 LVOT Area: 2.84 Diastolic Function MV Pk E: 0.69 MV Pk A: 0.77 E/A: 0.90 E'Medial: 4.57 E/E' Med: 15.20 E' Laterial: 2.94 E/E' Lat: 23.60 Right Ventricle TAPSE (mm): 17.10 TVS' Silverio: 7.62 Tricuspid Valve TR Pk Silverio: 2.09 TR Pk Grad: 17.00 RA Press: 3.00 RVSP: 20.00 Great Vessels Aorta Sinus of Valsalva: 2.50 2.0-3.5 cm Pulmonary Veins Pulm Vein S/D 1.40 Pulmonary Valve PV Pk Silverio: 0.70 Peak PV Grad: 2.00 Updated in Other Vendor System with Status of Final Foreign Butler MD electronically signed on 12/09/2024 11:37:56 AM with status of Final
--- NOTE | 2024-12-09 07:36 | PC.NURSE ---
This RN assumed care of patient @ 0700. Patient A&O x 3. 18G in left AC - patent. Patient denies pain, SOB, fever/chills. Patient able to transfer 1 assist to commode. Patient reports dizziness upon standing. VSS and up to date. Awaiting bed placement.
[2024-12-09] MEDS: Aspirin Enteric Coated 81 MG TABLET.DR PO (08:09)
--- NOTE | 2024-12-09 12:29 | MHC.CM.PN ---
IMM 12/09/24, Pt lives with her brother, she does not use home health services or DME. PCP is confirmed: Case Duff, HCP is on file and confirmed: Nohelia. Pt can arrange a ride home at [place]. DCP: PT and OT rec STR. CM to follow for DC needs.
--- NOTE | 2024-12-09 14:11 | P.PNIM_ITS ---
Subjective Subjective Date of Service: 12/09/24 Interval History: No acute issues overnight. No further syncopal episodes Review of Systems Denies chest pain Denies shortness of breath Denies nausea vomiting diarrhea Denies fever chills Physical Exam 2 Vital Signs: Vital Signs: Last Vital Signs Temp 97.2 F 12/09/24 12:00 Pulse 53 12/09/24 12:00 Resp 18 12/09/24 12:00 BP 157/72 H 12/09/24 12:00 Pulse Ox 97 12/09/24 12:00 O2 Del Method Room Air 12/09/24 12:00 BMI result Body Mass Index 22.7 Const: Other: Awake alert no acute distress Resp: Other: Clear to auscultation bilaterally no rales rhonchi or wheezes Cardio: Other: No S4; positive S1-S2; no S3 murmurs rubs or gallops GI: Other: Soft nontender nondistended normoactive bowel sounds Extrem: Other: No edema bilaterally Objective Data Active Medications Albuterol Sulfate (Albuterol Sulfate (0.083%) 2.5 Mg/3 Ml Vial.Neb) 2.5 mg INHALE QID PRN PRN Reason: shortness of breath or wheezing Albuterol Sulfate (Albuterol Sulfate 90 Mcg 8 Gm Inhaler) 2 puff INHALE Q6H PRN PRN Reason: for wheezing Aspirin (Aspirin Enteric Coated 81 Mg Tablet.) 81 mg PO DAILY [facility] Last Admin: 12/09/24 08:09 Dose: 81 mg Documented By: NAJMA Atorvastatin Calcium (Atorvastatin Calcium 80 Mg Tablet) 80 mg PO BEDTIME [facility] Last Admin: 12/08/24 20:20 Dose: 80 mg Documented By: MAYDA Clonazepam (Clonazepam 0.5 Mg Tablet) 0.5 mg PO BID [facility] Last Admin: 12/09/24 08:08 Dose: 0.5 mg Documented By: NAJMA Docusate Sodium (Docusate Sodium 100 Mg Capsule) 100 mg PO BEDTIME [facility] Last Admin: 12/08/24 20:20 Dose: 100 mg Documented By: MAYDA Ezetimibe (Ezetimibe 10 Mg Tablet) 10 mg PO DAILY [facility] Last Admin: 12/09/24 08:09 Dose: 10 mg Documented By: NAJMA Fludrocortisone Acetate (Fludrocortisone Acetate 0.1 Mg Tablet) 0.1 mg PO DAILY [facility] Last Admin: 12/09/24 08:53 Dose: 0.1 mg Documented By: NAJMA Fluticasone Propionate (Fluticasone Propionate Nasal 16 Gm [place]) 1 spray NOSTRIL-B DAILY [facility] Last Admin: 12/09/24 08:53 Dose: 1 spray Documented By: NAJMA Levothyroxine Sodium (Levothyroxine Sodium 25 Mcg Tablet) 25 mcg PO DAILY@0630 [facility] Last Admin: 12/09/24 06:20 Dose: 25 mcg Documented By: MAYDA Loratadine (Loratadine 10 Mg Tablet) 10 mg PO DAILY PRN PRN Reason: allergy symptoms Magnesium Oxide (Magnesium Oxide 400 Mg Tablet) 400 mg PO BEDTIME [facility] Last Admin: 12/08/24 20:20 Dose: 400 mg Documented By: MAYDA Meclizine HCl (Meclizine Hcl 25 Mg Tablet) 25 mg PO DAILY PRN PRN Reason: dizziness Montelukast Sodium (Montelukast Sodium 10 Mg Tablet) 10 mg PO BEDTIME [facility] Last Admin: 12/08/24 20:20 Dose: 10 mg Documented By: MAYDA Oxymetazoline HCl (Oxymetazoline Hcl 0.05 % Nasal 15 Ml [place]) 2 spray NOSTRIL- B Q12H PRN PRN Reason: Nasal Congestion Sertraline HCl (Sertraline Hcl 50 Mg Tablet) 50 mg PO DAILY [facility] Last Admin: 12/09/24 08:08 Dose: 50 mg Documented By: NAJMA Sumatriptan Succinate (Sumatriptan Succinate 100 Mg Tablet) 100 mg PO DAILY PRN PRN Reason: Migraine Headache Topiramate (Topiramate 100 Mg Tablet) 100 mg PO BID [facility] Last Admin: 12/09/24 08:08 Dose: 100 mg Documented By: NAJMA Vitamin D (Cholecalciferol (Vitamin D3) 25 Mcg Tablet) 50 mcg PO DAILY [facility] Last Admin: 12/09/24 08:08 Dose: 50 mcg Documented By: NAJMA Labs 12/08/24 12:16 12/08/24 12:16 Labs: Laboratory Results - last 24 hr 12/08/24 12/08/24 12:16 17:19 Total Creatine Kinase 79 Triglycerides 46 Cholesterol 152 LDL Cholesterol, Calc 66 HDL Cholesterol 77 Urine Color Yellow Urine Appearance Clear Urine pH 6.5 Ur Specific [place] >= 1.030 H Urine Protein Negative Urine Glucose (UA) Negative Urine Ketones Negative Urine Blood Negative Urine Nitrite Negative Ur Leukocyte Esterase Moderate (2+) H Urine RBC 0-2 Urine WBC 11-20 H Ur Squamous Epith Cells 0-2 Urine Bacteria None Seen Hyaline Casts 0-2 Microbiology Microbiology Results: Microbiology 12/08/24 17:34 Urine Culture - Preliminary Urine clean catch - Clean Catch Midstream No growth to date. Assessment and Plan (1) Syncope and collapse: Status: Acute Plan Pt is a 69-year-old female with a PMH significant for?asthma, HLD, hypothyroidism, migraines, osteoporosis, conversion disorder follows with neurology, and mood disorder who presents to the ED after witnessed syncopal episode earlier this afternoon. Pt is admitted to the hospital for treatment and further evaluation of syncopal episode concerning for acute CVA. 1.Syncopal episode -no abnormal telemetry is noted -MRI failed to demonstrate acute abnormality -await neuro input before ordering EEG -PT recommended short-term rehab 2.Asthma -stable and well compensated 3.Mood disorder -Continue mood stabilizers Full Code Lovenox Patient requires ongoing hospitalization to complete workup for syncopal episode including specialty consultation Quality Stroke Does the patient have a stroke diagnosis?: No VTE Prior VTE?: No VTE Risk Level:: Medical - moderate - high VTE Device Contraindication: Treatment Not Indicated VTE Drug Contraindication: N/A - Med Ordered
[2024-12-10 03:33] VITALS: BP 161/75; PULSE 68; RESP 16; TEMP 36.3; O2SAT 99
[2024-12-10 07:40] VITALS: BP 139/63; PULSE 63; RESP 17; TEMP 36.6; O2SAT 99
[2024-12-10] MEDS: Aspirin Enteric Coated 81 MG TABLET.DR PO (08:56)
[2024-12-10 09:29] VITALS: BP 139/63; PULSE 63; O2SAT 99
[2024-12-10 11:34] VITALS: BP 110/58; PULSE 77; RESP 16; TEMP 36.2; O2SAT 96
--- NOTE | 2024-12-10 12:49 | PM.NEUROCN ---
History of Present Illness Data of Consult Service Date: 12/10/24 Primary Care Provider: Case Duff, [facility]- HPI Reason for consult: ? Stroke This is a 69-year-old female with a h/o conversion disorder with multiple functional neurological presentations including falls, Sz, syncope, followed with neurology, migraine,?asthma, HLD, hypothyroidism, osteoporosis, and mood disorder who presented to the ED after witnessed syncopal episode earlier this afternoon. Pt reports that she was speaking with her local energy manager concerning the new trash and recycling system in her hometown when 1 of the workers asked if she was feeling okay because she was not looking well. The worker walked her back to her home when apparently she lost consciousness as she was crossing the threshold into her apartment. Pt does not remember any other details around the event; denies lightheadedness/dizziness/headache prior to the episode. Unclear whether pt had head strike, though EMS reports she was lowered to the ground by the worker. Pt initially complained of neck and lower back pain post fall. Was placed in a collar and brought to the ED for further evaluation. She reports chronic difficulty with being off balance. States had an episode or 2 of left-sided chest pain last night and earlier this morning. Mild headache, but denies any hemiparesis. Denies any acute vision changes. No fever, chills, nausea, vomiting, abdominal pain. Denies shortness or breath or difficulty breathing. Pt reports he has had a longstanding hx with recent falls and multiple hospitalizations with essentially negative workup. Follows with Neurology and currently carries a diagnosis of conversion disorder. Her labs were normal. MRI of the brain was normal with minimal microvascular white matter changes and no acute infarct. CTA of head/neck was normal without hemodynamically significant stenosis of either head or neck. CT of cervical spine negative for acute abnormality, though showed multilevel degenerative disc disease. [facility] Past Medical History Medical History Falls Anesthesia complication Liver lesion Ingrown toenail Elevated liver enzymes Concussion with loss of consciousness SOB (shortness of breath) Pain of both earlobes Dizziness New onset headache Otitis externa of both ears Acute effusion of right ear Dermatitis Myalgia Headache REM sleep behavior disorder Convulsion disorder COVID-19 Pre-syncope Dyspnea Chest pain Pneumonia Osteoporosis Screening for osteoporosis CKD (chronic kidney disease) Dyslipidemia Hypothyroid Hyperlipemia Ataxic gait Seizures Asthma Depression Conversion disorder HTN (hypertension) Muscle weakness Hypothyroid Conversion disorder with attacks or seizures, acute episode, with psychological stressor Family History Family History Father CVD (cardiovascular disease) Stomach ulcer Cardiac arrest H/O heart bypass surgery Mother History of heart attack CHF (congestive heart failure) Lung cancer Diabetes mellitus High cholesterol HTN (hypertension) Hypothyroidism Sister Lung cancer Substance use disorder Brother Colitis Sister No problems noted. Sister Obstetric pulmonary blood clot embolism, antepartum Paternal Aunt Mental health disorder Substance use disorder Maternal Grandmother Mental health disorder Family/Other Substance use disorder Surgical History Surgical History H/O colonoscopy History of right knee surgery History of lobectomy of thyroid History of arthroscopy of right knee History of ankle surgery History of arthroscopy of left knee History of hysterectomy Social History Social History Household Members: Family Household Members Other:: brother, 2 cats Housing: House Are you a primary landcare facilitator to a significant other at home: No Do you presently have visiting nurse or other home services: No Alcohol intake: never Patient Tobacco Use Status: Never used Tobacco e-Cigarette/Vaping Use: Never Used Second Hand Smoke Exposure: No service: No Current occupational status: disabled Cognitive needs: No Hearing needs: No Vision needs: No Meds Allergies Allergy/AdvReac Type Severity Reaction Status Date / Time Penicillins (PENICILLINS) Allergy Intermediate HIVES Verified 12/08/24 11:47 carbamazepine (From Tegretol) Allergy Mild HIVES Verified 12/08/24 11:47 diflunisal (From Dolobid) Allergy Mild HIVES Verified 12/08/24 11:47 erythromycin base (From Allergy Mild HIVES Verified 12/08/24 11:47 Edwin-Tab) phenytoin (From Dilantin) Allergy Mild RASH,HIVES Verified 12/08/24 11:47 piroxicam (From Feldene) Allergy Mild HIVES Verified 12/08/24 11:47 sulfamethoxazole (From Allergy Mild HIVES Verified 12/08/24 11:47 Bactrim) trimethoprim (From Bactrim) Allergy Mild HIVES Verified 12/08/24 11:47 valproic acid (From Depakene) Allergy Mild HIVES Verified 12/08/24 11:47 Depakene Allergy Unknown Rash Verified 12/08/24 11:47 hydrochlorothiazide Allergy Unknown rash Verified 12/08/24 11:47 (HYDROCHLOROTHIAZIDE) lisinopril (LISINOPRIL) Allergy Unknown rash Verified 12/08/24 11:47 codeine (Codeine) AdvReac Intermediate NAUSEA & Verified 12/08/24 11:47 VOMITING rash doxycycline AdvReac Stomach Verified 12/08/24 11:47 Upset ENVIRONMENTAL Allergy Intermediate ASTHMA,LOSES Uncoded 12/08/24 11:47 VOICE TAPE,PLASTIC Allergy Intermediate RASH Uncoded 12/08/24 11:47 surgical tape Allergy Unknown unknown Uncoded 12/08/24 11:47 Active Medications: Current Medications Albuterol Sulfate (Albuterol Sulfate (0.083%) 2.5 Mg/3 Ml Vial.Neb) 2.5 mg INHALE QID PRN PRN Reason: shortness of breath or wheezing Albuterol Sulfate (Albuterol Sulfate 90 Mcg 8 Gm Inhaler) 2 puff INHALE Q6H PRN PRN Reason: for wheezing Aspirin (Aspirin Enteric Coated 81 Mg Tablet.Dr) 81 mg PO DAILY [facility] Last Admin: 12/10/24 08:56 Dose: 81 mg Atorvastatin Calcium (Atorvastatin Calcium 80 Mg Tablet) 80 mg PO BEDTIME [facility] Last Admin: 12/09/24 20:47 Dose: 80 mg Clonazepam (Clonazepam 0.5 Mg Tablet) 0.5 mg PO BID [facility] Last Admin: 12/10/24 08:56 Dose: 0.5 mg Docusate Sodium (Docusate Sodium 100 Mg Capsule) 100 mg PO BEDTIME [facility] Last Admin: 12/09/24 20:46 Dose: Not Given Ezetimibe (Ezetimibe 10 Mg Tablet) 10 mg PO DAILY [facility] Last Admin: 12/10/24 08:56 Dose: 10 mg Fludrocortisone Acetate (Fludrocortisone Acetate 0.1 Mg Tablet) 0.1 mg PO DAILY [facility] Last Admin: 12/10/24 08:56 Dose: 0.1 mg Fluticasone Propionate (Fluticasone Propionate Nasal 16 Gm [place]) 1 spray NOSTRIL-B DAILY [facility] Last Admin: 12/10/24 12:30 Dose: 1 spray Levothyroxine Sodium (Levothyroxine Sodium 25 Mcg Tablet) 25 mcg PO DAILY@06 [facility] Last Admin: 12/10/24 06:12 Dose: 25 mcg Loratadine (Loratadine 10 Mg Tablet) 10 mg PO DAILY PRN PRN Reason: allergy symptoms Magnesium Oxide (Magnesium Oxide 400 Mg Tablet) 400 mg PO BEDTIME [facility] Last Admin: 12/09/24 20:48 Dose: 400 mg Meclizine HCl (Meclizine Hcl 25 Mg Tablet) 25 mg PO DAILY PRN PRN Reason: dizziness Montelukast Sodium (Montelukast Sodium 10 Mg Tablet) 10 mg PO BEDTIME [facility] Last Admin: 12/09/24 20:48 Dose: 10 mg Oxymetazoline HCl (Oxymetazoline Hcl 0.05 % Nasal 15 Ml [place]) 2 spray NOSTRIL-B Q12H PRN PRN Reason: Nasal Congestion Sertraline HCl (Sertraline Hcl 50 Mg Tablet) 50 mg PO DAILY [facility] Last Admin: 12/10/24 08:56 Dose: 50 mg Sumatriptan Succinate (Sumatriptan Succinate 100 Mg Tablet) 100 mg PO DAILY PRN PRN Reason: Migraine Headache Topiramate (Topiramate 100 Mg Tablet) 100 mg PO BID [facility] Last Admin: 12/10/24 08:56 Dose: 100 mg Vitamin D (Cholecalciferol (Vitamin D3) 25 Mcg Tablet) 50 mcg PO DAILY [facility] Last Admin: 12/10/24 08:56 Dose: 50 mcg Home Medications ?Medication ?Instructions ?Recorded ?Confirmed ?Last Taken ?Type aspirin 81 mg tablet,delayed 81 mg PO DAILY 07/05/20 12/08/24 Unknown History release (Adult Low Dose Aspirin) atorvastatin 80 mg tablet 80 mg PO BEDTIME 12/08/24 12/08/24 Unknown History clonazepam 0.5 mg tablet 0.5 mg PO BID anxiety/agitation 12/08/24 12/08/24 Unknown History docusate sodium 100 mg capsule 100 mg PO BEDTIME 12/08/24 12/08/24 Unknown History galcanezumab-gnlm 120 mg/mL 120 mg subcut Q30D 12/08/24 12/08/24 Unknown History subcutaneous pen injector (Emgality Pen) levothyroxine 25 mcg tablet 25 mcg PO DAILY@0612/08/24 12/08/24 Unknown History melatonin 10 mg tablet 10 mg PO BEDTIME 12/08/24 12/08/24 Unknown History montelukast 10 mg tablet 10 mg PO BEDTIME 12/08/24 12/08/24 Unknown History risedronate 35 mg tablet 35 mg PO MCKEE@0900 12/08/24 12/08/24 Unknown History sertraline 25 mg tablet 50 mg PO DAILY 12/08/24 12/08/24 Unknown History sumatriptan succinate 100 mg tablet 100 mg PO DAILY PRN Migraine 12/08/24 12/08/24 Unknown History Headache Physical Exam Vital Signs: Vital Signs: Last Vital Signs Temp 97.1 F 12/10/24 11:34 Pulse 77 12/10/24 11:34 Resp 16 12/10/24 11:34 BP 110/58 L 12/10/24 11:34 Pulse Ox 96 12/10/24 11:34 O2 Del Method Room Air 12/10/24 11:34 BMI result Body Mass Index 22.7 Neuro: Other: Normal nonfocal examination Results Labs 12/08/24 12:16 12/08/24 12:16 Microbiology Microbiology Results: Microbiology 12/08/24 17:34 Urine clean catch - Clean Catch Midstream Urine Culture - Final Assessment and Plan (1) Conversion disorder with attacks or seizures, acute episode, with psychological stressor: Status: Acute Syncopal episode which in view of her history of multiple similar episodes and conversion disorder could be a psychogenic episode. Workup including MRI and CTA are normal. I have personally reviewed her MRI and CTA Recommendation EEG, Cardiac event monitor 30 day. I discussed at length the diagnosis and presumed basis of Coversion disorder which she now seem to understand and accept. I am recommending out patient CBT ( Combine dbehavioral therapy ) Procedures Date of Service Date of Service: 12/10/24
--- NOTE | 2024-12-10 15:00 | MHC.CM.PN ---
CM met with pt. to ask her choice for STR is, referrals out.
--- NOTE | 2024-12-10 15:16 | PM.DS ---
DS: Providers Provider Date of Service: 12/10/24 Date of admission: 12/08/24 14:11 Date of discharge: 12/10/24 Primary care physician: PRINCE Eisenberg- Consults: 12/08/24 18:04 Consult to Neurology Routine Consulting Provider: [facility] Reason for consultation: Syncope, CT with ?acute/subacute CVA DS: Diagnosis Discharge Diagnosis (1) Conversion disorder with attacks or seizures, acute episode, with psychological stressor: Status: Acute DS: Summary Hospital Course Hospital Course: 69-year-old female with a PMH significant for?asthma, HLD, hypothyroidism, migraines, osteoporosis, conversion disorder follows with neurology, and mood disorder who presents to the ED after witnessed syncopal episode earlier this afternoon. 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 The worker walked her back to her home when apparently she lost consciousness as she was crossing the threshold into her apartment. Pt does not remember any other details around the event; denies lightheadedness/dizziness/headache prior to the episode. Unclear whether pt had head strike, though EMS reports she was lowered to the ground by the worker. Pt initially complained of neck and lower back pain post fall. Was placed in a collar and brought to the ED for further evaluation. Currently pt reports feeling better, though reports chronic difficulty wall and gain and feeling off balance. States had an episode or 2 of left-sided chest pain last night and earlier this morning. Mild headache, but denies any known hemiparesis. Denies any acute vision changes. No fever, chills, nausea, vomiting, abdominal pain. Denies shortness or breath or difficulty breathing. Pt reports he has had a longstanding hx with recent falls and multiple hospitalizations with essentially negative workup. Follows with Neurology and currently carries a diagnosis of conversion disorder. In the ED pt was hypertensive to 166/95, vitals otherwise stable and WNL. Labs were grossly unremarkable and around baseline for pt. No leukocytosis. Stable H&H. No significant electrolyte abnormalities. Renal and hepatic function baseline. Troponin negative. CT of head showed possible acute/subacute ischemic change in the left parietal lobe. CTA of head/neck without hemodynamically significant stenosis of either head or neck. CT of cervical spine negative for acute abnormality, though showed multilevel degenerative disc disease. Chest and abd/pelvis CT negative for traumatic injury to chest, abdomen, or pelvis. EKG demonstrated normal sinus rhythm without evidence of significant ST elevations or depressions. Pt is admitted to the hospital for treatment and further evaluation of syncopal episode concerning for acute CVA. Hospital course Patient admitted to telemetry where monitor failed to demonstrate any acute dysrhythmias that could explain patient's episode. Extensive workup including brain MRI, head and neck CTA, chest CT, abdomen pelvis CTA, head CTA, and cervical spine CTA failed to demonstrate any acute abnormalities. Patient was seen in consultation by Neurology who felt outpatient 30 day monitor to complete workup. At this point in time she is medically acceptable for discharge to home. Physical therapy deemed she will be a candidate for short-term rehab however the patient declined. Nursing staff ambulated the patient and she had no difficulty Time Attestation Discharge Coordination Time (in mins): 35 Quality: Safe Use of Opioids Does Pt have an Active Cancer Diagnosis on the Problem List?: No Quality: Stroke Does the patient have a stroke diagnosis?: No Physical Exam Vital Signs: Vital Signs: Last Vital Signs Temp 97.1 F 12/10/24 11:34 Pulse 77 12/10/24 11:34 Resp 16 12/10/24 11:34 BP 110/58 L 12/10/24 11:34 Pulse Ox 96 12/10/24 11:34 O2 Del Method Room Air 12/10/24 11:34 BMI result Body Mass Index 22.7 Const: Other: Awake alert no acute distress Resp: Other: Clear to auscultation bilaterally no rales rhonchi or wheezes Cardio: Other: No S4; positive S1-S2; no S3 murmurs rubs or gallops GI: Other: Soft nontender nondistended normoactive bowel sounds Extrem: Other: No edema bilaterally Discharge Plan Discharge Anticipated Discharge Date/Time: 12/10/24 15:13 Patient Disposition: Home Health Service Discharge Diagnosis: Syncopal episode Referrals: Case Duff FNP-BC [Primary Care Provider, Internal Medicine] - 1 Week Discharge Medications: Continued (DME) [facility] See Rx Instructions .Route .MEDSUPPLY Qty: 1 0RF Rx Instructions: As directed fluticasone propion-salmeterol [Wixela Inhub] 250-50 mcg/dose blister with device 1 ea inhalation BID 90 Days Qty: 3 4RF ezetimibe 10 mg tablet 10 mg PO DAILY Qty: 90 1RF albuterol sulfate 90 mcg/actuation HFA aerosol inhaler 2 puff PO Q6H PRN (Reason: for wheezing) Qty: 6.7 0RF folic acid 800 mcg tablet 0.8 mg PO DAILY Qty: 90 1RF meclizine 25 mg tablet 25 mg PO DAILY PRN (Reason: dizziness) Qty: 20 0RF fluticasone propionate 50 mcg/actuation spray,suspension 1 spray intranasal DAILY 90 Days Qty: 48 1RF Rx Instructions: administer into each nostril fludrocortisone 0.1 mg tablet 0.1 mg PO DAILY 90 Days Qty: 90 1RF cholecalciferol (vitamin D3) 50 mcg (2,000 unit) capsule 50 mcg PO DAILY 90 Days Qty: 90 1RF atorvastatin 80 mg tablet 80 mg PO BEDTIME clonazepam 0.5 mg tablet 0.5 mg PO BID levothyroxine 25 mcg tablet 25 mcg PO DAILY@0630 montelukast 10 mg tablet 10 mg PO BEDTIME risedronate 35 mg tablet 35 mg PO MCKEE@0900 sertraline 25 mg tablet 50 mg PO DAILY sumatriptan succinate 100 mg tablet 100 mg PO DAILY PRN (Reason: Migraine Headache) Emgality Pen 120 mg/mL pen injector 120 mg subcut Q30D docusate sodium 100 mg Capsule 100 mg PO BEDTIME melatonin 10 mg Tablet 10 mg PO BEDTIME aspirin [Adult Low Dose Aspirin] 81 mg tablet,delayed release (DR/EC) 81 mg PO DAILY albuterol sulfate 2.5 mg /3 mL (0.083 %) solution for nebulization 2.5 mg inhalation QID PRN (Reason: shortness of breath or wheezing) 90 Days Qty: 180 0RF Rx Instructions: for neb oxymetazoline [Afrin (oxymetazoline)] 0.05 % spray,non-aerosol 2 spray intranasal Q12H PRN (Reason: nasal congestion) 3 Days Qty: 15 0RF topiramate 100 mg tablet 100 mg PO BID 90 Days Qty: 180 1RF riboflavin (vitamin B2) 400 mg tablet 400 mg PO DAILY 90 Days Qty: 90 1RF magnesium oxide 400 mg (241.3 mg magnesium) tablet 400 mg PO BEDTIME 90 Days Qty: 90 1RF cetirizine [All Day Allergy (cetirizine)] 10 mg tablet 10 mg PO DAILY PRN (Reason: allergy symptoms) 30 Days Qty: 30 0RF Discharge Orders: Discharge Order (Routine); Ordered 12/10/24 Ordered By: Italo Veloz Diet: Advance to usual diet Activity on Discharge: As tolerated Stand Alone Forms: Patient Portal Discharge page Print Language: [place] Care Plan Goals: Resume all medications as taken prior to hospital. No changes have been made to your medical regimen. Health Concerns: This syncopal episode workup is unremarkable. Follow up with your PCP next available Plan of Treatment: VNA/physical therapy we will follow you at home Assessment: See discharge summary
--- NOTE | 2024-12-10 15:19 | P.F2F_ITS ---
Service Date Service Date: 12/10/24 Encounter Date of encounter: 12/10/24 Encounter: Acute hospitalization Reasons for Services Signs and symptoms assessed: Assess response to therapies and assist with gait training and strengthening Reason for longterm: medication management and teach disease management Reason for physical therapy: home safety and mobility and therapeutic exercises Homebound: Leaving the home is medically contraindicated at this time without the asist of a device and/or another person due th the listed conditions above and below. Reason homebound: unsteady gait / fall risk and leg weakness Certification: Based on the above findings, I certify that this patient is confined to the home and needs intermittent longterm care, physical therapy and/or speech therapy, or continues to need occupational therapy. The patient is under my care, and I have initiated the establishment of the plan of care. The patient will be followed by a physician who will periodically review the plan of care. Time Spent With Patient Time: Total time managing care of this patient today ____ minutes.
--- NOTE | 2024-12-10 15:30 | MHC.CM.PN ---
Pt has been medically cleared, she will go home via her family or [employer], VNA referrals are out.
[2024-12-10 15:41] VITALS: BP 117/81; PULSE 76; RESP 17; TEMP 36.4; O2SAT 97
--- NOTE | 2024-12-11 18:57 | P.CDIM_ITS ---
PROVIDER RESPONSE TEXT: To clarify, the appropriate diagnosis supported by the clinical indicators: Mild intermittent: withou QUERY TEXT: PHYSICIAN'S DOCUMENTATION REQUEST Date of Query: 12/10/2024 12:56 PM EDT Patient Name: Sarahy Neves Admit Date: 12/08/2024 Dear Italo Veloz DO, A review of the medical record indicates additional documentation may be needed. Please review below and update the documentation accordingly. The diagnosis of asthma was documented in the record on 12/09/24. Additional clinical indicators from the record include: PMH Asthma, stable and well compensated Singulair 10 mg po HS, Ventolin prn Based on the above, please clarify in the Progress Notes further specificity regarding the type and acuity of the asthma: Mild intermittent Please specify if with or without acute exacerbation or status asthmaticus Mild persistent Please specify if with or without acute exacerbation or status asthmaticus Moderate persistent Please specify if with or without acute exacerbation or status asthmaticus Severe persistent Please specify if with or without acute exacerbation or status asthmaticus Exercise induced Please specify if with or without acute exacerbation or status asthmaticus Chronic obstructive asthma and indicate if with acute lower respiratory infection Please specify if with or without acute exacerbation or status asthmaticus Asthma with underlying COPD and indicate if with acute lower respiratory infection Please specify if with or without acute exacerbation or status asthmaticus Other (explain) Clinically unable to determine (explain) Thank you, Lesly Leon RN Use of terms such as suspected, likely, concern for, or probable (associated with a specific diagnosis that is being evaluated, monitored, or treated as if it exists) are acceptable and can be coded in the inpatient setting, when documented at the time of discharge. Please use your independent medical judgment in providing your response. THIS QUERY IS PART OF THE PERMANENT MEDICAL RECORD
== END 2024-12-10 17:59 | disposition home health service (06) | DRG 880 ==
LOC: HO.ED 14:35 → HO.EDOVER 14:42 → HO.IMC 12-09 07:38
PROVIDERS: Internal Medicine; Admitting Provider Student in an Organized Health Care Education/Training Program; Emergency Provider Emergency Medicine; PCP Nurse Practitioner Family; Visit Provider Hospitalist
DX: F44.5 Conversion disorder with seizures or convulsions (principal); E78.5 Hyperlipidemia, unspecified; E03.9 Hypothyroidism, unspecified; F39 Unspecified mood [affective] disorder; J45.20 Mild intermittent asthma, uncomplicated; G43.909 Migraine, unspecified, not intractable, without status migrainosus; Z79.82 Long term (current) use of aspirin; Z79.51 Long term (current) use of inhaled steroids; Z79.890 Hormone replacement therapy; Z79.899 Other long term (current) drug therapy
CPT/HCPCS: 36415; 70450; 70496; 70498; 70551; 71250; 72125; 74176; 80053; 80061; 81001; 82550; 84484; 85025; 87086; 93005; 93306; 97162; 97165; 97530; 99285; Q9957; Q9967

== ENCOUNTER → 2024-12-08 11:47 | Outpatient (BNV) | payer OTHER, SELFPAY | PROVIDERS: Emergency Provider Emergency Medicine; PCP Nurse Practitioner Family; Visit Provider Radiology Diagnostic Radiology | DX: R42 Dizziness and giddiness (principal); R07.89 Other chest pain; R10.32 Left lower quadrant pain; R10.814 Left lower quadrant abdominal tenderness; R55 Syncope and collapse; M50.322 Other cervical disc degeneration at C5-C6 level; S09.90XA Unspecified injury of head, initial encounter; W19.XXXA Unspecified fall, initial encounter | CPT/HCPCS: 70450; 70496; 70498; 70551; 71250; 72125; 74176 ==

== ENCOUNTER → 2024-12-08 12:08 | Outpatient (BNV) | payer OTHER, SELFPAY | PROVIDERS: Admitting Provider Student in an Organized Health Care Education/Training Program; Emergency Provider Emergency Medicine; PCP Nurse Practitioner Family; Visit Provider Internal Medicine Cardiovascular Disease | DX: R55 Syncope and collapse (principal) | CPT/HCPCS: 93010 ==

== ENCOUNTER 2024-12-08 14:11 | Outpatient (BNV) | payer OTHER, SELFPAY | END 2024-12-09 07:00 | PROVIDERS: Admitting Provider Student in an Organized Health Care Education/Training Program; Emergency Provider Emergency Medicine; PCP Nurse Practitioner Family; Visit Provider Internal Medicine Cardiovascular Disease | DX: R55 Syncope and collapse (principal) | CPT/HCPCS: 93306 ==

== ENCOUNTER → 2024-12-08 14:11 | Outpatient (BNV) | payer OTHER, SELFPAY | PROVIDERS: Admitting Provider Student in an Organized Health Care Education/Training Program; Emergency Provider Emergency Medicine; PCP Nurse Practitioner Family; Visit Provider Psychiatry & Neurology Neurology | DX: F44.5 Conversion disorder with seizures or convulsions (principal) | CPT/HCPCS: 99223 ==

== ENCOUNTER → 2024-12-08 14:11 | Outpatient (BNV) | payer OTHER, SELFPAY | PROVIDERS: Admitting Provider Student in an Organized Health Care Education/Training Program; Emergency Provider Emergency Medicine; PCP Nurse Practitioner Family; Visit Provider Student in an Organized Health Care Education/Training Program | DX: F44.5 Conversion disorder with seizures or convulsions (principal) | CPT/HCPCS: 99223; 99232; 99239; G0180 ==

== ENCOUNTER 2024-12-18 08:58 | Outpatient (AMB) | payer OTHER, SELFPAY ==
--- NOTE | 2024-12-18 09:17 | A.OFFPC_ITS ---
Vital Signs 12/18/24 09:20 Height 5 ft 2 in Weight 119 lb BMI 21.8 BP 128/82 Blood Pressure Location Rt brachial Position Sitting Pulse 71 Pulse Source Pulse Oximeter Pulse Oximetry (%) 98 Oxygen Delivery Method Room Air Intake Visit Reasons: tcm Braille Teacher Required: No Is last menstrual period known: No Post menopausal: Yes Patient : No Allergies Penicillins (PENICILLINS) Allergy (Intermediate, Verified 12/18/24 09:20) HIVES carbamazepine (From Tegretol) Allergy (Mild, Verified 12/18/24 09:20) HIVES diflunisal (From Dolobid) Allergy (Mild, Verified 12/18/24 09:20) HIVES erythromycin base (From Edwin-Tab) Allergy (Mild, Verified 12/18/24 09:20) HIVES phenytoin (From Dilantin) Allergy (Mild, Verified 12/18/24 09:20) RASH,HIVES piroxicam (From Feldene) Allergy (Mild, Verified 12/18/24 09:20) HIVES sulfamethoxazole (From Bactrim) Allergy (Mild, Verified 12/18/24 09:20) HIVES trimethoprim (From Bactrim) Allergy (Mild, Verified 12/18/24 09:20) HIVES valproic acid (From Depakene) Allergy (Mild, Verified 12/18/24 09:20) HIVES Depakene Allergy (Unknown, Verified 12/18/24 09:20) Rash hydrochlorothiazide (HYDROCHLOROTHIAZIDE) Allergy (Unknown, Verified 12/18/24 09:20) rash lisinopril (LISINOPRIL) Allergy (Unknown, Verified 12/18/24 09:20) rash codeine (Codeine) Adverse Reaction (Intermediate, Verified 12/18/24 09:20) NAUSEA & VOMITING rash doxycycline Adverse Reaction (Verified 12/18/24 09:20) Stomach Upset ENVIRONMENTAL Allergy (Intermediate, Uncoded 12/08/24 11:47) ASTHMA,LOSES VOICE TAPE,PLASTIC Allergy (Intermediate, Uncoded 12/08/24 11:47) RASH surgical tape Allergy (Unknown, Uncoded 12/08/24 11:47) unknown Tobacco use date assessed: 12/18/24 Fall risk assessment: 2 + Falls in past year Last assessed Fall Risk: 12/18/24 Dental Screening Dental Screen Date: 10/30/24 Did you have a dental visit in the last 12 months?: No Did you have a dental problem in the last 6 months where you did not have access to dental care?: No Was dental information given to patient?: Patient has dentist [facility] TCM TCM Information Date of Discharge 12/10/24 Discharged From [facility] Interactive Contact Date (Reference documentation from this date) 12/11/24 HPI Comments History of Present Illness Details Patient is a 69-year-old female, here with her son, with a past medical history of asthma, HLD, migraines, osteoporosis, hypothyroidism, mood disorder and conversion disorder who follows with Neurology, she is here for a hospital discharge follow-up from a hospitalization at [facility] from 12/08/2024 until 12/10/2024. Records indicate that patient went to the emergency department via EMS after having a witnessed syncopal episode on December 08. Of note, records do show she has chronic difficulty walking and feeling off balance. There was a concern for a stroke in the ED. While in the ED, she was hypertensive to 166/95, her vitals were otherwise normal, her labs were unremarkable and at her baseline. Troponin was negative. CT of the head showed a possible acute or subacute ischemic changes in the left parietal lobe. CT of the cervical spine was negative for any acute abnormality and only showed multilevel degenerative disc disease. CT of the chest and abdomen was negative for traumatic injury to the chest abdomen or pelvis. EKG was normal no acute changes. Pt is admitted to the hospital for treatment and further evaluation of syncopal episode concerning for acute CVA. While admitted, patient did not have any acute dysrhythmias as per telemetry. She had an extensive workup that was all relatively normal, this includes a brain MRI, head and neck CTA, chest CT, abdomen pelvis CTA, head CTA and cervical spine CTA. She was seen by Neurology who recommended a outpatient 30 day monitor to complete the workup. She was discharged home after she had no issues ambulating. PT did recommend short-term rehab however the patient declined. Today, she feels back to her baseline but fatigued. The patient was discharged with information on stroke signs and symptoms despite the stroke being ruled out. She was very confused by this and is asking why they would give her this info. We went through all of the paperwork together and I advised they likely just wanted her to be educated on the signs and symptoms of a stroke. We did review the signs and symptoms of a stroke together, at length. She tells me she has a history of balance problems, which have been long-standing since childhood. The patient reports experiencing chest pain on both sides, which was evaluated during the hospital stay with a cardiac workup. She has not received any information about the 30 day Holter monitor so I will order that for her today. She also tells me she experienced one episode of numbness and tingling in both of her feet, which resolved after five minutes without intervention. She was sitting on a very high chair at the time and her son seems to think this may be why her legs went a little numb. She denied any weakness in her legs. We did discuss her syncopal episode and the possibility that it was heat induced because that day was very hot and humid, her son said she was outside for an extended period of time prior to it happening. She also has asthma, which can be exacerbated by environmental factors such as heat and humidity. She also discussed her conversion disorder, she tells me she spoke with Dr. Cassidy about it. She is also asking if she is supposed to be splitting her fludrocortisone in half. I looked back of the records and her PCP does not indicate this and the last note, nor is it ordered this way on her prescription history. I recommended she continue to take the full tablet and I will check with her PCP, Case. Physical Exam General: Cooperative, healthy appearing, comfortable, no acute distress and well developed Orientation: Patient oriented x3 Limitations: No limitations Head: Normal to inspection Ears: Hearing grossly normal bilaterally Nose: Normal External nose present Face and sinus: Normal facial exam Eyes: Appearance normal, both eyes and all related structures Neck: Normal visual inspection and Yes full ROM Respiratory: Normal respiratory effort and able to speak in complete sentences. Skin: No rashes or lesions noted Neuro: Patient oriented x3, gait normal Extremities: Normal to inspection [facility] Medical History Falls Anesthesia complication Liver lesion Ingrown toenail Elevated liver enzymes Concussion with loss of consciousness SOB (shortness of breath) Pain of both earlobes Dizziness New onset headache Otitis externa of both ears Acute effusion of right ear Dermatitis Myalgia Headache REM sleep behavior disorder Convulsion disorder COVID-19 Pre-syncope Dyspnea Chest pain Pneumonia Osteoporosis Screening for osteoporosis CKD (chronic kidney disease) Dyslipidemia Hypothyroid Hyperlipemia Ataxic gait Seizures Asthma Depression Conversion disorder HTN (hypertension) Muscle weakness Hypothyroid Conversion disorder with attacks or seizures, acute episode, with psychological stressor Surgical History H/O colonoscopy History of right knee surgery History of lobectomy of thyroid History of arthroscopy of right knee History of ankle surgery History of arthroscopy of left knee History of hysterectomy Family History Father CVD (cardiovascular disease) Stomach ulcer Cardiac arrest H/O heart bypass surgery Mother History of heart attack CHF (congestive heart failure) Lung cancer Diabetes mellitus High cholesterol HTN (hypertension) Hypothyroidism Sister Lung cancer Substance use disorder Brother Colitis Sister No problems noted. Sister Obstetric pulmonary blood clot embolism, antepartum Paternal Aunt Mental health disorder Substance use disorder Maternal Grandmother Mental health disorder Family/Other Substance use disorder Social History Household Members: Family Household Members Other:: brother, 2 cats Housing: House Are you a primary critical care physician assistant to a significant other at home: No Do you presently have visiting nurse or other home services: No Alcohol intake: never Patient Tobacco Use Status: Never used Tobacco e-Cigarette/Vaping Use: Never Used Second Hand Smoke Exposure: No Patient : No service: No Current occupational status: disabled Cognitive needs: No Hearing needs: No Vision needs: No Questionnaire PHQ-9 Over the last 2 weeks, how often have you been bothered by any of the following problems? 1. Little interest or pleasure in doing things: more than half the days 2. Feeling down, depressed, or hopeless: several days 3. Trouble falling or staying asleep, or sleeping too much: several days 4. Feeling tired or having little energy: several days 5. Poor appetite or overeating: more than half the days 6. Feeling bad about yourself - or that you are a failure or have let yourself or your family down: nearly every day 7. Trouble concentrating on things, such as reading the newspaper or watching television: nearly every day 8. Moving or speaking so slowly that other people could have noticed. Or the opposite - being so fidgety or restless that you have been moving around a lot more than usual: several days 9. Thoughts that you would be better off or of hurting yourself in some way: not at all Total score: 14 Depression Screening Interpretation: Positive Depression Screening Done: Yes 88018 - PHQ-9 Billing: Yes Source: Developed by Drs. Mirza Corona, Jelena Walton, Arnoldo Gonzalez and colleagues, with an educational liu from [employer]. Thrive Questionnaire Date Thrive assessed: 12/18/24 I am a: Patient What is your living situation today?: I choose not to answer this question Within the past 12 months, did the food you bought not last and you didn't have the money to get more?: I choose not to answer this question Within the past 12 months, did you worry whether your food would run out before you got money to buy more?: I choose not to answer this question Do you have trouble paying for medicines?: I choose not to answer this question Do you have trouble getting transportation to medical appointments?: I choose not to answer this question Do you have trouble paying your heating and electricity bill?: I choose not to answer this question Do you have trouble taking care of your child, family member or friend?: I choose not to answer this question Do you have trouble with day-to-day activities such as bathing, preparing meals, shopping, managing finances, etc.?: I choose not to answer this question Are you currently unemployed and looking for a job?: I choose not to answer this question Are you interested in more education?: I choose not to answer this question Please select the resources that you would like help with: None Currently or been in a relationship where the following occur: I choose not to answer THRIVE Score: 0 AUDIT C Alcohol Use Questionnaire (AUDIT-C) 1. How often do you have a drink containing alcohol?: Never 3. How often do you have six or more drinks on one occasion?: Never Total Score: 0 Score Reviewed/Action Taken: Yes KATHRINE-7 AMB Questionnaire KATHRINE-7 Date KATHRINE - 7 assessed: 12/18/24 (patient declined) Feeling nervous, anxious, or on edge: 0 = Not at all Not being able to stop or control worryin = Not at all Worrying too much about different things: 0 = Not at all Trouble relaxin = Not at all Being so restless that it is hard to sit still: 0 = Not at all Becoming easily annoyed or irritable: 0 = Not at all Feeling afraid as if something awful might happen: 0 = Not at all Total KATHRINE-7 score (0-4 normal; 5-9 mild; 10-14 moderate; 15-21 severe): 0 Source: Developed by Drs. Mirza Corona, Jelena Walton, Arnoldo Gonzalez and colleagues, with an educational liu from [employer]. KATHRINE-7 Assessment Billing KATHRINE-7 Assessment Tool: KATHRINE-7 Assessment 01173 Review of Systems Const All systems reviewed & are unremarkable except as noted in HPI and below Physical exam (Primary Care) Vital Signs: Last Vital Signs Pulse 71 12/18/24 09:20 BP 128/82 12/18/24 09:20 Pulse Ox 98 12/18/24 09:20 Oxygen Delivery Method Room Air 12/18/24 09:20 BMI result Body Mass Index 21.8 Tobacco/Smoking Status: Tobacco use Status Tobacco use date assessed 12/18/24 12/18/24 09:24 Patient Tobacco Use Status Never used Tobacco 12/18/24 09:24 e-Cigarette/Vaping Use Never Used 12/18/24 09:24 PHQ-9: PHQ-9 Score PHQ-9: Total score 14 12/18/24 09:33 Depression Screening Interpretation: Positive Thrive Assessment: Date of Thrive Assessment Date Thrive assessed 12/18/24 12/18/24 09:24 Currently or been in a relationship where the following occur: I choose not to answer Coding Level of Care Code TCM Mod MDM <= 14 Days Diagnoses Syncope and collapse R55 Hospital discharge follow-up Z09 Additional Codes KATHRINE-7 Assessment Billing - KATHRINE-7 Assessment Tool: KATHRINE-7 Assessment 18452 ([id number]) PHQ-9 - 64126 - PHQ-9 Billing: Yes ([id number]) Assessment & Plan Assessment & Plan (1) Syncope and collapse: Code(s): R55 - Syncope and collapse Category: Medical Plan: as below (2) Hospital discharge follow-up: Code(s): Z09 - Encounter for follow-up examination after completed treatment for conditions other than malignant neoplasm Category: Medical Plan: Plan - Arranged for a 30-day Holter monitor to evaluate cardiac activity and rule out any arrhythmias. - Encouraged pt to go to her Neurology on December 25 for further evaluation and management. - Educate the patient on recognizing signs and symptoms of a stroke and the importance of seeking immediate medical attention if they occur. - Discussed her conversion disorder and the use of a medical alert bracelet to inform others of stress-induced episodes. - recommended she continue on the 0.1 mg fludicortisone daily, as prescribed. She can follow up with her PCP as already scheduled in January. Patient was informed and verbally consented to the use of an ambient scribe for clinic note documentation during this visit. Orders: Orders ECG 30 day event monitor Today R55 - Syncope and collapse
--- OUTSIDE RECORDS SUMMARY | 2024-12-18 09:19 | XMS_ITS | Patient Health Record ---
Author Organization [facility] Address [address] [place] [address] Care Team Providers Care Denture Model Maker Name Role Phone Case Duff Primary Care Provider Sebastien Byrnes Unavailable [phone] GABRIELLE BOO Unavailable [phone] Allergies Allergen (clinical drug ingredient) Drug/Non Drug [...] convulsions (F44.5) Active confirmed Problem Mood disorder (99639215) Mood disorder (F39) Active confirmed Problem Seizure disorder (675562572) Seizure disorder (G40.909) Active confirmed Problem Sleep disturbance (79352353) Sleep disturbance, unspecified (G47.9) Active confirmed Vital Signs Heart Rate 79 /min 11/20/2024 Blood pressure diastolic 75 mm Hg 11/20/2024 Height 60 in 11/20/2024 Blood pressure systolic 129 mm Hg 11/20/2024 Weight 115 lbs 11/20/2024 BMI 22.46 kg/m2 11/20/2024 Encounters Encounter Location Date Provider Diagnosis [address] [address] 11/20/2024 Sebastien Myrick 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 Boo, and FND specialist here at [facility], has availability to also evaluate and perhaps [...] Test Name Order Date MR-Brain (C-) CPT 04537 11/20/2024 Next Appt Details Provider Name:Falguni Rehman heidy, 01/08/2025 03:30:00 PM, [address], [facility], [place], [address], Insurance Providers Payer Name Payer Address Payer Phone Subscriber Number Group Number Insured Name Patient Relationship to Insured Coverage Start Date Coverage End Date [facility] [address] [place] [address] [id number] Sarahy Neves Self - patient is the insured MEDICARE [address] [place] [id number] Sarahy Neves Self - patient is the insured [facility] [address] [place] [address] [id number] Sarahy Neves Self - patient is the [...]
--- OUTSIDE RECORDS SUMMARY | 2024-12-18 09:19 | XMS_ITS | Patient Health Record ---
Author Organization [facility] Address [address] [place] [address] Care Team Providers Care Vessel Traffic Officer Name Role Phone MANDO TAMAYO Primary Care Provider Philippe Tsai Jr [phone] Allergies Allergen (clinical drug ingredient) Drug/Non Drug Allergy documented on EMR Reaction Allergy Type Onset Date Status diflunisal Dolobid Unknown Drug Allergy Active Adhesive Tape Unknown Drug Allergy Act roopa Sulfa Unknown Drug Allergy Active Penicillin Unknown Drug Allergy Active carbamazepine Tegretol Unknown Drug Allergy Act roopa hydrochlorothiazide / lisinopril Lisinopril-Hydrochl orothiazide Unknown Drug Allergy Active piroxicam Feldene Unknown Drug Allergy Active erythromycin Erythromycin Unknown Drug Allergy A ctive phenytoin Dilantin Unknown Drug Allergy Active valproate Depakote Unknown Drug Allergy Active codeine Codeine Sulfate Unknown Drug Allergy A ctive sulfamethoxazole / trimethoprim Bactrim Unknown Drug Allergy Active Reason For Referral [...] e a day Active Mag Oxide-Vit D3-Turmeric [phone] MG-UNIT-MG as directed Orally Active ProAir HFA [...] Status Risk Notes Problem Colon cancer screening (Z12.11) Active confirmed Problem Screening for malignant neoplasm of colon (595293159) Encounter for screening for malignant neoplasm of colon (Z12.11) Active confirmed Problem Fatty liver (084788504) Fatty liver (K76.0) Active confirmed Problem [id number] Long-term use of aspirin therapy (Z79.82) Active confirmed Problem Hepatic hemangioma (D18.03) Active confirmed Vital Signs Temperature 96.9 degrees Fahrenheit 09/15/2024 Blood pressure diastolic 01 mm Hg 09/15/2024 Height 60 in 09/15/2024 Blood pressure systolic 001 mm Hg 09/15/2024 Weight 116 lbs 09/15/2024 BMI 22.65 kg/m2 09/15/2024 Encounters Encounter Location Date Provider Diagnosis [facility] [address] [place], [place] [id number] 11/25/2024 Philippe Price Jr Colon cancer screening Z12.11 and Personal history of adenomatous and serrated colon polyps Z86.0101 [facility] [address] [place] [address] 09/15/2024 Philippe Price Jr Fatty liver K76.0 ; Hepatic hemangioma D18.03 and Encounter for screening for malignant neoplasm of colon Z12.11 [facility] [address] [place] [address] 10/08/2024 Philippe Price Jr Assessments Encounter Date Diagnosis (ICD Code) Assessment Notes Treatment Notes Treatment Clinical Notes Section Notes 11/25/2024 Colon cancer screening (ICD-10 - Z12.11) 11/25/2024 Personal history of adenomatous and serrated colon polyps (ICD-10 - Z86.0101) 09/15/2024 Fatty liver (ICD-10 - K76.0) We discussed fatty liver today. We discussed hepatic hemangiomas today. At this time we have recommended monitoring her liver function tests and following up as needed. Imaging studies were reviewed in detail. She is due for colorectal cancer screening. This will be arranged. She understands risks and benefits and agrees to proceed. She is advised to stop aspirin 1 week before the procedure along with ibuprofen. 09/15/2024 Hepatic hemangioma (ICD-10 - D18.03) We discussed fatty liver today. We discussed hepatic hemangiomas today. At this time we have recommended monitoring her liver function tests and following up as needed. Imaging studies were reviewed in detail. She is due for colorectal cancer screening. This will be arranged. She understands risks and benefits and agrees to proceed. She is advised to stop aspirin 1 week before the procedure along with ibuprofen. 09/15/2024 Encounter for screening for malignant neoplasm of colon (ICD-10 - Z12.11) We discussed fatty liver today. We discussed hepatic hemangiomas today. At this time we have recommended monitoring her liver function tests and following up as needed. Imaging studies were reviewed in detail. She is due for colorectal cancer screening. This will be arranged. She understands risks and benefits and agrees to proceed. She is advised to stop aspirin 1 week before the procedure along with ibuprofen. Plan Of Treatment Future Test Test Name Order Date COLONOSCOPY 10/09/2024 Insurance Providers Payer Name Payer Address Payer Phone Subscriber Number Group Number Insured Name Patient Relationship to Insured Coverage Start Date Coverage End Date [facility] [address] Attn Claims REBA Sanchez [id number] SWATHI BANDA Self - patient is the [...]
[2024-12-18 09:20] VITALS: BP 128/82; PULSE 71; O2SAT 98; BMI 21.8
--- OUTSIDE RECORDS SUMMARY | 2024-12-18 09:20 | XMS_ITS | Clinical Summary ---
Author Organization [facility] Address [address] [place] [address] Care Team Providers Care Bowling Ball Weigher And Packer Name Role Phone Unavailable Primary Care Provider [...] 2023-2 5 season) 2024 Influenza Vaccine (#1) 2025 RSV Immunization Adult Patie nts (1 - [...]
--- OUTSIDE RECORDS SUMMARY | 2024-12-18 09:20 | XMS_ITS | Data Portability ---
Author Organization [email or web address], 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 Patient given the opportunity to ask questions. Advised needs close follow-up with PCP however-if not improving she may call for another visit with us and if develops CP/severe SOB/turning blue/uncontrolle d n/v/d or black/bloody emesis or stool/ AMS/ syncope/ hi fever to call 911- she verbalized understanding of instructions to me [email or web address] Not available 02/16/2023 13:22:13 06/29/2023 06/29/2023 I have reviewed and agree with the Assessment and Plan as documented by the Turbo Generator Oiler. I provided real-time medical direction via phone for this encounter, and was available for additional phone based assistance as needed. I have reviewed and agree with the Assessment and Plan as documented by the Turbo Generator Oiler. I provided real-time medical direction via phone [...] 2022 023 [email or web address] 0 Main - [facility], [address] [place] [address], [phone] 3 15:01:01 rapid flu (A+B) 2022 023 [email or web address] 0 Main - [facility], [address] [place] [address], [phone] 3 15:01:01 rapid SARS CoV 2 Ag, QL IA, respiratory specimen 2021 022 [email or web address] 5 Main - [facility], [address] [place] [address], [phone] 2 16:18:02 rapid flu (A+B) 2021 022 [email or web address] 5 Main - [facility], [address] [place] [address], [phone] 2 16:18:02 rapid strep group A, throat 2021 022 [email or web address] 5 Main - [facility], [address] [place] [address], [phone] 2 16:18:02 Referral None recorded. Procedures None recorded. Surgeries None recorded. Imaging None recorded. Medication Orders albuterol sulfate 2.5 mg/3 mL (0.083 %) solution for nebulizatio n 2022 023 [email or web address] 0 Not available 3 15:04:06 albuterol sulfate 2.5 mg/3 mL (0.083 %) solution for nebulizatio n 2022 023 [id number], [address], [place], [phone], 3 15:04:13 prednisone 20 mg tablet 2022 023 [email or web address] 0 Not available 3 15:04:06 prednisone 20 mg tablet 2022 023 [place] [id number], [address], [place], [phone], 3 15:04:14 Patient TargetsNo targets recorded. Patient InstructionsNo instructions recorded. Reason for Referral None Reported. Results Created Date Observation Date Name Description Value Unit Range Abnormal Flag Note LastModifiedBy Organization Detail LastModifiedTime 04/27/20 22 04/27/2022 rapid strep group A, throa t Strep negati ve Not Available Main - [facility] ed [address] [place] [address], [phone] 04/27/2022 16:17:34 04/27/20 22 04/27/2022 rapid flu (A+B) Flu negati ve Not Available Main - [facility] ed [address] [place] [address], [phone] 04/27/2022 16:17:30 04/27/20 22 04/27/2022 rapid SARS CoV 2 Ag, QL IA, respi rator y speci men rapid SARS CoV 2 Ag, QL IA, respiratory specimen negati ve Not Available [facility] - [facility] ed [address] [place] [address], [address] 04/27/2022 16:17:26 02/16/20 23 02/15/2023 rapid flu (A+B) Flu negati ve Not Available Main - [facility] ed [address] [place] [address], [phone] 02/15/2023 15:00:42 02/16/20 23 02/15/2023 rapid SARS CoV 2 Ag, QL IA, respi rator y speci men rapid SARS CoV 2 Ag, QL IA, respiratory specimen negati ve Not Available [facility] - [facility] ed [address] [place] [address], [phone] 02/15/2023 15:00:34 Result Notes None recorded. Medical Equipment None Reported. Allergies Allergen ID Allergen Name Allergen Category Reaction Reaction Severity Criticality Documentation Date Start Date Code Code System Note Provider Name and Address Organization Details Recorded Time 3232 Depakene medicatio n Not available Not available Not available 02/16/2023 5 RxNorm Chasity Mark MD [address] [place] [address],[address], [place], [phone], [employer] [place] [facility], [employer] 3 13:18:24 3233 Dilantin medicatio n Not available Not available Not available 02/16/2023 0 RxNorm Chasity Mark MD [address] [place] [address],[address], [place], [address], [place] [facility], [employer] 13:18:32 3234 Tegretol medicatio n Not available Not available Not available 02/16/2023 9 RxNorm Chasity Mark MD [address] [place] [address],[address], [place], [phone], [place] - [employer], [employer] 13:18:53 3235 erythromy akhil medicatio n Not available Not available Not available 02/16/2023 4053 RxNorm and ilosi ne Chasity Mark MD [address] [place] [address],[address], [place], [address], [place] [facility], [employer] 13:19:12 3236 Feldene medicatio n Not available Not available Not available 02/16/202319718 8 RxNorm Chasity Mark MD [address] [place] [address],[address], [place], [address], [place] [facility] [employer], [employer] 13:19:27 3237 Dolobid medicatio n Not available Not available Not available 02/16/202322420 6 RxNorm Chasity Mark MD [address] [place] [address],[address], [place], [address], [employer], [employer] 13:19:35 3238 Substance with sulfonami de structure and antibacte rial mechanism of action (substanc e) medicatio n Not available Not available Not available 02/16/2023 96868 8003 SNOMED Chasity Mark MD [address] [place] [address],[address], [place], [address], [employer] 3 13:19:43 3239 Product containin g penicilli n (product) medicatio n Not available Not available Not available 02/16/2023 84406 8001 SNOMED Not Available [facility] - production 4 03:34:14 3240 codeine medicatio n Not available Not available Not available 02/16/2023 2670 RxNorm Chasity Mark MD [address] [place] [address],[address], [place], [address], [employer] 3 13:20:02 3241 lisinopri l medicatio n Not available Not available Not available 02/16/2023 54422 RxNorm She was on lisin opril /hydr ochlo rothi azide and does not know which moiet y she had the react ion to Chasity Mark MD [address] [place] [address],[address], [place], [address], [employer] 3 13:20:49 3242 adhesive tape environme nt,medica tion Not available Not available Not available 02/16/2023 35899 UNK Chasity Mark MD [address] [place] [address],[address], [place], [address], [employer] 3 13:21:07 7004 Bactrim medicatio n Not available Not available Not available 04/08/2024 44994 9 RxNorm Not Available [facility] 4 03:34:14 Medications Name Sig [...] Available No t Available Vitals Date Recorded Oxygen saturation Oxygen saturation in Arterial blood by Pulse oximetry Body weight Body temperature Heart rate Body height Respiratory rate Systolic And Diastolic Provider Name and Address Organization Details Last Updated DateTime 4 98 % 98 % 74251.0 4 g 98.8 [degF] 78 /min 152.4 cm 18 /min 139/77 mm[Hg] Not Available [facility] - production 4 11:54:32 Date Recorded Body temperature Oxygen saturation Oxygen saturation in Arterial blood by Pulse oximetry Respiratory rate Heart rate Systolic And Diastolic Provider Name and Address Organization Details Last Updated DateTime 4 97.2 [degF] 96 % 96 % 16 /min 88 /min 127/75 mm[Hg] Not Available [facility] - production 4 13:32:36 Date Recorded Respiratory rate Heart rate Body temperature Oxygen saturation Oxygen saturation in Arterial blood by Pulse oximetry Systolic And Diastolic Provider Name and Address Organization Details Last Updated DateTime 3 18 /min 62 /min 97.3 [degF] 99 % 99 % 158/72 mm[Hg] Not Available [facility] - production 3 14:53:01 Date Recorded Body temperature Oxygen saturation Oxygen saturation in Arterial blood by Pulse oximetry Heart rate Respiratory rate Heart rate Oxygen saturation Oxygen saturation in Arterial blood by Pulse oximetry Body temperature Respiratory rate Systolic And Diastolic Systolic And Diastolic Provider Name and Address Organization Details Last Updated DateTime 2 97.9 [degF] 96 % 96 % 77 /min 18 /min 77 /min 96 % 96 % 97.9 [degF] 18 /min 135/84 mm[Hg] 135/84 mm[Hg] Not Available [employer] 2 11:15:04 Social History None recorded. Functional [...] [id number] Ferny Harrison MD Main - [facility] [address] [place] [phone] 04/27/2022 11:06:08 05/02/2022 09:06:31 Cough [id number] R05.9 [id number] Chasity Mark MD Main - [facility] [address] [place] [phone] 02/15/2023 14:52:47 02/15/2023 23:29:56 Viral upper respiratory tract infection [id number] J06.9 Advised to increase p.o. hydration. rest [...] Advised to discuss further with her PCP [id number] Pa Garcia MD Main - [facility] [address] [place] [phone] 06/29/2023 11:10:17 07/21/2023 13:44:47 Low back pain 712075810 M54.50 [id number] Real Mojica MD Main - [facility] [address] [place] [phone] 10/07/2023 13:32:33 10/07/2023 17:22:10 COVID-19 [id number] U07.1 This 68-year-ol d female with COPD [...] Recorded Advance Directives Directive None Recorded Payers Insurance Date Sequence Insurance Name Policy Number Policy Dugan Covered Member ID Dugan Member ID Guarantor Name 02/15/2023 1 [facility] - DOS PRIOR TO 2022 - DUAL ELIGIBLE (MEDICARE REPLACEMENT/ADV ANTAGE - HMO) Sarahy Neves [id number] Sarahy Neves 10/07/2023 1 [facility] - DOS ON OR AFTER 2022 - DUAL ELIGIBLE - LONG-TERM OPTIONS AND ONE CARE (MEDICARE REPLACEMENT/ADV ANTAGE - HMO) Sarahy Neves [id number] Sarahy Neves Notes Date Note Type Note Provider Name and Address Organization Details Recorded Time 04/27/2022 text/html HPI: Mbr [place] [facility] [place] [facility]. Mbr reports not feeling well since 04/23/22. 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 Mbr speaking full clear sentences with this brief writer during call, no signs of SOB, [...] ..................... ..................... ..................... ..................... ..................... ..................... ............... Turbo Generator Oiler Note: Pt presents awake and alert c/o sinus/right ear pressure, congestion, non productive cough, dyspnea with exertion, and fatigue x4 days. Pt denies f/n/v/d, cp, and dizziness. LS: clear/equal bilaterally. Covid, flu, strep neg. [facility] [place]. Pt educated on supportive care and when to go to the ED. ..................... ..................... ..................... ..................... ..................... ..................... ............... Disposition: Fulfilled Ferny Harrison MD [address] [place] [address],[address], [place], [phone], [email or web address] 04/27/2022 16:18:15 02/15/2023 text/html HPI: FRANC is a 68 y/o female with a PMH of asthma, hx thyroid CA, positional vertigo, migraines, seizure disorder, sleep walking disorder, anxiety, HTN, orthostatic hypotension, HLD, non-compliance with medical tx, and depression. FRANC states that she saw her MD in December and he heard wheezing in one of my lower lungs. FRANC has been taking inhalers, which are not helping as much anymore. FRANC states that her lungs have been burning for a week ; she has a dry, nonproductive cough; a runny nose; and weakness. FRANC denies CP, fevers, wheezing, or radiating jaw/back pain. FRANC states she is drinking and peeing fine, but my appetite is terrible because I don t feel well. FRANC is speaking in partial sentences, has [...] to start with an in-home visit first. FRANC s address and phone number on file confirmed. FRANC can be reached at [phone]. ..................... ..................... ..................... ..................... ..................... ..................... ............... [facility] Nursing Assessment: Comments: SOB that started this morning. History of asthma. Taking prescribed inhalers as needed. Used inhaler x1 today. + cough, non-productive x2 days. Voice sounds hoarse. Runny nose. No known fevers. Denies body aches, chills, or sore throat. ..................... ..................... ..................... ..................... ..................... ..................... ............... Turbo Generator Oiler Note From Liban Jacob: PT complains of [...] melena or hematochezia Chasity Mark MD [address] [facility],[address], [place], [address], JONATHAN GRANT 02/16/2023 13:25:30 06/29/2023 text/html HPI: Member calls [...] Rojo): Comments: HPI was reviewed by this brief writer - No further information needed at this time. Waqas AQUINO ..................... ..................... ..................... ..................... ..................... ..................... ............... Turbo Generator Oiler Note From Stacie Han: Sent to a [...] test: neg; 12 lead ECG: uploaded to [employer]. BP:139/77, P:78, RR:18, SpO2:98% RA, T:98.8; Head: sinus tenderness; Throat: erythema noted, no edema or exudate; Chest: bilateral chest tenderness; Lung sounds: clear bilaterally; Abdomen: soft, non-tender, no distention; Back: no tenderness; Extremities: unremarkable; Skin: pink, warm, dry; [facility] [place] and will request earlier follow up appt with PCP. [facility] [place] Ketorolac 15mg IM. Ketorolac 15mg IM administered without incident. Red flags discussed. Pt has no further questions. ..................... ..................... ..................... ..................... ..................... ..................... ............... Disposition: Fulfilled Pa Garcia MD [address] [facility],[address], [place], [phone], JONATHAN GRANT 07/20/2023 08:46:37 10/07/2023 text/html HPI: mbr tested positive for covid on Sunday was prescribed paxlovid, states feeling worse with complaints of increased SOB/N/fever/chills/po or po intake, feeling dizzy lightheaded, and weak. requesting [facility] visit for evaluation Protocol Used: Cough - Acute Productive Protocol-Based Disposition: Consider [facility] Community clinician, MD/TRANSPORTATION ECONOMICS TEACHER triage, PCP, or Urgent Care Visit within [...] needed to process visit -MILES Mclaughlin MD [address] [place] [address],[address] [facility], [place], [phone], [email or web address] 10/07/2023 13:37:29 OBGyn Episode No OBEpisode recorded.
== END 2024-12-18 10:01 | disposition home or self-care (01) ==
LOC: HO.HMCC 08:59
PROVIDERS: PCP Nurse Practitioner Family; Visit Provider Physician Assistant
DX: R55 Syncope and collapse (principal); Z09 Encounter for follow-up examination after completed treatment for conditions other than malignant neoplasm

== ENCOUNTER 2024-12-18 11:09 | Outpatient (REF) | payer OTHER, SELFPAY ==
--- NOTE | ~2024-12-18 | MM_ITS ---
EXAMINATION: DXA BONE DENSITY AXIAL HISTORY: M81.0 - Age-related osteoporosis without current pathological fracture TECHNIQUE: Whisper Dual energy absorptiometry (DEXA) of the lumbar spine, total left hip, and femoral neck was performed. COMPARISON: Comparison is made with the prior examination dated 11/28/2022. FINDINGS: The bone mineral density of the lumbar spine is 1.049 g/cm2, corresponding to a T-score of -1.1, and a Z-score of 0.9. This is indicative of osteopenia. This represents a BMD change of -6.3% compared to the prior exam. This is statistically significant. The bone mineral density of the left total hip is 0.762 g/cm2, corresponding to a T-score of -1.9, and a Z-score of -0.2. This is indicative of osteopenia. This represents a BMD change of -0.7% compared to the prior exam. This is not statistically significant. The bone mineral density of the left femoral neck is 0.723 g/cm2, corresponding to a T-score of -2.3, and a Z-score of -0.3. This is indicative of osteopenia. This represents a BMD change of -4.0% compared to the prior exam. FRACTURE RISK: The FRAX index suggests a ten year probability of major osteoporotic fracture of 13.6%, and of hip fracture 3.3%. MM/XR DEXA axial skeleton IMPRESSION: Based on bone mineral density, and according to World Health Organization (WHO) criteria, the diagnosis is consistent with osteopenia. Statistically, 68% of repeat scans fall within 1 SD (+/- 0.010 g/cm2 for AP spine L1-L4) and 1 SD (+/- 0.012 g/cm2 for femur total) FRAX is a trademark of the [employer]'s [place] for Metabolic Bone Disease, a World Health Organization (WHO) Collaborating Center. Electronically signed by: Mirza Mir MD 12/18/2024 11:56 AM EDT
== END 2024-12-18 11:10 | disposition home or self-care (01) ==
LOC: HO.MAMMO 11:09
PROVIDERS: PCP Nurse Practitioner Family; Visit Provider Internal Medicine Endocrinology, Diabetes & Metabolism
DX: M81.0 Age-related osteoporosis without current pathological fracture (principal); M85.80 Other specified disorders of bone density and structure, unspecified site
CPT/HCPCS: 77080; 96127; 99495

== ENCOUNTER → 2024-12-18 11:30 | Outpatient (BNV) | payer OTHER, SELFPAY | PROVIDERS: PCP Nurse Practitioner Family; Visit Provider Radiology Diagnostic Radiology | DX: E28.39 Other primary ovarian failure (principal) | CPT/HCPCS: 77080 ==

== ENCOUNTER 2024-12-25 11:03 | Outpatient (AMB) | payer OTHER, SELFPAY ==
[2024-12-25 11:26] VITALS: BP 120/78; PULSE 78; O2SAT 97; BMI 21.4
--- NOTE | 2024-12-25 11:26 | MHC.OFFVIS ---
Vital Signs 12/25/24 11:26 Height 5 ft 2 in Weight 117 lb BMI 21.4 BP 120/78 Blood Pressure Location Lt brachial Position Sitting Pulse 78 Pulse Source Pulse Oximeter Pulse Oximetry (%) 97 Oxygen Delivery Method Room Air Intake Visit Reasons: Follow up Intake Note: Patient presents follow up Migraine/Seizure. 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 Required: No Accompanied by: Self / Same As Patient Allergies Penicillins (PENICILLINS) Allergy (Intermediate, Verified 12/25/24 11:30) HIVES carbamazepine (From Tegretol) Allergy (Mild, Verified 12/25/24 11:30) HIVES diflunisal (From Dolobid) Allergy (Mild, Verified 12/25/24 11:30) HIVES erythromycin base (From Edwin-Tab) Allergy (Mild, Verified 12/25/24 11:30) HIVES phenytoin (From Dilantin) Allergy (Mild, Verified 12/25/24 11:30) RASH,HIVES piroxicam (From Feldene) Allergy (Mild, Verified 12/25/24 11:30) HIVES sulfamethoxazole (From Bactrim) Allergy (Mild, Verified 12/25/24 11:30) HIVES trimethoprim (From Bactrim) Allergy (Mild, Verified 12/25/24 11:30) HIVES valproic acid (From Depakene) Allergy (Mild, Verified 12/25/24 11:30) HIVES Depakene Allergy (Unknown, Verified 12/25/24 11:30) Rash hydrochlorothiazide (HYDROCHLOROTHIAZIDE) Allergy (Unknown, Verified 12/25/24 11:30) rash lisinopril (LISINOPRIL) Allergy (Unknown, Verified 12/25/24 11:30) rash codeine (Codeine) Adverse Reaction (Intermediate, Verified 12/25/24 11:30) NAUSEA & VOMITING rash doxycycline Adverse Reaction (Verified 12/25/24 11:30) Stomach Upset ENVIRONMENTAL Allergy (Intermediate, Uncoded 12/08/24 11:47) ASTHMA,LOSES VOICE TAPE,PLASTIC Allergy (Intermediate, Uncoded 12/08/24 11:47) RASH surgical tape Allergy (Unknown, Uncoded 12/08/24 11:47) unknown Medication List - Last Reviewed 12/25/24 by Tiffanie Noonan CMA albuterol sulfate 2.5 mg (3 mL) inhalation QID PRN 90 days albuterol sulfate 90 mcg/actuation 2 puffs PO Q6H PRN aspirin (Adult Low Dose Aspirin) 81 mg PO DAILY atorvastatin 80 mg PO BEDTIME cetirizine (All Day Allergy (cetirizine)) 10 mg PO DAILY PRN 30 days cholecalciferol (vitamin D3) 50 mcg PO DAILY 90 days clonazepam 0.5 mg PO BID docusate sodium 100 mg PO BEDTIME ezetimibe 10 mg PO DAILY fluoxetine mg PO fluticasone propion-salmeterol 250-50 mcg/dose (Wixela Inhub) 1 ea inhalation BID 90 days fluticasone propionate 50 mcg/actuation 1 spray intranasal DAILY 90 days folic acid 0.8 mg PO DAILY galcanezumab-gnlm (Emgality Pen) 120 mg subcut Q30D levothyroxine 25 mcg PO DAILY@0630 [[employer] unit As directed] magnesium oxide 400 mg PO BEDTIME 90 days meclizine 25 mg PO DAILY PRN melatonin 10 mg PO BEDTIME montelukast 10 mg PO BEDTIME oxymetazoline 0.05% (Afrin (oxymetazoline)) 2 sprays intranasal Q12H PRN 3 days riboflavin (vitamin B2) 400 mg PO DAILY 90 days risedronate 35 mg PO MCKEE@0900 sertraline 50 mg PO DAILY sumatriptan succinate 100 mg PO DAILY PRN topiramate 100 mg PO BID 90 days HPI Comments Details: 69-yr-old female presents for f/u visit of functional neurological disorder and migraine. Pt reports she was admitted to [facility] on 01/07/2025 due to passing out and falling while walking at home, she was brought to the ED via EMS. Review of [facility] records: Per [facility] note: ?In the ED pt was hypertensive to 166/95, vitals otherwise stable and WNL. Labs were grossly unremarkable and around baseline for pt. No leukocytosis. Stable H&H. No significant electrolyte abnormalities. Renal and hepatic function baseline. Troponin negative. CT of head showed possible acute/subacute ischemic change in the left parietal lobe. CTA of head/neck without hemodynamically significant stenosis of either head or neck. CT of cervical spine negative for acute abnormality, though showed multilevel degenerative disc disease. Chest and abd/pelvis CT negative for traumatic injury to chest, abdomen, or pelvis. EKG demonstrated normal sinus rhythm without evidence of significant ST elevations or depressions.? Follow-up brain MRI without contrast showed: no acute intracranial findings. Mild diffuse cortical volume loss. Small nonspecific white matter FLAIR hyperintensities. Small fluid in the bilateral mastoid air cells. Otherwise unremarkable exam. Inpatient Neurology was consulted. Patient's syncopal and collapse episode was felt to be consistent with her previous known conversion disorder symptoms. Patient was advised to have outpatient EEG and 30 day Holter monitor. Holter monitor has already been ordered by PCP office. EEG does need to be ordered. They also advise that patient do cognitive behavioral therapy. Patient was discharged with home care services, and is doing home PT Since returning home, patient denies any new focal symptoms. She states she is quite confused as to why she was told she had a stroke, but then told she did not have a stroke. She does feel more brain fog. She is still prone to frequent dizziness, triggered by head movement. States vestibular therapy made her feel nauseous, but was ineffective. She continues to have a daily headache, photophobia, but can not quantify how often she is having a severe migraine. She states that she stopped Emgality some time ago, as she would have severe migraine attack 1 week after each injection. States sumatriptan helps some, when Tylenol does not help. It is unclear if she is taking the sumatriptan at the 1st sign of the headache. She notes some tingling in both feet. Patient states she has started seen at the [facility]. States she has seen him previously which she was at the group home. She states he has change her depression medication from fluoxetine to ? Sertraline. She states she has a follow-up appointment at the end of this month to discuss her response to new antidepressant. She states that she has been sleep walking, but her brother tells her that she has not left the house yet. COUNT INCLUDES THE [facility] Medical History (Updated 12/25/24 @ 14:39 by PRINCE Villalobos) Conversion disorder with attacks or seizures, acute episode, with psychological stressor Falls Anesthesia complication Liver lesion Ingrown toenail Elevated liver enzymes Concussion with loss of consciousness SOB (shortness of breath) Pain of both earlobes Dizziness New onset headache Otitis externa of both ears Acute effusion of right ear Dermatitis Myalgia Headache REM sleep behavior disorder Convulsion disorder COVID-19 Pre-syncope Dyspnea Chest pain Pneumonia Osteoporosis Screening for osteoporosis CKD (chronic kidney disease) Dyslipidemia Hypothyroid Hyperlipemia Ataxic gait Seizures Asthma Depression Conversion disorder HTN (hypertension) Muscle weakness Hypothyroid Surgical History H/O colonoscopy History of right knee surgery History of lobectomy of thyroid History of arthroscopy of right knee History of ankle surgery History of arthroscopy of left knee History of hysterectomy Family History Father CVD (cardiovascular disease) Stomach ulcer Cardiac arrest H/O heart bypass surgery Mother History of heart attack CHF (congestive heart failure) Lung cancer Diabetes mellitus High cholesterol HTN (hypertension) Hypothyroidism Sister Lung cancer Substance use disorder Brother Colitis Sister No problems noted. Sister Obstetric pulmonary blood clot embolism, antepartum Paternal Aunt Mental health disorder Substance use disorder Maternal Grandmother Mental health disorder Family/Other Substance use disorder Social History Household Members: Family Household Members Other:: brother, 2 cats Housing: House Are you a primary client care representative to a significant other at home: No Do you presently have visiting nurse or other home services: No Alcohol intake: never Patient Tobacco Use Status: Never used Tobacco e-Cigarette/Vaping Use: Never Used Second Hand Smoke Exposure: No service: No Current occupational status: disabled Cognitive needs: No Hearing needs: No Vision needs: No Physical Exam Vital Signs: Last Vital Signs Pulse 78 12/25/24 11:26 BP 120/78 12/25/24 11:26 Pulse Ox 97 12/25/24 11:26 Oxygen Delivery Method Room Air 12/25/24 11:26 BMI result Body Mass Index 21.4 Const General: cooperative and no acute distress Orientation/consciousness: patient oriented x3 Resp Effort & Inspection: normal respiratory effort and able to speak in complete sentences Neuro Other: A&O- some STM lapses. Photophobic, which is markedly reduced with application of FL-41 Marisabel tinted blue light blocking glasses. Gait- slow to stand, steady today with walker General: patient oriented x3 Cranial nerves: Yes CN's II-XII intact bilaterally Cognition (Neuro): normal cognition Psych Appearance: grossly normal Mental Status: mental status grossly normal Speech and movement: Clear speech present Affect: normal affect Attitude: cooperative Insight: Limited insight present (Psych) Results Reviewed Results Reviewed: Head CT 12/08/24 12:43 IMPRESSION: Possible acute/subacute ischemic change in the left parietal lobe. Cervical Spine CT 12/08/24 12:43 IMPRESSION: Multilevel degenerative disc disease with uncovertebral and facet arthropathy, most advanced at C5-6. No acute abnormality. Abdomen/Pelvis CT 12/08/24 12:45 IMPRESSION: No evidence of traumatic injury to the chest, abdomen, or pelvis. Please note that evaluation for solid organ injury is limited by lack of intravenous contrast material. Chest CT 12/08/24 12:45 IMPRESSION: No evidence of traumatic injury to the chest, abdomen, or pelvis. Please note that evaluation for solid organ injury is limited by lack of intravenous contrast material. 12/08/24 12:16 MCV 94.6 MCH 30.9 MCHC 32.6 RDW 14.3 Plt Count 249 MPV 9.6 Immature Gran % (Auto) 0.4 Neut % (Auto) 57.5 Lymph % (Auto) 25.0 [place] % (Auto) 11.2 H Eos % (Auto) 4.8 H Baso % (Auto) 1.1 Lymph # (Auto) 1.4 [place] # (Auto) 0.6 Eos # (Auto) 0.3 Baso # (Auto) 0.1 Abs Immat Gran (auto) 0.02 Absolute Neuts (auto) 3.2 Absolute Nucleated RBC 0.000 Nucleated RBC % (auto) 0.0 Anion Gap 10 L Estim Creat Clear Calc 44.0 Estimated GFR 59 Random Glucose 84 Calcium 8.9 Total Bilirubin 0.2 AST 30 ALT 20 Alkaline Phosphatase 66 Troponin I High Sens < 2.7 Total Protein 5.9 L Albumin 3.5 12/08/24 12/08/24 12:16 17:19 Total Creatine Kinase 79 Triglycerides 46 Cholesterol 152 LDL Cholesterol, Calc 66 HDL Cholesterol 77 Urine Color Yellow Urine Appearance Clear Urine pH 6.5 Ur Specific [place] >= 1.030 H Urine Protein Negative Urine Glucose (UA) Negative Urine Ketones Negative Urine Blood Negative Urine Nitrite Negative Ur Leukocyte Esterase Moderate (2+) H Urine RBC 0-2 Urine WBC 11-20 H Ur Squamous Epith Cells 0-2 Urine Bacteria None Seen Hyaline Casts 0-2 12/08/24 17:34 Urine Culture - Preliminary Urine clean catch - Clean Catch Midstream No growth to date. Assessment & Plan Assessment & Plan (1) Syncope and collapse: Code(s): R55 - Syncope and collapse Category: Medical (2) Conversion disorder with attacks or seizures, acute episode, with psychological stressor: Code(s): F44.5 - Conversion disorder with seizures or convulsions Category: Medical (3) Falls: Code(s): W19.XXXA - Unspecified fall, initial encounter Category: Medical Qualifiers: Encounter type: subsequent encounter Qualified Code(s): W19.XXXD - Unspecified fall, subsequent encounter (4) Depression: Code(s): F32.9 - Major depressive disorder, single episode, unspecified Category: Medical Qualifiers: Depression Type: major depressive disorder Major depression recurrence: recurrent Active/Remission status: currently active Major depression episode severity: unspecified Qualified Code(s): F33.9 - Major depressive disorder, recurrent, unspecified (5) Chronic migraine without aura: Code(s): G43.709 - Chronic migraine without aura, not intractable, without status migrainosus Category: Medical Qualifiers: Status migrainosus presence: without status migrainosus Intractability: not intractable Qualified Code(s): G43.709 - Chronic migraine without aura, not intractable, without status migrainosus Plan For recent syncopal event and fall: Reviewed [facility] ER and admission notes, as well as workup. No findings to account for patient's fall. There is mild cortical volume loss and nonspecific white matter changes. Discussed that these findings would not likely be causing her falls, dizziness or syncopal events. Her chronic migraines may be contributing to the nonspecific white matter changes. Reviewed head CT and brain MRI report and images directly with patient, which patient verbalizes has helped her to better understand these findings. Concur with 30 day Holter monitor. Order placed for follow-up EEG. For migraine headache: Continue Roboflavin 400mg qam Continue Magnesium 400mg qhs Continue Topiramate 100mg bid- for headache and convulsion prevention. Patient has self-discontinued Emgality 120 mg subcutaneous monthly- as she felt it was causing a severe migraine 1 week following each injection. Discussed that the Emgality likely was not causing this migraine, and rather that people may have breakthrough migraine even while taking Emgality. However, we will continue to hold Emgality for now. Discussed trialing Namenda ER, starting at 7 mg daily x2 weeks and then increasing by 7 mg every 2 weeks up until 28 mg daily- she may help reduce migraine and brain fog symptoms. We will review with psychiatry before ordering. Patient may also benefit from trying FL-41 Marisbael stented blocking glasses, has application these today markedly reduced her photophobia. Information on the style of glasses shared with patient, and patient advised to discuss with her eye care provider. Continue Tylenol and Sumatriptan prn. ? For recurrent falls, mood, history of sleep walking, [place]: Patient encouraged to do physical therapy as suggested by PCP. Continue increased po intake- try taking several small meals/snacks which include protein and complex CHO. Use walker consistently. Continue Fludrocortisone. Continue Clonazepam 0.5mg bid. We will try to confirm if fluoxetine was truly switched to sertraline. Continue working w/ her therapist. Follow-up w/ as scheduled For lower extremity tingling: Check labs for common etiologies Monitor tremor. Follow-up in clinic in 6 months or sooner prn Orders: Orders EEG electroencephalogram Today R55 - Syncope and collapse Vitamin B1 Today E03.9 - Hypothyroidism, unspecified, E53.8 - Deficiency of other specified B group vitamins, E55.9 - Vitamin D deficiency, unspecified, E63.9 - Nutritional deficiency, unspecified, M81.0 - Age-related osteoporosis without current pathological fracture, R20.0 - Anesthesia of skin, R20.2 - Paresthesia of skin Erythrocyte Sedimentation Rate Today E03.9 - Hypothyroidism, unspecified, E53.8 - Deficiency of other specified B group vitamins, E55.9 - Vitamin D deficiency, unspecified, E63.9 - Nutritional deficiency, unspecified, M81.0 - Age-related osteoporosis without current pathological fracture, R20.0 - Anesthesia of skin, R20.2 - Paresthesia of skin C Reactive Protein Today E03.9 - Hypothyroidism, unspecified, E53.8 - Deficiency of other specified B group vitamins, E55.9 - Vitamin D deficiency, unspecified, E63.9 - Nutritional deficiency, unspecified, M81.0 - Age-related osteoporosis without current pathological fracture, R20.0 - Anesthesia of skin, R20.2 - Paresthesia of skin Complete Blood Count Auto Diff Today E03.9 - Hypothyroidism, unspecified, E53.8 - Deficiency of other specified B group vitamins, E55.9 - Vitamin D deficiency, unspecified, E63.9 - Nutritional deficiency, unspecified, M81.0 - Age-related osteoporosis without current pathological fracture, R20.0 - Anesthesia of skin, R20.2 - Paresthesia of skin Ferritin Today E03.9 - Hypothyroidism, unspecified, E53.8 - Deficiency of other specified B group vitamins, E55.9 - Vitamin D deficiency, unspecified, E63.9 - Nutritional deficiency, unspecified, M81.0 - Age-related osteoporosis without current pathological fracture, R20.0 - Anesthesia of skin, R20.2 - Paresthesia of skin Methylmalonic Acid Today E03.9 - Hypothyroidism, unspecified, E53.8 - Deficiency of other specified B group vitamins, E55.9 - Vitamin D deficiency, unspecified, E63.9 - Nutritional deficiency, unspecified, M81.0 - Age-related osteoporosis without current pathological fracture, R20.0 - Anesthesia of skin, R20.2 - Paresthesia of skin IRON PROFILE Today D64.9 - Anemia, unspecified, E03.9 - Hypothyroidism, unspecified, E53.8 - Deficiency of other specified B group vitamins, E55.9 - Vitamin D deficiency, unspecified, E63.9 - Nutritional deficiency, unspecified, M81.0 - Age-related osteoporosis without current pathological fracture, R20.0 - Anesthesia of skin, R20.2 - Paresthesia of skin TSH reflex Free T4 Today E03.9 - Hypothyroidism, unspecified, E53.8 - Deficiency of other specified B group vitamins, E55.9 - Vitamin D deficiency, unspecified, E63.9 - Nutritional deficiency, unspecified, M81.0 - Age-related osteoporosis without current pathological fracture, R20.0 - Anesthesia of skin, R20.2 - Paresthesia of skin Vitamin B12 and Folate Today E03.9 - Hypothyroidism, unspecified, E53.8 - Deficiency of other specified B group vitamins, E55.9 - Vitamin D deficiency, unspecified, E63.9 - Nutritional deficiency, unspecified, M81.0 - Age-related osteoporosis without current pathological fracture, R20.0 - Anesthesia of skin, R20.2 - Paresthesia of skin Vitamin D 25-OH (D2 and D3) Today E03.9 - Hypothyroidism, unspecified, E53.8 - Deficiency of other specified B group vitamins, E55.9 - Vitamin D deficiency, unspecified, E63.9 - Nutritional deficiency, unspecified, M81.0 - Age-related osteoporosis without current pathological fracture, R20.0 - Anesthesia of skin, R20.2 - Paresthesia of skin Comprehensive Met. Panel Today E03.9 - Hypothyroidism, unspecified, E53.8 - Deficiency of other specified B group vitamins, E55.9 - Vitamin D deficiency, unspecified, E63.9 - Nutritional deficiency, unspecified, M81.0 - Age-related osteoporosis without current pathological fracture, R20.0 - Anesthesia of skin, R20.2 - Paresthesia of skin Homocysteine Today E03.9 - Hypothyroidism, unspecified, E53.8 - Deficiency of other specified B group vitamins, E55.9 - Vitamin D deficiency, unspecified, E63.9 - Nutritional deficiency, unspecified, M81.0 - Age-related osteoporosis without current pathological fracture, R20.0 - Anesthesia of skin, R20.2 - Paresthesia of skin Medications: Refilled fludrocortisone 0.1 mg PO DAILY 90 tabs 1RF for blood pressure 90 days Coding Level of Care Code Est Pt Level 4 (83376) Complex EM visit Add On G2211 Diagnoses Syncope and collapse R55 Conversion disorder with attacks or seizures, acute episode, with psychological stressor F44.5 Fall, subsequent encounter W19.XXXD Encounter type: subsequent encounter Episode of recurrent major depressive disorder, unspecified depression episode severity F33.9 Depression Type: major depressive disorder Major depression recurrence: recurrent Active/Remission status: currently active Major depression episode severity: unspecified Chronic migraine without aura without status migrainosus, not intractable G43.709 Status migrainosus presence: without status migrainosus Intractability: not intractable
--- OUTSIDE RECORDS SUMMARY | 2024-12-25 11:55 | XMS_ITS | Data Portability ---
Author Organization [employer], [facility] [employer] [facility] Address [address] [place] [address] Care Team Providers Care Automotive Professional Name Role Phone HIM CCA OTHER Assessment [...] Assessment and Plan as documented by the Straw Boss. Patient given the opportunity to ask questions. Advised needs close follow-up with PCP however-if not improving she may call for another visit with us and if develops CP/severe SOB/turning blue/uncontrolle d n/v/d or black/bloody emesis or stool/ AMS/ syncope/ hi fever to call 911- she verbalized understanding of instructions to me [email or web address] Not available 02/16/2023 13:22:13 06/29/2023 06/29/2023 I have reviewed and agree with the Assessment and Plan as documented by the Straw Boss. I provided real-time medical direction via phone for this encounter, and was available for additional phone based assistance as needed. I have reviewed and agree with the Assessment and Plan as documented by the Straw Boss. I provided real-time medical direction via phone [...] 2022 023 [email or web address] 0 Main - [facility], [address] [place] [address], [phone] 3 15:01:01 rapid flu (A+B) 2022 023 [email or web address] 0 Main - [facility], [address] [place] [address], [phone] 3 15:01:01 rapid SARS CoV 2 Ag, QL IA, respiratory specimen 2021 022 [email or web address] 5 [facility] - [facility], [address] [place] [address], [phone] 2 16:18:02 rapid flu (A+B) 2021 022 [email or web address] 5 Main - [facility], [address] [place] [address], [phone] 2 16:18:02 rapid strep group A, throat 2021 022 [email or web address] 5 Main - [facility], [address] [place] [address], [address] 2 16:18:02 Referral None recorded. Procedures None recorded. Surgeries None recorded. Imaging None recorded. Medication Orders albuterol sulfate 2.5 mg/3 mL (0.083 %) solution for nebulizatio n 2022 023 [email or web address] 0 Not available 3 15:04:06 albuterol sulfate 2.5 mg/3 mL (0.083 %) solution for nebulizatio n 2022 023 [id number], [address] [place], [place], [phone], 3 15:04:13 prednisone 20 mg tablet 2022 023 [email or web address] 0 Not available 3 15:04:06 prednisone 20 mg tablet 2022 0[address] [id number], [address] [place], [phone], 3 15:04:14 Patient TargetsNo targets recorded. Patient InstructionsNo instructions recorded. Reason for Referral None Reported. Results Created Date Observation Date Name Description Value Unit Range Abnormal Flag Note LastModifiedBy Organization Detail LastModifiedTime 04/27/20 22 04/27/2022 rapid strep group A, throa t Strep negati ve Not Available Main - [facility] ed [address] [place] [address], [phone] 04/27/2022 16:17:34 04/27/20 22 04/27/2022 rapid flu (A+B) Flu negati ve Not Available Main - [facility] ed [address] [place] [address], [phone] 04/27/2022 16:17:30 04/27/20 22 04/27/2022 rapid SARS CoV 2 Ag, QL IA, respi rator y speci men rapid SARS CoV 2 Ag, QL IA, respiratory specimen negati ve Not Available [facility] - [facility] ed [address] [place] [address], [phone] 04/27/2022 16:17:26 02/16/20 23 02/15/2023 rapid flu (A+B) Flu negati ve Not Available Main - [facility] ed [address] [place] [address], [phone] 02/15/2023 15:00:42 02/16/20 23 02/15/2023 rapid SARS CoV 2 Ag, QL IA, respi rator y speci men rapid SARS CoV 2 Ag, QL IA, respiratory specimen negati ve Not Available [facility] - [facility] ed [address] [place] [address], [phone] 02/15/2023 15:00:34 Result Notes None recorded. Medical Equipment None Reported. Allergies Allergen ID Allergen Name Allergen Category Reaction Reaction Severity Criticality Documentation Date Start Date Code Code System Note Provider Name and Address Organization Details Recorded Time 3232 Depakene medicatio n Not available Not available Not available 02/16/2023 5 RxNorm Chasity Mark MD [address] [place] [address],[address], [place], [address], [email or web address] [place] - [employer], [employer] 3 13:18:24 3233 Dilantin medicatio n Not available Not available Not available 02/16/2023 0 RxNorm Chasity Mark MD [address] [place] [address],[address], [place], [phone], [employer] - [employer], [employer] 13:18:32 3234 Tegretol medicatio n Not available Not available Not available 02/16/2023 9 RxNorm Chasity Mark MD [address] [place] [address],[address], [place], [phone], [employer] - [employer], [employer] 13:18:53 3235 erythromy akhil medicatio n Not available Not available Not available 02/16/2023 4053 RxNorm and ilosi ne Chasity Mark MD [address] [place] [address],[address], [place], [phone], [employer] - [employer], [employer] 13:19:12 3236 Feldene medicatio n Not available Not available Not available 02/16/202319718 8 RxNorm Chasity Mark MD [address] [place] [address],[address], [place], [address], [employer] - [employer], [employer] 13:19:27 3237 Dolobid medicatio n Not available Not available Not available 02/16/202313915 6 RxNorm Chasity Mark MD [address] [place] [address],[address], [place], [address], [employer], [employer] 13:19:35 3238 Substance with sulfonami de structure and antibacte rial mechanism of action (substanc e) medicatio n Not available Not available Not available 02/16/2023 18977 8003 SNOMED Chasity Mark MD [address] [place] [address],[address], [place], [address], [employer] 3 13:19:43 3239 Product containin g penicilli n (product) medicatio n Not available Not available Not available 02/16/2023 77289 8001 SNOMED Not Available [facility] - [employer] 4 03:34:14 3240 codeine medicatio n Not available Not available Not available 02/16/2023 2670 RxNorm Chasity Mark MD [address] [place] [address],[address], [place], [address], [employer] 3 13:20:02 3241 lisinopri l medicatio n Not available Not available Not available 02/16/2023 61236 RxNorm She was on lisin opril /hydr ochlo rothi azide and does not know which moiet y she had the react ion to Chasity Mark MD [address] [place] [address],[address], [place], [address], [employer] 3 13:20:49 3242 adhesive tape environme nt,medica tion Not available Not available Not available 02/16/2023 04158 UNK Chasity Mark MD [address] [place] [address],[address], [place], [address], [employer] 3 13:21:07 7004 Bactrim medicatio n Not available Not available Not available 04/08/2024 01397 9 RxNorm Not Available [facility] 4 03:34:14 Medications Name [...] Updated DateTime 4 98 % 98 % 92988.0 4 g 98.8 [degF] 78 /min 152.4 cm 18 /min 139/77 mm[Hg] Not Available [facility] - production 4 11:54:32 Date Recorded Body [...] % 99 % 158/72 mm[Hg] Not Available [employer] - production 3 14:53:01 Date Recorded Body [...] /min 135/84 mm[Hg] 135/84 mm[Hg] Not Available [employer] 2 11:15:04 Social History None recorded. Functional [...] [id number] Ferny Harrison MD Main - [facility] [address] [place] [phone] 04/27/2022 11:06:08 05/02/2022 09:06:31 Cough 88022419 R05.9 [id number] Chasity Mark MD Main - [facility] [address] [place] [phone] 02/15/2023 14:52:47 02/15/2023 23:29:56 Viral upper respiratory tract infection [id number] J06.9 Advised to increase p.o. hydration. rest [...] Advised to discuss further with her PCP [id number] Pa Garcia MD Main - [facility] [address] [place] [phone] 06/29/2023 11:10:17 07/21/2023 13:44:47 Low back pain [id number] M54.50 [id number] Real Mojica MD Main - [facility] [address] [place] [phone] 10/07/2023 13:32:33 10/07/2023 17:22:10 COVID-19 [id number] U07.1 This 68-year-ol d female with COPD [...] Dugan Member ID Guarantor Name 02/15/2023 1 [facility] - DOS PRIOR TO 2022 - DUAL ELIGIBLE (MEDICARE REPLACEMENT/ADV ANTAGE - HMO) Sarahy Neves [id number] Sarahy Neves 10/07/2023 1 [facility] - DOS ON OR AFTER 2022 - DUAL ELIGIBLE - [facility] OPTIONS AND ONE CARE (MEDICARE REPLACEMENT/ADV ANTAGE - HMO) Sarahy Neves [id number] Sarahy Neves Notes Date Note Type Note Provider Name and Address Organization Details Recorded Time 04/27/2022 text/html HPI: [place] 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 Mbr speaking full clear sentences with this verse writer during call, no signs of SOB, [...] ..................... ..................... ..................... ..................... ..................... ..................... ............... Straw Boss Note: Pt presents awake and alert c/o sinus/right ear pressure, congestion, non productive cough, dyspnea with exertion, and fatigue x4 days. Pt denies f/n/v/d, cp, and dizziness. LS: clear/equal bilaterally. Covid, flu, strep neg. [facility] contacted. Pt educated on supportive care and when to go to the ED. ..................... ..................... ..................... ..................... ..................... ..................... ............... Disposition: Fulfilled Ferny Harrison MD [address] [place] [address],[address], [place], [phone], [employer] 04/27/2022 16:18:15 02/15/2023 text/html HPI: FRANC is [...] file confirmed. FRANC can be reached at [phone]. ..................... ..................... ..................... ..................... ..................... ..................... ............... [facility] Nursing Assessment: Comments: SOB that started this morning. History of asthma. Taking prescribed inhalers as needed. Used inhaler x1 today. + cough, non-productive x2 days. Voice sounds hoarse. Runny nose. No known fevers. Denies body aches, chills, or sore throat. ..................... ..................... ..................... ..................... ..................... ..................... ............... Straw Boss Note From Liban Jacob: PT complains of [...] melena or hematochezia Chasity Mark MD [address] [facility],[address], [place], [phone], JONATHAN GRANT 02/16/2023 13:25:30 06/29/2023 text/html HPI: [...] Rojo): Comments: HPI was reviewed by this verse writer - No further information needed at this time. Waqas AQUINO ..................... ..................... ..................... ..................... ..................... ..................... ............... Straw Boss Note From Stacie Han: Sent to a [...] test: neg; 12 lead ECG: uploaded to [employer]. BP:139/77, P:78, RR:18, SpO2:98% RA, T:98.8; Head: sinus tenderness; Throat: erythema noted, no edema or exudate; Chest: bilateral chest tenderness; Lung sounds: clear bilaterally; Abdomen: soft, non-tender, no distention; Back: no tenderness; Extremities: unremarkable; Skin: pink, warm, dry; [facility] consulted and will request earlier follow up appt with PCP. [facility] orders Ketorolac 15mg IM. Ketorolac 15mg IM administered without incident. Red flags discussed. Pt has no further questions. ..................... ..................... ..................... ..................... ..................... ..................... ............... Disposition: Fulfilled Pa Garcia MD [address] [facility],[address], [place], [address], JONATHAN GRANT 07/20/2023 08:46:37 10/07/2023 text/html HPI: mbr tested positive for covid on Sunday was prescribed paxlovid, states feeling worse with complaints of increased SOB/N/fever/chills/po or po intake, feeling dizzy lightheaded, and weak. requesting [facility] visit for evaluation Protocol Used: Cough - Acute Productive Protocol-Based Disposition: Consider [facility] clinician, MD/INBOUND INGREDIENT LOGISTICS SPECIALIST triage, PCP, or Urgent Care Visit within [...] needed to process visit -MILES Mclaughlin MD [address] [place] [address],[address] [facility], [place], [phone], [employer] 10/07/2023 13:37:29 OBGyn Episode No OBEpisode recorded.
--- OUTSIDE RECORDS SUMMARY | 2024-12-25 11:55 | XMS_ITS | Clinical Summary ---
Author Organization [facility] ity Address [address] [place] [address] Care Team Providers Care Ladle Repairman Name Role Phone Unavailable Primary Care Provider [...]
== END 2024-12-25 12:39 | disposition home or self-care (01) ==
LOC: HO.HSMS 11:04
PROVIDERS: PCP Nurse Practitioner Family; Visit Provider Nurse Practitioner Family
DX: R55 Syncope and collapse (principal); F44.5 Conversion disorder with seizures or convulsions; W19.XXXD Unspecified fall, subsequent encounter; F33.9 Major depressive disorder, recurrent, unspecified; G43.709 Chronic migraine without aura, not intractable, without status migrainosus
CPT/HCPCS: 99214; G2211

== ENCOUNTER → 2024-12-25 11:03 | Outpatient (BNVA) | payer OTHER, SELFPAY | PROVIDERS: PCP Nurse Practitioner Family; Visit Provider Nurse Practitioner Family | DX: F44.5 Conversion disorder with seizures or convulsions (principal); G43.709 Chronic migraine without aura, not intractable, without status migrainosus; R55 Syncope and collapse; F33.9 Major depressive disorder, recurrent, unspecified; Z91.81 History of falling | CPT/HCPCS: 99212 ==

== ENCOUNTER 2024-12-31 09:57 | Outpatient (REF) | payer OTHER, SELFPAY ==
--- OUTSIDE RECORDS SUMMARY | 2024-11-25 07:50 | XMS_ITS ---
Author Organization [facility] Address [address] [place] [address] Care Team Providers Care Hearing Examiner Name Role Phone MANDO TAMAYO Primary Care Provider Philippe Tsai Jr [phone] REASON FOR VISIT screening Encounters Encounter Location Date Provider Diagnosis [facility] [place] [address] [place] [id number] 11/25/2024 Philippe Price Jr Colon cancer screening Z12.11 and Personal history of adenomatous and serrated colon polyps Z86.0101 Assessments Encounter Date Diagnosis (ICD Code) Assessment Notes Treatment Notes Treatment Clinical Notes Section Notes 11/25/2024 Colon cancer screening (ICD-10 - Z12.11) 11/25/2024 Personal history of adenomatous and serrated colon polyps (ICD-10 - Z86.0101) Plan Of Treatment No Information Progress Notes * SWATHI BANDAOB: [birth year] (69 yo F)Acc No.[id number]:11/25/2024 COLON WITH MAC Patient: Allison NOWAK DWAIN Provider: Allison Price MD :1955 A ge:69 Y S ex:Female Date:11/25/2024 Address:[address] [place], [place] [address] Pcp:MANDO TAMAYO Subjective: * Chief Complaints: * [...] 11/25/2024 Generated for Elisa barbosa/Silas/Matiitting on: 0 12/31/2024 10:52 AM EDT
--- OUTSIDE RECORDS SUMMARY | 2024-12-31 10:52 | XMS_ITS | Clinical Summary ---
Author Organization [facility] ity Address [address] [place] [address] Care Team Providers Care Manager Parking Name Role Phone Unavailable Primary Care Provider [...] Vaccine (1 - 2023-2 5 season) 2024 Depression Screening 06/11/2024 Influenza Vaccine (#1) 2025 RSV Immunization Adult [...]
--- OUTSIDE RECORDS SUMMARY | 2024-12-31 10:53 | XMS_ITS | Data Portability ---
Author Organization [facility], [facility] Address [address] [place] [address] Care Team Providers Care Smeller Name Role Phone HIM CCA OTHER Assessment [...] Assessment and Plan as documented by the Radio Commentator. Patient given the opportunity to ask questions. Advised needs close follow-up with PCP however-if not improving she may call for another visit with us and if develops CP/severe SOB/turning blue/uncontrolle d n/v/d or black/bloody emesis or stool/ AMS/ syncope/ hi fever to call 911- she verbalized understanding of instructions to me [email or web address] Not available 02/16/2023 13:22:13 06/29/2023 06/29/2023 I have reviewed and agree with the Assessment and Plan as documented by the Radio Commentator. I provided real-time medical direction via phone for this encounter, and was available for additional phone based assistance as needed. I have reviewed and agree with the Assessment and Plan as documented by the Radio Commentator. I provided real-time medical direction via phone [...] 2022 023 [email or web address] 0 Main - [facility], [address] [place] [address], [phone] 3 15:01:01 rapid flu (A+B) 2022 023 [email or web address] 0 Main - [facility], [address] [place] [address], [phone] 3 15:01:01 rapid SARS CoV 2 Ag, QL IA, respiratory specimen 2021 022 [email or web address] 5 [facility] - [facility], [address] [place] [address], [phone] 2 16:18:02 rapid flu (A+B) 2021 022 [email or web address] 5 Main - [facility], [address] [place] [address], [phone] 2 16:18:02 rapid strep group A, throat 2021 022 [email or web address] 5 Main - [facility], [address] [place] [address], [phone] 2 16:18:02 Referral None recorded. Procedures None recorded. Surgeries None recorded. Imaging None recorded. Medication Orders albuterol sulfate 2.5 mg/3 mL (0.083 %) solution for nebulizatio n 2022 023 [email or web address] 0 Not available 3 15:04:06 albuterol sulfate 2.5 mg/3 mL (0.083 %) solution for nebulizatio n 2022 023 SAADIA [id number], [address], [place], [id number], 3 15:04:13 prednisone 20 mg tablet 2022 023 [email or web address] 0 Not available 3 15:04:06 prednisone 20 mg tablet 2022 023 BENHAM [id number], [address] [place], [place], [phone], 3 15:04:14 Patient TargetsNo targets recorded. Patient InstructionsNo instructions recorded. Reason for Referral None Reported. Results Created Date Observation Date Name Description Value Unit Range Abnormal Flag Note LastModifiedBy Organization Detail LastModifiedTime 04/27/20 22 04/27/2022 rapid strep group A, throa t Strep negati ve Not Available Main - [facility] ed [address] [place] [address], [phone] 04/27/2022 16:17:34 04/27/20 22 04/27/2022 rapid flu (A+B) Flu negati ve Not Available Main - [facility] ed [address] [place] [address], [phone] 04/27/2022 16:17:30 04/27/20 22 04/27/2022 rapid SARS CoV 2 Ag, QL IA, respi rator y speci men rapid SARS CoV 2 Ag, QL IA, respiratory specimen negati ve Not Available [facility] - [facility] ed [address] [place] [address], [phone] 04/27/2022 16:17:26 02/16/20 23 02/15/2023 rapid flu (A+B) Flu negati ve Not Available Main - [facility] ed [address] [place] [address], [phone] 02/15/2023 15:00:42 02/16/20 23 02/15/2023 rapid SARS CoV 2 Ag, QL IA, respi rator y speci men rapid SARS CoV 2 Ag, QL IA, respiratory specimen negati ve Not Available [facility] - [facility] ed [address] [place] [address], [phone] 02/15/2023 15:00:34 Result Notes None recorded. Medical Equipment None Reported. Allergies Allergen ID Allergen Name Allergen Category Reaction Reaction Severity Criticality Documentation Date Start Date Code Code System Note Provider Name and Address Organization Details Recorded Time 3232 Depakene medicatio n Not available Not available Not available 02/16/2023 5 RxNorm Chasity Mark MD [address] [place] [address],[address], [place], [address], [employer] [place] - [employer], [employer] 3 13:18:24 3233 Dilantin medicatio n Not available Not available Not available 02/16/2023 0 RxNorm hCasity Mark MD [address] [place] [address],[address], [place], [address], [employer] - [employer], [employer] 13:18:32 3234 Tegretol medicatio n Not available Not available Not available 02/16/2023 9 RxNorm Chasity Mark MD [address] [place] [address],[address], [place], [address], [employer] - [employer], [employer] 13:18:53 3235 erythromy akhil medicatio n Not available Not available Not available 02/16/2023 4053 RxNorm and ilosi ne Chasity Mark MD [address] [place] [address],[address], [place], [address], [employer] - [employer], [employer] 13:19:12 3236 Feldene medicatio n Not available Not available Not available 02/16/202319718 8 RxNorm Chasity Mark MD [address] [place] [address],[address], [place], [address], [employer] - [employer], [employer] 13:19:27 3237 Dolobid medicatio n Not available Not available Not available 02/16/202310828 6 RxNorm Chasity Mark MD [address] [place] [address],[address], [place], [address], [employer], [employer] 13:19:35 3238 Substance with sulfonami de structure and antibacte rial mechanism of action (substanc e) medicatio n Not available Not available Not available 02/16/2023 18765 8003 SNOMED Chasity Mark MD [address] [place] [address],[address], [place], [address], [employer] 3 13:19:43 3239 Product containin g penicilli n (product) medicatio n Not available Not available Not available 02/16/2023 08703 8001 SNOMED Not Available [facility] - production 4 03:34:14 3240 codeine medicatio n Not available Not available Not available 02/16/2023 2670 RxNorm Chasity Mark MD [address] [place] [address],[address], [place], [address], [employer] 3 13:20:02 3241 lisinopri l medicatio n Not available Not available Not available 02/16/2023 58969 RxNorm She was on lisin opril /hydr ochlo rothi azide and does not know which moiet y she had the react ion to Chasity Mark MD [address] [place] [address],[address], [place], [address], [employer] 3 13:20:49 3242 adhesive tape environme nt,medica tion Not available Not available Not available 02/16/2023 41501 UNK Chasity Mark MD [address] [place] [address],[address], [place], [address], [employer] 3 13:21:07 7004 Bactrim medicatio n Not available Not available Not available 04/08/2024 56849 9 RxNorm [facility] Available [facility] 03:34:14 Medications Name Sig [...] Updated DateTime 4 98 % 98 % 98812.0 4 g 98.8 [degF] 78 /min 152.4 cm 18 /min 139/77 mm[Hg] Not Available [facility] - production 4 11:54:32 Date Recorded Body [...] % 99 % 158/72 mm[Hg] Not Available [facility] - production 3 14:53:01 Date Recorded Body [...] /min 135/84 mm[Hg] 135/84 mm[Hg] Not Available [facility] 2 11:15:04 Social History None recorded. Functional [...] 5397 Ferny Harrison MD Main - [facility] [address] [place] [phone] 04/27/2022 11:06:08 05/02/2022 09:06:31 Cough 11141074 R05.9 50907 Chasity Mark MD Main - [facility] [address] [place] [phone] 02/15/2023 14:52:47 02/15/2023 23:29:56 Viral upper respiratory tract infection 493719153 J06.9 Advised to increase p.o. hydration. rest [...] Advised to discuss further with her PCP 15491 Pa Garcia MD Main - [facility] [address] [place] [phone] 06/29/2023 11:10:17 07/21/2023 13:44:47 Low back pain 330079546 M54.50 11617 Real Mojica MD Main - [facility] [address] [place] [phone] 10/07/2023 13:32:33 10/07/2023 17:22:10 COVID-19 [id number] U07.1 This 68-year-ol d female with COPD [...] Dugan Member ID Guarantor Name 02/15/2023 1 [facility] - DOS PRIOR TO 2022 - DUAL ELIGIBLE (MEDICARE REPLACEMENT/ADV ANTAGE - HMO) Sarahy Neves [id number] Sarahy Neves 10/07/2023 1 [facility] - DOS ON OR AFTER 2022 - DUAL ELIGIBLE - LONGTERM OPTIONS AND ONE CARE (MEDICARE REPLACEMENT/ADV ANTAGE - HMO) Sarahy Neves [id number] Sarahy Neves Notes Date Note Type Note Provider Name and Address Organization Details Recorded Time 04/27/2022 text/html HPI: Mbr transferred to [facility] from [facility]. Mbr reports not feeling well since 04/23/22. 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 Mbr speaking full clear sentences with this food writer during call, no signs of SOB, [...] ..................... ..................... ..................... ..................... ..................... ..................... ............... Radio Commentator Note: Pt presents awake and alert c/o sinus/right ear pressure, congestion, non productive cough, dyspnea with exertion, and fatigue x4 days. Pt denies f/n/v/d, cp, and dizziness. LS: clear/equal bilaterally. Covid, flu, strep neg. [facility] contacted. Pt educated on supportive care and when to go to the ED. ..................... ..................... ..................... ..................... ..................... ..................... ............... Disposition: Fulfilled Ferny Harrison MD [address] [place] [address],[address], [place], [address], [facility] 04/27/2022 16:18:15 02/15/2023 text/html ROS as noted in the HPI HPI: FRANC is a 68 y/o female [...] file confirmed. FRANC can be reached at [phone]. ..................... ..................... ..................... ..................... ..................... ..................... ............... CRC Nursing Assessment: Comments: SOB that started this morning. History of asthma. Taking prescribed inhalers as needed. Used inhaler x1 today. + cough, non-productive x2 days. Voice sounds hoarse. Runny nose. No known fevers. Denies body aches, chills, or sore throat. ..................... ..................... ..................... ..................... ..................... ..................... ............... Radio Commentator Note From Liban Jacob: PT complains of [...] melena or hematochezia Chasity Mark MD [address] [facility],[address], [place], [address], [place] [facility] 02/16/2023 13:25:30 06/29/2023 text/html HPI: Member calls [...] Rojo): Comments: HPI was reviewed by this food writer - No further information needed at this time. Waqas AQUINO ..................... ..................... ..................... ..................... ..................... ..................... ............... Radio Commentator Note From Stacie Han: Sent to a [...] test: neg; 12 lead ECG: uploaded to [employer]. BP:139/77, P:78, RR:18, SpO2:98% RA, T:98.8; Head: sinus tenderness; Throat: erythema noted, no edema or exudate; Chest: bilateral chest tenderness; Lung sounds: clear bilaterally; Abdomen: soft, non-tender, no distention; Back: no tenderness; Extremities: unremarkable; Skin: pink, warm, dry; [facility] consulted and will request earlier follow up appt with PCP. [facility] orders Ketorolac 15mg IM. Ketorolac 15mg IM administered without incident. Red flags discussed. Pt has no further questions. ..................... ..................... ..................... ..................... ..................... ..................... ............... Disposition: Fulfilled Pa Garcia MD [address] [facility],[address], [place], [address], [facility] - JONATHAN MCDANIEL 07/20/2023 08:46:37 10/07/2023 text/html ROS as noted in the HPI HPI: mbr tested positive for covid on Sunday was prescribed paxlovid, states feeling worse with complaints of increased SOB/N/fever/chills/po or po intake, feeling dizzy lightheaded, and weak. requesting [facility] for [facility] Protocol Used: Cough - Acute Productive Protocol-Based Disposition: Consider MISTY Mcdaniel Community clinician, MD/SENIOR TELECOMMUNICATIONS SPECIALIST triage, PCP, or Urgent Care Visit [...] needed to process visit -MILES Mclaughlin MD [address] [place] [address],[address] [facility], [place], [address], [facility] 10/07/2023 13:37:29 OBGyn Episode No OBEpisode recorded.
--- OUTSIDE RECORDS SUMMARY | 2024-12-31 10:53 | XMS_ITS | Patient Health Record ---
[facility] Organization [facility] Address [address] [facility] [address] [place] [address] Care Team Providers Care Supervisor Stave Cutting Name Role Phone Case Duff Primary Care Provider Sebastien Byrnes Unavailable [phone] [facility]OO Unavailable [phone] Allergies Allergen (clinical drug ingredient) Drug/Non Drug [...] convulsions (F44.5) Active confirmed Problem Mood disorder (44014381) Mood disorder (F39) Active confirmed Problem Seizure disorder (911261930) Seizure disorder (G40.909) Active confirmed Problem Sleep disturbance (17657269) Sleep disturbance, unspecified (G47.9) Active confirmed Vital Signs Heart Rate 79 /min 11/20/2024 Blood pressure diastolic 75 mm Hg 11/20/2024 Height 60 in 11/20/2024 Blood pressure systolic 129 mm Hg 11/20/2024 Weight 115 lbs 11/20/2024 BMI 22.46 kg/m2 11/20/2024 Encounters Encounter Location Date Provider Diagnosis [address] [address] 11/20/2024 [facility] 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 [address], [place], [address], Insurance Providers Payer Name Payer Address Payer Phone Subscriber Number Group Number Insured Name Patient Relationship to Insured Coverage Start Date Coverage End Date [facility] [address] [place] [address] [id number] Sarahy Neves Self - patient is the insured MEDICARE [address] [facility] [place] [id number] Sarahy Neves Self - patient is the insured [facility] [address] [place] [address] [id number] Sarahy Neves Self - patient is the [...]
--- OUTSIDE RECORDS SUMMARY | 2024-12-31 10:53 | XMS_ITS | Clinical Summary ---
Author Organization [facility] Address [address] [place] [address] Phone Care Team Providers Care Tie Sawyer Name Role Phone Case Duff MINE SAFETY DIRECTOR Primary Care Provider + Allergies Active Allergy Reactions Criticality Noted Date Comments Sulfamethoxazole-Trimethoprim 2018 Codeine 02/07/2019 Valproic Acid (As Sodium Salt) 02/07 Phenytoin 02/07/2019 Piroxicam 02/07/2019 Lisinopril 02/07/2019 Penicillins 02/07/2019 Sulfa (Sulfonamide Antibiotics) 01/11 Adhesive Tape-Silicones 02/07/2019 Carbamazepine 02/07/2019 Medications fluticasone propion-salmete rol (ADVAIR DISKUS) 250-50 mcg/dose DISKUS Inhale 1 puff into the lungs. Active albuterol (ACCUNEB) 0.63 mg/3 mL nebulizer solution Take 1 ampule by nebulization every 6 (six) hours as needed for wheezing. Active levothyroxine (SYNTHROID,LEVO THROID) 25 MCG tablet Take 25 mcg by mouth every morning. Active atorvastatin (LIPITOR) 40 MG tablet Take 40 mg by mouth daily. Active clonazePAM (KLONOPIN) 1 MG tablet Take 1 mg by mouth every morning. Active clonazePAM (KLONOPIN) 0.5 MG tablet Take 0.5 mg by mouth Every Afternoon. Active clonazePAM (KLONOPIN) 0.5 MG tablet Take 0.5 mg by mouth nightly at bedtime. Active traZODone (DESYREL) 50 MG tablet Take 50 mg by mouth nightly at bedtime as needed. Active traZODone (DESYREL) 100 MG tablet Take 100 mg by mouth nightly at bedtime as needed. Active montelukast (SINGULAIR) 10 mg tablet Take 10 mg by mouth nightly at bedtime. Active SUMAtriptan (IMITREX) 100 MG tablet Take 100 mg by mouth every 2 (two) hours as needed for migraine. Not to exceed 200 mg/day Active ibuprofen (ADVIL,MOTRIN) 400 MG tablet Take 400 mg by mouth every 8 (eight) hours as needed for pain (specific location in comments). Active nystatin (MYCOSTATIN) 500,000 unit tablet Take 1 tablet by mouth. Active topiramate (TOPAMAX) 100 MG tablet Take 100 mg by mouth 2 (two) times a day. Active meclizine (ANTIVERT) 25 MG tablet Take 25 mg by mouth 2 (two) times a day as needed. Active FLUoxetine (PROZAC) 20 MG capsule Take 20 mg by mouth daily. Active aspirin 81 MG EC tablet Take 81 mg by mouth daily. Active polyethylene glycol (MIRALAX) 17 gram packet Take 17 g by mouth daily. Active docusate sodium (COLACE) 100 MG capsule Take 100 mg by mouth 2 (two) times a day as needed for constipation. Active senna (SENOKOT) 8.6 mg tablet Take 1 tablet by mouth daily. Active cholecalciferol (VITAMIN D3) 25 MCG (1,000 unit) tablet Take 1,000 Units by mouth daily. Active prazosin (MINIPRESS) 1 MG capsule Take 1 mg by mouth nightly at bedtime as needed (night terrors). Active prazosin (MINIPRESS) 2 MG capsule Take 2 mg by mouth nightly at bedtime as needed (night terrors). Active Social History Tobacco Use Types Packs/Day Years Used Date Smoking Tobacco: Never Smokeless Tobacco: Never Alcohol Use Standard Drinks/Week Comments Not Currently 0 (1 standard drink = 0.6 oz pur e alcohol) Education Answer Date Recorded Are you interested in more education? Not on queta e 10/06/2022 Are you concerned about learning? Not on file 10/06/2022 No 10/06/2022 No 10/06/2022 Digital Access Answer Date Recorded No 11/04/2022 No 11/04/2022 No 11/04/2022 Reliable internet access at home? Not on file 11/04/2022 Device with a working camera? Not on file Comments Unknown Sex and Gender Information Value Date Recorded Sex Assigned at Female 02/07/2019 11:05 AM EDT Legal Sex Female 10:23 AM EDT Gender Identity Female 02/07/2019 11:05 AM EDT Sexual Orientation Not on file Last Filed Vital Signs Vital Sign Reading Time Taken Comments Blood Pressure 124/78 02/09/2019 12:09 PM EDT Pulse 72 02/09/2019 12:09 PM EDT Temperature 36.2 C (97.2 F) 02/09/2019 12:09 PM EDT Respiratory Rate 16 02/09/2019 12:09 PM EDT Oxygen Saturation 98% 02/09/2019 12:09 PM EDT Inhaled Oxygen Concentration - - Weight 57.2 kg (126 lb) 02/07/2019 10:38 AM EDT Height 152.4 cm (5') 02/07/2019 10:38 AM EDT Body Mass Index 24.61 02/07/2019 10:38 AM EDT Plan of Treatment Health Maintenance Due Date Last Done Comments Adult Td,Tdap Booster 1954 LIPID PANEL 1954 TSH LEVEL 1954 DEPRESSION SCREENING 1966 HEPATITIS C SCREENING 01/05/1972 MAMMOGRAM 1994 COLOGUARD 1999 COLONOSCOPY 1999 COLORECTAL CANCER SCREENING 1999 FIT TEST 1999 FOBT 1999 SIGMOIDOSCOPY 1999 VIRTUAL COLONOSCOPY 1999 PNEUMOCOCCAL VACCINES (50+ y ears) (1 of 1 - PCV) 01/05/2004 ZOSTER VACCINES (1 of 2) 01/05/2004 OSTEOPOROSIS SCREENING INITI AL (ONE-TIME) 2019 COVID-19 VACCINE (1 - 2023-2 5 season) 2024 RSV VACCINE (1 - 1-dose 75+ series) 2029 SMOKING STATUS SCREENING (On ce After 26 Yrs) Completed 02/07/2019 HEPATITIS A VACCINES Aged Out No long er eligible based on patient's age to complete this topic HIB VACCINES Aged Out No longer eligi ble based on patient's age to complete this topic MENINGOCOCCAL VACCINES (ACWY) Aged Out No longer eligible based on patient's age to complete this topic MENINGOCOCCAL VACCINES (B) Aged Out N o longer eligible based on patient's age to complete this topic Medical Devices Not on file Insurance MEDICARE PART A & B [facility] MEDIC[facility] REPLACEMENT [place] [id number] MEDICARE PART A & B [facility] MEDICARE REPLACEMENT MEDICARE PART A & B [facility] MEDICARE REPLACEMENT MEDICARE PART A & B Member Subscriber Plan / Payer (Ef fective 2019-Present) Name:Sarahy Neves Member ID:[id number] Relation to Subscriber:Self Name:Sarahy Neves Subscriber ID:[id number] Payer ID:[id number] Group ID:Not on file Type:Medicare Address: [employer] [address] MEDICARE REPLACEMENT [place] [id number] MEDICARE PART A & B Member Subscriber Plan / Payer (Ef fective 2019-Present) Name:Sarahy Neves Member ID:[id number] Relation to Subscriber:Self Name:Sarahy Neves Subscriber ID:[id number] Payer ID:[id number] Group ID:Not on file Type:Medicare Address: [employer] [address] [place] [id number] [place] [address] MEDICARE REPLACEMENT MEDICARE PART A & B MEDICARE REPLACEMENT RE[place] [id number] MEDICARE PART A & B MEDICARE REPLACEMENT MEDICARE PART A & B [facility] MEDICARE REPLACEMENT [place] [id number] MEDICARE PART A & B [facility] MEDICARE REPLACEMENT Advance Directives For more information, please contact: [phone] (9AM - 5PM [facility], Sunday-Sunday) Documents on File Type Date Recorded Patient Restorer [employer] Expl anation Healthcare Proxy 02/13/2019 1:15 PM Healthcare Agents on File Name Relationship Healthcare Agent Relationship Communication Ariel Neves Brother .Primary Health Care Agent (Proxy form on file) [employer] Mojica Sister Alternate Health care Agent (Proxy form on file) Care Teams Tie Sawyer Relationship Specialty Start Date End Date Case Duff NP [address] [place] [address] [email or web address] PCP - General Family Medicine 02/07/19 Additional Source Comments The information contained in this document represents components of the legal health record. It is not the complete legal health record.[facility]
[2024-12-31 13:10] LABS: MANUAL DIFF FLAG NO
[2024-12-31 13:37] LABS: Hematocrit 40.6 % (37.0-47.0); Hemoglobin 12.7 g/dl (12.0-16.0); Imm Gran Abs Auto 0.01 X10*3/uL (0.00-0.03); Imm Gran Pct Auto 0.2 % (0.0-0.4); Lymphocytes Absolute Auto 1.3 X10*3/uL (1.2-4.9); Mean Corpuscular HGB Conc 31.3 g/dl (31.0-35.0); Mean Corpuscular Hemoglobin 29.8 pg (27.0-33.0); Mean Corpuscular Volume 95.3 fL (80.0-98.0); NRBC Abs Auto 0.000 X10*3/uL (0.0-0.012); NRBC Pct Auto 0.0 /100WBC (0.0-0.2); Platelet Count 314 X10*3/uL (160-400); Red Blood Count 4.26 X10*6/uL (4.20-5.50); White Blood Count 5.2 X10*3/uL (4.8-10.8)
[2024-12-31 13:42] LABS: Appearance Urine Clear; Glucose Urine UA Negative (Negative); PH 7.0 (5.0-9.0); Specific Gravity - Urine <= 1.005 (1.005-1.025); UMIC TRIGGER UACC YES
[2024-12-31 13:57] LABS: Alanine Aminotransferase 25 U/L (0-31); Albumin Level 4.0 g/dL (3.5-5.0); Alkaline Phosphatase 79 U/L (39-117); Anion Gap 10 (12-20); Aspartate Amino Transferase 43 U/L (5-31); Blood Urea Nitrogen 15 mg/dL (9-16); Calcium 9.0 mg/dL (8.4-10.2); Carbon Dioxide 19 mmol/L (22-29); Chloride 113 mmol/L (96-108); Estimated Glomerular Filt Rate > 60; Iron 84 mcg/dL (30-160); Percent Iron Saturation 35 % (15-50); Potassium 3.9 mmol/L (3.3-5.1); Sodium 138 mmol/L (135-145); Total Iron Binding Capacity 243 mcg/dL (228-428); Total Protein 6.8 g/dL (6.5-8.0); Unsaturated Iron Binding 159 ug/dL
[2024-12-31 14:01] LABS: Ferritin 111 ng/mL (10-250)
[2024-12-31 14:23] LABS: Folate 14.7 ng/mL (> or = 4.0); Vitamin B12 559 pg/mL (200-900)
[2024-12-31 14:37] LABS: Free T4 (Free Thyroxine) 0.86 ng/dL (0.71-1.85)
[2025-01-04 16:02] LABS: Vitamin D 25-OH, D2 <4 ng/mL; Vitamin D 25-OH, D3 60 ng/mL; Vitamin D 25-OH, Total 60 ng/mL (30-100)
[2025-01-06 08:39] LABS: NTXCreaRU 28 mg/dL (20-275)
== END 2024-12-31 09:58 | disposition home or self-care (01) ==
LOC: HO.HMGCLDS 09:57
PROVIDERS: Internal Medicine Endocrinology, Diabetes & Metabolism; PCP Nurse Practitioner Family; Referring Provider Nurse Practitioner Family; Visit Provider Nurse Practitioner Family
DX: M81.0 Age-related osteoporosis without current pathological fracture (principal); R20.0 Anesthesia of skin; R20.2 Paresthesia of skin; E03.9 Hypothyroidism, unspecified; E53.8 Deficiency of other specified B group vitamins; E55.9 Vitamin D deficiency, unspecified; E63.9 Nutritional deficiency, unspecified; D64.9 Anemia, unspecified; Z91.81 History of falling
CPT/HCPCS: 36415; 80053; 81001; 82306; 82523; 82607; 82728; 82746; 83090; 83540; 83921; 84425; 84439; 84443; 85025; 85652; 86140

== ENCOUNTER → 2025-01-12 11:07 | Outpatient (REF) | payer OTHER, SELFPAY ==
--- OUTSIDE RECORDS SUMMARY | 2024-11-25 07:50 | XMS_ITS ---
Author Organization [facility] Address [address] [place] [address] Care Team Providers Care House Servant Name Role Phone MANDO TAMAYO Primary Care Provider Philippe Tsai Jr REASON FOR VISIT screening Encounters Encounter Location Date Provider Diagnosis [facility] Outpatient [address] [place] [id number] 11/25/2024 Philippe Price Jr Colon cancer screening [...] * SWATHI BANDAOB: [birth year] (70 yo F)Acc No.[id number]:11/25/2024 COLON WITH MAC Patient: Allison NOWAK DWAIN Provider: Allison Price MD :1955 A ge:69 Y S ex:Female Date:11/25/2024 Address:[address] [place], [place] [address] Pcp:MANDO TAMAYO Subjective: * Chief Complaints: * [...] 11/25/2024 Generated for Elisa barbosa/Silas/Matiitting on: 0 01/12/2025 12:05 PM EDT
--- OUTSIDE RECORDS SUMMARY | 2025-01-08 11:30 | XMS_ITS ---
Author Organization [employer] Address [address] [facility] [address] [place] [address] Care Team Providers Care Ux Researcher Name Role Phone Case Duff Primary Care Provider UnavailSebastien Lewis Unavailable [phone] Falguni Madsen Unavailable [phone] REASON FOR VISIT pt called and she is still in [place] Medications Medication SIG (Take, Route, Frequency, Duration) [...] Active Encounters Encounter Location Date Provider Diagnosis [address] [address] 01/08/2025 Falguni Madsen Plan Of Treatment Next Appt Details Provider Name:Falguni moody, 01/16/2025 11:30:00 AM, [address] [place] [address], [phone], Progress Notes * Sarahy NEVES MDOB:[birth year] (70 yo F)Acc No.[id number]:01/08/2025 Progress Note Patient: Sarahy RICHARDS Provider: Connie Madsen, RN, PROMOTIONS INTERN-C, RECRUITING CONSULTANT :1955 A ge:70 Y S ex:Female Date:01/08/2025 Address:[address] [place] [address] [id number] Pcp:Case Duff Subjective: * Chief Complaints: * 1 . pt called and she is still in [place]. 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 Patient has been out of facility for several years and has been referred back to LAUNCHMAN for specialized management of FND. Patient does [...] Electronic signature of MITCH Schmitt CNP on 01/12/2025 at 12:05 PM EDT Sign off status: Pending * Provider: Connie Madsen RN, ELENA MEYER Date: 01/08/2025 Generated for Printing/Faxing/eTransmitting on: 01/12/2025 12:05 PM EDT
--- NOTE | 2025-01-12 11:10 | HM_ITS ---
Cardiac event monitor Indication: Syncope Technique: Patient was hooked up to cardiac event monitor from 01/12/2025 to 02/11/2025 for total period of 30 days. Total wear time was 30 days. Findings: Baseline was normal sinus rhythm with average heart rate of 73 beats per minute. Lowest heart rate was 50 beats per minute sinus bradycardia and a maximum heart rate of 120 beats per minute sinus tachycardia. There were no significant pauses or av conduction abnormalities noted. There were no sustained arrhythmias noted. There were frequent mostly isolated PVCs noted with total burden of 1.72%. There was 112 beat run of wide complex tachycardia at about 150 beats per minute which could represent SVT with aberrancy, less likely nonsustained ventricular tachycardia although this can not be ruled out. Patient triggered 73 strips with 51 times reporting symptoms of either skipped heartbeats or racing heartbeats or dizziness or lightheadedness and other times no symptoms reported. All of these correlated with isolated PVCs. Conclusion: 1. Baseline was normal sinus rhythm without pauses 2. Frequent isolated PVCs noted 3. One hundred twelve beat run of nonsustained wide complex rhythm which represents SVT with aberrancy most likely 4. Patient marked the event 73 times correlating with isolated PVCs with various symptoms reported MTDD
--- OUTSIDE RECORDS SUMMARY | 2025-01-12 12:06 | XMS_ITS | Clinical Summary ---
Author Organization [facility] ity Address [address] [place] [address] Care Team Providers Care Lawyer Criminal Name Role Phone Unavailable Primary Care Provider [...]
--- OUTSIDE RECORDS SUMMARY | 2025-01-12 12:06 | XMS_ITS | Clinical Summary ---
Author Organization [facility] Address [address] [place] [address] Phone Care Team Providers Care Agency Appointments Supervisor Name Role Phone Case Duff GRANITE BLOCK PAVER Primary Care Provider + Allergies Active Allergy [...] file Insurance MEDICARE [facility]AC[facility] [place] [id number] MEDICARE PART A & B [facility] MEDICARE REPLACEMENT MEDICARE PART A & B [facility] MEDICARE REPLACEMENT MEDICARE PART A & B Member Subscriber Plan / Payer (Ef fective 2019-Present) Name:Sarahy Neves Member ID:[id number] Relation to Subscriber:Self Name:Sarahy Neves Subscriber ID:[id number] Payer ID:[id number] Group ID:Not on file Type:Medicare Address: [employer] [address] MEDICARE REPLACEMENT [place] [id number] MEDICARE PART A & B Member Subscriber Plan / Payer (Ef fective 2019-Present) Name:Sarahy Neves Member ID:[id number] Relation to Subscriber:Self Name:Sarahy Neves Subscriber ID:[id number] Payer ID:[id number] Group ID:Not on file Type:Medicare Address: [employer] [address] [place] [address] [place] [address] MEDICARE REPLACEMENT MEDICARE PART A & B MEDICARE REPLACEMENT [place] [id number] MEDICARE PART A & B MEDICARE REPLACEMENT MEDICARE PART A & B [facility] S[facility] MEDICARE REPLACEMENT [place] [address] MEDICARE PART A & B [facility] SCO MEDICARE REPLACEMENT Advance Directives For more information, please contact: [phone] (9AM - 5PM [facility], Sunday-Sunday) Documents on File Type Date Recorded Patient Winch Operator Expl anation Healthcare Proxy 02/13/2019 1:15 PM Healthcare Agents on File Name Relationship Healthcare Agent Relationship Communication Ariel Neves Brother .Primary Health Care Agent (Proxy form on file) Cierra Mojica Sister Alternate Health care Agent (Proxy form on file) Care Teams Agency Appointments Supervisor Relationship Specialty Start Date End Date Case Duff NP [address] [place] [address] [email or web address] PCP - General Family Medicine 02/07/19 Additional Source Comments The information contained in this document represents components of the legal health record. It is not the complete legal health record.[facility]
== END ==
LOC: HO.CARD 11:07
PROVIDERS: PCP Nurse Practitioner Family; Visit Provider Physician Assistant
DX: R55 Syncope and collapse (principal)
CPT/HCPCS: 93270

== ENCOUNTER → 2025-01-12 11:10 | Outpatient (BNV) | payer OTHER, SELFPAY | PROVIDERS: PCP Nurse Practitioner Family; Visit Provider Internal Medicine Cardiovascular Disease | DX: I49.3 Ventricular premature depolarization (principal); I47.10 Supraventricular tachycardia, unspecified | CPT/HCPCS: 93272 ==

== ENCOUNTER 2025-01-13 12:46 | Outpatient (AMB) | payer OTHER, SELFPAY ==
--- OUTSIDE RECORDS SUMMARY | 2024-11-25 07:50 | XMS_ITS ---
Author Organization [facility] Address [address] [place] [address] Care Team Providers Care Supervisor Unloading Name Role Phone MANDO TAMAYO Primary Care Provider Philippe Tsai Jr REASON FOR VISIT screening Encounters Encounter Location Date Provider Diagnosis [facility] [place] [address] [place] [id number] 11/25/2024 Philippe Price Jr Colon cancer screening [...] * SWATHI BANDAOB: [birth year] (70 yo F)Acc No.[id number]:11/25/2024 COLON WITH MAC Patient: Allison NOWAK DWAIN Provider: Allison Price MD :1955 A ge:69 Y S ex:Female Date:11/25/2024 Address:[address] [place], [place] [address] Pcp:MANDO TAMAYO Subjective: * Chief Complaints: * [...] 11/25/2024 Generated for Elisa barbosa/Silas/Matiitting on: 0 01/13/2025 01:18 PM EDT
--- OUTSIDE RECORDS SUMMARY | 2025-01-08 11:30 | XMS_ITS ---
Author Organization [employer] Address [address] [facility] [address] [place] [address] Care Team Providers Care Equipment Processor Name Role Phone Case Duff Primary Care Provider UnavailSebastien Lewis Unavailable [phone] Falguni Madsen Unavailable [phone] REASON FOR VISIT pt called and she is still in [place] Medications Medication SIG (Take, Route, Frequency, Duration) [...] Active Encounters Encounter Location Date Provider Diagnosis [address] [address] 01/08/2025 Falguni Madsen Plan Of Treatment Next Appt Details Provider Name:Falguni moody, 01/16/2025 11:30:00 AM, [address] [place] [address], [phone], Progress Notes * Sarahy NEVES MDOB:[birth year] (70 yo F)Acc No.[id number]:01/08/2025 Progress Note Patient: Sarahy RICHARDS Provider: Connie Madsen, RN, CHILD CARE-C, PLUMBING AND HEATING CONTRACTOR :1955 A ge:70 Y S ex:Female Date:01/08/2025 Address:[address] [place] [address] [id number] Pcp:Case Duff Subjective: * Chief Complaints: * 1 . pt called and she is still in [place]. 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 Patient has been out of facility for several years and has been referred back to TECHNICAL TRANSLATOR for specialized management of FND. Patient does [...] Electronic signature of MITCH Schmitt CNP on 01/13/2025 at 01:18 PM EDT Sign off status: Pending * Provider: Connie Madsen RN, ELENA MEYER Date: 01/08/2025 Generated for Printing/Faxing/eTransmitting on: 01/13/2025 01:18 PM EDT
[2025-01-13 12:53] VITALS: BP 122/68; PULSE 71; RESP 18; O2SAT 99; BMI 21.6
--- NOTE | 2025-01-13 12:53 | MHC.PC.OV ---
Vital Signs 01/13/25 12:53 Height 5 ft 2 in Weight 118 lb BMI 21.6 BP 122/68 Blood Pressure Location Lt brachial Position Sitting Respiration 18 Pulse 71 Pulse Source Pulse Oximeter Pulse Oximetry (%) 99 Oxygen Delivery Method Room Air Intake Visit Reasons: PE Intake Note: Pt is here today for PE. Pt states that she has pain in her rib area. Allergies Penicillins (PENICILLINS) Allergy (Intermediate, Verified 01/13/25 12:57) HIVES carbamazepine (From Tegretol) Allergy (Mild, Verified 01/13/25 12:57) HIVES diflunisal (From Dolobid) Allergy (Mild, Verified 01/13/25 12:57) HIVES erythromycin base (From Edwin-Tab) Allergy (Mild, Verified 01/13/25 12:57) HIVES phenytoin (From Dilantin) Allergy (Mild, Verified 01/13/25 12:57) RASH,HIVES piroxicam (From Feldene) Allergy (Mild, Verified 01/13/25 12:57) HIVES sulfamethoxazole (From Bactrim) Allergy (Mild, Verified 01/13/25 12:57) HIVES trimethoprim (From Bactrim) Allergy (Mild, Verified 01/13/25 12:57) HIVES valproic acid (From Depakene) Allergy (Mild, Verified 01/13/25 12:57) HIVES Depakene Allergy (Unknown, Verified 01/13/25 12:57) Rash hydrochlorothiazide (HYDROCHLOROTHIAZIDE) Allergy (Unknown, Verified 01/13/25 12:57) rash lisinopril (LISINOPRIL) Allergy (Unknown, Verified 01/13/25 12:57) rash galcanezumab-gnlm (From Emgality Pen) Allergy (Verified 01/13/25 13:06) headaches codeine (Codeine) Adverse Reaction (Intermediate, Verified 01/13/25 12:57) NAUSEA & VOMITING rash doxycycline Adverse Reaction (Verified 01/13/25 12:57) Stomach Upset ENVIRONMENTAL Allergy (Intermediate, Uncoded 01/13/25 12:57) ASTHMA,LOSES VOICE TAPE,PLASTIC Allergy (Intermediate, Uncoded 01/13/25 12:57) RASH surgical tape Allergy (Unknown, Uncoded 01/13/25 12:57) unknown Medication List - Last Reconciled 01/13/25 by Case Duff, [facility] albuterol sulfate 2.5 mg (3 mL) inhalation QID PRN 90 days albuterol sulfate 90 mcg/actuation 2 puffs PO Q6H PRN aspirin (Adult Low Dose Aspirin) 81 mg PO DAILY atorvastatin 80 mg PO BEDTIME cetirizine (All Day Allergy (cetirizine)) 10 mg PO DAILY PRN 30 days cholecalciferol (vitamin D3) 50 mcg PO DAILY 90 days clonazepam 0.5 mg PO BID docusate sodium 100 mg PO BEDTIME ezetimibe 10 mg PO DAILY fludrocortisone 0.1 mg PO DAILY 90 days fluticasone propion-salmeterol 250-50 mcg/dose (Wixela Inhub) 1 ea inhalation BID 90 days fluticasone propionate 50 mcg/actuation 1 spray intranasal DAILY 90 days folic acid 0.8 mg PO DAILY levothyroxine 25 mcg PO DAILY@0630 [[employer]-Mobile unit As directed] magnesium oxide 400 mg PO BEDTIME 90 days meclizine 25 mg PO DAILY PRN melatonin 10 mg PO BEDTIME memantine (Namenda XR) 7 mg PO DAILY 30 days montelukast 10 mg PO BEDTIME oxymetazoline 0.05% (Afrin (oxymetazoline)) 2 sprays intranasal Q12H PRN 3 days riboflavin (vitamin B2) 400 mg PO DAILY 90 days risedronate 35 mg PO MCKEE@0900 sertraline 50 mg PO DAILY sumatriptan succinate 100 mg PO DAILY PRN topiramate 100 mg PO BID 90 days Tobacco use date assessed: 01/13/25 Fall risk assessment: 2 + Falls in past year Last assessed Fall Risk: 01/13/25 Dental Screening Dental Screen Date: 01/13/25 Did you have a dental visit in the last 12 months?: No Did you have a dental problem in the last 6 months where you did not have access to dental care?: No Was dental information given to patient?: Patient declined HPI PE HPI Details History of Present Illness The patient is a 70-year-old female presenting with management of osteoporosis and evaluation of neurological symptoms potentially related to a suspected cerebrovascular accident. She is under the care of an peoplesoft administrator for osteoporosis and has a history of conversion disorder, with plans to see a specialist in [place]. A recent suspected cerebrovascular accident has been questioned, but she appears to have returned to her baseline, although she experiences delays in thought processing and communication. The patient denies chest pain, dyspnea, abdominal pain, hematochezia, constipation, diarrhea, and any suicidal or homicidal ideation. She uses a rolling walker due to an abnormal gait, possibly related to conversion disorder. Neurological examination showed hyperreflexia, tremor, and spontaneous jerking during rhomberg, while cardiovascular examination noted a faint systolic murmur, and she is wearing a Holter monitor. She reports a recent colonoscopy and is due for a mammogram this month. sees neurology Health Maintenance - Colonoscopy: Recently completed - Mammogram: Due this month Social History Review of Systems - Cardiovascular: Denies chest pain - Respiratory: Denies dyspnea - Gastrointestinal: Denies abdominal pain, hematochezia, constipation, diarrhea - Neurological: Reports delays in thought processing and communication - Psychiatric: Denies suicidal ideation, denies homicidal ideation Physical Exam General: Cooperative, healthy appearing, comfortable, no acute distress and well developed, rolling walker Orientation: Patient oriented x3, though taking quite some time to finish her thought process and communicate certain ideas and names Limitations: Uses a rolling walker due to somewhat abnormal gait Head: Normal to inspection Ears: Hearing grossly normal bilaterally Nose: Normal external nose present Face and sinus: Normal facial exam Eyes: Appearance normal, both eyes and all related structures Neck: Normal visual inspection and Yes full ROM, no carotid bruits noted Respiratory: Normal respiratory effort and able to speak in complete sentences. Clear to auscultation bilaterally Cardiovascular: Regular rate and rhythm. Normal S1 and S2, very faint systolic murmur GI: Normal to inspection. Soft to palpation and nontender Skin: No rashes or lesions noted Neuro: Hyperreflexive reflexes, tremor and spontaneously jerking/swaying during the rhomberg Extremities: Normal to inspection, no edema Results - Cardiovascular: Holter monitor in use - Gastrointestinal: Recent colonoscopy Plan The patient will maintain her osteoporosis management with her peoplesoft administrator and is advised to consult with a specialist in [place] for her conversion disorder. Monitoring for any new or worsening symptoms related to the suspected cerebrovascular accident is recommended, and she should continue using a rolling walker for her gait issues. She is reminded to complete her mammogram this month as part of her preventative care regimen. [facility] Medical History (Updated 01/13/25 @ 13:11 by [facility] Osteopenia Conversion disorder with attacks or seizures, acute episode, with psychological stressor Falls Anesthesia complication Liver lesion Ingrown toenail Elevated liver enzymes Concussion with loss of consciousness SOB (shortness of breath) Pain of both earlobes Dizziness New onset headache Otitis externa of both ears Acute effusion of right ear Dermatitis Myalgia Headache REM sleep behavior disorder Convulsion disorder COVID-19 Pre-syncope Dyspnea Chest pain Pneumonia Osteoporosis Screening for osteoporosis CKD (chronic kidney disease) Dyslipidemia Hypothyroid Hyperlipemia Ataxic gait Seizures Asthma Depression Conversion disorder HTN (hypertension) Muscle weakness Hypothyroid Surgical History H/O colonoscopy History of right knee surgery History of lobectomy of thyroid History of arthroscopy of right knee History of ankle surgery History of arthroscopy of left knee History of hysterectomy Family History Father CVD (cardiovascular disease) Stomach ulcer Cardiac arrest H/O heart bypass surgery Mother History of heart attack CHF (congestive heart failure) Lung cancer Diabetes mellitus High cholesterol HTN (hypertension) Hypothyroidism Sister Lung cancer Substance use disorder Brother Colitis Sister No problems noted. Sister Obstetric pulmonary blood clot embolism, antepartum Paternal Aunt Mental health disorder Substance use disorder Maternal Grandmother Mental health disorder Family/Other Substance use disorder Social History Household Members: Family Household Members Other:: brother, 2 cats Housing: House Are you a primary healthcare administration internship to a significant other at home: No Do you presently have visiting nurse or other home services: No Alcohol intake: never Patient Tobacco Use Status: Never used Tobacco e-Cigarette/Vaping Use: Never Used Second Hand Smoke Exposure: No service: No Current occupational status: disabled Cognitive needs: No Hearing needs: No Vision needs: No Questionnaire PHQ-9 Over the last 2 weeks, how often have you been bothered by any of the following problems? 82397 - PHQ-9 Billing: Patient declined-do not bill Source: Developed by Drs. Mirza Corona, Jelena Walton, Arnoldo Gonzalez and colleagues, with an educational liu from [employer]. Thrive Questionnaire Date Thrive assessed: 12/18/24 I am a: Patient What is your living situation today?: I choose not to answer this question Within the past 12 months, did the food you bought not last and you didn't have the money to get more?: I choose not to answer this question Within the past 12 months, did you worry whether your food would run out before you got money to buy more?: I choose not to answer this question Do you have trouble paying for medicines?: I choose not to answer this question Do you have trouble getting transportation to medical appointments?: I choose not to answer this question Do you have trouble paying your heating and electricity bill?: I choose not to answer this question Do you have trouble taking care of your child, family member or friend?: I choose not to answer this question Do you have trouble with day-to-day activities such as bathing, preparing meals, shopping, managing finances, etc.?: I choose not to answer this question Are you currently unemployed and looking for a job?: I choose not to answer this question Are you interested in more education?: I choose not to answer this question Please select the resources that you would like help with: None Currently or been in a relationship where the following occur: I choose not to answer THRIVE Score: 0 AUDIT C Alcohol Use Questionnaire (AUDIT-C) 1. How often do you have a drink containing alcohol?: Never 3. How often do you have six or more drinks on one occasion?: Never Total Score: 0 KATHRINE-7 AMB Questionnaire KATHRINE-7 Date KATHRINE - 7 assessed: 12/18/24 Source: Developed by Drs. Mirza Corona, Jelena Walton, Arnoldo Gonzalez and colleagues, with an educational liu from [employer]. Physical exam (Primary Care) Vital Signs: Last Vital Signs Pulse 71 01/13/25 12:53 Resp 18 01/13/25 12:53 BP 122/68 01/13/25 12:53 Pulse Ox 99 01/13/25 12:53 Oxygen Delivery Method Room Air 01/13/25 12:53 BMI result Body Mass Index 21.6 Tobacco/Smoking Status: Tobacco use Status Tobacco use date assessed 01/13/25 01/13/25 13:10 Patient Tobacco Use Status Never used Tobacco 01/13/25 13:10 e-Cigarette/Vaping Use Never Used 01/13/25 13:10 Thrive Assessment: Date of Thrive Assessment Date Thrive assessed 12/18/24 01/13/25 13:10 Currently or been in a relationship where the following occur: I choose not to answer Immunizations pneumoc 20-sukhdev conj-dip cr(PF) 0.5 mL IM syringe Performing Provider: DANIELLA Muñoz [place]forming [place] [facility] [place] [facility] Administered by: Joseph Vasquez CMA on 01/13/25 14:02 Dose Route Admin Location Dispensed Lot Number Expiration Date NDC Fans Clerk 0.5 mL IM Left Deltoid 0.5 mL [id number] 12/28/25 4256-5695-63 Ecelles CarsonETH/PFIZER Total Dispensed Waste 0.5 mL 0 % VIS Given Date VIS Provided VIS Publication Date 01/13/25 Single Vaccine 24 Eligibility Eligibility Date Funding Source Not [facility] Eligible 01/13/25 Private Coding Level of Care Code Est Pt Prev Care >65y(05572) Diagnoses Vitamin D deficiency E55.9 Conversion disorder F44.9 B12 deficiency E53.8 Assessment & Plan Assessment & Plan (1) Vitamin D deficiency: Code(s): E55.9 - Vitamin D deficiency, unspecified Category: Medical (2) Conversion disorder: Code(s): F44.9 - Dissociative and conversion disorder, unspecified Category: Medical (3) B12 deficiency: Code(s): E53.8 - Deficiency of other specified B group vitamins Category: Medical Plan . Orders: Orders MM screening mammo BI Today Z12.31 - Encounter for screening mammogram for malignant neoplasm of breast Complete Blood Count Auto Diff Today Z00.01 - Encounter for general adult medical examination with abnormal findings Comprehensive [place]. Panel Fast Today Z00.01 - Encounter for general adult medical examination with abnormal findings TSH reflex Free T4 Today Z00.01 - Encounter for general adult medical examination with abnormal findings UA CC w/rflx Micro + Cult Today Z00.01 - Encounter for general adult medical examination with abnormal findings Lipid Panel Today Z00.01 - Encounter for general adult medical examination with abnormal findings Vitamin D 25-OH Total Today E55.9 - Vitamin D deficiency, unspecified, Z00.01 - Encounter for general adult medical examination with abnormal findings Pneumococcal 20 Immunization Today Z23 - Encounter for immunization Vitamin B12 and Folate Today E53.8 - Deficiency of other specified B group vitamins
--- OUTSIDE RECORDS SUMMARY | 2025-01-13 13:18 | XMS_ITS | Clinical Summary ---
Author Organization [facility] Address [address] [place] [address] Phone Care Team Providers Care Shirt Presser Name Role Phone Case Duff TOOL TENDER Primary Care Provider + Allergies Active Allergy [...] file Insurance MEDICARE PART A & B [facility] MEDICARE REPLACEMENT [place] [id number] MEDICARE PART A & B [facility] MEDICARE REPLACEMENT MEDICARE PART A & B [facility] MEDICARE REPLACEMENT MEDICARE PART A & B Member Subscriber Plan / Payer (Ef fective 2019-Present) Name:Sarahy Neves Member ID:[id number] Relation to Subscriber:Self Name:Sarahy Neves Subscriber ID:[id number] Payer ID:[id number] Group ID:Not on file Type:Medicare Address: [employer] [address] MEDICARE REPLACEMENT [place] [id number] MEDICARE PART A & B Member Subscriber Plan / Payer (Ef fective 2019-Present) Name:Sarahy Neves Member ID:[id number] Relation to Subscriber:Self Name:Sarahy Neves Subscriber ID:[id number] Payer ID:[id number] Group ID:Not on file Type:Medicare Address: [employer] [address] [place] [address] [place] [address] MEDICARE REPLACEMENT MEDICARE PART A & B MEDICARE REPLACEMENT [place] [id number] MEDICARE PART A & B MEDICARE REPLACEMENT MEDICARE PART A & B [facility] MEDICARE REPLACEMENT [place] [id number] MEDICARE PART A & B [facility] SCO MEDICARE REPLACEMENT Advance Directives For more information, please contact: [phone] (9AM - 5PM [facility], Sunday-Sunday) Documents on File Type Date Recorded Patient System Support Specialist Expl anation Healthcare Proxy 02/13/2019 1:15 PM Healthcare Agents on File Name Relationship Healthcare Agent Relationship Communication Ariel Neves Brother .Primary Health Care Agent (Proxy form on file) Cierra Mojica Sister Alternate Health care Agent (Proxy form on file) Care Teams Shirt Presser Relationship Specialty Start Date End Date Case Duff NP [address] [place] [address] [email or web address] PCP - General Family Medicine 02/07/19 Additional Source Comments The information contained in this document represents components of the legal health record. It is not the complete legal health record.[facility]
--- OUTSIDE RECORDS SUMMARY | 2025-01-13 13:18 | XMS_ITS | Clinical Summary ---
Author Organization [facility] ity Address [address] [place] [address] Care Team Providers Care Refinery Operator Light Ends Recovery Name Role Phone Unavailable Primary Care Provider [...]
--- OUTSIDE RECORDS SUMMARY | 2025-02-10 20:00 | XMS_ITS | Clinical Summary ---
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 12-09 00:00: 00 DEPRESSION, UNSPECIFIED Active 12-08 00:00: 00 Allergies, Adverse Reactions, Alerts Allergy Name Allergy Type Status Severity Reaction(s) Onset Date Inactive Date Treating Clinician Comments PENICILLIN Propensity to adverse reactions Active 12-15 19:31: 09 CARBAMAZEPIN E Propensity to adverse reactions Active 12-15 19:31: 19 DIFLUNISAL Propensity to adverse reactions Active 12-15 19:31: 30 ERYTHROMYCIN BACTRIM Propensity to adverse reactions Active 12-15 19:31: 45 PHENYTOIN Propensity to adverse reactions Active 12-15 19:31: 56 PIROXICAM Propensity to adverse reactions Active 12-15 19:32: 16 SULFAMETHOXA ZOLE Propensity to adverse reactions Active 12-15 19:32: 30 TRIMETHOPRIM Propensity to adverse reactions Active 12-15 19:32: 44 VALPROIC ACID Propensity to adverse reactions Active 12-15 19:32: 54 DEPAKENE Propensity to adverse reactions Active 12-15 19:33: 03 HYDROCHLOROT HIAZIDE Propensity to adverse reactions Active 12-15 19:33: 16 LISINOPRIL Propensity to adverse reactions Active 12-15 19:33: 25 CODEINE Propensity to adverse reactions Active 12-15 19:33: 31 DOXYCYCLINE Propensity to adverse reactions Active 12-15 19:33: 41 ADHERENT TAPE Propensity to adverse reactions Active 12-16 07:27: 44 Medications Ordered Medication Name Filled Medication Name Start Date Stop Date Current Medication? Ordering Clinician Indication Dosage Frequency Signature (SIG) Comments Components Aspirin Childrens 81 mg chewable tablet 12-14 00:00: 00 Yes [id number] 1 tablet DAILY 1 tablet DAILY (route: oral) Med Classific ation: Hematolog ical Agents atorvastati n 80 mg tablet 12-14 00:00: 00 Yes [id number] 1 tablet BEDTIME 1 tablet BEDTIME (route: oral) Med Classific ation: Cardiovas cular Therapy Agents cetirizine 10 mg tablet 12-14 00:00: 00 Yes [id number] 1 tablet DAILY 1 tablet DAILY (route: oral) Med Classific ation: Respirato ry Therapy Agents clonazepam 0.5 mg tablet 12-14 00:00: 00 Yes [id number] PRN FOR ANXIETY/MINH TATiON 1 tablet 2 TIMES DAILY 1 tablet 2 TIMES DAILY (route: oral) Med Classific ation: Central Nervous System Agents docusate sodium 100 mg capsule 12-14 00:00: 00 Yes [id number] 1 capsule BEDTIME 1 capsule BEDTIME (route: oral) Med Classific ation: Gastroint estinal Therapy Agents ezetimibe 10 mg tablet 12-14 00:00: 00 Yes [id number] 1 tablet DAILY 1 tablet DAILY (route: oral) Med Classific ation: Cardiovas cular Therapy Agents fludrocorti sone 0.1 mg tablet 12-14 00:00: 00 Yes [id number] 1 tablet DAILY 1 tablet DAILY (route: oral) Med Classific ation: Endocrine folic acid 800 mcg tablet 12-14 00:00: 00 Yes [id number] 1 tablet DAILY 1 tablet DAILY (route: oral) Med Classific ation: Electroly te Balance-N utritiona l Products levothyroxi ne 25 mcg tablet 12-14 00:00: 00 Yes [id number] 1 tablet DAILY 1 tablet DAILY (route: oral) Med Classific ation: Endocrine magnesium 400 mg (as magnesium oxide) tablet 12-14 00:00: 00 Yes [id number] 1 tablet BEDTIME 1 tablet BEDTIME (route: oral) Med Classific ation: Electroly te Balance-N utritiona l Products melatonin 10 mg tablet 12-14 00:00: 00 Yes [id number] 1 tablet BEDTIME 1 tablet BEDTIME (route: oral) Med Classific ation: Central Nervous System Agents montelukast 10 mg tablet 12-14 00:00: 00 Yes [id number] 1 tablet BEDTIME 1 tablet BEDTIME (route: oral) Med Classific ation: Respirato ry Therapy Agents sertraline 25 mg tablet 12-14 00:00: 00 Yes [id number] 2 tablet DAILY 2 tablet DAILY (route: oral) Med Classific ation: Central Nervous System Agents sumatriptan 100 mg tablet 12-14 00:00: 00 Yes [id number] 1 tablet DAILY 1 tablet DAILY (route: oral) Med Classific ation: Central Nervous System Agents topiramate 100 mg tablet 12-14 00:00: 00 Yes [id number] 1 tablet 2 TIMES DAILY 1 tablet 2 TIMES DAILY (route: oral) Med Classific ation: Central Nervous System Agents Vital Signs Vital Name Observation Time Observation Value Commen ts Temperature 2025-01-10 12:29:00.000 97.4 [degF] Temperature 2025-01-01 16:32:00.000 97.4 [degF] Temperature 2024-12-22 14:17:00.000 97.2 [degF] Temperature 2024-12-22 08:54:00.000 97.9 [degF] Temperature 2024-12-14 11:54:00.000 96.3 [degF] BMI (%) 2024-12-14 11:54:00.000 22 kg/m2 Height 2024-12-14 11:54:00.000 60 [in_us] Pulse 2025-01-12 09:54:00.000 69 /min Pulse 2025-01-10 12:29:00.000 72 /min Pulse 2025-01-09 12:22:00.000 71 /min Pulse 2025-01-07 09:37:00.000 70 /min Pulse 2025-01-05 13:00:00.000 73 /min Pulse 2025-01-01 16:32:00.000 74 /min Pulse 2024-12-24 12:40:00.000 78 /min Pulse 2024-12-22 14:17:00.000 71 /min Pulse 2024-12-22 08:54:00.000 80 /min Pulse 2024-12-17 13:54:00.000 69 /min Pulse 2024-12-14 11:54:00.000 74 /min O2 Saturation (%) 2025-01-12 09:54:00.000 99 % O2 Saturation (%) 2025-01-09 12:22:00.000 99 % O2 Saturation (%) 2025-01-07 09:37:00.000 99 % O2 Saturation (%) 2025-01-05 13:00:00.000 99 % O2 Saturation (%) 2024-12-22 08:54:00.000 98 % O2 Saturation (%) 2024-12-17 13:54:00.000 99 % Respirations 2025-01-12 09:54:00.000 20 /min Respirations 2025-01-10 12:29:00.000 18 /min Respirations 2025-01-09 12:22:00.000 20 /min Respirations 2025-01-07 09:37:00.000 20 /min Respirations 2025-01-05 13:00:00.000 20 /min Respirations 2025-01-01 16:32:00.000 18 /min Respirations 2024-12-24 12:40:00.000 20 /min Respirations 2024-12-22 14:17:00.000 17 /min Respirations 2024-12-22 08:54:00.000 16 /min Respirations 2024-12-17 13:54:00.000 20 /min Respirations 2024-12-14 11:54:00.000 16 /min Weight (lbs) 2024-12-14 11:54:00.000 116 [lb_av] Systolic Blood Pressure 2025-01-12 09:54:00.000 126 mm [Hg] Systolic Blood Pressure 2025-01-10 12:29:00.000 122 mm [Hg] Systolic Blood Pressure 2025-01-07 09:37:00.000 118 mm [Hg] Systolic Blood Pressure 2025-01-05 13:00:00.000 124 mm [Hg] Systolic Blood Pressure 2025-01-01 16:32:00.000 114 mm [Hg] Systolic Blood Pressure 2024-12-24 12:40:00.000 120 mm [Hg] Systolic Blood Pressure 2024-12-22 14:17:00.000 119 mm [Hg] Systolic Blood Pressure 2024-12-22 08:54:00.000 111 mm [Hg] Systolic Blood Pressure 2024-12-17 13:54:00.000 122 mm [Hg] Systolic Blood Pressure 2024-12-14 11:54:00.000 103 mm [Hg] Diastolic Blood Pressure 2025-01-12 09:54:00.000 81 mm [Hg] Diastolic Blood Pressure 2025-01-10 12:29:00.000 72 mm [Hg] Diastolic Blood Pressure 2025-01-07 09:37:00.000 77 mm [Hg] Diastolic Blood Pressure 2025-01-05 13:00:00.000 79 mm [Hg] Diastolic Blood Pressure 2025-01-01 16:32:00.000 68 mm [Hg] Diastolic Blood Pressure 2024-12-24 12:40:00.000 74 mm [Hg] Diastolic Blood Pressure 2024-12-22 14:17:00.000 66 mm [Hg] Diastolic Blood Pressure 2024-12-22 08:54:00.000 60 mm [Hg] Diastolic Blood Pressure 2024-12-17 13:54:00.000 74 mm [Hg] Diastolic Blood Pressure 2024-12-14 11:54:00.000 58 mm [Hg] Plan of Treatment Planned Activity Planned Date Details Comments Future Scheduled Test SKILLED NU RSE TO EVALUATE PATIENT, IDENTIFY PRIMARY AND CO-MORBID CONDITIONS CODED PER CODING GUIDELINES, AND DEVELOP PATIENT SPECIFIC PLAN OF CARE THAT INCLUDES PATIENT GOAL FOR HOME HEALTH. [code = SKILLED NURSE TO EVALUATE PATIENT, IDENTIFY PRIMARY AND CO-MORBID CONDITIONS CODED PER CODING GUIDELINES, AND DEVELOP PATIENT SPECIFIC PLAN OF CARE THAT INCLUDES PATIENT GOAL FOR HOME HEALTH.] Future Scheduled Test SKILLED NU RSE WILL MAINTAIN SITUATIONAL AWARENESS FOR SAFETY AND WILL NOTIFY CLINICAL BACK TACKER AND PHYSICIAN/PROVIDER WITH ANY CHANGE IN CONDITION. [code = SKILLED NURSE WILL MAINTAIN SITUATIONAL AWARENESS FOR SAFETY AND WILL NOTIFY CLINICAL BACK TACKER AND PHYSICIAN/PROVIDER WITH ANY CHANGE IN CONDITION.] Future Scheduled Test SKILLED NU RSE FOR OBSERVATION AND ASSESSMENT OF PATIENTS PAIN LEVEL AND EFFECTIVENESS OF PAIN MANAGEMENT REGIMEN. SKILLED NURSE TO INSTRUCT PATIENT/CAREGIVER REGARDING PHARMACOLOGIC AND NON-PHARMACOLOGIC PAIN CONTROL MEASURES. SKILLED NURSE TO REPORT TO PHYSICIAN IF PAIN IS UNCONTROLLED WITH CURRENT PAIN MANAGEMENT REGIMEN. [code = SKILLED NURSE FOR OBSERVATION AND ASSESSMENT OF PATIENTS PAIN LEVEL AND EFFECTIVENESS OF PAIN MANAGEMENT REGIMEN. SKILLED NURSE TO INSTRUCT PATIENT/CAREGIVER REGARDING PHARMACOLOGIC AND NON-PHARMACOLOGIC PAIN CONTROL MEASURES. SKILLED NURSE TO REPORT TO PHYSICIAN IF PAIN IS UNCONTROLLED WITH CURRENT PAIN MANAGEMENT REGIMEN.] Future Scheduled Test SKILLED NU RSE TO PERFORM HOME SAFETY AND FALL ASSESSMENT AND PROVIDE INSTRUCTION TO IMPLEMENT HOME SAFETY AND FALL PREVENTION STRATEGIES. [code = SKILLED NURSE TO PERFORM HOME SAFETY AND FALL ASSESSMENT AND PROVIDE INSTRUCTION TO IMPLEMENT HOME SAFETY AND FALL PREVENTION STRATEGIES.] Future Scheduled Test SKILLED NU RSE TO O/A OF PATIENTS MENTAL/BEHAVIORAL STATUS, ASSESS VITAL SIGNS WEEKLY, ALLOW 2 PRNS FOR MEDICATION MANAGEMENT. [code = SKILLED NURSE TO O/A OF PATIENTS MENTAL/BEHAVIORAL STATUS, ASSESS VITAL SIGNS WEEKLY, ALLOW 2 PRNS FOR MEDICATION MANAGEMENT.] Future Scheduled Test SKILLED NU RSE FOR O/A OF GENERAL HEALTH STATUS OF PAIN, CARDIAC, RESPIRATORY, GASTROINTESTINAL, GENITOURINARY, SKIN, NEUROLOGIC, ENDOCRINE SYSTEMS TO IDENTIFY CHANGES ASSOCIATED WITH EXACERBATION FOR EARLY INTERVENTION OF COMPLICATIONS 3 X WEEKLY [code = SKILLED NURSE FOR O/A OF GENERAL HEALTH STATUS OF PAIN, CARDIAC, RESPIRATORY, GASTROINTESTINAL, GENITOURINARY, SKIN, NEUROLOGIC, ENDOCRINE SYSTEMS TO IDENTIFY CHANGES ASSOCIATED WITH EXACERBATION FOR EARLY INTERVENTION OF COMPLICATIONS 3 X WEEKLY] Future Scheduled Test SKILLED NU RSE TO REVIEW PATIENT MEDICATIONS. INSTRUCT PATIENT/CAREGIVER ON MONITORING OF EFFECTIVENESS, ADVERSE DRUG REACTIONS, SIDE EFFECTS OF ALL MEDICATIONS (PRESCRIPTION/-OTC), AND HOW AND WHEN TO REPORT PROBLEMS. [code = SKILLED NURSE TO REVIEW PATIENT MEDICATIONS. INSTRUCT PATIENT/CAREGIVER ON MONITORING OF EFFECTIVENESS, ADVERSE DRUG REACTIONS, SIDE EFFECTS OF ALL MEDICATIONS (PRESCRIPTION/-OTC), AND HOW AND WHEN TO REPORT PROBLEMS.] Future Scheduled Test SKILLED NU RSE FOR O/A AND SKILLED TEACHING RELATED TO MANAGEMENT OF DEPRESSIVE SYMPTOMS AND/OR DEPRESSION. SN TO REPORT SIGNIFICANT CHANGE IN DEPRESSIVE SYMPTOMS TO CLINICAL PROVIDER FOR EARLY INTERVENTION. [code = SKILLED NURSE FOR O/A AND SKILLED TEACHING RELATED TO MANAGEMENT OF DEPRESSIVE SYMPTOMS AND/OR DEPRESSION. SN TO REPORT SIGNIFICANT CHANGE IN DEPRESSIVE SYMPTOMS TO CLINICAL PROVIDER FOR EARLY INTERVENTION.] Future Scheduled Test SKILLED NU RSE FOR O/A AND SKILLED TEACHING OF COPING SKILLS TO MANAGE ANXIETY AND MAINTAIN SAFETY. [code = SKILLED NURSE FOR O/A AND SKILLED TEACHING OF COPING SKILLS TO MANAGE ANXIETY AND MAINTAIN SAFETY.] Future Scheduled Test SKILLED NU RSE TO ASSESS PATIENTS PSYCHOSOCIAL STATUS TO IDENTIFY POTENTIAL ISSUES THAT MAY COMPLICATE THE PROVISION OF THE PLAN OF CARE INCLUDING THE PATIENTS ABILITY TO ACCESS COMMUNITY RESOURCES AND PSYCHOSOCIAL SUPPORT SERVICES. [code = SKILLED NURSE TO ASSESS PATIENTS PSYCHOSOCIAL STATUS TO IDENTIFY POTENTIAL ISSUES THAT MAY COMPLICATE THE PROVISION OF THE PLAN OF CARE INCLUDING THE PATIENTS ABILITY TO ACCESS COMMUNITY RESOURCES AND PSYCHOSOCIAL SUPPORT SERVICES.] Future Scheduled Test SKILLED NU RSE FOR O/A OF CLIENT'S SOCIAL ISOLATION AND PROVIDE ASSISTANCE TO CLIENT IN DEVELOPMENT OF PLANNED ACTIVITIES [code = SKILLED NURSE FOR O/A OF CLIENT'S SOCIAL ISOLATION AND PROVIDE ASSISTANCE TO CLIENT IN DEVELOPMENT OF PLANNED ACTIVITIES] Future Scheduled Test SKILLED NU RSE FOR O/A OF ALTERED MOOD [code = SKILLED NURSE FOR O/A OF ALTERED MOOD] Future Scheduled Test PHYSICAL T HERAPIST TO EVALUATE PATIENT FOR FALLS AND WEAKNESS LOWER EXTREMITY [code = PHYSICAL THERAPIST TO EVALUATE PATIENT FOR FALLS AND WEAKNESS LOWER EXTREMITY ] Future Scheduled Test SKILLED NU RSE TO PROVIDE TEACHING ON SIGNS AND SYMPTOMS AND MANAGEMENT OF HYPERTENSION. [code = SKILLED NURSE TO PROVIDE TEACHING ON SIGNS AND SYMPTOMS AND MANAGEMENT OF HYPERTENSION.] Goal Patient Goal - T O STAY OUT OF THE HOSPITAL. Goal Provider Goal - A PLAN OF CARE WILL BE ESTABLISHED THAT MEETS PATIENT'S [facility] NEEDS AND INCLUDES PATIENT GOAL FOR HOME HEALTH. Goal Provider Goal - PATIENT WILL REMAIN SAFE IN THE COMMUNITY AND WILL BE FREE OF DANGER TO SELF AND OTHERS THROUGHOUT THE CERTIFICATION PERIOD. Goal Provider Goal - PATIENT/CAREGIVER WILL DEMONSTRATE UNDERSTANDING OF PHARMACOLOGIC AND NONPHARMACOLOGIC PAIN CONTROL MEASURES AND PATIENT WILL HAVE IMPROVEMENT IN PAIN INTERFERING WITH ACTIVITY EVIDENCED BY PAIN AT A LEVEL THAT IS ACCEPTABLE TO THE PATIENT AND PAIN LEVEL WITHIN ESTABLISHED PARAMETERS BY END OF CERTIFICATION PERIOD. Goal Provider Goal - PATIENT/CAREGIVER WILL VERBALIZE/DEMONSTRATE EFFECTIVE HOME SAFETY AND FALL PREVENTION STRATEGIES THROUGHOUT CERTIFICATION PERIOD. Goal Provider Goal - ALTERED MENTAL/BEHAVIORAL STATUS WILL BE IDENTIFIED PROMPTLY AND INTERVENTION INITIATED QUICKLY TO MINIMIZE ASSOCIATED RISKS THROUGHOUT CERTIFICATION PERIOD. Goal Provider Goal - CHANGE IN GENERAL HEALTH STATUS WILL BE IDENTIFIED AND REPORTED TO PHYSICIAN FOR PROMPT INTERVENTION TO MINIMIZE ASSOCIATED RISKS THROUGHOUT CERTIFICATION PERIOD. Goal Provider Goal - PATIENT/CAREGIVER WILL VERBALIZE UNDERSTANDING OF EDUCATION PROVIDED ON MEDICATIONS BY THE END OF THE CERTIFICATION PERIOD. Goal Provider Goal - PATIENT WILL REMAIN SAFE WITHOUT DECOMPENSATION IN DEPRESSIVE CONDITION, WHILE MAINTAINING OPTIMAL LEVEL OF MENTAL HEALTH AND WELL BEING THROUGHOUT CERTIFICATION PERIOD. Goal Provider Goal - PATIENT WILL BE ABLE TO PERFORM DAILY FUNCTIONS AND HAVE OPTIMAL IMPROVEMENT IN LEVEL OF ANXIETY THROUGHOUT CERTIFICATION PERIOD. Goal Provider Goal - PSYCHOSOCIAL NEEDS WILL BE IDENTIFIED AND PLAN IMPLEMENTED TO MINIMIZE RISK THROUGHOUT CERTIFICATION PERIOD. Goal Provider Goal - PATIENT WILL DEMONSTRATE AN INCREASED INTEREST IN SOCIALIZATION AND ACTIVITIES BY THE END OF THE CERTIFICATION PERIOD. Goal Provider Goal - PATIENT WILL BE ABLE TO PERFORM DAILY FUNCTIONS AND HAVE OPTIMAL IMPROVEMENT IN MOOD STABILITY THROUGHOUT CERTIFICATION PERIOD. Goal Provider Goal - A PHYSICAL THERAPY EVALUATION TO BE COMPLETED WITH RECOMMENDATIONS AND/OR WRITTEN PLAN OF TREATMENT ESTABLISHED FOR PHYSICIANS SIGNATURE. Goal Provider Goal - PATIENT/CAREGIVER WILL VERBALIZE SIGNS AND SYMPTOMS OF HYPERTENSION AND WILL BE ABLE TO DEMONSTRATE ABILITY TO MANAGE EXACERBATION BY END OF THE EPISODE. Progress Notes Progress Notes <paragraph>[Visit Date: 2024 by FRED WAGONER RN]:</paragraph><paragraph>SEE BH [facility] AUTH</paragraph> <paragraph>[Visit Date: 2024 by FRED WAGONER RN]:</paragraph><paragraph>SEE CLINICAL NOTE</paragraph> <paragraph>[Visit Date: 2024 by FRED WAGONER RN]:</paragraph><paragraph>SEE CLINICAL NOTE</paragraph> Encounters Start Date/Time End Date/Time Encounter Type Admission Type Attending [facility] Care Facility Care Department Encounter ID Discharge Date Discharge Status Discharge Condition Discharge Reason Percent Goals Met 2024-12-14 00:00:00 2025-02-11 00:00:00 Outpatient NEW ADMISSION FRED WAGONER [facility] [id number] 65.91
== END 2025-01-13 14:01 | disposition home or self-care (01) ==
LOC: HO.HMCC 12:47
PROVIDERS: PCP Nurse Practitioner Family; Visit Provider Nurse Practitioner Family
DX: Z00.00 Encounter for general adult medical examination without abnormal findings (principal); E55.9 Vitamin D deficiency, unspecified; F44.9 Dissociative and conversion disorder, unspecified; E53.8 Deficiency of other specified B group vitamins; Z23 Encounter for immunization

== ENCOUNTER → 2025-01-13 12:46 | Outpatient (BNVA) | payer OTHER, SELFPAY | PROVIDERS: PCP Nurse Practitioner Family; Visit Provider Nurse Practitioner Family | DX: M81.0 Age-related osteoporosis without current pathological fracture (principal); E55.9 Vitamin D deficiency, unspecified; F44.9 Dissociative and conversion disorder, unspecified; E53.8 Deficiency of other specified B group vitamins; Z23 Encounter for immunization | CPT/HCPCS: 90471; 90677; 99397 ==

== ENCOUNTER 2025-01-15 08:29 | Outpatient (AMB) | payer OTHER, SELFPAY ==
--- OUTSIDE RECORDS SUMMARY | 2024-11-25 07:50 | XMS_ITS ---
Author Organization [facility] Address [address] [place] [address] Care Team Providers Care Laborer/Grade Check Name Role Phone MANDO TAMAYO Primary Care Provider [place] Tsai Jr [phone] REASON FOR VISIT screening Encounters Encounter Location Date Provider Diagnosis [facility] Out[place] [address] [place] [id number] 11/25/2024 Philippe Price Jr Colon cancer screening [...] * SWATHI BANDAOB: [birth year] (70 yo F)Acc No.[id number]:11/25/2024 COLON WITH MAC Patient: Allison NOWAK DWAIN Provider: Allison Price MD :1955 A ge:69 Y S ex:Female Date:11/25/2024 Address:[address] [place], [place] [id number] Pcp:MANDO TAMAYO Subjective: * Chief Complaints: * [...] 0 11/25/2024 Generated for Elisa barbosa/Silas/Matiitting on: 0 01/15/2025 08:43 AM EDT
--- OUTSIDE RECORDS SUMMARY | 2025-01-08 11:30 | XMS_ITS ---
Author Organization [facility] Address [address] [facility] [address] [place] [address] Care Team Providers Care Pain Management Nurse Practitioner Name Role Phone Case Duff Primary Care Provider UnavailSebastien Lewis Unavailable [phone] Falguni Madsen Unavailable [phone] REASON FOR VISIT pt called and she is still in [place] Medications Medication SIG (Take, Route, Frequency, Duration) [...] Active Encounters Encounter Location Date Provider Diagnosis [address] [address] 01/08/2025 Falguni Madsen Plan Of Treatment Next Appt Details Provider Name:Falguni moody, 01/16/2025 11:30:00 AM, [address] [place] [address], [phone], Progress Notes * Sarahy NEVES MDOB:[birth year] (70 yo F)Acc No.[id number]:01/08/2025 Progress Note Patient: Sarahy RICHARDS Provider: Connie Madsen, RN, MANDATE RETAIL SERVICE MERCHANDISER-C, LENS POLISHER :1955 A ge:70 Y S ex:Female Date:01/08/2025 Address:[address] [place] [address] [id number] Pcp:Case Duff Subjective: * Chief Complaints: * 1 . pt called and she is still in [place]. 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 Patient has been out of facility for several years and has been referred back to [facility] for specialized management of FND. Patient does [...] Electronic signature of MITCH Schmitt CNP on 01/15/2025 at 08:43 AM EDT Sign off status: Pending * Provider: Connie Madsen RN, ELENA MEYER Date: 0 01/08/2025 Generated for Printing/Faxing/eTransmitting on: 0 01/15/2025 08:43 AM EDT
--- OUTSIDE RECORDS SUMMARY | 2025-01-15 08:43 | XMS_ITS | Clinical Summary ---
Author Organization [facility] ity Address [address] [place] [address] Care Team Providers Care Building Consultant Name Role Phone Unavailable Primary Care Provider [...]
--- OUTSIDE RECORDS SUMMARY | 2025-01-15 08:44 | XMS_ITS | Clinical Summary ---
Author Organization [facility] Address [address] [place] [id number] Phone Care Team Providers Care News Camera Person Name Role Phone Case Duff LABOR TRAINER Primary Care Provider + Allergies Active Allergy [...] file Insurance MEDICARE PART [facility] & [facility] [place] [id number] MEDICARE PART A & B [facility] MEDICARE REPLACEMENT MEDICARE PART A & B [facility] MEDICARE REPLACEMENT MEDICARE PART A & B Member Subscriber Plan / Payer (Ef fective 2019-Present) Name:Sarahy Neves Member ID:[id number] Relation to Subscriber:Self Name:Sarahy Neves Subscriber ID:[id number] Payer ID:[id number] Group ID:Not on file Type:Medicare Address: [employer] [address] MEDICARE REPLACEMENT [place] [id number] MEDICARE PART A & B Member Subscriber Plan / Payer (Ef fective 2019-Present) Name:Sarahy Neves Member ID:[id number] Relation to Subscriber:Self Name:Sarahy Neves Subscriber ID:[id number] Payer ID:[id number] Group ID:Not on file Type:Medicare Address: [employer] [address] [place] [id number] [place] [address] MEDICARE REPLACEMENT MEDICARE PART A & B MEDICARE REPLACEMENT [place] [id number] MEDICARE PART A & B MEDICARE REPLACEMENT MEDICARE PART A & B [facility] MEDICARE REPLACEMENT [place] [address] MEDICARE PART A & B [facility] MEDICARE REPLACEMENT Advance Directives For more information, please contact: [phone] (9AM - 5PM [facility], Sunday-Sunday) Documents on File Type Date Recorded Patient Union Carpenter Expl anation Healthcare Proxy 02/13/2019 1:15 PM Healthcare Agents on File Name Relationship Healthcare Agent Relationship Communication Ariel Neves Brother .Primary Health Care Agent (Proxy form on file) Cierra Mojica Sister Alternate Health care Agent (Proxy form on file) Care Teams News Camera Person Relationship Specialty Start Date End Date Case Duff NP [address] [place] [address] PCP - General Family Medicine 02/07/19 Additional Source Comments The information contained in this document represents components of the legal health record. It is not the complete legal health record.[facility]
--- NOTE | 2025-01-15 09:01 | MHC.OFFVIS ---
Vital Signs 01/15/25 09:07 Height 5 ft 0.39 in Weight 117 lb 15.157 oz BMI 22.7 BP 94/58 L Blood Pressure Location Rt brachial Position Sitting Pulse 75 Pulse Source Pulse Oximeter Pulse Oximetry (%) 95 Oxygen Delivery Method Room Air Intake Visit Reasons: Osteoporosis Intake Note: Patient present today for Osteoporosis follow up. Insurance Claims Clerk Required: No Accompanied by: Self / Same As Patient Allergies Penicillins (PENICILLINS) Allergy (Intermediate, Verified 01/15/25 09:08) HIVES carbamazepine (From Tegretol) Allergy (Mild, Verified 01/15/25 09:08) HIVES diflunisal (From Dolobid) Allergy (Mild, Verified 01/15/25 09:08) HIVES erythromycin base (From Edwin-Tab) Allergy (Mild, Verified 01/15/25 09:08) HIVES phenytoin (From Dilantin) Allergy (Mild, Verified 01/15/25 09:08) RASH,HIVES piroxicam (From Feldene) Allergy (Mild, Verified 01/15/25 09:08) HIVES sulfamethoxazole (From Bactrim) Allergy (Mild, Verified 01/15/25 09:08) HIVES trimethoprim (From Bactrim) Allergy (Mild, Verified 01/15/25 09:08) HIVES valproic acid (From Depakene) Allergy (Mild, Verified 01/15/25 09:08) HIVES Depakene Allergy (Unknown, Verified 01/15/25 09:08) Rash hydrochlorothiazide (HYDROCHLOROTHIAZIDE) Allergy (Unknown, Verified 01/15/25 09:08) rash lisinopril (LISINOPRIL) Allergy (Unknown, Verified 01/15/25 09:08) rash galcanezumab-gnlm (From Emgality Pen) Allergy (Verified 01/15/25 09:08) headaches codeine (Codeine) Adverse Reaction (Intermediate, Verified 01/15/25 09:08) NAUSEA & VOMITING rash doxycycline Adverse Reaction (Verified 01/15/25 09:08) Stomach Upset ENVIRONMENTAL Allergy (Intermediate, Uncoded 01/15/25 09:08) ASTHMA,LOSES VOICE TAPE,PLASTIC Allergy (Intermediate, Uncoded 01/15/25 09:08) RASH surgical tape Allergy (Unknown, Uncoded 01/15/25 09:08) unknown Medication List - Last Reconciled 01/15/25 by Mirza Reyes MD albuterol sulfate 2.5 mg (3 mL) inhalation QID PRN 90 days albuterol sulfate 90 mcg/actuation 2 puffs PO Q6H PRN aspirin (Adult Low Dose Aspirin) 81 mg PO DAILY atorvastatin 80 mg PO BEDTIME cetirizine (All Day Allergy (cetirizine)) 10 mg PO DAILY PRN 30 days cholecalciferol (vitamin D3) 50 mcg PO DAILY 90 days clonazepam 0.5 mg PO BID 30 days docusate sodium 100 mg PO BEDTIME ezetimibe 10 mg PO DAILY fludrocortisone 0.1 mg PO DAILY 90 days fluticasone propion-salmeterol 250-50 mcg/dose (Wixela Inhub) 1 ea inhalation BID 90 days fluticasone propionate 50 mcg/actuation 1 spray intranasal DAILY 90 days folic acid 0.8 mg PO DAILY levothyroxine 25 mcg PO DAILY@0630 [[facility]-Mobile unit As directed] magnesium oxide 400 mg PO BEDTIME 90 days meclizine 25 mg PO DAILY PRN melatonin 10 mg PO BEDTIME memantine (Namenda XR) 7 mg PO DAILY 30 days montelukast 10 mg PO BEDTIME oxymetazoline 0.05% (Afrin (oxymetazoline)) 2 sprays intranasal Q12H PRN 3 days riboflavin (vitamin B2) 400 mg PO DAILY 90 days risedronate 35 mg PO MCKEE@0900 sertraline 50 mg PO DAILY sumatriptan succinate 100 mg PO DAILY PRN topiramate 100 mg PO BID 90 days HPI Comments Details: 70 YO Female with PMHx Sx disorder is seen in t follow-up at the request of PCP for Osteoporosis. First diagnosed in 09/10/2020 . Received treatment in the past with alendronate , from 09/2020 to 11/2020 . Could not Tolerated treatment because of muscle aches . No history of pathologic fracture or ONJ. Fx coccyx due to fall 1 yr ago Has no servings of dietary calcium per day i. Does not Takes Calcium supplement Takes 2000 IU of Vitamin D daily. Denies ever using PPI, anticoagulant, does use antiepileptic but took glucocorticoid medication for asthma . Does weight bearing exercise 7 days per week in the form of walking. 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 UTD on dental cleanings and sees dentist every 6 months. No planned upcoming dental work or extractions. DXA dated 09/14/20 :FINDINGS: AP SPINE L1-L4: Current: BMD 1.044 g/cm2, Z-score 0.8, T-score -1.1, osteopenia, 14.6% decrease from baseline (<5% change is not significant). Baseline: BMD 1.223 g/cm2. LEFT FEMUR, NECK: Current: BMD 0.683 g/cm2, Z-score -0.8, T-score -2.6, osteoporosis. Baseline: BMD 0.851 g/cm2. LEFT FEMUR, TOTAL: Current: BMD 0.712 g/cm2, Z-score -0.8, T-score -2.4, osteopenia, 26.1% decrease from baseline (<5% change is not significant). Baseline: BMD 0.964 g/cm2. Labs: Secondary workup was negative Currently on risedronate 35 mg q.week. Admits to occasional non-compliance . Been on risedronate since 05/2022 for 3 years. Recent DEXA showed low bone mass and urine NTX suppressed. [facility] Medical History (Updated 01/13/25 @ 13:11 by Case Duff, [facility]) Osteopenia Conversion disorder with attacks or seizures, acute episode, with psychological stressor Falls Anesthesia complication Liver lesion Ingrown toenail Elevated liver enzymes Concussion with loss of consciousness SOB (shortness of breath) Pain of both earlobes Dizziness New onset headache Otitis externa of both ears Acute effusion of right ear Dermatitis Myalgia Headache REM sleep behavior disorder Convulsion disorder COVID-19 Pre-syncope Dyspnea Chest pain Pneumonia Osteoporosis Screening for osteoporosis CKD (chronic kidney disease) Dyslipidemia Hypothyroid Hyperlipemia Ataxic gait Seizures Asthma Depression Conversion disorder HTN (hypertension) Muscle weakness Hypothyroid Surgical History H/O colonoscopy History of right knee surgery History of lobectomy of thyroid History of arthroscopy of right knee History of ankle surgery History of arthroscopy of left knee History of hysterectomy Family History Father CVD (cardiovascular disease) Stomach ulcer Cardiac arrest H/O heart bypass surgery Mother History of heart attack CHF (congestive heart failure) Lung cancer Diabetes mellitus High cholesterol HTN (hypertension) Hypothyroidism Sister Lung cancer Substance use disorder Brother Colitis Sister No problems noted. Sister Obstetric pulmonary blood clot embolism, antepartum Paternal Aunt Mental health disorder Substance use disorder Maternal Grandmother Mental health disorder Family/Other Substance use disorder Social History Household Members: Family Household Members Other:: brother, 2 cats Housing: House Are you a primary neonatal intensive care nurse to a significant other at home: No Do you presently have visiting nurse or other home services: No Alcohol intake: never Patient Tobacco Use Status: Never used Tobacco e-Cigarette/Vaping Use: Never Used Second Hand Smoke Exposure: No service: No Current occupational status: disabled Cognitive needs: No Hearing needs: No Vision needs: No Physical Exam Vital Signs: Last Vital Signs Pulse 75 01/15/25 09:07 BP 94/58 L 01/15/25 09:07 Pulse Ox 95 01/15/25 09:07 Oxygen Delivery Method Room Air 01/15/25 09:07 BMI result Body Mass Index 22.7 Assessment & Plan Assessment & Plan (1) Osteoporosis: Code(s): M81.0 - Age-related osteoporosis without current pathological fracture Category: Medical Plan: This is a 70-year-old white female with a history of osteoporosis. Secondary causes have been ruled out. Risk factors include surgical hysterectomy as well as past use of chronic steroids. Recent bone density showed improvement into the osteopenic range and urine NTX suppressed. Patient has been on risedronate for 3 years The plan is to discontinue the risedronate and have the patient follow with drug holiday with calcium and vitamin-D. We will recheck urine NTX in 6 months' time Orders: Orders Collagen Crosslinks NTX 5 Months M81.0 - Age-related osteoporosis without current pathological fracture Coding Level of Care Code Est Pt Level 3 (76103) Diagnoses Osteoporosis M81.0
[2025-01-15 09:07] VITALS: BP 94/58; PULSE 75; O2SAT 95; BMI 22.7
== END 2025-01-15 16:39 | disposition home or self-care (01) ==
LOC: HO.ENCR 08:30
PROVIDERS: PCP Nurse Practitioner Family; Visit Provider Internal Medicine Endocrinology, Diabetes & Metabolism
DX: M81.0 Age-related osteoporosis without current pathological fracture (principal)
CPT/HCPCS: 99213

== ENCOUNTER → 2025-01-15 08:29 | Outpatient (BNVA) | payer OTHER, SELFPAY | PROVIDERS: PCP Nurse Practitioner Family; Visit Provider Internal Medicine Endocrinology, Diabetes & Metabolism | DX: M81.0 Age-related osteoporosis without current pathological fracture (principal) | CPT/HCPCS: 99212 ==

== ENCOUNTER 2025-01-27 14:50 | Emergency (ER) | payer OTHER, SELFPAY ==
--- OUTSIDE RECORDS SUMMARY | 2024-11-25 07:50 | XMS_ITS ---
Author Organization [facility] Address [address] [place] [address] Care Team Providers Care Formal Service Waiter Name Role Phone MANDO TAMAYO Primary Care Provider Philippe Tsai Jr [phone] REASON FOR VISIT screening Encounters Encounter Location Date Provider Diagnosis [facility] Outpatient [address] [place] [id number] 11/25/2024 Philippe Price Jr Colon cancer screening [...] * SWATHI BANDAOB: [birth year] (70 yo F)Acc No.[id number]:11/25/2024 COLON WITH MAC Patient: Allison NOWAKSWATHI Provider: Allison Price MD :1955 A ge:69 Y S ex:Female Date:11/25/2024 Address:[address] [place], [place] [address] Pcp:MANDO TAMAYO Subjective: * Chief Complaints: * [...] 11/25/2024 Generated for Elisa barbosa/Silas/Matiitting on: 0 01/27/2025 05:44 PM EDT
--- OUTSIDE RECORDS SUMMARY | 2025-01-08 11:30 | XMS_ITS ---
Author Organization [employer] Address [address] [facility] [address] [place] [address] Care Team Providers Care Theater Education Teacher Name Role Phone Case Duff Primary Care Provider UnavailSebastien Lewis Unavailable [phone] Falguni Madsen Unavailable [phone] REASON FOR VISIT pt called and she is still in [place] Medications Medication SIG (Take, Route, Frequency, Duration) [...] Active Encounters Encounter Location Date Provider Diagnosis [address] [address] 01/08/2025 Falguni Madsen Plan Of Treatment Next Appt Details Provider Name:GABRIELLE GLASS [facility], 02/18/2025 11:30:00 AM, [address] [place] [address], [phone], Provider Name:Falguni moody, 02/20/2025 11:30:00 AM, [address] [place] [address], [phone], Progress Notes * Sarahy NEVES MDOB:[birth year] (70 yo F)Acc No.[id number]:01/08/2025 Progress Note Patient: Sarahy RICHARDS Provider: Connie Madsen, RN, BEST SECOND JOBS-C, SENIOR IT SPECIALIST :1955 A ge:70 Y S ex:Female Date:01/08/2025 Address:[address] [place] [address] [id number] Pcp:Case Duff Subjective: * Chief Complaints: * 1 . pt called and she is still in [place]. 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 Patient has been out of facility for several years and has been referred back to BULLARD MACHINE OPERATOR for specialized management of FND. Patient does [...] Electronic signature of MITCH Schmitt CNP on 01/27/2025 at 05:44 PM EDT Sign off status: Pending * Provider: Connie Madsen RN, ELENA MEYER Date: 01/08/2025 Generated for Printing/Faxing/eTransmitting on: 01/27/2025 05:44 PM EDT
[2025-01-27 15:05] VITALS: BP 130/84; PULSE 76; O2SAT 98
--- NOTE | 2025-01-27 15:10 | ECG_ITS ---
Test Reason : dizziness Blood Pressure : */* mmHG Vent. Rate : 68 BPM Atrial Rate : 68 BPM P-R Int : 168 ms QRS Dur : 78 ms QT Int : 410 ms P-R-T Axes : 74 61 67 degrees QTcB Int : 435 ms Sinus rhythm with occasional Premature ventricular complexes Possible Left atrial enlargement Borderline ECG When compared with ECG of 08-Dec-2024 12:24, Premature ventricular complexes are now Present Referred By: Mame Bansal Electronically Signed By: TABITHA CORRIGAN MD
--- NOTE | 2025-01-27 15:26 | ED_ITS ---
HPI - Syncope General Stated Complaint: WIT SZ BY HOME PT PER EMS Time Seen by Provider: 01/27/25 14:53 Source: patient, EMS and old records reviewed Mode of arrival: EMS Limitations: no limitations History of Present Illness ED Provider: BORIS LEMUS narrative: 70 yo female with PMH of functional neurological disorder and migraine, hx of syncope and collapse with dx by Neurology in past of conversion disorder symptoms. She currently is wearing a holter monitor, ECHO 50-55%, no GWMA, she notes she was with her PT today doing leg exercises when she felt dizzy. Her PT held her and lowered her to the ground and she had 5 min shaking episode with LOC but no postictal symptoms. She tells me she felt weird and dizzy and then woke up with her PT. no trauma, no preceding CP/SOB. This presentation is very similar to her prior syncope/collapse. 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 TENDER) Description of event: tonic-clonic movements Prodromal symptoms: lightheaded Witnessed: Yes - by Bystander Context: during exertion (doing PT leg exercises) Injuries sustained associated with event: none Current symptoms: back to baseline History: other Treatments prior to arrival: none Related Data Home Medications ?Medication ?Instructions ?Recorded ?Confirmed aspirin 81 mg tablet,delayed 81 mg PO DAILY 07/05/20 0 01/15/25 release (Adult Low Dose Aspirin) atorvastatin 80 mg tablet 80 mg PO BEDTIME 12/08/24 docusate sodium 100 mg capsule 100 mg PO BEDTIME 12/0801/15/25 levothyroxine 25 mcg tablet 25 mcg PO DAILY@0612/0801/15/25 melatonin 10 mg tablet 10 mg PO BEDTIME 12/08/24 montelukast 10 mg tablet 10 mg PO BEDTIME 12/08/24 risedronate 35 mg tablet 35 mg PO MCKEE@0912/08/24 sertraline 25 mg tablet 50 mg PO DAILY 12/08/2401/02 sumatriptan succinate 100 mg tablet 100 mg PO DAILY MS N Migraine 12/08/24 01/15/25 Headache Previous Rx's ?Medication ?Instructions ?Recorded albuterol sulfate 2.5 mg/3 mL 2.5 mg (3 mL) inhalation QID PRN 02/09/22 (0.083 %) solution for nebulization shortness of breat h or wheezing 90 days #180 mL [employer]-Mobile unit #1 ea 10/30/22 oxymetazoline 0.05 % nasal spray 2 spray intranasal Q1 2H PRN nasal 10/19/23 (Afrin (oxymetazoline)) congestion 3 days #15 mL fluticasone 250 mcg-salmeterol 50 1 ea inhalation BID 90 days #3 11/27/23 mcg/dose blistr powdr for inhalers inhalation (Nia Inhub) ezetimibe 10 mg tablet 10 mg PO DAILY #90 tabs 01/09 12/02 albuterol sulfate 90 mcg/actuation 2 puff PO Q6H PRN f or wheezing 04/14/24 aerosol inhaler #6.7 grams cetirizine 10 mg tablet (All Day 10 mg PO DAILY PRN al lergy 05/17/24 Allergy (cetirizine)) symptoms 30 days #30 tabs topiramate 100 mg tablet 100 mg PO BID 90 days #180 t abs 06/25/24 folic acid 800 mcg tablet 0.8 mg PO DAILY #90 tabs 09/02 fluticasone propionate 50 1 spray intranasal DAILY 90 days 10/18/24 mcg/actuation nasal #48 grams spray,suspension cholecalciferol (vitamin D3) 50 50 mcg PO DAILY 90 day s #90 caps 11/14/24 mcg (2,000 unit) capsule magnesium oxide 400 mg (241.3 mg 400 mg PO BEDTIME kirill rrhea 90 days 12/24/24 magnesium) tablet #90 tabs riboflavin (vitamin B2) 400 mg 400 mg PO DAILY 90 days #90 tabs 12/24/24 tablet fludrocortisone 0.1 mg tablet 0.1 mg PO DAILY for bloo d pressure 12/25/24 90 days #90 tabs meclizine 25 mg tablet 25 mg PO DAILY PRN dizziness #20 12/25/24 tabs memantine 7 mg capsule 7 mg PO DAILY 30 days #30 ea 01/11/25 sprinkle,extended release 24hr (Namenda XR) clonazepam 0.5 mg tablet 0.5 mg PO BID anxiety/agitat ion 30 01/15/25 days #60 tabs Allergies Allergy/AdvReac Type Severity Reaction Status Date / Time Penicillins (PENICILLINS) Allergy Intermediate HIVES Verified 01/27/25 15:34 carbamazepine (From Tegretol) Allergy Mild HIVES Verified 01/27/25 15:34 diflunisal (From Dolobid) Allergy Mild HIVES Verified 01/27/25 15:34 erythromycin base (From Allergy Mild HIVES Verified 01/27/25 15:34 Edwin-Tab) phenytoin (From Dilantin) Allergy Mild RASH,HIVES Verified 01/27/25 15:34 piroxicam (From Feldene) Allergy Mild HIVES Verified 01/27/25 15:34 sulfamethoxazole (From Allergy Mild HIVES Verified 01/15/25 09:08 Bactrim) trimethoprim (From Bactrim) Allergy Mild HIVES Verified 01/27/25 15:34 valproic acid (From Depakene) Allergy Mild HIVES Verified 01/27/25 15:34 Depakene Allergy Unknown Rash Verified 01/27/25 15:34 hydrochlorothiazide Allergy Unknown rash Verified 01/27/25 15:34 (HYDROCHLOROTHIAZIDE) lisinopril (LISINOPRIL) Allergy Unknown rash Verified 01/27/25 15:34 galcanezumab-gnlm (From Allergy headaches Verified 01/27/25 15:34 Emgality Pen) codeine (Codeine) AdvReac Intermediate NAUSEA & Verified 01/27/25 15:34 VOMITING rash doxycycline AdvReac Stomach Verified 01/27/25 15:34 Upset ENVIRONMENTAL Allergy Intermediate ASTHMA,LOSES Uncoded 01/27/25 15:34 VOICE TAPE,PLASTIC Allergy Intermediate RASH Uncoded 01/27/25 15:34 surgical tape Allergy Unknown unknown Uncoded 01/27/25 15:34 Review of Systems Review of Systems: Constitutional : No Fever, No Chills, No Fatigue ENT/Mouth : No sore throat, No Rhinorrhea Eyes: No Eye Pain, No Swelling, No Redness Cardiovascular : No Chest Pain, No SOB, No Dyspnea on Exertion Respiratory : No Cough, No Sputum Gastrointestinal : No Nausea, No Vomiting, No Diarrhea, No abdominal Pain Genitourinary : No Dysuria, No Urinary Frequency, No Hematuria, Musculoskeletal : No joint pain, No Myalgias, No Joint Swelling Skin : No Skin Lesions, No rash Neuro : No Weakness, No Numbness, No Dizziness, no Headache All other systems reviewed and are negative [facility] Past Medical History Attestation statement: The following information was validated with the patient. Source: old records reviewed Medical History Osteopenia Conversion disorder with attacks or seizures, acute episode, with psychological stressor Falls Anesthesia complication Liver lesion Ingrown toenail Elevated liver enzymes Concussion with loss of consciousness SOB (shortness of breath) Pain of both earlobes Dizziness New onset headache Otitis externa of both ears Acute effusion of right ear Dermatitis Myalgia Headache REM sleep behavior disorder Convulsion disorder COVID-19 Pre-syncope Dyspnea Chest pain Pneumonia Osteoporosis Screening for osteoporosis CKD (chronic kidney disease) Dyslipidemia Hypothyroid Hyperlipemia Ataxic gait Seizures Asthma Depression Conversion disorder HTN (hypertension) Muscle weakness Hypothyroid Surgical History H/O colonoscopy History of right knee surgery History of lobectomy of thyroid History of arthroscopy of right knee History of ankle surgery History of arthroscopy of left knee History of hysterectomy Family History Family History Father CVD (cardiovascular disease) Stomach ulcer Cardiac arrest H/O heart bypass surgery Mother History of heart attack CHF (congestive heart failure) Lung cancer Diabetes mellitus High cholesterol HTN (hypertension) Hypothyroidism Sister Lung cancer Substance use disorder Brother Colitis Sister No problems noted. Sister Obstetric pulmonary blood clot embolism, antepartum Paternal Aunt Mental health disorder Substance use disorder Maternal Grandmother Mental health disorder Family/Other Substance use disorder Social History Social History Household Members: Family Household Members Other:: brother, 2 cats Housing: House Are you a primary continuum of care manager to a significant other at home: No Do you presently have visiting nurse or other home services: No Alcohol intake: never Patient Tobacco Use Status: Never used Tobacco e-Cigarette/Vaping Use: Never Used Second Hand Smoke Exposure: No service: No Current occupational status: disabled Cognitive needs: No Hearing needs: No Vision needs: No Physical Exam Vital Signs: Appearance: Alert. Oriented X3. No acute distress. Not postictal Eyes: Pupils equal, round and reactive to light. ENT: Pharynx normal. no tongue biting Neck: Normal inspection. Neck supple. CVS: Normal heart rate and rhythm. Pulses normal. Respiratory: No respiratory distress. Breath sounds normal. Abdomen: Soft and nontender. Skin: Skin warm and dry. Normal skin color. Normal skin turgor. Extremities: No lower extremity edema. No calf ttp Neuro: Oriented X 3. No motor deficit. No sensory deficit. CN2-12 intact Medical Decision Making Medical Decision Making [facility] Narrative: 70 yo female with PMH of functional neurological disorder and migraine, hx of syncope and collapse with dx by Neurology in past of conversion disorder symptoms here with c/o similar presentation of feeling off then abnormal collapse and caught by PT then shaking movements but no postical state and no incontinence or tongue biting. At this time will obtain basic labs and provide supportive care. Differential Diagnosis Differential Diagnoses: The differential diagnosis associated with the presen tation includes anxiety, conversion disorder, syncopal episode Admission/Observation Consideration of admission/observation: Escalation of care including admission/observation considered stable for DC, negative work up at baseline Lab Data [facility] Lab Attestation statement: I reviewed the patient's lab results. Independent Interpretation I performed an independent interpretation of an: EKG Interpretation: Rate: 68 Rhythm: NSR [place]: normal Normal P waves. Normal CLIVE. Normal QRS complex. ST T wave : normal no ADIS qTC: 435 prior studies: no acute ischemia The study has been interpreted contemporaneously by me. . Independent Historian Clinical information obtained from an independent historian. History obtained from or confirmed by: EMS External Record Review External record reviewed: Inpatient record and Outpatient record Discharge Plan Discharge Clinical Impression: Conversion disorder with attacks or seizures, acute episode, with psychological stressor Patient Disposition: Home, Self-Care Instructions: Syncope (ED) Additional Instructions: our labs and EKG are reassuring please return for any worsening symptoms or concerns rest and stay hydrated. Prescriptions: No Action (DME) Lifeline-Mobile unit See Rx Instructions .Route .MEDSUPPLY Qty: 1 0RF Rx Instructions: As directed fluticasone propion-salmeterol [Wixela Inhub] 250-50 mcg/dose blister with device 1 ea inhalation BID 90 Days Qty: 3 4RF ezetimibe 10 mg tablet 10 mg PO DAILY Qty: 90 1RF albuterol sulfate 90 mcg/actuation HFA aerosol inhaler 2 puff PO Q6H PRN (Reason: for wheezing) Qty: 6.7 0RF folic acid 800 mcg tablet 0.8 mg PO DAILY Qty: 90 1RF fluticasone propionate 50 mcg/actuation spray,suspension 1 spray intranasal DAILY 90 Days Qty: 48 1RF Rx Instructions: administer into each nostril cholecalciferol (vitamin D3) 50 mcg (2,000 unit) capsule 50 mcg PO DAILY 90 Days Qty: 90 1RF riboflavin (vitamin B2) 400 mg tablet 400 mg PO DAILY 90 Days Qty: 90 3RF magnesium oxide 400 mg (241.3 mg magnesium) tablet 400 mg PO BEDTIME 90 Days Qty: 90 3RF meclizine 25 mg tablet 25 mg PO DAILY PRN (Reason: dizziness) Qty: 20 0RF memantine [Namenda XR] 7 mg capsule,sprinkle,ER 24hr 7 mg PO DAILY 30 Days Qty: 30 0RF Rx Instructions: then increase to Namenda ER 14mg daily clonazepam 0.5 mg tablet 0.5 mg PO BID 30 Days Qty: 60 3RF atorvastatin 80 mg tablet 80 mg PO BEDTIME levothyroxine 25 mcg tablet 25 mcg PO DAILY@0630 montelukast 10 mg tablet 10 mg PO BEDTIME risedronate 35 mg tablet 35 mg PO MCKEE@0900 sertraline 25 mg tablet 50 mg PO DAILY sumatriptan succinate 100 mg tablet 100 mg PO DAILY PRN (Reason: Migraine Headache) docusate sodium 100 mg Capsule 100 mg PO BEDTIME melatonin 10 mg Tablet 10 mg PO BEDTIME aspirin [Adult Low Dose Aspirin] 81 mg tablet,delayed release (DR/EC) 81 mg PO DAILY albuterol sulfate 2.5 mg /3 mL (0.083 %) solution for nebulization 2.5 mg inhalation QID PRN (Reason: shortness of breath or wheezing) 90 Days Qty: 180 0RF Rx Instructions: for neb oxymetazoline [Afrin (oxymetazoline)] 0.05 % spray,non-aerosol 2 spray intranasal Q12H PRN (Reason: nasal congestion) 3 Days Qty: 15 0RF topiramate 100 mg tablet 100 mg PO BID 90 Days Qty: 180 1RF cetirizine [All Day Allergy (cetirizine)] 10 mg tablet 10 mg PO DAILY PRN (Reason: allergy symptoms) 30 Days Qty: 30 0RF fludrocortisone 0.1 mg tablet 0.1 mg PO DAILY 90 Days Qty: 90 1RF Print Language: Nepali
[2025-01-27 15:32] VITALS: BP 163/105; PULSE 77; RESP 18; TEMP 36.6; O2SAT 98; BMI 27.0
[2025-01-27 15:51] VITALS: BP 163/105; PULSE 77; RESP 18; TEMP 36.6; O2SAT 98
--- NOTE | 2025-01-27 15:52 | PC.NURSE ---
70 F presents to ED after a possible seizure with upper extremities shaking for 15 seconds, witnessed by home PT. Pt sts she woke up on the floor, generalized body pain but no specific pain from incident. RR even and unlabored, denies CP or SOB. Pt recently wearing holter monitor per EMS. A+OX4, anxious, cooperative. Pt ambulatory but gait a little unsteady.
[2025-01-27 16:19] LABS: MANUAL DIFF FLAG NO
[2025-01-27 16:21] LABS: Hematocrit 37.5 % (37.0-47.0); Hemoglobin 12.0 g/dl (12.0-16.0); Imm Gran Abs Auto 0.02 X10*3/uL (0.00-0.03); Imm Gran Pct Auto 0.3 % (0.0-0.4); Lymphocytes Absolute Auto 1.5 X10*3/uL (1.2-4.9); Mean Corpuscular HGB Conc 32.0 g/dl (31.0-35.0); Mean Corpuscular Hemoglobin 30.5 pg (27.0-33.0); Mean Corpuscular Volume 95.4 fL (80.0-98.0); NRBC Abs Auto 0.000 X10*3/uL (0.0-0.012); NRBC Pct Auto 0.0 /100WBC (0.0-0.2); Platelet Count 295 X10*3/uL (160-400); Red Blood Count 3.93 X10*6/uL (4.20-5.50); White Blood Count 6.2 X10*3/uL (4.8-10.8)
[2025-01-27 16:34] LABS: Anion Gap 10 (12-20); Blood Urea Nitrogen 19 mg/dL (9-16); Calcium 9.0 mg/dL (8.4-10.2); Carbon Dioxide 23 mmol/L (22-29); Chloride 112 mmol/L (96-108); Creatinine Clr Calc Pharmacy 46.3; Estimated Glomerular Filt Rate > 60; Magnesium 2.1 mg/dL (1.6-2.6); Potassium 4.2 mmol/L (3.3-5.1); Sodium 141 mmol/L (135-145)
--- NOTE | 2025-01-27 16:38 | PC.NURSE ---
pt is alert and oriented, no seizure activity the entire time in the ED, seizure pads in place for precautions, plan to go home via ambulance, eta at this time is 1800
[2025-01-27 16:42] LABS: Troponin-I High Sensitivity < 2.7 ng/L (<3.5-17.0)
[2025-01-27 17:19] VITALS: BP 177/76; PULSE 67; RESP 18; TEMP -17.7; TEMP 0; O2SAT 100
[2025-01-27 17:20] VITALS: BP 177/76; PULSE 67; RESP 18; TEMP -17.7; TEMP 0; O2SAT 100
--- OUTSIDE RECORDS SUMMARY | 2025-01-27 17:44 | XMS_ITS | Clinical Summary ---
Author Organization [facility] Address [address] [place] [address] Phone Care Team Providers Care Ticket Marker Name Role Phone Case Duff DEAL ARCHITECT Primary Care Provider + Allergies Active Allergy [...] file Insurance MEDICARE PART A & B [facility] MEDIC[facility] REPLACEMENT [place] [id number] MEDICARE PART A & B [facility] MEDICARE REPLACEMENT MEDICARE PART A & B Member Subscriber Plan / Payer ( fective 2019-) Name:Pura Sarahy Villatoro Member ID:[id number] Relation to Subscriber:Self Name:Sarahy Neves Subscriber ID:[id number] Payer ID:[id number] Group ID:Not on file Type:Medicare Address: [employer] [address] [place] [phone] [facility] MEDICARE REPLACEMENT MEDICARE PART A & B Member Subscriber Plan / Payer (Ef fective 2019-Present) Name:Sarahy Neves Member ID:[id number] Relation to Subscriber:Self Name:Sarahy Neves Subscriber ID:[id number] Payer ID:[id number] Group ID:Not on file Type:Medicare Address: [employer] [address] MEDICARE REPLACEMENT [place] [id number] MEDICARE PART A & B [facility] MEDICARE REPLACEMENT MEDICARE PART A & B MEDICARE REPLACEMENT [place] [id number] MEDICARE PART A & B MEDICARE REPLACEMENT MEDICARE PART A & B [facility] SCO MEDICARE REPLACEMENT [place] [id number] MEDICARE PART A & B [facility] SCO MEDICARE REPLACEMENT Advance Directives For more information, please contact: [phone] (9AM - 5PM [facility], Sunday-Sunday) Documents on File Type Date Recorded Patient Salesperson Household Appliances Expl anation Healthcare Proxy 02/13/2019 1:15 PM Healthcare Agents on File Name Relationship Healthcare Agent Relationship Communication Ariel Neves Brother .Primary Health Care Agent (Proxy form on file) Cierra Mojica Sister Alternate Health care Agent (Proxy form on file) Care Teams Ticket Marker Relationship Specialty Start Date End Date Case Duff NP [facility] [place] [place] [address] PCP - General Family Medicine 02/07/19 Additional Source Comments The information contained in this document represents components of the legal health record. It is not the complete legal health record.[facility]
--- OUTSIDE RECORDS SUMMARY | 2025-01-27 17:44 | XMS_ITS | Clinical Summary ---
Author Organization [facility] ity Address [address] [place] [address] Care Team Providers Care Concession Attendant Name Role Phone Unavailable Primary Care Provider [...]
--- OUTSIDE RECORDS SUMMARY | 2025-02-10 20:00 | XMS_ITS | Clinical Summary ---
Author Organization Unknown Care Team Providers Care Hvac Field Service Technician Name Role Phone RONI ALVARADO, MANDO Unavailable Unavailable RIZWANA AQUINO, FRED Unavailable Unavailable Payers Payer Name Policy Type Policy Number Effective Date Expira tion Date [facility] [id number] [facility]ID [facility] [id number] MEDICARE - [facility] [id number] Problems Condition Name Condition Details Condition Category [...] mg chewable tablet 12-14 00:00: 00 Yes [id number] 1 tablet DAILY 1 tablet DAILY (route: oral) Med Classific ation: Hematolog ical Agents atorvastati n 80 mg tablet 12-14 00:00: 00 Yes [id number] 1 tablet BEDTIME 1 tablet BEDTIME (route: oral) Med Classific ation: Cardiovas cular Therapy Agents cetirizine 10 mg tablet 12-14 00:00: 00 Yes [id number] 1 tablet DAILY 1 tablet DAILY (route: oral) Med Classific ation: Respirato ry Therapy Agents clonazepam 0.5 mg tablet 12-14 00:00: 00 Yes [id number] PRN FOR ANXIETY/MINH TATiON 1 tablet 2 TIMES DAILY 1 tablet 2 TIMES DAILY (route: oral) Med Classific ation: Central Nervous System Agents docusate sodium 100 mg capsule 12-14 00:00: 00 Yes [id number] 1 capsule BEDTIME 1 capsule BEDTIME (route: oral) Med Classific ation: Gastroint estinal Therapy Agents ezetimibe 10 mg tablet 12-14 00:00: 00 Yes [id number] 1 tablet DAILY 1 tablet DAILY (route: oral) Med Classific ation: Cardiovas cular Therapy Agents fludrocorti sone 0.1 mg tablet 12-14 00:00: 00 Yes [id number] 1 tablet DAILY 1 tablet DAILY (route: oral) Med Classific ation: Endocrine folic acid 800 mcg tablet 12-14 00:00: 00 Yes [id number] 1 tablet DAILY 1 tablet DAILY (route: oral) Med Classific ation: Electroly te Balance-N utritiona l Products levothyroxi ne 25 mcg tablet 12-14 00:00: 00 Yes [id number] 1 tablet DAILY 1 tablet DAILY (route: oral) Med Classific ation: Endocrine magnesium 400 mg (as magnesium oxide) tablet 12-14 00:00: 00 Yes [id number] 1 tablet BEDTIME 1 tablet BEDTIME (route: oral) Med Classific ation: Electroly te Balance-N utritiona l Products melatonin 10 mg tablet 12-14 00:00: 00 Yes [id number] 1 tablet BEDTIME 1 tablet BEDTIME (route: oral) Med Classific ation: Central Nervous System Agents montelukast 10 mg tablet 12-14 00:00: 00 Yes [id number] 1 tablet BEDTIME 1 tablet BEDTIME (route: oral) Med Classific ation: Respirato ry Therapy Agents sertraline 25 mg tablet 12-14 00:00: 00 01-19 23:59 :00 No [id number] 2 tablet DAILY 2 tablet DAILY (route: oral) Med Classific ation: Central Nervous System Agents sumatriptan 100 mg tablet 12-14 00:00: 00 Yes [id number] 1 tablet DAILY 1 tablet DAILY (route: oral) Med Classific ation: Central Nervous System Agents topiramate 100 mg tablet 12-14 00:00: 00 Yes [id number] 1 tablet 2 TIMES DAILY 1 tablet 2 TIMES DAILY (route: oral) Med Classific ation: Central Nervous System Agents sertraline 25 mg tablet 01-19 00:00: 00 Yes [id number] 3 tablet EVERY AM 3 tablet EVERY AM (route: oral) Med Classific ation: Central Nervous System Agents Vital Signs Vital Name Observation Time Observation Value Commen ts Temperature 2025-01-20 14:29:00.000 97.4 [degF] Temperature 2025-01-12 15:11:00.000 97.2 [degF] Temperature 2025-01-10 12:29:00.000 97.4 [degF] Temperature 2025-01-01 16:32:00.000 97.4 [degF] Temperature 2024-12-22 14:17:00.000 97.2 [degF] Temperature 2024-12-22 08:54:00.000 97.9 [degF] Temperature 2024-12-14 11:54:00.000 96.3 [degF] BMI (%) 2024-12-14 11:54:00.000 22 kg/m2 Height 2024-12-14 11:54:00.000 60 [in_us] Pulse 2025-01-23 09:18:00.000 76 /min Pulse 2025-01-21 09:24:00.000 76 /min Pulse 2025-01-20 14:29:00.000 74 /min Pulse 2025-01-19 12:34:00.000 78 /min Pulse 2025-01-14 09:45:00.000 86 /min Pulse 2025-01-12 15:11:00.000 78 /min Pulse 2025-01-12 09:54:00.000 69 /min Pulse 2025-01-10 12:29:00.000 72 /min Pulse 2025-01-09 12:22:00.000 71 /min Pulse 2025-01-07 09:37:00.000 70 /min Pulse 2025-01-05 13:00:00.000 73 /min Pulse 2025-01-01 16:32:00.000 74 /min Pulse 2024-12-24 12:40:00.000 78 /min Pulse 2024-12-22 14:17:00.000 71 /min Pulse 2024-12-22 08:54:00.000 80 /min Pulse 2024-12-17 13:54:00.000 69 /min Pulse 2024-12-14 11:54:00.000 74 /min O2 Saturation (%) 2025-01-19 12:34:00.000 99 % O2 Saturation (%) 2025-01-14 09:45:00.000 99 % O2 Saturation (%) 2025-01-12 09:54:00.000 99 % O2 Saturation (%) 2025-01-09 12:22:00.000 99 % O2 Saturation (%) 2025-01-07 09:37:00.000 99 % O2 Saturation (%) 2025-01-05 13:00:00.000 99 % O2 Saturation (%) 2024-12-22 08:54:00.000 98 % O2 Saturation (%) 2024-12-17 13:54:00.000 99 % Respirations 2025-01-23 09:18:00.000 20 /min Respirations 2025-01-21 09:24:00.000 20 /min Respirations 2025-01-20 14:29:00.000 18 /min Respirations 2025-01-19 12:34:00.000 20 /min Respirations 2025-01-14 09:45:00.000 20 /min Respirations 2025-01-12 15:11:00.000 16 /min Respirations 2025-01-12 09:54:00.000 20 /min Respirations 2025-01-10 [...] 2024-12-14 11:54:00.000 116 [lb_av] Systolic Blood Pressure 2025-01-23 09:18:00.000 108 mm [Hg] Systolic Blood Pressure 2025-01-21 09:24:00.000 116 mm [Hg] Systolic Blood Pressure 2025-01-20 14:29:00.000 116 mm [Hg] Systolic Blood Pressure 2025-01-19 12:34:00.000 101 mm [Hg] Systolic Blood Pressure 2025-01-14 09:45:00.000 110 mm [Hg] Systolic Blood Pressure 2025-01-12 15:11:00.000 130 mm [Hg] Systolic Blood Pressure 2025-01-12 09:54:00.000 126 mm [...] 11:54:00.000 103 mm [Hg] Diastolic Blood Pressure 2025-01-23 09:18:00.000 81 mm [Hg] Diastolic Blood Pressure 2025-01-21 09:24:00.000 78 mm [Hg] Diastolic Blood Pressure 2025-01-20 14:29:00.000 68 mm [Hg] Diastolic Blood Pressure 2025-01-19 12:34:00.000 61 mm [Hg] Diastolic Blood Pressure 2025-01-14 09:45:00.000 62 mm [Hg] Diastolic Blood Pressure 2025-01-12 15:11:00.000 73 mm [Hg] Diastolic Blood Pressure 2025-01-12 09:54:00.000 [...] AWARENESS FOR SAFETY AND WILL NOTIFY CLINICAL COIL TIER AND PHYSICIAN/PROVIDER WITH ANY CHANGE IN CONDITION. [code = SKILLED NURSE WILL MAINTAIN SITUATIONAL AWARENESS FOR SAFETY AND WILL NOTIFY CLINICAL COIL TIER AND PHYSICIAN/PROVIDER WITH ANY CHANGE IN CONDITION.] [...] CARE WILL BE ESTABLISHED THAT MEETS PATIENT'S PRISON NEEDS AND INCLUDES PATIENT GOAL FOR HOME [...] MANAGE EXACERBATION BY END OF THE EPISODE. Encounters Start Date/Time End Date/Time Encounter Type Admission Type Attending [facility] Care Facility Care Department Encounter ID Discharge Date Discharge Status Discharge Condition Discharge Reason Percent Goals Met 2024-12-14 00:00:00 2025-02-11 00:00:00 Outpatient NEW ADMISSION FRED WAGONER [facility] [id number] 68.18
== END 2025-01-27 17:21 | disposition home or self-care (01) ==
PROVIDERS: Emergency Provider Emergency Medicine; PCP Nurse Practitioner Family
DX: F44.5 Conversion disorder with seizures or convulsions (principal); R42 Dizziness and giddiness
CPT/HCPCS: 36415; 80048; 83735; 84484; 85025; 93005; 99283; 99284

== ENCOUNTER → 2025-01-27 15:10 | Outpatient (BNV) | payer OTHER, SELFPAY | PROVIDERS: Emergency Provider Emergency Medicine; PCP Nurse Practitioner Family; Visit Provider Internal Medicine Cardiovascular Disease | DX: I49.3 Ventricular premature depolarization (principal) | CPT/HCPCS: 93010 ==

== ENCOUNTER 2025-02-02 14:24 | Outpatient (AMB) | payer OTHER, SELFPAY ==
--- OUTSIDE RECORDS SUMMARY | 2024-10-10 06:50 | XMS_ITS ---
Author Organization [facility] [place] Address [address] [place] [address] Care Team Providers Care Language Arts Teacher Name Role Phone MANDO TAMAYO Primary Care Provider Philippe Tsai Jr REASON FOR VISIT screening Encounters Encounter Location Date Provider Diagnosis [facility] [place] [address] [place] [id number] 10/10/2024 Philippe Price Jr Plan Of Treatment No Information Progress Notes * GENESISMaryam SWATHI BORJASEDOB: [birth year] (70 yo F)Acc No.[id number]:10/10/2024 COLON WITH MAC Patient: SWATHI RICHARDS Provider: Allison Price MD :1955 A ge:69 Y S ex:Female Date:10/10/2024 Address:[facility] [id number] Pcp:MANDO TAMAYO Subjective: * Chief Complaints: * [...] 0 10/10/2024 Generated for Printi ng/Faxing/eTransmitting on: 0 02/02/2025 04:03 PM EDT
--- OUTSIDE RECORDS SUMMARY | 2024-11-25 07:50 | XMS_ITS ---
Author Organization [facility] Address [address] [place] [address] Care Team Providers Care Anodize Machine Operator Name Role Phone MANDO TAMAYO Primary Care Provider Philippe Tsai Jr REASON FOR VISIT screening Encounters Encounter Location Date Provider Diagnosis [facility] [place] [address] [place] [id number] 11/25/2024 Philippe Price Jr Colon cancer screening [...] * SWATHI BANDAOB: [birth year] (70 yo F)Acc No.[id number]:11/25/2024 COLON WITH MAC Patient: Allison NOWAK DWAIN Provider: Allison Price MD :1955 A ge:69 Y S ex:Female Date:11/25/2024 Address:[address] [place], [place] [id number] Pcp:MANDO TAMAYO Subjective: * Chief Complaints: * [...] 11/25/2024 Generated for Elisa barbosa/Silas/Matiitting on: 0 02/02/2025 04:02 PM EDT
--- OUTSIDE RECORDS SUMMARY | 2025-01-08 11:30 | XMS_ITS ---
Author Organization [employer] Address [address] [facility] [address] [place] [address] Care Team Providers Care Soap Press Feeder Name Role Phone Case Duff Primary Care Provider UnavailSebastien Lewis Unavailable [phone] Falguni Madsen Unavailable [phone] REASON FOR VISIT pt called and she is still in [place] Medications Medication SIG (Take, Route, Frequency, Duration) [...] Active Encounters Encounter Location Date Provider Diagnosis [address] [address] 01/08/2025 Falguni Madsen Plan Of Treatment Next Appt Details Provider Name:GABRIELLE GLASS [facility], 02/18/2025 11:30:00 AM, [address] [place] [address], [phone], Provider Name:Falguni moody, 02/20/2025 11:30:00 AM, [address] [place] [address], [phone], Progress Notes * Sarahy NEVES MDOB:[birth year] (70 yo F)Acc No.[id number]:01/08/2025 Progress Note Patient: Sarahy RICHARDS Provider: Connie Madsen, RN, CITY EDITOR-C, SMALL ENGINE MECHANIC :1955 A ge:70 Y S ex:Female Date:01/08/2025 Address:[address] [place] [address] [id number] Pcp:Case Duff Subjective: * Chief Complaints: * 1 . pt called and she is still in [place]. 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 Patient has been out of facility for several years and has been referred back to STERILIZATION SPECIALIST for specialized management of FND. Patient does [...] Electronic signature of MITCH Schmitt CNP on 02/02/2025 at 04:02 PM EDT Sign off status: Pending * Provider: Connie Madsen RN, ELENA MEYER Date: 01/08/2025 Generated for Printing/Faxing/eTransmitting on: 02/02/2025 04:02 PM EDT
[2025-02-02 14:28] VITALS: BP 111/62; PULSE 73; O2SAT 97; BMI 22.5
--- NOTE | 2025-02-02 14:28 | MHC.OFFVIS ---
Vital Signs 02/02/25 14:28 Height 5 ft Weight 115 lb BMI 22.5 BP 111/62 Blood Pressure Location Lt brachial Position Sitting Pulse 73 Pulse Source Pulse Oximeter Pulse Oximetry (%) 97 Oxygen Delivery Method Room Air Comment Verbal Weight , pt refused Intake Visit Reasons: Shortness of breath Allergies Penicillins (PENICILLINS) Allergy (Intermediate, Verified 01/27/25 15:34) HIVES carbamazepine (From Tegretol) Allergy (Mild, Verified 01/27/25 15:34) HIVES diflunisal (From Dolobid) Allergy (Mild, Verified 01/27/25 15:34) HIVES erythromycin base (From Edwin-Tab) Allergy (Mild, Verified 01/27/25 15:34) HIVES phenytoin (From Dilantin) Allergy (Mild, Verified 01/27/25 15:34) RASH,HIVES piroxicam (From Feldene) Allergy (Mild, Verified 01/27/25 15:34) HIVES sulfamethoxazole (From Bactrim) Allergy (Mild, Verified 01/15/25 09:08) HIVES trimethoprim (From Bactrim) Allergy (Mild, Verified 01/27/25 15:34) HIVES valproic acid (From Depakene) Allergy (Mild, Verified 01/27/25 15:34) HIVES Depakene Allergy (Unknown, Verified 01/27/25 15:34) Rash hydrochlorothiazide (HYDROCHLOROTHIAZIDE) Allergy (Unknown, Verified 01/27/25 15:34) rash lisinopril (LISINOPRIL) Allergy (Unknown, Verified 01/27/25 15:34) rash galcanezumab-gnlm (From Emgality Pen) Allergy (Verified 01/27/25 15:34) headaches codeine (Codeine) Adverse Reaction (Intermediate, Verified 01/27/25 15:34) NAUSEA & VOMITING rash doxycycline Adverse Reaction (Verified 01/27/25 15:34) Stomach Upset ENVIRONMENTAL Allergy (Intermediate, Uncoded 01/27/25 15:34) ASTHMA,LOSES VOICE TAPE,PLASTIC Allergy (Intermediate, Uncoded 01/27/25 15:34) RASH surgical tape Allergy (Unknown, Uncoded 01/27/25 15:34) unknown HPI HPI Shortness of breath: Details: 70-year-old lady, nonsmoker, followed for asthma and environmental allergies. Patient continues on generic Wixela and albuterol MDI / nebs with reasonable control of her symptoms. She denies recent exacerbations. Her allergy symptoms reasonable controlled on Singulair and as needed Flonase. [facility] Medical History Osteopenia Conversion disorder with attacks or seizures, acute episode, with psychological stressor Falls Anesthesia complication Liver lesion Ingrown toenail Elevated liver enzymes Concussion with loss of consciousness SOB (shortness of breath) Pain of both earlobes Dizziness New onset headache Otitis externa of both ears Acute effusion of right ear Dermatitis Myalgia Headache REM sleep behavior disorder Convulsion disorder COVID-19 Pre-syncope Dyspnea Chest pain Pneumonia Osteoporosis Screening for osteoporosis CKD (chronic kidney disease) Dyslipidemia Hypothyroid Hyperlipemia Ataxic gait Seizures Asthma Depression Conversion disorder HTN (hypertension) Muscle weakness Hypothyroid Surgical History H/O colonoscopy History of right knee surgery History of lobectomy of thyroid History of arthroscopy of right knee History of ankle surgery History of arthroscopy of left knee History of hysterectomy Family History Father CVD (cardiovascular disease) Stomach ulcer Cardiac arrest H/O heart bypass surgery Mother History of heart attack CHF (congestive heart failure) Lung cancer Diabetes mellitus High cholesterol HTN (hypertension) Hypothyroidism Sister Lung cancer Substance use disorder Brother Colitis Sister No problems noted. Sister Obstetric pulmonary blood clot embolism, antepartum Paternal Aunt Mental health disorder Substance use disorder Maternal Grandmother Mental health disorder Family/Other Substance use disorder Social History Household Members: Family Household Members Other:: brother, 2 cats Housing: House Are you a primary rental boats caretaker to a significant other at home: No Do you presently have visiting nurse or other home services: No Alcohol intake: never Patient Tobacco Use Status: Never used Tobacco e-Cigarette/Vaping Use: Never Used Second Hand Smoke Exposure: No service: No Current occupational status: disabled Cognitive needs: No Hearing needs: No Vision needs: No Review of Systems Const Denies daytime sleepiness, Denies excessive sweating, Denies fatigue, Denies fever(s), Denies lethargy, Denies malaise, Denies night sweats, Denies snoring and Denies weight loss Eyes Denies blurry vision and Denies itchy eyes ENT Denies nasal congestion, Denies post nasal drip, Denies sinus pain, Denies sinus pressure and Denies other ( Thrush) Card Denies chest pain, Denies pedal edema, Denies dyspnea, Denies orthopnea and Denies paroxysmal nocturnal dyspnea Resp Denies cough, Denies hemoptysis, Denies excessive phlegm production, Denies dyspnea, Denies snoring and Denies wheezing GI Denies abdominal pain and Denies heartburn Musc Denies myalgias, Denies arthralgias and Denies joint swelling Skin/Breast Denies rash Neuro Denies memory loss and Denies seizure-like activity Psych Denies abnormal sleep pattern, Denies anxiety and Denies memory loss Endo Denies excessive sweating, Denies fatigue and Denies heat intolerance Sherman/Lymph Denies easy bruising Aller/Immun Denies itchy eyes, Denies seasonal rhinorrhea and Denies wheezing Physical Exam Vital Signs: Last Vital Signs Pulse 73 02/02/25 14:28 BP 111/62 02/02/25 14:28 Pulse Ox 97 02/02/25 14:28 Oxygen Delivery Method Room Air 02/02/25 14:28 BMI result Body Mass Index 22.5 Const General: no acute distress and alert Nutritional Appearance: not obese Orientation/consciousness: Other orientation findings ( oriented) HEENT Head: Yes atraumatic Eyes General: appearance normal, both eyes and all related structures Sclerae: sclerae normal EOM: EOMs intact bilaterally Neck Neck: Yes supple Lymphatic: no lymphadenopathy noted Resp Effort & Inspection: normal respiratory effort and no use of accessory muscles Auscultation: clear to auscultation bilaterally Cardio Rate: regular rate Rhythm: regular rhythm Heart sounds: no gallops, no murmurs and no rubs Skin General skin exam: other ( warm) Extrem General: No clubbing, No cyanosis and No edema Assessment & Plan Assessment & Plan (1) Asthma: Code(s): J45.909 - Unspecified asthma, uncomplicated Category: Medical Plan: Well controlled on current regimen of Wixela and albuterol MDI. Continue current regimen. (2) Environmental allergies: Code(s): Z91.09 - Other allergy status, other than to drugs and biological substances Category: Medical Plan: Well controlled on Singulair, Zyrtec, and Flonase. Continue current regimen. Coding Level of Care Code Est Pt Level 4 (09985) Diagnoses Asthma J45.909 Environmental allergies Z91.09
--- OUTSIDE RECORDS SUMMARY | 2025-02-02 16:03 | XMS_ITS | Clinical Summary ---
Author Organization [facility] ity Address [address] [place] [address] Care Team Providers Care Foot Roentgenologist Name Role Phone Unavailable Primary Care Provider [...]
--- OUTSIDE RECORDS SUMMARY | 2025-02-02 16:03 | XMS_ITS | Patient Health Record ---
Author Organization [facility] Address [address] [place] [address] Care Team Providers Care Rabbler Name Role Phone MadhaviCase snell Primary Care Provider UnavailSebastien Lewis Unavailable [phone] GABRIELLE BOO Unavailable [phone] Falguni Madsen Unavailable [phone] Allergies Allergen (clinical drug ingredient) Drug/Non Drug [...] Active diflunisal Dolobid Unknown Drug Allergy Active Results Component Value Reference Range Notes Echocardiogram Reviewed date:01/16/2025 01:09:52 PM Interpretation: Performing Lab: Notes/Report: MR-Brain (C-) CPT 11920 Reviewed date:01/12/2025 10:12:33 AM Interpretation: Performing Lab: Notes/Report: Reason For Referral No Information Medications Medication SIG (Take, Route, Frequency, Duration) Notes Start Date End Date Status Albuterol Sulfate (2.5 MG/3ML) 0.083% 3 mL as needed Inhalation every 6 hrs Active KlonoPIN 0.5 MG 1 tablet Orally twic e a day Active ProAir HFA 108 (90 Base) MCG/ACT 2 puffs Inhalation every 4 hrs As needed Active Levothyroxine Sodium 25 MCG 1 tablet in the morning on an empty stomach Orally Once a day; Duration: 30 days Active Meclizine HCl 25 MG 1 tablet as needed Orally every 12 hrs Active Flonase Allergy Relief 50 MCG/ACT 1 spray in each nostril Nasally Once a day; Duration: 30 day(s) Active SUMAtriptan Succinate 100 MG 1 tablet as needed, may take second dose at least 2 hours after first dose up to 2 tablets per day as needed Orally Once a day Active Fludrocortisone Acetate 0.1 MG 2 tablets Orally daily Activ e Colace 100 MG 1 capsule as needed Orally Once a day; Duration: 30 day(s) Active Sertraline HCl 25 MG 3 tablets Orally On ce a day; Duration: 30 days Active Alendronate Sodium A ctive Vitamin B2 Active Aspir-81 Active MiraLax 17 GM 1 packet mixed with 8 ounces of fluid Orally Once a day Active Atorvastatin Calcium 40 MG 1 tablet Oral ly twice a day; Duration: 30 days Active Albuterol Sulfate HFA 108 (90 Base) MCG/ACT 1 puff as needed Inhalation every 4 hrs Active Topiramate 100 MG 1 tablet Orally twic e a day Active Magnesium Oxide 400 MG 1 tablet with kesha d Orally twice a day Active Anbesol 10 % 1 application as nee ded Mouth/Throat Four times a day Active Vitamin D3 25 MCG (1000 UT) 1 capsule Or ally Once a day; Duration: 30 day(s) Active Acetaminophen 325 MG 1 tablet as needed Orally every 4 hrs 01/22/2020 Active Melatonin 5 MG 1 tablet in the even ing Orally Once a day; Duration: 30 day(s) Active Advair Diskus 250-50 MCG/DOSE as directed Inhalation 01/22/2020 Activ e Singulair 10 MG 1 tablet Orally Once a day; Duration: 30 day(s) Active Social History Tobacco Use: Social History [...] convulsions (F44.5) Active confirmed Problem Mood disorder (84202537) Mood disorder (F39) Active confirmed Problem Seizure disorder (836583884) Seizure disorder (G40.909) Active confirmed Problem Sleep disturbance (02838040) Sleep disturbance, unspecified (G47.9) Active confirmed Vital Signs Heart Rate 64 /min 01/16/2025 Blood pressure diastolic 86 mm Hg 01/16/2025 Height 60 in 01/16/2025 Blood pressure systolic 152 mm Hg 01/16/2025 Weight 115 lbs 01/16/2025 BMI 22.46 kg/m2 01/16/2025 Procedures Procedure Date Ordered Date Performed Result Body Sit e Obtain prior medical records 01/16/2025 N/A Referral 01/16/2025 01/19/2025 N/A Encounters Encounter Location Date Provider Diagnosis [address] [address] 11/20/2024 [facility] 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 ; Sleep disturbance, unspecified G47.9 ; Seizure disorder G40.909 and Mood disorder F39 [address] [address] 01/16/2025 Falguni Madsen 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 ; Sleep disturbance, unspecified G47.9 ; Seizure disorder G40.909 ; Mood disorder F39 and Syncope and collapse R55 [address] [address] 09/02/2024 GABRIELLE BOO [address] [address] 09/29/2024 [facility], [address] [address] 12/26/2024 [facility], [address] [address] 12/26/2024 [place] [address] [place] [address] 01/16/2025 Sebastien Myrick Assessments Encounter Date Diagnosis (ICD [...] Dr. 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 We are working on setting up a consult visit with our FND specialist, Dr. Boo. Patient has done well with transition from Prozac to sertraline, although patient unsure if any improvement in mood or anxiety. We discussed option for dose increase today up to 75 mg which she was interested in. Common side effects reviewed. Will plan to follow-up again in 1 to 2 months, sooner as needed. 01/16/2025 Sleep disturbance, unspecified (ICD-10 - G47.9) 01/16/2025 Seizure disorder (ICD-10 - G40.909) 11/20/2024 Seizure disorder (ICD-10 - G40.909) 11/20/2024 Mood disorder (ICD-10 - F39) 01/16/2025 Mood disorder (ICD-10 - F39) Increase Sertraline to 75 mg (3 tablets once daily) 01/16/2025 Syncope and collapse (ICD-10 - R55) Patient with recent loss of consciousness event, likely syncopal in nature. However initial CT head in the hospital was suggestive of possible ischemic event. Subsequent CTA and MRI were normal without evidence of infarct. She is already wearing plaster block layer and has EEG ordered. Recommended echo to complete syncopal/stroke workup. She is unsure if echo has been ordered, so we will be happy to order today. She is already on aspirin 81 and atorvastatin. Advised blood pressure management as well, which she can follow-up with PCP regarding. Plan Of Treatment Pending Test Test Name Order Date Obtain prior medical records 01/16/2025 Next Appt Details Provider Name:GABRIELLE GLASS [facility], 02/18/2025 11:30:00 AM, [address] [place] [address], [phone], Provider Name:Falguni moody, 02/20/2025 11:30:00 AM, [address] [place] [address], [phone], Insurance Providers Payer Name Payer Address Payer Phone Subscriber Number Group Number Insured Name Patient Relationship to Insured Coverage Start Date Coverage End Date [facility] [address] [place] [address] [id number] Sarahy Neves Self - patient is the insured MEDICARE [address] [facility], [place] [id number] Sarahy Neves Self - patient is the insured [facility] [address] [place] [address] [id number] Sarahy Neves Self - patient is the [...]
--- OUTSIDE RECORDS SUMMARY | 2025-02-02 16:03 | XMS_ITS | Clinical Summary ---
Author Organization [facility] Address [address] [place] [address] Phone Care Team Providers Care Executive Coordinator Name Role Phone Case Duff ALUMINUM FABRICATION SUPERVISOR Primary Care Provider + Allergies Active Allergy [...] file Insurance MEDICARE PART A & B [facility] MEDIC[facility] REPLACEMENT [place] [id number] MEDICARE PART A & B [facility] MEDICARE REPLACEMENT MEDICARE PART A & B Member Subscriber Plan / Payer ( fective 2019-) Name:Pura Sarahy Villatoro Member ID:[id number] Relation to Subscriber:Self Name:Sarahy Neves Subscriber ID:[id number] Payer ID:[id number] Group ID:Not on file Type:Medicare Address: [employer] [address] [place] [phone] [facility] MEDICARE REPLACEMENT MEDICARE PART A & B Member Subscriber Plan / Payer (Ef fective 2019-Present) Name:Sarahy Neves Member ID:[id number] Relation to Subscriber:Self Name:Sarahy Neves Subscriber ID:[id number] Payer ID:[id number] Group ID:Not on file Type:Medicare Address: [employer] [address] MEDICARE REPLACEMENT [place] [id number] MEDICARE PART A & B [facility] MEDICARE REPLACEMENT MEDICARE PART A & B MEDICARE REPLACEMENT [place] [id number] MEDICARE PART A & B MEDICARE REPLACEMENT MEDICARE PART A & B [facility] SCO MEDICARE REPLACEMENT [place] [id number] MEDICARE PART A & B [facility]CO MEDICARE REPLACEMENT Advance Directives For more information, please contact: [phone] (9AM - 5PM [facility], Sunday-Sunday) Documents on File Type Date Recorded Patient Fish Header Expl anation Healthcare Proxy 02/13/2019 1:15 PM Healthcare Agents on File Name Relationship Healthcare Agent Relationship Communication Ariel Neves Brother .Primary Health Care Agent (Proxy form on file) Cierra Mojica Sister Alternate Health care Agent (Proxy form on file) Care Teams Executive Coordinator Relationship Specialty Start Date End Date Case Duff NP [facility] [place] [address] PCP - General Family Medicine 02/07/19 Additional Source Comments The information contained in this document represents components of the legal health record. It is not the complete legal health record.[facility]
--- OUTSIDE RECORDS SUMMARY | 2025-02-02 16:03 | XMS_ITS | Patient Health Record ---
Author Organization [facility] Address [address] [place] [address] Care Team Providers Care Push Button Switch Assembler Name Role Phone MANDO TAMAYO Primary Care [...] e a day Active Mag Oxide-Vit D3-Turmeric [phone] MG-UNIT-MG as directed Orally Active ProAir HFA [...] Status Risk Notes Problem Colon cancer screening (769263995) Colon cancer screening (Z12.11) Active confirmed Problem Screening for malignant neoplasm of colon (922950695) Encounter for screening for malignant neoplasm of colon (Z12.11) Active confirmed Problem Fatty liver (906890590) Fatty liver (K76.0) Active confirmed Problem 693516335 Long-term use of aspirin therapy (Z79.82) Active confirmed Problem Hepatic hemangioma (57633469) Hepatic hemangioma (D18.03) Active confirmed Vital Signs Temperature 96.9 degrees Fahrenheit 09/15/2024 Blood pressure diastolic 01 mm Hg 09/15/2024 Height 60 in 09/15/2024 Blood pressure systolic 001 mm Hg 09/15/2024 Weight 116 lbs 09/15/2024 BMI 22.65 kg/m2 09/15/2024 Encounters Encounter Location Date Provider Diagnosis [facility] Outpatient [address] [place], [place] [id number] 11/25/2024 Philippe Price Jr Colon cancer screening Z12.11 and Personal history of adenomatous and serrated colon polyps Z86.0101 [facility] [address] [place] [address] 09/15/2024 Philippe Price Jr Fatty liver K76.0 ; Hepatic hemangioma D18.03 and Encounter for screening for malignant neoplasm of colon Z12.11 [facility] [address] [place] [address] 10/08/2024 Philippe Price Jr Assessments Encounter Date [...] Insured Coverage Start Date Coverage End Date [facility] [address] [place] [id number] SWATHI BANDA Self - patient is the [...]
== END 2025-02-02 14:53 | disposition home or self-care (01) ==
LOC: HO.HPS 14:26
PROVIDERS: PCP Nurse Practitioner Family; Visit Provider Internal Medicine Pulmonary Disease
DX: J45.909 Unspecified asthma, uncomplicated (principal); Z91.09 Other allergy status, other than to drugs and biological substances
CPT/HCPCS: 99214

== ENCOUNTER → 2025-02-02 14:24 | Outpatient (BNVA) | payer OTHER, SELFPAY | PROVIDERS: PCP Nurse Practitioner Family; Visit Provider Internal Medicine Pulmonary Disease | DX: R06.02 Shortness of breath (principal); J45.909 Unspecified asthma, uncomplicated; Z91.09 Other allergy status, other than to drugs and biological substances | CPT/HCPCS: 99212 ==

== ENCOUNTER 2025-02-12 09:35 | Outpatient (REF) | payer OTHER, SELFPAY ==
--- OUTSIDE RECORDS SUMMARY | 2024-10-10 06:50 | XMS_ITS ---
Author Organization [facility] Address [address] [place] [address] Care Team Providers Care Edge Inker Name Role Phone MANDO TAMAYO Primary Care Provider Philippe Tsai Jr [phone] REASON FOR VISIT screening Encounters Encounter Location Date Provider Diagnosis [facility] [place] [address] [place] [id number] 10/10/2024 Philippe Price Jr Plan Of Treatment No Information Progress Notes * GENESISMaryam SWATHI BORJASEDOB: [birth year] (70 yo F)Acc No.[id number]:10/10/2024 COLON WITH MAC Patient: SWATHI RICHARDS Provider: Allison Price MD :1955 A ge:69 Y S ex:Female Date:10/10/2024 Address:[facility] [id number] Pcp:MANDO TAMAYO Subjective: * Chief Complaints: * [...] 10/10/2024 Generated for Printi ng/Faxing/eTransmitting on: 0 02/12/2025 10:23 AM EDT
--- OUTSIDE RECORDS SUMMARY | 2024-11-25 07:50 | XMS_ITS ---
Author Organization [facility] Address [address] [place] [address] Care Team Providers Care Peripheral Equipment Operator Name Role Phone MANDO TAMAYO Primary Care Provider Philippe Tsai Jr [phone] REASON FOR VISIT screening Encounters Encounter Location Date Provider Diagnosis [facility] [place] [address], [place] [phone] 11/25/2024 Philippe Price Jr Colon cancer screening [...] * SWATHI BANDAOB: [birth year] (70 yo F)Acc No.[id number]:11/25/2024 COLON WITH MAC Patient: Allison NOWAK DWAIN Provider: Allison Price MD :1955 A ge:69 Y S ex:Female Date:11/25/2024 Address:[address] [place], [place] [id number] Pcp:MANDO TAMAYO Subjective: * Chief Complaints: * [...] 11/25/2024 Generated for Elisa barbosa/Silas/Matiitting on: 0 02/12/2025 10:21 AM EDT
--- OUTSIDE RECORDS SUMMARY | 2025-01-08 11:30 | XMS_ITS ---
Author Organization [employer] Address [address] [facility] [address] [place] [address] Care Team Providers Care Cardiovascular Specialist Name Role Phone Case Duff Primary Care Provider UnavailSebastien Lewis Unavailable [phone] Falguni Madsen Unavailable [phone] REASON FOR VISIT pt called and she is still in [place] Medications Medication SIG (Take, Route, Frequency, Duration) [...] Active Encounters Encounter Location Date Provider Diagnosis [address] [address] 01/08/2025 Falguni Madsen Plan Of Treatment Next Appt Details Provider Name:GABRIELLE GLASS [facility], 02/18/2025 11:30:00 AM, [address] [place] [address], [phone], Provider Name:Falguni moody, 02/20/2025 11:30:00 AM, [address] [place] [address], [phone], Progress Notes * Sarahy NEVES MDOB:[birth year] (70 yo F)Acc No.[id number]:01/08/2025 Progress Note Patient: Sarahy RICHARDS Provider: Connie Madsen, RN, RETURN CLERK-C, WATER PUMP OPERATOR :1955 A ge:70 Y S ex:Female Date:01/08/2025 Address:[address] [place] [address] [id number] Pcp:Case Duff Subjective: * Chief Complaints: * 1 . pt called and she is still in [place]. 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 Patient has been out of facility for several years and has been referred back to SUPERVISOR MOLD SHOP for specialized management of FND. Patient does [...] Electronic signature of MITCH Schmitt CNP on 02/12/2025 at 10:21 AM EDT Sign off status: Pending * Provider: Connie Madsen RN, ELENA MEYER Date: 01/08/2025 Generated for Printing/Faxing/eTransmitting on: 02/12/2025 10:21 AM EDT
--- NOTE | 2025-02-12 09:38 | EEG_ITS ---
Reason: Syncope/ Collapse History: H/O conversion disorder with attacks or seizures, acute episode with psychological stressor, falls, liver lesion, concussion with loss of consciousness, SOB, dizziness, new onset of headache, myalgia, headache, dermaitis, myalgia, headache, convulsion disorder, seizures, depression- Medication: albuterol, asa, atorvastatin, vit d, clonazepam, docusate sodium, ezetimibe, fluoxetine, folic acid, levothyroxine, meclizine, melatonin, montelukast, vit B2, risedronate, setraline, topiramate This is a 16 channel EEG with an EKG lead. Patient is reported awake during the tracing. Background EEG rhythm is low amplitude fast with no obvious asymmetry or paroxysmal tendency. Photic stimulation does not produce any significant abnormality. Hyperventilation is not performed. Cardiac lead does not reveal any significant abnormality. No sharp wave spikes or paroxysmal tendency noted. Impression: Unremarkable EEG. MTDD
--- OUTSIDE RECORDS SUMMARY | 2025-02-12 10:22 | XMS_ITS | Clinical Summary ---
Author Organization [facility] ity Address [address] [place] [address] Care Team Providers Care Grain Mixer Name Role Phone Unavailable Primary Care Provider [...]
--- OUTSIDE RECORDS SUMMARY | 2025-02-12 10:24 | XMS_ITS | Patient Health Record ---
Author Organization [facility] Address [address] [place] [address] Care Team Providers Care Probation And Patrol Agent Name Role Phone MANDO TAMAYO Primary Care Provider Philippe Tsai Jr [phone] Allergies Allergen (clinical drug ingredient) Drug/Non Drug [...] e a day Active Mag Oxide-Vit D3-Turmeric [phone] MG-UNIT-MG as directed Orally Active ProAir HFA [...] Status Risk Notes Problem Colon cancer screening (368648331) Colon cancer screening (Z12.11) Active confirmed Problem Screening for malignant neoplasm of colon (096637483) Encounter for screening for malignant neoplasm of colon (Z12.11) Active confirmed Problem Fatty liver (618802342) Fatty liver (K76.0) Active confirmed Problem 217424495 Long-term use of aspirin therapy (Z79.82) Active confirmed Problem Hepatic hemangioma (06006916) Hepatic hemangioma (D18.03) Active confirmed Vital Signs Temperature 96.9 degrees Fahrenheit 09/15/2024 Blood pressure diastolic 01 mm Hg 09/15/2024 Height 60 in 09/15/2024 Blood pressure systolic 001 mm Hg 09/15/2024 Weight 116 lbs 09/15/2024 BMI 22.65 kg/m2 09/15/2024 Encounters Encounter Location Date Provider Diagnosis [facility] [address]patient [address] [place], [place] [id number] 11/25/2024 Philippe Price Jr Colon cancer screening Z12.11 and Personal history of adenomatous and serrated colon polyps Z86.0101 [facility] [address] [place] [address] 09/15/2024 Philippe Price Jr Fatty liver K76.0 ; Hepatic hemangioma D18.03 and Encounter for screening for malignant neoplasm of colon Z12.11 [facility] [address] [place] [address] 10/08/2024 Philippe Price Jr Assessments Encounter Date [...] Insured Coverage Start Date Coverage End Date [facility] [address] [place] [address] [id number] SWATHI BANDA Self - patient is the [...]
--- OUTSIDE RECORDS SUMMARY | 2025-02-12 10:24 | XMS_ITS | Clinical Summary ---
Author Organization [facility] Address [address] [place] [address] Phone Care Team Providers Care Application Security Specialist Name Role Phone Case Duff MANAGER SCIENTIFIC Primary Care Provider + Allergies Active Allergy [...] 01/05/2004 OSTEOPOROSIS SCREENING INITI AL (ONE-TIME) 2019 INFLUENZA VACCINE (#1) 2025 04/27/2021 COVID-19 VACCINE (1 - 2023-2 5 season) 2025 RSV VACCINE (1 - 1-dose 75+ series) [...] file Insurance [facility]IC[facility] & [facility] MEDICARE PART A & B [facility] MEDICARE REPLACEMENT [place] [id number] MEDICARE PART A & B [facility] MEDICARE REPLACEMENT [place] [id number] MEDICARE PART A & B O [facility]IC[facility] RE[facility] B [facility] MEDICARE REPLACEMENT MEDICARE PART A & B MEDICARE REPLACEMENT MEDICARE PART A & [place] [address] [address] MEDICARE REPLACEMENT MEDICARE PART A & B [facility] MEDICARE REPLACEMENT MEDICARE PART A & B [facility] MEDICARE REPLACEMENT Advance Directives For more information, please contact: [phone] (9AM - 5PM [facility], Sunday-Sunday) Documents on File Type Date Recorded Patient Boring Mill Set Up Operator Expl anation Healthcare Proxy 02/13/2019 1:15 PM Healthcare Agents on File Name Relationship Healthcare Agent Relationship Communication Ariel Neves Brother .Primary Health Care Agent (Proxy form on file) Cierra Mojica Sister Alternate Health care Agent (Proxy form on file) Care Teams Application Security Specialist Relationship Specialty Start Date End Date Case Duff NP [facility] [place] [address] PCP - General Family Medicine 02/07/19 Additional Source Comments The information contained in this document represents components of the legal health record. It is not the complete legal health record.[facility]
--- OUTSIDE RECORDS SUMMARY | 2025-02-12 10:24 | XMS_ITS | Patient Health Record ---
Author Organization [facility] [facility] Address [address] [place] [address] Care Team Providers Care Merchandise Deliverer Name Role Phone MadhaviCase snell Primary Care Provider UnavailSebastien Lewis Unavailable [phone] GABRIELLE BOO Unavailable [phone] Falguni Madsen Unavailable [phone] Allergies Allergen (clinical drug ingredient) Drug/Non Drug [...] Interpretation: Performing Lab: Notes/Report: MR-Brain (C-) CPT 86528 Reviewed date:01/12/2025 10:12:33 AM Interpretation: Performing Lab: [...] convulsions (F44.5) Active confirmed Problem Mood disorder (99072660) Mood disorder (F39) Active confirmed Problem Seizure disorder (715955083) Seizure disorder (G40.909) Active confirmed Problem Sleep disturbance (22560836) Sleep disturbance, unspecified (G47.9) Active confirmed Vital [...] N/A Encounters Encounter Location Date Provider Diagnosis [address] [address] 11/20/2024 [facility] 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 ; Sleep disturbance, unspecified G47.9 ; Seizure disorder G40.909 and Mood disorder F39 [address] [address] 01/16/2025 Falguni Madsen 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 Boo, and FND specialist here at [facility], has availability to also evaluate and perhaps [...] evidence of infarct. She is already wearing night clerk auditor and has EEG ordered. Recommended echo to [...] 01/16/2025 Next Appt Details Provider Name:GABRIELLE GLASS [facility], 02/18/2025 11:30:00 AM, [address] [place] [address], [phone], Provider Name:Falguni moody, 02/20/2025 11:30:00 AM, [address] [place] [address], [phone], Insurance Providers Payer Name Payer Address Payer Phone Subscriber Number Group Number Insured Name Patient Relationship to Insured Coverage Start Date Coverage End Date [facility] [address] [place] [address] [id number] Sarahy Neves Self - patient is the insured MEDICARE [address] [facility] [id number] Sarahy Neves Self - patient is the insured [facility] [address] [place] [address] [id number] Sarahy Neves Self - patient is the [...]
== END 2025-02-12 09:36 | disposition home or self-care (01) ==
LOC: HO.NEURO 09:35
PROVIDERS: PCP Nurse Practitioner Family; Visit Provider Nurse Practitioner Family
DX: R55 Syncope and collapse (principal); Z86.69 Personal history of other diseases of the nervous system and sense organs; Z79.899 Other long term (current) drug therapy
CPT/HCPCS: 95816

== ENCOUNTER → 2025-02-12 09:38 | Outpatient (BNV) | payer OTHER, SELFPAY | PROVIDERS: PCP Nurse Practitioner Family; Visit Provider Psychiatry & Neurology Neurology | DX: R55 Syncope and collapse (principal) | CPT/HCPCS: 95816 ==

== ENCOUNTER → 2025-03-04 12:15 | Outpatient (BNV) | payer OTHER, SELFPAY | PROVIDERS: PCP Nurse Practitioner Family; Visit Provider Radiology Body Imaging | DX: Z12.31 Encounter for screening mammogram for malignant neoplasm of breast (principal) | CPT/HCPCS: 77063; 77067 ==

== ENCOUNTER 2025-03-04 12:22 | Outpatient (REF) | payer OTHER, SELFPAY ==
--- OUTSIDE RECORDS SUMMARY | 2024-10-10 06:50 | XMS_ITS ---
Author Organization [facility] Address [address] [place] [address] Care Team Providers Care Photographic Press Screwmaker Name Role Phone MANDO TAMAYO Primary Care Provider Philippe Tsai Jr REASON FOR VISIT screening Encounters Encounter Location Date Provider [place] [facility] [place] [address] [place] [id number] 10/10/2024 Philippe Price Jr Plan Of Treatment No Information Progress Notes * GENESISMaryam SWATHI BORJASEDOB: [birth year] (70 yo F)Acc No.[id number]:10/10/2024 COLON WITH MAC Patient: SWATHI RICHARDS Provider: Allison Price MD :1955 A ge:69 Y S ex:Female Date:10/10/2024 Address:[facility] [id number] Pcp:MANDO TAMAYO Subjective: * Chief Complaints: * [...] 10/10/2024 Generated for Printi ng/Faxing/eTransmitting on: 0 03/04/2025 02:59 PM EDT
--- OUTSIDE RECORDS SUMMARY | 2024-11-25 07:50 | XMS_ITS ---
Author Organization [facility] Address [address] [place] [phone] Care Team Providers Care Regional Rehabilitation Director Name Role Phone MANDO TAMAYO Primary Care Provider Philippe Tsai Jr REASON FOR VISIT screening Encounters Encounter Location Date Provider Diagnosis [facility] Outpatient [address] [place] [id number] 11/25/2024 Philippe Price Jr Colon cancer screening [...] * SWATHI BANDAOB: [birth year] (70 yo F)Acc No.[id number]:11/25/2024 COLON WITH MAC Patient: Allison NOWAK DWAIN Provider: Allison Price MD :1955 A ge:69 Y S ex:Female Date:11/25/2024 Address:[address] [place], [place] [address] Pcp:MANDO TAMAYO Subjective: * Chief Complaints: * [...] 11/25/2024 Generated for Elisa barbosa/Silas/Matiitting on: 0 03/04/2025 02:59 PM EDT
--- OUTSIDE RECORDS SUMMARY | 2025-01-08 11:30 | XMS_ITS ---
Author Organization [employer] Address [address] [facility] [address] [place] [address] Care Team Providers Care Kaitara Taraka Name Role Phone Case Duff Primary Care Provider UnavailSebastien Lewis Unavailable [phone] Falguni Madsen Unavailable [phone] REASON FOR VISIT pt called and she is still in [place] Medications Medication SIG (Take, Route, Frequency, Duration) [...] Active Encounters Encounter Location Date Provider Diagnosis [address] [address] 01/08/2025 Falguni Madsen Plan Of Treatment Next Appt Details Provider Name:Falguni moody, 03/13/2025 11:00:00 AM, [address] [place] [address], [place], [address], Progress Notes * Sarahy NEVES MDOB:[birth year] (70 yo F)Acc No.[id number]:01/08/2025 Progress Note Patient: Sarahy RICHARDS Provider: Connie Madsen, RN, FUR PULLER-C, TRANSPORT ASSISTANT :1955 A ge:70 Y S ex:Female Date:01/08/2025 Address:[address] [place] [address] [id number] Pcp:Case Duff Subjective: * Chief Complaints: * 1 . pt called and she is still in [place]. 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 Patient has been out of facility for several years and has been referred back to WEAPONS SYSTEM INSTRUMENT MECHANIC for specialized management of FND. Patient does [...] Electronic signature of MITCH Schmitt CNP on 03/04/2025 at 02:58 PM EDT Sign off status: Pending * Provider: Connie Madsen RN, ELENA MEYER Date: 01/08/2025 Generated for Printing/Faxing/eTransmitting on: 03/04/2025 02:58 PM EDT
--- OUTSIDE RECORDS SUMMARY | 2025-02-20 07:30 | XMS_ITS ---
Author Organization [facility] [employer] [facility] Address [address] [place] [address] Care Team Providers Care Medical Records Secretary Name Role Phone Case Duff Primary Care Provider Sebastien Byrnes Unavailable [phone] Falguni Madsen Unavailable [phone] REASON FOR VISIT 1-2 month f/u- f/u on seizures, echocardiogram Encounters Encounter Location Date Provider Diagnosis [facility] [employer] [address] [address] 02/20/2025 Falguni Madsen Plan Of Treatment Next Appt Details Provider Name:Falguni moody, 03/13/2025 11:00:00 AM, [address] [place] [address], [phone], Progress Notes * Sarahy NEVES MDOB:[birth year] (70 yo F)Acc No.[id number]:02/20/2025 Progress Note Patient: Sarahy RICHARDS Provider: Connie Madsen RN, WAREHOUSE COORDINATOR-C, FRUIT AND VEGETABLE INSPECTOR :1955 A ge:70 Y S ex:Female Date:02/20/2025 Address:[address] [place] [address] [id number] Pcp:Case Dfuf Subjective: * Chief Complaints: * 1 . 1-2 month f/u- f/u on seizures, echocardiogram. * Medical History: Objective: * Vitals: Assessment: Plan: * Treatment: * * Electronic signature of MITCH Schmitt CNP on 03/04/2025 at 02:58 PM EDT Sign off status: Pending * Provider: Connie Madsen RN, ELENA MEYER Date: 02/20/2025 Generated for Printing/Faxing/eTransmitting on: 03/04/2025 02:58 PM EDT
--- NOTE | ~2025-03-04 | MM_ITS ---
EXAMINATION: MM SCREENING DIGITAL BREAST TOMOSYNTHESIS, BILATERAL CLINICAL INFORMATION: Screening. Asymptomatic. COMPARISON: Comparison made to multiple prior, most recent January 16, 2024, and most remote September 20, 2020. TECHNIQUE: Digital breast tomosynthesis is performed in mediolateral oblique and craniocaudal views along with computer-aided detection (CAD). Synthesized 2D images are generated from the tomosynthesis. FINDINGS: BREAST COMPOSITION: The breasts are heterogeneously dense, which may obscure small masses. BILATERAL BREASTS: No significant masses, suspicious calcifications or other abnormalities are seen in either breast. MM/MM tomosynthesis screening BI IMPRESSION: BILATERAL BREASTS: Negative, no mammographic evidence of malignancy. Normal interval follow-up is recommended in 12 months. ASSESSMENT: BI-RADS: Category 1: Negative RECOMMENDATION: Routine annual mammography screening. FOLLOW-UP: 1 year F/U This examination should not preclude the clinical evaluation of a suspicious palpable abnormality. This patient's information was entered into a reminder system with a target due date for their next mammogram. Electronically signed by: Yanira Ramirez MD 03/06/2025 06:29 PM EDT
--- OUTSIDE RECORDS SUMMARY | 2025-03-04 14:58 | XMS_ITS | Clinical Summary ---
Author Organization [facility] Address [address] [place] [address] Care Team Providers Care Camera Storage Clerk Name Role Phone Unavailable Primary Care Provider [...] 01/05/2004 Zoster Vaccines (1 of 2) 01/05/2004 Depression Screening 06/11/2024 COVID-19 Vaccine (1 - 2023-2 5 season) 2025 Influenza Vaccine (#1) 2025 RSV Immunization Adult [...]
--- OUTSIDE RECORDS SUMMARY | 2025-03-04 14:59 | XMS_ITS | Patient Health Record ---
Author Organization [facility] Address [address] [place] [address] Care Team Providers Care Toll Line Repairer Name Role Phone MadhaviCase snell Primary Care Provider UnavailSebastien Lewis Unavailable [phone] GABRIELLE BOO Unavailable [phone] Falguni Madsen Unavailable [phone] Allergies Allergen (clinical drug ingredient) Drug/Non Drug [...] Active Results Component Value Reference Range Notes MR-Brain (C-) CPT 67361 Reviewed date:01/12/2025 10:12:33 AM Interpretation: Performing Lab: Notes/Report: Echocardiogram Reviewed date:01/16/2025 01:09:52 PM Interpretation: Performing Lab: Notes/Report: Reason For Referral No Information Medications Medication SIG (Take, Route, Frequency, Duration) Notes Start Date End Date Status Acetaminophen 325 MG 1 tablet as needed Orally every 4 hrs 01/22/2020 Active Colace 100 MG 1 capsule as needed Orally Once a day; Duration: 30 day(s) Active Vitamin D3 25 MCG (1000 UT) 1 capsule Or ally Once a day; Duration: 30 day(s) Active ProAir HFA 108 (90 Base) MCG/ACT 2 puffs Inhalation every 4 hrs As needed Active Topiramate 100 MG 1 tablet Orally twic e a day Active Albuterol Sulfate (2.5 MG/3ML) 0.083% 3 mL as needed Inhalation every 6 hrs Active Singulair 10 MG 1 tablet Orally Once a day; Duration: 30 day(s) Active Atorvastatin Calcium 40 MG 1 tablet Oral ly twice a day; Duration: 30 days Active Melatonin 5 MG 1 tablet in the even ing Orally Once a day; Duration: 30 day(s) Active Levothyroxine Sodium 25 MCG 1 tablet in the morning on an empty stomach Orally Once a day; Duration: 30 days Active SUMAtriptan Succinate 100 MG 1 tablet as needed, may take second dose at least 2 hours after first dose up to 2 tablets per day as needed Orally Once a day Active Meclizine HCl 25 MG 1 tablet as needed Orally every 12 hrs Active Aspir-81 Active Alendronate Sodium A ctive Anbesol 10 % 1 application as nee ded Mouth/Throat Four times a day Active MiraLax 17 GM 1 packet mixed with 8 ounces of fluid Orally Once a day Active KlonoPIN 0.5 MG 1 tablet Orally twic e a day Active Vitamin B2 Active Albuterol Sulfate HFA 108 (90 Base) MCG/ACT 1 puff as needed Inhalation every 4 hrs Active Fludrocortisone Acetate 0.1 MG 2 tablets Orally daily Activ e Magnesium Oxide 400 MG 1 tablet with kesha d Orally twice a day Active Advair Diskus 250-50 MCG/DOSE as directed Inhalation 01/22/2020 Activ e Flonase Allergy Relief 50 MCG/ACT 1 spray in each nostril Nasally Once a day; Duration: 30 day(s) Active Sertraline HCl 25 MG 3 tablets Orally On ce a day; Duration: 30 days Active Social History Tobacco Use: Social History [...] convulsions (F44.5) Active confirmed Problem Mood disorder (28156477) Mood disorder (F39) Active confirmed Problem Seizure disorder (016010965) Seizure disorder (G40.909) Active confirmed Problem Sleep disturbance (09868350) Sleep disturbance, unspecified (G47.9) Active confirmed Problem 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 confirmed Vital Signs Heart Rate 72 /min 02/18/2025 Blood pressure diastolic 63 mm Hg 02/18/2025 Height 60 in 02/18/2025 Blood pressure systolic 111 mm Hg 02/18/2025 Weight 115 lbs 02/18/2025 BMI 22.46 kg/m2 02/18/2025 Procedures Procedure Date Ordered Date Performed Result Body Sit e Obtain prior medical records 01/16/2025 N/A Referral 01/16/2025 01/19/2025 N/A Encounters Encounter Location Date Provider Diagnosis [address] [address] 11/20/2024 Sebastien Myrick 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 ; Sleep disturbance, unspecified G47.9 ; Seizure disorder G40.909 and Mood disorder F39 [address] [address] 01/16/2025 Falguni Madsen 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 ; Sleep disturbance, unspecified G47.9 ; Seizure disorder G40.909 ; Mood disorder F39 and Syncope and collapse R55 [address] [address] 02/18/2025 GABRIELLE BOO 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 ; Sleep disturbance, unspecified G47.9 ; Seizure disorder G40.909 ; Mood disorder F39 ; Syncope and collapse R55 and Functional neurological symptom disorder with mixed symptoms F44.[address] [address] 09/02/2024 GABRIELLE BOO [facility] [address] [place] [address] 09/29/[address] [address] 12/26/2024 [facility] [address] [address] 12/26/[address] [address] 01/16/2025 [facility] Assessments Encounter Date Diagnosis (ICD Code) Assessment Notes Treatment Notes Treatment Clinical Notes Section Notes 11/20/2024 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 Information about FND again described and education provided today. Patient is recommended to continue to see her psychotherapist regularly. We will see if Dr. 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 Likely dx is FND but will follow up on this report 01/16/2025 Seizure disorder (ICD-10 - G40.909) 11/20/2024 Seizure disorder (ICD-10 - G40.909) 11/20/2024 Mood disorder (ICD-10 - F39) 01/16/2025 Mood disorder (ICD-10 - F39) Increase Sertraline to 75 mg (3 tablets once daily) 02/18/2025 Mood disorder (ICD-10 - F39) 02/18/2025 Syncope and collapse (ICD-10 - R55) she is undergoing workup for this- supervisor asbestos textile, EEG pending results. Recommended echo to complete syncopal/stroke workup. TTE ordered at last visit here, will follow up. She is already on aspirin 81 and atorvastatin. Advised blood pressure management as well, which she can follow-up with PCP regarding. 01/16/2025 Syncope and collapse (ICD-10 - R55) Patient with recent loss of consciousness event, likely syncopal in nature. However initial CT head in the hospital was suggestive of possible ischemic event. Subsequent CTA and MRI were normal without evidence of infarct. She is already wearing supervisor asbestos textile and has EEG ordered. Recommended echo to complete syncopal/stroke workup. She is unsure if echo has been ordered, so we will be happy to order today. She is already on aspirin 81 and atorvastatin. Advised blood pressure management as well, which she can follow-up with PCP regarding. 02/18/2025 Functional neurological symptom disorder with mixed symptoms (ICD-10 - F44.7) FNDhope.org Workbook that they do WITH a trained therapist- Taking Control of Your Seizures: Workbook (Treatments That Work)Part of: Treatments That Work (113 books) by aDno Arrington , Nicole Mattson, et al. Workbook patient can do ON THEIR OWN- Overcoming Functional Neurological Symptoms: A Five Areas Approach 1st Editionby Lucho Walton (Author), Pancho Pearson (Author), Yeimy Damon (Author), Dino Sherwood (Author), Gatito Crouch (Author), Jerald Arceo (Author) [place] resources- GOOD for patients and families- handouts, videos explaining the neurobio of FND https://med.[facility]/psychiatry/ patient_care/fnd.h [facility] website by Dr. Anil Joe for ALL info regarding FND and its variants- reliable resource and in numerous languages- https://www.neuros ymptoms.org/en_GB/ Reviewed her diagnosis, understanding of the diagnosis of FND, and potential treatment plans. She has a therapist that she is working well with and trusts, and would advise that she trial some of these treatments with her therapist, gave resources. Also recommend continue med management with Mamie Madsen as that can be helpful to reduce the associated symptoms but did stress that meds are not curative of FND episodes. 02/18/2025 Other Neuro I spent a total of 60 minutes on the present encounter, which includes preparing for the encounter, obtaining history, performing examination, reviewing diagnostic data, ordering medications/test ing/procedures and other care coordination, referring to and communicating with other health dog daycare provider, documenting clinical information in the record, counseling, providing instructions and answering the patient's questions. The patient understands and agrees with the plan of care outlined. This note was generated with voice recognition software. Please excuse any errors which may have been overlooked during review. Sometimes these errors may affect the content or meaning of a given sentence. If any questions, please contact the [facility] office at [phone]. Plan Of Treatment Pending Test Test Name Order Date Obtain prior medical records 01/16/2025 Records Request 02/18/2025 Next Appt Details Provider Name:Falguni Dubonilene moody, 03/13/2025 11:00:00 AM, [address] [place] [address], [address], [place], [address], Insurance Providers Payer Name Payer Address Payer Phone Subscriber Number Group Number Insured Name Patient Relationship to Insured Coverage Start Date Coverage End Date [address] [address] [phone] [id number] Sarahy Neves Self - patient is the insured MEDICARE [address] [place], [place] [id number] Sarahy Neves Self - patient is the insured [employer] [address] [facility] [address] [phone] [id number] Sarahy Neves Self - patient is the [...]
--- OUTSIDE RECORDS SUMMARY | 2025-03-04 14:59 | XMS_ITS | Patient Health Record ---
Author Organization [facility] Address [address] [place] [address] Care Team Providers Care Help Desk Manager Name Role Phone MANDO TAMAYO Primary Care [...] e a day Active Mag Oxide-Vit D3-Turmeric [phone] MG-UNIT-MG as directed Orally Active ProAir HFA [...] Status Risk Notes Problem Colon cancer screening (221834194) Colon cancer screening (Z12.11) Active confirmed Problem Screening for malignant neoplasm of colon (762492334) Encounter for screening for malignant neoplasm of colon (Z12.11) Active confirmed Problem Fatty liver (668206729) Fatty liver (K76.0) Active confirmed Problem 457666976 Long-term use of aspirin therapy (Z79.82) Active confirmed Problem Hepatic hemangioma (83198650) Hepatic hemangioma (D18.03) Active confirmed Vital Signs Temperature 96.9 degrees Fahrenheit 09/15/2024 Blood pressure diastolic 01 mm Hg 09/15/2024 Height 60 in 09/15/2024 Blood pressure systolic 001 mm Hg 09/15/2024 Weight 116 lbs 09/15/2024 BMI 22.65 kg/m2 09/15/2024 Encounters Encounter Location Date Provider Diagnosis [facility] Outpatient [address] [place] [id number] 11/25/2024 Philippe Price Jr Colon cancer screening Z12.11 and Personal history of adenomatous and serrated colon polyps Z86.0101 [facility] [address] [place] [address] 09/15/2024 Philippe Price Jr Fatty liver K76.0 ; Hepatic hemangioma D18.03 and Encounter for screening for malignant neoplasm of colon Z12.11 [facility] [address] [place] [address] 10/08/2024 Philippe Price Jr Assessments Encounter Date [...] Insured Coverage Start Date Coverage End Date [facility] [address] [place] [address] [id number] SWATHI BANDA Self - patient is the [...]
--- OUTSIDE RECORDS SUMMARY | 2025-03-04 14:59 | XMS_ITS | Clinical Summary ---
Author Organization [facility] Address [address] [place] [address] Phone Care Team Providers Care Canvas Shrinker Name Role Phone Case Duff WIRE INSERTER Primary Care Provider + Allergies Active Allergy [...] file Insurance MEDICARE PART A & B [facility] MEDICARE REPLACEMENT MEDICARE PART A & B [facility] MEDICARE REPLACEMENT [place] [id number] MEDICARE PART A & B [facility] MEDICARE REPLACEMENT RE[place] [id number] MEDICARE PART A & B O MEDICARE REPLACEMENT [facility] MEDICARE PART A & B 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 [address] PCP - General Family Medicine 02/07/19 Additional Source Comments The information contained in this document represents components of the legal health record. It is not the complete legal health record.[facility]
--- OUTSIDE RECORDS SUMMARY | 2025-04-11 20:00 | XMS_ITS | Clinical Summary ---
Author Organization Unknown Care Team Providers Care Computer Forwarding System Markup Clerk Name Role Phone RONI ALVARADO, MANDO Unavailable Unavailable RIZWANA AQUINO, FRED Unavailable Unavailable Payers Payer Name Policy Type Policy Number Effective Date Expira tion Date [facility] [id number] MEDICAID [facility] [id number] MEDICARE - [facility] [id number] Problems Condition Name Condition Details Condition Category [...] mg chewable tablet 12-14 00:00: 00 Yes [id number] 1 tablet DAILY 1 tablet DAILY (route: oral) Med Classific ation: Hematolog ical Agents atorvastati n 80 mg tablet 12-14 00:00: 00 Yes [id number] 1 tablet BEDTIME 1 tablet BEDTIME (route: oral) Med Classific ation: Cardiovas cular Therapy Agents cetirizine 10 mg tablet 12-14 00:00: 00 Yes [id number] 1 tablet DAILY 1 tablet DAILY (route: oral) Med Classific ation: Respirato ry Therapy Agents clonazepam 0.5 mg tablet 12-14 00:00: 00 Yes [id number] PRN FOR ANXIETY/MINH TATiON 1 tablet 2 TIMES DAILY 1 tablet 2 TIMES DAILY (route: oral) Med Classific ation: Central Nervous System Agents docusate sodium 100 mg capsule 12-14 00:00: 00 Yes [id number] 1 capsule BEDTIME 1 capsule BEDTIME (route: oral) Med Classific ation: Gastroint estinal Therapy Agents ezetimibe 10 mg tablet 12-14 00:00: 00 Yes [id number] 1 tablet DAILY 1 tablet DAILY (route: oral) Med Classific ation: Cardiovas cular Therapy Agents fludrocorti sone 0.1 mg tablet 12-14 00:00: 00 Yes [id number] 1 tablet DAILY 1 tablet DAILY (route: oral) Med Classific ation: Endocrine folic acid 800 mcg tablet 12-14 00:00: 00 Yes [id number] 1 tablet DAILY 1 tablet DAILY (route: oral) Med Classific ation: Electroly te Balance-N utritiona l Products levothyroxi ne 25 mcg tablet 12-14 00:00: 00 Yes [id number] 1 tablet DAILY 1 tablet DAILY (route: oral) Med Classific ation: Endocrine magnesium 400 mg (as magnesium oxide) tablet 12-14 00:00: 00 Yes [id number] 1 tablet BEDTIME 1 tablet BEDTIME (route: oral) Med Classific ation: Electroly te Balance-N utritiona l Products melatonin 10 mg tablet 12-14 00:00: 00 Yes [id number] 1 tablet BEDTIME 1 tablet BEDTIME (route: oral) Med Classific ation: Central Nervous System Agents montelukast 10 mg tablet 12-14 00:00: 00 Yes [id number] 1 tablet BEDTIME 1 tablet BEDTIME (route: oral) Med Classific ation: Respirato ry Therapy Agents sertraline 25 mg tablet 12-14 00:00: 00 01-19 23:59 :00 No [id number] 2 tablet DAILY 2 tablet DAILY (route: oral) Med Classific ation: Central Nervous System Agents sumatriptan 100 mg tablet 12-14 00:00: 00 Yes [id number] 1 tablet DAILY 1 tablet DAILY (route: oral) Med Classific ation: Central Nervous System Agents topiramate 100 mg tablet 12-14 00:00: 00 Yes [id number] 1 tablet 2 TIMES DAILY 1 tablet 2 TIMES DAILY (route: oral) Med Classific ation: Central Nervous System Agents sertraline 25 mg tablet 8-11 00:00: 00 Yes [id number] 3 tablet EVERY AM 3 tablet EVERY AM (route: oral) Med Classific ation: Central Nervous System Agents memantine 7 mg capsule sprinkle,ex tended release 24hr 9-04 00:00: 00 02-16 23:59 :00 No [id number] 1 capsule DAILY 1 capsule DAILY (route: oral) Med Classific ation: Cognitive Disorder Therapy fluticasone propionate 50 mcg/actuati on nasal spray,suspe nsion 9-08 00:00: 00 Yes [id number] 1 spray DAILY 1 spray DAILY (route: nasal) Med Classific ation: Respirato ry Therapy Agents memantine 14 mg capsule sprinkle,ex tended release 24hr 02-16 00:00: 00 Yes [id number] 1 capsule DAILY 1 capsule DAILY (route: oral) Med Classific ation: Cognitive Disorder Therapy Vital Signs Vital Name Observation Time Observation Value Commen ts Pulse 2025-03-02 13:17:00.000 78 /min Pulse 2025-02-23 09:48:00.000 71 /min Pulse 2025-02-16 10:08:00.000 76 /min Pulse 2025-02-13 09:55:00.000 82 /min O2 Saturation (%) 2025-03-02 13:17:00.000 95 % O2 Saturation (%) 2025-02-23 09:48:00.000 99 % O2 Saturation (%) 2025-02-16 10:08:00.000 97 % O2 Saturation (%) 2025-02-13 09:55:00.000 97 % Respirations 2025-03-02 13:17:00.000 20 /min Respirations 2025-02-23 [...] AWARENESS FOR SAFETY AND WILL NOTIFY CLINICAL STEEL DIVISION SUPERVISOR AND PHYSICIAN/PROVIDER WITH ANY CHANGE IN CONDITION. [code = SKILLED NURSE WILL MAINTAIN SITUATIONAL AWARENESS FOR SAFETY AND WILL NOTIFY CLINICAL STEEL DIVISION SUPERVISOR AND PHYSICIAN/PROVIDER WITH ANY CHANGE IN CONDITION.] [...] CARE WILL BE ESTABLISHED THAT MEETS PATIENT'S SHELTER NEEDS AND INCLUDES PATIENT GOAL FOR HOME [...] End Date/Time Encounter Type Admission Type Attending [facility] Care Department Encounter ID Discharge Date Discharge Status Discharge Condition Discharge Reason Percent Goals Met 2025-02-12 00:00:00 2025-04-12 00:00:00 Outpatient RECERTFRED [facility] [id number] 90.91
== END 2025-03-04 12:23 | disposition home or self-care (01) ==
LOC: HO.MAMMO 12:22
PROVIDERS: PCP Nurse Practitioner Family; Visit Provider Nurse Practitioner Family
DX: Z12.31 Encounter for screening mammogram for malignant neoplasm of breast (principal)
CPT/HCPCS: 77063; 77067

== ENCOUNTER 2025-03-04 13:00 | Outpatient (REF) | payer OTHER, SELFPAY ==
[2025-03-04 13:21] LABS: MANUAL DIFF FLAG NO
[2025-03-04 13:41] LABS: Hematocrit 42.2 % (37.0-47.0); Hemoglobin 13.2 g/dl (12.0-16.0); Imm Gran Abs Auto 0.03 X10*3/uL (0.00-0.03); Imm Gran Pct Auto 0.6 % (0.0-0.4); Lymphocytes Absolute Auto 1.6 X10*3/uL (1.2-4.9); Mean Corpuscular HGB Conc 31.3 g/dl (31.0-35.0); Mean Corpuscular Hemoglobin 29.7 pg (27.0-33.0); Mean Corpuscular Volume 95.0 fL (80.0-98.0); NRBC Abs Auto 0.000 X10*3/uL (0.0-0.012); NRBC Pct Auto 0.0 /100WBC (0.0-0.2); Platelet Count 313 X10*3/uL (160-400); Red Blood Count 4.44 X10*6/uL (4.20-5.50); White Blood Count 5.0 X10*3/uL (4.8-10.8)
[2025-03-04 14:30] LABS: Appearance Urine Clear; Glucose Urine UA Negative (Negative); PH 7.0 (5.0-9.0); Specific Gravity - Urine <= 1.005 (1.005-1.025)
[2025-03-04 14:32] LABS: Alanine Aminotransferase 24 U/L (0-31); Albumin Level 4.3 g/dL (3.5-5.0); Alkaline Phosphatase 76 U/L (39-117); Anion Gap 9 (12-20); Aspartate Amino Transferase 37 U/L (5-31); Blood Urea Nitrogen 13 mg/dL (9-16); Calcium 8.9 mg/dL (8.4-10.2); Carbon Dioxide 24 mmol/L (22-29); Chloride 109 mmol/L (96-108); Cholesterol 178 mg/dL (<200); Estimated Glomerular Filt Rate > 60; HDL Cholesterol 85 mg/dL (>40); Potassium 4.0 mmol/L (3.3-5.1); Sodium 138 mmol/L (135-145); Total Protein 7.0 g/dL (6.5-8.0); Triglycerides 40 mg/dL (<150)
[2025-03-04 14:53] LABS: Folate > 20.0 ng/mL (> or = 4.0); Vitamin B12 663 pg/mL (200-900)
== END 2025-03-04 13:01 | disposition home or self-care (01) ==
LOC: HO.LAB 13:00
PROVIDERS: PCP Nurse Practitioner Family; Visit Provider Nurse Practitioner Family
DX: Z00.01 Encounter for general adult medical examination with abnormal findings (principal); Z13.29 Encounter for screening for other suspected endocrine disorder; Z13.6 Encounter for screening for cardiovascular disorders; E55.9 Vitamin D deficiency, unspecified; E53.8 Deficiency of other specified B group vitamins
CPT/HCPCS: 36415; 80053; 80061; 81003; 82306; 82607; 82746; 84443; 85025

== ENCOUNTER 2025-03-04 14:16 | Emergency (ER) | payer OTHER, SELFPAY ==
[2025-03-04 14:28] VITALS: BP 159/44; PULSE 66; RESP 14; TEMP 36.5; O2SAT 100; BMI 22.5
--- NOTE | 2025-03-04 15:07 | ED_ITS ---
HPI - General Adult General Chief complaint: Wound/Laceration Stated complaint: near syncope Time Seen by Provider: 03/04/25 15:07 Source: patient Mode of arrival: wheelchair Limitations: no limitations History of Present Illness ED Provider: Odalis Contreras PA-C HPI narrative: Patient is a 70 year old assigned female at with a history of functional neurological disorder, migraines, and syncope / collapse presenting to the emergency department today after a near syncopal episode. Patient states that she was here for testing, including fasting lab work, when she got lightheaded and nearly fainted. Patient states that [facility] staff was near by, and assisted the patient down to the ground and in that process - her right forearm got scarped. Patient denies any complaints at this time - stating that she feels much better. Related Data Home Medications ?Medication ?Instructions ?Recorded ?Confirmed aspirin 81 mg tablet,delayed 81 mg PO DAILY 07/05/20 0 01/15/25 release (Adult Low Dose Aspirin) atorvastatin 80 mg tablet 80 mg PO BEDTIME 12/08/24 docusate sodium 100 mg capsule 100 mg PO BEDTIME 12/0801/15/25 melatonin 10 mg tablet 10 mg PO BEDTIME 12/08/24 risedronate 35 mg tablet 35 mg PO MCKEE@0900 12/08/24 sertraline 25 mg tablet 50 mg PO DAILY 12/08/2401/02 Previous Rx's ?Medication ?Instructions ?Recorded albuterol sulfate 2.5 mg/3 mL 2.5 mg (3 mL) inhalation QID PRN 02/09/22 (0.083 %) solution for nebulization shortness of breat h or wheezing 90 days #180 mL [facility]-Mobile unit #1 ea 10/30/22 oxymetazoline 0.05 % nasal spray 2 spray intranasal Q1 2H PRN nasal 10/19/23 (Afrin (oxymetazoline)) congestion 3 days #15 mL ezetimibe 10 mg tablet 10 mg PO DAILY #90 tabs 01/09 12/02 albuterol sulfate 90 mcg/actuation 2 puff PO Q6H PRN f or wheezing 04/14/24 aerosol inhaler #6.7 grams cetirizine 10 mg tablet (All Day 10 mg PO DAILY PRN al lergy 05/17/24 Allergy (cetirizine)) symptoms 30 days #30 tabs folic acid 800 mcg tablet 0.8 mg PO DAILY #90 tabs 09/02 fluticasone propionate 50 1 spray intranasal DAILY 90 days 10/18/24 mcg/actuation nasal #48 grams spray,suspension cholecalciferol (vitamin D3) 50 50 mcg PO DAILY 90 day s #90 caps 11/14/24 mcg (2,000 unit) capsule magnesium oxide 400 mg (241.3 mg 400 mg PO BEDTIME kirill rrhea 90 days 12/24/24 magnesium) tablet #90 tabs fludrocortisone 0.1 mg tablet 0.1 mg PO DAILY for bloo d pressure 12/25/24 90 days #90 tabs meclizine 25 mg tablet 25 mg PO DAILY PRN dizziness #20 12/25/24 tabs clonazepam 0.5 mg tablet 0.5 mg PO BID anxiety/agitat ion 30 01/15/25 days #60 tabs fluticasone 250 mcg-salmeterol 50 1 ea PO BID #180 ea 02/12/25 mcg/dose blistr powdr for inhalation (Wixela Inhub) levothyroxine 25 mcg tablet 25 mcg PO DAILY #90 tabs 0 02/12/25 riboflavin (vitamin B2) 400 mg 400 mg PO DAILY 90 days #90 tabs 02/15/25 tablet sumatriptan succinate 100 mg tablet 100 mg PO Q2H PRN Migraine 02/20/25 Headache 30 days #12 tabs montelukast 10 mg tablet 10 mg PO DAILY #90 tabs 02/09 11/02 topiramate 100 mg tablet 100 mg PO BID 90 days #180 t abs 02/24/25 memantine 21 mg capsule 21 mg PO DAILY 30 days #30 e a 03/03/25 sprinkle,extended release 24hr Allergies Allergy/AdvReac Type Severity Reaction Status Date / Time Penicillins (PENICILLINS) Allergy Intermediate HIVES Verified 03/04/25 14:31 carbamazepine (From Tegretol) Allergy Mild HIVES Verified 03/04/25 14:31 diflunisal (From Dolobid) Allergy Mild HIVES Verified 03/04/25 14:31 erythromycin base (From Allergy Mild HIVES Verified 03/04/25 14:31 Edwin-Tab) phenytoin (From Dilantin) Allergy Mild RASH,HIVES Verified 03/04/25 14:31 piroxicam (From Feldene) Allergy Mild HIVES Verified 03/04/25 14:31 sulfamethoxazole (From Allergy Mild HIVES Verified 03/04/25 14:31 Bactrim) trimethoprim (From Bactrim) Allergy Mild HIVES Verified 03/04/25 14:31 valproic acid (From Depakene) Allergy Mild HIVES Verified 03/04/25 14:31 Depakene Allergy Unknown Rash Verified 03/04/25 14:31 hydrochlorothiazide Allergy Unknown rash Verified 03/04/25 14:31 (HYDROCHLOROTHIAZIDE) lisinopril (LISINOPRIL) Allergy Unknown rash Verified 03/04/25 14:31 galcanezumab-gnlm (From Allergy headaches Verified 03/04/25 14:31 Emgality Pen) codeine (Codeine) AdvReac Intermediate NAUSEA & Verified 03/04/25 14:31 VOMITING rash doxycycline AdvReac Stomach Verified 03/04/25 14:31 Upset ENVIRONMENTAL Allergy Intermediate ASTHMA,LOSES Uncoded 03/04/25 14:31 VOICE TAPE,PLASTIC Allergy Intermediate RASH Uncoded 03/04/25 14:31 surgical tape Allergy Unknown unknown Uncoded 03/04/25 14:31 Review of Systems 2 Constitutional: Constitutional: Reports as per HPI Eyes: Eyes: Reports as per HPI ENT: Reports as per HPI Cardiovascular: Cardiovascular: Reports as per HPI Respiratory: Respiratory: Reports as per HPI Gastrointestinal: Gastrointestinal: Reports as per HPI Genitourinary: Genitourinary: Reports as per HPI Musculoskeletal: Musculoskeletal: Reports as per HPI Integumentary/Breasts: Skin/Breast: Reports as per HPI Neurologic: Reports as per HPI Psychiatric: Psychiatric: Reports as per HPI Endocrine: Endocrine: Reports as per HPI Hematologic/Lymphatic: Hematologic/Lymphatic: Reports as per HPI Allergic/Immunologic: Allergic/Immunologic: Reports as per HPI PMF Past Medical History Attestation statement: The following information was validated with the patient. Source: old records reviewed and nursing notes reviewed Medical History Osteopenia Conversion disorder with attacks or seizures, acute episode, with psychological stressor Falls Anesthesia complication Liver lesion Ingrown toenail Elevated liver enzymes Concussion with loss of consciousness SOB (shortness of breath) Pain of both earlobes Dizziness New onset headache Otitis externa of both ears Acute effusion of right ear Dermatitis Myalgia Headache REM sleep behavior disorder Convulsion disorder COVID-19 Pre-syncope Dyspnea Chest pain Pneumonia Osteoporosis Screening for osteoporosis CKD (chronic kidney disease) Dyslipidemia Hypothyroid Hyperlipemia Ataxic gait Seizures Asthma Depression Conversion disorder HTN (hypertension) Muscle weakness Hypothyroid Surgical History H/O colonoscopy History of right knee surgery History of lobectomy of thyroid History of arthroscopy of right knee History of ankle surgery History of arthroscopy of left knee History of hysterectomy Family History Family History Father CVD (cardiovascular disease) Stomach ulcer Cardiac arrest H/O heart bypass surgery Mother History of heart attack CHF (congestive heart failure) Lung cancer Diabetes mellitus High cholesterol HTN (hypertension) Hypothyroidism Sister Lung cancer Substance use disorder Brother Colitis Sister No problems noted. Sister Obstetric pulmonary blood clot embolism, antepartum Paternal Aunt Mental health disorder Substance use disorder Maternal Grandmother Mental health disorder Family/Other Substance use disorder Social History Social History Household Members: Family Household Members Other:: brother, 2 cats Housing: House Are you a primary care process manager to a significant other at home: No Do you presently have visiting nurse or other home services: No Alcohol intake: never Patient Tobacco Use Status: Never used Tobacco Smoked in Last 30 Days: No e-Cigarette/Vaping Use: Never Used Second Hand Smoke Exposure: No Use of substances other than those prescribed or required for medical reasons: No Advance Directives: No Advance Directives Information Provided: Yes Do you have a plan to hurt others: No Plan service: No Current occupational status: disabled Cognitive needs: No Hearing needs: No Vision needs: No Physical Exam ED Vital Signs: Vital Signs - 24 hr 03/04/25 14:28 03/04/25 15:32 Temperature 97.7 F 97.7 F Pulse Rate 66 66 Respiratory Rate 14 14 Blood Pressure 159/44 H 159/44 H Pulse Oximetry 100 100 Oxygen Delivery Method Room Air Room Air BMI result Body Mass Index 22.5 Const General: cooperative, no acute distress, alert and awake Nutritional Appearance: well nourished Orientation/consciousness: patient oriented x3 HENMT Head: Yes normal to inspection and Yes atraumatic Ears: hearing grossly normal bilaterally and external ears normal General nose exam: Normal external nose present, no nasal discharge noted and no epistaxis Face and sinus: Yes normal facial exam, No abrasion and No laceration Mouth: Normal oral and palatal mucosa present, no drooling and no muffled voice Eyes General: appearance normal, both eyes and all related structures Periorbital: periorbital findings normal Eyelids: Yes eyelids normal Conjunctivae: conjunctivae normal Pupils: Equal, round and reactive pupils present EOM: EOMs intact bilaterally Neck Neck: Yes normal visual inspection and Yes full ROM Resp Effort & Inspection: normal respiratory effort and able to speak in complete sentences Neuro General: patient oriented x3, moves all extremities and CN's II-XI intact bilaterally Cranial nerves: Yes Equal, round and reactive pupils present Cognition (Neuro): normal cognition Extrem Other: General: Yes full ROM and Yes capillary refill normal Psych Appearance: grossly normal Mental Status: mental status grossly normal Affect: normal affect Attitude: cooperative Thought process: Normal thought process present Thought content: Normal thought content present Insight: Good insight present (Psych) Medical Decision Making Medical Decision Making MDM Narrative: Patient is a 70 year old assigned female at with a history of functional neurological disorder, migraines, and syncope / collapse presenting to the emergency department today after a near syncopal episode. Patient's physical exam was as noted in the physical exam portion of this note. Patient declined having a work up done including any labs, EKG, or imaging. I explained my physical exam findings to the patient. I answered all questions asked by the patient. Patient's right forearm skin tear was dressed with a non-stick dressing, without incident. I stressed the importance of the patient taking her medication as directed (either prescribed or as the over the counter packaging recommends). I stressed the importance of the patient following up with her primary care provider. I stressed the importance of the patient returning to the emergency department immediately if her symptoms were to worsen or if she were to develop any dizziness, shortness of breath, difficulty breathing, chest pain, blurry vision, loss of vision, nausea, vomiting, abdominal pain, fever, chills, back pain, or any other complaints. Patient verbalized agreement and understanding with this treatment plan and discharge. Differential Diagnosis Differential Diagnoses: The differential diagnosis associated with the presentation includes Near syncope Skin tear Admission/Observation Consideration of admission/observation: Escalation of care including admission/observation considered Patient would have been admitted to the hospital had her clinical presentation warranted hospital admission. Discharge Plan Discharge Clinical Impression: Near syncope, Skin tear of forearm without complication Patient Disposition: Home, Self-Care Instructions: Near Syncope (ED), Skin Tear (ED) Additional Instructions: IF you are prescribed home medications and/or you are taking over the counter medications at home - it is very important you continue to do so as prescribed / directed unless told otherwise. Follow up with your primary care provider. Return to the emergency department immediately if your symptoms worsen or if you develop any numbness, tingling, dizziness, shortness of breath, difficulty breathing, chest pain, blurry vision, loss of vision, nausea, vomiting, abdominal pain, fever, chills, back pain, or any other complaints. Please see the information below about our Patient Portal. If you are not yet enrolled in the [facility] Patient Portal, you will receive an enrollment email invitation following your visit to any [facility] setting. You may also self-enroll in the Patient Portal by visiting our website: [email or web address] The following information is required to access the Patient Portal: - Your [facility] Medical Record Number - Your personal home email address (must match what is in your electronic medical record, Registration staff can assist with this) - Name - Date of Capabilities of the Patient Portal: - Message some providers - View upcoming appointments - Access your health summary, medical history, and visit history - View current conditions and allergies - View procedure and lab results - View your medications, including guidelines, side effects, and precautions - Complete pre-appointment questionnaires requested by your provider - Ready summary reports of your office visits and procedures To access the Patient Portal Mobile Marie, follow these directions: - Search [email or web address] in the Marie Store or Socogame Store - Download the Marie - Search for [facility] - Enter your login/password Prescriptions: No Action (DME) [facility]Mobile unit See Rx Instructions .Route .MEDSUPPLY Qty: 1 0RF Rx Instructions: As directed ezetimibe 10 mg tablet 10 mg PO DAILY Qty: 90 1RF albuterol sulfate 90 mcg/actuation HFA aerosol inhaler 2 puff PO Q6H PRN (Reason: for wheezing) Qty: 6.7 0RF folic acid 800 mcg tablet 0.8 mg PO DAILY Qty: 90 1RF fluticasone propionate 50 mcg/actuation spray,suspension 1 spray intranasal DAILY 90 Days Qty: 48 1RF Rx Instructions: administer into each nostril cholecalciferol (vitamin D3) 50 mcg (2,000 unit) capsule 50 mcg PO DAILY 90 Days Qty: 90 1RF magnesium oxide 400 mg (241.3 mg magnesium) tablet 400 mg PO BEDTIME 90 Days Qty: 90 3RF meclizine 25 mg tablet 25 mg PO DAILY PRN (Reason: dizziness) Qty: 20 0RF clonazepam 0.5 mg tablet 0.5 mg PO BID 30 Days Qty: 60 3RF fluticasone propion-salmeterol [Wixela Inhub] 250-50 mcg/dose blister with device 1 ea PO BID Qty: 180 0RF levothyroxine 25 mcg tablet 25 mcg PO DAILY Qty: 90 0RF riboflavin (vitamin B2) 400 mg tablet 400 mg PO DAILY 90 Days Qty: 90 3RF sumatriptan succinate 100 mg tablet 100 mg PO Q2H PRN (Reason: Migraine Headache) 30 Days Qty: 12 3RF Rx Instructions: Max 2 tabs per day or 4 tabs per week. montelukast 10 mg tablet 10 mg PO DAILY Qty: 90 1RF topiramate 100 mg tablet 100 mg PO BID 90 Days Qty: 180 1RF memantine 21 mg capsule,sprinkle,ER 24hr 21 mg PO DAILY 30 Days Qty: 30 0RF Rx Instructions: Then stop and increase the dose to 28 mg daily atorvastatin 80 mg tablet 80 mg PO BEDTIME risedronate 35 mg tablet 35 mg PO MCKEE@0900 sertraline 25 mg tablet 50 mg PO DAILY docusate sodium 100 mg Capsule 100 mg PO BEDTIME melatonin 10 mg Tablet 10 mg PO BEDTIME aspirin [Adult Low Dose Aspirin] 81 mg tablet,delayed release (DR/EC) 81 mg PO DAILY albuterol sulfate 2.5 mg /3 mL (0.083 %) solution for nebulization 2.5 mg inhalation QID PRN (Reason: shortness of breath or wheezing) 90 Days Qty: 180 0RF Rx Instructions: for neb oxymetazoline [Afrin (oxymetazoline)] 0.05 % spray,non-aerosol 2 spray intranasal Q12H PRN (Reason: nasal congestion) 3 Days Qty: 15 0RF cetirizine [All Day Allergy (cetirizine)] 10 mg tablet 10 mg PO DAILY PRN (Reason: allergy symptoms) 30 Days Qty: 30 0RF fludrocortisone 0.1 mg tablet 0.1 mg PO DAILY 90 Days Qty: 90 1RF Referrals: Case Duff, BODY FINISHER-BC [Primary Care Provider, Internal Medicine] Interventions: ED Discharge Assessment Last Done: 03/04/25 15:32 Discharge Date/Time: 03/04/25 15:33 Print Language: Mongolian
[2025-03-04 15:32] VITALS: BP 159/44; PULSE 66; RESP 14; TEMP 36.5; O2SAT 100
== END 2025-03-04 15:33 | disposition home or self-care (01) ==
PROVIDERS: Emergency Provider Emergency Medicine; PCP Nurse Practitioner Family
DX: R55 Syncope and collapse (principal); S51.811A Laceration without foreign body of right forearm, initial encounter; M81.0 Age-related osteoporosis without current pathological fracture; I10 Essential (primary) hypertension; N18.9 Chronic kidney disease, unspecified; X58.XXXA Exposure to other specified factors, initial encounter; Y93.89 Activity, other specified; Y92.238 Other place in hospital as the place of occurrence of the external cause; Y99.8 Other external cause status
CPT/HCPCS: 99283; 99284

== ENCOUNTER 2025-03-07 09:16 | Outpatient (AMB) | payer OTHER, SELFPAY ==
--- OUTSIDE RECORDS SUMMARY | 2024-10-10 06:50 | XMS_ITS ---
Author Organization [facility] Address [address] [place] [address] Care Team Providers Care Irrigationist Name Role Phone MANDO TAMAYO Primary Care Provider Philippe Tsai Jr REASON FOR VISIT screening Encounters Encounter Location Date Provider Diagnosis [facility] [place] [address] [place] [id number] 10/10/2024 Philippe Price Jr Plan Of Treatment No Information Progress Notes * GENESISMaryam SWATHI BORJASFARHADOB: [birth year] (70 yo F)Acc No.[id number]:10/10/2024 COLON WITH MAC Patient: SWATHI RICHARDS Provider: Allison Price MD :1955 A ge:69 Y S ex:Female Date:10/10/2024 Address:[facility] [id number] Pcp:MANDO TAMAYO Subjective: * Chief Complaints: * [...] 10/10/2024 Generated for Printi ng/Faxing/eTransmitting on: 0 03/07/2025 09:19 AM EDT
--- OUTSIDE RECORDS SUMMARY | 2024-11-25 07:50 | XMS_ITS ---
Author Organization [facility] Address [address] [place] [address] Care Team Providers Care Aviation Consultant Name Role Phone MANDO TAMAYO Primary Care Provider Philippe Tsai Jr [phone] REASON FOR VISIT screening Encounters Encounter Location Date Provider Diagnosis [facility] [place] Out[place] [address] [place] [id number] 11/25/2024 Philippe Price Jr Colon cancer screening [...] * SWATHI BANDAOB: [birth year] (70 yo F)Acc No.[id number]:11/25/2024 COLON WITH MAC Patient: Allison NOWAK DWAIN Provider: Allison Price MD :1955 A ge:69 Y S ex:Female Date:11/25/2024 Address:[address] [place], [place] [address] Pcp:MANDO TAMAYO Subjective: * Chief Complaints: * [...] 11/25/2024 Generated for Elisa barbosa/Silas/Matiitting on: 0 03/07/2025 09:18 AM EDT
--- OUTSIDE RECORDS SUMMARY | 2025-01-08 11:30 | XMS_ITS ---
Author Organization [employer] Address [address] [facility] [address] [place] [address] Care Team Providers Care Food Service Manager Name Role Phone Case Duff Primary Care Provider UnavailSebastien Lewis Unavailable [phone] Falguni Madsen Unavailable [phone] REASON FOR VISIT pt called and she is still in [place] Medications Medication SIG (Take, Route, Frequency, Duration) [...] Active Encounters Encounter Location Date Provider Diagnosis [address] [address] 01/08/2025 Falguni Madsen Plan Of Treatment Next Appt Details Provider Name:Falguni moody, 03/13/2025 11:00:00 AM, [address] [place] [address], [place], [address], Progress Notes * Sarahy NEVES MDOB:[birth year] (70 yo F)Acc No.[id number]:01/08/2025 Progress Note Patient: Sarahy RICHARDS Provider: Connie Madsen, RN, PUBLIC RELATIONS SALES MARKETING-C, PRIMARY EDUCATION PROFESSOR :1955 A ge:70 Y S ex:Female Date:01/08/2025 Address:[address] [place] [address] [id number] Pcp:Case Duff Subjective: * Chief Complaints: * 1 . pt called and she is still in [place]. 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 Patient has been out of facility for several years and has been referred back to DIRECTOR OF PHOTOGRAPHY for specialized management of FND. Patient does [...] Electronic signature of MITCH Schmitt CNP on 03/07/2025 at 09:18 AM EDT Sign off status: Pending * Provider: Connie Madsen RN, ELENA MEYER Date: 01/08/2025 Generated for Printing/Faxing/eTransmitting on: 0 03/07/2025 09:18 AM EDT
--- OUTSIDE RECORDS SUMMARY | 2025-02-20 07:30 | XMS_ITS ---
Author Organization [facility] [employer] [facility] Address [address] [place] [address] Care Team Providers Care Dinkey Locomotive Engineer Name Role Phone Case Duff Primary Care Provider Sebastien Byrnes Unavailable [phone] Falguni Madsen Unavailable [phone] REASON FOR VISIT 1-2 month f/u- f/u on seizures, echocardiogram Encounters Encounter Location Date Provider Diagnosis [facility] [employer] [address] [address] 02/20/2025 Falguni Madsen Plan Of Treatment Next Appt Details Provider Name:Falguni moody, 03/13/2025 11:00:00 AM, [address] [place] [address], [phone], Progress Notes * Sarahy NEVES MDOB:[birth year] (70 yo F)Acc No.[id number]:02/20/2025 Progress Note Patient: Sarahy RICHARDS Provider: Connie Madsen RN, SPECIALTY TRIMMER-C, SHORT ORDER FRY COOK :1955 A ge:70 Y S ex:Female Date:02/20/2025 Address:[address] [place] [address] [id number] Pcp:Case Duff Subjective: * Chief Complaints: * 1 . 1-2 month f/u- f/u on seizures, echocardiogram. * Medical History: Objective: * Vitals: Assessment: Plan: * Treatment: * * Electronic signature of MITCH Schmitt CNP on 03/07/2025 at 09:18 AM EDT Sign off status: Pending * Provider: Connie Madsen RN, ELENA MEYER Date: 02/20/2025 Generated for Printing/Faxing/eTransmitting on: 03/07/2025 09:18 AM EDT
--- NOTE | 2025-03-07 09:17 | AM.OFFWIN_ITS ---
Intake Vital Signs 03/07/25 09:32 Height 5 ft BP 122/74 Blood Pressure Location Lt brachial Position Sitting Pulse 72 Pulse Source Pulse Oximeter Temp 98.0 F Temp Source Oral Pulse Oximetry (%) 96 Oxygen Delivery Method Room Air Intake Visit Reasons: EP Wound on arm Patient Tobacco Use Status: Never used Tobacco Allergies Penicillins (PENICILLINS) Allergy (Intermediate, Verified 03/07/25 09:33) HIVES carbamazepine (From Tegretol) Allergy (Mild, Verified 03/07/25 09:33) HIVES diflunisal (From Dolobid) Allergy (Mild, Verified 03/07/25 09:33) HIVES erythromycin base (From Edwin-Tab) Allergy (Mild, Verified 03/07/25 09:33) HIVES phenytoin (From Dilantin) Allergy (Mild, Verified 03/07/25 09:33) RASH,HIVES piroxicam (From Feldene) Allergy (Mild, Verified 03/07/25 09:33) HIVES sulfamethoxazole (From Bactrim) Allergy (Mild, Verified 03/07/25 09:33) HIVES trimethoprim (From Bactrim) Allergy (Mild, Verified 03/07/25 09:33) HIVES valproic acid (From Depakene) Allergy (Mild, Verified 03/07/25 09:33) HIVES Depakene Allergy (Unknown, Verified 03/07/25 09:33) Rash hydrochlorothiazide (HYDROCHLOROTHIAZIDE) Allergy (Unknown, Verified 03/07/25 09:33) rash lisinopril (LISINOPRIL) Allergy (Unknown, Verified 03/07/25 09:33) rash galcanezumab-gnlm (From Emgality Pen) Allergy (Verified 03/07/25 09:33) headaches codeine (Codeine) Adverse Reaction (Intermediate, Verified 03/07/25 09:33) NAUSEA & VOMITING rash doxycycline Adverse Reaction (Verified 03/07/25 09:33) Stomach Upset ENVIRONMENTAL Allergy (Intermediate, Uncoded 03/04/25 14:31) ASTHMA,LOSES VOICE TAPE,PLASTIC Allergy (Intermediate, Uncoded 03/04/25 14:31) RASH surgical tape Allergy (Unknown, Uncoded 03/04/25 14:31) unknown Do you need a note to return to daycare/school/sports/work: No HPI EP Wound on arm HPI Details 70 year old female hx of conversion diso rder, hypertension, anxiety, asthma, migrane, vertigo presents w/ concerns of infection to left forearm. She tells me she was at [facility] on Sunday she lost her footing and some nurse tried helping her so she didn't fall and she got scratched. Since then reports redness and swelling to the area w/ discharge PE- skin tear to R forearm w/ discharge. Hx and PE- concerning for cellulites. Offered PO meds: shes afraid to take PO ceftriaxone. She will go to the hospital due to the amount of allergies she has. She tells me she will go to [place] expect called in [facility] Medical History Osteopenia Conversion disorder with attacks or seizures, acute episode, with psychological stressor Falls Anesthesia complication Liver lesion Ingrown toenail Elevated liver enzymes Concussion with loss of consciousness SOB (shortness of breath) Pain of both earlobes Dizziness New onset headache Otitis externa of both ears Acute effusion of right ear Dermatitis Myalgia Headache REM sleep behavior disorder Convulsion disorder COVID-19 Pre-syncope Dyspnea Chest pain Pneumonia Osteoporosis Screening for osteoporosis CKD (chronic kidney disease) Dyslipidemia Hypothyroid Hyperlipemia Ataxic gait Seizures Asthma Depression Conversion disorder HTN (hypertension) Muscle weakness Hypothyroid Surgical History H/O colonoscopy History of right knee surgery History of lobectomy of thyroid History of arthroscopy of right knee History of ankle surgery History of arthroscopy of left knee History of hysterectomy Family History Father CVD (cardiovascular disease) Stomach ulcer Cardiac arrest H/O heart bypass surgery Mother History of heart attack CHF (congestive heart failure) Lung cancer Diabetes mellitus High cholesterol HTN (hypertension) Hypothyroidism Sister Lung cancer Substance use disorder Brother Colitis Sister No problems noted. Sister Obstetric pulmonary blood clot embolism, antepartum Paternal Aunt Mental health disorder Substance use disorder Maternal Grandmother Mental health disorder Family/Other Substance use disorder Social History Household Members: Family Household Members Other:: brother, 2 cats Housing: House Are you a primary nurse behavioral health care to a significant other at home: No Do you presently have visiting nurse or other home services: No Alcohol intake: never Patient Tobacco Use Status: Never used Tobacco e-Cigarette/Vaping Use: Never Used Second Hand Smoke Exposure: No service: No Current occupational status: disabled Cognitive needs: No Hearing needs: No Vision needs: No Review of Systems Const Details: Constitutional : No Weight loss, No Fever, No Chills, No Fatigue, No Malaise ENT/Mouth : No sore throat, No Rhinorrhea Eyes: No Eye Pain, No Swelling, No Redness Cardiovascular : No Chest Pain, No SOB, No Dyspnea on Exertion, No Orthopnea, No Edema, No Palpitations Respiratory : No Cough, No Sputum, No Wheezing Gastrointestinal : No Nausea, No Vomiting, No Diarrhea, No Constipation, No abdominal Pain, No Hematochezia, No Melena Genitourinary : No Dysuria, No Urinary Frequency, No Hematuria, Musculoskeletal : No joint pain, No Myalgias, No Joint Swelling Skin : No Skin Lesions, No rash Neuro : No Weakness, No Numbness, No Dizziness, No Headache Psych : No Anxiety/Panic, No Depression Heme/Lymph: No Bruising, No Bleeding,No Lymphadenopathy Endocrine : No Polyuria, No Polydipsia All other systems reviewed and are negative All systems reviewed & are unremarkable except as noted in HPI and below Physical Exam Exam Exam: Appearance: Alert.? Oriented X3.? No acute distress.? Head: Normocephalic, atraumatic, no step-offs or deformities Eyes: Pupils equal, round and reactive to light.? Neck: Normal inspection.? Neck supple.? CVS: Normal heart rate and rhythm.? Pulses normal.? Respiratory: No respiratory distress.? Breath sounds normal.? Abdomen: Soft and nontender.? Skin: Skin warm and dry.? Normal skin color.? Normal skin turgor.?+skin tear to R forearm w/ discharge. Extremities: No lower extremity edema.? No calf ttp. 5/5 strength to bilateral upper and lower extremities Back: No midline tenderness, no C-spine tenderness, full range of motion, no CVA tenderness bilaterally Neuro: Oriented X 3.? No motor deficit.? No sensory deficit. CN 2-12 intact Vital Signs: Last Vital Signs Temp 98.0 F 03/07/25 09:32 Pulse 72 03/07/25 09:32 BP 122/74 03/07/25 09:32 Pulse Ox 96 03/07/25 09:32 Oxygen Delivery Method Room Air 03/07/25 09:32 vss Assessment & Plan Assessment & Plan (1) Cellulitis: Code(s): L03.90 - Cellulitis, unspecified Plan ED at [facility] Coding Level of Care Code Est Pt Level 3 (59006) Diagnoses Cellulitis L03.90
--- OUTSIDE RECORDS SUMMARY | 2025-03-07 09:19 | XMS_ITS | Clinical Summary ---
Author Organization [facility] ity Address [address] [place] [address] Care Team Providers Care Shrimp Peeling Machine Operator Name Role Phone Unavailable Primary Care Provider [...]
--- OUTSIDE RECORDS SUMMARY | 2025-03-07 09:19 | XMS_ITS | Clinical Summary ---
Author Organization [facility] Address [address] [place] [phone] Phone Care Team Providers Care Business Systems Architect Name Role Phone Case Duff DESKTOP ANALYST Primary Care Provider + Allergies Active Allergy [...] file Insurance MEDICARE PART A & B [facility] MEDICARE PART A & B [facility] MEDICARE REPLACEMENT [place] [id number] MEDICARE PART A & B [facility] MEDICARE REPLACEMENT REBA [place] [id number] MEDICARE PART A & B O MEDICARE REPLACEMENT [facility] MEDICARE PART A & B [facility] MEDICARE REPLACEMENT MEDICARE PART A & B MEDICARE REPLACEMENT MEDICARE PART A & [place] [address] [address] [place] [address] MEDICARE REPLACEMENT MEDICARE PART A & B [facility] MEDICARE REPLACEMENT MEDICARE PART A & B [facility] MEDICARE REPLACEMENT Advance Directives For more information, please contact: [phone] (9AM - 5PM [facility], Sunday-Sunday) Documents on File Type Date Recorded Patient Communications Attendant Expl anation Healthcare Proxy 02/13/2019 1:15 PM Healthcare Agents on File Name Relationship Healthcare Agent Relationship Communication Ariel Neves Brother .Primary Health Care Agent (Proxy form on file) Cierra Mojica Sister Alternate Health care Agent (Proxy form on file) Care Teams Business Systems Architect Relationship Specialty Start Date End Date Case Duff NP [facility] [place] [address] PCP - General Family Medicine 02/07/19 Additional Source Comments The information contained in this document represents components of the legal health record. It is not the complete legal health record.[facility]
--- OUTSIDE RECORDS SUMMARY | 2025-03-07 09:19 | XMS_ITS | Patient Health Record ---
Author Organization [facility] Address [address] [facility] [address] [place] [address] Care Team Providers Care Instrument Maintenance Supervisor Name Role Phone MadhaviCase snell Primary Care Provider UnavailSebastien Lewis Unavailable [phone] GABRIELLE BOO Unavailable [phone] Falguni Madsen Unavailable [phone] Allergies Allergen (clinical drug ingredient) Drug/Non Drug [...] Interpretation: Performing Lab: Notes/Report: MR-Brain (C-) CPT 56423 Reviewed date:01/12/2025 10:12:33 AM Interpretation: Performing Lab: [...] convulsions (F44.5) Active confirmed Problem Mood disorder (30257071) Mood disorder (F39) Active confirmed Problem Seizure disorder (212807209) Seizure disorder (G40.909) Active confirmed Problem Sleep disturbance (52659982) Sleep disturbance, unspecified (G47.9) Active confirmed Problem [...] N/A Encounters Encounter Location Date Provider Diagnosis [address] [address] 11/20/2024 Sebastien Myrikc 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 ; Sleep disturbance, unspecified G47.9 ; Seizure disorder G40.909 and Mood disorder F39 [address] [address] 01/16/2025 Falguni Madsen 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 ; Sleep disturbance, unspecified G47.9 ; Seizure disorder G40.909 ; Mood disorder F39 and Syncope and collapse R55 [address] [address] 02/18/2025 GABRIELLE BOO 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 ; Sleep disturbance, unspecified G47.9 ; Seizure disorder G40.909 ; Mood disorder F39 ; Syncope and collapse R55 and 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 [address] [address] 12/26/[address] [address] 01/16/2025 [facility] Assessments Encounter Date Diagnosis (ICD Code) [...] Dr. Boo, and FND specialist here at [facility], has availability to also evaluate and perhaps [...] R55) she is undergoing workup for this- leaf tinner, EEG pending results. Recommended echo to complete [...] evidence of infarct. She is already wearing leaf tinner and has EEG ordered. Recommended echo to [...] of: Treatments That Work (113 books) by Dano Arrington , Nicole Mattson, et al. Workbook patient can do ON THEIR OWN- Overcoming Functional Neurological Symptoms: A Five Areas Approach 1st Editionby Lucho Walton (Author), Pancho Pearson (Author), Yeimy Damon (Author), Dino Sherwood (Author), Gatito Crouch (Author), Jerald Arceo (Author) [place] resources- GOOD for patients and families- handouts, videos explaining the neurobio of FND [email or web address] [facility] Anil Joe for ALL [...] referring to and communicating with other health animal care worker, documenting clinical information in the record, counseling, providing instructions and answering the patient's questions. The patient understands and agrees with the plan of care outlined. This note was generated with voice recognition software. Please excuse any errors which may have been overlooked during review. Sometimes these errors may affect the content or meaning of a given sentence. If any questions, please contact the QA REVIEWER office at [phone]. Plan Of Treatment Pending Test Test Name Order Date Obtain prior medical records 01/16/2025 Records Request 02/18/2025 Next Appt Details Provider Name:Falguni Dubonilene moody, 03/13/2025 11:00:00 AM, [address] [place] [address], [address], [place], [address], Insurance Providers Payer Name Payer Address Payer Phone Subscriber Number Group Number Insured Name Patient Relationship to Insured Coverage Start Date Coverage End Date [address] [phone] [phone] [id number] Sarahy Neves Self - patient is the insured MEDICARE [address] [place], [place] [id number] Sarahy Neves Self - patient is the insured [employer] [address] [facility] [place] [address] [phone] [id number] Sarahy Neves Self - patient is the [...]
--- OUTSIDE RECORDS SUMMARY | 2025-03-07 09:19 | XMS_ITS | Patient Health Record ---
Author Organization [facility] Address [address] [place] [address] Care Team Providers Care Inspector Eyeglass Frames Name Role Phone MANDO TAMAYO Primary Care Provider Philippe Tsai Jr [phone] Allergies Allergen (clinical drug ingredient) Drug/Non Drug Allergy documented on EMR Reaction Allergy Type Onset Date Status phenytoin Dilantin Unknown Drug Allergy Active valproate [...] erythromycin Erythromycin Unknown Drug Allergy A ctive Reason For [...] e a day Active Mag Oxide-Vit D3-Turmeric [phone] MG-UNIT-MG as directed Orally Active ProAir HFA [...] Status Risk Notes Problem Colon cancer screening (693326903) Colon cancer screening (Z12.11) Active confirmed Problem Screening for malignant neoplasm of colon (504297980) Encounter for screening for malignant neoplasm of colon (Z12.11) Active confirmed Problem Fatty liver (697670388) Fatty liver (K76.0) Active confirmed Problem 807274896 Long-term use of aspirin therapy (Z79.82) Active confirmed Problem Hepatic hemangioma (95964222) Hepatic hemangioma (D18.03) Active confirmed Vital Signs Temperature 96.9 degrees Fahrenheit 09/15/2024 Blood pressure diastolic 01 mm Hg 09/15/2024 Height 60 in 09/15/2024 Blood pressure systolic 001 mm Hg 09/15/2024 Weight 116 lbs 09/15/2024 BMI 22.65 kg/m2 09/15/2024 Encounters Encounter Location Date Provider Diagnosis [facility] [address] [place], [place] [id number] 11/25/2024 Philippe Price Jr Colon cancer screening Z12.11 and Personal history of adenomatous and serrated colon polyps Z86.0101 [facility] [address] [place] [address] 09/15/2024 Philippe Price Jr Fatty liver K76.0 ; Hepatic hemangioma D18.03 and Encounter for screening for malignant neoplasm of colon Z12.11 [facility] [address] [place] [address] 10/08/2024 Philippe Price Jr Assessments Encounter Date [...] Insured Coverage Start Date Coverage End Date [facility] [address] [place] [address] [id number] SWATHI BANDA Self - patient is the [...]
[2025-03-07 09:32] VITALS: BP 122/74; PULSE 72; TEMP 36.7; O2SAT 96
--- OUTSIDE RECORDS SUMMARY | 2025-04-11 20:00 | XMS_ITS | Clinical Summary ---
Author Organization Unknown Care Team Providers Care Phone Operator Name Role Phone RONI ALVARADO, MANDO Unavailable Unavailable RIZWANA AQUINO, FRED Unavailable Unavailable Payers Payer Name Policy Type Policy Number Effective Date Expira tion Date [facility] [place] [id number] MEDICAID [facility] [id number] MEDICARE - [facility] [id number] Problems Condition Name Condition Details Condition Category [...] mg chewable tablet 12-14 00:00: 00 Yes [id number] 1 tablet DAILY 1 tablet DAILY (route: oral) Med Classific ation: Hematolog ical Agents atorvastati n 80 mg tablet 12-14 00:00: 00 Yes [id number] 1 tablet BEDTIME 1 tablet BEDTIME (route: oral) Med Classific ation: Cardiovas cular Therapy Agents cetirizine 10 mg tablet 12-14 00:00: 00 Yes [id number] 1 tablet DAILY 1 tablet DAILY (route: oral) Med Classific ation: Respirato ry Therapy Agents clonazepam 0.5 mg tablet 12-14 00:00: 00 Yes [id number] PRN FOR ANXIETY/MINH TATiON 1 tablet 2 TIMES DAILY 1 tablet 2 TIMES DAILY (route: oral) Med Classific ation: Central Nervous System Agents docusate sodium 100 mg capsule 12-14 00:00: 00 Yes [id number] 1 capsule BEDTIME 1 capsule BEDTIME (route: oral) Med Classific ation: Gastroint estinal Therapy Agents ezetimibe 10 mg tablet 12-14 00:00: 00 Yes [id number] 1 tablet DAILY 1 tablet DAILY (route: oral) Med Classific ation: Cardiovas cular Therapy Agents fludrocorti sone 0.1 mg tablet 12-14 00:00: 00 Yes [id number] 1 tablet DAILY 1 tablet DAILY (route: oral) Med Classific ation: Endocrine folic acid 800 mcg tablet 12-14 00:00: 00 Yes [id number] 1 tablet DAILY 1 tablet DAILY (route: oral) Med Classific ation: Electroly te Balance-N utritiona l Products levothyroxi ne 25 mcg tablet 12-14 00:00: 00 Yes [id number] 1 tablet DAILY 1 tablet DAILY (route: oral) Med Classific ation: Endocrine magnesium 400 mg (as magnesium oxide) tablet 12-14 00:00: 00 Yes [id number] 1 tablet BEDTIME 1 tablet BEDTIME (route: oral) Med Classific ation: Electroly te Balance-N utritiona l Products melatonin 10 mg tablet 12-14 00:00: 00 Yes [id number] 1 tablet BEDTIME 1 tablet BEDTIME (route: oral) Med Classific ation: Central Nervous System Agents montelukast 10 mg tablet 12-14 00:00: 00 Yes [id number] 1 tablet BEDTIME 1 tablet BEDTIME (route: oral) Med Classific ation: Respirato ry Therapy Agents sertraline 25 mg tablet 12-14 00:00: 00 01-19 23:59 :00 No [id number] 2 tablet DAILY 2 tablet DAILY (route: oral) Med Classific ation: Central Nervous System Agents sumatriptan 100 mg tablet 12-14 00:00: 00 Yes [id number] 1 tablet DAILY 1 tablet DAILY (route: oral) Med Classific ation: Central Nervous System Agents topiramate 100 mg tablet 12-14 00:00: 00 Yes [id number] 1 tablet 2 TIMES DAILY 1 tablet 2 TIMES DAILY (route: oral) Med Classific ation: Central Nervous System Agents sertraline 25 mg tablet 8-11 00:00: 00 Yes [id number] 3 tablet EVERY AM 3 tablet EVERY AM (route: oral) Med Classific ation: Central Nervous System Agents memantine 7 mg capsule sprinkle,ex tended release 24hr 9-04 00:00: 00 02-16 23:59 :00 No [id number] 1 capsule DAILY 1 capsule DAILY (route: oral) Med Classific ation: Cognitive Disorder Therapy fluticasone propionate 50 mcg/actuati on nasal spray,suspe nsion 9-08 00:00: 00 Yes [id number] 1 spray DAILY 1 spray DAILY (route: nasal) Med Classific ation: Respirato ry Therapy Agents memantine 14 mg capsule sprinkle,ex tended release 24hr 02-16 00:00: 00 Yes [id number] 1 capsule DAILY 1 capsule DAILY (route: oral) Med Classific ation: Cognitive Disorder Therapy Vital Signs Vital Name Observation Time Observation Value Commen ts Pulse 2025-03-04 09:49:00.000 80 /min Pulse 2025-03-02 13:17:00.000 78 /min Pulse 2025-02-23 09:48:00.000 71 /min Pulse 2025-02-16 10:08:00.000 76 /min Pulse 2025-02-13 09:55:00.000 82 /min O2 Saturation (%) 2025-03-02 13:17:00.000 95 % O2 Saturation (%) 2025-02-23 09:48:00.000 99 % O2 Saturation (%) 2025-02-16 10:08:00.000 97 % O2 Saturation (%) 2025-02-13 09:55:00.000 97 % Respirations 2025-03-04 09:49:00.000 20 /min Respirations 2025-03-02 13:17:00.000 20 /min Respirations 2025-02-23 09:48:00.000 20 /min Respirations 2025-02-16 10:08:00.000 20 /min Respirations 2025-02-13 09:55:00.000 20 /min Systolic Blood Pressure 2025-03-02 13:17:00.000 124 mm [Hg] Systolic Blood Pressure 2025-02-23 09:48:00.000 128 mm [Hg] Systolic Blood Pressure 2025-02-16 10:08:00.000 100 mm [Hg] Systolic Blood Pressure 2025-02-13 09:55:00.000 120 mm [Hg] Diastolic Blood Pressure 2025-03-02 13:17:00.000 [...] AWARENESS FOR SAFETY AND WILL NOTIFY CLINICAL AIR CARRIER MAINTENANCE INSPECTOR AND PHYSICIAN/PROVIDER WITH ANY CHANGE IN CONDITION. [code = SKILLED NURSE WILL MAINTAIN SITUATIONAL AWARENESS FOR SAFETY AND WILL NOTIFY CLINICAL AIR CARRIER MAINTENANCE INSPECTOR AND PHYSICIAN/PROVIDER WITH ANY CHANGE IN CONDITION.] [...] CARE WILL BE ESTABLISHED THAT MEETS PATIENT'S [facility] NEEDS AND INCLUDES PATIENT GOAL FOR HOME [...] 00:00:00 2025-04-12 00:00:00 Outpatient RECERTIFIC FRED MCARTHUR [facility] [id number] 90.91
--- OUTSIDE RECORDS SUMMARY | 2025-04-11 20:00 | XMS_ITS | Clinical Summary ---
Author Organization Unknown Care Team Providers Care Gas Operation Manager Name Role Phone RONI ALVARADO, MANDO Unavailable Unavailable RIZWANA AQUINO, FRED Unavailable Unavailable Payers Payer Name Policy Type Policy Number Effective Date Expira tion Date [facility] [id number] MEDICAID [facility] [id number] MEDICARE - [facility] [id number] Problems Condition Name Condition Details Condition Category [...] mg chewable tablet 12-14 00:00: 00 Yes [id number] 1 tablet DAILY 1 tablet DAILY (route: oral) Med Classific ation: Hematolog ical Agents atorvastati n 80 mg tablet 12-14 00:00: 00 Yes [id number] 1 tablet BEDTIME 1 tablet BEDTIME (route: oral) Med Classific ation: Cardiovas cular Therapy Agents cetirizine 10 mg tablet 12-14 00:00: 00 Yes [id number] 1 tablet DAILY 1 tablet DAILY (route: oral) Med Classific ation: Respirato ry Therapy Agents clonazepam 0.5 mg tablet 12-14 00:00: 00 Yes [id number] PRN FOR ANXIETY/MINH TATiON 1 tablet 2 TIMES DAILY 1 tablet 2 TIMES DAILY (route: oral) Med Classific ation: Central Nervous System Agents docusate sodium 100 mg capsule 12-14 00:00: 00 Yes [id number] 1 capsule BEDTIME 1 capsule BEDTIME (route: oral) Med Classific ation: Gastroint estinal Therapy Agents ezetimibe 10 mg tablet 12-14 00:00: 00 Yes [id number] 1 tablet DAILY 1 tablet DAILY (route: oral) Med Classific ation: Cardiovas cular Therapy Agents fludrocorti sone 0.1 mg tablet 12-14 00:00: 00 Yes [id number] 1 tablet DAILY 1 tablet DAILY (route: oral) Med Classific ation: Endocrine folic acid 800 mcg tablet 12-14 00:00: 00 Yes [id number] 1 tablet DAILY 1 tablet DAILY (route: oral) Med Classific ation: Electroly te Balance-N utritiona l Products levothyroxi ne 25 mcg tablet 12-14 00:00: 00 Yes [id number] 1 tablet DAILY 1 tablet DAILY (route: oral) Med Classific ation: Endocrine magnesium 400 mg (as magnesium oxide) tablet 12-14 00:00: 00 Yes [id number] 1 tablet BEDTIME 1 tablet BEDTIME (route: oral) Med Classific ation: Electroly te Balance-N utritiona l Products melatonin 10 mg tablet 12-14 00:00: 00 Yes [id number] 1 tablet BEDTIME 1 tablet BEDTIME (route: oral) Med Classific ation: Central Nervous System Agents montelukast 10 mg tablet 12-14 00:00: 00 Yes [id number] 1 tablet BEDTIME 1 tablet BEDTIME (route: oral) Med Classific ation: Respirato ry Therapy Agents sertraline 25 mg tablet 12-14 00:00: 00 01-19 23:59 :00 No [id number] 2 tablet DAILY 2 tablet DAILY (route: oral) Med Classific ation: Central Nervous System Agents sumatriptan 100 mg tablet 12-14 00:00: 00 Yes [id number] 1 tablet DAILY 1 tablet DAILY (route: oral) Med Classific ation: Central Nervous System Agents topiramate 100 mg tablet 12-14 00:00: 00 Yes [id number] 1 tablet 2 TIMES DAILY 1 tablet 2 TIMES DAILY (route: oral) Med Classific ation: Central Nervous System Agents sertraline 25 mg tablet 8-11 00:00: 00 Yes [id number] 3 tablet EVERY AM 3 tablet EVERY AM (route: oral) Med Classific ation: Central Nervous System Agents memantine 7 mg capsule sprinkle,ex tended release 24hr 9-04 00:00: 00 02-16 23:59 :00 No [id number] 1 capsule DAILY 1 capsule DAILY (route: oral) Med Classific ation: Cognitive Disorder Therapy fluticasone propionate 50 mcg/actuati on nasal spray,suspe nsion 9-08 00:00: 00 Yes [id number] 1 spray DAILY 1 spray DAILY (route: nasal) Med Classific ation: Respirato ry Therapy Agents memantine 14 mg capsule sprinkle,ex tended release 24hr 02-16 00:00: 00 Yes [id number] 1 capsule DAILY 1 capsule DAILY (route: [...] AWARENESS FOR SAFETY AND WILL NOTIFY CLINICAL NETWORK FIREWALL ENGINEER AND PHYSICIAN/PROVIDER WITH ANY CHANGE IN CONDITION. [code = SKILLED NURSE WILL MAINTAIN SITUATIONAL AWARENESS FOR SAFETY AND WILL NOTIFY CLINICAL NETWORK FIREWALL ENGINEER AND PHYSICIAN/PROVIDER WITH ANY CHANGE IN CONDITION.] [...] CARE WILL BE ESTABLISHED THAT MEETS PATIENT'S LONG-TERM NEEDS AND INCLUDES PATIENT GOAL FOR HOME [...] End Date/Time Encounter Type Admission Type Attending [facility] Facility Care Department Encounter ID Discharge Date Discharge Status Discharge Condition Discharge Reason Percent Goals Met 2025-02-12 00:00:00 2025-04-12 00:00:00 Outpatient RECERTIFIC FRED [facility] [id number] 90.91
== END 2025-03-07 10:39 | disposition home or self-care (01) ==
PROVIDERS: PCP Nurse Practitioner Family; Visit Provider Physician Assistant
DX: L03.90 Cellulitis, unspecified (principal)

== ENCOUNTER 2025-03-07 10:28 | Emergency (ER) | payer OTHER, SELFPAY ==
[2025-03-07 10:50] VITALS: BP 155/70; PULSE 67; RESP 16; TEMP 36.2; O2SAT 98; BMI 22.7
--- NOTE | 2025-03-07 11:00 | ED_ITS ---
HPI - General Adult General Chief complaint: Wound/Laceration Stated complaint: r arm infection Time Seen by Provider: 03/07/25 12:57 Source: patient Mode of arrival: ambulatory Limitations: no limitations History of Present Illness ED Provider: Molly Kate APRN HPI narrative: 70-year-old female with a history of functional neurological disorder, migraines, hypertension, hyperlipidemia, depression, hypothyroidism here with complaints of redness and swelling around a abrasion that she has in her right arm. She reports this happened after a fall a few days ago. She is putting topical antibiotic ointment on the area and performing dressing changes. She denies any associated warmth, fevers, chills, numbness or tingling. Related Data Home Medications ?Medication ?Instructions ?Recorded ?Confirmed aspirin 81 mg tablet,delayed 81 mg PO DAILY 07/05/20 0 01/15/25 release (Adult Low Dose Aspirin) atorvastatin 80 mg tablet 80 mg PO BEDTIME 12/08/24 docusate sodium 100 mg capsule 100 mg PO BEDTIME 12/0801/15/25 melatonin 10 mg tablet 10 mg PO BEDTIME 12/08/24 risedronate 35 mg tablet 35 mg PO MCKEE@0900 12/08/24 sertraline 25 mg tablet 50 mg PO DAILY 12/08/2401/02 Previous Rx's ?Medication ?Instructions ?Recorded albuterol sulfate 2.5 mg/3 mL 2.5 mg (3 mL) inhalation QID PRN 02/09/22 (0.083 %) solution for nebulization shortness of breat h or wheezing 90 days #180 mL [facility] unit #1 ea 10/30/22 ezetimibe 10 mg tablet 10 mg PO DAILY #90 tabs 01/09 12/02 albuterol sulfate 90 mcg/actuation 2 puff PO Q6H PRN f or wheezing 04/14/24 aerosol inhaler #6.7 grams cetirizine 10 mg tablet (All Day 10 mg PO DAILY PRN al lergy 05/17/24 Allergy (cetirizine)) symptoms 30 days #30 tabs folic acid 800 mcg tablet 0.8 mg PO DAILY #90 tabs 09/02 fluticasone propionate 50 1 spray intranasal DAILY 90 days 10/18/24 mcg/actuation nasal #48 grams spray,suspension cholecalciferol (vitamin D3) 50 50 mcg PO DAILY 90 day s #90 caps 11/14/24 mcg (2,000 unit) capsule magnesium oxide 400 mg (241.3 mg 400 mg PO BEDTIME kirill rrhea 90 days 12/24/24 magnesium) tablet #90 tabs fludrocortisone 0.1 mg tablet 0.1 mg PO DAILY for bloo d pressure 12/25/24 90 days #90 tabs meclizine 25 mg tablet 25 mg PO DAILY PRN dizziness #20 12/25/24 tabs clonazepam 0.5 mg tablet 0.5 mg PO BID anxiety/agitat ion 30 01/15/25 days #60 tabs fluticasone 250 mcg-salmeterol 50 1 ea PO BID #180 ea 02/12/25 mcg/dose blistr powdr for inhalation (Wixela Inhub) levothyroxine 25 mcg tablet 25 mcg PO DAILY #90 tabs 0 02/12/25 riboflavin (vitamin B2) 400 mg 400 mg PO DAILY 90 days #90 tabs 02/15/25 tablet sumatriptan succinate 100 mg tablet 100 mg PO Q2H PRN Migraine 02/20/25 Headache 30 days #12 tabs montelukast 10 mg tablet 10 mg PO DAILY #90 tabs 02/09 11/02 topiramate 100 mg tablet 100 mg PO BID 90 days #180 t abs 02/24/25 memantine 21 mg capsule 21 mg PO DAILY 30 days #30 e a 03/03/25 sprinkle,extended release 24hr cefpodoxime 200 mg tablet 200 mg PO BID #14 tabs 03/07 Allergies Allergy/AdvReac Type Severity Reaction Status Date / Time Penicillins (PENICILLINS) Allergy Intermediate HIVES Verified 03/07/25 10:54 carbamazepine (From Tegretol) Allergy Mild HIVES Verified 03/07/25 10:54 diflunisal (From Dolobid) Allergy Mild HIVES Verified 03/07/25 10:54 erythromycin base (From Allergy Mild HIVES Verified 03/07/25 10:54 Ediwn-Tab) phenytoin (From Dilantin) Allergy Mild RASH,HIVES Verified 03/07/25 10:54 piroxicam (From Feldene) Allergy Mild HIVES Verified 03/07/25 10:54 sulfamethoxazole (From Allergy Mild HIVES Verified 03/07/25 10:54 Bactrim) trimethoprim (From Bactrim) Allergy Mild HIVES Verified 03/07/25 10:54 valproic acid (From Depakene) Allergy Mild HIVES Verified 03/07/25 10:54 Depakene Allergy Unknown Rash Verified 03/07/25 10:54 hydrochlorothiazide Allergy Unknown rash Verified 03/07/25 10:54 (HYDROCHLOROTHIAZIDE) lisinopril (LISINOPRIL) Allergy Unknown rash Verified 03/07/25 10:54 galcanezumab-gnlm (From Allergy headaches Verified 03/07/25 10:54 Emgality Pen) codeine (Codeine) AdvReac Intermediate NAUSEA & Verified 03/07/25 10:54 VOMITING rash doxycycline AdvReac Stomach Verified 03/07/25 10:54 Upset ENVIRONMENTAL Allergy Intermediate ASTHMA,LOSES Uncoded 03/04/25 14:31 VOICE TAPE,PLASTIC Allergy Intermediate RASH Uncoded 03/04/25 14:31 surgical tape Allergy Unknown unknown Uncoded 03/04/25 14:31 Review of Systems 2 Review of Systems: Yes all other systems are reviewed and are negative Constitutional: Constitutional: Reports no additional constitutional complaints, Denies body ache(s), Denies chills, Denies fever(s), Denies headache(s) and Denies weakness Eyes: Eyes: Reports no additional eye complaints and Denies change in vision ENT: Reports system reviewed and no additional complaints, except as documented, Denies dizziness, Denies headache(s), Denies nasal congestion, Denies nasal discharge and Denies neck pain Cardiovascular: Cardiovascular: Reports no additional cardiovascular complaints, Denies chest pain, Denies leg edema and Denies dyspnea Respiratory: Respiratory: Reports no additional respiratory complaints, Denies cough and Denies dyspnea Gastrointestinal: Gastrointestinal: Reports no additional gastrointestinal complaints, Denies abdominal pain, Denies diarrhea, Denies nausea and Denies vomiting Genitourinary: Genitourinary: Reports no additional female genitourinary complaints and Denies urinary incontinence Musculoskeletal: Musculoskeletal: Reports no additional musculoskeletal complaints, Denies back pain, Denies arthralgias, Denies joint swelling, Denies neck pain, Denies numbness and Denies tingling Integumentary/Breasts: Skin/Breast: Reports system reviewed and no additional complaints, except as docu, Reports swelling, Reports erythema, Denies rash and Reports wounds Neurologic: Reports system reviewed and no additional complaints, except as documented, Denies Abnormal speech present, Denies dizziness, Denies headache(s), Denies numbness, Denies tingling and Denies weakness PMFSH Past Medical History Attestation statement: The following information was validated with the patient. Source: old records reviewed and nursing notes reviewed Medical History Osteopenia Conversion disorder with attacks or seizures, acute episode, with psychological stressor Falls Anesthesia complication Liver lesion Ingrown toenail Elevated liver enzymes Concussion with loss of consciousness SOB (shortness of breath) Pain of both earlobes Dizziness New onset headache Otitis externa of both ears Acute effusion of right ear Dermatitis Myalgia Headache REM sleep behavior disorder Convulsion disorder COVID-19 Pre-syncope Dyspnea Chest pain Pneumonia Osteoporosis Screening for osteoporosis CKD (chronic kidney disease) Dyslipidemia Hypothyroid Hyperlipemia Ataxic gait Seizures Asthma Depression Conversion disorder HTN (hypertension) Muscle weakness Hypothyroid Surgical History H/O colonoscopy History of right knee surgery History of lobectomy of thyroid History of arthroscopy of right knee History of ankle surgery History of arthroscopy of left knee History of hysterectomy Family History Family History Father CVD (cardiovascular disease) Stomach ulcer Cardiac arrest H/O heart bypass surgery Mother History of heart attack CHF (congestive heart failure) Lung cancer Diabetes mellitus High cholesterol HTN (hypertension) Hypothyroidism Sister Lung cancer Substance use disorder Brother Colitis Sister No problems noted. Sister Obstetric pulmonary blood clot embolism, antepartum Paternal Aunt Mental health disorder Substance use disorder Maternal Grandmother Mental health disorder Family/Other Substance use disorder Social History Social History Household Members: Family Household Members Other:: brother, 2 cats Housing: House Are you a primary animal caregiver to a significant other at home: No Do you presently have visiting nurse or other home services: No Alcohol intake: never Patient Tobacco Use Status: Never used Tobacco Smoked in Last 30 Days: No e-Cigarette/Vaping Use: Never Used Second Hand Smoke Exposure: No Use of substances other than those prescribed or required for medical reasons: No Advance Directives: No Advance Directives Information Provided: No service: No Current occupational status: disabled Cognitive needs: No Hearing needs: No Vision needs: No Physical Exam ED Vital Signs: Vital Signs - 24 hr 03/07/25 10:50 03/07/25 13:57 Temperature 97.2 F 97.2 F Pulse Rate 67 67 Respiratory Rate 16 16 Blood Pressure 155/70 H 155/70 H Pulse Oximetry 98 98 Oxygen Delivery Method Room Air Room Air BMI result Body Mass Index 22.7 Const General: cooperative, healthy appearing, comfortable and no acute distress Orientation/consciousness: patient oriented x3 Limitations: no limitations HENMT Head: Yes normal to inspection Ears: hearing grossly normal bilaterally General nose exam: Normal external nose present Face and sinus: Yes normal facial exam Mouth: Normal oral and palatal mucosa present Throat: Yes posterior oropharynx normal Eyes General: appearance normal, both eyes and all related structures Pupils: Equal, round and reactive pupils present Neck Neck: Yes normal visual inspection Chest Chest palpation & inspection: normal inspection of the chest Resp Effort & Inspection: normal respiratory effort Auscultation: clear to auscultation bilaterally Cardio Rate: regular rate Rhythm: regular rhythm Peripheral pulses: Peripheral pulses 2+ throughout GI Inspection: Yes normal to inspection Palpation (GI): Soft to palpation and nontender Auscultation: normal bowel sounds Back/Spine/Pelvis Thoracic/Lumbar Spine: thoracic and lumbar spine normal to inspection Skin General skin exam: no rashes or lesions noted Neuro General: patient oriented x3, no focal motor deficits and normal sensation to monofilament Cranial nerves: Yes Equal, round and reactive pupils present Cognition (Neuro): normal cognition Speech: No Abnormal speech present Gait exam (Neuro): Normal gait present Motor exam (neuro): 5/5 motor strength present throughout Extrem Other: There is no circumferential redness. CMS intact distally. Course Course Course Narrative: This is a rapid medical exam performed by Beau Christopher NP: Additional HPI, ROS, PE not included below will be deferred to primary provider. Patient is a 70y/o F presenting from urgent care for IV abx. Got a scratch to R arm last Wed, not healing. Declined PO abx at urgent care due to multiple allergies and afraid of reactions. Plan: Labs Medical Decision Making Medical Decision Making [facility] Narrative: 70-year-old female with a history of functional neurological disorder, migraines, hypertension, hyperlipidemia, depression, hypothyroidism here with complaints of redness and swelling around a abrasion that she has in her right arm. She reports this happened after a fall a few days ago. She is putting topical antibiotic ointment on the area and performing dressing changes. She denies any associated warmth, fevers, chills, numbness or tingling. See PE for photos Patient has a VERY mild wound infection. She reportedly went to but did not feel they were able to offer her an oral antibiotic option with her allergy history. This prompted her visit here. I reviewed labs ordered from triage. I will place her on cefpodoxime BID x 7 days, recommend continued wound care at home. Differential Diagnosis Differential Diagnoses: The differential diagnosis associated with the presentation includes Wound infection, cellulitis Admission/Observation Consideration of admission/observation: Escalation of care including admission/observation considered Lab Data [facility] Lab Attestation statement: I reviewed the patient's lab results. 03/07/25 11:14 03/07/25 11:14 Labs: Lab Results 03/07/25 Range/Units 11:14 WBC 6.9 (4.8-10.8) X10*3/uL RBC 4.38 (4.20-5.50) X10*6/uL Hgb 13.4 (12.0-16.0) g/dl Hct 41.1 (37.0-47.0) % MCV 93.8 (80.0-98.0) fL MCH 30.6 (27.0-33.0) pg MCHC 32.6 (31.0-35.0) g/dl RDW 14.1 (11.0-16.0) % Plt Count 309 (160-400) X10*3/uL MPV 9.5 (9.4-12.3) fL Immature Gran % (Auto) 0.3 (0.0-0.4) % Neut % (Auto) 65.6 (45-73) % Lymph % (Auto) 21.0 (20-40) % [place] % (Auto) 7.5 (2-11) % Eos % (Auto) 4.4 H (0-4) % Baso % (Auto) 1.2 (0-2) % Lymph # (Auto) 1.5 (1.2-4.9) X10*3/uL [place] # (Auto) 0.5 (0.1-1.2) X10*3/uL Eos # (Auto) 0.3 (0.0-0.4) X10*3/uL Baso # (Auto) 0.1 (0.0-0.2) X10*3/uL Abs Immat Gran (auto) 0.02 (0.00-0.03) X10*3/uL Absolute Neuts (auto) 4.5 (2.0-8.3) x10*3/uL Absolute Nucleated RBC 0.000 (0.0-0.012) X10*3/uL Nucleated RBC % (auto) 0.0 (0.0-0.2) /100WBC ESR 9 (0-20) MM/HR Sodium 143 (135-145) mmol/L Potassium 4.5 (3.3-5.1) mmol/L Chloride 114 H (96-108) mmol/L Carbon Dioxide 25 (22-29) mmol/L Anion Gap 9 L (12-20) BUN 12 (9-16) mg/dL Creatinine 0.99 (0.5-1.4) mg/dL Estim Creat Clear Calc 39.3 Estimated GFR 55 Random Glucose 95 (60-115) mg/dL Calcium 9.1 (8.4-10.2) mg/dL Total Bilirubin 0.3 (0.0-1.0) mg/dL AST 32 H (5-31) U/L ALT 23 (0-31) U/L Alkaline Phosphatase 74 (39-117) U/L C-Reactive Protein < 0.04 (< or = 0.50) mg/dL Total Protein 6.6 (6.5-8.0) g/dL Albumin 4.2 (3.5-5.0) g/dL Prescription Management I considered prescription management with: Antibiotic Discharge Plan Discharge Clinical Impression: Wound infection Patient Disposition: Home, Self-Care Instructions: Wound Infection (ED) Additional Instructions: Continue to apply the antibiotic ointment Keep the wound clean covered and dry Take the antibiotics as prescribed Return for worsening symptom Prescriptions: New cefpodoxime 200 mg tablet 200 mg PO BID Qty: 14 0RF Rx Instructions: must administer with a meal/food No Action (DME) [facility] See Rx Instructions .Route .MEDSUPPLY Qty: 1 0RF Rx Instructions: As directed ezetimibe 10 mg tablet 10 mg PO DAILY Qty: 90 1RF albuterol sulfate 90 mcg/actuation HFA aerosol inhaler 2 puff PO Q6H PRN (Reason: for wheezing) Qty: 6.7 0RF folic acid 800 mcg tablet 0.8 mg PO DAILY Qty: 90 1RF fluticasone propionate 50 mcg/actuation spray,suspension 1 spray intranasal DAILY 90 Days Qty: 48 1RF Rx Instructions: administer into each nostril cholecalciferol (vitamin D3) 50 mcg (2,000 unit) capsule 50 mcg PO DAILY 90 Days Qty: 90 1RF magnesium oxide 400 mg (241.3 mg magnesium) tablet 400 mg PO BEDTIME 90 Days Qty: 90 3RF meclizine 25 mg tablet 25 mg PO DAILY PRN (Reason: dizziness) Qty: 20 0RF clonazepam 0.5 mg tablet 0.5 mg PO BID 30 Days Qty: 60 3RF fluticasone propion-salmeterol [Wixela Inhub] 250-50 mcg/dose blister with device 1 ea PO BID Qty: 180 0RF levothyroxine 25 mcg tablet 25 mcg PO DAILY Qty: 90 0RF riboflavin (vitamin B2) 400 mg tablet 400 mg PO DAILY 90 Days Qty: 90 3RF sumatriptan succinate 100 mg tablet 100 mg PO Q2H PRN (Reason: Migraine Headache) 30 Days Qty: 12 3RF Rx Instructions: Max 2 tabs per day or 4 tabs per week. montelukast 10 mg tablet 10 mg PO DAILY Qty: 90 1RF topiramate 100 mg tablet 100 mg PO BID 90 Days Qty: 180 1RF memantine 21 mg capsule,sprinkle,ER 24hr 21 mg PO DAILY 30 Days Qty: 30 0RF Rx Instructions: Then stop and increase the dose to 28 mg daily atorvastatin 80 mg tablet 80 mg PO BEDTIME risedronate 35 mg tablet 35 mg PO MCKEE@0900 sertraline 25 mg tablet 50 mg PO DAILY docusate sodium 100 mg Capsule 100 mg PO BEDTIME melatonin 10 mg Tablet 10 mg PO BEDTIME aspirin [Adult Low Dose Aspirin] 81 mg tablet,delayed release (DR/EC) 81 mg PO DAILY albuterol sulfate 2.5 mg /3 mL (0.083 %) solution for nebulization 2.5 mg inhalation QID PRN (Reason: shortness of breath or wheezing) 90 Days Qty: 180 0RF Rx Instructions: for neb cetirizine [All Day Allergy (cetirizine)] 10 mg tablet 10 mg PO DAILY PRN (Reason: allergy symptoms) 30 Days Qty: 30 0RF fludrocortisone 0.1 mg tablet 0.1 mg PO DAILY 90 Days Qty: 90 1RF Referrals: Case Duff, EMPLOYEE [employer]IST[employer] [Primary Care Provider, Internal Medicine] Interventions: ED Discharge Assessment Last Done: 03/07/25 13:57 Discharge Date/Time: 03/07/25 13:57 Print Language: [place]
[2025-03-07 11:20] LABS: MANUAL DIFF FLAG NO
[2025-03-07 11:23] LABS: Hematocrit 41.1 % (37.0-47.0); Hemoglobin 13.4 g/dl (12.0-16.0); Imm Gran Abs Auto 0.02 X10*3/uL (0.00-0.03); Imm Gran Pct Auto 0.3 % (0.0-0.4); Lymphocytes Absolute Auto 1.5 X10*3/uL (1.2-4.9); Mean Corpuscular HGB Conc 32.6 g/dl (31.0-35.0); Mean Corpuscular Hemoglobin 30.6 pg (27.0-33.0); Mean Corpuscular Volume 93.8 fL (80.0-98.0); NRBC Abs Auto 0.000 X10*3/uL (0.0-0.012); NRBC Pct Auto 0.0 /100WBC (0.0-0.2); Platelet Count 309 X10*3/uL (160-400); Red Blood Count 4.38 X10*6/uL (4.20-5.50); White Blood Count 6.9 X10*3/uL (4.8-10.8)
[2025-03-07 11:52] LABS: Alanine Aminotransferase 23 U/L (0-31); Albumin Level 4.2 g/dL (3.5-5.0); Alkaline Phosphatase 74 U/L (39-117); Anion Gap 9 (12-20); Aspartate Amino Transferase 32 U/L (5-31); Blood Urea Nitrogen 12 mg/dL (9-16); Calcium 9.1 mg/dL (8.4-10.2); Carbon Dioxide 25 mmol/L (22-29); Chloride 114 mmol/L (96-108); Creatinine Clr Calc Pharmacy 39.3; Estimated Glomerular Filt Rate 55; Potassium 4.5 mmol/L (3.3-5.1); Sodium 143 mmol/L (135-145); Total Protein 6.6 g/dL (6.5-8.0)
[2025-03-07 13:57] VITALS: BP 155/70; PULSE 67; RESP 16; TEMP 36.2; O2SAT 98
== END 2025-03-07 13:57 | disposition home or self-care (01) ==
PROVIDERS: Registered Nurse Emergency; Emergency Provider Emergency Medicine Emergency Medical Services; PCP Nurse Practitioner Family
DX: S41.111A Laceration without foreign body of right upper arm, initial encounter (principal); L08.9 Local infection of the skin and subcutaneous tissue, unspecified; X58.XXXA Exposure to other specified factors, initial encounter; Y93.9 Activity, unspecified; Y92.9 Unspecified place or not applicable; Y99.8 Other external cause status; Z79.899 Other long term (current) drug therapy
CPT/HCPCS: 36415; 80053; 85025; 85652; 86140; 99212; 99283; 99284

== ENCOUNTER 2025-03-17 13:28 | Outpatient (AMB) | payer OTHER, SELFPAY ==
--- OUTSIDE RECORDS SUMMARY | 2024-10-10 06:50 | XMS_ITS ---
Author Organization [facility] Address [address] [place] [address] Care Team Providers Care Discotheque Dancer Name Role Phone MANDO TAMAYO Primary Care Provider Philippe Tsai Jr REASON FOR VISIT screening Encounters Encounter Location Date Provider Diagnosis [facility] [place] [address] [place] [id number] 10/10/2024 Philippe Price Jr Plan Of Treatment No Information Progress Notes * GENESISMaryam SWATHI BORJASFARHADOB: [birth year] (70 yo F)Acc No.[id number]:10/10/2024 COLON WITH MAC Patient: SWATHI RICHARDS Provider: Allison Price MD :1955 A ge:69 Y S ex:Female Date:10/10/2024 Address:[facility] [id number] Pcp:MANDO TAMAYO Subjective: * Chief Complaints: * [...] Price MD Date: 0 10/10/2024 Generated for Printi ng/Faxing/eTransmitting on: 1 04:32 PM EDT
--- OUTSIDE RECORDS SUMMARY | 2024-11-25 07:50 | XMS_ITS ---
Author Organization [facility] Address [address] [place] [address] Care Team Providers Care Labor Economist Name Role Phone MANDO TAMAYO Primary Care Provider Philippe Tsai Jr REASON FOR VISIT screening Encounters Encounter Location Date Provider Diagnosis [facility] [place] [address] [place] [id number] 11/25/2024 Philippe Price Jr Colon cancer screening [...] * SWATHI BANDAOB: [birth year] (70 yo F)Acc No.[id number]:11/25/2024 COLON WITH MAC Patient: Allison NOWAK DWAIN Provider: Allison Price MD :1955 A ge:69 Y S ex:Female Date:11/25/2024 Address:[address] [place], [place] [address] Pcp:MANDO TAMAYO Subjective: * Chief Complaints: * [...] 11/25/2024 Generated for Elisa barbosa/Silas/Matiitting on: 1 04:31 PM EDT
--- OUTSIDE RECORDS SUMMARY | 2025-01-08 11:30 | XMS_ITS ---
Author Organization [employer] Address [address] [facility] [address] [place] [address] Care Team Providers Care Electrician Helper Automotive Name Role Phone Case Duff Primary Care Provider UnavailSebastien Lewis Unavailable [phone] Falguni Madsen Unavailable [phone] REASON FOR VISIT pt called and she is still in [place] Medications Medication SIG (Take, Route, Frequency, Duration) [...] Active Encounters Encounter Location Date Provider Diagnosis [address] [address] 01/08/2025 Falguni Madsen Plan Of Treatment Next Appt Details Provider Name:Falguni moody, 05/13/2025 10:30:00 AM, [address] [place] [address], [phone], Progress Notes * Sarahy NEVES MDOB:[birth year] (70 yo F)Acc No.[id number]:01/08/2025 Progress Note Patient: Sarahy RICHARDS Provider: Connie Madsen, RN, FAMILY AND CONSUMER SCIENCES PROFESSOR-C, WALLET ASSEMBLER :1955 A ge:70 Y S ex:Female Date:01/08/2025 Address:[address] [place] [address] [id number] Pcp:Case Duff Subjective: * Chief Complaints: * 1 . pt called and she is still in [place]. 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 Patient has been out of facility for several years and has been referred back to BIOPROCESSING MANUFACTURING TECHNICIAN for specialized management of FND. Patient does [...] Electronic signature of MITCH Schmitt CNP on 03/17/2025 at 04:31 PM EDT Sign off status: Pending * Provider: Connie Madsen RN, ELENA MEYER Date: 0 01/08/2025 Generated for Printing/Faxing/eTransmitting on: 04:31 PM EDT
--- OUTSIDE RECORDS SUMMARY | 2025-02-20 07:30 | XMS_ITS ---
Author Organization [facility] [email or web address] [facility] Address [address] [place] [address] Care Team Providers Care Bull Fiddle Player Name Role Phone Case Duff Primary Care Provider Sebastien Byrnes Unavailable [phone] Falguni Madsen Unavailable [phone] REASON FOR VISIT 1-2 month f/u- f/u on seizures, echocardiogram Encounters Encounter Location Date Provider Diagnosis [facility] [employer] [address] [address] 02/20/2025 Falguni Madsen Plan Of Treatment Next Appt Details Provider Name:Falguni moody, 05/13/2025 10:30:00 AM, [address] [place] [address], [address], Progress Notes * Sarahy NEVES MDOB:[birth year] (70 yo F)Acc No.[id number]:02/20/2025 Progress Note Patient: Sarahy RICHARDS Provider: Connie Madsen RN, PRESS OPERATOR AUTOMATIC-C, BUFFING WHEEL OPERATOR :1955 A ge:70 Y S ex:Female Date:02/20/2025 Address:[address] [place] [address] [place] Pcp:Case Duff Subjective: * Chief Complaints: * 1 . 1-2 month f/u- f/u on seizures, echocardiogram. * Medical History: Objective: * Vitals: Assessment: Plan: * Treatment: * * Electronic signature of MITCH Schmitt CNP on 03/17/2025 at 04:31 PM EDT Sign off status: Pending * Provider: Connie Madsen RN, ELENA MEYER Date: 0 02/20/2025 Generated for Printing/Faxing/eTransmitting on: 1 04:31 PM EDT
--- OUTSIDE RECORDS SUMMARY | 2025-03-13 07:00 | XMS_ITS ---
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 Name Role Phone SerabetyCase Primary Care Provider UnavailSebastien Lewis Unavailable [phone] Falguni Madsen Unavailable [phone] Allergies Allergen (clinical drug ingredient) Drug/Non Drug [...] Active diflunisal Dolobid Unknown Drug Allergy Active REASON FOR VISIT 2 weeks Medications Medication SIG (Take, Route, Frequency, Duration) Notes Start Date End Date Status Topiramate 100 MG 1 tablet Orally twic e a day Active Vitamin D3 25 MCG (1000 UT) 1 capsule Or ally Once a day; Duration: 30 day(s) Active Levothyroxine Sodium 25 MCG 1 tablet in the morning on an empty stomach Orally Once a day; Duration: 30 days Active Melatonin 5 MG 1 tablet in the even ing Orally Once a day; Duration: 30 day(s) Active Singulair 10 MG 1 tablet Orally Once a day; Duration: 30 day(s) Active Atorvastatin Calcium 40 MG 1 tablet Oral ly twice a day; Duration: 30 days Active KlonoPIN 0.5 MG 1 tablet Orally twic e a day Active Colace 100 MG 1 capsule as needed Orally Once a day; Duration: 30 day(s) Active Flonase Allergy Relief 50 MCG/ACT 1 spray in each nostril Nasally Once a day; Duration: 30 day(s) Active Fludrocortisone Acetate 0.1 MG 2 tablets Orally daily Activ e Albuterol Sulfate HFA 108 (90 Base) MCG/ACT 1 puff as needed Inhalation every 4 hrs Active Anbesol 10 % 1 application as nee ded Mouth/Throat Four times a day Active Aspir-81 Active Acetaminophen 325 MG 1 tablet as needed Orally every 4 hrs 01/22/2020 Active Advair Diskus 250-50 MCG/DOSE as directed Inhalation 01/22/2020 Activ e Alendronate Sodium A ctive Albuterol Sulfate (2.5 MG/3ML) 0.083% 3 mL as needed Inhalation every 6 hrs Active ProAir HFA 108 (90 Base) MCG/ACT 2 puffs Inhalation every 4 hrs As needed Active Meclizine HCl 25 MG 1 tablet as needed Orally every 12 hrs Active SUMAtriptan Succinate 100 MG 1 tablet as needed, may take second dose at least 2 hours after first dose up to 2 tablets per day as needed Orally Once a day Active Sertraline HCl 100 MG 1 tablet Orally On ce a day; Duration: 30 days Active Magnesium Oxide 400 MG 1 tablet with kesha d Orally twice a day Active Vitamin B2 Active MiraLax 17 GM 1 packet mixed with 8 ounces of fluid Orally Once a day Active Problems Problem Type SNOMED Code ICD Code Onset Dates Problem Status W/U Status Risk Notes Problem 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) Active confirmed Vital Signs Blood pressure systolic 168 mm Hg 03/13/20 25 Blood pressure diastolic 75 mm Hg 025 Heart Rate 66 /min 03/13/2025 Height 60 in 03/13/2025 Weight 115 lbs 03/13/2025 BMI 22.46 kg/m2 03/13/2025 Encounters Encounter Location Date Provider Diagnosis [address] [address] 03/13/2025 Falguni Madsen Sleep disturbance, unspecified G47.9 ; Functional neurological symptom disorder with attacks or seizures F44.5 ; Seizure disorder G40.909 ; Mood disorder F39 and Syncope and collapse R55 Assessments Encounter Date Diagnosis (ICD Code) Assessment Notes Treatment Notes Treatment Clinical Notes Section Notes 03/13/2025 Sleep disturbance, unspecified (ICD-10 - G47.9) 03/13/2025 Functional neurological symptom disorder with attacks or seizures (ICD-10 - F44.5) Workbook that they do WITH a trained therapist- Taking Control of your Seizures: Workbook (Treatments That Work)Part of: Treatments That Work (113 books) by Dano Arrington , Nicole Mattson, et al. Workbook patient can do ON THEIR OWN- Overcoming Functional Neurological Symptoms: A Five Areas Approach 1st edition by Lucho Walton (Author), Panhco Pearson (Author), Yeimy Damon (Author), Dino Sherwood (Author), Gatito Crouch (Author), Jerald Arceo (Author) Recommended resources: - FNDhope.org - [place] resources- GOOD for patients and families- handouts, videos explaining the neurobio of FND https://med.[facility]/psychia try/patient_care /fnd.html Website by Dr. Anil Joe for ALL info regarding FND and its variants- reliable resource and in numerous languages- https://www.neur osymptoms.org/en _GB/ Reviewed recent EEG which showed no epileptiform activity during seizure event, suggesting these are nonepileptic seizures. Would not advise starting seizure medication as result. We reviewed diagnosis of functional neurologic disorder. Provided patient with resources as discussed by Dr. Boo at last visit. Recommended she continue to work closely with her therapist. 03/13/2025 Seizure disorder (ICD-10 - G40.909) 03/13/2025 Mood disorder (ICD-10 - F39) Increase Sertraline to 100 mg (4 of the 25 mg tablets). The next refill will be for the 100 mg tablets and you will take one of these per day. Patient reports at least partial benefit from sertraline for anxiety and depression. She is tolerating this medication well without any appreciated side effects. She was interested in a dose increase today. Will increase to 100 mg. Common side effects reviewed. Plan to follow-up again in 1 to 3 months, sooner as needed. 03/13/2025 Syncope and collapse (ICD-10 - R55) Plan Of Treatment Medication Medication Name Sig Start Date Stop Date Notes Sertraline HCl 100 MG 1 tablet Orally On ce a day; Duration: 30 days Treatment Notes Assessment Notes Functional neurological symp clementine disorder with attacks or seizures Workbook that they do WITH a trained therapist- Taking Control of your Seizures: Workbook (Treatments That Work)Part of: Treatments That Work (113 books) by Dano Arrington , Nicole Mattson, et al. Workbook patient can do ON THEIR OWN- Overcoming Functional Neurological Symptoms: A Five Areas Approach 1st edition by Lucho Walton (Author), Pancho Pearson (Author), Yeimy Damon (Author), Dino Sherwood (Author), Gatito Crouch (Author), Jerald Arceo (Author) Recommended resources: - FNDhope.org - [place] resources- GOOD for patients and families- handouts, videos explaining the neurobio of FND https://med.[employer].edu/psychiatry/aliciaen t_care/fnd.html Website by Dr. Anil Joe for ALL info regarding FND and its variants- reliable resource and in numerous languages- https://www.neurosymptoms.org/en_GB/ Mood disorder Increase Sertraline to 100 mg (4 of the 25 mg tablets). The next refill will be for the 100 mg tablets and you will take one of these per day. Next Appt Details Follow Up: 1-3 months, Reaso n: Provider Name:Falguni moody, 05/13/2025 10:30:00 AM, [address] [place] [address], [facility], [place], [address], Progress Notes * Sarahy BANDA MDOB:[birth year] (70 yo F)Acc No.[id number]:03/13/2025 Progress Note Patient: Sarahy RICHARDS Provider: Connie Madsen RN, FUNDRAISING DIRECTOR-C, GEAR SHAPER :1955 A ge:70 Y S ex:Female Date:03/13/2025 Address:[address] [place] [address] [address] [id number] Pcp:Case Duff Subjective: * Chief Complaints: * 2 weeks * HPI: Gelacio tan for visit: Sarahy Banda is a 70-year-old woman with presumed functional neurologic disorder. A t last visit 01/16, sertraline dose was increased 75 mg. Patient reports this has been beneficial and has had some small improvements in anxiety and depression. Has also noted a reduction in hand tremor. However, she notes ongoing feelings of anxiety and depression. He did meet with Dr. Boo on 02/18 for FND consult, and was advised to work with therapist on managing FND symptoms. Reviewed this recommendation and I provided her again with suggested workbooks and other resources to learn about this diagnosis. We also reviewed EEG testing that was done in February, which reportedly patient had a seizure episode during the monitoring. EEG was negative for any epileptiform activity. Patient reports she has not yet obtained workbooks. She does continue to work closely with her therapist. There are no new neurologic concerns today. Workup: - CT head 12/08/24 - possible acute/subacute ischemic changes in L parietal lobe - CTA head/neck 12/08/24 - no significant stenosis - MRI brain without contrast 12/08/24 - Small non-specific white matter FLAIR hyperintensities, likely chronic microangiopathic changes. No acute intracranial findings. No evidence of acute infarct. - EEG 02/12/2025 - had event during monitoring, which did not correlate to any epileptiform discharged. EEG overall unremarkable. * ROS: F urther neurologic psychiatric and systemic review of systems is otherwise unremarkable. * Medical History: * Medications: T akingSertraline HCl 25 MG Tablet 3 tablets Orally Once a day Magnesium Oxide 400 MG Tablet 1 tablet with food Orally twice a day Vitamin B2 MiraLax 17 GM Packet 1 packet mixed with 8 ounces of fluid Orally Once a day Alendronate Sodium Meclizine HCl 25 MG Tablet 1 tablet as needed Orally every 12 hrs SUMAtriptan Succinate 100 MG Tablet 1 tablet as needed, may take second dose at least 2 hours after first dose up to 2 tablets per day as needed Orally Once a day Albuterol Sulfate (2.5 MG/3ML) 0.083% Nebulization Solution 3 mL as needed Inhalation every 6 hrs ProAir HFA 108 (90 Base) MCG/ACT Aerosol Solution 2 puffs Inhalation every 4 hrs As neededAcetaminophen 325 MG Tablet 1 tablet as needed Orally every 4 hrs Advair Diskus 250-50 MCG/DOSE Miscellaneous as directed Inhalation Albuterol Sulfate HFA 108 (90 Base) MCG/ACT Aerosol Solution 1 puff as needed Inhalation every 4 hrs Anbesol 10 % Gel 1 application as needed Mouth/Throat Four times a day Aspir-81 Atorvastatin Calcium 40 MG Tablet 1 tablet Orally twice a day Colace 100 MG Capsule 1 capsule as needed Orally Once a day Flonase Allergy Relief 50 MCG/ACT Suspension 1 spray in each nostril Nasally Once a day Fludrocortisone Acetate 0.1 MG Tablet 2 tablets Orally daily KlonoPIN 0.5 MG Tablet 1 tablet Orally twice a day Levothyroxine Sodium 25 MCG Tablet 1 tablet in the morning on an empty stomach Orally Once a day Melatonin 5 MG Tablet 1 tablet in the evening Orally Once a day Singulair 10 MG Tablet 1 tablet Orally Once a day Topiramate 100 MG Tablet 1 tablet Orally twice a day Vitamin D3 25 MCG (1000 UT) Capsule 1 capsule Orally Once a day Medication List reviewed and reconciled with the patientTaking Sertraline HCl 25 MG Tablet 3 tablets Orally Once a day Taking Magnesium Oxide 400 MG Tablet 1 tablet with food Orally twice a day Taking Vitamin B2 Taking MiraLax 17 GM Packet 1 packet mixed with 8 ounces of fluid Orally Once a day Taking Alendronate Sodium Taking Meclizine HCl 25 MG Tablet 1 tablet as needed Orally every 12 hrs Taking SUMAtriptan Succinate 100 MG Tablet 1 tablet as needed, may take second dose at least 2 hours after first dose up to 2 tablets per day as needed Orally Once a day Taking Albuterol Sulfate (2.5 MG/3ML) 0.083% Nebulization Solution 3 mL as needed Inhalation every 6 hrs Taking ProAir HFA 108 (90 Base) MCG/ACT Aerosol Solution 2 puffs Inhalation every 4 hrs As neededTaking Acetaminophen 325 MG Tablet 1 tablet as needed Orally every 4 hrs Taking Advair Diskus 250-50 MCG/DOSE Miscellaneous as directed Inhalation Taking Albuterol Sulfate HFA 108 (90 Base) MCG/ACT Aerosol Solution 1 puff as needed Inhalation every 4 hrs Taking Anbesol 10 % Gel 1 application as needed Mouth/Throat Four times a day Taking Aspir-81 Taking Atorvastatin Calcium 40 MG Tablet 1 tablet Orally twice a day Taking Colace 100 MG Capsule 1 capsule as needed Orally Once a day Taking Flonase Allergy Relief 50 MCG/ACT Suspension 1 spray in each nostril Nasally Once a day Taking Fludrocortisone Acetate 0.1 MG Tablet 2 tablets Orally daily Taking KlonoPIN 0.5 MG Tablet 1 tablet Orally twice a day Taking Levothyroxine Sodium 25 MCG Tablet 1 tablet in the morning on an empty stomach Orally Once a day Taking Melatonin 5 MG Tablet 1 tablet in the evening Orally Once a day Taking Singulair 10 MG Tablet 1 tablet Orally Once a day Taking Topiramate 100 MG Tablet 1 tablet Orally twice a day Taking Vitamin D3 25 MCG (1000 UT) Capsule 1 capsule Orally Once a day Medication List reviewed and reconciled with the patient * Allergies: C arbamazepineDiflunisalErythromycinHydrochlorothiazideLisinoprilPiroxicamTrimetho primBactrimDepakoteDilantinPenicillamineSulfacetamide SodiumCodeineFeldeneDolobidTEGretolTapeno[Allergies Verified] Objective: * Vitals: H R:66/min, BP:168/75mm Hg, Wt:115lbs, BMI:22.46Index, Ht: 60 in, Pain scale:01- 10, Ht-cm: 152.4 cm, Wt-k.16 kg. * Examination: G eneral Examination: GENERAL APPEARANCE: p leasant, in no acute distress. HEAD: a traumatic. EYES: n ormal. LUNGS: b reathing comfortably on room air. NEUROLOGIC: A lert and oriented. Speech fluent, answering questions appropriately. No observed facial asymmetry. No observed abnormal involuntary movements. Gait and station baseline.. PSYCH: m ood/affect full range. Assessment: * Assessment: 1. S leep disturbance, unspecified - G47.9 2 . F unctional neurological symptom disorder with attacks or seizures - F44.5 (Primary) 3 . S eizure disorder - G40.909 4 . M ood disorder - F39 5 . S yncope and collapse - R55 Plan: * Treatment: 2. M ood disorder Increase Sertraline HCl Tablet, 100 MG, 1 tablet, Orally, Once a day, 30 days, 30 Tablet, Refills 3. Notes: Increase Sertraline to 100 mg (4 of the 25 mg tablets). The next refill will be for the 100 mg tablets and you will take one of these per day. Clinical Notes: Patient reports at least partial benefit from sertraline for anxiety and depression. She is tolerating this medication well without any appreciated side effects. She was interested in a dose increase today. Will increase to 100 mg. Common side effects reviewed. Plan to follow-up again in 1 to 3 months, sooner as needed. * Procedure Codes: * Follow Up: 1 -3 months * * Sign off status: Completed Addendum: * true * Provider: Connie Madsen RN, ELENA MEYER Date: Generated for Printing/Faxing/eTransmitting on: 04:32 PM EDT History and Physical Notes * Examination Category Sub-Category Detail Notes Category Not es General Examination GENERAL APPEARANCE: pleasant, in n o acute distress HEAD: atraumatic EYES: normal LUNGS: breathing comfortabl y on room air NEUROLOGIC: Alert and oriented. Speech fluent, answering questions appropriately. No observed facial asymmetry. No observed abnormal involuntary movements. Gait and station baseline. PSYCH: mood/affect full ran ge
--- NOTE | 2025-03-17 13:36 | A.OFFPC_ITS ---
Vital Signs 03/17/25 13:39 Height 5 ft 1 in Weight 120 lb BMI 22.7 BP 140/70 H Blood Pressure Location Rt brachial Position Sitting Pulse 68 Pulse Source Pulse Oximeter Temp 97.9 F Temp Source Oral Pulse Oximetry (%) 97 Intake Visit Reasons: Ed follow up Emr Analyst Required: No Accompanied by: Self / Same As Patient Allergies Penicillins (PENICILLINS) Allergy (Intermediate, Verified 03/17/25 14:30) HIVES carbamazepine (From Tegretol) Allergy (Mild, Verified 03/17/25 14:30) HIVES diflunisal (From Dolobid) Allergy (Mild, Verified 03/17/25 14:30) HIVES erythromycin base (From Edwin-Tab) Allergy (Mild, Verified 03/17/25 14:30) HIVES phenytoin (From Dilantin) Allergy (Mild, Verified 03/17/25 14:30) RASH,HIVES piroxicam (From Feldene) Allergy (Mild, Verified 03/17/25 14:30) HIVES sulfamethoxazole (From Bactrim) Allergy (Mild, Verified 03/17/25 14:30) HIVES trimethoprim (From Bactrim) Allergy (Mild, Verified 03/17/25 14:30) HIVES valproic acid (From Depakene) Allergy (Mild, Verified 03/17/25 14:30) HIVES Depakene Allergy (Unknown, Verified 03/17/25 14:30) Rash hydrochlorothiazide (HYDROCHLOROTHIAZIDE) Allergy (Unknown, Verified 03/17/25 14:30) rash lisinopril (LISINOPRIL) Allergy (Unknown, Verified 03/17/25 14:30) rash galcanezumab-gnlm (From Emgality Pen) Allergy (Verified 03/17/25 14:30) headaches codeine (Codeine) Adverse Reaction (Intermediate, Verified 03/17/25 14:30) NAUSEA & VOMITING rash doxycycline Adverse Reaction (Verified 03/17/25 14:30) Stomach Upset ENVIRONMENTAL Allergy (Intermediate, Uncoded 03/17/25 14:30) ASTHMA,LOSES VOICE TAPE,PLASTIC Allergy (Intermediate, Uncoded 03/17/25 14:30) RASH surgical tape Allergy (Unknown, Uncoded 03/17/25 14:30) unknown Medication List - Last Reconciled 03/17/25 by DOMINGO MuñozP-BC albuterol sulfate 2.5 mg (3 mL) inhalation QID PRN 90 days albuterol sulfate 90 mcg/actuation 2 puffs PO Q6H PRN aspirin (Adult Low Dose Aspirin) 81 mg PO DAILY atorvastatin 80 mg PO BEDTIME cetirizine (All Day Allergy (cetirizine)) 10 mg PO DAILY PRN 30 days cholecalciferol (vitamin D3) 50 mcg PO DAILY 90 days clonazepam 0.5 mg PO BID 30 days docusate sodium 100 mg PO BEDTIME ezetimibe 10 mg PO DAILY fludrocortisone 0.1 mg PO DAILY 90 days fluticasone propion-salmeterol 250-50 mcg/dose (Wixela Inhub) 1 ea PO BID fluticasone propionate 50 mcg/actuation 1 spray intranasal DAILY 90 days folic acid 0.8 mg PO DAILY levothyroxine 25 mcg PO DAILY [[employer] unit As directed] magnesium oxide 400 mg PO BEDTIME 90 days meclizine 25 mg PO DAILY PRN melatonin 10 mg PO BEDTIME memantine 21 mg PO DAILY 30 days montelukast 10 mg PO DAILY riboflavin (vitamin B2) 400 mg PO DAILY 90 days risedronate 35 mg PO MCKEE@0900 sertraline 50 mg PO DAILY sumatriptan succinate 100 mg PO Q2H PRN 30 days topiramate 100 mg PO BID 90 days Tobacco use date assessed: 01/13/25 Fall risk assessment: No Falls in past year Last assessed Fall Risk: 03/17/25 Dental Screening Dental Screen Date: 01/13/25 HPI Ed follow up HPI Details Chief Complaint The patient presents with redness and swelling around an abrasion on her right upper extremity. History of Present Illness The patient is a 70-year-old female presenting with a hospital discharge follow- up for redness and swelling around an abrasion on her right upper extremity. She initially visited the emergency room on March 07 due to these symptoms, which developed following a fall approximately three days prior. Prior to her ER visit, she applied topical antibiotic ointment and used her own dressing on the abrasion. The patient declined oral antibiotics at urgent care due to concerns about potential allergic reactions. She was subsequently prescribed cefpodoxime to be taken twice daily for seven days, which she completed. During the follow-up, the patient reported no fever, chills, chest pain, or dyspnea, and she appeared in good spirits. Social History Health Maintenance Review of Systems - General: Denies fever or chills - Cardiovascular: Denies chest pain - Respiratory: Denies dyspnea Physical Exam General: Cooperative, healthy appearing, comfortable, no acute distress and well developed Orientation: Patient oriented x3 Limitations: No limitations Head: Normal to inspection Ears: Hearing grossly normal bilaterally Nose: Normal external nose present Face and sinus: Normal facial exam Eyes: Appearance normal, both eyes and all related structures Neck: Normal visual inspection and Yes full ROM Respiratory: Normal respiratory effort and able to speak in complete sentences. Clear to auscultation bilaterally Cardiovascular: Regular rate and rhythm. Normal S1 and S2 GI: Normal to inspection. Soft to palpation and nontender Skin: No rashes or lesions noted Neuro: Patient oriented x3 Extremities: Slight tenderness noted with palpation on the dorsal aspect of the right upper extremity, more dorsal distal, middle forearm. Area of ecchymosis that seems to be healing, no signs of infection, no drainage, no open lesions. Normal to inspection otherwise. Results Plan 1. Abrasion With Redness And Swelling On The Right Upper Extremity The patient was treated with cefpodoxime, a cephalosporin antibiotic, for seven days, which she completed without any adverse reactions. During the follow-up, the abrasion showed signs of healing with no infection, drainage, or open lesions noted. The patient reported no fever, chills, chest pain, or dyspnea, indicating a positive response to the treatment. Discussion Notes Patient Instructions [facility] Medical History Osteopenia Conversion disorder with attacks or seizures, acute episode, with psychological stressor Falls Anesthesia complication Liver lesion Ingrown toenail Elevated liver enzymes Concussion with loss of consciousness SOB (shortness of breath) Pain of both earlobes Dizziness New onset headache Otitis externa of both ears Acute effusion of right ear Dermatitis Myalgia Headache REM sleep behavior disorder Convulsion disorder COVID-19 Pre-syncope Dyspnea Chest pain Pneumonia Osteoporosis Screening for osteoporosis CKD (chronic kidney disease) Dyslipidemia Hypothyroid Hyperlipemia Ataxic gait Seizures Asthma Depression Conversion disorder HTN (hypertension) Muscle weakness Hypothyroid Surgical History H/O colonoscopy History of right knee surgery History of lobectomy of thyroid History of arthroscopy of right knee History of ankle surgery History of arthroscopy of left knee History of hysterectomy Family History Father CVD (cardiovascular disease) Stomach ulcer Cardiac arrest H/O heart bypass surgery Mother History of heart attack CHF (congestive heart failure) Lung cancer Diabetes mellitus High cholesterol HTN (hypertension) Hypothyroidism Sister Lung cancer Substance use disorder Brother Colitis Sister No problems noted. Sister Obstetric pulmonary blood clot embolism, antepartum Paternal Aunt Mental health disorder Substance use disorder Maternal Grandmother Mental health disorder Family/Other Substance use disorder Social History Household Members: Family Household Members Other:: brother, 2 cats Housing: House Are you a primary hospice home care coordinator to a significant other at home: No Do you presently have visiting nurse or other home services: No Alcohol intake: never Patient Tobacco Use Status: Never used Tobacco e-Cigarette/Vaping Use: Never Used Second Hand Smoke Exposure: No service: No Current occupational status: disabled Cognitive needs: No Hearing needs: No Vision needs: No Questionnaire PHQ-9 Over the last 2 weeks, how often have you been bothered by any of the following problems? 56366 - PHQ-9 Billing: Patient declined-do not bill Source: Developed by Drs. Mirza Corona, Jelena Walton, Arnoldo Gonzalez and colleagues, with an educational liu from [employer]. Thrive Questionnaire Date Thrive assessed: 12/18/24 I am a: Patient What is your living situation today?: I choose not to answer this question Within the past 12 months, did the food you bought not last and you didn't have the money to get more?: I choose not to answer this question Within the past 12 months, did you worry whether your food would run out before you got money to buy more?: I choose not to answer this question Do you have trouble paying for medicines?: I choose not to answer this question Do you have trouble getting transportation to medical appointments?: I choose not to answer this question Do you have trouble paying your heating and electricity bill?: I choose not to answer this question Do you have trouble taking care of your child, family member or friend?: I choose not to answer this question Do you have trouble with day-to-day activities such as bathing, preparing meals, shopping, managing finances, etc.?: I choose not to answer this question Are you currently unemployed and looking for a job?: I choose not to answer this question Are you interested in more education?: I choose not to answer this question Please select the resources that you would like help with: None Currently or been in a relationship where the following occur: I choose not to answer THRIVE Score: 0 AUDIT C Alcohol Use Questionnaire (AUDIT-C) 1. How often do you have a drink containing alcohol?: Never 3. How often do you have six or more drinks on one occasion?: Never Total Score: 0 KATHRINE-7 AMB Questionnaire KATHRINE-7 Date KATHRINE - 7 assessed: 12/18/24 (patient declined) Source: Developed by Drs. Mirza Corona, Jelena Walton, Arnoldo Gonzalez and colleagues, with an educational liu from [employer]. Physical exam (Primary Care) Vital Signs: Last Vital Signs Temp 97.9 F 03/17/25 13:39 Pulse 68 03/17/25 13:39 BP 140/70 H 03/17/25 13:39 Pulse Ox 97 03/17/25 13:39 BMI result Body Mass Index 22.7 Tobacco/Smoking Status: Tobacco use Status Tobacco use date assessed 01/13/25 03/17/25 13:38 Patient Tobacco Use Status Never used Tobacco 03/17/25 13:38 e-Cigarette/Vaping Use Never Used 03/17/25 13:38 Thrive Assessment: Date of Thrive Assessment Date Thrive assessed 12/18/24 03/17/25 13:38 Currently or been in a relationship where the following occur: I choose not to answer Coding Level of Care Code Est Pt Level 3 (19073) Diagnoses Cellulitis L03.90 Assessment & Plan Assessment & Plan (1) Cellulitis: Code(s): L03.90 - Cellulitis, unspecified Category: Medical Plan .
[2025-03-17 13:39] VITALS: BP 140/70; PULSE 68; TEMP 36.6; O2SAT 97; BMI 22.7
--- OUTSIDE RECORDS SUMMARY | 2025-03-17 16:31 | XMS_ITS | Clinical Summary ---
Author Organization [facility] ity Address [address] [place] [address] Care Team Providers Care Dry House Worker Name Role Phone Unavailable Primary Care Provider [...]
--- OUTSIDE RECORDS SUMMARY | 2025-03-17 16:31 | XMS_ITS | Clinical Summary ---
Author Organization [facility] Address [address] [place] [phone] Phone Care Team Providers Care Optometrist/Practice Owner Name Role Phone Case Duff MEDICINAL CHEMIST Primary Care Provider + Allergies Active Allergy [...] & B [facility] MEDICARE PART A & B [facility] MEDICARE REPLACEMENT REBA [place] [id number] MEDICARE PART A & B [facility] MEDICARE REPLACEMENT REBA [place] [id number] MEDICARE PART A & B O MEDICARE REPLACEMENT [facility] MEDICARE PART A & B [facility] MEDICARE REPLACEMENT MEDICARE PART A & B MEDICARE REPLACEMENT MEDICARE PART A & [place] [address] [place] [address] MEDICARE REPLACEMENT MEDICARE PART A & B [facility] MEDICARE REPLACEMENT MEDICARE PART A & B [facility] MEDICARE REPLACEMENT Advance Directives For more information, please contact: [phone] (9AM - 5PM [facility], Sunday-Sunday) Documents on File Type Date Recorded 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 It is not the complete legal health record.[facility]
--- OUTSIDE RECORDS SUMMARY | 2025-03-17 16:32 | XMS_ITS | Patient Health Record ---
Author Organization [facility] Address [address] [place] [address] Care Team Providers Care Aircraft Painter Name Role Phone MANDO TAMAYO Primary Care [...] e a day Active Mag Oxide-Vit D3-Turmeric [phone] MG-UNIT-MG as directed Orally Active ProAir HFA [...] Status Risk Notes Problem Colon cancer screening (339549687) Colon cancer screening (Z12.11) Active confirmed Problem Screening for malignant neoplasm of colon (579122979) Encounter for screening for malignant neoplasm of colon (Z12.11) Active confirmed Problem Fatty liver (939627332) Fatty liver (K76.0) Active confirmed Problem [id number] Long-term use of aspirin therapy (Z79.82) Active confirmed Problem Hepatic hemangioma (44922671) Hepatic hemangioma (D18.03) Active confirmed Vital Signs Temperature 96.9 degrees Fahrenheit 09/15/2024 Blood pressure diastolic 01 mm Hg 09/15/2024 Height 60 in 09/15/2024 Blood pressure systolic 001 mm Hg 09/15/2024 Weight 116 lbs 09/15/2024 BMI 22.65 kg/m2 09/15/2024 Encounters Encounter Location Date Provider Diagnosis [facility] [address] [place], [place] [id number] 11/25/2024 Philippe Price Jr Colon cancer screening Z12.11 and Personal history of adenomatous and serrated colon polyps Z86.0101 [facility] [address] [place] [address] 09/15/2024 Philippe Price Jr Fatty liver K76.0 ; Hepatic hemangioma D18.03 and Encounter for screening for malignant neoplasm of colon Z12.11 [facility] [address] [place] [address] 10/08/2024 Philippe Price Jr Assessments Encounter Date [...] Insured Coverage Start Date Coverage End Date [facility] [address] [place] [id number] SWATHI BANDA Self - patient is the [...]
--- OUTSIDE RECORDS SUMMARY | 2025-03-17 16:32 | XMS_ITS | Patient Health Record ---
Author Organization [facility] Address [address] [place] [address] Care Team Providers Care Fruit And Vegetable Classer Name Role Phone MadhaviCase snell Primary Care Provider UnavailSebastien Lewis Unavailable [phone] GABRIELLE BOO Unavailable [phone] Falguni Madsen Unavailable [phone] Allergies Allergen (clinical drug ingredient) Drug/Non Drug [...] Active Results Component Value Reference Range Notes Records Request Reviewed date:03/12/2025 11:06:53 AM Interpretation: Performing Lab: Notes/Report: Echocardiogram Reviewed date:01/16/2025 01:09:52 PM Interpretation: Performing Lab: Notes/Report: MR-Brain (C-) CPT 18562 Reviewed date:01/12/2025 10:12:33 AM Interpretation: Performing Lab: Notes/Report: Reason For Referral No Information Medications Medication SIG (Take, Route, Frequency, Duration) Notes Start Date End Date Status Alendronate Sodium A ctive Sertraline HCl 100 MG 1 tablet Orally On ce a day; Duration: 30 days Active Albuterol [...] Duration: 30 day(s) Active Vitamin B2 Active Aspir-81 Active MiraLax 17 GM 1 packet mixed with 8 ounces of fluid Orally Once a day Active Atorvastatin Calcium 40 MG 1 tablet Oral ly twice a day; Duration: 30 days Active Albuterol Sulfate (2.5 MG/3ML) 0.083% 3 mL as needed Inhalation every 6 hrs Active KlonoPIN 0.5 MG 1 tablet Orally a day Active ProAir HFA 108 (90 Base) MCG/ACT 2 puffs Inhalation every 4 hrs As needed Active Levothyroxine Sodium 25 MCG 1 tablet in the morning on an empty stomach Orally Once a day; Duration: 30 days Active Acetaminophen 325 MG 1 tablet as needed Orally every 4 hrs 01/22/2020 Active Melatonin 5 MG 1 tablet in the even ing Orally Once a day; Duration: 30 day(s) Active Advair Diskus 250-50 MCG/DOSE as directed Inhalation 01/22/2020 Activ e Singulair 10 MG 1 tablet Orally Once a day; Duration: 30 day(s) Active Colace 100 MG 1 capsule as needed Orally Once a day; Duration: 30 day(s) Active Meclizine HCl 25 MG 1 tablet [...] Problem Status W/U Status Risk Notes Problem Mood disorder (69916025) Mood disorder (F39) Active confirmed Problem Seizure disorder (854987355) Seizure disorder (G40.909) Active confirmed Problem Sleep disturbance (36139469) Sleep disturbance, unspecified (G47.9) Active confirmed Problem 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) Active confirmed Problem 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 confirmed Vital Signs Heart Rate 66 /min 03/13/2025 Blood pressure diastolic 75 mm Hg 03/13/2025 Height 60 in 03/13/2025 Blood pressure systolic 168 mm Hg 03/13/2025 Weight 115 lbs 03/13/2025 BMI 22.46 kg/m2 03/13/2025 Procedures Procedure Date Ordered Date Performed Result Body Sit e Obtain prior medical records 01/16/2025 N/A Referral 01/16/2025 01/19/2025 N/A Encounters Encounter Location Date Provider Diagnosis [address] [address] 11/20/2024 Sebastien Myrick 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 ; Sleep disturbance, unspecified G47.9 ; Seizure disorder G40.909 and Mood disorder F39 [facility] [address] [address] 01/16/2025 Falguni Madsen 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 ; Sleep disturbance, unspecified G47.9 ; Seizure disorder G40.909 ; Mood disorder F39 and Syncope and collapse R55 [address] [address] 02/18/2025 GABRIELLE BOO 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 ; Sleep disturbance, unspecified G47.9 ; Seizure disorder G40.909 ; Mood disorder F39 ; Syncope and collapse R55 and Functional neurological symptom disorder with mixed symptoms F44.[address] [address] 03/13/2025 Falguni Madsen Sleep disturbance, unspecified G47.9 ; Functional neurological symptom disorder with attacks or seizures F44.5 ; Seizure disorder G40.909 ; Mood disorder F39 and Syncope and collapse R55 [address] [address] 09/02/2024 GABRIELLE BOO [address] [address] 09/29/[address] [address] 12/26/[address] [address] 12/26/[address] [address] 01/16/2025 [facility] Assessments Encounter Date Diagnosis (ICD Code) [...] Dr. Boo, and FND specialist here at [facility], has availability to also evaluate and [...] 02/18/2025 Sleep disturbance, unspecified (ICD-10 - G47.9) 03/13/2025 Sleep disturbance, unspecified (ICD-10 - G47.9) [...] Arceo (Author) Recommended resources: - FNDhope.org - [place] resources- GOOD for patients and families- handouts, videos explaining the neurobio of FND https://med.[email or web address]/psychiatry/ patient_care/fnd.h [facility] Website by Dr. Anil Joe for ALL info regarding FND and its variants- reliable resource and in numerous languages- https://www.neuros ymptoms.org/en_[place]/ Reviewed recent EEG which showed no epileptiform activity during seizure event, suggesting these are nonepileptic seizures. Would not advise starting seizure medication as result. We reviewed diagnosis of functional neurologic disorder. Provided patient with resources as discussed by Dr. Boo at last visit. Recommended she continue to work closely with her therapist. 03/13/2025 Seizure disorder (ICD-10 - G40.909) 02/18/2025 Seizure disorder (ICD-10 - G40.909) awaiting [...] daily) 02/18/2025 Mood disorder (ICD-10 - F39) 03/13/2025 Mood disorder (ICD-10 - F39) Increase [...] 03/13/2025 Syncope and collapse (ICD-10 - R55) 02/18/2025 Syncope and collapse (ICD-10 - R55) she is undergoing workup for this- registered nurse cardiac, EEG pending results. Recommended echo to complete [...] evidence of infarct. She is already wearing registered nurse cardiac and has EEG ordered. Recommended echo to [...] (113 books) by Dano Arrington , Nicole Mattson et al. Workbook patient can do ON THEIR OWN- Overcoming Functional Neurological Symptoms: A Five Areas Approach 1st Editionby Lucho Walton (Author), Pancho Pearson (Author), Yeimy Damon (Author), Dino Sherwood (Author), Gatito Crouch (Author), Jerald Arceo (Author) [place] resources- GOOD for patients and families- handouts, videos explaining the neurobio of FND https://med.[facility]/psychiatry/ patient_care/fnd.h [facility] website by Dr. Anil Joe for ALL [...] referring to and communicating with other health intensive care specialist, documenting clinical information in the record, counseling, providing instructions and answering the patient's questions. The patient understands and agrees with the plan of care outlined. This note was generated with voice recognition software. Please excuse any errors which may have been overlooked during review. Sometimes these errors may affect the content or meaning of a given sentence. If any questions, please contact the [facility] office at [phone]. Plan Of Treatment Pending Test Test Name Order Date Obtain prior medical records 01/16/2025 Next Appt Details Provider Name:Falguni Ori moody, 05/13/2025 10:30:00 AM, [address], [address], [place], [address], Insurance Providers Payer Name Payer Address Payer Phone Subscriber Number Group Number Insured Name Patient Relationship to Insured Coverage Start Date Coverage End Date [employer] [address] [place] [address] [id number] Sarahy Neves Self - patient is the insured MEDICARE [address] [place], [place] [id number] [phone] [id number] Sarahy Neves Marie Self - patient is the insured [employer] [address] [place] [address] [id number] Humbertomatthew Leida Self - patient is the insured Medical [...]
--- OUTSIDE RECORDS SUMMARY | 2025-04-11 20:00 | XMS_ITS | Clinical Summary ---
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 12-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:00: 00 DEPRESSION, UNSPECIFIED Active 12-08 00:00: 00 Allergies, Adverse Reactions, Alerts Allergy Name Allergy Type Status Severity Reaction(s) Onset Date Inactive Date Treating Clinician Comments CODEINE Propensity to adverse reactions Active 12-15 19:33: 31 DOXYCYCLINE Propensity to adverse reactions Active 12-15 19:33: 41 HYDROCHLOROT HIAZIDE Propensity to adverse reactions Active 12-15 19:33: 16 LISINOPRIL Propensity to adverse reactions Active 12-15 19:33: 25 PIROXICAM Propensity to adverse reactions Active 12-15 19:32: 16 VALPROIC ACID Propensity to adverse reactions Active 12-15 19:32: 54 CARBAMAZEPIN E Propensity to adverse reactions Active 12-15 19:31: 19 SULFAMETHOXA ZOLE Propensity to adverse reactions Active 12-15 19:32: 30 PHENYTOIN Propensity to adverse reactions Active 12-15 19:31: 56 TRIMETHOPRIM Propensity to adverse reactions Active 12-15 19:32: 44 DEPAKENE Propensity to adverse reactions Active 12-15 19:33: 03 DIFLUNISAL Propensity to adverse reactions Active 12-15 19:31: 30 PENICILLIN Propensity to adverse reactions Active 12-15 19:31: 09 ADHERENT TAPE Propensity to adverse reactions Active 12-16 07:27: 44 ERYTHROMYCIN BACTRIM Propensity to adverse reactions Active 12-15 19:31: 45 Medications Ordered Medication Name Filled Medication Name Start Date Stop Date Current Medication? Ordering Clinician Indication Dosage Frequency Signature (SIG) Comments Components Aspirin Childrens 81 mg chewable tablet 12-14 00:00: 00 Yes [id number] 1 tablet DAILY 1 tablet DAILY (route: oral) Med Classific ation: Hematolog ical Agents atorvastati n 80 mg tablet 12-14 00:00: 00 Yes [id number] 1 tablet BEDTIME 1 tablet BEDTIME (route: oral) Med Classific ation: Cardiovas cular Therapy Agents cetirizine 10 mg tablet 12-14 00:00: 00 Yes [id number] 1 tablet DAILY 1 tablet DAILY (route: oral) Med Classific ation: Respirato ry Therapy Agents clonazepam 0.5 mg tablet 12-14 00:00: 00 Yes [id number] PRN FOR ANXIETY/MINH TATiON 1 tablet 2 TIMES DAILY 1 tablet 2 TIMES DAILY (route: oral) Med Classific ation: Central Nervous System Agents docusate sodium 100 mg capsule 12-14 00:00: 00 Yes [id number] 1 capsule BEDTIME 1 capsule BEDTIME (route: oral) Med Classific ation: Gastroint estinal Therapy Agents ezetimibe 10 mg tablet 12-14 00:00: 00 Yes [id number] 1 tablet DAILY 1 tablet DAILY (route: oral) Med Classific ation: Cardiovas cular Therapy Agents fludrocorti sone 0.1 mg tablet 12-14 00:00: 00 Yes [id number] 1 tablet DAILY 1 tablet DAILY (route: oral) Med Classific ation: Endocrine folic acid 800 mcg tablet 12-14 00:00: 00 Yes [id number] 1 tablet DAILY 1 tablet DAILY (route: oral) Med Classific ation: Electroly te Balance-N utritiona l Products levothyroxi ne 25 mcg tablet 12-14 00:00: 00 Yes [id number] 1 tablet DAILY 1 tablet DAILY (route: oral) Med Classific ation: Endocrine magnesium 400 mg (as magnesium oxide) tablet 12-14 00:00: 00 Yes [id number] 1 tablet BEDTIME 1 tablet BEDTIME (route: oral) Med Classific ation: Electroly te Balance-N utritiona l Products melatonin 10 mg tablet 12-14 00:00: 00 Yes [id number] 1 tablet BEDTIME 1 tablet BEDTIME (route: oral) Med Classific ation: Central Nervous System Agents montelukast 10 mg tablet 12-14 00:00: 00 Yes [id number] 1 tablet BEDTIME 1 tablet BEDTIME (route: oral) Med Classific ation: Respirato ry Therapy Agents sertraline 25 mg tablet 12-14 00:00: 00 01-19 23:59 :00 No [id number] 2 tablet DAILY 2 tablet DAILY (route: oral) Med Classific ation: Central Nervous System Agents sumatriptan 100 mg tablet 12-14 00:00: 00 Yes [id number] 1 tablet DAILY 1 tablet DAILY (route: oral) Med Classific ation: Central Nervous System Agents topiramate 100 mg tablet 12-14 00:00: 00 Yes [id number] 1 tablet 2 TIMES DAILY 1 tablet 2 TIMES DAILY (route: oral) Med Classific ation: Central Nervous System Agents sertraline 25 mg tablet 8-11 00:00: 00 Yes [id number] 3 tablet EVERY AM 3 tablet EVERY AM (route: oral) Med Classific ation: Central Nervous System Agents memantine 7 mg capsule sprinkle,ex tended release 24hr 9-04 00:00: 00 02-16 23:59 :00 No [id number] 1 capsule DAILY 1 capsule DAILY (route: oral) Med Classific ation: Cognitive Disorder Therapy fluticasone propionate 50 mcg/actuati on nasal spray,suspe nsion 9-08 00:00: 00 Yes [id number] 1 spray DAILY 1 spray DAILY (route: nasal) Med Classific ation: Respirato ry Therapy Agents memantine 14 mg capsule sprinkle,ex tended release 24hr 02-16 00:00: 00 Yes [id number] 1 capsule DAILY 1 capsule DAILY (route: oral) Med Classific ation: Cognitive Disorder Therapy cefpodoxime 200 mg tablet 03-09 00:00: 00 Yes [id number] 1 tablet 2 TIMES DAILY 1 tablet 2 TIMES DAILY (route: oral) Med Classific ation: Anti-Infe ctive Agents Vital Signs Vital Name Observation Time Observation Value Commen ts Pulse 2025-03-09 09:25:00.000 73 /min Pulse 2025-03-06 09:57:00.000 74 /min Pulse 2025-03-04 09:49:00.000 80 /min Pulse 2025-03-02 13:17:00.000 78 /min Pulse 2025-02-23 09:48:00.000 71 /min Pulse 2025-02-16 10:08:00.000 76 /min Pulse 2025-02-13 09:55:00.000 82 /min O2 Saturation (%) 2025-03-09 09:25:00.000 99 % O2 Saturation (%) 2025-03-06 09:57:00.000 98 % O2 Saturation (%) 2025-03-02 13:17:00.000 95 % O2 Saturation (%) 2025-02-23 09:48:00.000 99 % O2 Saturation (%) 2025-02-16 10:08:00.000 97 % O2 Saturation (%) 2025-02-13 09:55:00.000 97 % Respirations 2025-03-09 09:25:00.000 20 /min Respirations 2025-03-06 09:57:00.000 20 /min Respirations 2025-03-04 09:49:00.000 20 /min Respirations 2025-03-02 13:17:00.000 20 /min Respirations 2025-02-23 09:48:00.000 20 /min Respirations 2025-02-16 10:08:00.000 20 /min Respirations 2025-02-13 09:55:00.000 20 /min Systolic Blood Pressure 2025-03-09 09:25:00.000 140 mm [Hg] Systolic Blood Pressure 2025-03-06 09:57:00.000 123 mm [Hg] Systolic Blood Pressure 2025-03-02 13:17:00.000 124 mm [Hg] Systolic Blood Pressure 2025-02-23 09:48:00.000 128 mm [Hg] Systolic Blood Pressure 2025-02-16 10:08:00.000 100 mm [Hg] Systolic Blood Pressure 2025-02-13 09:55:00.000 120 mm [Hg] Diastolic Blood Pressure 2025-03-09 09:25:00.000 72 mm [Hg] Diastolic Blood Pressure 2025-03-06 09:57:00.000 85 mm [Hg] Diastolic Blood Pressure 2025-03-02 13:17:00.000 70 mm [Hg] Diastolic Blood Pressure 2025-02-23 09:48:00.000 78 mm [Hg] Diastolic Blood Pressure 2025-02-16 10:08:00.000 58 mm [Hg] Diastolic Blood Pressure 2025-02-13 09:55:00.000 60 mm [Hg] Plan of Treatment Planned Activity [...] AWARENESS FOR SAFETY AND WILL NOTIFY CLINICAL ASSISTANT FARM OPERATIONS MANAGER AND PHYSICIAN/PROVIDER WITH ANY CHANGE IN CONDITION. [code = SKILLED NURSE WILL MAINTAIN SITUATIONAL AWARENESS FOR SAFETY AND WILL NOTIFY CLINICAL ASSISTANT FARM OPERATIONS MANAGER AND PHYSICIAN/PROVIDER WITH ANY CHANGE IN CONDITION.] Future Scheduled Test SKILLED NU RSE TO O/A OF PATIENTS MENTAL/BEHAVIORAL STATUS, ASSESS VITAL SIGNS 1WK8, SNV 3WK8 ALLOW 2 PRNS FOR MEDICATION MANAGEMENT. [code = SKILLED NURSE TO O/A OF PATIENTS MENTAL/BEHAVIORAL STATUS, ASSESS VITAL SIGNS 1WK8, SNV 3WK8 ALLOW 2 PRNS FOR MEDICATION MANAGEMENT.] Future Scheduled Test SKILLED NU RSE FOR O/A OF GENERAL HEALTH STATUS OF PAIN, CARDIAC, RESPIRATORY, GASTROINTESTINAL, GENITOURINARY, SKIN, NEUROLOGIC, ENDOCRINE SYSTEMS TO IDENTIFY CHANGES ASSOCIATED WITH EXACERBATION FOR EARLY INTERVENTION OF COMPLICATIONS WEEKKLY [code = SKILLED NURSE FOR O/A OF GENERAL HEALTH STATUS OF PAIN, CARDIAC, RESPIRATORY, GASTROINTESTINAL, GENITOURINARY, SKIN, NEUROLOGIC, ENDOCRINE SYSTEMS TO IDENTIFY CHANGES ASSOCIATED WITH EXACERBATION FOR EARLY INTERVENTION OF COMPLICATIONS WEEKKLY] Future Scheduled Test SKILLED NU RSE TO [...] PROBLEMS.] Future Scheduled Test SKILLED NU RSE TO PRE-POUR MEDICATION PER MEDICATION LIST WEEKLY [code = SKILLED NURSE TO PRE-POUR MEDICATION PER MEDICATION LIST WEEKLY] Future Scheduled Test SKILLED NU RSE FOR [...] INTERVENTION.] Future Scheduled Test SKILLED NU RSE TO ASSESS PATIENT S PSYCHOSOCIAL STATUS TO IDENTIFY POTENTIAL ISSUES THAT MAY COMPLICATE THE PROVISION OF THE PLAN OF CARE INCLUDING THE PATIENT S ABILITY TO ACCESS COMMUNITY RESOURCES AND PSYCHOSOCIAL SUPPORT SERVICES. [code = SKILLED NURSE TO ASSESS PATIENT S PSYCHOSOCIAL STATUS TO IDENTIFY POTENTIAL ISSUES THAT MAY COMPLICATE THE PROVISION OF THE PLAN OF CARE INCLUDING THE PATIENT S ABILITY TO ACCESS COMMUNITY RESOURCES AND PSYCHOSOCIAL SUPPORT SERVICES.] Future Scheduled Test SKILLED NU RSE MAY PICKUP AND TRANSPORT MEDICATIONS [code = SKILLED NURSE MAY PICKUP AND TRANSPORT MEDICATIONS] Future Scheduled Test SKILLED NU RSE TO INSTRUCT ON SAFETY MEASURES TO PREVENT INJURY SECONDARY TO SEIZURE DISORDER/IMPAIRED NEUROLOGICAL STATUS. [code = SKILLED NURSE TO INSTRUCT ON SAFETY MEASURES TO PREVENT INJURY SECONDARY TO SEIZURE DISORDER/IMPAIRED NEUROLOGICAL STATUS.] Goal Patient Goal - T O STAY OUT OF THE HOSPITAL. Goal 2025-02-11 Patient Goal - T O STAY OUT OF THE HOSPITAL. Goal Provider Goal - A PLAN OF CARE WILL BE ESTABLISHED THAT MEETS PATIENT'S MCC NEEDS AND INCLUDES PATIENT GOAL FOR HOME HEALTH. Goal Provider Goal - PATIENT WILL REMAIN SAFE IN THE COMMUNITY AND WILL BE FREE OF DANGER TO SELF AND OTHERS THROUGHOUT THE CERTIFICATION PERIOD. Goal Provider Goal - ALTERED [...] PERIOD. Goal Provider Goal - PATIENT WILL COMPLY WITH MEDICATION WHEN SKILLED NURSE PRE-POURS MEDICATION THROUGHOUT CERTIFICATION PERIOD. Goal Provider Goal - PATIENT WILL REMAIN SAFE WITHOUT DECOMPENSATION IN DEPRESSIVE CONDITION, WHILE MAINTAINING OPTIMAL LEVEL OF MENTAL HEALTH AND WELL BEING THROUGHOUT CERTIFICATION PERIOD. Goal Provider Goal - PSYCHOSOCIAL NEEDS WILL BE IDENTIFIED AND PLAN IMPLEMENTED TO MINIMIZE RISK THROUGHOUT CERTIFICATION PERIOD. Goal Provider Goal - SKILLED NURSE PICKED UP AND TRANSPORTED MEDICATIONS FOR SAFETY. Goal Provider Goal - PATIENT/CAREGIVER WILL VERBALIZE/DEMONSTRATE SEIZURE PRECAUTIONS AND CARE OF PATIENT TO PROMOTE SAFETY AND PREVENT INJURY BY THE END OF THE CERTIFICATION PERIOD. Encounters Start Date/Time End Date/Time Encounter Type Admission Type Attending [facility] Care Department Encounter ID Discharge Date Discharge Status Discharge Condition Discharge Reason Percent Goals Met 2025-02-12 00:00:00 2025-04-12 00:00:00 Outpatient RECERTIFIC FRED MCARTHUR [facility] [id number] 81.82
== END 2025-03-17 15:15 | disposition home or self-care (01) ==
LOC: HO.HMCC 13:28
PROVIDERS: PCP Nurse Practitioner Family; Visit Provider Nurse Practitioner Family
DX: L03.90 Cellulitis, unspecified (principal)

== ENCOUNTER → 2025-03-17 13:28 | Outpatient (BNVA) | payer OTHER, SELFPAY | PROVIDERS: PCP Nurse Practitioner Family; Visit Provider Nurse Practitioner Family | DX: S40.811D Abrasion of right upper arm, subsequent encounter (principal); L03.113 Cellulitis of right upper limb; X58.XXXD Exposure to other specified factors, subsequent encounter | CPT/HCPCS: 99212 ==

== ENCOUNTER 2025-03-26 13:43 | Outpatient (AMB) | payer OTHER, SELFPAY ==
--- OUTSIDE RECORDS SUMMARY | 2024-10-10 06:50 | XMS_ITS ---
Author Organization [facility] Address [address] [place] [address] Care Team Providers Care Extrusion Technician Name Role Phone MANDO TAMAYO Primary Care Provider Philippe Tsai Jr [phone] REASON FOR VISIT screening Encounters Encounter Location Date Provider Diagnosis [facility] [place] [address] [place] [id number] 10/10/2024 Philippe Price Jr Plan Of Treatment No Information Progress Notes * GENESISMaryam SWATHI BORJASFARHADOB: [birth year] (70 yo F)Acc No.[id number]:10/10/2024 COLON WITH MAC Patient: SWATHI RICHARDS Provider: Allison Price MD :1955 A ge:69 Y S ex:Female Date:10/10/2024 Address:[facility] [id number] Pcp:MANDO TAMAYO Subjective: * Chief Complaints: * [...] 10/10/2024 Generated for Printi ng/Faxing/eTransmitting on: 1 05:29 PM EDT
--- OUTSIDE RECORDS SUMMARY | 2024-11-25 07:50 | XMS_ITS ---
Author Organization [facility] Address [address] [place] [phone] Care Team Providers Care Dowel Machine Operator Name Role Phone MANDO TAMAYO Primary Care Provider Philippe Tsai Jr REASON FOR VISIT screening Encounters Encounter Location Date Provider Diagnosis [facility] [place] [address] [place] [id number] 11/25/2024 Philippe Price Jr Colon cancer screening [...] * SWATHI BANDAOB: [birth year] (70 yo F)Acc No.[id number]:11/25/2024 COLON WITH MAC Patient: Allison NOWAK DWAIN Provider: Allison Price MD :1955 A ge:69 Y S ex:Female Date:11/25/2024 Address:[address] [place], [place] [id number] Pcp:MANDO TAMAYO Subjective: * Chief Complaints: * [...] 11/25/2024 Generated for Elisa barbosa/Silas/Matiitting on: 1 05:29 PM EDT
--- OUTSIDE RECORDS SUMMARY | 2025-01-08 11:30 | XMS_ITS ---
Author Organization [employer] Address [address] [facility] [address] [place] [address] Care Team Providers Care Fleet Director Name Role Phone Case Duff Primary Care Provider UnavailSebastien Lewis Unavailable [phone] Falguni Madsen Unavailable [phone] REASON FOR VISIT pt called and she is still in [place] Medications Medication SIG (Take, Route, Frequency, Duration) [...] Active Encounters Encounter Location Date Provider Diagnosis [address] [address] 01/08/2025 Falguni Madsen Plan Of Treatment Next Appt Details Provider Name:Falguni moody, 05/13/2025 10:30:00 AM, [address] [place] [address], [phone], Progress Notes * Sarahy NEVES MDOB:[birth year] (70 yo F)Acc No.[id number]:01/08/2025 Progress Note Patient: Sarahy RICHARDS Provider: Connie Madsen, RN, AIRPORT REFUELING HANDLER-C, CARDIOVASCULAR DISEASE SPECIALIST :1955 A ge:70 Y S ex:Female Date:01/08/2025 Address:[address] [place] [address] [id number] Pcp:Case Duff Subjective: * Chief Complaints: * 1 . pt called and she is still in [place]. 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 Patient has been out of facility for several years and has been referred back to FLOOR PLAN ADJUSTER for specialized management of FND. Patient does [...] Electronic signature of MITCH Schmitt CNP on 03/26/2025 at 05:28 PM EDT Sign off status: Pending * Provider: Connie Madsen RN, ELENA MEYER Date: 0 01/08/2025 Generated for Printing/Faxing/eTransmitting on: 05:28 PM EDT
--- OUTSIDE RECORDS SUMMARY | 2025-02-20 07:30 | XMS_ITS ---
Author Organization [facility] [employer] [facility] Address [address] [place] [address] Care Team Providers Care Optometry Assistant Name Role Phone Case Duff Primary Care Provider Sebastien Byrnes Unavailable [phone] Falguni Madsen Unavailable [phone] REASON FOR VISIT 1-2 month f/u- f/u on seizures, echocardiogram Encounters Encounter Location Date Provider Diagnosis [facility] [employer] [address] [address] 02/20/2025 Falguni Madsen Plan Of Treatment Next Appt Details Provider Name:Falguni moody, 05/13/2025 10:30:00 AM, [address] [place] [address], [phone], Progress Notes * Sarahy NEVES MDOB:[birth year] (70 yo F)Acc No.[id number]:02/20/2025 Progress Note Patient: Sarahy RICHARDS Provider: Connie Madsen RN, ETYMOLOGY PROFESSOR-C, BELL VALET :1955 A ge:70 Y S ex:Female Date:02/20/2025 Address:[address] [place] [address] [place] Pcp:Case Duff Subjective: * Chief Complaints: * 1 . 1-2 month f/u- f/u on seizures, echocardiogram. * Medical History: Objective: * Vitals: Assessment: Plan: * Treatment: * * Electronic signature of MITCH Schmitt CNP on 03/26/2025 at 05:28 PM EDT Sign off status: Pending * Provider: Connie Madsen RN, ELENA MEYER Date: 0 02/20/2025 Generated for Printing/Faxing/eTransmitting on: 1 05:28 PM EDT
--- NOTE | 2025-03-26 14:07 | MHC.OFFVIS ---
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[place]/Ventricular premature depolarization Intake Note: New patient dx ventricular premature depolarization on ekg Event Management Consultant Required: No Allergies Penicillins (PENICILLINS) Allergy (Intermediate, Verified 03/17/25 14:30) HIVES carbamazepine (From Tegretol) Allergy (Mild, Verified 03/17/25 14:30) HIVES diflunisal (From Dolobid) Allergy (Mild, Verified 03/17/25 14:30) HIVES erythromycin base (From Edwin-Tab) Allergy (Mild, Verified 03/17/25 14:30) HIVES phenytoin (From Dilantin) Allergy (Mild, Verified 03/17/25 14:30) RASH,HIVES piroxicam (From Feldene) Allergy (Mild, Verified 03/17/25 14:30) HIVES sulfamethoxazole (From Bactrim) Allergy (Mild, Verified 03/17/25 14:30) HIVES trimethoprim (From Bactrim) Allergy (Mild, Verified 03/17/25 14:30) HIVES valproic acid (From Depakene) Allergy (Mild, Verified 03/17/25 14:30) HIVES Depakene Allergy (Unknown, Verified 03/17/25 14:30) Rash hydrochlorothiazide (HYDROCHLOROTHIAZIDE) Allergy (Unknown, Verified 03/17/25 14:30) rash lisinopril (LISINOPRIL) Allergy (Unknown, Verified 03/17/25 14:30) rash galcanezumab-gnlm (From Emgality Pen) Allergy (Verified 03/17/25 14:30) headaches codeine (Codeine) Adverse Reaction (Intermediate, Verified 03/17/25 14:30) NAUSEA & VOMITING rash doxycycline Adverse Reaction (Verified 03/17/25 14:30) Stomach Upset ENVIRONMENTAL Allergy (Intermediate, Uncoded 03/17/25 14:30) ASTHMA,LOSES VOICE TAPE,PLASTIC Allergy (Intermediate, Uncoded 03/17/25 14:30) RASH surgical tape Allergy (Unknown, Uncoded 03/17/25 14:30) unknown Medication List - Last Reconciled 03/26/25 by Foreign Butler MD albuterol sulfate 2.5 mg (3 mL) inhalation QID PRN 90 days albuterol sulfate 90 mcg/actuation 2 puffs PO Q6H PRN aspirin (Adult Low Dose Aspirin) 81 mg PO DAILY atorvastatin 80 mg PO BEDTIME cetirizine (All Day Allergy (cetirizine)) 10 mg PO DAILY PRN 30 days cholecalciferol (vitamin D3) 50 mcg PO DAILY 90 days clonazepam 0.5 mg PO BID 30 days docusate sodium 100 mg PO BEDTIME ezetimibe 10 mg PO DAILY fludrocortisone 0.1 mg PO DAILY 90 days fluticasone propion-salmeterol 250-50 mcg/dose (Wixela Inhub) 1 ea PO BID fluticasone propionate 50 mcg/actuation 1 spray intranasal DAILY 90 days folic acid 0.8 mg PO DAILY levothyroxine 25 mcg PO DAILY [[facility] As directed] magnesium oxide 400 mg PO BEDTIME 90 days meclizine 25 mg PO DAILY PRN melatonin 10 mg PO BEDTIME memantine 21 mg PO DAILY 30 days montelukast 10 mg PO DAILY riboflavin (vitamin B2) 400 mg PO DAILY 90 days risedronate 35 mg PO MCKEE@0900 sertraline 100 mg PO DAILY sumatriptan succinate 100 mg PO Q2H PRN 30 days topiramate 100 mg PO BID 90 days HPI Comments Details: Sarahy Villatoro was referred here for findings of PVCs on cardiac event monitor. Patient is very poor historian and was not able to provide much history, she has difficulty expressing herself as per her due to functional neurologic issues. History was then obtained with help of her brother on the phone who could not be present here in person. Patient with prior conversion disorder diagnose as. She has chronic migraine as well as anxiety as per the brother. She has had these episodes of altered consciousness as per the brother happens in any position including lying down position. She has slurred words and then has lays look in her eyes and then she loses consciousness for several minutes. She has had a workup from neurologic perspective and she has no history of seizure disorder. For this she underwent a event monitor which showed frequent PVCs and runs of tachycardia which has suspected to be SVT with aberrancy. She had no symptoms when she was wearing event monitor. She is not sure why she is referred here. Brother says she was referred here because of these findings of frequent PVCs on the event monitor. Echocardiogram done subsequently showed low normal LV EF without any significant wall motion abnormalities and/or any significant valvular abnormalities. Patient denies any orthostatic blood pressure changes. However she is on fludrocortisone. She says she has low blood pressure issues. She has no orthopnea, PND, leg edema. No exertional chest pain. Walks with the help of a walker. [facility] Medical History Osteopenia Conversion disorder with attacks or seizures, acute episode, with psychological stressor Falls Anesthesia complication Liver lesion Ingrown toenail Elevated liver enzymes Concussion with loss of consciousness SOB (shortness of breath) Pain of both earlobes Dizziness New onset headache Otitis externa of both ears Acute effusion of right ear Dermatitis Myalgia Headache REM sleep behavior disorder Convulsion disorder COVID-19 Pre-syncope Dyspnea Chest pain Pneumonia Osteoporosis Screening for osteoporosis CKD (chronic kidney disease) Dyslipidemia Hypothyroid Hyperlipemia Ataxic gait Seizures Asthma Depression Conversion disorder HTN (hypertension) Muscle weakness Hypothyroid Surgical History H/O colonoscopy History of right knee surgery History of lobectomy of thyroid History of arthroscopy of right knee History of ankle surgery History of arthroscopy of left knee History of hysterectomy Family History Father CVD (cardiovascular disease) Stomach ulcer Cardiac arrest H/O heart bypass surgery Mother History of heart attack CHF (congestive heart failure) Lung cancer Diabetes mellitus High cholesterol HTN (hypertension) Hypothyroidism Sister Lung cancer Substance use disorder Brother Colitis Sister No problems noted. Sister Obstetric pulmonary blood clot embolism, antepartum Paternal Aunt Mental health disorder Substance use disorder Maternal Grandmother Mental health disorder Family/Other Substance use disorder Social History Household Members: Family Household Members Other:: brother, 2 cats Housing: House Are you a primary neonatal intensive care nurse to a significant other at home: No Do you presently have visiting nurse or other home services: No Alcohol intake: never Patient Tobacco Use Status: Never used Tobacco e-Cigarette/Vaping Use: Never Used Second Hand Smoke Exposure: No service: No Current occupational status: disabled Cognitive needs: No Hearing needs: No Vision needs: No Review of Systems Const Reports chills, Reports daytime sleepiness, Reports fatigue, Denies fever(s), Reports frequent falls, Denies poor appetite, Denies snoring, Reports weakness, Denies weight gain and Reports weight loss Eyes Reports loss of vision ENT Reports dizziness and Reports hearing loss Card Reports chest pain, Denies claudication, Denies leg edema, Reports lightheadedness, Reports palpitations, Denies dyspnea, Denies dyspnea on exertion and Denies orthopnea Resp Denies cough, Denies excessive phlegm production, Denies dyspnea, Denies dyspnea on exertion, Denies snoring and Denies wheezing GI Reports abdominal pain, Denies hematochezia, Reports change in bowel habits, Denies nausea and Denies vomiting Denies urinary frequency and Denies dysuria Musc Denies arthralgias, Denies muscle weakness and Denies numbness Skin/Breast Denies nail changes and Denies rash Neuro Denies Abnormal speech present, Reports dizziness, Reports frequent falls, Reports loss of vision, Reports memory loss, Denies numbness and Reports weakness Psych Reports depression and Reports memory loss Endo Reports fatigue and Reports palpitations Sherman/Lymph Reports easy bruising and Reports other (anemia) Aller/Immun Denies wheezing Physical Exam Vital Signs: Last Vital Signs Pulse 78 03/26/25 14:09 BP 116/64 03/26/25 14:09 BMI result Body Mass Index 22.1 Const General: cooperative, comfortable, alert and awake Nutritional Appearance: thin Orientation/consciousness: patient oriented x3 HEENT Head: Yes normocephalic and Yes atraumatic Neck Neck: Yes trachea midline, Yes supple and Yes no JVD Resp Effort & Inspection: normal respiratory effort Auscultation: clear to auscultation bilaterally Cardio Jugular venous distension: no JVD Palpation: normal PMI Rate: regular rate Rhythm: regular rhythm Heart sounds: S1 normal heart sound present, S2 normal heart sound present, no click, no gallops, no murmurs and no rubs GI Auscultation: normal bowel sounds Skin General skin exam: no rashes or lesions noted Neuro General: patient oriented x3 and no focal motor deficits Speech: No Abnormal speech present Extrem General: Yes no clubbing, cyanosis or edema Office Procedures EKG Details: EKGs shows normal sinus rhythm with suggestive of right atrial enlargement 75841-Tysbjgxeissucvjeg, Complete Assessment & Plan Assessment & Plan (1) Frequent PVCs: Code(s): I49.3 - Ventricular premature depolarization Category: Medical Plan: Patient noted to have frequent PVCs does not appear to be symptomatic with it. She says she has no palpitation skipped heartbeats. She has overall low normal LV ejection fraction. I would suggest not to treat this with any medications given especially low blood pressure that requires fludrocortisone support. Overall benign nature frequent PVCs was discussed with her and her brother. Avoidance of stimulants was discussed. Stress mitigation strategies were discussed. (2) Altered awareness, transient: Code(s): R40.4 - Transient alteration of awareness Plan: Patient having episodes of altered mental status at rest as loss of consciousness although these episodes are very atypical for syncope. She has these episodes while she is laying down and last for several minutes. Frequent PVCs is not likely a cause of her episodes. She has low normal LV ejection fraction. She also does not have any evidence of seizure disorder. Likely that this could be conversion disorder as labeled. Stress mitigation strategies and treatment of anxiety was discussed. Discussed with patient's brother and her. Will follow up in the clinic if need be. Thank you for allowing me to partake in her care Coding Level of Care Code New Pt Level 4 (58370) Complex EM visit Add On G2211 Diagnoses Frequent PVCs I49.3 Altered awareness, transient R40.4 CPT Codes EKG - CPT: 14206-Mqwndiksppdorczbt, Complete ([id number])
[2025-03-26 14:09] VITALS: BP 116/64; PULSE 78; BMI 22.1
--- OUTSIDE RECORDS SUMMARY | 2025-03-26 17:29 | XMS_ITS | Clinical Summary ---
Author Organization [facility] ity Address [address] [place] [address] Care Team Providers Care Parts Manager Name Role Phone Unavailable Primary Care Provider [...]
--- OUTSIDE RECORDS SUMMARY | 2025-03-26 17:29 | XMS_ITS | Patient Health Record ---
Author Organization [facility] Address [address] [place] [address] Care Team Providers Care Newswriter Name Role Phone MANDO TAMAYO Primary Care [...] e a day Active Mag Oxide-Vit D3-Turmeric [phone] MG-UNIT-MG as directed Orally Active ProAir HFA [...] Status Risk Notes Problem Colon cancer screening (591005737) Colon cancer screening (Z12.11) Active confirmed Problem Screening for malignant neoplasm of colon (852187146) Encounter for screening for malignant neoplasm of colon (Z12.11) Active confirmed Problem Fatty liver (759059098) Fatty liver (K76.0) Active confirmed Problem Long-term current use of antiplatelet drug (050161734339604) Long-term use of aspirin therapy (Z79.82) Active confirmed Problem Hepatic hemangioma (98133825) Hepatic hemangioma (D18.03) Active confirmed Vital Signs Temperature 96.9 degrees Fahrenheit 09/15/2024 Blood pressure diastolic 01 mm Hg 09/15/2024 Height 60 in 09/15/2024 Blood pressure systolic 001 mm Hg 09/15/2024 Weight 116 lbs 09/15/2024 BMI 22.65 kg/m2 09/15/2024 Encounters Encounter Location Date Provider Diagnosis [facility] [address] [address] [place], [place] [id number] 11/25/2024 Philippe Price Jr Colon cancer screening Z12.11 and Personal history of adenomatous and serrated colon polyps Z86.0101 [facility] [address] [place] [phone] 09/15/2024 Philippe Price Jr Fatty liver K76.0 ; Hepatic hemangioma D18.03 and Encounter for screening for malignant neoplasm of colon Z12.11 [facility] [address] [place] [phone] 10/08/2024 Philippe Price Jr Assessments Encounter Date [...] Insured Coverage Start Date Coverage End Date [facility] [address] Attn Claims REBA Sanchez [id number] SWATHI BANDA MARIE Self - patient is the insured Medical [...]
--- OUTSIDE RECORDS SUMMARY | 2025-03-26 17:29 | XMS_ITS | Clinical Summary ---
Author Organization [facility] Address [address] [place] [address] Phone Care Team Providers Care Orthopaedic Doctor Name Role Phone Case Duff AIRWORTHINESS INSPECTOR Primary Care Provider + Allergies Active Allergy [...] INFLUENZA VACCINE (#1) 2025 04/27/2021 COVID-19 VACCINE ( - 2024-2 6 season) 2025 RSV VACCINE (1 - 1-dose [...] file Insurance MEDICARE PART A & [facility] MEDICARE PART A & B [facility] MEDICARE REPLACEMENT RE[place] [id number] MEDICARE PART A & B [facility] MEDICARE REPLACEMENT REBA [place] [id number] MEDICARE PART A & B O MEDICARE REPLACEMENT 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 [place] [address] PCP - General Family Medicine 02/07/19 Additional Source Comments The information contained in this document represents components of the legal health record. It is not the complete legal health record.[facility]
--- OUTSIDE RECORDS SUMMARY | 2025-03-26 17:29 | XMS_ITS | Patient Health Record ---
Author Organization [facility] Address [address] [place] [address] Care Team Providers Care Director Of Security Name Role Phone Madhavialis Case Primary Care Provider UnavailSebastien Lewis Unavailable [phone] GABRIELLE BOO Unavailable [phone] Falguni Madsen Unavailable [phone] Allergies Allergen (clinical drug ingredient) Drug/Non Drug [...] date:01/16/2025 01:09:52 PM Interpretation: Performing Lab: Notes/Report: Records Request Reviewed date:03/12/2025 11:06:53 AM Interpretation: Performing Lab: Notes/Report: MR-Brain (C-) CPT 50505 Reviewed date:01/12/2025 10:12:33 AM Interpretation: Performing Lab: [...] W/U Status Risk Notes Problem Mood disorder (21143500) Mood disorder (F39) Active confirmed Problem Seizure disorder (587379445) Seizure disorder (G40.909) Active confirmed Problem Sleep disturbance (41127432) Sleep disturbance, unspecified (G47.9) Active confirmed Problem [...] N/A Encounters Encounter Location Date Provider Diagnosis [address] [address] 11/20/2024 Sebastien Myrick 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 ; Sleep disturbance, unspecified G47.9 ; Seizure disorder G40.909 and Mood disorder F39 [facility] [address] [address] 01/16/2025 Falguni Madsen 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 ; Sleep disturbance, unspecified G47.9 ; Seizure disorder G40.909 ; Mood disorder F39 and Syncope and collapse R55 [address] [address] 02/18/2025 GABRIELLE BOO 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 ; Sleep disturbance, unspecified G47.9 ; Seizure disorder G40.909 ; Mood disorder F39 ; Syncope and collapse R55 and Functional neurological symptom disorder with mixed symptoms F44.[address] [address] 03/13/2025 Falguni Madsen Sleep disturbance, unspecified G47.9 ; Functional neurological symptom disorder with attacks or seizures F44.5 ; Seizure disorder G40.909 ; Mood disorder F39 and Syncope and collapse R55 [address] [address] 09/02/2024 GABRIELLE BOO [address] [address] 09/29/[address] [address] 12/26/[address] [address] 12/26/[address] [address] 01/16/2025 [facility] Assessments Encounter Date Diagnosis (ICD Code) [...] Dr. Boo, and FND specialist here at [facility], has availability to also evaluate and perhaps [...] Arceo (Author) Recommended resources: - [email or web address] - [place] resources- GOOD for patients and families- handouts, videos explaining the neurobio of FND [email or web address]/[email or web address]/ patient_care/fnd.h [facility] Website by Dr. Anil Joe for ALL [...] R55) she is undergoing workup for this- wind plant manager, EEG pending results. Recommended echo to complete [...] evidence of infarct. She is already wearing wind plant manager and has EEG ordered. Recommended echo to [...] (Author), Gatito Crouch (Author), Jerald Arceo (Author) [place] resources- GOOD for patients and families- handouts, videos explaining the neurobio of FND [email or web address]/[email or web address]/ patient_care/fnd.h [facility] website by Dr. Anil Joe for ALL [...] referring to and communicating with other health long term care pharmacist, documenting clinical information in the record, counseling, providing instructions and answering the patient's questions. The patient understands and agrees with the plan of care outlined. This note was generated with voice recognition software. Please excuse any errors which may have been overlooked during review. Sometimes these errors may affect the content or meaning of a given sentence. If any questions, please contact the RESEARCH LABORATORY TECHNICIAN office at [phone]. Plan Of Treatment Pending Test Test Name Order Date Obtain prior medical records 01/16/2025 Next Appt Details Provider Name:Falguni Ori moody, 05/13/2025 10:30:00 AM, [address], [address], [place], [address], Insurance Providers Payer Name Payer Address Payer Phone Subscriber Number Group Number Insured Name Patient Relationship to Insured Coverage Start Date Coverage End Date [facility] [address] [place] [address] [id number] Sarahy Neves Self - patient is the insured MEDICARE [address] [place], [place] [id number] [phone] [id number] Sarahy Neves Marie Self - patient is the insured [employer] [address] [place] [address] [id number] Humbertomatthew Leida Self - patient is the [...]
--- OUTSIDE RECORDS SUMMARY | 2025-04-11 20:00 | XMS_ITS | Clinical Summary ---
Author Organization Unknown Care Team Providers Care Pest Controller Name Role Phone RONI ALVARADO, MANDO Unavailable Unavailable RIZWANA AQUINO, FRED Unavailable Unavailable Payers Payer Name Policy Type Policy Number Effective Date Expira tion Date [facility] [place] [id number] MEDICAID [facility] [id number] MEDICARE - [facility] [id number] Problems Condition Name Condition Details Condition Category [...] mg chewable tablet 12-14 00:00: 00 Yes [id number] 1 tablet DAILY 1 tablet DAILY (route: oral) Med Classific ation: Hematolog ical Agents atorvastati n 80 mg tablet 12-14 00:00: 00 Yes [id number] 1 tablet BEDTIME 1 tablet BEDTIME (route: oral) Med Classific ation: Cardiovas cular Therapy Agents cetirizine 10 mg tablet 12-14 00:00: 00 Yes [id number] 1 tablet DAILY 1 tablet DAILY (route: oral) Med Classific ation: Respirato ry Therapy Agents clonazepam 0.5 mg tablet 12-14 00:00: 00 Yes [id number] PRN FOR ANXIETY/MINH TATiON 1 tablet 2 TIMES DAILY 1 tablet 2 TIMES DAILY (route: oral) Med Classific ation: Central Nervous System Agents docusate sodium 100 mg capsule 12-14 00:00: 00 Yes [id number] 1 capsule BEDTIME 1 capsule BEDTIME (route: oral) Med Classific ation: Gastroint estinal Therapy Agents ezetimibe 10 mg tablet 12-14 00:00: 00 Yes [id number] 1 tablet DAILY 1 tablet DAILY (route: oral) Med Classific ation: Cardiovas cular Therapy Agents fludrocorti sone 0.1 mg tablet 12-14 00:00: 00 Yes [id number] 1 tablet DAILY 1 tablet DAILY (route: oral) Med Classific ation: Endocrine folic acid 800 mcg tablet 12-14 00:00: 00 Yes [id number] 1 tablet DAILY 1 tablet DAILY (route: oral) Med Classific ation: Electroly te Balance-N utritiona l Products levothyroxi ne 25 mcg tablet 12-14 00:00: 00 Yes [id number] 1 tablet DAILY 1 tablet DAILY (route: oral) Med Classific ation: Endocrine magnesium 400 mg (as magnesium oxide) tablet 12-14 00:00: 00 Yes [id number] 1 tablet BEDTIME 1 tablet BEDTIME (route: oral) Med Classific ation: Electroly te Balance-N utritiona l Products melatonin 10 mg tablet 12-14 00:00: 00 Yes [id number] 1 tablet BEDTIME 1 tablet BEDTIME (route: oral) Med Classific ation: Central Nervous System Agents montelukast 10 mg tablet 12-14 00:00: 00 Yes [id number] 1 tablet BEDTIME 1 tablet BEDTIME (route: oral) Med Classific ation: Respirato ry Therapy Agents sertraline 25 mg tablet 12-14 00:00: 00 01-19 23:59 :00 No [id number] 2 tablet DAILY 2 tablet DAILY (route: oral) Med Classific ation: Central Nervous System Agents sumatriptan 100 mg tablet 12-14 00:00: 00 Yes [id number] 1 tablet DAILY 1 tablet DAILY (route: oral) Med Classific ation: Central Nervous System Agents topiramate 100 mg tablet 12-14 00:00: 00 Yes [id number] 1 tablet 2 TIMES DAILY 1 tablet 2 TIMES DAILY (route: oral) Med Classific ation: Central Nervous System Agents sertraline 25 mg tablet 8-11 00:00: 00 Yes [id number] 3 tablet EVERY AM 3 tablet EVERY AM (route: oral) Med Classific ation: Central Nervous System Agents memantine 7 mg capsule sprinkle,ex tended release 24hr 9-04 00:00: 00 02-16 23:59 :00 No [id number] 1 capsule DAILY 1 capsule DAILY (route: oral) Med Classific ation: Cognitive Disorder Therapy fluticasone propionate 50 mcg/actuati on nasal spray,suspe nsion 9-08 00:00: 00 Yes [id number] 1 spray DAILY 1 spray DAILY (route: nasal) Med Classific ation: Respirato ry Therapy Agents memantine 14 mg capsule sprinkle,ex tended release 24hr 02-16 00:00: 00 Yes [id number] 1 capsule DAILY 1 capsule DAILY (route: oral) Med Classific ation: Cognitive Disorder Therapy cefpodoxime 200 mg tablet 03-09 00:00: 00 Yes [id number] 1 tablet 2 TIMES DAILY 1 tablet 2 TIMES DAILY (route: oral) Med Classific ation: Anti-Infe ctive Agents Vital Signs Vital Name Observation Time Observation Value Commen ts Pulse 2025-03-23 09:32:00.000 62 /min Pulse 2025-03-20 09:39:00.000 61 /min Pulse 2025-03-17 09:56:00.000 72 /min Pulse 2025-03-09 09:25:00.000 73 /min Pulse 2025-03-06 09:57:00.000 74 /min Pulse 2025-03-04 09:49:00.000 80 /min Pulse 2025-03-02 13:17:00.000 78 /min Pulse 2025-02-23 09:48:00.000 71 /min Pulse 2025-02-16 10:08:00.000 76 /min Pulse 2025-02-13 09:55:00.000 82 /min O2 Saturation (%) 2025-03-23 09:32:00.000 98 % O2 Saturation (%) 2025-03-17 09:56:00.000 99 % O2 Saturation (%) 2025-03-09 09:25:00.000 99 % O2 Saturation (%) 2025-03-06 09:57:00.000 98 % O2 Saturation (%) 2025-03-02 13:17:00.000 95 % O2 Saturation (%) 2025-02-23 09:48:00.000 99 % O2 Saturation (%) 2025-02-16 10:08:00.000 97 % O2 Saturation (%) 2025-02-13 09:55:00.000 97 % Respirations 2025-03-23 09:32:00.000 20 /min Respirations 2025-03-20 09:39:00.000 20 /min Respirations 2025-03-17 09:56:00.000 20 /min Respirations 2025-03-09 09:25:00.000 20 /min Respirations 2025-03-06 09:57:00.000 20 /min Respirations 2025-03-04 09:49:00.000 20 /min Respirations 2025-03-02 13:17:00.000 20 /min Respirations 2025-02-23 09:48:00.000 20 /min Respirations 2025-02-16 10:08:00.000 20 /min Respirations 2025-02-13 09:55:00.000 20 /min Systolic Blood Pressure 2025-03-23 09:32:00.000 124 mm [Hg] Systolic Blood Pressure 2025-03-20 09:39:00.000 145 mm [Hg] Systolic Blood Pressure 2025-03-17 09:56:00.000 124 mm [Hg] Systolic Blood Pressure 2025-03-09 09:25:00.000 140 mm [Hg] Systolic Blood Pressure 2025-03-06 09:57:00.000 123 mm [Hg] Systolic Blood Pressure 2025-03-02 13:17:00.000 124 mm [Hg] Systolic Blood Pressure 2025-02-23 09:48:00.000 128 mm [Hg] Systolic Blood Pressure 2025-02-16 10:08:00.000 100 mm [Hg] Systolic Blood Pressure 2025-02-13 09:55:00.000 120 mm [Hg] Diastolic Blood Pressure 2025-03-23 09:32:00.000 74 mm [Hg] Diastolic Blood Pressure 2025-03-20 09:39:00.000 86 mm [Hg] Diastolic Blood Pressure 2025-03-17 09:56:00.000 70 mm [Hg] Diastolic Blood Pressure 2025-03-09 09:25:00.000 [...] AWARENESS FOR SAFETY AND WILL NOTIFY CLINICAL KENNEL KEEPER AND PHYSICIAN/PROVIDER WITH ANY CHANGE IN CONDITION. [code = SKILLED NURSE WILL MAINTAIN SITUATIONAL AWARENESS FOR SAFETY AND WILL NOTIFY CLINICAL KENNEL KEEPER AND PHYSICIAN/PROVIDER WITH ANY CHANGE IN CONDITION.] [...] CARE WILL BE ESTABLISHED THAT MEETS PATIENT'S USP NEEDS AND INCLUDES PATIENT GOAL FOR HOME [...] End Date/Time Encounter Type Admission Type Attending [facility] Facility Care Department Encounter ID Discharge Date Discharge Status Discharge Condition Discharge Reason Percent Goals Met 2025-02-12 00:00:00 2025-04-12 00:00:00 Outpatient RECERTIFIC FRED MCARTHUR [facility] [id number] 86.36
== END 2025-03-26 14:40 | disposition home or self-care (01) ==
LOC: HO.HCS 13:44
PROVIDERS: PCP Nurse Practitioner Family; Visit Provider Internal Medicine Cardiovascular Disease
DX: I49.3 Ventricular premature depolarization (principal); R40.4 Transient alteration of awareness
CPT/HCPCS: 93010; 99214; G2211

== ENCOUNTER → 2025-03-26 13:43 | Outpatient (BNVA) | payer OTHER, SELFPAY | PROVIDERS: PCP Nurse Practitioner Family; Visit Provider Internal Medicine Cardiovascular Disease | DX: I49.3 Ventricular premature depolarization (principal); R40.4 Transient alteration of awareness; Z79.82 Long term (current) use of aspirin; E78.5 Hyperlipidemia, unspecified | CPT/HCPCS: 93005; 99212 ==

== ENCOUNTER 2025-04-22 13:14 | Outpatient (AMB) | payer OTHER, SELFPAY ==
--- OUTSIDE RECORDS SUMMARY | 2024-10-10 05:50 | XMS_ITS ---
Author Organization [facility] Address [address] [place] [address] Care Team Providers Care Web Content Executive Name Role Phone MANDO TAMAYO Primary Care Provider Philippe Tsai Jr [phone] REASON FOR VISIT screening Encounters Encounter Location Date Provider Diagnosis [facility] [place] [address] [place] [id number] 10/10/2024 Philippe Price Jr Plan Of Treatment No Information Progress Notes * GENESISMaryam SWATHI BORJASFARHADOB: [birth year] (70 yo F)Acc No.[id number]:10/10/2024 COLON WITH MAC Patient: SWATHI RICHARDS Provider: Allison Price MD :1955 A ge:69 Y S ex:Female Date:10/10/2024 Address:[facility] [id number] Pcp:MANDO TAMAYO Subjective: * Chief Complaints: * 1 . Screening. * Medical History: Objective: * Vitals: Assessment: Plan: * Treatment: * * The named appointment provid er may or may not be the originator of this progress note, and it is not deemed complete until electronically signed by the appointment provider. Sign off status: Pending * Provider: Allison Price MD Date: 0 10/10/2024 Generated for Darcyi ng/Fareidg/eTransmitting on: 06/22/2024 04:00 PM EST
--- OUTSIDE RECORDS SUMMARY | 2024-11-25 06:50 | XMS_ITS ---
Author Organization [facility] Address [address] [place] [address] Care Team Providers Care Insurance Rater Name Role Phone MANDO TAMAYO Primary Care Provider Philippe Tsai Jr REASON FOR VISIT screening Encounters Encounter Location Date Provider Diagnosis [facility] [place] [address] [place] [id number] 11/25/2024 Philippe Price Jr Colon cancer screening Z12.11 and Personal history of adenomatous and serrated colon polyps Z86.0101 Assessments Encounter Date Diagnosis (ICD Code) Assessment Notes Treatment Notes Treatment Clinical Notes Section Notes 11/25/2024 Colon cancer screening (ICD-10 - Z12.11) 11/25/2024 Personal history of adenomatous and serrated colon polyps (ICD-10 - Z86.0101) Plan Of Treatment No Information Progress Notes * SWATHI BANDAOB: [birth year] (70 yo F)Acc No.[id number]:11/25/2024 COLON WITH MAC Patient: Allison NOWAK DWAIN Provider: Allison Price MD :1955 A ge:69 Y S ex:Female Date:11/25/2024 Address:[address] [place], [place] [id number] Pcp:MANDO TAMAYO Subjective: * Chief Complaints: * 1 . Screening. * Medical History: Objective: * Vitals: Assessment: * Assessment: 1. C olon cancer screening - Z12.11 (Primary) 2 . P ersonal history of adenomatous and serrated colon polyps - Z86.0101 Plan: * Treatment: * Procedure Codes: 4 5378 DIAGNOSTIC COLONOSCOPY, 0529F INTRVL 3+YRS PTS CLNSCP DOCD, 0528F RCMND FLW-UP 10 YRS DOCD * * The named appointment provid er may or may not be the originator of this progress note, and it is not deemed complete until electronically signed by the appointment provider. Sign off status: Pending * Provider: Allison Price MD Date: 0 11/25/2024 Generated for Elisa barbosa/Silas/Matiitting on: 1 06/22/2024 04:00 PM EST
--- OUTSIDE RECORDS SUMMARY | 2025-01-08 10:30 | XMS_ITS ---
Author Organization [employer] Address [address] [facility] [address] [place] [address] Care Team Providers Care Farmworker Name Role Phone Case Duff Primary Care Provider UnavailSebastien Lewis Unavailable [phone] Falguni Madsen Unavailable [phone] REASON FOR VISIT pt called and she is still in [place] Medications Medication SIG (Take, Route, Frequency, Duration) Notes Start Date End Date Status Melatonin 5 MG 1 tablet in the even ing Orally Once a day; Duration: 30 day(s) Active Singulair 10 MG 1 tablet Orally Once a day; Duration: 30 day(s) Active Fludrocortisone Acetate 0.1 MG 2 tablets Orally daily Activ e KlonoPIN 0.5 MG 1 tablet at bedtime Orally Once a day Active Levothyroxine Sodium 25 MCG 1 tablet in the morning on an empty stomach Orally Once a day; Duration: 30 days Active Anbesol 10 % 1 application as nee ded Mouth/Throat Four times a day Active Aspir-81 Active Atorvastatin Calcium 40 MG 1 tablet Oral ly twice a day; Duration: 30 days Active Colace 100 MG 1 capsule as needed Orally Once a day; Duration: 30 day(s) Active Flonase Allergy Relief 50 MCG/ACT 1 spray in each nostril Nasally Once a day; Duration: 30 day(s) Active ProAir HFA 108 (90 Base) MCG/ACT 2 puffs Inhalation every 4 hrs As needed Active Acetaminophen 325 MG 1 tablet as needed Orally every 4 hrs 01/22/2020 Active Advair Diskus 250-50 MCG/DOSE as directed Inhalation 01/22/2020 Activ e Albuterol Sulfate HFA 108 (90 Base) MCG/ACT 1 puff as needed Inhalation every 4 hrs Active Albuterol Sulfate (2.5 MG/3ML) 0.083% 3 mL as needed Inhalation every 6 hrs Active Vitamin B2 Active MiraLax 17 GM 1 packet mixed with 8 ounces of fluid Orally Once a day Active Alendronate Sodium A ctive Meclizine HCl 25 MG 1 tablet as needed Orally every 12 hrs Active SUMAtriptan Succinate 100 MG 1 tablet as needed, may take second dose at least 2 hours after first dose up to 2 tablets per day as needed Orally Once a day Active Topiramate 100 MG 1 tablet Orally twic e a day Active Vitamin D3 25 MCG (1000 UT) 1 capsule Or ally Once a day; Duration: 30 day(s) Active FLUoxetine HCl 20 MG 2 capsules once a day for 7 days, 1 capsule once a day for 7 days Oral; Duration: 14 days discontinue after 14 days Active Sertraline HCl 25 MG as directed Orally 1 per day for 14 days and 2 daily thereafter; Duration: 30 days 11/20/2024 Active Magnesium Oxide 400 MG 1 tablet with kesha d Orally twice a day Active Encounters Encounter Location Date Provider Diagnosis [address] [address] 01/08/2025 Falguni Madsen Plan Of Treatment Next Appt Details Provider Name:Falguni moody, 05/13/2025 10:30:00 AM, [address] [place] [address], [phone], Progress Notes * Sarahy NEVES MDOB:[birth year] (70 yo F)Acc No.[id number]:01/08/2025 Progress Note Patient: Sarahy RICHARDS Provider: Connie Madsen, RN, CHIEF OPERATOR REFORMER-C, PHOTOGRAPHER HELPER :1955 A ge:70 Y S ex:Female Date:01/08/2025 Address:[address] [place] [address] [id number] Pcp:Case Duff Subjective: * Chief Complaints: * 1 . pt called and she is still in [place]. 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 Patient has been out of facility for several years and has been referred back to TRACK SWEEPER for specialized management of FND. Patient does continue to see her psychotherapist regularly. She does not currently have a psychiatrist. Current symptoms include occasional sleepwalking which is less frequent than it was 5 years ago. Patient also with unexplained gait instability and frequent falls which have provoked ER visits. Per report of the patient's brother who again accompanies her today the patient has had a recent head CAT scan which was unremarkable. As stated in previous notes EEG and sleep studies have also been performed in the past. Patient denies any new focal neurologic deficits. Patient denies any shuffling or magnetic gait. Patient denies any abnormal involuntary movements. Patient does admit to feeling more depressed. She has been on fluoxetine for many years, currently taking 60 mg daily. The patient's brother is not sure if the medication is helping at this point. The patient does not able to recall any previous antidepressant trials. At last visit 11/20, patient was cross tapered from Prozac to Sertraline. - sertraline 50 - topiramate 100 bid - sumatriptan prn - started namenda for migraine? - MRI?. * Medical History: * Medications: T aking Magnesium Oxide 400 MG Tablet 1 tablet with food Orally twice a day , Taking Vitamin B2 , Taking MiraLax 17 GM Packet 1 packet mixed with 8 ounces of fluid Orally Once a day , Taking Alendronate Sodium , Taking Meclizine HCl 25 MG Tablet 1 tablet as needed Orally every 12 hrs , Taking SUMAtriptan Succinate 100 MG Tablet 1 tablet as needed, may take second dose at least 2 hours after first dose up to 2 tablets per day as needed Orally Once a day , Taking Albuterol Sulfate (2.5 MG/3ML) 0.083% Nebulization Solution 3 mL as needed Inhalation every 6 hrs , Taking ProAir HFA 108 (90 Base) MCG/ACT Aerosol Solution 2 puffs Inhalation every 4 hrs As needed, Taking Acetaminophen 325 MG Tablet 1 tablet as needed Orally every 4 hrs , Taking Advair Diskus 250-50 MCG/DOSE Miscellaneous as directed Inhalation , Taking Albuterol Sulfate HFA 108 (90 Base) MCG/ACT Aerosol Solution 1 puff as needed Inhalation every 4 hrs , Taking Anbesol 10 % Gel 1 application as needed Mouth/Throat Four times a day , Taking Aspir-81 , Taking Atorvastatin Calcium 40 MG Tablet 1 tablet Orally twice a day , Taking Colace 100 MG Capsule 1 capsule as needed Orally Once a day , Taking Flonase Allergy Relief 50 MCG/ACT Suspension 1 spray in each nostril Nasally Once a day , Taking Fludrocortisone Acetate 0.1 MG Tablet 2 tablets Orally daily , Taking KlonoPIN 0.5 MG Tablet 1 tablet at bedtime Orally Once a day , Taking Levothyroxine Sodium 25 MCG Tablet 1 tablet in the morning on an empty stomach Orally Once a day , Taking Melatonin 5 MG Tablet 1 tablet in the evening Orally Once a day , Taking Singulair 10 MG Tablet 1 tablet Orally Once a day , Taking Topiramate 100 MG Tablet 1 tablet Orally twice a day , Taking Vitamin D3 25 MCG (1000 UT) Capsule 1 capsule Orally Once a day , Taking FLUoxetine HCl 20 MG Capsule 2 capsules once a day for 7 days, 1 capsule once a day for 7 days Oral discontinue after 14 days, Taking Sertraline HCl 25 MG Tablet as directed Orally 1 per day for 14 days and 2 daily thereafter Objective: * Vitals: Assessment: Plan: * Treatment: * * Electronic signature of MITCH Schmitt CNP on 04/22/2025 at 03:59 PM EST Sign off status: Pending * Provider: Connie Madsen RN, ELENA MEYER Date: 0 01/08/2025 Generated for Printing/Fareidg/eTransmitting on: 06/22/2024 03:59 PM EST
--- OUTSIDE RECORDS SUMMARY | 2025-02-20 06:30 | XMS_ITS ---
Author Organization [facility] Address [address] [place] [address] Care Team Providers Care Financial Investment Adviser Name Role Phone Case Duff Primary Care Provider Sebastien Byrnes Unavailable [phone] Falguni Madsen Unavailable [phone] REASON FOR VISIT 1-2 month f/u- f/u on seizures, echocardiogram Encounters Encounter Location Date Provider Diagnosis [facility] [address] [address] 02/20/2025 Falguni Madsen Plan Of Treatment Next Appt Details Provider Name:Falguni moody, 05/13/2025 10:30:00 AM, [address] [place] [address], [phone], Progress Notes * Sarahy NEVES MDOB:[birth year] (70 yo F)Acc No.[id number]:02/20/2025 Progress Note Patient: Sarahy RICHARDS Provider: Connie Madsen RN, MANAGER PHILOSOPHY-C, INSTRUMENT TECHNOLOGIST :1955 A ge:70 Y S ex:Female Date:02/20/2025 Address:[address] [place] [address] [id number] Pcp:Case Duff Subjective: * Chief Complaints: * 1 . 1-2 month f/u- f/u on seizures, echocardiogram. * Medical History: Objective: * Vitals: Assessment: Plan: * Treatment: * * Electronic signature of MITCH Schmitt CNP on 04/22/2025 at 03:59 PM EST Sign off status: Pending * Provider: Connie Madsen RN, ELENA MEYER Date: 0 02/20/2025 Generated for Printing/Faxing/eTransmitting on: 06/22/2024 03:59 PM EST
--- NOTE | 2025-04-22 13:18 | A.OFFVIS_ITS ---
Vital Signs 04/22/25 13:19 Height 5 ft 1 in BP 132/60 Blood Pressure Location Rt brachial Position Sitting Intake Visit Reasons: follow up (COMF.) Intake Note: Patient presents follow up Migraine/Seizure. 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 Architect Required: No Accompanied by: Self / Same As Patient Allergies Penicillins (PENICILLINS) Allergy (Intermediate, Verified 04/22/25 13:19) HIVES carbamazepine (From Tegretol) Allergy (Mild, Verified 04/22/25 13:19) HIVES diflunisal (From Dolobid) Allergy (Mild, Verified 04/22/25 13:19) HIVES erythromycin base (From Edwin-Tab) Allergy (Mild, Verified 04/22/25 13:19) HIVES phenytoin (From Dilantin) Allergy (Mild, Verified 04/22/25 13:19) RASH,HIVES piroxicam (From Feldene) Allergy (Mild, Verified 04/22/25 13:19) HIVES sulfamethoxazole (From Bactrim) Allergy (Mild, Verified 04/22/25 13:19) HIVES trimethoprim (From Bactrim) Allergy (Mild, Verified 04/22/25 13:19) HIVES valproic acid (From Depakene) Allergy (Mild, Verified 04/22/25 13:19) HIVES Depakene Allergy (Unknown, Verified 04/22/25 13:19) Rash hydrochlorothiazide (HYDROCHLOROTHIAZIDE) Allergy (Unknown, Verified 04/22/25 13:19) rash lisinopril (LISINOPRIL) Allergy (Unknown, Verified 04/22/25 13:19) rash galcanezumab-gnlm (From Emgality Pen) Allergy (Verified 04/22/25 13:19) headaches codeine (Codeine) Adverse Reaction (Intermediate, Verified 04/22/25 13:19) NAUSEA & VOMITING rash doxycycline Adverse Reaction (Verified 04/22/25 13:19) Stomach Upset ENVIRONMENTAL Allergy (Intermediate, Uncoded 04/22/25 13:19) ASTHMA,LOSES VOICE TAPE,PLASTIC Allergy (Intermediate, Uncoded 04/22/25 13:19) RASH surgical tape Allergy (Unknown, Uncoded 04/22/25 13:19) unknown Medication List - Last Reconciled 04/22/25 by PRINCE Villalobos albuterol sulfate 2.5 mg (3 mL) inhalation QID PRN 90 days albuterol sulfate 90 mcg/actuation 2 puffs PO Q6H PRN aspirin (Adult Low Dose Aspirin) 81 mg PO DAILY atorvastatin 80 mg PO BEDTIME cetirizine (All Day Allergy (cetirizine)) 10 mg PO DAILY PRN 30 days cholecalciferol (vitamin D3) 50 mcg PO DAILY 90 days clonazepam 0.5 mg PO BID 30 days docusate sodium 100 mg PO BEDTIME ezetimibe 10 mg PO DAILY fludrocortisone 0.1 mg PO DAILY 90 days fluticasone propion-salmeterol 250-50 mcg/dose (Wixela Inhub) 1 ea PO BID fluticasone propionate 50 mcg/actuation 1 spray intranasal DAILY 90 days folic acid 0.8 mg PO DAILY levothyroxine 25 mcg PO DAILY [[employer] unit As directed] magnesium oxide 400 mg PO BEDTIME 90 days meclizine 25 mg PO DAILY PRN melatonin 10 mg PO BEDTIME memantine 28 mg PO DAILY 30 days montelukast 10 mg PO DAILY riboflavin (vitamin B2) 400 mg PO DAILY 90 days risedronate 35 mg PO MCKEE@0900 sertraline 100 mg PO DAILY sumatriptan succinate 100 mg PO Q2H PRN 30 days topiramate 100 mg PO BID 90 days HPI Comments Details: 70-yr-old female presents for f/u visit of functional neurological disorder and migraine. Interval history: She had cardiology consult for episodes of PVCs, which were felt to be benign. Interval EEG was read as unremarkable, however we had received a call that the EEG recording was suspended as the patient had visible convulsive symptoms. She reports today that she just does not understand her functional neurological disorder diagnosis. She states she bought a couple of books of on FND, which were suggested by her psychiatric provider at [facility], but she does not understand what this means. Taking Control of Your Seizures: Workbook (Treatments That Work); Overcoming Functional Neurological Symptoms: A Five Areas Approach. She still has dyas where she feels that she is exhausted, but constantly on the move, but has difficulty being motivated. She states she is having difficulty with vacuuming and dusting. She states she is not eligible for home making assistance, as they stated that she is independent with her ADLs. However, she does avoid showering in her upstairs bathroom, as she is prone to trip getting in and out of the shower. She states her brother tells her that she is sleep walking, but no longer leaving the house. She states she has had some recent falls. She states that her migraine attacks are a bit better. She now prefers to take Tylenol as needed, unless the migraine is very severe, as the sumatriptan can make her feel more tired. Discussed trying an alternate triptan, however she would like to continue the prn sumatriptan for now. 12/25/2024, HPI: Pt reports she was admitted to [facility] 01/07/2025 due to passing out and falling while walking at home, she was brought to the ED via EMS. Review of [facility] records: * Per [facility] note: ?In the ED pt was hypertensive to 166/95, vitals otherwise stable and WNL. Labs were grossly unremarkable and around baseline for pt. No leukocytosis. Stable H&H. No significant electrolyte abnormalities. Renal and hepatic function baseline. Troponin negative. CT of head showed possible acute/subacute ischemic change in the left parietal lobe. CTA of head/neck without hemodynamically significant stenosis of either head or neck. CT of cervical spine negative for acute abnormality, though showed multilevel degenerative disc disease. Chest and abd/pelvis CT negative for traumatic injury to chest, abdomen, or pelvis. EKG demonstrated normal sinus rhythm without evidence of significant ST elevations or depressions.? * Follow-up brain MRI without contrast showed: no acute intracranial findings. Mild diffuse cortical volume loss. Small nonspecific white matter FLAIR hyperintensities. Small fluid in the bilateral mastoid air cells. Otherwise unremarkable exam. * Inpatient Neurology was consulted. Patient's syncopal and collapse episode was felt to be consistent with her previous known conversion disorder symptoms. * Patient was advised to have outpatient EEG and 30 day Holter monitor. * Holter monitor has already been ordered by PCP office. * EEG does need to be ordered. They also advise that patient do cognitive behavioral therapy. * Patient was discharged with home care services, and is doing home PT Since returning home, patient denies any new focal symptoms. She states she is quite confused as to why she was told she had a stroke, but then told she did not have a stroke. She does feel more brain fog. She is still prone to frequent dizziness, triggered by head movement. States vestibular therapy made her feel nauseous, but was ineffective. She continues to have a daily headache, photophobia, but can not quantify how often she is having a severe migraine. She states that she stopped Emgality some time ago, as she would have severe migraine attack 1 week after each injection. States sumatriptan helps some, when Tylenol does not help. It is unclear if she is taking the sumatriptan at the 1st sign of the headache. She notes some tingling in both feet. Patient states she has started seen at the [facility]. States she has seen him previously which she was at the [facility]. She states he has change her depression medication from fluoxetine to ? Sertraline. She states she has a follow-up appointment at the end of this month to discuss her response to new antidepressant. She states that she has been sleep walking, but her brother tells her that she has not left the house yet. [facility] Medical History Osteopenia Conversion disorder with attacks or seizures, acute episode, with psychological stressor Falls Anesthesia complication Liver lesion Ingrown toenail Elevated liver enzymes Concussion with loss of consciousness SOB (shortness of breath) Pain of both earlobes Dizziness New onset headache Otitis externa of both ears Acute effusion of right ear Dermatitis Myalgia Headache REM sleep behavior disorder Convulsion disorder COVID-19 Pre-syncope Dyspnea Chest pain Pneumonia Osteoporosis Screening for osteoporosis CKD (chronic kidney disease) Dyslipidemia Hypothyroid Hyperlipemia Ataxic gait Seizures Asthma Depression Conversion disorder HTN (hypertension) Muscle weakness Hypothyroid Surgical History H/O colonoscopy History of right knee surgery History of lobectomy of thyroid History of arthroscopy of right knee History of ankle surgery History of arthroscopy of left knee History of hysterectomy Family History Father CVD (cardiovascular disease) Stomach ulcer Cardiac arrest H/O heart bypass surgery Mother History of heart attack CHF (congestive heart failure) Lung cancer Diabetes mellitus High cholesterol HTN (hypertension) Hypothyroidism Sister Lung cancer Substance use disorder Brother Colitis Sister No problems noted. Sister Obstetric pulmonary blood clot embolism, antepartum Paternal Aunt Mental health disorder Substance use disorder Maternal Grandmother Mental health disorder Family/Other Substance use disorder Social History Household Members: Family Household Members Other:: brother, 2 cats Housing: House Are you a primary care transition coordinator to a significant other at home: No Do you presently have visiting nurse or other home services: No Alcohol intake: never Patient Tobacco Use Status: Never used Tobacco e-Cigarette/Vaping Use: Never Used Second Hand Smoke Exposure: No service: No Current occupational status: disabled Cognitive needs: No Hearing needs: No Vision needs: No Physical Exam Vital Signs: Last Vital Signs BP 132/60 04/22/25 13:19 Const General: cooperative and no acute distress Orientation/consciousness: patient oriented x3 Resp Effort & Inspection: normal respiratory effort and able to speak in complete sentences Neuro Other: A&O- some STM lapses. Photophobic. Gait- slow to stand, steady today with walker General: patient oriented x3 Cranial nerves: Yes CN's II-XII intact bilaterally Cognition (Neuro): normal cognition Psych Appearance: grossly normal Mental Status: mental status grossly normal Speech and movement: Clear speech present Affect: normal affect Attitude: cooperative Insight: Limited insight present (Psych) Results Reviewed Results Reviewed: Head CT 12/08/24 12:43 IMPRESSION: Possible acute/subacute ischemic change in the left parietal lobe. Cervical Spine CT 12/08/24 12:43 IMPRESSION: Multilevel degenerative disc disease with uncovertebral and facet arthropathy, most advanced at C5-6. No acute abnormality. Abdomen/Pelvis CT 12/08/24 12:45 IMPRESSION: No evidence of traumatic injury to the chest, abdomen, or pelvis. Please note that evaluation for solid organ injury is limited by lack of intravenous contrast material. Chest CT 12/08/24 12:45 IMPRESSION: No evidence of traumatic injury to the chest, abdomen, or pelvis. Please note that evaluation for solid organ injury is limited by lack of intravenous contrast material. 12/08/24 12:16 MCV 94.6 MCH 30.9 MCHC 32.6 RDW 14.3 Plt Count 249 MPV 9.6 Immature Gran % (Auto) 0.4 Neut % (Auto) 57.5 Lymph % (Auto) 25.0 [place] % (Auto) 11.2 H Eos % (Auto) 4.8 H Baso % (Auto) 1.1 Lymph # (Auto) 1.4 [place] # (Auto) 0.6 Eos # (Auto) 0.3 Baso # (Auto) 0.1 Abs Immat Gran (auto) 0.02 Absolute Neuts (auto) 3.2 Absolute Nucleated RBC 0.000 Nucleated RBC % (auto) 0.0 Anion Gap 10 L Estim Creat Clear Calc 44.0 Estimated GFR 59 Random Glucose 84 Calcium 8.9 Total Bilirubin 0.2 AST 30 ALT 20 Alkaline Phosphatase 66 Troponin I High Sens < 2.7 Total Protein 5.9 L Albumin 3.5 12/08/24 12/08/24 12:16 17:19 Total Creatine Kinase 79 Triglycerides 46 Cholesterol 152 LDL Cholesterol, Calc 66 HDL Cholesterol 77 Urine Color Yellow Urine Appearance Clear Urine pH 6.5 Ur Specific Lawrence >= 1.030 H Urine Protein Negative Urine Glucose (UA) Negative Urine Ketones Negative Urine Blood Negative Urine Nitrite Negative Ur Leukocyte Esterase Moderate (2+) H Urine RBC 0-2 Urine WBC 11-20 H Ur Squamous Epith Cells 0-2 Urine Bacteria None Seen Hyaline Casts 0-2 12/08/24 17:34 Urine Culture - Preliminary Urine clean catch - Clean Catch Midstream No growth to date. Assessment & Plan Assessment & Plan (1) Syncope and collapse: Code(s): R55 - Syncope and collapse Category: Medical (2) Conversion disorder with attacks or seizures, acute episode, with psychological stressor: Code(s): F44.5 - Conversion disorder with seizures or convulsions Category: Medical (3) Falls: Code(s): W19.XXXA - Unspecified fall, initial encounter Category: Medical Qualifiers: Encounter type: subsequent encounter Qualified Code(s): W19.XXXD - Unspecified fall, subsequent encounter (4) Depression: Code(s): F32.9 - Major depressive disorder, single episode, unspecified Category: Medical Qualifiers: Depression Type: major depressive disorder Major depression recurrence: recurrent Active/Remission status: currently active Major depression episode severity: unspecified Qualified Code(s): F33.9 - Major depressive disorder, recurrent, unspecified (5) Chronic migraine without aura: Code(s): G43.709 - Chronic migraine without aura, not intractable, without status migrainosus Category: Medical Qualifiers: Status migrainosus presence: without status migrainosus Intractability: not intractable Qualified Code(s): G43.709 - Chronic migraine without aura, not intractable, without status migrainosus Plan For migraine headache: Continue Roboflavin 400mg qam Continue Magnesium 400mg qhs Continue Topiramate 100mg bid- for headache and convulsion prevention. Continue memantine ER 28 mg daily Patient may also benefit from trying FL-41 Marisabel stented blocking glasses, has application these today markedly reduced her photophobia. Information on the style of glasses shared with patient, and patient advised to discuss with her eye care provider. Continue Tylenol and Sumatriptan as needed ? For recurrent falls, mood, history of sleep walking, [place]: Reviewed interval EEG result, which was read as unremarkable. Reviewed interval cardiology notes, they did not feel that her syncopal events were related to her PVCs or an underlying cardiac condition. Patient encouraged to request home making services again through [facility], explain that she does not fact need assistance for ADLs, such as shower transfers due to her risk for falls with injury. Continue increased po intake- try taking several small meals/snacks which include protein and complex CHO. Use walker consistently. Continue Fludrocortisone 0.1 mg daily Continue Clonazepam 0.5 mg bid. Continue sertraline per Psychiatry Continue working w/ her therapist. Follow-up w/ Dr. Myrick as scheduled Monitor tremor. Follow-up in clinic in 6 months or sooner prn Medications: Refilled fludrocortisone 0.1 mg PO DAILY 90 tabs 1RF for blood pressure 90 days Coding Level of Care Code Est Pt Level 4 (81131) Diagnoses Syncope and collapse R55 Conversion disorder with attacks or seizures, acute episode, with psychological stressor F44.5 Fall, subsequent encounter W19.XXXD Encounter type: subsequent encounter Episode of recurrent major depressive disorder, unspecified depression episode severity F33.9 Depression Type: major depressive disorder Major depression recurrence: recurrent Active/Remission status: currently active Major depression episode severity: unspecified Chronic migraine without aura without status migrainosus, not intractable G43.709 Status migrainosus presence: without status migrainosus Intractability: not intractable
[2025-04-22 13:19] VITALS: BP 132/60
--- OUTSIDE RECORDS SUMMARY | 2025-04-22 16:00 | XMS_ITS | Clinical Summary ---
Author Organization [facility] Address [address] [place] [address] Phone Care Team Providers Care Soil Conservation Technician Name Role Phone Case Duff HEALTH DATA ADMINISTRATOR Primary Care Provider + Allergies Active Allergy [...] PART A & B [facility] MED[facility] REPLAC[facility] MEDICARE PART A & B [facility] MEDICARE REPLACEMENT REBA [place] [id number] MEDICARE PART A & B [facility] MEDICARE REPLACEMENT REAB [place] [id number] MEDICARE PART A & B O MEDICARE REPLACEMENT [facility] MEDICARE PART A & B [facility] MEDICARE REPLACEMENT MEDICARE PART A & B MEDICARE REPLACEMENT MEDICARE PART A & [place] [address] [place] [address] MEDICARE REPLACEMENT MEDICARE PART A & B [facility] MEDICARE REPLACEMENT MEDICARE PART A & B [facility] MEDICARE REPLACEMENT Advance Directives For more information, please contact: [phone] (9AM - 5PM [facility], Sunday-Sunday) Documents on File Type Date Recorded Patient Grand Scribe Expl anation Healthcare Proxy 02/13/2019 1:15 PM Healthcare Agents on File Name Relationship Healthcare Agent Relationship Communication Ariel Neves Brother .Primary Health Care Agent (Proxy form on file) Cierra oMjica Sister Alternate Health care Agent (Proxy form on file) Care Teams Soil Conservation Technician Relationship Specialty Start Date End Date Case Duff NP [facility] [place] [id number] PCP - General Family Medicine 02/07/19 Additional Source Comments The information contained in this document represents components of the legal health record. It is not the complete legal health record.[facility]
--- OUTSIDE RECORDS SUMMARY | 2025-04-22 16:00 | XMS_ITS | Clinical Summary ---
Author Organization [facility] ity Address [address] [place] [address] Care Team Providers Care Oil Pumper Name Role Phone Unavailable Primary Care Provider [...] Depression Screening 06/11/2024 COVID-19 Vaccine (1 - 2024-2 6 season) 2025 Influenza Vaccine (#1) 2025 RSV [...]
--- OUTSIDE RECORDS SUMMARY | 2025-04-22 16:00 | XMS_ITS | Patient Health Record ---
Author Organization [facility] Address [address] [place] [address] Care Team Providers Care Sample Paster Name Role Phone Madhavialis Case Primary Care Provider UnavailSebastien Lewis Unavailable [phone] GABRIELLE BOO Unavailable [phone] Falguni Madsen Unavailable [phone] Allergies Allergen (clinical drug ingredient) Drug/Non Drug [...] Interpretation: Performing Lab: Notes/Report: MR-Brain (C-) CPT 66489 Reviewed date:01/12/2025 10:12:33 AM Interpretation: Performing Lab: [...] W/U Status Risk Notes Problem Mood disorder (70313341) Mood disorder (F39) Active confirmed Problem Seizure disorder (466724920) Seizure disorder (G40.909) Active confirmed Problem Sleep disturbance (96245272) Sleep disturbance, unspecified (G47.9) Active confirmed Problem [...] N/A Encounters Encounter Location Date Provider Diagnosis [address] [address] 11/20/2024 Sebastien Myrick 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 ; Sleep disturbance, unspecified G47.9 ; Seizure disorder G40.909 and Mood disorder F39 [facility] [address] [address] 01/16/2025 Falguni Madsen 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 ; Sleep disturbance, unspecified G47.9 ; Seizure disorder G40.909 ; Mood disorder F39 and Syncope and collapse R55 [address] [address] 02/18/2025 GABRIELLE BOO 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 ; Sleep disturbance, unspecified G47.9 ; Seizure disorder G40.909 ; Mood disorder F39 ; Syncope and collapse R55 and Functional neurological symptom disorder with mixed symptoms F44.[address] [address] 03/13/2025 Falguni Madsen Sleep disturbance, unspecified G47.9 ; Functional neurological symptom disorder with attacks or seizures F44.5 ; Seizure disorder G40.909 ; Mood disorder F39 and Syncope and collapse R55 [address] [address] 09/02/2024 GABRIELLE BOO [address] [address] 09/29/[address] [address] 12/26/[address] [address] 12/26/[address] [address] 01/16/2025 [facility] Assessments Encounter Date Diagnosis (ICD Code) [...] Dr. Boo, and FND specialist here at [facility], has availability to also evaluate and perhaps [...] Arceo (Author) Recommended resources: - FNDhope.org - [place] resources- GOOD for patients and families- handouts, videos explaining the neurobio of FND [email or web address]/psychiatry/ patient_care/fnd.h [facility] Website by Dr. Anil Joe for ALL [...] R55) she is undergoing workup for this- conveyor monitor, EEG pending results. Recommended echo to complete [...] evidence of infarct. She is already wearing conveyor monitor and has EEG ordered. Recommended echo to [...] Areas Approach 1st Editionby Lucho Walton (Author), Pnacho Pearson (Author), Yeimy Damon (Author), Dino Sherwood (Author), Gatito Crouch (Author), Jerald Arceo (Author) [place] resources- GOOD for patients and families- handouts, videos explaining the neurobio of FND [email or web address]/[email or web address]/ patient_care/fnd.h [facility] website by Dr. Anil Joe for ALL [...] referring to and communicating with other health healthcare management consultant, documenting clinical information in the record, counseling, providing instructions and answering the patient's questions. The patient understands and agrees with the plan of care outlined. This note was generated with voice recognition software. Please excuse any errors which may have been overlooked during review. Sometimes these errors may affect the content or meaning of a given sentence. If any questions, please contact the DEHYDROGENATION CONVERTER HELPER office at [phone]. Plan Of Treatment Pending Test Test Name Order Date Obtain prior medical records 01/16/2025 Next Appt Details Provider Name:Falguni Ori moody, 05/13/2025 10:30:00 AM, [address], [address], [place], [address], Insurance Providers Payer Name Payer Address Payer Phone Subscriber Number Group Number Insured Name Patient Relationship to Insured Coverage Start Date Coverage End Date [facility] [address] [place] [address] [id number] Sarahy Neves Self - patient is the insured MEDICARE [address] [place], [place] [id number] Sarahy Neves Marie Self - patient is the insured [employer] [address] [place] [address] [id number] Humbertomatthew Leida Self - patient is the [...]
--- OUTSIDE RECORDS SUMMARY | 2025-04-22 16:00 | XMS_ITS | Data Portability ---
Author Organization [employer], [facility] [employer] [facility] Address [address] [place] [phone] Care Team Providers Care Urgent Care Name Role Phone HIM CCA OTHER Assessment [...] Assessment and Plan as documented by the Slip Mixer. Patient given the opportunity to ask questions. Advised needs close follow-up with PCP however-if not improving she may call for another visit with us and if develops CP/severe SOB/turning blue/uncontrolle d n/v/d or black/bloody emesis or stool/ AMS/ syncope/ hi fever to call 911- she verbalized understanding of instructions to me [email or web address] Not available 02/16/2023 13:22:13 06/29/2023 06/29/2023 I have reviewed and agree with the Assessment and Plan as documented by the Slip Mixer. I provided real-time medical direction via phone for this encounter, and was available for additional phone based assistance as needed. I have reviewed and agree with the Assessment and Plan as documented by the Slip Mixer. I provided real-time medical direction via phone [...] 2022 023 [email or web address] 0 Main - [facility], [address] [place] [address], [id number] 3 15:01:01 rapid flu (A+B) 2022 023 [email or web address] 0 Main - [facility], [address] [place] [address], [id number] 3 15:01:01 rapid SARS CoV 2 Ag, QL IA, respiratory specimen 2021 022 [email or web address] 5 Main - [facility], [address] [place] [address], [id number] 2 16:18:02 rapid flu (A+B) 2021 022 [email or web address] 5 Main - [facility], [address] [place] [address], [id number] 2 16:18:02 rapid strep group A, throat 2021 022 [email or web address] 5 Main - [facility], [address] [place] [address], [phone] 2 16:18:02 Referral None recorded. Procedures None recorded. Surgeries None recorded. Imaging None recorded. Medication Orders albuterol sulfate 2.5 mg/3 mL (0.083 %) solution for nebulizatio n 2022 023 [email or web address] 0 Not available 3 15:04:06 albuterol sulfate 2.5 mg/3 mL (0.083 %) solution for nebulizatio n 2022 023 SAADIA [id number], [address], [place], [id number], 3 15:04:13 prednisone 20 mg tablet 2022 023 [email or web address] 0 Not available 3 15:04:06 prednisone 20 mg tablet 2022 023 B[id number], [address] [place], [place], [phone], 3 15:04:14 Patient TargetsNo targets recorded. Patient InstructionsNo instructions recorded. Reason for Referral None Reported. Results Created Date Observation Date Name Description Value Unit Range Abnormal Flag Note LastModifiedBy Organization Detail LastModifiedTime 04/27/20 22 04/27/2022 rapid strep group A, throa t Strep negati ve Not Available Main - [facility] ed [address] [place] [address], [id number] 04/27/2022 16:17:34 04/27/20 22 04/27/2022 rapid flu (A+B) Flu negati ve Not Available Main - [facility] ed [address] [place] [address], [id number] 04/27/2022 16:17:30 04/27/20 22 04/27/2022 rapid SARS CoV 2 Ag, QL IA, respi rator y speci men rapid SARS CoV 2 Ag, QL IA, respiratory specimen negati ve Not Available [facility] - [facility] ed [address] [place] [address], [phone] 04/27/2022 16:17:26 02/16/20 23 02/15/2023 rapid flu (A+B) Flu negati ve Not Available Main - [facility] ed [address] [place] [address], [phone] 02/15/2023 15:00:42 02/16/20 23 02/15/2023 rapid SARS CoV 2 Ag, QL IA, respi rator y speci men rapid SARS CoV 2 Ag, QL IA, respiratory specimen negati ve Not Available [facility] - [facility] ed [address] [place] [address], [phone] 02/15/2023 15:00:34 Result Notes None recorded. Medical Equipment None Reported. Allergies Allergen ID Allergen Name Allergen Category Reaction Reaction Severity Criticality Documentation Date Start Date Code Code System Note Provider Name and Address Organization Details Recorded Time 3232 Depakene medicatio n Not available Not available Not available 02/16/2023 5 RxNorm Chasity Mark MD [address] [place] [address],[address], [place], [phone], [employer] [place] - [facility], [employer] 3 13:18:24 3233 Dilantin medicatio n Not available Not available Not available 02/16/2023 0 RxNorm Chasity Mark MD [address] [place] [address],[address], [place], [phone], [facility] - [facility], [employer] 13:18:32 3234 Tegretol medicatio n Not available Not available Not available 02/16/2023 9 RxNorm Chasity Mark MD [address] [place] [address],[address], [place], [address], [facility] - [employer], [employer] 13:18:53 3235 erythromy akhil medicatio n Not available Not available Not available 02/16/2023 4053 RxNorm and ilosi ne Chasity Mark MD [address] [place] [address],[address], [place], [address], [employer] - [facility], [employer] 13:19:12 3236 Feldene medicatio n Not available Not available Not available 02/16/202319718 8 RxNorm Chasity Mark MD [address] [place] [address],[address], [place], [address], [employer] - [employer], [employer] 13:19:27 3237 Dolobid medicatio n Not available Not available Not available 02/16/202371963 6 RxNorm Chasity Mark MD [address] [place] [address],[address], [place], [address], [employer], [employer] 13:19:35 3238 Substance with sulfonami de structure and antibacte rial mechanism of action (substanc e) medicatio n Not available Not available Not available 02/16/2023 24498 8003 SNOMED Chasity Mark MD [address] [place] [address],[address], [place], [place], [address] [place] [address] 0, [employer] 3 13:19:43 3239 Product containin g penicilli n (product) medicatio n Not available Not available Not available 02/16/2023 22564 8001 SNOMED Not Available [facility] - [facility] 4 03:34:14 3240 codeine medicatio n Not available Not available Not available 02/16/2023 2670 RxNorm Chasity Mark MD [address] [place] [address],[address], [place], [address], [employer] 3 13:20:02 3241 lisinopri l medicatio n Not available Not available Not available 02/16/2023 05566 RxNorm She was on lisin opril /hydr ochlo rothi azide and does not know which moiet y she had the react ion to Chasity Mark MD [address] [place] [address],[address], [place], [place], [address] [place] [address] 0, [employer] 3 13:20:49 3242 adhesive tape environme nt,medica tion Not available Not available Not available 02/16/2023 Chasity Mark MD [address] [place] [address],[address], [place], [place], [address] [place] [address] 0, [employer] 3 13:21:07 7004 Bactrim medicatio n Not available Not available Not available 04/08/2024 18164 9 RxNorm Not Available [facility] 03:34:14 Medications Name [...] Updated DateTime 4 98 % 98 % 19894.0 4 g 98.8 [degF] 78 /min 152.4 cm 18 /min 139/77 mm[Hg] Not Available [facility] [employer] 4 11:54:32 Date Recorded Body temperature Oxygen [...] % 99 % 158/72 mm[Hg] Not Available [facility] - production 3 14:53:01 Date Recorded Body [...] /min 135/84 mm[Hg] 135/84 mm[Hg] Not Available [facility] - production 2 [...] Diagnosis SNOMED-CT Code Diagnosis ICD10 Code Diagnosis IMO Codes Diagnosis Note [id number] Ferny Harrison MD Main - [facility] [address] [place] [phone] 04/27/2022 11:06:08 05/02/2022 09:06:31 Cough 96723424 R05.9 [id number] Chasity Mark MD Main - [facility] [address] [place] [phone] 02/15/2023 14:52:47 02/15/2023 23:29:56 Viral upper respiratory tract infection 072580704 J06.9 Advised to increase p.o. hydration. rest [...] Advised to discuss further with her PCP [id number] Pa Garcia MD Main - [facility] [address] [place] [phone] 06/29/2023 11:10:17 07/21/2023 13:44:47 Low back pain 029540646 M54.50 [id number] Real Mojiac MD Main - [facility] [address] [place] [phone] 10/07/2023 13:32:33 10/07/2023 17:22:10 COVID-19 [id number] U07.1 This 68-year-ol d female with COPD [...] Dugan Member ID Guarantor Name 02/15/2023 1 [facility] - DOS PRIOR TO 2022 - DUAL ELIGIBLE (MEDICARE REPLACEMENT/ADV ANTAGE - HMO) Sarahy Neves [id number] Sarahy Neves 10/07/2023 1 [facility] - DOS ON OR AFTER 2022 - DUAL ELIGIBLE - PENITENTIARY OPTIONS AND ONE CARE (MEDICARE REPLACEMENT/ADV ANTAGE - HMO) Sarahy Neves [id number] Sarahy Neves Notes Date Note Type Note Provider Name and Address Organization Details Recorded Time 04/27/2022 text/html HPI: Mbr transferred to [facility] from [facility]. Mbr reports not feeling well since 04/23/22. 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 Mbr speaking full clear sentences with this creative services writer during call, no signs of SOB, [...] ..................... ..................... ..................... ..................... ..................... ..................... ............... Slip Mixer Note: Pt presents awake and alert c/o sinus/right ear pressure, congestion, non productive cough, dyspnea with exertion, and fatigue x4 days. Pt denies f/n/v/d, cp, and dizziness. LS: clear/equal bilaterally. Covid, flu, strep neg. [facility] contacted. Pt educated on supportive care and when to go to the ED. ..................... ..................... ..................... ..................... ..................... ..................... ............... Disposition: Fulfilled Ferny Harrison MD [address] [place] [address],[address], [place], [address], [employer] 04/27/2022 16:18:15 02/15/2023 text/html ROS as noted in the HPI HPI: FRANC is a 68 y/o female with a PMH of asthma, hx thyroid CA, positional vertigo, migraines, seizure disorder, sleep walking disorder, anxiety, HTN, orthostatic hypotension, HLD, non-compliance with medical tx, and depression. FRANC states that she saw her MD in December and h e heard wheezing in one of my lower lungs. FRANC has been taking inhalers, which are not helping as much anymore. FRANC states that her l ungs have been burning for a week ; she has a dry, nonproductive cough; a runny nose; and weakness. FRANC denies CP, fevers, wheezing, or radiating jaw/back pain. FRANC states she is d rinking and peeing fine, but my [...] file confirmed. FRANC can be reached at [phone]. ..................... ..................... ..................... ..................... ..................... ..................... ............... CRC Nursing Assessment: Comments: SOB that started this morning. History of asthma. Taking prescribed inhalers as needed. Used inhaler x1 today. + cough, non-productive x2 days. Voice sounds hoarse. Runny nose. No known fevers. Denies body aches, chills, or sore throat. ..................... ..................... ..................... ..................... ..................... ..................... ............... Slip Mixer Note From Liban Jacob: PT complains of [...] melena or hematochezia Chasity Mark MD [address] [facility],[address], [place], [address], [facility]EL[facility] JONATHAN 02/16/2023 13:25:30 06/29/2023 text/html HPI: Member calls [...] Rojo): Comments: HPI was reviewed by this creative services writer - No further information needed at this time. Waqas AQUINO ..................... ..................... ..................... ..................... ..................... ..................... ............... Slip Mixer Note From Stacie Han: Sent to a [...] test: neg; 12 lead ECG: uploaded to [employer]. BP:139/77, P:78, RR:18, SpO2:98% RA, T:98.8; Head: sinus tenderness; Throat: erythema noted, no edema or exudate; Chest: bilateral chest tenderness; Lung sounds: clear bilaterally; Abdomen: soft, non-tender, no distention; Back: no tenderness; Extremities: unremarkable; Skin: pink, warm, dry; [facility] consulted and will request earlier follow up appt with PCP. [facility] orders Ketorolac 15mg IM. Ketorolac 15mg IM administered without incident. Red flags discussed. Pt has no further questions. ..................... ..................... ..................... ..................... ..................... ..................... ............... Disposition: Fulfilled Pa Garcia MD [address] [place] [address],[address], [place], [phone], JONATHAN GRANT 07/20/2023 08:46:37 10/07/2023 text/html ROS as noted in the HPI HPI: mbr tested positive for covid on Sunday was prescribed paxlovid, states feeling worse with complaints of increased SOB/N/fever/chills/po or po intake, feeling dizzy lightheaded, and weak. requesting [facility] visit for evaluation Protocol Used: Cough - Acute Productive Protocol-Based Disposition: Consider MISTY Mcdaniel Community clinician, MD/BONDING AGENT triage, PCP, or Urgent Care Visit within [...] needed to process visit -MILES Mclaughlin MD [address] [place] [address],[address] [facility], [place], [address], [employer] 10/07/2023 13:37:29 OBGyn Episode No OBEpisode recorded.
--- OUTSIDE RECORDS SUMMARY | 2025-04-22 16:01 | XMS_ITS | Patient Health Record ---
Author Organization [facility] Address [address] [place] [address] Care Team Providers Care Community Health Consultant Name Role Phone MANDO TAMAYO Primary Care Provider Philippe Tsai Jr [phone] Allergies Allergen (clinical drug ingredient) Drug/Non [...] e a day Active Mag Oxide-Vit D3-Turmeric [phone] MG-UNIT-MG as directed Orally Active ProAir HFA [...] Status Risk Notes Problem Colon cancer screening (114980449) Colon cancer screening (Z12.11) Active confirmed Problem Screening for malignant neoplasm of colon (819720527) Encounter for screening for malignant neoplasm of colon (Z12.11) Active confirmed Problem Fatty liver (043203127) Fatty liver (K76.0) Active confirmed Problem Long-term current use of antiplatelet drug (288186828985794) Long-term use of aspirin therapy (Z79.82) Active confirmed Problem Hepatic hemangioma (94214331) Hepatic hemangioma (D18.03) Active confirmed Vital Signs Temperature 96.9 degrees Fahrenheit 09/15/2024 Blood pressure diastolic 01 mm Hg 09/15/2024 Height 60 in 09/15/2024 Blood pressure systolic 001 mm Hg 09/15/2024 Weight 116 lbs 09/15/2024 BMI 22.65 kg/m2 09/15/2024 Encounters Encounter Location Date Provider Diagnosis [facility] Outpatient [address] [place], [place] [id number] 11/25/2024 Philippe Price Jr Colon cancer screening Z12.11 and Personal history of adenomatous and serrated colon polyps Z86.0101 [facility] [address] [place] [phone] 09/15/2024 Philippe Price Jr Fatty liver K76.0 ; Hepatic hemangioma D18.03 and Encounter for screening for malignant neoplasm of colon Z12.11 [facility] [address] [place] [phone] 10/08/2024 Philippe Price Jr Assessments Encounter Date [...] Insured Coverage Start Date Coverage End Date [facility] [address] Attn Claims REBA Sanchez [id number] SWATHI BANDA MARIE Self - patient is [...]
--- OUTSIDE RECORDS SUMMARY | 2025-06-10 19:00 | XMS_ITS | Clinical Summary ---
Author Organization Unknown Care Team Providers Care District Plant Supervisor Name Role Phone RONI ALVARADO, MANDO Unavailable Unavailable RIZWANA AQUINO, FRED Unavailable Unavailable Payers Payer Name Policy Type Policy Number Effective Date Expira tion Date [facility] [id number] MEDICAID [facility] [id number] MEDICARE - [facility] [id number] Problems Condition Name Condition Details Condition Category [...] 12-14 00:00: 00 04-02 23:59 :00 No [id number] 1 tablet DAILY 1 tablet DAILY (route: oral) Med Classific ation: Hematolog ical Agents atorvastati n 80 mg tablet 12-14 00:00: 00 04-02 23:59 :00 No [id number] 1 tablet BEDTIME 1 tablet BEDTIME (route: oral) Med Classific ation: Cardiovas cular Therapy Agents cetirizine 10 mg tablet 12-14 00:00: 00 04-02 23:59 :00 No [id number] 1 tablet DAILY 1 tablet DAILY (route: oral) Med Classific ation: Respirato ry Therapy Agents clonazepam 0.5 mg tablet 12-14 00:00: 00 04-02 23:59 :00 No [id number] PRN FOR ANXIETY/MINH TATiON 1 tablet 2 TIMES DAILY 1 tablet 2 TIMES DAILY (route: oral) Med Classific ation: Central Nervous System Agents docusate sodium 100 mg capsule 12-14 00:00: 00 04-02 23:59 :00 No [id number] 1 capsule BEDTIME 1 capsule BEDTIME (route: oral) Med Classific ation: Gastroint estinal Therapy Agents ezetimibe 10 mg tablet 12-14 00:00: 00 04-02 23:59 :00 No [id number] 1 tablet DAILY 1 tablet DAILY (route: oral) Med Classific ation: Cardiovas cular Therapy Agents fludrocorti sone 0.1 mg tablet 12-14 00:00: 00 04-02 23:59 :00 No [id number] 1 tablet DAILY 1 tablet DAILY (route: oral) Med Classific ation: Endocrine folic acid 800 mcg tablet 12-14 00:00: 00 04-02 23:59 :00 No [id number] 1 tablet DAILY 1 tablet DAILY (route: oral) Med Classific ation: Electroly te Balance-N utritiona l Products levothyroxi ne 25 mcg tablet 12-14 00:00: 00 04-02 23:59 :00 No [id number] 1 tablet DAILY 1 tablet DAILY (route: oral) Med Classific ation: Endocrine magnesium 400 mg (as magnesium oxide) tablet 12-14 00:00: 00 04-02 23:59 :00 No [id number] 1 tablet BEDTIME 1 tablet BEDTIME (route: oral) Med Classific ation: Electroly te Balance-N utritiona l Products melatonin 10 mg tablet 12-14 00:00: 00 04-02 23:59 :00 No [id number] 1 tablet BEDTIME 1 tablet BEDTIME (route: oral) Med Classific ation: Central Nervous System Agents montelukast 10 mg tablet 12-14 00:00: 00 04-02 23:59 :00 No [id number] 1 tablet BEDTIME 1 tablet BEDTIME (route: oral) Med Classific ation: Respirato ry Therapy Agents sertraline 25 mg tablet 12-14 00:00: 00 01-19 23:59 :00 No [id number] 2 tablet DAILY 2 tablet DAILY (route: oral) Med Classific ation: Central Nervous System Agents sumatriptan 100 mg tablet 12-14 00:00: 00 04-02 23:59 :00 No [id number] 1 tablet DAILY 1 tablet DAILY (route: oral) Med Classific ation: Central Nervous System Agents topiramate 100 mg tablet 12-14 00:00: 00 04-02 23:59 :00 No [id number] 1 tablet 2 TIMES DAILY 1 tablet 2 TIMES DAILY (route: oral) Med Classific ation: Central Nervous System Agents sertraline 25 mg tablet 8 00:00: 00 04-02 23:59 :00 No [id number] 3 tablet EVERY AM 3 tablet EVERY AM (route: oral) Med Classific ation: Central Nervous System Agents memantine 7 mg capsule sprinkle,ex tended release 24hr 02-12 00:00: 00 02-16 23:59 :00 No [id number] 1 capsule DAILY 1 capsule DAILY (route: oral) Med Classific ation: Cognitive Disorder Therapy fluticasone propionate 50 mcg/actuati on nasal spray,suspe nsion 02-16 00:00: 00 04-02 23:59 :00 No [id number] 1 spray DAILY 1 spray DAILY (route: nasal) Med Classific ation: Respirato ry Therapy Agents memantine 14 mg capsule sprinkle,ex tended release 24hr 02-16 00:00: 00 04-02 23:59 :00 No [id number] 1 capsule DAILY 1 capsule DAILY (route: oral) Med Classific ation: Cognitive Disorder Therapy cefpodoxime 200 mg tablet 03-09 00:00: 00 04-02 23:59 :00 No [id number] 1 tablet 2 TIMES DAILY 1 tablet 2 TIMES DAILY (route: oral) Med Classific ation: Anti-Infe ctive Agents aspirin 81 mg tablet 2024-06 00:00: 00 Yes [id number] 1 tablet EVERY AM 1 tablet EVERY AM (route: oral) Med Classific ation: Hematolog ical Agents atorvastati n 80 mg tablet 2024-06 00:00: 00 Yes [id number] 1 tablet BEDTIME 1 tablet BEDTIME (route: oral) Med Classific ation: Cardiovas cular Therapy Agents cetirizine 10 mg tablet 2024-06 00:00: 00 Yes [id number] 1 tablet EVERY AM 1 tablet EVERY AM (route: oral) Med Classific ation: Respirato ry Therapy Agents clonazepam 0.5 mg tablet 2024-06 00:00: 00 Yes [id number] 1 tablet EVERY AM 1 tablet EVERY AM (route: oral) Med Classific ation: Central Nervous System Agents clonazepam 0.5 mg tablet 2024-06 00:00: 00 Yes [id number] 1 tablet BEDTIME 1 tablet BEDTIME (route: oral) Med Classific ation: Central Nervous System Agents docusate sodium 100 mg capsule 2024-06 00:00: 00 Yes [id number] 1 capsule BEDTIME 1 capsule BEDTIME (route: oral) Med Classific ation: Gastroint estinal Therapy Agents ezetimibe 10 mg tablet 2024-06 00:00: 00 Yes [id number] 1 tablet BEDTIME 1 tablet BEDTIME (route: oral) Med Classific ation: Cardiovas cular Therapy Agents fludrocorti sone 0.1 mg tablet 2024-06 00:00: 00 Yes [id number] 1 tablet EVERY AM 1 tablet EVERY AM (route: oral) Med Classific ation: Endocrine fluticasone propionate 50 mcg/actuati on nasal spray,suspe nsion 2024-06 00:00: 00 Yes [id number] 1 spray EVERY AM 1 spray EVERY AM (route: nasal) Med Classific ation: Respirato ry Therapy Agents folic acid 800 mcg tablet 2024-06 00:00: 00 Yes [id number] 1 tablet EVERY AM 1 tablet EVERY AM (route: oral) Med Classific ation: Electroly te Balance-N utritiona l Products levothyroxi ne 25 mcg tablet 2024-06 00:00: 00 Yes [id number] 1 tablet EVERY AM 1 tablet EVERY AM (route: oral) Med Classific ation: Endocrine magnesium 400 mg (as magnesium oxide) tablet 2024-06 00:00: 00 Yes [id number] 1 tablet BEDTIME 1 tablet BEDTIME (route: oral) Med Classific ation: Electroly te Balance-N utritiona l Products melatonin 10 mg tablet 2024-06 00:00: 00 Yes [id number] 1 tablet BEDTIME 1 tablet BEDTIME (route: oral) Med Classific ation: Central Nervous System Agents memantine 14 mg capsule sprinkle,ex tended release 24hr 2024-06 00:00: 00 Yes [id number] 1 capsule EVERY AM 1 capsule EVERY AM (route: oral) Med Classific ation: Cognitive Disorder Therapy montelukast 10 mg tablet 2024-06 00:00: 00 Yes [id number] 1 tablet BEDTIME 1 tablet BEDTIME (route: oral) Med Classific ation: Respirato ry Therapy Agents sertraline 25 mg tablet 2024-06 0 00:00: 00 Yes [id number] 4 tablet EVERY AM 4 tablet EVERY AM (route: oral) Med Classific ation: Central Nervous System Agents sumatriptan 100 mg tablet 2024-06 0 00:00: 00 Yes [id number] Per instruc tions NEEDED Per instructio ns NEEDED (route: oral) Med Classific ation: Central Nervous System Agents topiramate 100 mg tablet 2024-06 0 00:00: 00 Yes [id number] 1 tablet EVERY AM 1 tablet EVERY AM (route: oral) Med Classific ation: Central Nervous System Agents topiramate 100 mg tablet 2024-06 0 00:00: 00 Yes [id number] 1 tablet BEDTIME 1 tablet BEDTIME (route: oral) Med Classific ation: Central Nervous System Agents Vital Signs Vital Name Observation Time Observation Value Commen ts Pulse 2025-04-20 09:57:00.000 100 /min Pulse 2025-04-17 09:59:00.000 76 /min Pulse 2025-04-15 10:04:00.000 87 /min Pulse 2025-04-13 10:08:00.000 82 /min O2 Saturation (%) 2025-04-20 09:57:00.000 97 % O2 Saturation (%) 2025-04-15 10:04:00.000 98 % O2 Saturation (%) 2025-04-13 10:08:00.000 98 % Respirations 2025-04-20 09:57:00.000 20 /min Respirations 2025-04-17 09:59:00.000 20 /min Respirations 2025-04-15 10:04:00.000 20 /min Respirations 2025-04-13 10:08:00.000 20 /min Systolic Blood Pressure 2025-04-20 09:57:00.000 106 mm [Hg] Systolic Blood Pressure 2025-04-17 09:59:00.000 124 mm [Hg] Systolic Blood Pressure 2025-04-15 10:04:00.000 124 mm [Hg] Systolic Blood Pressure 2025-04-13 10:08:00.000 110 mm [Hg] Diastolic Blood Pressure 2025-04-20 09:57:00.000 [...] AWARENESS FOR SAFETY AND WILL NOTIFY CLINICAL FIRE PREVENTION CAPTAIN AND PHYSICIAN/PROVIDER WITH ANY CHANGE IN CONDITION. [code = SKILLED NURSE WILL MAINTAIN SITUATIONAL AWARENESS FOR SAFETY AND WILL NOTIFY CLINICAL FIRE PREVENTION CAPTAIN AND PHYSICIAN/PROVIDER WITH ANY CHANGE IN CONDITION.] Goal Patient Goal - T O STAY OUT OF THE HOSPITAL. Goal 2025-02-11 Patient Goal - T O STAY OUT OF THE HOSPITAL. Goal 2025-04-08 Patient Goal - T O STAY OUT OF THE HOSPITAL. Goal Provider Goal - A PLAN OF CARE WILL BE ESTABLISHED THAT MEETS PATIENT'S HALF-WAY NEEDS AND INCLUDES PATIENT GOAL FOR HOME [...] End Date/Time Encounter Type Admission Type Attending Clinicians Care Facility Care Department Encounter ID Discharge Date Discharge Status Discharge Condition Discharge Reason Percent Goals Met 2025-04-13 00:00:00 2025-06-11 00:00:00 Outpatient RECERTIFIC FRED MCARTHUR [facility] [id number] 83.33
== END 2025-04-22 14:47 | disposition home or self-care (01) ==
LOC: HO.HSMS 13:14
PROVIDERS: PCP Nurse Practitioner Family; Visit Provider Nurse Practitioner Family
DX: R55 Syncope and collapse (principal); F44.5 Conversion disorder with seizures or convulsions; W19.XXXD Unspecified fall, subsequent encounter; F33.9 Major depressive disorder, recurrent, unspecified; G43.709 Chronic migraine without aura, not intractable, without status migrainosus
CPT/HCPCS: 99214

== ENCOUNTER → 2025-04-22 13:14 | Outpatient (BNVA) | payer OTHER, SELFPAY | PROVIDERS: PCP Nurse Practitioner Family; Visit Provider Nurse Practitioner Family | DX: R55 Syncope and collapse (principal); F44.5 Conversion disorder with seizures or convulsions; F33.9 Major depressive disorder, recurrent, unspecified; G43.709 Chronic migraine without aura, not intractable, without status migrainosus; R29.6 Repeated falls; R25.1 Tremor, unspecified | CPT/HCPCS: 99212 ==

== ENCOUNTER 2025-04-27 14:07 | Outpatient (REF) | payer OTHER, SELFPAY ==
--- OUTSIDE RECORDS SUMMARY | 2024-11-25 06:50 | XMS_ITS ---
Author Organization [facility] Address [address] [place] [address] Care Team Providers Care Tick Sewer Name Role Phone MANDO TAMAYO Primary Care Provider Philippe Tsai Jr REASON FOR VISIT screening Encounters Encounter Location Date Provider Diagnosis [facility] Out[place] [address] [place] [id number] 11/25/2024 Philippe Price Jr Colon cancer screening [...] * SWATHI BANDAOB: [birth year] (70 yo F)Acc No.[id number]:11/25/2024 COLON WITH MAC Patient: Allison NOWAKSWATHI Provider: Allison Price MD :1955 A ge:69 Y S ex:Female Date:11/25/2024 Address:[address] [place], [place] [id number] Pcp:MANDO TAMAYO Subjective: * Chief Complaints: * S creening Assessment: * Assessment: 1. C olon cancer screening - Z12.11 (Primary) 2 . P ersonal history of adenomatous and serrated colon polyps - Z86.0101 Plan: * Procedure Codes: 4 5378 DIAGNOSTIC [id number] INTRVL 3+YRS PTS CLNSCP [id number] RCMND FLW-UP 10 YRS DOCD Billing Information: * Procedure Codes: 49387 DIAGNOSTIC COLONOSCOPY. 0529F INTRVL 3+YRS PTS CLNSCP DOCD. 0528F RCMND FLW-UP 10 YRS DOCD. * The named appointment provid er may or may not be the originator of this progress note, and it is not deemed complete until electronically signed by the appointment provider. Sign off status: Pending * Provider: Allison Price MD Date: 0 11/25/2024 Generated for Elisa barbosa/Silas/Matiitting on: 1 06/28/2024 07:01 AM EST
--- OUTSIDE RECORDS SUMMARY | 2025-01-08 10:30 | XMS_ITS ---
Author Organization [employer] Address [address] [facility] [address] [place] [address] Care Team Providers Care Spooler Rubber Strand Name Role Phone Case Duff Primary Care Provider UnavailSebastien Lewis Unavailable [phone] Falguni Madsen Unavailable [phone] REASON FOR VISIT pt called and she is still in [place] Medications Medication SIG (Take, Route, Frequency, Duration) [...] Active Encounters Encounter Location Date Provider Diagnosis [address] [address] 01/08/2025 Falguni Madsen Plan Of Treatment Next Appt Details Provider Name:Falguni moody, 05/13/2025 10:30:00 AM, [address] [place] [address], [phone], Progress Notes * Sarahy NEVES MDOB:[birth year] (70 yo F)Acc No.[id number]:01/08/2025 Progress Note Patient: Sarahy RICHARDS Provider: Connie Madsen, RN, SENIOR QA ANALYST-C, MENSWEAR SALESPERSON :1955 A ge:70 Y S ex:Female Date:01/08/2025 Address:[address] [place] [address] [id number] Pcp:Case Duff Subjective: * Chief Complaints: * 1 . pt called and she is still in [place]. 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 Patient has been out of facility for several years and has been referred back to WOOD AND HARDWARE OUTFITTER for specialized management of FND. Patient does [...] Electronic signature of MITCH Schmitt CNP on 04/28/2025 at 06:58 AM EST Sign off status: Pending * Provider: Connie Madsen RN, ELENA MEYER Date: 0 01/08/2025 Generated for Printing/Fareidg/eTransmitting on: 06/28/2024 06:58 AM EST
--- OUTSIDE RECORDS SUMMARY | 2025-02-20 06:30 | XMS_ITS ---
Author Organization [facility] [employer] [facility] Address [address] [place] [address] Care Team Providers Care Billing Analyst Name Role Phone Case Duff Primary Care Provider Sebastien Byrnes Unavailable [phone] Falguni Madsen Unavailable [phone] REASON FOR VISIT 1-2 month f/u- f/u on seizures, echocardiogram Encounters Encounter Location Date Provider Diagnosis [facility] [employer] [address] [address] 02/20/2025 Falguni Madsen Plan Of Treatment Next Appt Details Provider Name:Falguni moody, 05/13/2025 10:30:00 AM, [address] [place] [address], [phone], Progress Notes * Sarahy NEVES MDOB:[birth year] (70 yo F)Acc No.[id number]:02/20/2025 Progress Note Patient: Sarahy RICHARDS Provider: Connie Madsen RN, POLICE ACADEMY INSTRUCTOR-C, ELEPHANT KEEPER :1955 A ge:70 Y S ex:Female Date:02/20/2025 Address:[address] [place] [address] [id number] Pcp:Case Duff Subjective: * Chief Complaints: * 1 . 1-2 month f/u- f/u on seizures, echocardiogram. * Medical History: Objective: * Vitals: Assessment: Plan: * Treatment: * * Electronic signature of MITCH Schmitt CNP on 04/28/2025 at 06:59 AM EST Sign off status: Pending * Provider: Connie Madsen RN, ELENA MEYER Date: 0 02/20/2025 Generated for Printing/Faxing/eTransmitting on: 06/28/2024 06:59 AM EST
[2025-04-27 17:41] LABS: Resp Syncy Virus RNA Qual PCR NEGATIVE (Negative); SARS COV2 PCR INHOUSE NEGATIVE (Negative)
--- OUTSIDE RECORDS SUMMARY | 2025-04-28 07:02 | XMS_ITS | Patient Health Record ---
Author Organization [facility] Address [address] [place] [address] Care Team Providers Care Blackjack Pit Boss Name Role Phone Madhavialis Case Primary Care Provider UnavailSebastien Lewis Unavailable [phone] GABRIELLE BOO Unavailable [phone] Falguni Madsen Unavailable [phone] Allergies Allergen (clinical drug ingredient) Drug/Non Drug [...] Value Reference Range Notes MR-Brain (C-) CPT 39596 Reviewed date:01/12/2025 10:12:33 AM Interpretation: Performing Lab: Notes/Report: Echocardiogram Reviewed date:01/16/2025 01:09:52 PM Interpretation: Performing Lab: Notes/Report: Records Request Reviewed date:03/12/2025 11:06:53 AM Interpretation: Performing Lab: Notes/Report: Reason For [...] W/U Status Risk Notes Problem Mood disorder (10898559) Mood disorder (F39) Active confirmed Problem Seizure disorder (901901182) Seizure disorder (G40.909) Active confirmed Problem Sleep disturbance (97455173) Sleep disturbance, unspecified (G47.9) Active confirmed Problem [...] Encounters Encounter Location Date Provider Diagnosis [address] [address] 11/20/2024 Sebastien Myrick 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 ; Sleep disturbance, unspecified G47.9 ; Seizure disorder G40.909 and Mood disorder F39 [facility] [address] [address] 01/16/2025 Falguni Madsen 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 Boo, and FND specialist here at [facility], has availability to also evaluate [...] Arceo (Author) Recommended resources: - [email or web address] - [place] resources- GOOD for patients and families- handouts, videos explaining the neurobio of FND [email or web address]/ patient_care/[email or web address] Website by Dr. Anil Joe [...] R55) she is undergoing workup for this- anode adjuster, EEG pending results. Recommended echo to complete [...] evidence of infarct. She is already wearing anode adjuster and has EEG ordered. Recommended echo to [...] (Author), Gatito Crouch (Author), Jerald Arceo (Author) [place] resources- GOOD for patients and families- handouts, videos explaining the neurobio of FND [email or web address]/ patient_care/fnd.[facility] website by Dr. Anil Joe [...] referring to and communicating with other health critical care transport nurse, documenting clinical information in the record, counseling, providing instructions and answering the patient's questions. The patient understands and agrees with the plan of care outlined. This note was generated with voice recognition software. Please excuse any errors which may have been overlooked during review. Sometimes these errors may affect the content or meaning of a given sentence. If any questions, please contact the [facility] office at [phone]. Plan Of Treatment Pending Test Test Name Order Date Obtain prior medical records 01/16/2025 Next Appt Details Provider Name:Falguni Ori moody, 05/13/2025 10:30:00 AM, [address], [address], [place], [address], Insurance Providers Payer Name Payer Address Payer Phone Subscriber Number Group Number Insured Name Patient Relationship to Insured Coverage Start Date Coverage End Date [facility] [address] [place] [address] [id number] Sarahy Neves Self - patient is the insured MEDICARE [address] [place], [place] [id number] Sarahy Neves Marie Self - patient is the insured [email or web address] [address] [place] [address] [id number] Humbertomatthew Leida Self - patient is the [...]
--- OUTSIDE RECORDS SUMMARY | 2025-04-28 07:03 | XMS_ITS | Patient Health Record ---
Author Organization [facility] Address [address] [place] [address] Care Team Providers Care Manager Psychology Name Role Phone MANDO TAMAYO Primary Care Provider Philippe Tsai Jr [phone] Allergies Allergen (clinical drug ingredient) Drug/Non Drug Allergy documented on EMR Reaction Allergy Type Onset Date Status sulfamethoxazole / trimethoprim Bactrim Unknown Drug Allergy Active codeine Codeine Sulfate Unknown Drug Allergy A ctive valproate Depakote Unknown Drug Allergy Active phenytoin Dilantin Unknown Drug Allergy Active erythromycin Erythromycin Unknown Drug Allergy A ctive piroxicam Feldene Unknown Drug Allergy Active hydrochlorothiazide / lisinopril Lisinopril-Hydrochl orothiazide Unknown Drug Allergy Active carbamazepine Tegretol Unknown Drug Allergy Act roopa Penicillin Unknown Drug Allergy Active Sulfa Unknown Drug Allergy Active Adhesive Tape Unknown Drug Allergy Act roopa diflunisal Dolobid Unknown Drug Allergy Active Reason For Referral No Information Medications Medication SIG (Take, Route, Frequency, Duration) Notes Start Date End Date Status clonazePAM 0.5 MG Tablet 1 tablet at bed time Orally as directed Active Levothyroxine Sodium 25 MCG Tablet 1 tablet on an empty stomach in the morning Orally Once a day Active FLUoxetine HCl 10 MG Capsule 1 capsule in the morning Orally Once a day Active Colace 100 MG Capsule 1 capsule as neede d Orally Once a day Active Meclizine HCl 25 MG Tablet Chewable 1 tablet as needed Orally Once a day Active traZODone HCl 100 MG Tablet 1/2 tablet a t bedtime Orally Once a day Active Topamax 100 MG Tablet 1 tablet Orally Tw ice a day Active Mag Oxide-Vit D3-Turmeric [phone] MG-UNIT-MG Tablet as directed Orally Active ProAir HFA 108 (90 Base) MCG/ACT Aerosol Solution 2 puffs as needed Inhalation every 6 hrs Active Aspir-81 81 MG Tablet Delayed Release 1 tablet Orally Once a day Active Vitamin B-2 100 MG Tablet 1 tablet Orall y Once a day Active Fluticasone Propionate 50 MCG/DOSE Suspension 2 spray in each nostril Nasally Once a day Active Topiramate 100 MG Tablet 1 tablet Orally Twice a day Active Albuterol Sulfate (2.5 MG/3ML) 0.083% Nebulization Solution 3 ml as needed Inhalation Three times a day Active MiraLax - Packet 1 packet mixed with 8 ounces of fluid Orally Once a day as needed Active Fludrocortisone Acetate 0.1 MG Tablet 1 tablet Orally Once a day Active Montelukast Sodium 10 MG Tablet 1 tablet Orally Once a day Active Alendronate Sodium 70 MG/75ML Solution 75 mL 30 minutes before the first food, beverage or medicine of the day with plain water Orally Active Atorvastatin Calcium 40 MG Tablet 1 tablet Orally Once a day Active Advair Diskus 250-50 MCG/DOSE Miscellaneous 1 puff Inhalation Twice a day Active SUMAtriptan Succinate 100 MG Tablet 1 tablet as needed Orally prn Active Vitamin D 1000 UNIT Tablet 1 tablet Oral ly Once a day Active Ibuprofen 400 MG Tablet 1 tablet with fo od or milk as needed Orally Three times a day Active Immunizations Vaccine Route Administration Date Status Comme nts Influenza Unknown 09/15/2024 Refused Social History Tobacco Use: Social History Observation Description Date Details (start date - stop date) Never Smoker NA - NA Social History Drugs/Alcohol: Social Info Question Answer Notes Alcohol Screen Did you have a drink containing alcohol in the past year? No Points 0 Interpretation Negative Tobacco Use: Social Info Question Answer Notes Tobacco Use/Smoking Patient is a nonsmoker Additional Details Category Social Info Options Details Miscellaneous: Marital status: single Occupation: disabled Problems Problem Type SNOMED Code ICD Code Onset Dates Problem Status W/U Status Risk Notes Problem Colon cancer screening (559735435) Colon cancer screening (Z12.11) Active confirmed Problem Screening for malignant neoplasm of colon (701105458) Encounter for screening for malignant neoplasm of colon (Z12.11) Active confirmed Problem Fatty liver (781235756) Fatty liver (K76.0) Active confirmed Problem Long-term current use of antiplatelet drug (078289067941152) Long-term use of aspirin therapy (Z79.82) Active confirmed Problem Hepatic hemangioma (88633963) Hepatic hemangioma (D18.03) Active confirmed Vital Signs Temperature 96.9 degrees Fahrenheit 09/15/2024 Blood pressure diastolic 01 mm Hg 09/15/2024 Height 60 in 09/15/2024 Blood pressure systolic 001 mm Hg 09/15/2024 Weight 116 lbs 09/15/2024 BMI 22.65 kg/m2 09/15/2024 Encounters Encounter Location Date Provider Diagnosis [facility] [address], [place] [id number] 11/25/2024 Philippe Price Jr Colon cancer screening Z12.11 and Personal history of adenomatous and serrated colon polyps Z86.0101 [facility] [address] [place] [address] 09/15/2024 Philippe Price Jr Fatty liver K76.0 ; Hepatic hemangioma D18.03 and Encounter for screening for malignant neoplasm of colon Z12.11 [facility] [address] [place] [address] 10/08/2024 Philippe Price Jr Assessments Encounter Date [...] Insured Coverage Start Date Coverage End Date [facility] [address] Attn Claims REBA Sanchez [id number] SWATHI BANDA Self - patient is the insured Medical (General) History Medical History History ICD Code asthma thyroid cancer allergies depression anxiety seizures gait problems migraine headaches sleep walking conversion disorder insomnia night terrors rhinitis allergies Surgical History Surgery Date(Month/Year) hysterectomy rotator cuff tear repair left knee arthroscopy ankle surgery right knee arthroscopy thyroidectomy esophageal leiomyoma resection segmental colectomy for endometriosis esophagus mediastirial tumor colonic tumoc arthroscopy right knee left thyroid lobectomy partial right knee cartridge right foot ankle arthroscopy left knee arthroscopy shoulder
--- OUTSIDE RECORDS SUMMARY | 2025-06-10 19:00 | XMS_ITS | Clinical Summary ---
Author Organization Unknown Care Team Providers Care Lamp Mechanic Name Role Phone RONI ALVARADO, MANDO Unavailable Unavailable RIZWANA AQUINO, FRED Unavailable Unavailable Payers Payer Name Policy Type Policy Number Effective Date Expira tion Date [facility] [id number] MEDICAID [facility] [id number] MEDICARE - [facility] [id number] Problems Condition Name Condition Details Condition Category [...] 81 mg chewable tablet 12-14 00:00: 00 04-02 23:59 :00 No [id number] 1 tablet DAILY 1 tablet DAILY (route: oral) Med Classific ation: Hematolog ical Agents atorvastati n 80 mg tablet 12-14 00:00: 00 04-02 23:59 :00 No [id number] 1 tablet BEDTIME 1 tablet BEDTIME (route: oral) Med Classific ation: Cardiovas cular Therapy Agents cetirizine 10 mg tablet 12-14 00:00: 00 04-02 23:59 :00 No [id number] 1 tablet DAILY 1 tablet DAILY (route: oral) Med Classific ation: Respirato ry Therapy Agents clonazepam 0.5 mg tablet 12-14 00:00: 00 04-02 23:59 :00 No [id number] PRN FOR ANXIETY/MINH TATiON 1 tablet 2 TIMES DAILY 1 tablet 2 TIMES DAILY (route: oral) Med Classific ation: Central Nervous System Agents docusate sodium 100 mg capsule 12-14 00:00: 00 04-02 23:59 :00 No [id number] 1 capsule BEDTIME 1 capsule BEDTIME (route: oral) Med Classific ation: Gastroint estinal Therapy Agents ezetimibe 10 mg tablet 12-14 00:00: 00 04-02 23:59 :00 No [id number] 1 tablet DAILY 1 tablet DAILY (route: oral) Med Classific ation: Cardiovas cular Therapy Agents fludrocorti sone 0.1 mg tablet 12-14 00:00: 00 04-02 23:59 :00 No [id number] 1 tablet DAILY 1 tablet DAILY (route: oral) Med Classific ation: Endocrine folic acid 800 mcg tablet 12-14 00:00: 00 04-02 23:59 :00 No [id number] 1 tablet DAILY 1 tablet DAILY (route: oral) Med Classific ation: Electroly te Balance-N utritiona l Products levothyroxi ne 25 mcg tablet 12-14 00:00: 00 04-02 23:59 :00 No [id number] 1 tablet DAILY 1 tablet DAILY (route: oral) Med Classific ation: Endocrine magnesium 400 mg (as magnesium oxide) tablet 12-14 00:00: 00 04-02 23:59 :00 No [id number] 1 tablet BEDTIME 1 tablet BEDTIME (route: oral) Med Classific ation: Electroly te Balance-N utritiona l Products melatonin 10 mg tablet 12-14 00:00: 00 04-02 23:59 :00 No [id number] 1 tablet BEDTIME 1 tablet BEDTIME (route: oral) Med Classific ation: Central Nervous System Agents montelukast 10 mg tablet 12-14 00:00: 00 04-02 23:59 :00 No [id number] 1 tablet BEDTIME 1 tablet BEDTIME (route: oral) Med Classific ation: Respirato ry Therapy Agents sertraline 25 mg tablet 12-14 00:00: 00 01-19 23:59 :00 No [id number] 2 tablet DAILY 2 tablet DAILY (route: oral) Med Classific ation: Central Nervous System Agents sumatriptan 100 mg tablet 12-14 00:00: 00 04-02 23:59 :00 No [id number] 1 tablet DAILY 1 tablet DAILY (route: oral) Med Classific ation: Central Nervous System Agents topiramate 100 mg tablet 12-14 00:00: 00 04-02 23:59 :00 No [id number] 1 tablet 2 TIMES DAILY 1 tablet 2 TIMES DAILY (route: oral) Med Classific ation: Central Nervous System Agents sertraline 25 mg tablet 8 00:00: 00 04-02 23:59 :00 No [id number] 3 tablet EVERY AM 3 tablet EVERY AM (route: oral) Med Classific ation: Central Nervous System Agents memantine 7 mg capsule sprinkle,ex tended release 24hr 02-12 00:00: 00 02-16 23:59 :00 No [id number] 1 capsule DAILY 1 capsule DAILY (route: oral) Med Classific ation: Cognitive Disorder Therapy fluticasone propionate 50 mcg/actuati on nasal spray,suspe nsion 02-16 00:00: 00 04-02 23:59 :00 No [id number] 1 spray DAILY 1 spray DAILY (route: nasal) Med Classific ation: Respirato ry Therapy Agents memantine 14 mg capsule sprinkle,ex tended release 24hr 02-16 00:00: 00 04-02 23:59 :00 No [id number] 1 capsule DAILY 1 capsule DAILY (route: oral) Med Classific ation: Cognitive Disorder Therapy cefpodoxime 200 mg tablet 03-09 00:00: 00 04-02 23:59 :00 No [id number] 1 tablet 2 TIMES DAILY 1 tablet 2 TIMES DAILY (route: oral) Med Classific ation: Anti-Infe ctive Agents aspirin 81 mg tablet 2024-06 00:00: 00 Yes [id number] 1 tablet EVERY AM 1 tablet EVERY AM (route: oral) Med Classific ation: Hematolog ical Agents atorvastati n 80 mg tablet 2024-06 00:00: 00 Yes [id number] 1 tablet BEDTIME 1 tablet BEDTIME (route: oral) Med Classific ation: Cardiovas cular Therapy Agents cetirizine 10 mg tablet 2024-06 00:00: 00 Yes [id number] 1 tablet EVERY AM 1 tablet EVERY AM (route: oral) Med Classific ation: Respirato ry Therapy Agents clonazepam 0.5 mg tablet 2024-06 00:00: 00 Yes [id number] 1 tablet EVERY AM 1 tablet EVERY AM (route: oral) Med Classific ation: Central Nervous System Agents clonazepam 0.5 mg tablet 2024-06 00:00: 00 Yes [id number] 1 tablet BEDTIME 1 tablet BEDTIME (route: oral) Med Classific ation: Central Nervous System Agents docusate sodium 100 mg capsule 2024-06 00:00: 00 Yes [id number] 1 capsule BEDTIME 1 capsule BEDTIME (route: oral) Med Classific ation: Gastroint estinal Therapy Agents ezetimibe 10 mg tablet 2024-06 00:00: 00 Yes [id number] 1 tablet BEDTIME 1 tablet BEDTIME (route: oral) Med Classific ation: Cardiovas cular Therapy Agents fludrocorti sone 0.1 mg tablet 2024-06 00:00: 00 Yes [id number] 1 tablet EVERY AM 1 tablet EVERY AM (route: oral) Med Classific ation: Endocrine fluticasone propionate 50 mcg/actuati on nasal spray,suspe nsion 2024-06 00:00: 00 Yes [id number] 1 spray EVERY AM 1 spray EVERY AM (route: nasal) Med Classific ation: Respirato ry Therapy Agents folic acid 800 mcg tablet 2024-06 00:00: 00 Yes [id number] 1 tablet EVERY AM 1 tablet EVERY AM (route: oral) Med Classific ation: Electroly te Balance-N utritiona l Products levothyroxi ne 25 mcg tablet 2024-06 00:00: 00 Yes [id number] 1 tablet EVERY AM 1 tablet EVERY AM (route: oral) Med Classific ation: Endocrine magnesium 400 mg (as magnesium oxide) tablet 2024-06 00:00: 00 Yes [id number] 1 tablet BEDTIME 1 tablet BEDTIME (route: oral) Med Classific ation: Electroly te Balance-N utritiona l Products melatonin 10 mg tablet 2024-06 00:00: 00 Yes [id number] 1 tablet BEDTIME 1 tablet BEDTIME (route: oral) Med Classific ation: Central Nervous System Agents memantine 14 mg capsule sprinkle,ex tended release 24hr 2024-06 00:00: 00 Yes [id number] 1 capsule EVERY AM 1 capsule EVERY AM (route: oral) Med Classific ation: Cognitive Disorder Therapy montelukast 10 mg tablet 2024-06 00:00: 00 Yes [id number] 1 tablet BEDTIME 1 tablet BEDTIME (route: oral) Med Classific ation: Respirato ry Therapy Agents sertraline 25 mg tablet 2024-06 0 00:00: 00 Yes [id number] 4 tablet EVERY AM 4 tablet EVERY AM (route: oral) Med Classific ation: Central Nervous System Agents sumatriptan 100 mg tablet 2024-06 0 00:00: 00 Yes [id number] Per instruc tions NEEDED Per instructio ns NEEDED (route: oral) Med Classific ation: Central Nervous System Agents topiramate 100 mg tablet 2024-06 0 00:00: 00 Yes [id number] 1 tablet EVERY AM 1 tablet EVERY AM (route: oral) Med Classific ation: Central Nervous System Agents topiramate 100 mg tablet 2024-06 0 00:00: 00 Yes [id number] 1 tablet BEDTIME 1 tablet BEDTIME (route: oral) Med Classific ation: Central Nervous System Agents Vital Signs Vital Name Observation Time Observation Value Commen ts Pulse 2025-04-24 09:10:00.000 75 /min Pulse 2025-04-22 09:53:00.000 68 /min Pulse 2025-04-20 09:57:00.000 100 /min Pulse 2025-04-17 09:59:00.000 76 /min Pulse 2025-04-15 10:04:00.000 87 /min Pulse 2025-04-13 10:08:00.000 82 /min O2 Saturation (%) 2025-04-20 09:57:00.000 97 % O2 Saturation (%) 2025-04-15 10:04:00.000 98 % O2 Saturation (%) 2025-04-13 10:08:00.000 98 % Respirations 2025-04-24 09:10:00.000 20 /min Respirations 2025-04-22 09:53:00.000 20 /min Respirations 2025-04-20 09:57:00.000 20 /min Respirations 2025-04-17 09:59:00.000 20 /min Respirations 2025-04-15 10:04:00.000 20 /min Respirations 2025-04-13 10:08:00.000 20 /min Systolic Blood Pressure 2025-04-24 09:10:00.000 115 mm [Hg] Systolic Blood Pressure 2025-04-22 09:53:00.000 120 mm [Hg] Systolic Blood Pressure 2025-04-20 09:57:00.000 106 mm [Hg] Systolic Blood Pressure 2025-04-17 09:59:00.000 124 mm [Hg] Systolic Blood Pressure 2025-04-15 10:04:00.000 124 mm [Hg] Systolic Blood Pressure 2025-04-13 10:08:00.000 110 mm [Hg] Diastolic Blood Pressure 2025-04-24 09:10:00.000 77 mm [Hg] Diastolic Blood Pressure 2025-04-22 09:53:00.000 60 mm [Hg] Diastolic Blood Pressure 2025-04-20 09:57:00.000 70 mm [Hg] Diastolic Blood Pressure 2025-04-17 09:59:00.000 72 mm [Hg] Diastolic Blood Pressure 2025-04-15 10:04:00.000 64 mm [Hg] Diastolic Blood Pressure 2025-04-13 10:08:00.000 60 mm [Hg] Plan of Treatment Planned Activity Planned Date Details Comments Future Scheduled Test SKILLED NU RSE TO EVALUATE PATIENT, IDENTIFY PRIMARY AND CO-MORBID CONDITIONS CODED PER CODING GUIDELINES, AND DEVELOP PATIENT SPECIFIC PLAN OF CARE THAT INCLUDES PATIENT GOAL FOR HOME HEALTH. PLAN OF CARE TO INCLUDE 3 PRN VISIT(S) FOR OASIS DATA COLLECTION/COMPREHENSIVE ASSESSMENT AT TIMEPOINTS PER FEDERAL REGULATIONS. THIS INCLUDES VISITS FOR MARISSA, RECERT, SCIC, AND/OR DC. [code = SKILLED NURSE TO EVALUATE PATIENT, IDENTIFY PRIMARY AND CO-MORBID CONDITIONS CODED PER CODING GUIDELINES, AND DEVELOP PATIENT SPECIFIC PLAN OF CARE THAT INCLUDES PATIENT GOAL FOR HOME HEALTH. PLAN OF CARE TO INCLUDE 3 PRN VISIT(S) FOR OASIS DATA COLLECTION/COMPREHENSIVE ASSESSMENT AT TIMEPOINTS PER FEDERAL REGULATIONS. THIS INCLUDES VISITS FOR MARISSA, RECERT, SCIC, AND/OR DC.] Future Scheduled Test SKILLED NU RSE TO PRE-POUR MEDICATION PER MEDICATION LIST WEEKLY [code = SKILLED NURSE TO PRE-POUR MEDICATION PER MEDICATION LIST WEEKLY] Future Scheduled Test PATIENT MA Y HAVE ONE SET OF EMERGENCY MEDICATION NOT TO BE PRE-POURED ANY SOONER THAN 24 HOURS BEFORE SEVERE INCLEMENT WEATHER OR EMERGENT EVENT AND FOLLOWING SKILLED NURSE EVALUATION OF PATIENT SAFETY. [code = PATIENT MAY HAVE ONE SET OF EMERGENCY MEDICATION NOT TO BE PRE-POURED ANY SOONER THAN 24 HOURS BEFORE SEVERE INCLEMENT WEATHER OR EMERGENT EVENT AND FOLLOWING SKILLED NURSE EVALUATION OF PATIENT SAFETY.] Future Scheduled Test SKILLED NU RSE [...] WITH EXACERBATION FOR EARLY INTERVENTION OF COMPLICATIONS WEEKLY [code = SKILLED NURSE FOR O/A OF GENERAL HEALTH STATUS OF PAIN, CARDIAC, RESPIRATORY, GASTROINTESTINAL, GENITOURINARY, SKIN, NEUROLOGIC, ENDOCRINE SYSTEMS TO IDENTIFY CHANGES ASSOCIATED WITH EXACERBATION FOR EARLY INTERVENTION OF COMPLICATIONS WEEKLY] Future Scheduled Test SKILLED NU RSE [...] INJURY SECONDARY TO SEIZURE DISORDER/IMPAIRED NEUROLOGICAL STATUS.] Future Scheduled Test SKILLED NU RSE TO [...] Test SKILLED NU RSE FOR O/A OF MUSCULOSKELETAL STATUS AND TEACHING ON MEASURES TO MANAGE FALL RISK AND TO MAINTAIN SAFETY WITH ACTIVITY [code = SKILLED NURSE FOR O/A OF MUSCULOSKELETAL STATUS AND TEACHING ON MEASURES TO MANAGE FALL RISK AND TO MAINTAIN SAFETY WITH ACTIVITY] Future Scheduled Test SKILLED NU RSE TO [...] SERVICES.] Future Scheduled Test SKILLED NU RSE WILL MAINTAIN SITUATIONAL AWARENESS FOR SAFETY AND WILL NOTIFY CLINICAL SENIOR IT RECRUITER AND PHYSICIAN/PROVIDER WITH ANY CHANGE IN CONDITION. [code = SKILLED NURSE WILL MAINTAIN SITUATIONAL AWARENESS FOR SAFETY AND WILL NOTIFY CLINICAL SENIOR IT RECRUITER AND PHYSICIAN/PROVIDER WITH ANY CHANGE IN CONDITION.] Goal 2025-04-08 Patient Goal - T O STAY OUT OF THE HOSPITAL. Goal 2025-02-11 Patient Goal - T O STAY OUT OF THE HOSPITAL. Goal Patient Goal - T O STAY OUT OF THE HOSPITAL. Goal Provider Goal - A PLAN OF CARE WILL BE ESTABLISHED THAT MEETS PATIENT'S CORRECTION NEEDS AND INCLUDES PATIENT GOAL FOR HOME HEALTH. Goal Provider Goal - PATIENT WILL COMPLY WITH MEDICATION WHEN SKILLED NURSE PRE-POURS MEDICATION THROUGHOUT CERTIFICATION PERIOD. Goal Provider Goal - MEDICATION WILL BE AVAILABLE DURING INCLEMENT WEATHER OR EMERGENT EVENT THROUGHOUT CERTIFICATION PERIOD. Goal Provider Goal - [...] Goal Provider Goal - PATIENT/CAREGIVER WILL VERBALIZE/DEMONSTRATE ABILITY TO MANAGE FALL RISK WHILE MAINTAINING SAFETY THROUGHOUT THE EPISODE. Goal Provider Goal - PSYCHOSOCIAL NEEDS WILL BE IDENTIFIED AND PLAN IMPLEMENTED TO MINIMIZE RISK THROUGHOUT CERTIFICATION PERIOD. Goal Provider Goal - PATIENT WILL REMAIN SAFE IN THE COMMUNITY AND WILL BE FREE OF DANGER TO SELF AND OTHERS THROUGHOUT THE CERTIFICATION PERIOD. Encounters Start Date/Time End Date/Time Encounter Type Admission Type Attending [facility] Care Facility Care Department Encounter ID Discharge Date Discharge Status Discharge Condition Discharge Reason Percent Goals Met 2025-04-13 00:00:00 2025-06-11 00:00:00 Outpatient RECERTIFIC FRED MCARTHURHB [id number] 87.50
--- OUTSIDE RECORDS SUMMARY | 2025-06-10 19:00 | XMS_ITS | Clinical Summary ---
Author Organization Unknown Care Team Providers Care Shipping Associate Name Role Phone RONI ALVARADO, MANDO Unavailable Unavailable RIZWANA AQUINO, FRED Unavailable Unavailable Payers Payer Name Policy Type Policy Number Effective Date Expira tion Date [facility] [place] [id number] MEDICAID [facility] [id number] MEDICARE - [facility] [id number] Problems Condition Name Condition Details Condition Category [...] 12-14 00:00: 00 04-02 23:59 :00 No [id number] 1 tablet DAILY 1 tablet DAILY (route: oral) Med Classific ation: Hematolog ical Agents atorvastati n 80 mg tablet 12-14 00:00: 00 04-02 23:59 :00 No [id number] 1 tablet BEDTIME 1 tablet BEDTIME (route: oral) Med Classific ation: Cardiovas cular Therapy Agents cetirizine 10 mg tablet 12-14 00:00: 00 04-02 23:59 :00 No [id number] 1 tablet DAILY 1 tablet DAILY (route: oral) Med Classific ation: Respirato ry Therapy Agents clonazepam 0.5 mg tablet 12-14 00:00: 00 04-02 23:59 :00 No [id number] PRN FOR ANXIETY/MINH TATiON 1 tablet 2 TIMES DAILY 1 tablet 2 TIMES DAILY (route: oral) Med Classific ation: Central Nervous System Agents docusate sodium 100 mg capsule 12-14 00:00: 00 04-02 23:59 :00 No [id number] 1 capsule BEDTIME 1 capsule BEDTIME (route: oral) Med Classific ation: Gastroint estinal Therapy Agents ezetimibe 10 mg tablet 12-14 00:00: 00 04-02 23:59 :00 No [id number] 1 tablet DAILY 1 tablet DAILY (route: oral) Med Classific ation: Cardiovas cular Therapy Agents fludrocorti sone 0.1 mg tablet 12-14 00:00: 00 04-02 23:59 :00 No [id number] 1 tablet DAILY 1 tablet DAILY (route: oral) Med Classific ation: Endocrine folic acid 800 mcg tablet 12-14 00:00: 00 04-02 23:59 :00 No [id number] 1 tablet DAILY 1 tablet DAILY (route: oral) Med Classific ation: Electroly te Balance-N utritiona l Products levothyroxi ne 25 mcg tablet 12-14 00:00: 00 04-02 23:59 :00 No [id number] 1 tablet DAILY 1 tablet DAILY (route: oral) Med Classific ation: Endocrine magnesium 400 mg (as magnesium oxide) tablet 12-14 00:00: 00 04-02 23:59 :00 No [id number] 1 tablet BEDTIME 1 tablet BEDTIME (route: oral) Med Classific ation: Electroly te Balance-N utritiona l Products melatonin 10 mg tablet 12-14 00:00: 00 04-02 23:59 :00 No [id number] 1 tablet BEDTIME 1 tablet BEDTIME (route: oral) Med Classific ation: Central Nervous System Agents montelukast 10 mg tablet 12-14 00:00: 00 04-02 23:59 :00 No [id number] 1 tablet BEDTIME 1 tablet BEDTIME (route: oral) Med Classific ation: Respirato ry Therapy Agents sertraline 25 mg tablet 12-14 00:00: 00 01-19 23:59 :00 No [id number] 2 tablet DAILY 2 tablet DAILY (route: oral) Med Classific ation: Central Nervous System Agents sumatriptan 100 mg tablet 12-14 00:00: 00 04-02 23:59 :00 No [id number] 1 tablet DAILY 1 tablet DAILY (route: oral) Med Classific ation: Central Nervous System Agents topiramate 100 mg tablet 12-14 00:00: 00 04-02 23:59 :00 No [id number] 1 tablet 2 TIMES DAILY 1 tablet 2 TIMES DAILY (route: oral) Med Classific ation: Central Nervous System Agents sertraline 25 mg tablet 8 00:00: 00 04-02 23:59 :00 No [id number] 3 tablet EVERY AM 3 tablet EVERY AM (route: oral) Med Classific ation: Central Nervous System Agents memantine 7 mg capsule sprinkle,ex tended release 24hr 02-12 00:00: 00 02-16 23:59 :00 No [id number] 1 capsule DAILY 1 capsule DAILY (route: oral) Med Classific ation: Cognitive Disorder Therapy fluticasone propionate 50 mcg/actuati on nasal spray,suspe nsion 02-16 00:00: 00 04-02 23:59 :00 No [id number] 1 spray DAILY 1 spray DAILY (route: nasal) Med Classific ation: Respirato ry Therapy Agents memantine 14 mg capsule sprinkle,ex tended release 24hr 02-16 00:00: 00 04-02 23:59 :00 No [id number] 1 capsule DAILY 1 capsule DAILY (route: oral) Med Classific ation: Cognitive Disorder Therapy cefpodoxime 200 mg tablet 03-09 00:00: 00 04-02 23:59 :00 No [id number] 1 tablet 2 TIMES DAILY 1 tablet 2 TIMES DAILY (route: oral) Med Classific ation: Anti-Infe ctive Agents aspirin 81 mg tablet 2024-06 00:00: 00 Yes [id number] 1 tablet EVERY AM 1 tablet EVERY AM (route: oral) Med Classific ation: Hematolog ical Agents atorvastati n 80 mg tablet 2024-06 00:00: 00 Yes [id number] 1 tablet BEDTIME 1 tablet BEDTIME (route: oral) Med Classific ation: Cardiovas cular Therapy Agents cetirizine 10 mg tablet 2024-06 00:00: 00 Yes [id number] 1 tablet EVERY AM 1 tablet EVERY AM (route: oral) Med Classific ation: Respirato ry Therapy Agents clonazepam 0.5 mg tablet 2024-06 00:00: 00 Yes [id number] 1 tablet EVERY AM 1 tablet EVERY AM (route: oral) Med Classific ation: Central Nervous System Agents clonazepam 0.5 mg tablet 2024-06 00:00: 00 Yes [id number] 1 tablet BEDTIME 1 tablet BEDTIME (route: oral) Med Classific ation: Central Nervous System Agents docusate sodium 100 mg capsule 2024-06 00:00: 00 Yes [id number] 1 capsule BEDTIME 1 capsule BEDTIME (route: oral) Med Classific ation: Gastroint estinal Therapy Agents ezetimibe 10 mg tablet 2024-06 00:00: 00 Yes [id number] 1 tablet BEDTIME 1 tablet BEDTIME (route: oral) Med Classific ation: Cardiovas cular Therapy Agents fludrocorti sone 0.1 mg tablet 2024-06 00:00: 00 Yes [id number] 1 tablet EVERY AM 1 tablet EVERY AM (route: oral) Med Classific ation: Endocrine fluticasone propionate 50 mcg/actuati on nasal spray,suspe nsion 2024-06 00:00: 00 Yes [id number] 1 spray EVERY AM 1 spray EVERY AM (route: nasal) Med Classific ation: Respirato ry Therapy Agents folic acid 800 mcg tablet 2024-06 00:00: 00 Yes [id number] 1 tablet EVERY AM 1 tablet EVERY AM (route: oral) Med Classific ation: Electroly te Balance-N utritiona l Products levothyroxi ne 25 mcg tablet 2024-06 00:00: 00 Yes [id number] 1 tablet EVERY AM 1 tablet EVERY AM (route: oral) Med Classific ation: Endocrine magnesium 400 mg (as magnesium oxide) tablet 2024-06 00:00: 00 Yes [id number] 1 tablet BEDTIME 1 tablet BEDTIME (route: oral) Med Classific ation: Electroly te Balance-N utritiona l Products melatonin 10 mg tablet 2024-06 00:00: 00 Yes [id number] 1 tablet BEDTIME 1 tablet BEDTIME (route: oral) Med Classific ation: Central Nervous System Agents memantine 14 mg capsule sprinkle,ex tended release 24hr 2024-06 00:00: 00 Yes [id number] 1 capsule EVERY AM 1 capsule EVERY AM (route: oral) Med Classific ation: Cognitive Disorder Therapy montelukast 10 mg tablet 2024-06 00:00: 00 Yes [id number] 1 tablet BEDTIME 1 tablet BEDTIME (route: oral) Med Classific ation: Respirato ry Therapy Agents sertraline 25 mg tablet 2024-06 0 00:00: 00 Yes [id number] 4 tablet EVERY AM 4 tablet EVERY AM (route: oral) Med Classific ation: Central Nervous System Agents sumatriptan 100 mg tablet 2024-06 0 00:00: 00 Yes [id number] Per instruc tions NEEDED Per instructio ns NEEDED (route: oral) Med Classific ation: Central Nervous System Agents topiramate 100 mg tablet 2024-06 0 00:00: 00 Yes [id number] 1 tablet EVERY AM 1 tablet EVERY AM (route: oral) Med Classific ation: Central Nervous System Agents topiramate 100 mg tablet 2024-06 0 00:00: 00 Yes [id number] 1 tablet BEDTIME 1 tablet BEDTIME (route: [...] AWARENESS FOR SAFETY AND WILL NOTIFY CLINICAL CORRECTIONAL THERAPY TEACHER AND PHYSICIAN/PROVIDER WITH ANY CHANGE IN CONDITION. [code = SKILLED NURSE WILL MAINTAIN SITUATIONAL AWARENESS FOR SAFETY AND WILL NOTIFY CLINICAL CORRECTIONAL THERAPY TEACHER AND PHYSICIAN/PROVIDER WITH ANY CHANGE IN CONDITION.] Goal 2025-04-08 Patient Goal - T O STAY OUT OF THE HOSPITAL. Goal 2025-02-11 Patient Goal - T O STAY OUT OF THE HOSPITAL. Goal Patient Goal - T O STAY OUT OF THE HOSPITAL. Goal Provider Goal - A PLAN OF CARE WILL BE ESTABLISHED THAT MEETS PATIENT'S [facility] NEEDS AND INCLUDES PATIENT GOAL FOR HOME [...] End Date/Time Encounter Type Admission Type Attending [facility] Care Facility Care Department Encounter ID Discharge Date Discharge Status Discharge Condition Discharge Reason Percent Goals Met 2025-04-13 00:00:00 2025-06-11 00:00:00 Outpatient RECERTIFIC FRED MCARTHURHB [id number] 87.50
--- OUTSIDE RECORDS SUMMARY | 2025-06-10 19:00 | XMS_ITS | Clinical Summary ---
Author Organization Unknown Care Team Providers Care Bulb Sorter Name Role Phone RONI ALVARADO, MANDO Unavailable Unavailable RIZWANA AQUINO, FRED Unavailable Unavailable Payers Payer Name Policy Type Policy Number Effective Date Expira tion Date [facility] [place] [id number] MEDICAID [facility] [id number] MEDICARE - [facility] [id number] Problems Condition Name Condition Details Condition Category [...] 12-14 00:00: 00 04-02 23:59 :00 No [id number] 1 tablet DAILY 1 tablet DAILY (route: oral) Med Classific ation: Hematolog ical Agents atorvastati n 80 mg tablet 12-14 00:00: 00 04-02 23:59 :00 No [id number] 1 tablet BEDTIME 1 tablet BEDTIME (route: oral) Med Classific ation: Cardiovas cular Therapy Agents cetirizine 10 mg tablet 12-14 00:00: 00 04-02 23:59 :00 No [id number] 1 tablet DAILY 1 tablet DAILY (route: oral) Med Classific ation: Respirato ry Therapy Agents clonazepam 0.5 mg tablet 12-14 00:00: 00 04-02 23:59 :00 No [id number] PRN FOR ANXIETY/MINH TATiON 1 tablet 2 TIMES DAILY 1 tablet 2 TIMES DAILY (route: oral) Med Classific ation: Central Nervous System Agents docusate sodium 100 mg capsule 12-14 00:00: 00 04-02 23:59 :00 No [id number] 1 capsule BEDTIME 1 capsule BEDTIME (route: oral) Med Classific ation: Gastroint estinal Therapy Agents ezetimibe 10 mg tablet 12-14 00:00: 00 04-02 23:59 :00 No [id number] 1 tablet DAILY 1 tablet DAILY (route: oral) Med Classific ation: Cardiovas cular Therapy Agents fludrocorti sone 0.1 mg tablet 12-14 00:00: 00 04-02 23:59 :00 No [id number] 1 tablet DAILY 1 tablet DAILY (route: oral) Med Classific ation: Endocrine folic acid 800 mcg tablet 12-14 00:00: 00 04-02 23:59 :00 No [id number] 1 tablet DAILY 1 tablet DAILY (route: oral) Med Classific ation: Electroly te Balance-N utritiona l Products levothyroxi ne 25 mcg tablet 12-14 00:00: 00 04-02 23:59 :00 No [id number] 1 tablet DAILY 1 tablet DAILY (route: oral) Med Classific ation: Endocrine magnesium 400 mg (as magnesium oxide) tablet 12-14 00:00: 00 04-02 23:59 :00 No [id number] 1 tablet BEDTIME 1 tablet BEDTIME (route: oral) Med Classific ation: Electroly te Balance-N utritiona l Products melatonin 10 mg tablet 12-14 00:00: 00 04-02 23:59 :00 No [id number] 1 tablet BEDTIME 1 tablet BEDTIME (route: oral) Med Classific ation: Central Nervous System Agents montelukast 10 mg tablet 12-14 00:00: 00 04-02 23:59 :00 No [id number] 1 tablet BEDTIME 1 tablet BEDTIME (route: oral) Med Classific ation: Respirato ry Therapy Agents sertraline 25 mg tablet 12-14 00:00: 00 01-19 23:59 :00 No [id number] 2 tablet DAILY 2 tablet DAILY (route: oral) Med Classific ation: Central Nervous System Agents sumatriptan 100 mg tablet 12-14 00:00: 00 04-02 23:59 :00 No [id number] 1 tablet DAILY 1 tablet DAILY (route: oral) Med Classific ation: Central Nervous System Agents topiramate 100 mg tablet 12-14 00:00: 00 04-02 23:59 :00 No [id number] 1 tablet 2 TIMES DAILY 1 tablet 2 TIMES DAILY (route: oral) Med Classific ation: Central Nervous System Agents sertraline 25 mg tablet 8 00:00: 00 04-02 23:59 :00 No [id number] 3 tablet EVERY AM 3 tablet EVERY AM (route: oral) Med Classific ation: Central Nervous System Agents memantine 7 mg capsule sprinkle,ex tended release 24hr 02-12 00:00: 00 02-16 23:59 :00 No [id number] 1 capsule DAILY 1 capsule DAILY (route: oral) Med Classific ation: Cognitive Disorder Therapy fluticasone propionate 50 mcg/actuati on nasal spray,suspe nsion 02-16 00:00: 00 04-02 23:59 :00 No [id number] 1 spray DAILY 1 spray DAILY (route: nasal) Med Classific ation: Respirato ry Therapy Agents memantine 14 mg capsule sprinkle,ex tended release 24hr 02-16 00:00: 00 04-02 23:59 :00 No [id number] 1 capsule DAILY 1 capsule DAILY (route: oral) Med Classific ation: Cognitive Disorder Therapy cefpodoxime 200 mg tablet 03-09 00:00: 00 04-02 23:59 :00 No [id number] 1 tablet 2 TIMES DAILY 1 tablet 2 TIMES DAILY (route: oral) Med Classific ation: Anti-Infe ctive Agents aspirin 81 mg tablet 2024-06 00:00: 00 Yes [id number] 1 tablet EVERY AM 1 tablet EVERY AM (route: oral) Med Classific ation: Hematolog ical Agents atorvastati n 80 mg tablet 2024-06 00:00: 00 Yes [id number] 1 tablet BEDTIME 1 tablet BEDTIME (route: oral) Med Classific ation: Cardiovas cular Therapy Agents cetirizine 10 mg tablet 2024-06 00:00: 00 Yes [id number] 1 tablet EVERY AM 1 tablet EVERY AM (route: oral) Med Classific ation: Respirato ry Therapy Agents clonazepam 0.5 mg tablet 2024-06 00:00: 00 Yes [id number] 1 tablet EVERY AM 1 tablet EVERY AM (route: oral) Med Classific ation: Central Nervous System Agents clonazepam 0.5 mg tablet 2024-06 00:00: 00 Yes [id number] 1 tablet BEDTIME 1 tablet BEDTIME (route: oral) Med Classific ation: Central Nervous System Agents docusate sodium 100 mg capsule 2024-06 00:00: 00 Yes [id number] 1 capsule BEDTIME 1 capsule BEDTIME (route: oral) Med Classific ation: Gastroint estinal Therapy Agents ezetimibe 10 mg tablet 2024-06 00:00: 00 Yes [id number] 1 tablet BEDTIME 1 tablet BEDTIME (route: oral) Med Classific ation: Cardiovas cular Therapy Agents fludrocorti sone 0.1 mg tablet 2024-06 00:00: 00 Yes [id number] 1 tablet EVERY AM 1 tablet EVERY AM (route: oral) Med Classific ation: Endocrine fluticasone propionate 50 mcg/actuati on nasal spray,suspe nsion 2024-06 00:00: 00 Yes [id number] 1 spray EVERY AM 1 spray EVERY AM (route: nasal) Med Classific ation: Respirato ry Therapy Agents folic acid 800 mcg tablet 2024-06 00:00: 00 Yes [id number] 1 tablet EVERY AM 1 tablet EVERY AM (route: oral) Med Classific ation: Electroly te Balance-N utritiona l Products levothyroxi ne 25 mcg tablet 2024-06 00:00: 00 Yes [id number] 1 tablet EVERY AM 1 tablet EVERY AM (route: oral) Med Classific ation: Endocrine magnesium 400 mg (as magnesium oxide) tablet 2024-06 00:00: 00 Yes [id number] 1 tablet BEDTIME 1 tablet BEDTIME (route: oral) Med Classific ation: Electroly te Balance-N utritiona l Products melatonin 10 mg tablet 2024-06 00:00: 00 Yes [id number] 1 tablet BEDTIME 1 tablet BEDTIME (route: oral) Med Classific ation: Central Nervous System Agents memantine 14 mg capsule sprinkle,ex tended release 24hr 2024-06 00:00: 00 Yes [id number] 1 capsule EVERY AM 1 capsule EVERY AM (route: oral) Med Classific ation: Cognitive Disorder Therapy montelukast 10 mg tablet 2024-06 00:00: 00 Yes [id number] 1 tablet BEDTIME 1 tablet BEDTIME (route: oral) Med Classific ation: Respirato ry Therapy Agents sertraline 25 mg tablet 2024-06 0 00:00: 00 Yes [id number] 4 tablet EVERY AM 4 tablet EVERY AM (route: oral) Med Classific ation: Central Nervous System Agents sumatriptan 100 mg tablet 2024-06 0 00:00: 00 Yes [id number] Per instruc tions NEEDED Per instructio ns NEEDED (route: oral) Med Classific ation: Central Nervous System Agents topiramate 100 mg tablet 2024-06 0 00:00: 00 Yes [id number] 1 tablet EVERY AM 1 tablet EVERY AM (route: oral) Med Classific ation: Central Nervous System Agents topiramate 100 mg tablet 2024-06 0 00:00: 00 Yes [id number] 1 tablet BEDTIME 1 tablet BEDTIME (route: [...] AWARENESS FOR SAFETY AND WILL NOTIFY CLINICAL SHOE REPAIRER APPRENTICE AND PHYSICIAN/PROVIDER WITH ANY CHANGE IN CONDITION. [code = SKILLED NURSE WILL MAINTAIN SITUATIONAL AWARENESS FOR SAFETY AND WILL NOTIFY CLINICAL SHOE REPAIRER APPRENTICE AND PHYSICIAN/PROVIDER WITH ANY CHANGE IN CONDITION.] Goal 2025-04-08 Patient Goal - T O STAY OUT OF THE HOSPITAL. Goal 2025-02-11 Patient Goal - T O STAY OUT OF THE HOSPITAL. Goal Patient Goal - T O STAY OUT OF THE HOSPITAL. Goal Provider Goal - A PLAN OF CARE WILL BE ESTABLISHED THAT MEETS PATIENT'S ALF NEEDS AND INCLUDES PATIENT GOAL FOR HOME [...] End Date/Time Encounter Type Admission Type Attending [facility] Care Facility Care Department Encounter ID Discharge Date Discharge Status Discharge Condition Discharge Reason Percent Goals Met 2025-04-13 00:00:00 2025-06-11 00:00:00 Outpatient RECERTIFIC FRED MCARTHURHB [id number] 87.50
--- OUTSIDE RECORDS SUMMARY | 2025-06-10 19:00 | XMS_ITS | Clinical Summary ---
Author Organization Unknown Care Team Providers Care Notch Grinder Name Role Phone RONI ALVARADO, MANDO Unavailable Unavailable RIZWANA AQUINO, FRED Unavailable Unavailable Payers Payer Name Policy Type Policy Number Effective Date Expira tion Date [facility] [place] [id number] MEDICAID [facility] [id number] MEDICARE - [facility] [id number] Problems Condition Name Condition Details Condition Category [...] 12-14 00:00: 00 04-02 23:59 :00 No [id number] 1 tablet DAILY 1 tablet DAILY (route: oral) Med Classific ation: Hematolog ical Agents atorvastati n 80 mg tablet 12-14 00:00: 00 04-02 23:59 :00 No [id number] 1 tablet BEDTIME 1 tablet BEDTIME (route: oral) Med Classific ation: Cardiovas cular Therapy Agents cetirizine 10 mg tablet 12-14 00:00: 00 04-02 23:59 :00 No [id number] 1 tablet DAILY 1 tablet DAILY (route: oral) Med Classific ation: Respirato ry Therapy Agents clonazepam 0.5 mg tablet 12-14 00:00: 00 04-02 23:59 :00 No [id number] PRN FOR ANXIETY/MINH TATiON 1 tablet 2 TIMES DAILY 1 tablet 2 TIMES DAILY (route: oral) Med Classific ation: Central Nervous System Agents docusate sodium 100 mg capsule 12-14 00:00: 00 04-02 23:59 :00 No [id number] 1 capsule BEDTIME 1 capsule BEDTIME (route: oral) Med Classific ation: Gastroint estinal Therapy Agents ezetimibe 10 mg tablet 12-14 00:00: 00 04-02 23:59 :00 No [id number] 1 tablet DAILY 1 tablet DAILY (route: oral) Med Classific ation: Cardiovas cular Therapy Agents fludrocorti sone 0.1 mg tablet 12-14 00:00: 00 04-02 23:59 :00 No [id number] 1 tablet DAILY 1 tablet DAILY (route: oral) Med Classific ation: Endocrine folic acid 800 mcg tablet 12-14 00:00: 00 04-02 23:59 :00 No [id number] 1 tablet DAILY 1 tablet DAILY (route: oral) Med Classific ation: Electroly te Balance-N utritiona l Products levothyroxi ne 25 mcg tablet 12-14 00:00: 00 04-02 23:59 :00 No [id number] 1 tablet DAILY 1 tablet DAILY (route: oral) Med Classific ation: Endocrine magnesium 400 mg (as magnesium oxide) tablet 12-14 00:00: 00 04-02 23:59 :00 No [id number] 1 tablet BEDTIME 1 tablet BEDTIME (route: oral) Med Classific ation: Electroly te Balance-N utritiona l Products melatonin 10 mg tablet 12-14 00:00: 00 04-02 23:59 :00 No [id number] 1 tablet BEDTIME 1 tablet BEDTIME (route: oral) Med Classific ation: Central Nervous System Agents montelukast 10 mg tablet 12-14 00:00: 00 04-02 23:59 :00 No [id number] 1 tablet BEDTIME 1 tablet BEDTIME (route: oral) Med Classific ation: Respirato ry Therapy Agents sertraline 25 mg tablet 12-14 00:00: 00 01-19 23:59 :00 No [id number] 2 tablet DAILY 2 tablet DAILY (route: oral) Med Classific ation: Central Nervous System Agents sumatriptan 100 mg tablet 12-14 00:00: 00 04-02 23:59 :00 No [id number] 1 tablet DAILY 1 tablet DAILY (route: oral) Med Classific ation: Central Nervous System Agents topiramate 100 mg tablet 12-14 00:00: 00 04-02 23:59 :00 No [id number] 1 tablet 2 TIMES DAILY 1 tablet 2 TIMES DAILY (route: oral) Med Classific ation: Central Nervous System Agents sertraline 25 mg tablet 8 00:00: 00 04-02 23:59 :00 No [id number] 3 tablet EVERY AM 3 tablet EVERY AM (route: oral) Med Classific ation: Central Nervous System Agents memantine 7 mg capsule sprinkle,ex tended release 24hr 02-12 00:00: 00 02-16 23:59 :00 No [id number] 1 capsule DAILY 1 capsule DAILY (route: oral) Med Classific ation: Cognitive Disorder Therapy fluticasone propionate 50 mcg/actuati on nasal spray,suspe nsion 02-16 00:00: 00 04-02 23:59 :00 No [id number] 1 spray DAILY 1 spray DAILY (route: nasal) Med Classific ation: Respirato ry Therapy Agents memantine 14 mg capsule sprinkle,ex tended release 24hr 02-16 00:00: 00 04-02 23:59 :00 No [id number] 1 capsule DAILY 1 capsule DAILY (route: oral) Med Classific ation: Cognitive Disorder Therapy cefpodoxime 200 mg tablet 03-09 00:00: 00 04-02 23:59 :00 No [id number] 1 tablet 2 TIMES DAILY 1 tablet 2 TIMES DAILY (route: oral) Med Classific ation: Anti-Infe ctive Agents aspirin 81 mg tablet 2024-06 00:00: 00 Yes [id number] 1 tablet EVERY AM 1 tablet EVERY AM (route: oral) Med Classific ation: Hematolog ical Agents atorvastati n 80 mg tablet 2024-06 00:00: 00 Yes [id number] 1 tablet BEDTIME 1 tablet BEDTIME (route: oral) Med Classific ation: Cardiovas cular Therapy Agents cetirizine 10 mg tablet 2024-06 00:00: 00 Yes [id number] 1 tablet EVERY AM 1 tablet EVERY AM (route: oral) Med Classific ation: Respirato ry Therapy Agents clonazepam 0.5 mg tablet 2024-06 00:00: 00 Yes [id number] 1 tablet EVERY AM 1 tablet EVERY AM (route: oral) Med Classific ation: Central Nervous System Agents clonazepam 0.5 mg tablet 2024-06 00:00: 00 Yes [id number] 1 tablet BEDTIME 1 tablet BEDTIME (route: oral) Med Classific ation: Central Nervous System Agents docusate sodium 100 mg capsule 2024-06 00:00: 00 Yes [id number] 1 capsule BEDTIME 1 capsule BEDTIME (route: oral) Med Classific ation: Gastroint estinal Therapy Agents ezetimibe 10 mg tablet 2024-06 00:00: 00 Yes [id number] 1 tablet BEDTIME 1 tablet BEDTIME (route: oral) Med Classific ation: Cardiovas cular Therapy Agents fludrocorti sone 0.1 mg tablet 2024-06 00:00: 00 Yes [id number] 1 tablet EVERY AM 1 tablet EVERY AM (route: oral) Med Classific ation: Endocrine fluticasone propionate 50 mcg/actuati on nasal spray,suspe nsion 2024-06 00:00: 00 Yes [id number] 1 spray EVERY AM 1 spray EVERY AM (route: nasal) Med Classific ation: Respirato ry Therapy Agents folic acid 800 mcg tablet 2024-06 00:00: 00 Yes [id number] 1 tablet EVERY AM 1 tablet EVERY AM (route: oral) Med Classific ation: Electroly te Balance-N utritiona l Products levothyroxi ne 25 mcg tablet 2024-06 00:00: 00 Yes [id number] 1 tablet EVERY AM 1 tablet EVERY AM (route: oral) Med Classific ation: Endocrine magnesium 400 mg (as magnesium oxide) tablet 2024-06 00:00: 00 Yes [id number] 1 tablet BEDTIME 1 tablet BEDTIME (route: oral) Med Classific ation: Electroly te Balance-N utritiona l Products melatonin 10 mg tablet 2024-06 00:00: 00 Yes [id number] 1 tablet BEDTIME 1 tablet BEDTIME (route: oral) Med Classific ation: Central Nervous System Agents memantine 14 mg capsule sprinkle,ex tended release 24hr 2024-06 00:00: 00 Yes [id number] 1 capsule EVERY AM 1 capsule EVERY AM (route: oral) Med Classific ation: Cognitive Disorder Therapy montelukast 10 mg tablet 2024-06 00:00: 00 Yes [id number] 1 tablet BEDTIME 1 tablet BEDTIME (route: oral) Med Classific ation: Respirato ry Therapy Agents sertraline 25 mg tablet 2024-06 0 00:00: 00 Yes [id number] 4 tablet EVERY AM 4 tablet EVERY AM (route: oral) Med Classific ation: Central Nervous System Agents sumatriptan 100 mg tablet 2024-06 0 00:00: 00 Yes [id number] Per instruc tions NEEDED Per instructio ns NEEDED (route: oral) Med Classific ation: Central Nervous System Agents topiramate 100 mg tablet 2024-06 0 00:00: 00 Yes [id number] 1 tablet EVERY AM 1 tablet EVERY AM (route: oral) Med Classific ation: Central Nervous System Agents topiramate 100 mg tablet 2024-06 0 00:00: 00 Yes [id number] 1 tablet BEDTIME 1 tablet BEDTIME (route: [...] AWARENESS FOR SAFETY AND WILL NOTIFY CLINICAL STARCHMAKER AND PHYSICIAN/PROVIDER WITH ANY CHANGE IN CONDITION. [code = SKILLED NURSE WILL MAINTAIN SITUATIONAL AWARENESS FOR SAFETY AND WILL NOTIFY CLINICAL STARCHMAKER AND PHYSICIAN/PROVIDER WITH ANY CHANGE IN CONDITION.] [...] End Date/Time Encounter Type Admission Type Attending [facility] Care Facility Care Department Encounter ID Discharge Date Discharge Status Discharge Condition Discharge Reason Percent Goals Met 2025-04-13 00:00:00 2025-06-11 00:00:00 Outpatient RECERTIFIC FRED MCARTHURHB [id number] 87.50
--- OUTSIDE RECORDS SUMMARY | 2025-06-10 19:00 | XMS_ITS | Clinical Summary ---
Author Organization Unknown Care Team Providers Care Plumbing Manager Name Role Phone RONI ALVARADO, MANDO Unavailable Unavailable RIZWANA AQUINO, FRED Unavailable Unavailable Payers Payer Name Policy Type Policy Number Effective Date Expira tion Date [facility] [place] [id number] [facility]ID [facility] [id number] MEDICARE - [facility] [id number] Problems Condition Name Condition Details Condition Category [...] 12-14 00:00: 00 04-02 23:59 :00 No [id number] 1 tablet DAILY 1 tablet DAILY (route: oral) Med Classific ation: Hematolog ical Agents atorvastati n 80 mg tablet 12-14 00:00: 00 04-02 23:59 :00 No [id number] 1 tablet BEDTIME 1 tablet BEDTIME (route: oral) Med Classific ation: Cardiovas cular Therapy Agents cetirizine 10 mg tablet 12-14 00:00: 00 04-02 23:59 :00 No [id number] 1 tablet DAILY 1 tablet DAILY (route: oral) Med Classific ation: Respirato ry Therapy Agents clonazepam 0.5 mg tablet 12-14 00:00: 00 04-02 23:59 :00 No [id number] PRN FOR ANXIETY/MINH TATiON 1 tablet 2 TIMES DAILY 1 tablet 2 TIMES DAILY (route: oral) Med Classific ation: Central Nervous System Agents docusate sodium 100 mg capsule 12-14 00:00: 00 04-02 23:59 :00 No [id number] 1 capsule BEDTIME 1 capsule BEDTIME (route: oral) Med Classific ation: Gastroint estinal Therapy Agents ezetimibe 10 mg tablet 12-14 00:00: 00 04-02 23:59 :00 No [id number] 1 tablet DAILY 1 tablet DAILY (route: oral) Med Classific ation: Cardiovas cular Therapy Agents fludrocorti sone 0.1 mg tablet 12-14 00:00: 00 04-02 23:59 :00 No [id number] 1 tablet DAILY 1 tablet DAILY (route: oral) Med Classific ation: Endocrine folic acid 800 mcg tablet 12-14 00:00: 00 04-02 23:59 :00 No [id number] 1 tablet DAILY 1 tablet DAILY (route: oral) Med Classific ation: Electroly te Balance-N utritiona l Products levothyroxi ne 25 mcg tablet 12-14 00:00: 00 04-02 23:59 :00 No [id number] 1 tablet DAILY 1 tablet DAILY (route: oral) Med Classific ation: Endocrine magnesium 400 mg (as magnesium oxide) tablet 12-14 00:00: 00 04-02 23:59 :00 No [id number] 1 tablet BEDTIME 1 tablet BEDTIME (route: oral) Med Classific ation: Electroly te Balance-N utritiona l Products melatonin 10 mg tablet 12-14 00:00: 00 04-02 23:59 :00 No [id number] 1 tablet BEDTIME 1 tablet BEDTIME (route: oral) Med Classific ation: Central Nervous System Agents montelukast 10 mg tablet 12-14 00:00: 00 04-02 23:59 :00 No [id number] 1 tablet BEDTIME 1 tablet BEDTIME (route: oral) Med Classific ation: Respirato ry Therapy Agents sertraline 25 mg tablet 12-14 00:00: 00 01-19 23:59 :00 No [id number] 2 tablet DAILY 2 tablet DAILY (route: oral) Med Classific ation: Central Nervous System Agents sumatriptan 100 mg tablet 12-14 00:00: 00 04-02 23:59 :00 No [id number] 1 tablet DAILY 1 tablet DAILY (route: oral) Med Classific ation: Central Nervous System Agents topiramate 100 mg tablet 12-14 00:00: 00 04-02 23:59 :00 No [id number] 1 tablet 2 TIMES DAILY 1 tablet 2 TIMES DAILY (route: oral) Med Classific ation: Central Nervous System Agents sertraline 25 mg tablet 8 00:00: 00 04-02 23:59 :00 No [id number] 3 tablet EVERY AM 3 tablet EVERY AM (route: oral) Med Classific ation: Central Nervous System Agents memantine 7 mg capsule sprinkle,ex tended release 24hr 02-12 00:00: 00 02-16 23:59 :00 No [id number] 1 capsule DAILY 1 capsule DAILY (route: oral) Med Classific ation: Cognitive Disorder Therapy fluticasone propionate 50 mcg/actuati on nasal spray,suspe nsion 02-16 00:00: 00 04-02 23:59 :00 No [id number] 1 spray DAILY 1 spray DAILY (route: nasal) Med Classific ation: Respirato ry Therapy Agents memantine 14 mg capsule sprinkle,ex tended release 24hr 02-16 00:00: 00 04-02 23:59 :00 No [id number] 1 capsule DAILY 1 capsule DAILY (route: oral) Med Classific ation: Cognitive Disorder Therapy cefpodoxime 200 mg tablet 03-09 00:00: 00 04-02 23:59 :00 No [id number] 1 tablet 2 TIMES DAILY 1 tablet 2 TIMES DAILY (route: oral) Med Classific ation: Anti-Infe ctive Agents aspirin 81 mg tablet 2024-06 00:00: 00 Yes [id number] 1 tablet EVERY AM 1 tablet EVERY AM (route: oral) Med Classific ation: Hematolog ical Agents atorvastati n 80 mg tablet 2024-06 00:00: 00 Yes [id number] 1 tablet BEDTIME 1 tablet BEDTIME (route: oral) Med Classific ation: Cardiovas cular Therapy Agents cetirizine 10 mg tablet 2024-06 00:00: 00 Yes [id number] 1 tablet EVERY AM 1 tablet EVERY AM (route: oral) Med Classific ation: Respirato ry Therapy Agents clonazepam 0.5 mg tablet 2024-06 00:00: 00 Yes [id number] 1 tablet EVERY AM 1 tablet EVERY AM (route: oral) Med Classific ation: Central Nervous System Agents clonazepam 0.5 mg tablet 2024-06 00:00: 00 Yes [id number] 1 tablet BEDTIME 1 tablet BEDTIME (route: oral) Med Classific ation: Central Nervous System Agents docusate sodium 100 mg capsule 2024-06 00:00: 00 Yes [id number] 1 capsule BEDTIME 1 capsule BEDTIME (route: oral) Med Classific ation: Gastroint estinal Therapy Agents ezetimibe 10 mg tablet 2024-06 00:00: 00 Yes [id number] 1 tablet BEDTIME 1 tablet BEDTIME (route: oral) Med Classific ation: Cardiovas cular Therapy Agents fludrocorti sone 0.1 mg tablet 2024-06 00:00: 00 Yes [id number] 1 tablet EVERY AM 1 tablet EVERY AM (route: oral) Med Classific ation: Endocrine fluticasone propionate 50 mcg/actuati on nasal spray,suspe nsion 2024-06 00:00: 00 Yes [id number] 1 spray EVERY AM 1 spray EVERY AM (route: nasal) Med Classific ation: Respirato ry Therapy Agents folic acid 800 mcg tablet 2024-06 00:00: 00 Yes [id number] 1 tablet EVERY AM 1 tablet EVERY AM (route: oral) Med Classific ation: Electroly te Balance-N utritiona l Products levothyroxi ne 25 mcg tablet 2024-06 00:00: 00 Yes [id number] 1 tablet EVERY AM 1 tablet EVERY AM (route: oral) Med Classific ation: Endocrine magnesium 400 mg (as magnesium oxide) tablet 2024-06 00:00: 00 Yes [id number] 1 tablet BEDTIME 1 tablet BEDTIME (route: oral) Med Classific ation: Electroly te Balance-N utritiona l Products melatonin 10 mg tablet 2024-06 00:00: 00 Yes [id number] 1 tablet BEDTIME 1 tablet BEDTIME (route: oral) Med Classific ation: Central Nervous System Agents memantine 14 mg capsule sprinkle,ex tended release 24hr 2024-06 00:00: 00 Yes [id number] 1 capsule EVERY AM 1 capsule EVERY AM (route: oral) Med Classific ation: Cognitive Disorder Therapy montelukast 10 mg tablet 2024-06 00:00: 00 Yes [id number] 1 tablet BEDTIME 1 tablet BEDTIME (route: oral) Med Classific ation: Respirato ry Therapy Agents sertraline 25 mg tablet 2024-06 0 00:00: 00 Yes [id number] 4 tablet EVERY AM 4 tablet EVERY AM (route: oral) Med Classific ation: Central Nervous System Agents sumatriptan 100 mg tablet 2024-06 0 00:00: 00 Yes [id number] Per instruc tions NEEDED Per instructio ns NEEDED (route: oral) Med Classific ation: Central Nervous System Agents topiramate 100 mg tablet 2024-06 0 00:00: 00 Yes [id number] 1 tablet EVERY AM 1 tablet EVERY AM (route: oral) Med Classific ation: Central Nervous System Agents topiramate 100 mg tablet 2024-06 0 00:00: 00 Yes [id number] 1 tablet BEDTIME 1 tablet BEDTIME (route: [...] AWARENESS FOR SAFETY AND WILL NOTIFY CLINICAL PRODUCE LABORER AND PHYSICIAN/PROVIDER WITH ANY CHANGE IN CONDITION. [code = SKILLED NURSE WILL MAINTAIN SITUATIONAL AWARENESS FOR SAFETY AND WILL NOTIFY CLINICAL PRODUCE LABORER AND PHYSICIAN/PROVIDER WITH ANY CHANGE IN CONDITION.] Goal 2025-04-08 Patient Goal - T O STAY OUT OF THE HOSPITAL. Goal 2025-02-11 Patient Goal - T O STAY OUT OF THE HOSPITAL. Goal Patient Goal - T O STAY OUT OF THE HOSPITAL. Goal Provider Goal - A PLAN OF CARE WILL BE ESTABLISHED THAT MEETS PATIENT'S HALFWAY NEEDS AND INCLUDES PATIENT GOAL FOR HOME [...] End Date/Time Encounter Type Admission Type Attending [facility] Care Facility Care Department Encounter ID Discharge Date Discharge Status Discharge Condition Discharge Reason Percent Goals Met 2025-04-13 00:00:00 2025-06-11 00:00:00 Outpatient RECERTIFIC FRED MCARTHURHB [id number] 87.50
--- OUTSIDE RECORDS SUMMARY | 2025-06-10 19:00 | XMS_ITS | Clinical Summary ---
Author Organization Unknown Care Team Providers Care Scenic Arts Supervisor Name Role Phone RONI ALVARADO, MANDO Unavailable Unavailable RIZWANA AQUINO, FRED Unavailable Unavailable Payers Payer Name Policy Type Policy Number Effective Date Expira tion Date [facility] [place] [id number] MEDICA[place] [facility] [id number] MEDICARE - [facility] [id number] Problems Condition Name Condition Details Condition Category [...] 12-14 00:00: 00 04-02 23:59 :00 No [id number] 1 tablet DAILY 1 tablet DAILY (route: oral) Med Classific ation: Hematolog ical Agents atorvastati n 80 mg tablet 12-14 00:00: 00 04-02 23:59 :00 No [id number] 1 tablet BEDTIME 1 tablet BEDTIME (route: oral) Med Classific ation: Cardiovas cular Therapy Agents cetirizine 10 mg tablet 12-14 00:00: 00 04-02 23:59 :00 No [id number] 1 tablet DAILY 1 tablet DAILY (route: oral) Med Classific ation: Respirato ry Therapy Agents clonazepam 0.5 mg tablet 12-14 00:00: 00 04-02 23:59 :00 No [id number] PRN FOR ANXIETY/MINH TATiON 1 tablet 2 TIMES DAILY 1 tablet 2 TIMES DAILY (route: oral) Med Classific ation: Central Nervous System Agents docusate sodium 100 mg capsule 12-14 00:00: 00 04-02 23:59 :00 No [id number] 1 capsule BEDTIME 1 capsule BEDTIME (route: oral) Med Classific ation: Gastroint estinal Therapy Agents ezetimibe 10 mg tablet 12-14 00:00: 00 04-02 23:59 :00 No [id number] 1 tablet DAILY 1 tablet DAILY (route: oral) Med Classific ation: Cardiovas cular Therapy Agents fludrocorti sone 0.1 mg tablet 12-14 00:00: 00 04-02 23:59 :00 No [id number] 1 tablet DAILY 1 tablet DAILY (route: oral) Med Classific ation: Endocrine folic acid 800 mcg tablet 12-14 00:00: 00 04-02 23:59 :00 No [id number] 1 tablet DAILY 1 tablet DAILY (route: oral) Med Classific ation: Electroly te Balance-N utritiona l Products levothyroxi ne 25 mcg tablet 12-14 00:00: 00 04-02 23:59 :00 No [id number] 1 tablet DAILY 1 tablet DAILY (route: oral) Med Classific ation: Endocrine magnesium 400 mg (as magnesium oxide) tablet 12-14 00:00: 00 04-02 23:59 :00 No [id number] 1 tablet BEDTIME 1 tablet BEDTIME (route: oral) Med Classific ation: Electroly te Balance-N utritiona l Products melatonin 10 mg tablet 12-14 00:00: 00 04-02 23:59 :00 No [id number] 1 tablet BEDTIME 1 tablet BEDTIME (route: oral) Med Classific ation: Central Nervous System Agents montelukast 10 mg tablet 12-14 00:00: 00 04-02 23:59 :00 No [id number] 1 tablet BEDTIME 1 tablet BEDTIME (route: oral) Med Classific ation: Respirato ry Therapy Agents sertraline 25 mg tablet 12-14 00:00: 00 01-19 23:59 :00 No [id number] 2 tablet DAILY 2 tablet DAILY (route: oral) Med Classific ation: Central Nervous System Agents sumatriptan 100 mg tablet 12-14 00:00: 00 04-02 23:59 :00 No [id number] 1 tablet DAILY 1 tablet DAILY (route: oral) Med Classific ation: Central Nervous System Agents topiramate 100 mg tablet 12-14 00:00: 00 04-02 23:59 :00 No [id number] 1 tablet 2 TIMES DAILY 1 tablet 2 TIMES DAILY (route: oral) Med Classific ation: Central Nervous System Agents sertraline 25 mg tablet 8 00:00: 00 04-02 23:59 :00 No [id number] 3 tablet EVERY AM 3 tablet EVERY AM (route: oral) Med Classific ation: Central Nervous System Agents memantine 7 mg capsule sprinkle,ex tended release 24hr 02-12 00:00: 00 02-16 23:59 :00 No [id number] 1 capsule DAILY 1 capsule DAILY (route: oral) Med Classific ation: Cognitive Disorder Therapy fluticasone propionate 50 mcg/actuati on nasal spray,suspe nsion 02-16 00:00: 00 04-02 23:59 :00 No [id number] 1 spray DAILY 1 spray DAILY (route: nasal) Med Classific ation: Respirato ry Therapy Agents memantine 14 mg capsule sprinkle,ex tended release 24hr 02-16 00:00: 00 04-02 23:59 :00 No [id number] 1 capsule DAILY 1 capsule DAILY (route: oral) Med Classific ation: Cognitive Disorder Therapy cefpodoxime 200 mg tablet 03-09 00:00: 00 04-02 23:59 :00 No [id number] 1 tablet 2 TIMES DAILY 1 tablet 2 TIMES DAILY (route: oral) Med Classific ation: Anti-Infe ctive Agents aspirin 81 mg tablet 2024-06 00:00: 00 Yes [id number] 1 tablet EVERY AM 1 tablet EVERY AM (route: oral) Med Classific ation: Hematolog ical Agents atorvastati n 80 mg tablet 2024-06 00:00: 00 Yes [id number] 1 tablet BEDTIME 1 tablet BEDTIME (route: oral) Med Classific ation: Cardiovas cular Therapy Agents cetirizine 10 mg tablet 2024-06 00:00: 00 Yes [id number] 1 tablet EVERY AM 1 tablet EVERY AM (route: oral) Med Classific ation: Respirato ry Therapy Agents clonazepam 0.5 mg tablet 2024-06 00:00: 00 Yes [id number] 1 tablet EVERY AM 1 tablet EVERY AM (route: oral) Med Classific ation: Central Nervous System Agents clonazepam 0.5 mg tablet 2024-06 00:00: 00 Yes [id number] 1 tablet BEDTIME 1 tablet BEDTIME (route: oral) Med Classific ation: Central Nervous System Agents docusate sodium 100 mg capsule 2024-06 00:00: 00 Yes [id number] 1 capsule BEDTIME 1 capsule BEDTIME (route: oral) Med Classific ation: Gastroint estinal Therapy Agents ezetimibe 10 mg tablet 2024-06 00:00: 00 Yes [id number] 1 tablet BEDTIME 1 tablet BEDTIME (route: oral) Med Classific ation: Cardiovas cular Therapy Agents fludrocorti sone 0.1 mg tablet 2024-06 00:00: 00 Yes [id number] 1 tablet EVERY AM 1 tablet EVERY AM (route: oral) Med Classific ation: Endocrine fluticasone propionate 50 mcg/actuati on nasal spray,suspe nsion 2024-06 00:00: 00 Yes [id number] 1 spray EVERY AM 1 spray EVERY AM (route: nasal) Med Classific ation: Respirato ry Therapy Agents folic acid 800 mcg tablet 2024-06 00:00: 00 Yes [id number] 1 tablet EVERY AM 1 tablet EVERY AM (route: oral) Med Classific ation: Electroly te Balance-N utritiona l Products levothyroxi ne 25 mcg tablet 2024-06 00:00: 00 Yes [id number] 1 tablet EVERY AM 1 tablet EVERY AM (route: oral) Med Classific ation: Endocrine magnesium 400 mg (as magnesium oxide) tablet 2024-06 00:00: 00 Yes [id number] 1 tablet BEDTIME 1 tablet BEDTIME (route: oral) Med Classific ation: Electroly te Balance-N utritiona l Products melatonin 10 mg tablet 2024-06 00:00: 00 Yes [id number] 1 tablet BEDTIME 1 tablet BEDTIME (route: oral) Med Classific ation: Central Nervous System Agents memantine 14 mg capsule sprinkle,ex tended release 24hr 2024-06 00:00: 00 Yes [id number] 1 capsule EVERY AM 1 capsule EVERY AM (route: oral) Med Classific ation: Cognitive Disorder Therapy montelukast 10 mg tablet 2024-06 00:00: 00 Yes [id number] 1 tablet BEDTIME 1 tablet BEDTIME (route: oral) Med Classific ation: Respirato ry Therapy Agents sertraline 25 mg tablet 2024-06 0 00:00: 00 Yes [id number] 4 tablet EVERY AM 4 tablet EVERY AM (route: oral) Med Classific ation: Central Nervous System Agents sumatriptan 100 mg tablet 2024-06 0 00:00: 00 Yes [id number] Per instruc tions NEEDED Per instructio ns NEEDED (route: oral) Med Classific ation: Central Nervous System Agents topiramate 100 mg tablet 2024-06 0 00:00: 00 Yes [id number] 1 tablet EVERY AM 1 tablet EVERY AM (route: oral) Med Classific ation: Central Nervous System Agents topiramate 100 mg tablet 2024-06 0 00:00: 00 Yes [id number] 1 tablet BEDTIME 1 tablet BEDTIME (route: [...] AWARENESS FOR SAFETY AND WILL NOTIFY CLINICAL WINDOW CUTTER AND PHYSICIAN/PROVIDER WITH ANY CHANGE IN CONDITION. [code = SKILLED NURSE WILL MAINTAIN SITUATIONAL AWARENESS FOR SAFETY AND WILL NOTIFY CLINICAL WINDOW CUTTER AND PHYSICIAN/PROVIDER WITH ANY CHANGE IN CONDITION.] Goal 2025-04-08 Patient Goal - T O STAY OUT OF THE HOSPITAL. Goal 2025-02-11 Patient Goal - T O STAY OUT OF THE HOSPITAL. Goal Patient Goal - T O STAY OUT OF THE HOSPITAL. Goal Provider Goal - A PLAN OF CARE WILL BE ESTABLISHED THAT MEETS PATIENT'S JAIL NEEDS AND INCLUDES PATIENT GOAL FOR HOME [...] End Date/Time Encounter Type Admission Type Attending [facility] Care Facility Care Department Encounter ID Discharge Date Discharge Status Discharge Condition Discharge Reason Percent Goals Met 2025-04-13 00:00:00 2025-06-11 00:00:00 Outpatient RECERTIFIC FRED MCARTHURHB [id number] 87.50
--- OUTSIDE RECORDS SUMMARY | 2025-06-10 19:00 | XMS_ITS | Clinical Summary ---
Author Organization Unknown Care Team Providers Care Audit Intern Name Role Phone RONI ALVARADO, MANDO Unavailable Unavailable RIZWANA AQUINO, FRED Unavailable Unavailable Payers Payer Name Policy Type Policy Number Effective Date Expira tion Date [facility] [place] [id number] MEDICAID [facility] [id number] MEDICARE - [facility] [id number] Problems Condition Name Condition Details Condition Category [...] 12-14 00:00: 00 04-02 23:59 :00 No [id number] 1 tablet DAILY 1 tablet DAILY (route: oral) Med Classific ation: Hematolog ical Agents atorvastati n 80 mg tablet 12-14 00:00: 00 04-02 23:59 :00 No [id number] 1 tablet BEDTIME 1 tablet BEDTIME (route: oral) Med Classific ation: Cardiovas cular Therapy Agents cetirizine 10 mg tablet 12-14 00:00: 00 04-02 23:59 :00 No [id number] 1 tablet DAILY 1 tablet DAILY (route: oral) Med Classific ation: Respirato ry Therapy Agents clonazepam 0.5 mg tablet 12-14 00:00: 00 04-02 23:59 :00 No [id number] PRN FOR ANXIETY/MINH TATiON 1 tablet 2 TIMES DAILY 1 tablet 2 TIMES DAILY (route: oral) Med Classific ation: Central Nervous System Agents docusate sodium 100 mg capsule 12-14 00:00: 00 04-02 23:59 :00 No [id number] 1 capsule BEDTIME 1 capsule BEDTIME (route: oral) Med Classific ation: Gastroint estinal Therapy Agents ezetimibe 10 mg tablet 12-14 00:00: 00 04-02 23:59 :00 No [id number] 1 tablet DAILY 1 tablet DAILY (route: oral) Med Classific ation: Cardiovas cular Therapy Agents fludrocorti sone 0.1 mg tablet 12-14 00:00: 00 04-02 23:59 :00 No [id number] 1 tablet DAILY 1 tablet DAILY (route: oral) Med Classific ation: Endocrine folic acid 800 mcg tablet 12-14 00:00: 00 04-02 23:59 :00 No [id number] 1 tablet DAILY 1 tablet DAILY (route: oral) Med Classific ation: Electroly te Balance-N utritiona l Products levothyroxi ne 25 mcg tablet 12-14 00:00: 00 04-02 23:59 :00 No [id number] 1 tablet DAILY 1 tablet DAILY (route: oral) Med Classific ation: Endocrine magnesium 400 mg (as magnesium oxide) tablet 12-14 00:00: 00 04-02 23:59 :00 No [id number] 1 tablet BEDTIME 1 tablet BEDTIME (route: oral) Med Classific ation: Electroly te Balance-N utritiona l Products melatonin 10 mg tablet 12-14 00:00: 00 04-02 23:59 :00 No [id number] 1 tablet BEDTIME 1 tablet BEDTIME (route: oral) Med Classific ation: Central Nervous System Agents montelukast 10 mg tablet 12-14 00:00: 00 04-02 23:59 :00 No [id number] 1 tablet BEDTIME 1 tablet BEDTIME (route: oral) Med Classific ation: Respirato ry Therapy Agents sertraline 25 mg tablet 12-14 00:00: 00 01-19 23:59 :00 No [id number] 2 tablet DAILY 2 tablet DAILY (route: oral) Med Classific ation: Central Nervous System Agents sumatriptan 100 mg tablet 12-14 00:00: 00 04-02 23:59 :00 No [id number] 1 tablet DAILY 1 tablet DAILY (route: oral) Med Classific ation: Central Nervous System Agents topiramate 100 mg tablet 12-14 00:00: 00 04-02 23:59 :00 No [id number] 1 tablet 2 TIMES DAILY 1 tablet 2 TIMES DAILY (route: oral) Med Classific ation: Central Nervous System Agents sertraline 25 mg tablet 8 00:00: 00 04-02 23:59 :00 No [id number] 3 tablet EVERY AM 3 tablet EVERY AM (route: oral) Med Classific ation: Central Nervous System Agents memantine 7 mg capsule sprinkle,ex tended release 24hr 02-12 00:00: 00 02-16 23:59 :00 No [id number] 1 capsule DAILY 1 capsule DAILY (route: oral) Med Classific ation: Cognitive Disorder Therapy fluticasone propionate 50 mcg/actuati on nasal spray,suspe nsion 02-16 00:00: 00 04-02 23:59 :00 No [id number] 1 spray DAILY 1 spray DAILY (route: nasal) Med Classific ation: Respirato ry Therapy Agents memantine 14 mg capsule sprinkle,ex tended release 24hr 02-16 00:00: 00 04-02 23:59 :00 No [id number] 1 capsule DAILY 1 capsule DAILY (route: oral) Med Classific ation: Cognitive Disorder Therapy cefpodoxime 200 mg tablet 03-09 00:00: 00 04-02 23:59 :00 No [id number] 1 tablet 2 TIMES DAILY 1 tablet 2 TIMES DAILY (route: oral) Med Classific ation: Anti-Infe ctive Agents aspirin 81 mg tablet 2024-06 00:00: 00 Yes [id number] 1 tablet EVERY AM 1 tablet EVERY AM (route: oral) Med Classific ation: Hematolog ical Agents atorvastati n 80 mg tablet 2024-06 00:00: 00 Yes [id number] 1 tablet BEDTIME 1 tablet BEDTIME (route: oral) Med Classific ation: Cardiovas cular Therapy Agents cetirizine 10 mg tablet 2024-06 00:00: 00 Yes [id number] 1 tablet EVERY AM 1 tablet EVERY AM (route: oral) Med Classific ation: Respirato ry Therapy Agents clonazepam 0.5 mg tablet 2024-06 00:00: 00 Yes [id number] 1 tablet EVERY AM 1 tablet EVERY AM (route: oral) Med Classific ation: Central Nervous System Agents clonazepam 0.5 mg tablet 2024-06 00:00: 00 Yes [id number] 1 tablet BEDTIME 1 tablet BEDTIME (route: oral) Med Classific ation: Central Nervous System Agents docusate sodium 100 mg capsule 2024-06 00:00: 00 Yes [id number] 1 capsule BEDTIME 1 capsule BEDTIME (route: oral) Med Classific ation: Gastroint estinal Therapy Agents ezetimibe 10 mg tablet 2024-06 00:00: 00 Yes [id number] 1 tablet BEDTIME 1 tablet BEDTIME (route: oral) Med Classific ation: Cardiovas cular Therapy Agents fludrocorti sone 0.1 mg tablet 2024-06 00:00: 00 Yes [id number] 1 tablet EVERY AM 1 tablet EVERY AM (route: oral) Med Classific ation: Endocrine fluticasone propionate 50 mcg/actuati on nasal spray,suspe nsion 2024-06 00:00: 00 Yes [id number] 1 spray EVERY AM 1 spray EVERY AM (route: nasal) Med Classific ation: Respirato ry Therapy Agents folic acid 800 mcg tablet 2024-06 00:00: 00 Yes [id number] 1 tablet EVERY AM 1 tablet EVERY AM (route: oral) Med Classific ation: Electroly te Balance-N utritiona l Products levothyroxi ne 25 mcg tablet 2024-06 00:00: 00 Yes [id number] 1 tablet EVERY AM 1 tablet EVERY AM (route: oral) Med Classific ation: Endocrine magnesium 400 mg (as magnesium oxide) tablet 2024-06 00:00: 00 Yes [id number] 1 tablet BEDTIME 1 tablet BEDTIME (route: oral) Med Classific ation: Electroly te Balance-N utritiona l Products melatonin 10 mg tablet 2024-06 00:00: 00 Yes [id number] 1 tablet BEDTIME 1 tablet BEDTIME (route: oral) Med Classific ation: Central Nervous System Agents memantine 14 mg capsule sprinkle,ex tended release 24hr 2024-06 00:00: 00 Yes [id number] 1 capsule EVERY AM 1 capsule EVERY AM (route: oral) Med Classific ation: Cognitive Disorder Therapy montelukast 10 mg tablet 2024-06 00:00: 00 Yes [id number] 1 tablet BEDTIME 1 tablet BEDTIME (route: oral) Med Classific ation: Respirato ry Therapy Agents sertraline 25 mg tablet 2024-06 0 00:00: 00 Yes [id number] 4 tablet EVERY AM 4 tablet EVERY AM (route: oral) Med Classific ation: Central Nervous System Agents sumatriptan 100 mg tablet 2024-06 0 00:00: 00 Yes [id number] Per instruc tions NEEDED Per instructio ns NEEDED (route: oral) Med Classific ation: Central Nervous System Agents topiramate 100 mg tablet 2024-06 0 00:00: 00 Yes [id number] 1 tablet EVERY AM 1 tablet EVERY AM (route: oral) Med Classific ation: Central Nervous System Agents topiramate 100 mg tablet 2024-06 0 00:00: 00 Yes [id number] 1 tablet BEDTIME 1 tablet BEDTIME (route: [...] AWARENESS FOR SAFETY AND WILL NOTIFY CLINICAL SUPERINTENDENT CIRCUS AND PHYSICIAN/PROVIDER WITH ANY CHANGE IN CONDITION. [code = SKILLED NURSE WILL MAINTAIN SITUATIONAL AWARENESS FOR SAFETY AND WILL NOTIFY CLINICAL SUPERINTENDENT CIRCUS AND PHYSICIAN/PROVIDER WITH ANY CHANGE IN CONDITION.] [...] End Date/Time Encounter Type Admission Type Attending [facility] Care Facility Care Department Encounter ID Discharge Date Discharge Status Discharge Condition Discharge Reason Percent Goals Met 2025-04-13 00:00:00 2025-06-11 00:00:00 Outpatient RECERTIFIC FRED MCARTHURHB [id number] 87.50
--- OUTSIDE RECORDS SUMMARY | 2025-06-10 19:00 | XMS_ITS | Clinical Summary ---
Author Organization Unknown Care Team Providers Care New Car Get Ready Mechanic Name Role Phone RONI ALVARADO, MANDO Unavailable Unavailable RIZWANA AQUINO, FRED Unavailable Unavailable Payers Payer Name Policy Type Policy Number Effective Date Expira tion Date [facility] [place] [id number] MEDICAID [facility] [id number] MEDICARE - [facility] [id number] Problems Condition Name Condition Details Condition Category [...] 12-14 00:00: 00 04-02 23:59 :00 No [id number] 1 tablet DAILY 1 tablet DAILY (route: oral) Med Classific ation: Hematolog ical Agents atorvastati n 80 mg tablet 12-14 00:00: 00 04-02 23:59 :00 No [id number] 1 tablet BEDTIME 1 tablet BEDTIME (route: oral) Med Classific ation: Cardiovas cular Therapy Agents cetirizine 10 mg tablet 12-14 00:00: 00 04-02 23:59 :00 No [id number] 1 tablet DAILY 1 tablet DAILY (route: oral) Med Classific ation: Respirato ry Therapy Agents clonazepam 0.5 mg tablet 12-14 00:00: 00 04-02 23:59 :00 No [id number] PRN FOR ANXIETY/MINH TATiON 1 tablet 2 TIMES DAILY 1 tablet 2 TIMES DAILY (route: oral) Med Classific ation: Central Nervous System Agents docusate sodium 100 mg capsule 12-14 00:00: 00 04-02 23:59 :00 No [id number] 1 capsule BEDTIME 1 capsule BEDTIME (route: oral) Med Classific ation: Gastroint estinal Therapy Agents ezetimibe 10 mg tablet 12-14 00:00: 00 04-02 23:59 :00 No [id number] 1 tablet DAILY 1 tablet DAILY (route: oral) Med Classific ation: Cardiovas cular Therapy Agents fludrocorti sone 0.1 mg tablet 12-14 00:00: 00 04-02 23:59 :00 No [id number] 1 tablet DAILY 1 tablet DAILY (route: oral) Med Classific ation: Endocrine folic acid 800 mcg tablet 12-14 00:00: 00 04-02 23:59 :00 No [id number] 1 tablet DAILY 1 tablet DAILY (route: oral) Med Classific ation: Electroly te Balance-N utritiona l Products levothyroxi ne 25 mcg tablet 12-14 00:00: 00 04-02 23:59 :00 No [id number] 1 tablet DAILY 1 tablet DAILY (route: oral) Med Classific ation: Endocrine magnesium 400 mg (as magnesium oxide) tablet 12-14 00:00: 00 04-02 23:59 :00 No [id number] 1 tablet BEDTIME 1 tablet BEDTIME (route: oral) Med Classific ation: Electroly te Balance-N utritiona l Products melatonin 10 mg tablet 12-14 00:00: 00 04-02 23:59 :00 No [id number] 1 tablet BEDTIME 1 tablet BEDTIME (route: oral) Med Classific ation: Central Nervous System Agents montelukast 10 mg tablet 12-14 00:00: 00 04-02 23:59 :00 No [id number] 1 tablet BEDTIME 1 tablet BEDTIME (route: oral) Med Classific ation: Respirato ry Therapy Agents sertraline 25 mg tablet 12-14 00:00: 00 01-19 23:59 :00 No [id number] 2 tablet DAILY 2 tablet DAILY (route: oral) Med Classific ation: Central Nervous System Agents sumatriptan 100 mg tablet 12-14 00:00: 00 04-02 23:59 :00 No [id number] 1 tablet DAILY 1 tablet DAILY (route: oral) Med Classific ation: Central Nervous System Agents topiramate 100 mg tablet 12-14 00:00: 00 04-02 23:59 :00 No [id number] 1 tablet 2 TIMES DAILY 1 tablet 2 TIMES DAILY (route: oral) Med Classific ation: Central Nervous System Agents sertraline 25 mg tablet 8 00:00: 00 04-02 23:59 :00 No [id number] 3 tablet EVERY AM 3 tablet EVERY AM (route: oral) Med Classific ation: Central Nervous System Agents memantine 7 mg capsule sprinkle,ex tended release 24hr 02-12 00:00: 00 02-16 23:59 :00 No [id number] 1 capsule DAILY 1 capsule DAILY (route: oral) Med Classific ation: Cognitive Disorder Therapy fluticasone propionate 50 mcg/actuati on nasal spray,suspe nsion 02-16 00:00: 00 04-02 23:59 :00 No [id number] 1 spray DAILY 1 spray DAILY (route: nasal) Med Classific ation: Respirato ry Therapy Agents memantine 14 mg capsule sprinkle,ex tended release 24hr 02-16 00:00: 00 04-02 23:59 :00 No [id number] 1 capsule DAILY 1 capsule DAILY (route: oral) Med Classific ation: Cognitive Disorder Therapy cefpodoxime 200 mg tablet 03-09 00:00: 00 04-02 23:59 :00 No [id number] 1 tablet 2 TIMES DAILY 1 tablet 2 TIMES DAILY (route: oral) Med Classific ation: Anti-Infe ctive Agents aspirin 81 mg tablet 2024-06 00:00: 00 Yes [id number] 1 tablet EVERY AM 1 tablet EVERY AM (route: oral) Med Classific ation: Hematolog ical Agents atorvastati n 80 mg tablet 2024-06 00:00: 00 Yes [id number] 1 tablet BEDTIME 1 tablet BEDTIME (route: oral) Med Classific ation: Cardiovas cular Therapy Agents cetirizine 10 mg tablet 2024-06 00:00: 00 Yes [id number] 1 tablet EVERY AM 1 tablet EVERY AM (route: oral) Med Classific ation: Respirato ry Therapy Agents clonazepam 0.5 mg tablet 2024-06 00:00: 00 Yes [id number] 1 tablet EVERY AM 1 tablet EVERY AM (route: oral) Med Classific ation: Central Nervous System Agents clonazepam 0.5 mg tablet 2024-06 00:00: 00 Yes [id number] 1 tablet BEDTIME 1 tablet BEDTIME (route: oral) Med Classific ation: Central Nervous System Agents docusate sodium 100 mg capsule 2024-06 00:00: 00 Yes [id number] 1 capsule BEDTIME 1 capsule BEDTIME (route: oral) Med Classific ation: Gastroint estinal Therapy Agents ezetimibe 10 mg tablet 2024-06 00:00: 00 Yes [id number] 1 tablet BEDTIME 1 tablet BEDTIME (route: oral) Med Classific ation: Cardiovas cular Therapy Agents fludrocorti sone 0.1 mg tablet 2024-06 00:00: 00 Yes [id number] 1 tablet EVERY AM 1 tablet EVERY AM (route: oral) Med Classific ation: Endocrine fluticasone propionate 50 mcg/actuati on nasal spray,suspe nsion 2024-06 00:00: 00 Yes [id number] 1 spray EVERY AM 1 spray EVERY AM (route: nasal) Med Classific ation: Respirato ry Therapy Agents folic acid 800 mcg tablet 2024-06 00:00: 00 Yes [id number] 1 tablet EVERY AM 1 tablet EVERY AM (route: oral) Med Classific ation: Electroly te Balance-N utritiona l Products levothyroxi ne 25 mcg tablet 2024-06 00:00: 00 Yes [id number] 1 tablet EVERY AM 1 tablet EVERY AM (route: oral) Med Classific ation: Endocrine magnesium 400 mg (as magnesium oxide) tablet 2024-06 00:00: 00 Yes [id number] 1 tablet BEDTIME 1 tablet BEDTIME (route: oral) Med Classific ation: Electroly te Balance-N utritiona l Products melatonin 10 mg tablet 2024-06 00:00: 00 Yes [id number] 1 tablet BEDTIME 1 tablet BEDTIME (route: oral) Med Classific ation: Central Nervous System Agents memantine 14 mg capsule sprinkle,ex tended release 24hr 2024-06 00:00: 00 Yes [id number] 1 capsule EVERY AM 1 capsule EVERY AM (route: oral) Med Classific ation: Cognitive Disorder Therapy montelukast 10 mg tablet 2024-06 00:00: 00 Yes [id number] 1 tablet BEDTIME 1 tablet BEDTIME (route: oral) Med Classific ation: Respirato ry Therapy Agents sertraline 25 mg tablet 2024-06 0 00:00: 00 Yes [id number] 4 tablet EVERY AM 4 tablet EVERY AM (route: oral) Med Classific ation: Central Nervous System Agents sumatriptan 100 mg tablet 2024-06 0 00:00: 00 Yes [id number] Per instruc tions NEEDED Per instructio ns NEEDED (route: oral) Med Classific ation: Central Nervous System Agents topiramate 100 mg tablet 2024-06 0 00:00: 00 Yes [id number] 1 tablet EVERY AM 1 tablet EVERY AM (route: oral) Med Classific ation: Central Nervous System Agents topiramate 100 mg tablet 2024-06 0 00:00: 00 Yes [id number] 1 tablet BEDTIME 1 tablet BEDTIME (route: [...] AWARENESS FOR SAFETY AND WILL NOTIFY [employer] MEDIA PROGRAM DIRECTOR AND PHYSICIAN/PROVIDER WITH ANY CHANGE IN CONDITION. [code = SKILLED NURSE WILL MAINTAIN SITUATIONAL AWARENESS FOR SAFETY AND WILL NOTIFY [employer] MEDIA PROGRAM DIRECTOR AND PHYSICIAN/PROVIDER WITH ANY CHANGE IN CONDITION.] Goal 2025-04-08 Patient Goal - T O STAY OUT OF THE HOSPITAL. Goal 2025-02-11 Patient Goal - T O STAY OUT OF THE HOSPITAL. Goal Patient Goal - T O STAY OUT OF THE HOSPITAL. Goal Provider Goal - A PLAN OF CARE WILL BE ESTABLISHED THAT MEETS PATIENT'S PENITENTIARY NEEDS AND INCLUDES PATIENT GOAL FOR HOME [...] End Date/Time Encounter Type Admission Type Attending [facility] Care Department Encounter ID Discharge Date Discharge Status Discharge Condition Discharge Reason Percent Goals Met 2025-04-13 00:00:00 2025-06-11 00:00:00 Outpatient RECERTIFIC FRED MCARTHURHB [id number] 87.50
--- OUTSIDE RECORDS SUMMARY | 2025-06-10 19:00 | XMS_ITS | Clinical Summary ---
Author Organization Unknown Care Team Providers Care Custom Feed Mill Operator Helper Name Role Phone RONI ALVARADO, MANDO Unavailable Unavailable RIZWANA AQUINO, FRED Unavailable Unavailable Payers Payer Name Policy Type Policy Number Effective Date Expira tion Date [facility] [place] [id number] MEDICAID [facility] [id number] MEDICARE - [facility] [id number] Problems Condition Name Condition Details Condition Category [...] 12-14 00:00: 00 04-02 23:59 :00 No [id number] 1 tablet DAILY 1 tablet DAILY (route: oral) Med Classific ation: Hematolog ical Agents atorvastati n 80 mg tablet 12-14 00:00: 00 04-02 23:59 :00 No [id number] 1 tablet BEDTIME 1 tablet BEDTIME (route: oral) Med Classific ation: Cardiovas cular Therapy Agents cetirizine 10 mg tablet 12-14 00:00: 00 04-02 23:59 :00 No [id number] 1 tablet DAILY 1 tablet DAILY (route: oral) Med Classific ation: Respirato ry Therapy Agents clonazepam 0.5 mg tablet 12-14 00:00: 00 04-02 23:59 :00 No [id number] PRN FOR ANXIETY/MINH TATiON 1 tablet 2 TIMES DAILY 1 tablet 2 TIMES DAILY (route: oral) Med Classific ation: Central Nervous System Agents docusate sodium 100 mg capsule 12-14 00:00: 00 04-02 23:59 :00 No [id number] 1 capsule BEDTIME 1 capsule BEDTIME (route: oral) Med Classific ation: Gastroint estinal Therapy Agents ezetimibe 10 mg tablet 12-14 00:00: 00 04-02 23:59 :00 No [id number] 1 tablet DAILY 1 tablet DAILY (route: oral) Med Classific ation: Cardiovas cular Therapy Agents fludrocorti sone 0.1 mg tablet 12-14 00:00: 00 04-02 23:59 :00 No [id number] 1 tablet DAILY 1 tablet DAILY (route: oral) Med Classific ation: Endocrine folic acid 800 mcg tablet 12-14 00:00: 00 04-02 23:59 :00 No [id number] 1 tablet DAILY 1 tablet DAILY (route: oral) Med Classific ation: Electroly te Balance-N utritiona l Products levothyroxi ne 25 mcg tablet 12-14 00:00: 00 04-02 23:59 :00 No [id number] 1 tablet DAILY 1 tablet DAILY (route: oral) Med Classific ation: Endocrine magnesium 400 mg (as magnesium oxide) tablet 12-14 00:00: 00 04-02 23:59 :00 No [id number] 1 tablet BEDTIME 1 tablet BEDTIME (route: oral) Med Classific ation: Electroly te Balance-N utritiona l Products melatonin 10 mg tablet 12-14 00:00: 00 04-02 23:59 :00 No [id number] 1 tablet BEDTIME 1 tablet BEDTIME (route: oral) Med Classific ation: Central Nervous System Agents montelukast 10 mg tablet 12-14 00:00: 00 04-02 23:59 :00 No [id number] 1 tablet BEDTIME 1 tablet BEDTIME (route: oral) Med Classific ation: Respirato ry Therapy Agents sertraline 25 mg tablet 12-14 00:00: 00 01-19 23:59 :00 No [id number] 2 tablet DAILY 2 tablet DAILY (route: oral) Med Classific ation: Central Nervous System Agents sumatriptan 100 mg tablet 12-14 00:00: 00 04-02 23:59 :00 No [id number] 1 tablet DAILY 1 tablet DAILY (route: oral) Med Classific ation: Central Nervous System Agents topiramate 100 mg tablet 12-14 00:00: 00 04-02 23:59 :00 No [id number] 1 tablet 2 TIMES DAILY 1 tablet 2 TIMES DAILY (route: oral) Med Classific ation: Central Nervous System Agents sertraline 25 mg tablet 8 00:00: 00 04-02 23:59 :00 No [id number] 3 tablet EVERY AM 3 tablet EVERY AM (route: oral) Med Classific ation: Central Nervous System Agents memantine 7 mg capsule sprinkle,ex tended release 24hr 02-12 00:00: 00 02-16 23:59 :00 No [id number] 1 capsule DAILY 1 capsule DAILY (route: oral) Med Classific ation: Cognitive Disorder Therapy fluticasone propionate 50 mcg/actuati on nasal spray,suspe nsion 02-16 00:00: 00 04-02 23:59 :00 No [id number] 1 spray DAILY 1 spray DAILY (route: nasal) Med Classific ation: Respirato ry Therapy Agents memantine 14 mg capsule sprinkle,ex tended release 24hr 02-16 00:00: 00 04-02 23:59 :00 No [id number] 1 capsule DAILY 1 capsule DAILY (route: oral) Med Classific ation: Cognitive Disorder Therapy cefpodoxime 200 mg tablet 03-09 00:00: 00 04-02 23:59 :00 No [id number] 1 tablet 2 TIMES DAILY 1 tablet 2 TIMES DAILY (route: oral) Med Classific ation: Anti-Infe ctive Agents aspirin 81 mg tablet 2024-06 00:00: 00 Yes [id number] 1 tablet EVERY AM 1 tablet EVERY AM (route: oral) Med Classific ation: Hematolog ical Agents atorvastati n 80 mg tablet 2024-06 00:00: 00 Yes [id number] 1 tablet BEDTIME 1 tablet BEDTIME (route: oral) Med Classific ation: Cardiovas cular Therapy Agents cetirizine 10 mg tablet 2024-06 00:00: 00 Yes [id number] 1 tablet EVERY AM 1 tablet EVERY AM (route: oral) Med Classific ation: Respirato ry Therapy Agents clonazepam 0.5 mg tablet 2024-06 00:00: 00 Yes [id number] 1 tablet EVERY AM 1 tablet EVERY AM (route: oral) Med Classific ation: Central Nervous System Agents clonazepam 0.5 mg tablet 2024-06 00:00: 00 Yes [id number] 1 tablet BEDTIME 1 tablet BEDTIME (route: oral) Med Classific ation: Central Nervous System Agents docusate sodium 100 mg capsule 2024-06 00:00: 00 Yes [id number] 1 capsule BEDTIME 1 capsule BEDTIME (route: oral) Med Classific ation: Gastroint estinal Therapy Agents ezetimibe 10 mg tablet 2024-06 00:00: 00 Yes [id number] 1 tablet BEDTIME 1 tablet BEDTIME (route: oral) Med Classific ation: Cardiovas cular Therapy Agents fludrocorti sone 0.1 mg tablet 2024-06 00:00: 00 Yes [id number] 1 tablet EVERY AM 1 tablet EVERY AM (route: oral) Med Classific ation: Endocrine fluticasone propionate 50 mcg/actuati on nasal spray,suspe nsion 2024-06 00:00: 00 Yes [id number] 1 spray EVERY AM 1 spray EVERY AM (route: nasal) Med Classific ation: Respirato ry Therapy Agents folic acid 800 mcg tablet 2024-06 00:00: 00 Yes [id number] 1 tablet EVERY AM 1 tablet EVERY AM (route: oral) Med Classific ation: Electroly te Balance-N utritiona l Products levothyroxi ne 25 mcg tablet 2024-06 00:00: 00 Yes [id number] 1 tablet EVERY AM 1 tablet EVERY AM (route: oral) Med Classific ation: Endocrine magnesium 400 mg (as magnesium oxide) tablet 2024-06 00:00: 00 Yes [id number] 1 tablet BEDTIME 1 tablet BEDTIME (route: oral) Med Classific ation: Electroly te Balance-N utritiona l Products melatonin 10 mg tablet 2024-06 00:00: 00 Yes [id number] 1 tablet BEDTIME 1 tablet BEDTIME (route: oral) Med Classific ation: Central Nervous System Agents memantine 14 mg capsule sprinkle,ex tended release 24hr 2024-06 00:00: 00 Yes [id number] 1 capsule EVERY AM 1 capsule EVERY AM (route: oral) Med Classific ation: Cognitive Disorder Therapy montelukast 10 mg tablet 2024-06 00:00: 00 Yes [id number] 1 tablet BEDTIME 1 tablet BEDTIME (route: oral) Med Classific ation: Respirato ry Therapy Agents sertraline 25 mg tablet 2024-06 0 00:00: 00 Yes [id number] 4 tablet EVERY AM 4 tablet EVERY AM (route: oral) Med Classific ation: Central Nervous System Agents sumatriptan 100 mg tablet 2024-06 0 00:00: 00 Yes [id number] Per instruc tions NEEDED Per instructio ns NEEDED (route: oral) Med Classific ation: Central Nervous System Agents topiramate 100 mg tablet 2024-06 0 00:00: 00 Yes [id number] 1 tablet EVERY AM 1 tablet EVERY AM (route: oral) Med Classific ation: Central Nervous System Agents topiramate 100 mg tablet 2024-06 0 00:00: 00 Yes [id number] 1 tablet BEDTIME 1 tablet BEDTIME (route: [...] AWARENESS FOR SAFETY AND WILL NOTIFY CLINICAL EVENT DESIGNER AND PHYSICIAN/PROVIDER WITH ANY CHANGE IN CONDITION. [code = SKILLED NURSE WILL MAINTAIN SITUATIONAL AWARENESS FOR SAFETY AND WILL NOTIFY CLINICAL EVENT DESIGNER AND PHYSICIAN/PROVIDER WITH ANY CHANGE IN CONDITION.] Goal 2025-04-08 Patient Goal - T O STAY OUT OF THE HOSPITAL. Goal 2025-02-11 Patient Goal - T O STAY OUT OF THE HOSPITAL. Goal Patient Goal - T O STAY OUT OF THE HOSPITAL. Goal Provider Goal - A PLAN OF CARE WILL BE ESTABLISHED THAT MEETS PATIENT'S CARE HOME NEEDS AND INCLUDES PATIENT GOAL FOR HOME [...] Date/Time Encounter Type Admission Type Attending [facility] Care Facility Care Department Encounter ID Discharge Date Discharge Status Discharge Condition Discharge Reason Percent Goals Met 2025-04-13 00:00:00 2025-06-11 00:00:00 Outpatient RECERTIFIC FRED MCARTHURHB [id number] 87.50
--- OUTSIDE RECORDS SUMMARY | 2025-06-10 19:00 | XMS_ITS | Clinical Summary ---
Author Organization Unknown Care Team Providers Care Electronic Publications Specialist Name Role Phone RONI ALVARADO, MANDO Unavailable Unavailable RIZWANA AQUINO, FRED Unavailable Unavailable Payers Payer Name Policy Type Policy Number Effective Date Expira tion Date [facility] [place] [id number] [facility]ID [facility] [id number] MEDICARE - [facility] [id number] Problems Condition Name Condition Details Condition Category [...] 12-14 00:00: 00 04-02 23:59 :00 No [id number] 1 tablet DAILY 1 tablet DAILY (route: oral) Med Classific ation: Hematolog ical Agents atorvastati n 80 mg tablet 12-14 00:00: 00 04-02 23:59 :00 No [id number] 1 tablet BEDTIME 1 tablet BEDTIME (route: oral) Med Classific ation: Cardiovas cular Therapy Agents cetirizine 10 mg tablet 12-14 00:00: 00 04-02 23:59 :00 No [id number] 1 tablet DAILY 1 tablet DAILY (route: oral) Med Classific ation: Respirato ry Therapy Agents clonazepam 0.5 mg tablet 12-14 00:00: 00 04-02 23:59 :00 No [id number] PRN FOR ANXIETY/MINH TATiON 1 tablet 2 TIMES DAILY 1 tablet 2 TIMES DAILY (route: oral) Med Classific ation: Central Nervous System Agents docusate sodium 100 mg capsule 12-14 00:00: 00 04-02 23:59 :00 No [id number] 1 capsule BEDTIME 1 capsule BEDTIME (route: oral) Med Classific ation: Gastroint estinal Therapy Agents ezetimibe 10 mg tablet 12-14 00:00: 00 04-02 23:59 :00 No [id number] 1 tablet DAILY 1 tablet DAILY (route: oral) Med Classific ation: Cardiovas cular Therapy Agents fludrocorti sone 0.1 mg tablet 12-14 00:00: 00 04-02 23:59 :00 No [id number] 1 tablet DAILY 1 tablet DAILY (route: oral) Med Classific ation: Endocrine folic acid 800 mcg tablet 12-14 00:00: 00 04-02 23:59 :00 No [id number] 1 tablet DAILY 1 tablet DAILY (route: oral) Med Classific ation: Electroly te Balance-N utritiona l Products levothyroxi ne 25 mcg tablet 12-14 00:00: 00 04-02 23:59 :00 No [id number] 1 tablet DAILY 1 tablet DAILY (route: oral) Med Classific ation: Endocrine magnesium 400 mg (as magnesium oxide) tablet 12-14 00:00: 00 04-02 23:59 :00 No [id number] 1 tablet BEDTIME 1 tablet BEDTIME (route: oral) Med Classific ation: Electroly te Balance-N utritiona l Products melatonin 10 mg tablet 12-14 00:00: 00 04-02 23:59 :00 No [id number] 1 tablet BEDTIME 1 tablet BEDTIME (route: oral) Med Classific ation: Central Nervous System Agents montelukast 10 mg tablet 12-14 00:00: 00 04-02 23:59 :00 No [id number] 1 tablet BEDTIME 1 tablet BEDTIME (route: oral) Med Classific ation: Respirato ry Therapy Agents sertraline 25 mg tablet 12-14 00:00: 00 01-19 23:59 :00 No [id number] 2 tablet DAILY 2 tablet DAILY (route: oral) Med Classific ation: Central Nervous System Agents sumatriptan 100 mg tablet 12-14 00:00: 00 04-02 23:59 :00 No [id number] 1 tablet DAILY 1 tablet DAILY (route: oral) Med Classific ation: Central Nervous System Agents topiramate 100 mg tablet 12-14 00:00: 00 04-02 23:59 :00 No [id number] 1 tablet 2 TIMES DAILY 1 tablet 2 TIMES DAILY (route: oral) Med Classific ation: Central Nervous System Agents sertraline 25 mg tablet 8 00:00: 00 04-02 23:59 :00 No [id number] 3 tablet EVERY AM 3 tablet EVERY AM (route: oral) Med Classific ation: Central Nervous System Agents memantine 7 mg capsule sprinkle,ex tended release 24hr 02-12 00:00: 00 02-16 23:59 :00 No [id number] 1 capsule DAILY 1 capsule DAILY (route: oral) Med Classific ation: Cognitive Disorder Therapy fluticasone propionate 50 mcg/actuati on nasal spray,suspe nsion 02-16 00:00: 00 04-02 23:59 :00 No [id number] 1 spray DAILY 1 spray DAILY (route: nasal) Med Classific ation: Respirato ry Therapy Agents memantine 14 mg capsule sprinkle,ex tended release 24hr 02-16 00:00: 00 04-02 23:59 :00 No [id number] 1 capsule DAILY 1 capsule DAILY (route: oral) Med Classific ation: Cognitive Disorder Therapy cefpodoxime 200 mg tablet 03-09 00:00: 00 04-02 23:59 :00 No [id number] 1 tablet 2 TIMES DAILY 1 tablet 2 TIMES DAILY (route: oral) Med Classific ation: Anti-Infe ctive Agents aspirin 81 mg tablet 2024-06 00:00: 00 Yes [id number] 1 tablet EVERY AM 1 tablet EVERY AM (route: oral) Med Classific ation: Hematolog ical Agents atorvastati n 80 mg tablet 2024-06 00:00: 00 Yes [id number] 1 tablet BEDTIME 1 tablet BEDTIME (route: oral) Med Classific ation: Cardiovas cular Therapy Agents cetirizine 10 mg tablet 2024-06 00:00: 00 Yes [id number] 1 tablet EVERY AM 1 tablet EVERY AM (route: oral) Med Classific ation: Respirato ry Therapy Agents clonazepam 0.5 mg tablet 2024-06 00:00: 00 Yes [id number] 1 tablet EVERY AM 1 tablet EVERY AM (route: oral) Med Classific ation: Central Nervous System Agents clonazepam 0.5 mg tablet 2024-06 00:00: 00 Yes [id number] 1 tablet BEDTIME 1 tablet BEDTIME (route: oral) Med Classific ation: Central Nervous System Agents docusate sodium 100 mg capsule 2024-06 00:00: 00 Yes [id number] 1 capsule BEDTIME 1 capsule BEDTIME (route: oral) Med Classific ation: Gastroint estinal Therapy Agents ezetimibe 10 mg tablet 2024-06 00:00: 00 Yes [id number] 1 tablet BEDTIME 1 tablet BEDTIME (route: oral) Med Classific ation: Cardiovas cular Therapy Agents fludrocorti sone 0.1 mg tablet 2024-06 00:00: 00 Yes [id number] 1 tablet EVERY AM 1 tablet EVERY AM (route: oral) Med Classific ation: Endocrine fluticasone propionate 50 mcg/actuati on nasal spray,suspe nsion 2024-06 00:00: 00 Yes [id number] 1 spray EVERY AM 1 spray EVERY AM (route: nasal) Med Classific ation: Respirato ry Therapy Agents folic acid 800 mcg tablet 2024-06 00:00: 00 Yes [id number] 1 tablet EVERY AM 1 tablet EVERY AM (route: oral) Med Classific ation: Electroly te Balance-N utritiona l Products levothyroxi ne 25 mcg tablet 2024-06 00:00: 00 Yes [id number] 1 tablet EVERY AM 1 tablet EVERY AM (route: oral) Med Classific ation: Endocrine magnesium 400 mg (as magnesium oxide) tablet 2024-06 00:00: 00 Yes [id number] 1 tablet BEDTIME 1 tablet BEDTIME (route: oral) Med Classific ation: Electroly te Balance-N utritiona l Products melatonin 10 mg tablet 2024-06 00:00: 00 Yes [id number] 1 tablet BEDTIME 1 tablet BEDTIME (route: oral) Med Classific ation: Central Nervous System Agents memantine 14 mg capsule sprinkle,ex tended release 24hr 2024-06 00:00: 00 Yes [id number] 1 capsule EVERY AM 1 capsule EVERY AM (route: oral) Med Classific ation: Cognitive Disorder Therapy montelukast 10 mg tablet 2024-06 00:00: 00 Yes [id number] 1 tablet BEDTIME 1 tablet BEDTIME (route: oral) Med Classific ation: Respirato ry Therapy Agents sertraline 25 mg tablet 2024-06 0 00:00: 00 Yes [id number] 4 tablet EVERY AM 4 tablet EVERY AM (route: oral) Med Classific ation: Central Nervous System Agents sumatriptan 100 mg tablet 2024-06 0 00:00: 00 Yes [id number] Per instruc tions NEEDED Per instructio ns NEEDED (route: oral) Med Classific ation: Central Nervous System Agents topiramate 100 mg tablet 2024-06 0 00:00: 00 Yes [id number] 1 tablet EVERY AM 1 tablet EVERY AM (route: oral) Med Classific ation: Central Nervous System Agents topiramate 100 mg tablet 2024-06 0 00:00: 00 Yes [id number] 1 tablet BEDTIME 1 tablet BEDTIME (route: [...] AWARENESS FOR SAFETY AND WILL NOTIFY CLINICAL INSPECTOR SEMICONDUCTOR WAFER AND PHYSICIAN/PROVIDER WITH ANY CHANGE IN CONDITION. [code = SKILLED NURSE WILL MAINTAIN SITUATIONAL AWARENESS FOR SAFETY AND WILL NOTIFY CLINICAL INSPECTOR SEMICONDUCTOR WAFER AND PHYSICIAN/PROVIDER WITH ANY CHANGE IN CONDITION.] Goal 2025-04-08 Patient Goal - T O STAY OUT OF THE HOSPITAL. Goal 2025-02-11 Patient Goal - T O STAY OUT OF THE HOSPITAL. Goal Patient Goal - T O STAY OUT OF THE HOSPITAL. Goal Provider Goal - A PLAN OF CARE WILL BE ESTABLISHED THAT MEETS PATIENT'S SNF NEEDS AND INCLUDES PATIENT GOAL FOR HOME [...] End Date/Time Encounter Type Admission Type Attending [facility] Care Facility Care Department Encounter ID Discharge Date Discharge Status Discharge Condition Discharge Reason Percent Goals Met 2025-04-13 00:00:00 2025-06-11 00:00:00 Outpatient RECERTIFIC FRED MCARTHURHB [id number] 87.50
--- OUTSIDE RECORDS SUMMARY | 2025-06-10 19:00 | XMS_ITS | Clinical Summary ---
Author Organization Unknown Care Team Providers Care Laboratory Sample Carrier Name Role Phone RONI ALVARADO, MANDO Unavailable Unavailable RIZWANA AQUINO, FRED Unavailable Unavailable Payers Payer Name Policy Type Policy Number Effective Date Expira tion Date [facility] [place] [id number] MEDICAID [facility] [id number] MEDICARE - [facility] [id number] Problems Condition Name Condition Details Condition Category [...] 12-14 00:00: 00 04-02 23:59 :00 No [id number] 1 tablet DAILY 1 tablet DAILY (route: oral) Med Classific ation: Hematolog ical Agents atorvastati n 80 mg tablet 12-14 00:00: 00 04-02 23:59 :00 No [id number] 1 tablet BEDTIME 1 tablet BEDTIME (route: oral) Med Classific ation: Cardiovas cular Therapy Agents cetirizine 10 mg tablet 12-14 00:00: 00 04-02 23:59 :00 No [id number] 1 tablet DAILY 1 tablet DAILY (route: oral) Med Classific ation: Respirato ry Therapy Agents clonazepam 0.5 mg tablet 12-14 00:00: 00 04-02 23:59 :00 No [id number] PRN FOR ANXIETY/MINH TATiON 1 tablet 2 TIMES DAILY 1 tablet 2 TIMES DAILY (route: oral) Med Classific ation: Central Nervous System Agents docusate sodium 100 mg capsule 12-14 00:00: 00 04-02 23:59 :00 No [id number] 1 capsule BEDTIME 1 capsule BEDTIME (route: oral) Med Classific ation: Gastroint estinal Therapy Agents ezetimibe 10 mg tablet 12-14 00:00: 00 04-02 23:59 :00 No [id number] 1 tablet DAILY 1 tablet DAILY (route: oral) Med Classific ation: Cardiovas cular Therapy Agents fludrocorti sone 0.1 mg tablet 12-14 00:00: 00 04-02 23:59 :00 No [id number] 1 tablet DAILY 1 tablet DAILY (route: oral) Med Classific ation: Endocrine folic acid 800 mcg tablet 12-14 00:00: 00 04-02 23:59 :00 No [id number] 1 tablet DAILY 1 tablet DAILY (route: oral) Med Classific ation: Electroly te Balance-N utritiona l Products levothyroxi ne 25 mcg tablet 12-14 00:00: 00 04-02 23:59 :00 No [id number] 1 tablet DAILY 1 tablet DAILY (route: oral) Med Classific ation: Endocrine magnesium 400 mg (as magnesium oxide) tablet 12-14 00:00: 00 04-02 23:59 :00 No [id number] 1 tablet BEDTIME 1 tablet BEDTIME (route: oral) Med Classific ation: Electroly te Balance-N utritiona l Products melatonin 10 mg tablet 12-14 00:00: 00 04-02 23:59 :00 No [id number] 1 tablet BEDTIME 1 tablet BEDTIME (route: oral) Med Classific ation: Central Nervous System Agents montelukast 10 mg tablet 12-14 00:00: 00 04-02 23:59 :00 No [id number] 1 tablet BEDTIME 1 tablet BEDTIME (route: oral) Med Classific ation: Respirato ry Therapy Agents sertraline 25 mg tablet 12-14 00:00: 00 01-19 23:59 :00 No [id number] 2 tablet DAILY 2 tablet DAILY (route: oral) Med Classific ation: Central Nervous System Agents sumatriptan 100 mg tablet 12-14 00:00: 00 04-02 23:59 :00 No [id number] 1 tablet DAILY 1 tablet DAILY (route: oral) Med Classific ation: Central Nervous System Agents topiramate 100 mg tablet 12-14 00:00: 00 04-02 23:59 :00 No [id number] 1 tablet 2 TIMES DAILY 1 tablet 2 TIMES DAILY (route: oral) Med Classific ation: Central Nervous System Agents sertraline 25 mg tablet 8 00:00: 00 04-02 23:59 :00 No [id number] 3 tablet EVERY AM 3 tablet EVERY AM (route: oral) Med Classific ation: Central Nervous System Agents memantine 7 mg capsule sprinkle,ex tended release 24hr 02-12 00:00: 00 02-16 23:59 :00 No [id number] 1 capsule DAILY 1 capsule DAILY (route: oral) Med Classific ation: Cognitive Disorder Therapy fluticasone propionate 50 mcg/actuati on nasal spray,suspe nsion 02-16 00:00: 00 04-02 23:59 :00 No [id number] 1 spray DAILY 1 spray DAILY (route: nasal) Med Classific ation: Respirato ry Therapy Agents memantine 14 mg capsule sprinkle,ex tended release 24hr 02-16 00:00: 00 04-02 23:59 :00 No [id number] 1 capsule DAILY 1 capsule DAILY (route: oral) Med Classific ation: Cognitive Disorder Therapy cefpodoxime 200 mg tablet 03-09 00:00: 00 04-02 23:59 :00 No [id number] 1 tablet 2 TIMES DAILY 1 tablet 2 TIMES DAILY (route: oral) Med Classific ation: Anti-Infe ctive Agents aspirin 81 mg tablet 2024-06 00:00: 00 Yes [id number] 1 tablet EVERY AM 1 tablet EVERY AM (route: oral) Med Classific ation: Hematolog ical Agents atorvastati n 80 mg tablet 2024-06 00:00: 00 Yes [id number] 1 tablet BEDTIME 1 tablet BEDTIME (route: oral) Med Classific ation: Cardiovas cular Therapy Agents cetirizine 10 mg tablet 2024-06 00:00: 00 Yes [id number] 1 tablet EVERY AM 1 tablet EVERY AM (route: oral) Med Classific ation: Respirato ry Therapy Agents clonazepam 0.5 mg tablet 2024-06 00:00: 00 Yes [id number] 1 tablet EVERY AM 1 tablet EVERY AM (route: oral) Med Classific ation: Central Nervous System Agents clonazepam 0.5 mg tablet 2024-06 00:00: 00 Yes [id number] 1 tablet BEDTIME 1 tablet BEDTIME (route: oral) Med Classific ation: Central Nervous System Agents docusate sodium 100 mg capsule 2024-06 00:00: 00 Yes [id number] 1 capsule BEDTIME 1 capsule BEDTIME (route: oral) Med Classific ation: Gastroint estinal Therapy Agents ezetimibe 10 mg tablet 2024-06 00:00: 00 Yes [id number] 1 tablet BEDTIME 1 tablet BEDTIME (route: oral) Med Classific ation: Cardiovas cular Therapy Agents fludrocorti sone 0.1 mg tablet 2024-06 00:00: 00 Yes [id number] 1 tablet EVERY AM 1 tablet EVERY AM (route: oral) Med Classific ation: Endocrine fluticasone propionate 50 mcg/actuati on nasal spray,suspe nsion 2024-06 00:00: 00 Yes [id number] 1 spray EVERY AM 1 spray EVERY AM (route: nasal) Med Classific ation: Respirato ry Therapy Agents folic acid 800 mcg tablet 2024-06 00:00: 00 Yes [id number] 1 tablet EVERY AM 1 tablet EVERY AM (route: oral) Med Classific ation: Electroly te Balance-N utritiona l Products levothyroxi ne 25 mcg tablet 2024-06 00:00: 00 Yes [id number] 1 tablet EVERY AM 1 tablet EVERY AM (route: oral) Med Classific ation: Endocrine magnesium 400 mg (as magnesium oxide) tablet 2024-06 00:00: 00 Yes [id number] 1 tablet BEDTIME 1 tablet BEDTIME (route: oral) Med Classific ation: Electroly te Balance-N utritiona l Products melatonin 10 mg tablet 2024-06 00:00: 00 Yes [id number] 1 tablet BEDTIME 1 tablet BEDTIME (route: oral) Med Classific ation: Central Nervous System Agents memantine 14 mg capsule sprinkle,ex tended release 24hr 2024-06 00:00: 00 Yes [id number] 1 capsule EVERY AM 1 capsule EVERY AM (route: oral) Med Classific ation: Cognitive Disorder Therapy montelukast 10 mg tablet 2024-06 00:00: 00 Yes [id number] 1 tablet BEDTIME 1 tablet BEDTIME (route: oral) Med Classific ation: Respirato ry Therapy Agents sertraline 25 mg tablet 2024-06 0 00:00: 00 Yes [id number] 4 tablet EVERY AM 4 tablet EVERY AM (route: oral) Med Classific ation: Central Nervous System Agents sumatriptan 100 mg tablet 2024-06 0 00:00: 00 Yes [id number] Per instruc tions NEEDED Per instructio ns NEEDED (route: oral) Med Classific ation: Central Nervous System Agents topiramate 100 mg tablet 2024-06 0 00:00: 00 Yes [id number] 1 tablet EVERY AM 1 tablet EVERY AM (route: oral) Med Classific ation: Central Nervous System Agents topiramate 100 mg tablet 2024-06 0 00:00: 00 Yes [id number] 1 tablet BEDTIME 1 tablet BEDTIME (route: [...] AWARENESS FOR SAFETY AND WILL NOTIFY CLINICAL ATTENDING PSYCHIATRIST AND PHYSICIAN/PROVIDER WITH ANY CHANGE IN CONDITION. [code = SKILLED NURSE WILL MAINTAIN SITUATIONAL AWARENESS FOR SAFETY AND WILL NOTIFY CLINICAL ATTENDING PSYCHIATRIST AND PHYSICIAN/PROVIDER WITH ANY CHANGE IN CONDITION.] [...] End Date/Time Encounter Type Admission Type Attending [facility] Care Facility Care Department Encounter ID Discharge Date Discharge Status Discharge Condition Discharge Reason Percent Goals Met 2025-04-13 00:00:00 2025-06-11 00:00:00 Outpatient RECERTIFIC FRED MCARTHURHB [id number] 87.50
--- OUTSIDE RECORDS SUMMARY | 2025-06-10 19:00 | XMS_ITS | Clinical Summary ---
Author Organization Unknown Care Team Providers Care Nuisance Wildlife Trapper Name Role Phone RONI ALVARADO, MANDO Unavailable Unavailable RIZWANA AQUINO, FRED Unavailable Unavailable Payers Payer Name Policy Type Policy Number Effective Date Expira tion Date [facility] [place] [id number] MEDICAID [facility] [id number] [facility]IC[facility] - [facility] [id number] Problems Condition Name Condition Details Condition Category [...] 12-14 00:00: 00 04-02 23:59 :00 No [id number] 1 tablet DAILY 1 tablet DAILY (route: oral) Med Classific ation: Hematolog ical Agents atorvastati n 80 mg tablet 12-14 00:00: 00 04-02 23:59 :00 No [id number] 1 tablet BEDTIME 1 tablet BEDTIME (route: oral) Med Classific ation: Cardiovas cular Therapy Agents cetirizine 10 mg tablet 12-14 00:00: 00 04-02 23:59 :00 No [id number] 1 tablet DAILY 1 tablet DAILY (route: oral) Med Classific ation: Respirato ry Therapy Agents clonazepam 0.5 mg tablet 12-14 00:00: 00 04-02 23:59 :00 No [id number] PRN FOR ANXIETY/MINH TATiON 1 tablet 2 TIMES DAILY 1 tablet 2 TIMES DAILY (route: oral) Med Classific ation: Central Nervous System Agents docusate sodium 100 mg capsule 12-14 00:00: 00 04-02 23:59 :00 No [id number] 1 capsule BEDTIME 1 capsule BEDTIME (route: oral) Med Classific ation: Gastroint estinal Therapy Agents ezetimibe 10 mg tablet 12-14 00:00: 00 04-02 23:59 :00 No [id number] 1 tablet DAILY 1 tablet DAILY (route: oral) Med Classific ation: Cardiovas cular Therapy Agents fludrocorti sone 0.1 mg tablet 12-14 00:00: 00 04-02 23:59 :00 No [id number] 1 tablet DAILY 1 tablet DAILY (route: oral) Med Classific ation: Endocrine folic acid 800 mcg tablet 12-14 00:00: 00 04-02 23:59 :00 No [id number] 1 tablet DAILY 1 tablet DAILY (route: oral) Med Classific ation: Electroly te Balance-N utritiona l Products levothyroxi ne 25 mcg tablet 12-14 00:00: 00 04-02 23:59 :00 No [id number] 1 tablet DAILY 1 tablet DAILY (route: oral) Med Classific ation: Endocrine magnesium 400 mg (as magnesium oxide) tablet 12-14 00:00: 00 04-02 23:59 :00 No [id number] 1 tablet BEDTIME 1 tablet BEDTIME (route: oral) Med Classific ation: Electroly te Balance-N utritiona l Products melatonin 10 mg tablet 12-14 00:00: 00 04-02 23:59 :00 No [id number] 1 tablet BEDTIME 1 tablet BEDTIME (route: oral) Med Classific ation: Central Nervous System Agents montelukast 10 mg tablet 12-14 00:00: 00 04-02 23:59 :00 No [id number] 1 tablet BEDTIME 1 tablet BEDTIME (route: oral) Med Classific ation: Respirato ry Therapy Agents sertraline 25 mg tablet 12-14 00:00: 00 01-19 23:59 :00 No [id number] 2 tablet DAILY 2 tablet DAILY (route: oral) Med Classific ation: Central Nervous System Agents sumatriptan 100 mg tablet 12-14 00:00: 00 04-02 23:59 :00 No [id number] 1 tablet DAILY 1 tablet DAILY (route: oral) Med Classific ation: Central Nervous System Agents topiramate 100 mg tablet 12-14 00:00: 00 04-02 23:59 :00 No [id number] 1 tablet 2 TIMES DAILY 1 tablet 2 TIMES DAILY (route: oral) Med Classific ation: Central Nervous System Agents sertraline 25 mg tablet 8 00:00: 00 04-02 23:59 :00 No [id number] 3 tablet EVERY AM 3 tablet EVERY AM (route: oral) Med Classific ation: Central Nervous System Agents memantine 7 mg capsule sprinkle,ex tended release 24hr 02-12 00:00: 00 02-16 23:59 :00 No [id number] 1 capsule DAILY 1 capsule DAILY (route: oral) Med Classific ation: Cognitive Disorder Therapy fluticasone propionate 50 mcg/actuati on nasal spray,suspe nsion 02-16 00:00: 00 04-02 23:59 :00 No [id number] 1 spray DAILY 1 spray DAILY (route: nasal) Med Classific ation: Respirato ry Therapy Agents memantine 14 mg capsule sprinkle,ex tended release 24hr 02-16 00:00: 00 04-02 23:59 :00 No [id number] 1 capsule DAILY 1 capsule DAILY (route: oral) Med Classific ation: Cognitive Disorder Therapy cefpodoxime 200 mg tablet 03-09 00:00: 00 04-02 23:59 :00 No [id number] 1 tablet 2 TIMES DAILY 1 tablet 2 TIMES DAILY (route: oral) Med Classific ation: Anti-Infe ctive Agents aspirin 81 mg tablet 2024-06 00:00: 00 Yes [id number] 1 tablet EVERY AM 1 tablet EVERY AM (route: oral) Med Classific ation: Hematolog ical Agents atorvastati n 80 mg tablet 2024-06 00:00: 00 Yes [id number] 1 tablet BEDTIME 1 tablet BEDTIME (route: oral) Med Classific ation: Cardiovas cular Therapy Agents cetirizine 10 mg tablet 2024-06 00:00: 00 Yes [id number] 1 tablet EVERY AM 1 tablet EVERY AM (route: oral) Med Classific ation: Respirato ry Therapy Agents clonazepam 0.5 mg tablet 2024-06 00:00: 00 Yes [id number] 1 tablet EVERY AM 1 tablet EVERY AM (route: oral) Med Classific ation: Central Nervous System Agents clonazepam 0.5 mg tablet 2024-06 00:00: 00 Yes [id number] 1 tablet BEDTIME 1 tablet BEDTIME (route: oral) Med Classific ation: Central Nervous System Agents docusate sodium 100 mg capsule 2024-06 00:00: 00 Yes [id number] 1 capsule BEDTIME 1 capsule BEDTIME (route: oral) Med Classific ation: Gastroint estinal Therapy Agents ezetimibe 10 mg tablet 2024-06 00:00: 00 Yes [id number] 1 tablet BEDTIME 1 tablet BEDTIME (route: oral) Med Classific ation: Cardiovas cular Therapy Agents fludrocorti sone 0.1 mg tablet 2024-06 00:00: 00 Yes [id number] 1 tablet EVERY AM 1 tablet EVERY AM (route: oral) Med Classific ation: Endocrine fluticasone propionate 50 mcg/actuati on nasal spray,suspe nsion 2024-06 00:00: 00 Yes [id number] 1 spray EVERY AM 1 spray EVERY AM (route: nasal) Med Classific ation: Respirato ry Therapy Agents folic acid 800 mcg tablet 2024-06 00:00: 00 Yes [id number] 1 tablet EVERY AM 1 tablet EVERY AM (route: oral) Med Classific ation: Electroly te Balance-N utritiona l Products levothyroxi ne 25 mcg tablet 2024-06 00:00: 00 Yes [id number] 1 tablet EVERY AM 1 tablet EVERY AM (route: oral) Med Classific ation: Endocrine magnesium 400 mg (as magnesium oxide) tablet 2024-06 00:00: 00 Yes [id number] 1 tablet BEDTIME 1 tablet BEDTIME (route: oral) Med Classific ation: Electroly te Balance-N utritiona l Products melatonin 10 mg tablet 2024-06 00:00: 00 Yes [id number] 1 tablet BEDTIME 1 tablet BEDTIME (route: oral) Med Classific ation: Central Nervous System Agents memantine 14 mg capsule sprinkle,ex tended release 24hr 2024-06 00:00: 00 Yes [id number] 1 capsule EVERY AM 1 capsule EVERY AM (route: oral) Med Classific ation: Cognitive Disorder Therapy montelukast 10 mg tablet 2024-06 00:00: 00 Yes [id number] 1 tablet BEDTIME 1 tablet BEDTIME (route: oral) Med Classific ation: Respirato ry Therapy Agents sertraline 25 mg tablet 2024-06 0 00:00: 00 Yes [id number] 4 tablet EVERY AM 4 tablet EVERY AM (route: oral) Med Classific ation: Central Nervous System Agents sumatriptan 100 mg tablet 2024-06 0 00:00: 00 Yes [id number] Per instruc tions NEEDED Per instructio ns NEEDED (route: oral) Med Classific ation: Central Nervous System Agents topiramate 100 mg tablet 2024-06 0 00:00: 00 Yes [id number] 1 tablet EVERY AM 1 tablet EVERY AM (route: oral) Med Classific ation: Central Nervous System Agents topiramate 100 mg tablet 2024-06 0 00:00: 00 Yes [id number] 1 tablet BEDTIME 1 tablet BEDTIME (route: [...] AWARENESS FOR SAFETY AND WILL NOTIFY CLINICAL PATIENT COORDINATOR AND PHYSICIAN/PROVIDER WITH ANY CHANGE IN CONDITION. [code = SKILLED NURSE WILL MAINTAIN SITUATIONAL AWARENESS FOR SAFETY AND WILL NOTIFY CLINICAL PATIENT COORDINATOR AND PHYSICIAN/PROVIDER WITH ANY CHANGE IN CONDITION.] [...] Type Admission Type Attending [facility] Care Facility Care Department Encounter ID Discharge Date Discharge Status Discharge Condition Discharge Reason Percent Goals Met 2025-04-13 00:00:00 2025-06-11 00:00:00 Outpatient RECERTIFIC FRED MCARTHURHB [id number] 87.50
--- OUTSIDE RECORDS SUMMARY | 2025-06-10 19:00 | XMS_ITS | Clinical Summary ---
Author Organization Unknown Care Team Providers Care Staff Pharmacist Hospital Name Role Phone RONI ALVARADO, MANDO Unavailable Unavailable RIZWANA AQUINO, FRED Unavailable Unavailable Payers Payer Name Policy Type Policy Number Effective Date Expira tion Date [facility] [place] [id number] MEDICAID [facility] [id number] MEDICARE - [facility] [id number] Problems Condition Name Condition Details Condition Category [...] 12-14 00:00: 00 04-02 23:59 :00 No [id number] 1 tablet DAILY 1 tablet DAILY (route: oral) Med Classific ation: Hematolog ical Agents atorvastati n 80 mg tablet 12-14 00:00: 00 04-02 23:59 :00 No [id number] 1 tablet BEDTIME 1 tablet BEDTIME (route: oral) Med Classific ation: Cardiovas cular Therapy Agents cetirizine 10 mg tablet 12-14 00:00: 00 04-02 23:59 :00 No [id number] 1 tablet DAILY 1 tablet DAILY (route: oral) Med Classific ation: Respirato ry Therapy Agents clonazepam 0.5 mg tablet 12-14 00:00: 00 04-02 23:59 :00 No [id number] PRN FOR ANXIETY/MINH TATiON 1 tablet 2 TIMES DAILY 1 tablet 2 TIMES DAILY (route: oral) Med Classific ation: Central Nervous System Agents docusate sodium 100 mg capsule 12-14 00:00: 00 04-02 23:59 :00 No [id number] 1 capsule BEDTIME 1 capsule BEDTIME (route: oral) Med Classific ation: Gastroint estinal Therapy Agents ezetimibe 10 mg tablet 12-14 00:00: 00 04-02 23:59 :00 No [id number] 1 tablet DAILY 1 tablet DAILY (route: oral) Med Classific ation: Cardiovas cular Therapy Agents fludrocorti sone 0.1 mg tablet 12-14 00:00: 00 04-02 23:59 :00 No [id number] 1 tablet DAILY 1 tablet DAILY (route: oral) Med Classific ation: Endocrine folic acid 800 mcg tablet 12-14 00:00: 00 04-02 23:59 :00 No [id number] 1 tablet DAILY 1 tablet DAILY (route: oral) Med Classific ation: Electroly te Balance-N utritiona l Products levothyroxi ne 25 mcg tablet 12-14 00:00: 00 04-02 23:59 :00 No [id number] 1 tablet DAILY 1 tablet DAILY (route: oral) Med Classific ation: Endocrine magnesium 400 mg (as magnesium oxide) tablet 12-14 00:00: 00 04-02 23:59 :00 No [id number] 1 tablet BEDTIME 1 tablet BEDTIME (route: oral) Med Classific ation: Electroly te Balance-N utritiona l Products melatonin 10 mg tablet 12-14 00:00: 00 04-02 23:59 :00 No [id number] 1 tablet BEDTIME 1 tablet BEDTIME (route: oral) Med Classific ation: Central Nervous System Agents montelukast 10 mg tablet 12-14 00:00: 00 04-02 23:59 :00 No [id number] 1 tablet BEDTIME 1 tablet BEDTIME (route: oral) Med Classific ation: Respirato ry Therapy Agents sertraline 25 mg tablet 12-14 00:00: 00 01-19 23:59 :00 No [id number] 2 tablet DAILY 2 tablet DAILY (route: oral) Med Classific ation: Central Nervous System Agents sumatriptan 100 mg tablet 12-14 00:00: 00 04-02 23:59 :00 No [id number] 1 tablet DAILY 1 tablet DAILY (route: oral) Med Classific ation: Central Nervous System Agents topiramate 100 mg tablet 12-14 00:00: 00 04-02 23:59 :00 No [id number] 1 tablet 2 TIMES DAILY 1 tablet 2 TIMES DAILY (route: oral) Med Classific ation: Central Nervous System Agents sertraline 25 mg tablet 8 00:00: 00 04-02 23:59 :00 No [id number] 3 tablet EVERY AM 3 tablet EVERY AM (route: oral) Med Classific ation: Central Nervous System Agents memantine 7 mg capsule sprinkle,ex tended release 24hr 02-12 00:00: 00 02-16 23:59 :00 No [id number] 1 capsule DAILY 1 capsule DAILY (route: oral) Med Classific ation: Cognitive Disorder Therapy fluticasone propionate 50 mcg/actuati on nasal spray,suspe nsion 02-16 00:00: 00 04-02 23:59 :00 No [id number] 1 spray DAILY 1 spray DAILY (route: nasal) Med Classific ation: Respirato ry Therapy Agents memantine 14 mg capsule sprinkle,ex tended release 24hr 02-16 00:00: 00 04-02 23:59 :00 No [id number] 1 capsule DAILY 1 capsule DAILY (route: oral) Med Classific ation: Cognitive Disorder Therapy cefpodoxime 200 mg tablet 03-09 00:00: 00 04-02 23:59 :00 No [id number] 1 tablet 2 TIMES DAILY 1 tablet 2 TIMES DAILY (route: oral) Med Classific ation: Anti-Infe ctive Agents aspirin 81 mg tablet 2024-06 00:00: 00 Yes [id number] 1 tablet EVERY AM 1 tablet EVERY AM (route: oral) Med Classific ation: Hematolog ical Agents atorvastati n 80 mg tablet 2024-06 00:00: 00 Yes [id number] 1 tablet BEDTIME 1 tablet BEDTIME (route: oral) Med Classific ation: Cardiovas cular Therapy Agents cetirizine 10 mg tablet 2024-06 00:00: 00 Yes [id number] 1 tablet EVERY AM 1 tablet EVERY AM (route: oral) Med Classific ation: Respirato ry Therapy Agents clonazepam 0.5 mg tablet 2024-06 00:00: 00 Yes [id number] 1 tablet EVERY AM 1 tablet EVERY AM (route: oral) Med Classific ation: Central Nervous System Agents clonazepam 0.5 mg tablet 2024-06 00:00: 00 Yes [id number] 1 tablet BEDTIME 1 tablet BEDTIME (route: oral) Med Classific ation: Central Nervous System Agents docusate sodium 100 mg capsule 2024-06 00:00: 00 Yes [id number] 1 capsule BEDTIME 1 capsule BEDTIME (route: oral) Med Classific ation: Gastroint estinal Therapy Agents ezetimibe 10 mg tablet 2024-06 00:00: 00 Yes [id number] 1 tablet BEDTIME 1 tablet BEDTIME (route: oral) Med Classific ation: Cardiovas cular Therapy Agents fludrocorti sone 0.1 mg tablet 2024-06 00:00: 00 Yes [id number] 1 tablet EVERY AM 1 tablet EVERY AM (route: oral) Med Classific ation: Endocrine fluticasone propionate 50 mcg/actuati on nasal spray,suspe nsion 2024-06 00:00: 00 Yes [id number] 1 spray EVERY AM 1 spray EVERY AM (route: nasal) Med Classific ation: Respirato ry Therapy Agents folic acid 800 mcg tablet 2024-06 00:00: 00 Yes [id number] 1 tablet EVERY AM 1 tablet EVERY AM (route: oral) Med Classific ation: Electroly te Balance-N utritiona l Products levothyroxi ne 25 mcg tablet 2024-06 00:00: 00 Yes [id number] 1 tablet EVERY AM 1 tablet EVERY AM (route: oral) Med Classific ation: Endocrine magnesium 400 mg (as magnesium oxide) tablet 2024-06 00:00: 00 Yes [id number] 1 tablet BEDTIME 1 tablet BEDTIME (route: oral) Med Classific ation: Electroly te Balance-N utritiona l Products melatonin 10 mg tablet 2024-06 00:00: 00 Yes [id number] 1 tablet BEDTIME 1 tablet BEDTIME (route: oral) Med Classific ation: Central Nervous System Agents memantine 14 mg capsule sprinkle,ex tended release 24hr 2024-06 00:00: 00 Yes [id number] 1 capsule EVERY AM 1 capsule EVERY AM (route: oral) Med Classific ation: Cognitive Disorder Therapy montelukast 10 mg tablet 2024-06 00:00: 00 Yes [id number] 1 tablet BEDTIME 1 tablet BEDTIME (route: oral) Med Classific ation: Respirato ry Therapy Agents sertraline 25 mg tablet 2024-06 0 00:00: 00 Yes [id number] 4 tablet EVERY AM 4 tablet EVERY AM (route: oral) Med Classific ation: Central Nervous System Agents sumatriptan 100 mg tablet 2024-06 0 00:00: 00 Yes [id number] Per instruc tions NEEDED Per instructio ns NEEDED (route: oral) Med Classific ation: Central Nervous System Agents topiramate 100 mg tablet 2024-06 0 00:00: 00 Yes [id number] 1 tablet EVERY AM 1 tablet EVERY AM (route: oral) Med Classific ation: Central Nervous System Agents topiramate 100 mg tablet 2024-06 0 00:00: 00 Yes [id number] 1 tablet BEDTIME 1 tablet BEDTIME (route: [...] AWARENESS FOR SAFETY AND WILL NOTIFY CLINICAL BATTERY HAND AND PHYSICIAN/PROVIDER WITH ANY CHANGE IN CONDITION. [code = SKILLED NURSE WILL MAINTAIN SITUATIONAL AWARENESS FOR SAFETY AND WILL NOTIFY CLINICAL BATTERY HAND AND PHYSICIAN/PROVIDER WITH ANY CHANGE IN CONDITION.] Goal 2025-04-08 Patient Goal - T O STAY OUT OF THE HOSPITAL. Goal 2025-02-11 Patient Goal - T O STAY OUT OF THE HOSPITAL. Goal Patient Goal - T O STAY OUT OF THE HOSPITAL. Goal Provider Goal - A PLAN OF CARE WILL BE ESTABLISHED THAT MEETS PATIENT'S LONGTERM NEEDS AND INCLUDES PATIENT GOAL FOR HOME [...] End Date/Time Encounter Type Admission Type Attending [facility] Care Facility Care Department Encounter ID Discharge Date Discharge Status Discharge Condition Discharge Reason Percent Goals Met 2025-04-13 00:00:00 2025-06-11 00:00:00 Outpatient RECERTIFIC FRED MCARTHURHB [id number] 87.50
--- OUTSIDE RECORDS SUMMARY | 2025-06-10 19:00 | XMS_ITS | Clinical Summary ---
Author Organization Unknown Care Team Providers Care Public Events Facilities Rental Manager Name Role Phone RONI ALVARADO, MANDO Unavailable Unavailable RIZWANA AQUINO, FRED Unavailable Unavailable Payers Payer Name Policy Type Policy Number Effective Date Expira tion Date [facility] [place] [id number] MEDICAID [facility] [id number] MEDICARE - [facility] [id number] Problems Condition Name Condition Details Condition Category [...] 12-14 00:00: 00 04-02 23:59 :00 No [id number] 1 tablet DAILY 1 tablet DAILY (route: oral) Med Classific ation: Hematolog ical Agents atorvastati n 80 mg tablet 12-14 00:00: 00 04-02 23:59 :00 No [id number] 1 tablet BEDTIME 1 tablet BEDTIME (route: oral) Med Classific ation: Cardiovas cular Therapy Agents cetirizine 10 mg tablet 12-14 00:00: 00 04-02 23:59 :00 No [id number] 1 tablet DAILY 1 tablet DAILY (route: oral) Med Classific ation: Respirato ry Therapy Agents clonazepam 0.5 mg tablet 12-14 00:00: 00 04-02 23:59 :00 No [id number] PRN FOR ANXIETY/MINH TATiON 1 tablet 2 TIMES DAILY 1 tablet 2 TIMES DAILY (route: oral) Med Classific ation: Central Nervous System Agents docusate sodium 100 mg capsule 12-14 00:00: 00 04-02 23:59 :00 No [id number] 1 capsule BEDTIME 1 capsule BEDTIME (route: oral) Med Classific ation: Gastroint estinal Therapy Agents ezetimibe 10 mg tablet 12-14 00:00: 00 04-02 23:59 :00 No [id number] 1 tablet DAILY 1 tablet DAILY (route: oral) Med Classific ation: Cardiovas cular Therapy Agents fludrocorti sone 0.1 mg tablet 12-14 00:00: 00 04-02 23:59 :00 No [id number] 1 tablet DAILY 1 tablet DAILY (route: oral) Med Classific ation: Endocrine folic acid 800 mcg tablet 12-14 00:00: 00 04-02 23:59 :00 No [id number] 1 tablet DAILY 1 tablet DAILY (route: oral) Med Classific ation: Electroly te Balance-N utritiona l Products levothyroxi ne 25 mcg tablet 12-14 00:00: 00 04-02 23:59 :00 No [id number] 1 tablet DAILY 1 tablet DAILY (route: oral) Med Classific ation: Endocrine magnesium 400 mg (as magnesium oxide) tablet 12-14 00:00: 00 04-02 23:59 :00 No [id number] 1 tablet BEDTIME 1 tablet BEDTIME (route: oral) Med Classific ation: Electroly te Balance-N utritiona l Products melatonin 10 mg tablet 12-14 00:00: 00 04-02 23:59 :00 No [id number] 1 tablet BEDTIME 1 tablet BEDTIME (route: oral) Med Classific ation: Central Nervous System Agents montelukast 10 mg tablet 12-14 00:00: 00 04-02 23:59 :00 No [id number] 1 tablet BEDTIME 1 tablet BEDTIME (route: oral) Med Classific ation: Respirato ry Therapy Agents sertraline 25 mg tablet 12-14 00:00: 00 01-19 23:59 :00 No [id number] 2 tablet DAILY 2 tablet DAILY (route: oral) Med Classific ation: Central Nervous System Agents sumatriptan 100 mg tablet 12-14 00:00: 00 04-02 23:59 :00 No [id number] 1 tablet DAILY 1 tablet DAILY (route: oral) Med Classific ation: Central Nervous System Agents topiramate 100 mg tablet 12-14 00:00: 00 04-02 23:59 :00 No [id number] 1 tablet 2 TIMES DAILY 1 tablet 2 TIMES DAILY (route: oral) Med Classific ation: Central Nervous System Agents sertraline 25 mg tablet 8 00:00: 00 04-02 23:59 :00 No [id number] 3 tablet EVERY AM 3 tablet EVERY AM (route: oral) Med Classific ation: Central Nervous System Agents memantine 7 mg capsule sprinkle,ex tended release 24hr 02-12 00:00: 00 02-16 23:59 :00 No [id number] 1 capsule DAILY 1 capsule DAILY (route: oral) Med Classific ation: Cognitive Disorder Therapy fluticasone propionate 50 mcg/actuati on nasal spray,suspe nsion 02-16 00:00: 00 04-02 23:59 :00 No [id number] 1 spray DAILY 1 spray DAILY (route: nasal) Med Classific ation: Respirato ry Therapy Agents memantine 14 mg capsule sprinkle,ex tended release 24hr 02-16 00:00: 00 04-02 23:59 :00 No [id number] 1 capsule DAILY 1 capsule DAILY (route: oral) Med Classific ation: Cognitive Disorder Therapy cefpodoxime 200 mg tablet 03-09 00:00: 00 04-02 23:59 :00 No [id number] 1 tablet 2 TIMES DAILY 1 tablet 2 TIMES DAILY (route: oral) Med Classific ation: Anti-Infe ctive Agents aspirin 81 mg tablet 2024-06 00:00: 00 Yes [id number] 1 tablet EVERY AM 1 tablet EVERY AM (route: oral) Med Classific ation: Hematolog ical Agents atorvastati n 80 mg tablet 2024-06 00:00: 00 Yes [id number] 1 tablet BEDTIME 1 tablet BEDTIME (route: oral) Med Classific ation: Cardiovas cular Therapy Agents cetirizine 10 mg tablet 2024-06 00:00: 00 Yes [id number] 1 tablet EVERY AM 1 tablet EVERY AM (route: oral) Med Classific ation: Respirato ry Therapy Agents clonazepam 0.5 mg tablet 2024-06 00:00: 00 Yes [id number] 1 tablet EVERY AM 1 tablet EVERY AM (route: oral) Med Classific ation: Central Nervous System Agents clonazepam 0.5 mg tablet 2024-06 00:00: 00 Yes [id number] 1 tablet BEDTIME 1 tablet BEDTIME (route: oral) Med Classific ation: Central Nervous System Agents docusate sodium 100 mg capsule 2024-06 00:00: 00 Yes [id number] 1 capsule BEDTIME 1 capsule BEDTIME (route: oral) Med Classific ation: Gastroint estinal Therapy Agents ezetimibe 10 mg tablet 2024-06 00:00: 00 Yes [id number] 1 tablet BEDTIME 1 tablet BEDTIME (route: oral) Med Classific ation: Cardiovas cular Therapy Agents fludrocorti sone 0.1 mg tablet 2024-06 00:00: 00 Yes [id number] 1 tablet EVERY AM 1 tablet EVERY AM (route: oral) Med Classific ation: Endocrine fluticasone propionate 50 mcg/actuati on nasal spray,suspe nsion 2024-06 00:00: 00 Yes [id number] 1 spray EVERY AM 1 spray EVERY AM (route: nasal) Med Classific ation: Respirato ry Therapy Agents folic acid 800 mcg tablet 2024-06 00:00: 00 Yes [id number] 1 tablet EVERY AM 1 tablet EVERY AM (route: oral) Med Classific ation: Electroly te Balance-N utritiona l Products levothyroxi ne 25 mcg tablet 2024-06 00:00: 00 Yes [id number] 1 tablet EVERY AM 1 tablet EVERY AM (route: oral) Med Classific ation: Endocrine magnesium 400 mg (as magnesium oxide) tablet 2024-06 00:00: 00 Yes [id number] 1 tablet BEDTIME 1 tablet BEDTIME (route: oral) Med Classific ation: Electroly te Balance-N utritiona l Products melatonin 10 mg tablet 2024-06 00:00: 00 Yes [id number] 1 tablet BEDTIME 1 tablet BEDTIME (route: oral) Med Classific ation: Central Nervous System Agents memantine 14 mg capsule sprinkle,ex tended release 24hr 2024-06 00:00: 00 Yes [id number] 1 capsule EVERY AM 1 capsule EVERY AM (route: oral) Med Classific ation: Cognitive Disorder Therapy montelukast 10 mg tablet 2024-06 00:00: 00 Yes [id number] 1 tablet BEDTIME 1 tablet BEDTIME (route: oral) Med Classific ation: Respirato ry Therapy Agents sertraline 25 mg tablet 2024-06 0 00:00: 00 Yes [id number] 4 tablet EVERY AM 4 tablet EVERY AM (route: oral) Med Classific ation: Central Nervous System Agents sumatriptan 100 mg tablet 2024-06 0 00:00: 00 Yes [id number] Per instruc tions NEEDED Per instructio ns NEEDED (route: oral) Med Classific ation: Central Nervous System Agents topiramate 100 mg tablet 2024-06 0 00:00: 00 Yes [id number] 1 tablet EVERY AM 1 tablet EVERY AM (route: oral) Med Classific ation: Central Nervous System Agents topiramate 100 mg tablet 2024-06 0 00:00: 00 Yes [id number] 1 tablet BEDTIME 1 tablet BEDTIME (route: [...] AWARENESS FOR SAFETY AND WILL NOTIFY CLINICAL RESIDENT SERVICES MANAGER AND PHYSICIAN/PROVIDER WITH ANY CHANGE IN CONDITION. [code = SKILLED NURSE WILL MAINTAIN SITUATIONAL AWARENESS FOR SAFETY AND WILL NOTIFY CLINICAL RESIDENT SERVICES MANAGER AND PHYSICIAN/PROVIDER WITH ANY CHANGE IN CONDITION.] Goal 2025-04-08 Patient Goal - T O STAY OUT OF THE HOSPITAL. Goal 2025-02-11 Patient Goal - T O STAY OUT OF THE HOSPITAL. Goal Patient Goal - T O STAY OUT OF THE HOSPITAL. Goal Provider Goal - A PLAN OF CARE WILL BE ESTABLISHED THAT MEETS PATIENT'S SENIOR CARE NEEDS AND INCLUDES PATIENT GOAL FOR HOME [...] End Date/Time Encounter Type Admission Type Attending [facility] Care Facility Care Department Encounter ID Discharge Date Discharge Status Discharge Condition Discharge Reason Percent Goals Met 2025-04-13 00:00:00 2025-06-11 00:00:00 Outpatient RECERTIFIC FRED MCARTHURHB [id number] 87.50
--- OUTSIDE RECORDS SUMMARY | 2025-06-10 19:00 | XMS_ITS | Clinical Summary ---
Author Organization Unknown Care Team Providers Care Lockstitch Back Maker Name Role Phone RONI ALVARADO, MANDO Unavailable Unavailable RIZWANA AQUINO, FRED Unavailable Unavailable Payers Payer Name Policy Type Policy Number Effective Date Expira tion Date [facility] [place] [id number] MEDICAID [facility] [id number] MEDICARE - [facility] [id number] Problems Condition Name Condition Details Condition Category [...] 12-14 00:00: 00 04-02 23:59 :00 No [id number] 1 tablet DAILY 1 tablet DAILY (route: oral) Med Classific ation: Hematolog ical Agents atorvastati n 80 mg tablet 12-14 00:00: 00 04-02 23:59 :00 No [id number] 1 tablet BEDTIME 1 tablet BEDTIME (route: oral) Med Classific ation: Cardiovas cular Therapy Agents cetirizine 10 mg tablet 12-14 00:00: 00 04-02 23:59 :00 No [id number] 1 tablet DAILY 1 tablet DAILY (route: oral) Med Classific ation: Respirato ry Therapy Agents clonazepam 0.5 mg tablet 12-14 00:00: 00 04-02 23:59 :00 No [id number] PRN FOR ANXIETY/MINH TATiON 1 tablet 2 TIMES DAILY 1 tablet 2 TIMES DAILY (route: oral) Med Classific ation: Central Nervous System Agents docusate sodium 100 mg capsule 12-14 00:00: 00 04-02 23:59 :00 No [id number] 1 capsule BEDTIME 1 capsule BEDTIME (route: oral) Med Classific ation: Gastroint estinal Therapy Agents ezetimibe 10 mg tablet 12-14 00:00: 00 04-02 23:59 :00 No [id number] 1 tablet DAILY 1 tablet DAILY (route: oral) Med Classific ation: Cardiovas cular Therapy Agents fludrocorti sone 0.1 mg tablet 12-14 00:00: 00 04-02 23:59 :00 No [id number] 1 tablet DAILY 1 tablet DAILY (route: oral) Med Classific ation: Endocrine folic acid 800 mcg tablet 12-14 00:00: 00 04-02 23:59 :00 No [id number] 1 tablet DAILY 1 tablet DAILY (route: oral) Med Classific ation: Electroly te Balance-N utritiona l Products levothyroxi ne 25 mcg tablet 12-14 00:00: 00 04-02 23:59 :00 No [id number] 1 tablet DAILY 1 tablet DAILY (route: oral) Med Classific ation: Endocrine magnesium 400 mg (as magnesium oxide) tablet 12-14 00:00: 00 04-02 23:59 :00 No [id number] 1 tablet BEDTIME 1 tablet BEDTIME (route: oral) Med Classific ation: Electroly te Balance-N utritiona l Products melatonin 10 mg tablet 12-14 00:00: 00 04-02 23:59 :00 No [id number] 1 tablet BEDTIME 1 tablet BEDTIME (route: oral) Med Classific ation: Central Nervous System Agents montelukast 10 mg tablet 12-14 00:00: 00 04-02 23:59 :00 No [id number] 1 tablet BEDTIME 1 tablet BEDTIME (route: oral) Med Classific ation: Respirato ry Therapy Agents sertraline 25 mg tablet 12-14 00:00: 00 01-19 23:59 :00 No [id number] 2 tablet DAILY 2 tablet DAILY (route: oral) Med Classific ation: Central Nervous System Agents sumatriptan 100 mg tablet 12-14 00:00: 00 04-02 23:59 :00 No [id number] 1 tablet DAILY 1 tablet DAILY (route: oral) Med Classific ation: Central Nervous System Agents topiramate 100 mg tablet 12-14 00:00: 00 04-02 23:59 :00 No [id number] 1 tablet 2 TIMES DAILY 1 tablet 2 TIMES DAILY (route: oral) Med Classific ation: Central Nervous System Agents sertraline 25 mg tablet 8 00:00: 00 04-02 23:59 :00 No [id number] 3 tablet EVERY AM 3 tablet EVERY AM (route: oral) Med Classific ation: Central Nervous System Agents memantine 7 mg capsule sprinkle,ex tended release 24hr 02-12 00:00: 00 02-16 23:59 :00 No [id number] 1 capsule DAILY 1 capsule DAILY (route: oral) Med Classific ation: Cognitive Disorder Therapy fluticasone propionate 50 mcg/actuati on nasal spray,suspe nsion 02-16 00:00: 00 04-02 23:59 :00 No [id number] 1 spray DAILY 1 spray DAILY (route: nasal) Med Classific ation: Respirato ry Therapy Agents memantine 14 mg capsule sprinkle,ex tended release 24hr 02-16 00:00: 00 04-02 23:59 :00 No [id number] 1 capsule DAILY 1 capsule DAILY (route: oral) Med Classific ation: Cognitive Disorder Therapy cefpodoxime 200 mg tablet 03-09 00:00: 00 04-02 23:59 :00 No [id number] 1 tablet 2 TIMES DAILY 1 tablet 2 TIMES DAILY (route: oral) Med Classific ation: Anti-Infe ctive Agents aspirin 81 mg tablet 2024-06 00:00: 00 Yes [id number] 1 tablet EVERY AM 1 tablet EVERY AM (route: oral) Med Classific ation: Hematolog ical Agents atorvastati n 80 mg tablet 2024-06 00:00: 00 Yes [id number] 1 tablet BEDTIME 1 tablet BEDTIME (route: oral) Med Classific ation: Cardiovas cular Therapy Agents cetirizine 10 mg tablet 2024-06 00:00: 00 Yes [id number] 1 tablet EVERY AM 1 tablet EVERY AM (route: oral) Med Classific ation: Respirato ry Therapy Agents clonazepam 0.5 mg tablet 2024-06 00:00: 00 Yes [id number] 1 tablet EVERY AM 1 tablet EVERY AM (route: oral) Med Classific ation: Central Nervous System Agents clonazepam 0.5 mg tablet 2024-06 00:00: 00 Yes [id number] 1 tablet BEDTIME 1 tablet BEDTIME (route: oral) Med Classific ation: Central Nervous System Agents docusate sodium 100 mg capsule 2024-06 00:00: 00 Yes [id number] 1 capsule BEDTIME 1 capsule BEDTIME (route: oral) Med Classific ation: Gastroint estinal Therapy Agents ezetimibe 10 mg tablet 2024-06 00:00: 00 Yes [id number] 1 tablet BEDTIME 1 tablet BEDTIME (route: oral) Med Classific ation: Cardiovas cular Therapy Agents fludrocorti sone 0.1 mg tablet 2024-06 00:00: 00 Yes [id number] 1 tablet EVERY AM 1 tablet EVERY AM (route: oral) Med Classific ation: Endocrine fluticasone propionate 50 mcg/actuati on nasal spray,suspe nsion 2024-06 00:00: 00 Yes [id number] 1 spray EVERY AM 1 spray EVERY AM (route: nasal) Med Classific ation: Respirato ry Therapy Agents folic acid 800 mcg tablet 2024-06 00:00: 00 Yes [id number] 1 tablet EVERY AM 1 tablet EVERY AM (route: oral) Med Classific ation: Electroly te Balance-N utritiona l Products levothyroxi ne 25 mcg tablet 2024-06 00:00: 00 Yes [id number] 1 tablet EVERY AM 1 tablet EVERY AM (route: oral) Med Classific ation: Endocrine magnesium 400 mg (as magnesium oxide) tablet 2024-06 00:00: 00 Yes [id number] 1 tablet BEDTIME 1 tablet BEDTIME (route: oral) Med Classific ation: Electroly te Balance-N utritiona l Products melatonin 10 mg tablet 2024-06 00:00: 00 Yes [id number] 1 tablet BEDTIME 1 tablet BEDTIME (route: oral) Med Classific ation: Central Nervous System Agents memantine 14 mg capsule sprinkle,ex tended release 24hr 2024-06 00:00: 00 Yes [id number] 1 capsule EVERY AM 1 capsule EVERY AM (route: oral) Med Classific ation: Cognitive Disorder Therapy montelukast 10 mg tablet 2024-06 00:00: 00 Yes [id number] 1 tablet BEDTIME 1 tablet BEDTIME (route: oral) Med Classific ation: Respirato ry Therapy Agents sertraline 25 mg tablet 2024-06 0 00:00: 00 Yes [id number] 4 tablet EVERY AM 4 tablet EVERY AM (route: oral) Med Classific ation: Central Nervous System Agents sumatriptan 100 mg tablet 2024-06 0 00:00: 00 Yes [id number] Per instruc tions NEEDED Per instructio ns NEEDED (route: oral) Med Classific ation: Central Nervous System Agents topiramate 100 mg tablet 2024-06 0 00:00: 00 Yes [id number] 1 tablet EVERY AM 1 tablet EVERY AM (route: oral) Med Classific ation: Central Nervous System Agents topiramate 100 mg tablet 2024-06 0 00:00: 00 Yes [id number] 1 tablet BEDTIME 1 tablet BEDTIME (route: [...] AWARENESS FOR SAFETY AND WILL NOTIFY CLINICAL VASCULAR SURGEON AND PHYSICIAN/PROVIDER WITH ANY CHANGE IN CONDITION. [code = SKILLED NURSE WILL MAINTAIN SITUATIONAL AWARENESS FOR SAFETY AND WILL NOTIFY CLINICAL VASCULAR SURGEON AND PHYSICIAN/PROVIDER WITH ANY CHANGE IN CONDITION.] Goal 2025-04-08 Patient Goal - T O STAY OUT OF THE HOSPITAL. Goal 2025-02-11 Patient Goal - T O STAY OUT OF THE HOSPITAL. Goal Patient Goal - T O STAY OUT OF THE HOSPITAL. Goal Provider Goal - A PLAN OF CARE WILL BE ESTABLISHED THAT MEETS PATIENT'S GROUP HOME NEEDS AND INCLUDES PATIENT GOAL FOR [...] Date/Time Encounter Type Admission Type Attending [facility] Care Facility Care Department Encounter ID Discharge Date Discharge Status Discharge Condition Discharge Reason Percent Goals Met 2025-04-13 00:00:00 2025-06-11 00:00:00 Outpatient RECERTIFIC FRED MCARTHURHB [id number] 87.50
--- OUTSIDE RECORDS SUMMARY | 2025-06-10 19:00 | XMS_ITS | Clinical Summary ---
Author Organization Unknown Care Team Providers Care Director Of Child Welfare Services Name Role Phone RONI ALVARADO, MANDO Unavailable Unavailable RIZWANA AQUINO, FRED Unavailable Unavailable Payers Payer Name Policy Type Policy Number Effective Date Expira tion Date [facility] [place] [id number] MEDICAID [facility] [id number] MEDICARE - [facility] [id number] Problems Condition Name Condition Details Condition Category [...] 12-14 00:00: 00 04-02 23:59 :00 No [id number] 1 tablet DAILY 1 tablet DAILY (route: oral) Med Classific ation: Hematolog ical Agents atorvastati n 80 mg tablet 12-14 00:00: 00 04-02 23:59 :00 No [id number] 1 tablet BEDTIME 1 tablet BEDTIME (route: oral) Med Classific ation: Cardiovas cular Therapy Agents cetirizine 10 mg tablet 12-14 00:00: 00 04-02 23:59 :00 No [id number] 1 tablet DAILY 1 tablet DAILY (route: oral) Med Classific ation: Respirato ry Therapy Agents clonazepam 0.5 mg tablet 12-14 00:00: 00 04-02 23:59 :00 No [id number] PRN FOR ANXIETY/MINH TATiON 1 tablet 2 TIMES DAILY 1 tablet 2 TIMES DAILY (route: oral) Med Classific ation: Central Nervous System Agents docusate sodium 100 mg capsule 12-14 00:00: 00 04-02 23:59 :00 No [id number] 1 capsule BEDTIME 1 capsule BEDTIME (route: oral) Med Classific ation: Gastroint estinal Therapy Agents ezetimibe 10 mg tablet 12-14 00:00: 00 04-02 23:59 :00 No [id number] 1 tablet DAILY 1 tablet DAILY (route: oral) Med Classific ation: Cardiovas cular Therapy Agents fludrocorti sone 0.1 mg tablet 12-14 00:00: 00 04-02 23:59 :00 No [id number] 1 tablet DAILY 1 tablet DAILY (route: oral) Med Classific ation: Endocrine folic acid 800 mcg tablet 12-14 00:00: 00 04-02 23:59 :00 No [id number] 1 tablet DAILY 1 tablet DAILY (route: oral) Med Classific ation: Electroly te Balance-N utritiona l Products levothyroxi ne 25 mcg tablet 12-14 00:00: 00 04-02 23:59 :00 No [id number] 1 tablet DAILY 1 tablet DAILY (route: oral) Med Classific ation: Endocrine magnesium 400 mg (as magnesium oxide) tablet 12-14 00:00: 00 04-02 23:59 :00 No [id number] 1 tablet BEDTIME 1 tablet BEDTIME (route: oral) Med Classific ation: Electroly te Balance-N utritiona l Products melatonin 10 mg tablet 12-14 00:00: 00 04-02 23:59 :00 No [id number] 1 tablet BEDTIME 1 tablet BEDTIME (route: oral) Med Classific ation: Central Nervous System Agents montelukast 10 mg tablet 12-14 00:00: 00 04-02 23:59 :00 No [id number] 1 tablet BEDTIME 1 tablet BEDTIME (route: oral) Med Classific ation: Respirato ry Therapy Agents sertraline 25 mg tablet 12-14 00:00: 00 01-19 23:59 :00 No [id number] 2 tablet DAILY 2 tablet DAILY (route: oral) Med Classific ation: Central Nervous System Agents sumatriptan 100 mg tablet 12-14 00:00: 00 04-02 23:59 :00 No [id number] 1 tablet DAILY 1 tablet DAILY (route: oral) Med Classific ation: Central Nervous System Agents topiramate 100 mg tablet 12-14 00:00: 00 04-02 23:59 :00 No [id number] 1 tablet 2 TIMES DAILY 1 tablet 2 TIMES DAILY (route: oral) Med Classific ation: Central Nervous System Agents sertraline 25 mg tablet 8 00:00: 00 04-02 23:59 :00 No [id number] 3 tablet EVERY AM 3 tablet EVERY AM (route: oral) Med Classific ation: Central Nervous System Agents memantine 7 mg capsule sprinkle,ex tended release 24hr 02-12 00:00: 00 02-16 23:59 :00 No [id number] 1 capsule DAILY 1 capsule DAILY (route: oral) Med Classific ation: Cognitive Disorder Therapy fluticasone propionate 50 mcg/actuati on nasal spray,suspe nsion 02-16 00:00: 00 04-02 23:59 :00 No [id number] 1 spray DAILY 1 spray DAILY (route: nasal) Med Classific ation: Respirato ry Therapy Agents memantine 14 mg capsule sprinkle,ex tended release 24hr 02-16 00:00: 00 04-02 23:59 :00 No [id number] 1 capsule DAILY 1 capsule DAILY (route: oral) Med Classific ation: Cognitive Disorder Therapy cefpodoxime 200 mg tablet 03-09 00:00: 00 04-02 23:59 :00 No [id number] 1 tablet 2 TIMES DAILY 1 tablet 2 TIMES DAILY (route: oral) Med Classific ation: Anti-Infe ctive Agents aspirin 81 mg tablet 2024-06 00:00: 00 Yes [id number] 1 tablet EVERY AM 1 tablet EVERY AM (route: oral) Med Classific ation: Hematolog ical Agents atorvastati n 80 mg tablet 2024-06 00:00: 00 Yes [id number] 1 tablet BEDTIME 1 tablet BEDTIME (route: oral) Med Classific ation: Cardiovas cular Therapy Agents cetirizine 10 mg tablet 2024-06 00:00: 00 Yes [id number] 1 tablet EVERY AM 1 tablet EVERY AM (route: oral) Med Classific ation: Respirato ry Therapy Agents clonazepam 0.5 mg tablet 2024-06 00:00: 00 Yes [id number] 1 tablet EVERY AM 1 tablet EVERY AM (route: oral) Med Classific ation: Central Nervous System Agents clonazepam 0.5 mg tablet 2024-06 00:00: 00 Yes [id number] 1 tablet BEDTIME 1 tablet BEDTIME (route: oral) Med Classific ation: Central Nervous System Agents docusate sodium 100 mg capsule 2024-06 00:00: 00 Yes [id number] 1 capsule BEDTIME 1 capsule BEDTIME (route: oral) Med Classific ation: Gastroint estinal Therapy Agents ezetimibe 10 mg tablet 2024-06 00:00: 00 Yes [id number] 1 tablet BEDTIME 1 tablet BEDTIME (route: oral) Med Classific ation: Cardiovas cular Therapy Agents fludrocorti sone 0.1 mg tablet 2024-06 00:00: 00 Yes [id number] 1 tablet EVERY AM 1 tablet EVERY AM (route: oral) Med Classific ation: Endocrine fluticasone propionate 50 mcg/actuati on nasal spray,suspe nsion 2024-06 00:00: 00 Yes [id number] 1 spray EVERY AM 1 spray EVERY AM (route: nasal) Med Classific ation: Respirato ry Therapy Agents folic acid 800 mcg tablet 2024-06 00:00: 00 Yes [id number] 1 tablet EVERY AM 1 tablet EVERY AM (route: oral) Med Classific ation: Electroly te Balance-N utritiona l Products levothyroxi ne 25 mcg tablet 2024-06 00:00: 00 Yes [id number] 1 tablet EVERY AM 1 tablet EVERY AM (route: oral) Med Classific ation: Endocrine magnesium 400 mg (as magnesium oxide) tablet 2024-06 00:00: 00 Yes [id number] 1 tablet BEDTIME 1 tablet BEDTIME (route: oral) Med Classific ation: Electroly te Balance-N utritiona l Products melatonin 10 mg tablet 2024-06 00:00: 00 Yes [id number] 1 tablet BEDTIME 1 tablet BEDTIME (route: oral) Med Classific ation: Central Nervous System Agents memantine 14 mg capsule sprinkle,ex tended release 24hr 2024-06 00:00: 00 Yes [id number] 1 capsule EVERY AM 1 capsule EVERY AM (route: oral) Med Classific ation: Cognitive Disorder Therapy montelukast 10 mg tablet 2024-06 00:00: 00 Yes [id number] 1 tablet BEDTIME 1 tablet BEDTIME (route: oral) Med Classific ation: Respirato ry Therapy Agents sertraline 25 mg tablet 2024-06 0 00:00: 00 Yes [id number] 4 tablet EVERY AM 4 tablet EVERY AM (route: oral) Med Classific ation: Central Nervous System Agents sumatriptan 100 mg tablet 2024-06 0 00:00: 00 Yes [id number] Per instruc tions NEEDED Per instructio ns NEEDED (route: oral) Med Classific ation: Central Nervous System Agents topiramate 100 mg tablet 2024-06 0 00:00: 00 Yes [id number] 1 tablet EVERY AM 1 tablet EVERY AM (route: oral) Med Classific ation: Central Nervous System Agents topiramate 100 mg tablet 2024-06 0 00:00: 00 Yes [id number] 1 tablet BEDTIME 1 tablet BEDTIME (route: [...] AWARENESS FOR SAFETY AND WILL NOTIFY CLINICAL CHAIR AND COUCH MAKER AND PHYSICIAN/PROVIDER WITH ANY CHANGE IN CONDITION. [code = SKILLED NURSE WILL MAINTAIN SITUATIONAL AWARENESS FOR SAFETY AND WILL NOTIFY CLINICAL CHAIR AND COUCH MAKER AND PHYSICIAN/PROVIDER WITH ANY CHANGE IN CONDITION.] [...] Date/Time Encounter Type Admission Type Attending [facility] Care Facility Care Department Encounter ID Discharge Date Discharge Status Discharge Condition Discharge Reason Percent Goals Met 2025-04-13 00:00:00 2025-06-11 00:00:00 Outpatient RECERTIFIC FRED MCARTHURHB [id number] 87.50
--- OUTSIDE RECORDS SUMMARY | 2025-06-10 19:00 | XMS_ITS | Clinical Summary ---
Author Organization Unknown Care Team Providers Care Armed Security Officer Name Role Phone RONI ALVARADO, MANDO Unavailable Unavailable RIZWANA AQUINO, FRED Unavailable Unavailable Payers Payer Name Policy Type Policy Number Effective Date Expira tion Date [facility] [place] [id number] MEDICAID [facility] [id number] MEDICARE - [facility] [id number] Problems Condition Name Condition Details Condition Category [...] 12-14 00:00: 00 04-02 23:59 :00 No [id number] 1 tablet DAILY 1 tablet DAILY (route: oral) Med Classific ation: Hematolog ical Agents atorvastati n 80 mg tablet 12-14 00:00: 00 04-02 23:59 :00 No [id number] 1 tablet BEDTIME 1 tablet BEDTIME (route: oral) Med Classific ation: Cardiovas cular Therapy Agents cetirizine 10 mg tablet 12-14 00:00: 00 04-02 23:59 :00 No [id number] 1 tablet DAILY 1 tablet DAILY (route: oral) Med Classific ation: Respirato ry Therapy Agents clonazepam 0.5 mg tablet 12-14 00:00: 00 04-02 23:59 :00 No [id number] PRN FOR ANXIETY/MINH TATiON 1 tablet 2 TIMES DAILY 1 tablet 2 TIMES DAILY (route: oral) Med Classific ation: Central Nervous System Agents docusate sodium 100 mg capsule 12-14 00:00: 00 04-02 23:59 :00 No [id number] 1 capsule BEDTIME 1 capsule BEDTIME (route: oral) Med Classific ation: Gastroint estinal Therapy Agents ezetimibe 10 mg tablet 12-14 00:00: 00 04-02 23:59 :00 No [id number] 1 tablet DAILY 1 tablet DAILY (route: oral) Med Classific ation: Cardiovas cular Therapy Agents fludrocorti sone 0.1 mg tablet 12-14 00:00: 00 04-02 23:59 :00 No [id number] 1 tablet DAILY 1 tablet DAILY (route: oral) Med Classific ation: Endocrine folic acid 800 mcg tablet 12-14 00:00: 00 04-02 23:59 :00 No [id number] 1 tablet DAILY 1 tablet DAILY (route: oral) Med Classific ation: Electroly te Balance-N utritiona l Products levothyroxi ne 25 mcg tablet 12-14 00:00: 00 04-02 23:59 :00 No [id number] 1 tablet DAILY 1 tablet DAILY (route: oral) Med Classific ation: Endocrine magnesium 400 mg (as magnesium oxide) tablet 12-14 00:00: 00 04-02 23:59 :00 No [id number] 1 tablet BEDTIME 1 tablet BEDTIME (route: oral) Med Classific ation: Electroly te Balance-N utritiona l Products melatonin 10 mg tablet 12-14 00:00: 00 04-02 23:59 :00 No [id number] 1 tablet BEDTIME 1 tablet BEDTIME (route: oral) Med Classific ation: Central Nervous System Agents montelukast 10 mg tablet 12-14 00:00: 00 04-02 23:59 :00 No [id number] 1 tablet BEDTIME 1 tablet BEDTIME (route: oral) Med Classific ation: Respirato ry Therapy Agents sertraline 25 mg tablet 12-14 00:00: 00 01-19 23:59 :00 No [id number] 2 tablet DAILY 2 tablet DAILY (route: oral) Med Classific ation: Central Nervous System Agents sumatriptan 100 mg tablet 12-14 00:00: 00 04-02 23:59 :00 No [id number] 1 tablet DAILY 1 tablet DAILY (route: oral) Med Classific ation: Central Nervous System Agents topiramate 100 mg tablet 12-14 00:00: 00 04-02 23:59 :00 No [id number] 1 tablet 2 TIMES DAILY 1 tablet 2 TIMES DAILY (route: oral) Med Classific ation: Central Nervous System Agents sertraline 25 mg tablet 8 00:00: 00 04-02 23:59 :00 No [id number] 3 tablet EVERY AM 3 tablet EVERY AM (route: oral) Med Classific ation: Central Nervous System Agents memantine 7 mg capsule sprinkle,ex tended release 24hr 02-12 00:00: 00 02-16 23:59 :00 No [id number] 1 capsule DAILY 1 capsule DAILY (route: oral) Med Classific ation: Cognitive Disorder Therapy fluticasone propionate 50 mcg/actuati on nasal spray,suspe nsion 02-16 00:00: 00 04-02 23:59 :00 No [id number] 1 spray DAILY 1 spray DAILY (route: nasal) Med Classific ation: Respirato ry Therapy Agents memantine 14 mg capsule sprinkle,ex tended release 24hr 02-16 00:00: 00 04-02 23:59 :00 No [id number] 1 capsule DAILY 1 capsule DAILY (route: oral) Med Classific ation: Cognitive Disorder Therapy cefpodoxime 200 mg tablet 03-09 00:00: 00 04-02 23:59 :00 No [id number] 1 tablet 2 TIMES DAILY 1 tablet 2 TIMES DAILY (route: oral) Med Classific ation: Anti-Infe ctive Agents aspirin 81 mg tablet 2024-06 00:00: 00 Yes [id number] 1 tablet EVERY AM 1 tablet EVERY AM (route: oral) Med Classific ation: Hematolog ical Agents atorvastati n 80 mg tablet 2024-06 00:00: 00 Yes [id number] 1 tablet BEDTIME 1 tablet BEDTIME (route: oral) Med Classific ation: Cardiovas cular Therapy Agents cetirizine 10 mg tablet 2024-06 00:00: 00 Yes [id number] 1 tablet EVERY AM 1 tablet EVERY AM (route: oral) Med Classific ation: Respirato ry Therapy Agents clonazepam 0.5 mg tablet 2024-06 00:00: 00 Yes [id number] 1 tablet EVERY AM 1 tablet EVERY AM (route: oral) Med Classific ation: Central Nervous System Agents clonazepam 0.5 mg tablet 2024-06 00:00: 00 Yes [id number] 1 tablet BEDTIME 1 tablet BEDTIME (route: oral) Med Classific ation: Central Nervous System Agents docusate sodium 100 mg capsule 2024-06 00:00: 00 Yes [id number] 1 capsule BEDTIME 1 capsule BEDTIME (route: oral) Med Classific ation: Gastroint estinal Therapy Agents ezetimibe 10 mg tablet 2024-06 00:00: 00 Yes [id number] 1 tablet BEDTIME 1 tablet BEDTIME (route: oral) Med Classific ation: Cardiovas cular Therapy Agents fludrocorti sone 0.1 mg tablet 2024-06 00:00: 00 Yes [id number] 1 tablet EVERY AM 1 tablet EVERY AM (route: oral) Med Classific ation: Endocrine fluticasone propionate 50 mcg/actuati on nasal spray,suspe nsion 2024-06 00:00: 00 Yes [id number] 1 spray EVERY AM 1 spray EVERY AM (route: nasal) Med Classific ation: Respirato ry Therapy Agents folic acid 800 mcg tablet 2024-06 00:00: 00 Yes [id number] 1 tablet EVERY AM 1 tablet EVERY AM (route: oral) Med Classific ation: Electroly te Balance-N utritiona l Products levothyroxi ne 25 mcg tablet 2024-06 00:00: 00 Yes [id number] 1 tablet EVERY AM 1 tablet EVERY AM (route: oral) Med Classific ation: Endocrine magnesium 400 mg (as magnesium oxide) tablet 2024-06 00:00: 00 Yes [id number] 1 tablet BEDTIME 1 tablet BEDTIME (route: oral) Med Classific ation: Electroly te Balance-N utritiona l Products melatonin 10 mg tablet 2024-06 00:00: 00 Yes [id number] 1 tablet BEDTIME 1 tablet BEDTIME (route: oral) Med Classific ation: Central Nervous System Agents memantine 14 mg capsule sprinkle,ex tended release 24hr 2024-06 00:00: 00 Yes [id number] 1 capsule EVERY AM 1 capsule EVERY AM (route: oral) Med Classific ation: Cognitive Disorder Therapy montelukast 10 mg tablet 2024-06 00:00: 00 Yes [id number] 1 tablet BEDTIME 1 tablet BEDTIME (route: oral) Med Classific ation: Respirato ry Therapy Agents sertraline 25 mg tablet 2024-06 0 00:00: 00 Yes [id number] 4 tablet EVERY AM 4 tablet EVERY AM (route: oral) Med Classific ation: Central Nervous System Agents sumatriptan 100 mg tablet 2024-06 0 00:00: 00 Yes [id number] Per instruc tions NEEDED Per instructio ns NEEDED (route: oral) Med Classific ation: Central Nervous System Agents topiramate 100 mg tablet 2024-06 0 00:00: 00 Yes [id number] 1 tablet EVERY AM 1 tablet EVERY AM (route: oral) Med Classific ation: Central Nervous System Agents topiramate 100 mg tablet 2024-06 0 00:00: 00 Yes [id number] 1 tablet BEDTIME 1 tablet BEDTIME (route: [...] AWARENESS FOR SAFETY AND WILL NOTIFY CLINICAL REPLANTING MACHINE OPERATOR AND PHYSICIAN/PROVIDER WITH ANY CHANGE IN CONDITION. [code = SKILLED NURSE WILL MAINTAIN SITUATIONAL AWARENESS FOR SAFETY AND WILL NOTIFY CLINICAL REPLANTING MACHINE OPERATOR AND PHYSICIAN/PROVIDER WITH ANY CHANGE IN CONDITION.] Goal 2025-04-08 Patient Goal - T O STAY OUT OF THE HOSPITAL. Goal 2025-02-11 Patient Goal - T O STAY OUT OF THE HOSPITAL. Goal Patient Goal - T O STAY OUT OF THE HOSPITAL. Goal Provider Goal - A PLAN OF CARE WILL BE ESTABLISHED THAT MEETS PATIENT'S INTERMEDIATE NEEDS AND INCLUDES PATIENT GOAL FOR HOME [...] End Date/Time Encounter Type Admission Type Attending [facility] Care Facility Care Department Encounter ID Discharge Date Discharge Status Discharge Condition Discharge Reason Percent Goals Met 2025-04-13 00:00:00 2025-06-11 00:00:00 Outpatient RECERTIFIC FRED MCARTHURHB [id number] 87.50
--- OUTSIDE RECORDS SUMMARY | 2025-06-10 19:00 | XMS_ITS | Clinical Summary ---
Author Organization Unknown Care Team Providers Care Fur Tinter Name Role Phone RONI ALVARADO, MANDO Unavailable Unavailable RIZWANA AQUINO, FRED Unavailable Unavailable Payers Payer Name Policy Type Policy Number Effective Date Expira tion Date [facility] [id number] MEDICAID [facility] [id number] MEDICARE - [facility] [id number] Problems Condition Name Condition Details Condition Category [...] 12-14 00:00: 00 04-02 23:59 :00 No [id number] 1 tablet DAILY 1 tablet DAILY (route: oral) Med Classific ation: Hematolog ical Agents atorvastati n 80 mg tablet 12-14 00:00: 00 04-02 23:59 :00 No [id number] 1 tablet BEDTIME 1 tablet BEDTIME (route: oral) Med Classific ation: Cardiovas cular Therapy Agents cetirizine 10 mg tablet 12-14 00:00: 00 04-02 23:59 :00 No [id number] 1 tablet DAILY 1 tablet DAILY (route: oral) Med Classific ation: Respirato ry Therapy Agents clonazepam 0.5 mg tablet 12-14 00:00: 00 04-02 23:59 :00 No [id number] PRN FOR ANXIETY/MINH TATiON 1 tablet 2 TIMES DAILY 1 tablet 2 TIMES DAILY (route: oral) Med Classific ation: Central Nervous System Agents docusate sodium 100 mg capsule 12-14 00:00: 00 04-02 23:59 :00 No [id number] 1 capsule BEDTIME 1 capsule BEDTIME (route: oral) Med Classific ation: Gastroint estinal Therapy Agents ezetimibe 10 mg tablet 12-14 00:00: 00 04-02 23:59 :00 No [id number] 1 tablet DAILY 1 tablet DAILY (route: oral) Med Classific ation: Cardiovas cular Therapy Agents fludrocorti sone 0.1 mg tablet 12-14 00:00: 00 04-02 23:59 :00 No [id number] 1 tablet DAILY 1 tablet DAILY (route: oral) Med Classific ation: Endocrine folic acid 800 mcg tablet 12-14 00:00: 00 04-02 23:59 :00 No [id number] 1 tablet DAILY 1 tablet DAILY (route: oral) Med Classific ation: Electroly te Balance-N utritiona l Products levothyroxi ne 25 mcg tablet 12-14 00:00: 00 04-02 23:59 :00 No [id number] 1 tablet DAILY 1 tablet DAILY (route: oral) Med Classific ation: Endocrine magnesium 400 mg (as magnesium oxide) tablet 12-14 00:00: 00 04-02 23:59 :00 No [id number] 1 tablet BEDTIME 1 tablet BEDTIME (route: oral) Med Classific ation: Electroly te Balance-N utritiona l Products melatonin 10 mg tablet 12-14 00:00: 00 04-02 23:59 :00 No [id number] 1 tablet BEDTIME 1 tablet BEDTIME (route: oral) Med Classific ation: Central Nervous System Agents montelukast 10 mg tablet 12-14 00:00: 00 04-02 23:59 :00 No [id number] 1 tablet BEDTIME 1 tablet BEDTIME (route: oral) Med Classific ation: Respirato ry Therapy Agents sertraline 25 mg tablet 12-14 00:00: 00 01-19 23:59 :00 No [id number] 2 tablet DAILY 2 tablet DAILY (route: oral) Med Classific ation: Central Nervous System Agents sumatriptan 100 mg tablet 12-14 00:00: 00 04-02 23:59 :00 No [id number] 1 tablet DAILY 1 tablet DAILY (route: oral) Med Classific ation: Central Nervous System Agents topiramate 100 mg tablet 12-14 00:00: 00 04-02 23:59 :00 No [id number] 1 tablet 2 TIMES DAILY 1 tablet 2 TIMES DAILY (route: oral) Med Classific ation: Central Nervous System Agents sertraline 25 mg tablet 8 00:00: 00 04-02 23:59 :00 No [id number] 3 tablet EVERY AM 3 tablet EVERY AM (route: oral) Med Classific ation: Central Nervous System Agents memantine 7 mg capsule sprinkle,ex tended release 24hr 02-12 00:00: 00 02-16 23:59 :00 No [id number] 1 capsule DAILY 1 capsule DAILY (route: oral) Med Classific ation: Cognitive Disorder Therapy fluticasone propionate 50 mcg/actuati on nasal spray,suspe nsion 02-16 00:00: 00 04-02 23:59 :00 No [id number] 1 spray DAILY 1 spray DAILY (route: nasal) Med Classific ation: Respirato ry Therapy Agents memantine 14 mg capsule sprinkle,ex tended release 24hr 02-16 00:00: 00 04-02 23:59 :00 No [id number] 1 capsule DAILY 1 capsule DAILY (route: oral) Med Classific ation: Cognitive Disorder Therapy cefpodoxime 200 mg tablet 03-09 00:00: 00 04-02 23:59 :00 No [id number] 1 tablet 2 TIMES DAILY 1 tablet 2 TIMES DAILY (route: oral) Med Classific ation: Anti-Infe ctive Agents aspirin 81 mg tablet 2024-06 00:00: 00 Yes [id number] 1 tablet EVERY AM 1 tablet EVERY AM (route: oral) Med Classific ation: Hematolog ical Agents atorvastati n 80 mg tablet 2024-06 00:00: 00 Yes [id number] 1 tablet BEDTIME 1 tablet BEDTIME (route: oral) Med Classific ation: Cardiovas cular Therapy Agents cetirizine 10 mg tablet 2024-06 00:00: 00 Yes [id number] 1 tablet EVERY AM 1 tablet EVERY AM (route: oral) Med Classific ation: Respirato ry Therapy Agents clonazepam 0.5 mg tablet 2024-06 00:00: 00 Yes [id number] 1 tablet EVERY AM 1 tablet EVERY AM (route: oral) Med Classific ation: Central Nervous System Agents clonazepam 0.5 mg tablet 2024-06 00:00: 00 Yes [id number] 1 tablet BEDTIME 1 tablet BEDTIME (route: oral) Med Classific ation: Central Nervous System Agents docusate sodium 100 mg capsule 2024-06 00:00: 00 Yes [id number] 1 capsule BEDTIME 1 capsule BEDTIME (route: oral) Med Classific ation: Gastroint estinal Therapy Agents ezetimibe 10 mg tablet 2024-06 00:00: 00 Yes [id number] 1 tablet BEDTIME 1 tablet BEDTIME (route: oral) Med Classific ation: Cardiovas cular Therapy Agents fludrocorti sone 0.1 mg tablet 2024-06 00:00: 00 Yes [id number] 1 tablet EVERY AM 1 tablet EVERY AM (route: oral) Med Classific ation: Endocrine fluticasone propionate 50 mcg/actuati on nasal spray,suspe nsion 2024-06 00:00: 00 Yes [id number] 1 spray EVERY AM 1 spray EVERY AM (route: nasal) Med Classific ation: Respirato ry Therapy Agents folic acid 800 mcg tablet 2024-06 00:00: 00 Yes [id number] 1 tablet EVERY AM 1 tablet EVERY AM (route: oral) Med Classific ation: Electroly te Balance-N utritiona l Products levothyroxi ne 25 mcg tablet 2024-06 00:00: 00 Yes [id number] 1 tablet EVERY AM 1 tablet EVERY AM (route: oral) Med Classific ation: Endocrine magnesium 400 mg (as magnesium oxide) tablet 2024-06 00:00: 00 Yes [id number] 1 tablet BEDTIME 1 tablet BEDTIME (route: oral) Med Classific ation: Electroly te Balance-N utritiona l Products melatonin 10 mg tablet 2024-06 00:00: 00 Yes [id number] 1 tablet BEDTIME 1 tablet BEDTIME (route: oral) Med Classific ation: Central Nervous System Agents memantine 14 mg capsule sprinkle,ex tended release 24hr 2024-06 00:00: 00 Yes [id number] 1 capsule EVERY AM 1 capsule EVERY AM (route: oral) Med Classific ation: Cognitive Disorder Therapy montelukast 10 mg tablet 2024-06 00:00: 00 Yes [id number] 1 tablet BEDTIME 1 tablet BEDTIME (route: oral) Med Classific ation: Respirato ry Therapy Agents sertraline 25 mg tablet 2024-06 0 00:00: 00 Yes [id number] 4 tablet EVERY AM 4 tablet EVERY AM (route: oral) Med Classific ation: Central Nervous System Agents sumatriptan 100 mg tablet 2024-06 0 00:00: 00 Yes [id number] Per instruc tions NEEDED Per instructio ns NEEDED (route: oral) Med Classific ation: Central Nervous System Agents topiramate 100 mg tablet 2024-06 0 00:00: 00 Yes [id number] 1 tablet EVERY AM 1 tablet EVERY AM (route: oral) Med Classific ation: Central Nervous System Agents topiramate 100 mg tablet 2024-06 0 00:00: 00 Yes [id number] 1 tablet BEDTIME 1 tablet BEDTIME (route: [...] FOR SAFETY AND WILL NOTIFY CLINICAL SENIOR SEARCH MARKETING ANALYST AND PHYSICIAN/PROVIDER WITH ANY CHANGE IN CONDITION. [code = SKILLED NURSE WILL MAINTAIN SITUATIONAL AWARENESS FOR SAFETY AND WILL NOTIFY CLINICAL SENIOR SEARCH MARKETING ANALYST AND PHYSICIAN/PROVIDER WITH ANY CHANGE IN CONDITION.] [...] End Date/Time Encounter Type Admission Type Attending [facility] Care Facility Care Department Encounter ID Discharge Date Discharge Status Discharge Condition Discharge Reason Percent Goals Met 2025-04-13 00:00:00 2025-06-11 00:00:00 Outpatient RECERTIFIC FRED MCARTHURHB [id number] 87.50
--- OUTSIDE RECORDS SUMMARY | 2025-06-10 19:00 | XMS_ITS | Clinical Summary ---
Author Organization Unknown Care Team Providers Care Ssis Architect Name Role Phone RONI ALVARADO, MANDO Unavailable Unavailable RIZWANA AQUINO, FRED Unavailable Unavailable Payers Payer Name Policy Type Policy Number Effective Date Expira tion Date [facility] [place] [id number] MEDICAID [facility] [id number] MEDICARE - [facility] [id number] Problems Condition Name Condition Details Condition Category [...] 12-14 00:00: 00 04-02 23:59 :00 No [id number] 1 tablet DAILY 1 tablet DAILY (route: oral) Med Classific ation: Hematolog ical Agents atorvastati n 80 mg tablet 12-14 00:00: 00 04-02 23:59 :00 No [id number] 1 tablet BEDTIME 1 tablet BEDTIME (route: oral) Med Classific ation: Cardiovas cular Therapy Agents cetirizine 10 mg tablet 12-14 00:00: 00 04-02 23:59 :00 No [id number] 1 tablet DAILY 1 tablet DAILY (route: oral) Med Classific ation: Respirato ry Therapy Agents clonazepam 0.5 mg tablet 12-14 00:00: 00 04-02 23:59 :00 No [id number] PRN FOR ANXIETY/MINH TATiON 1 tablet 2 TIMES DAILY 1 tablet 2 TIMES DAILY (route: oral) Med Classific ation: Central Nervous System Agents docusate sodium 100 mg capsule 12-14 00:00: 00 04-02 23:59 :00 No [id number] 1 capsule BEDTIME 1 capsule BEDTIME (route: oral) Med Classific ation: Gastroint estinal Therapy Agents ezetimibe 10 mg tablet 12-14 00:00: 00 04-02 23:59 :00 No [id number] 1 tablet DAILY 1 tablet DAILY (route: oral) Med Classific ation: Cardiovas cular Therapy Agents fludrocorti sone 0.1 mg tablet 12-14 00:00: 00 04-02 23:59 :00 No [id number] 1 tablet DAILY 1 tablet DAILY (route: oral) Med Classific ation: Endocrine folic acid 800 mcg tablet 12-14 00:00: 00 04-02 23:59 :00 No [id number] 1 tablet DAILY 1 tablet DAILY (route: oral) Med Classific ation: Electroly te Balance-N utritiona l Products levothyroxi ne 25 mcg tablet 12-14 00:00: 00 04-02 23:59 :00 No [id number] 1 tablet DAILY 1 tablet DAILY (route: oral) Med Classific ation: Endocrine magnesium 400 mg (as magnesium oxide) tablet 12-14 00:00: 00 04-02 23:59 :00 No [id number] 1 tablet BEDTIME 1 tablet BEDTIME (route: oral) Med Classific ation: Electroly te Balance-N utritiona l Products melatonin 10 mg tablet 12-14 00:00: 00 04-02 23:59 :00 No [id number] 1 tablet BEDTIME 1 tablet BEDTIME (route: oral) Med Classific ation: Central Nervous System Agents montelukast 10 mg tablet 12-14 00:00: 00 04-02 23:59 :00 No [id number] 1 tablet BEDTIME 1 tablet BEDTIME (route: oral) Med Classific ation: Respirato ry Therapy Agents sertraline 25 mg tablet 12-14 00:00: 00 01-19 23:59 :00 No [id number] 2 tablet DAILY 2 tablet DAILY (route: oral) Med Classific ation: Central Nervous System Agents sumatriptan 100 mg tablet 12-14 00:00: 00 04-02 23:59 :00 No [id number] 1 tablet DAILY 1 tablet DAILY (route: oral) Med Classific ation: Central Nervous System Agents topiramate 100 mg tablet 12-14 00:00: 00 04-02 23:59 :00 No [id number] 1 tablet 2 TIMES DAILY 1 tablet 2 TIMES DAILY (route: oral) Med Classific ation: Central Nervous System Agents sertraline 25 mg tablet 8 00:00: 00 04-02 23:59 :00 No [id number] 3 tablet EVERY AM 3 tablet EVERY AM (route: oral) Med Classific ation: Central Nervous System Agents memantine 7 mg capsule sprinkle,ex tended release 24hr 02-12 00:00: 00 02-16 23:59 :00 No [id number] 1 capsule DAILY 1 capsule DAILY (route: oral) Med Classific ation: Cognitive Disorder Therapy fluticasone propionate 50 mcg/actuati on nasal spray,suspe nsion 02-16 00:00: 00 04-02 23:59 :00 No [id number] 1 spray DAILY 1 spray DAILY (route: nasal) Med Classific ation: Respirato ry Therapy Agents memantine 14 mg capsule sprinkle,ex tended release 24hr 02-16 00:00: 00 04-02 23:59 :00 No [id number] 1 capsule DAILY 1 capsule DAILY (route: oral) Med Classific ation: Cognitive Disorder Therapy cefpodoxime 200 mg tablet 03-09 00:00: 00 04-02 23:59 :00 No [id number] 1 tablet 2 TIMES DAILY 1 tablet 2 TIMES DAILY (route: oral) Med Classific ation: Anti-Infe ctive Agents aspirin 81 mg tablet 2024-06 00:00: 00 Yes [id number] 1 tablet EVERY AM 1 tablet EVERY AM (route: oral) Med Classific ation: Hematolog ical Agents atorvastati n 80 mg tablet 2024-06 00:00: 00 Yes [id number] 1 tablet BEDTIME 1 tablet BEDTIME (route: oral) Med Classific ation: Cardiovas cular Therapy Agents cetirizine 10 mg tablet 2024-06 00:00: 00 Yes [id number] 1 tablet EVERY AM 1 tablet EVERY AM (route: oral) Med Classific ation: Respirato ry Therapy Agents clonazepam 0.5 mg tablet 2024-06 00:00: 00 Yes [id number] 1 tablet EVERY AM 1 tablet EVERY AM (route: oral) Med Classific ation: Central Nervous System Agents clonazepam 0.5 mg tablet 2024-06 00:00: 00 Yes [id number] 1 tablet BEDTIME 1 tablet BEDTIME (route: oral) Med Classific ation: Central Nervous System Agents docusate sodium 100 mg capsule 2024-06 00:00: 00 Yes [id number] 1 capsule BEDTIME 1 capsule BEDTIME (route: oral) Med Classific ation: Gastroint estinal Therapy Agents ezetimibe 10 mg tablet 2024-06 00:00: 00 Yes [id number] 1 tablet BEDTIME 1 tablet BEDTIME (route: oral) Med Classific ation: Cardiovas cular Therapy Agents fludrocorti sone 0.1 mg tablet 2024-06 00:00: 00 Yes [id number] 1 tablet EVERY AM 1 tablet EVERY AM (route: oral) Med Classific ation: Endocrine fluticasone propionate 50 mcg/actuati on nasal spray,suspe nsion 2024-06 00:00: 00 Yes [id number] 1 spray EVERY AM 1 spray EVERY AM (route: nasal) Med Classific ation: Respirato ry Therapy Agents folic acid 800 mcg tablet 2024-06 00:00: 00 Yes [id number] 1 tablet EVERY AM 1 tablet EVERY AM (route: oral) Med Classific ation: Electroly te Balance-N utritiona l Products levothyroxi ne 25 mcg tablet 2024-06 00:00: 00 Yes [id number] 1 tablet EVERY AM 1 tablet EVERY AM (route: oral) Med Classific ation: Endocrine magnesium 400 mg (as magnesium oxide) tablet 2024-06 00:00: 00 Yes [id number] 1 tablet BEDTIME 1 tablet BEDTIME (route: oral) Med Classific ation: Electroly te Balance-N utritiona l Products melatonin 10 mg tablet 2024-06 00:00: 00 Yes [id number] 1 tablet BEDTIME 1 tablet BEDTIME (route: oral) Med Classific ation: Central Nervous System Agents memantine 14 mg capsule sprinkle,ex tended release 24hr 2024-06 00:00: 00 Yes [id number] 1 capsule EVERY AM 1 capsule EVERY AM (route: oral) Med Classific ation: Cognitive Disorder Therapy montelukast 10 mg tablet 2024-06 00:00: 00 Yes [id number] 1 tablet BEDTIME 1 tablet BEDTIME (route: oral) Med Classific ation: Respirato ry Therapy Agents sertraline 25 mg tablet 2024-06 0 00:00: 00 Yes [id number] 4 tablet EVERY AM 4 tablet EVERY AM (route: oral) Med Classific ation: Central Nervous System Agents sumatriptan 100 mg tablet 2024-06 0 00:00: 00 Yes [id number] Per instruc tions NEEDED Per instructio ns NEEDED (route: oral) Med Classific ation: Central Nervous System Agents topiramate 100 mg tablet 2024-06 0 00:00: 00 Yes [id number] 1 tablet EVERY AM 1 tablet EVERY AM (route: oral) Med Classific ation: Central Nervous System Agents topiramate 100 mg tablet 2024-06 0 00:00: 00 Yes [id number] 1 tablet BEDTIME 1 tablet BEDTIME (route: [...] AWARENESS FOR SAFETY AND WILL NOTIFY CLINICAL HOME FURNISHINGS SALES REPRESENTATIVE AND PHYSICIAN/PROVIDER WITH ANY CHANGE IN CONDITION. [code = SKILLED NURSE WILL MAINTAIN SITUATIONAL AWARENESS FOR SAFETY AND WILL NOTIFY CLINICAL HOME FURNISHINGS SALES REPRESENTATIVE AND PHYSICIAN/PROVIDER WITH ANY CHANGE IN CONDITION.] [...] End Date/Time Encounter Type Admission Type Attending [facility] Care Facility Care Department Encounter ID Discharge Date Discharge Status Discharge Condition Discharge Reason Percent Goals Met 2025-04-13 00:00:00 2025-06-11 00:00:00 Outpatient RECERTIFIC FRED MCARTHURHB [id number] 87.50
--- OUTSIDE RECORDS SUMMARY | 2025-06-10 19:00 | XMS_ITS | Clinical Summary ---
Author Organization Unknown Care Team Providers Care Order Runner Name Role Phone RONI ALVARADO, MANDO Unavailable Unavailable RIZWANA AQUINO, FRDE Unavailable Unavailable Payers Payer Name Policy Type Policy Number Effective Date Expira tion Date [facility] [id number] MEDICAID [facility] [id number] MEDICARE - [facility] [id number] Problems Condition Name Condition Details Condition Category [...] 12-14 00:00: 00 04-02 23:59 :00 No [id number] 1 tablet DAILY 1 tablet DAILY (route: oral) Med Classific ation: Hematolog ical Agents atorvastati n 80 mg tablet 12-14 00:00: 00 04-02 23:59 :00 No [id number] 1 tablet BEDTIME 1 tablet BEDTIME (route: oral) Med Classific ation: Cardiovas cular Therapy Agents cetirizine 10 mg tablet 12-14 00:00: 00 04-02 23:59 :00 No [id number] 1 tablet DAILY 1 tablet DAILY (route: oral) Med Classific ation: Respirato ry Therapy Agents clonazepam 0.5 mg tablet 12-14 00:00: 00 04-02 23:59 :00 No [id number] PRN FOR ANXIETY/MINH TATiON 1 tablet 2 TIMES DAILY 1 tablet 2 TIMES DAILY (route: oral) Med Classific ation: Central Nervous System Agents docusate sodium 100 mg capsule 12-14 00:00: 00 04-02 23:59 :00 No [id number] 1 capsule BEDTIME 1 capsule BEDTIME (route: oral) Med Classific ation: Gastroint estinal Therapy Agents ezetimibe 10 mg tablet 12-14 00:00: 00 04-02 23:59 :00 No [id number] 1 tablet DAILY 1 tablet DAILY (route: oral) Med Classific ation: Cardiovas cular Therapy Agents fludrocorti sone 0.1 mg tablet 12-14 00:00: 00 04-02 23:59 :00 No [id number] 1 tablet DAILY 1 tablet DAILY (route: oral) Med Classific ation: Endocrine folic acid 800 mcg tablet 12-14 00:00: 00 04-02 23:59 :00 No [id number] 1 tablet DAILY 1 tablet DAILY (route: oral) Med Classific ation: Electroly te Balance-N utritiona l Products levothyroxi ne 25 mcg tablet 12-14 00:00: 00 04-02 23:59 :00 No [id number] 1 tablet DAILY 1 tablet DAILY (route: oral) Med Classific ation: Endocrine magnesium 400 mg (as magnesium oxide) tablet 12-14 00:00: 00 04-02 23:59 :00 No [id number] 1 tablet BEDTIME 1 tablet BEDTIME (route: oral) Med Classific ation: Electroly te Balance-N utritiona l Products melatonin 10 mg tablet 12-14 00:00: 00 04-02 23:59 :00 No [id number] 1 tablet BEDTIME 1 tablet BEDTIME (route: oral) Med Classific ation: Central Nervous System Agents montelukast 10 mg tablet 12-14 00:00: 00 04-02 23:59 :00 No [id number] 1 tablet BEDTIME 1 tablet BEDTIME (route: oral) Med Classific ation: Respirato ry Therapy Agents sertraline 25 mg tablet 12-14 00:00: 00 01-19 23:59 :00 No [id number] 2 tablet DAILY 2 tablet DAILY (route: oral) Med Classific ation: Central Nervous System Agents sumatriptan 100 mg tablet 12-14 00:00: 00 04-02 23:59 :00 No [id number] 1 tablet DAILY 1 tablet DAILY (route: oral) Med Classific ation: Central Nervous System Agents topiramate 100 mg tablet 12-14 00:00: 00 04-02 23:59 :00 No [id number] 1 tablet 2 TIMES DAILY 1 tablet 2 TIMES DAILY (route: oral) Med Classific ation: Central Nervous System Agents sertraline 25 mg tablet 8 00:00: 00 04-02 23:59 :00 No [id number] 3 tablet EVERY AM 3 tablet EVERY AM (route: oral) Med Classific ation: Central Nervous System Agents memantine 7 mg capsule sprinkle,ex tended release 24hr 02-12 00:00: 00 02-16 23:59 :00 No [id number] 1 capsule DAILY 1 capsule DAILY (route: oral) Med Classific ation: Cognitive Disorder Therapy fluticasone propionate 50 mcg/actuati on nasal spray,suspe nsion 02-16 00:00: 00 04-02 23:59 :00 No [id number] 1 spray DAILY 1 spray DAILY (route: nasal) Med Classific ation: Respirato ry Therapy Agents memantine 14 mg capsule sprinkle,ex tended release 24hr 02-16 00:00: 00 04-02 23:59 :00 No [id number] 1 capsule DAILY 1 capsule DAILY (route: oral) Med Classific ation: Cognitive Disorder Therapy cefpodoxime 200 mg tablet 03-09 00:00: 00 04-02 23:59 :00 No [id number] 1 tablet 2 TIMES DAILY 1 tablet 2 TIMES DAILY (route: oral) Med Classific ation: Anti-Infe ctive Agents aspirin 81 mg tablet 2024-06 00:00: 00 Yes [id number] 1 tablet EVERY AM 1 tablet EVERY AM (route: oral) Med Classific ation: Hematolog ical Agents atorvastati n 80 mg tablet 2024-06 00:00: 00 Yes [id number] 1 tablet BEDTIME 1 tablet BEDTIME (route: oral) Med Classific ation: Cardiovas cular Therapy Agents cetirizine 10 mg tablet 2024-06 00:00: 00 Yes [id number] 1 tablet EVERY AM 1 tablet EVERY AM (route: oral) Med Classific ation: Respirato ry Therapy Agents clonazepam 0.5 mg tablet 2024-06 00:00: 00 Yes [id number] 1 tablet EVERY AM 1 tablet EVERY AM (route: oral) Med Classific ation: Central Nervous System Agents clonazepam 0.5 mg tablet 2024-06 00:00: 00 Yes [id number] 1 tablet BEDTIME 1 tablet BEDTIME (route: oral) Med Classific ation: Central Nervous System Agents docusate sodium 100 mg capsule 2024-06 00:00: 00 Yes [id number] 1 capsule BEDTIME 1 capsule BEDTIME (route: oral) Med Classific ation: Gastroint estinal Therapy Agents ezetimibe 10 mg tablet 2024-06 00:00: 00 Yes [id number] 1 tablet BEDTIME 1 tablet BEDTIME (route: oral) Med Classific ation: Cardiovas cular Therapy Agents fludrocorti sone 0.1 mg tablet 2024-06 00:00: 00 Yes [id number] 1 tablet EVERY AM 1 tablet EVERY AM (route: oral) Med Classific ation: Endocrine fluticasone propionate 50 mcg/actuati on nasal spray,suspe nsion 2024-06 00:00: 00 Yes [id number] 1 spray EVERY AM 1 spray EVERY AM (route: nasal) Med Classific ation: Respirato ry Therapy Agents folic acid 800 mcg tablet 2024-06 00:00: 00 Yes [id number] 1 tablet EVERY AM 1 tablet EVERY AM (route: oral) Med Classific ation: Electroly te Balance-N utritiona l Products levothyroxi ne 25 mcg tablet 2024-06 00:00: 00 Yes [id number] 1 tablet EVERY AM 1 tablet EVERY AM (route: oral) Med Classific ation: Endocrine magnesium 400 mg (as magnesium oxide) tablet 2024-06 00:00: 00 Yes [id number] 1 tablet BEDTIME 1 tablet BEDTIME (route: oral) Med Classific ation: Electroly te Balance-N utritiona l Products melatonin 10 mg tablet 2024-06 00:00: 00 Yes [id number] 1 tablet BEDTIME 1 tablet BEDTIME (route: oral) Med Classific ation: Central Nervous System Agents memantine 14 mg capsule sprinkle,ex tended release 24hr 2024-06 00:00: 00 Yes [id number] 1 capsule EVERY AM 1 capsule EVERY AM (route: oral) Med Classific ation: Cognitive Disorder Therapy montelukast 10 mg tablet 2024-06 00:00: 00 Yes [id number] 1 tablet BEDTIME 1 tablet BEDTIME (route: oral) Med Classific ation: Respirato ry Therapy Agents sertraline 25 mg tablet 2024-06 0 00:00: 00 Yes [id number] 4 tablet EVERY AM 4 tablet EVERY AM (route: oral) Med Classific ation: Central Nervous System Agents sumatriptan 100 mg tablet 2024-06 0 00:00: 00 Yes [id number] Per instruc tions NEEDED Per instructio ns NEEDED (route: oral) Med Classific ation: Central Nervous System Agents topiramate 100 mg tablet 2024-06 0 00:00: 00 Yes [id number] 1 tablet EVERY AM 1 tablet EVERY AM (route: oral) Med Classific ation: Central Nervous System Agents topiramate 100 mg tablet 2024-06 0 00:00: 00 Yes [id number] 1 tablet BEDTIME 1 tablet BEDTIME (route: [...] AWARENESS FOR SAFETY AND WILL NOTIFY CLINICAL CHANNEL BUSINESS MANAGER AND PHYSICIAN/PROVIDER WITH ANY CHANGE IN CONDITION. [code = SKILLED NURSE WILL MAINTAIN SITUATIONAL AWARENESS FOR SAFETY AND WILL NOTIFY CLINICAL CHANNEL BUSINESS MANAGER AND PHYSICIAN/PROVIDER WITH ANY CHANGE IN [...] Date/Time Encounter Type Admission Type Attending [facility] Care Department Encounter ID Discharge Date Discharge Status Discharge Condition Discharge Reason Percent Goals Met 2025-04-13 00:00:00 2025-06-11 00:00:00 Outpatient RECERTIFIC FRED MCARTHURHB [id number]
== END 2025-04-27 14:08 | disposition home or self-care (01) ==
LOC: HO.LNP 14:07
PROVIDERS: PCP Nurse Practitioner Family; Visit Provider Physician Assistant Medical
DX: J06.9 Acute upper respiratory infection, unspecified (principal); R09.89 Other specified symptoms and signs involving the circulatory and respiratory systems; Z79.51 Long term (current) use of inhaled steroids; Z79.899 Other long term (current) drug therapy
CPT/HCPCS: 87637; 99212

== ENCOUNTER 2025-04-27 14:07 | Outpatient (AMB) | payer OTHER, SELFPAY ==
--- NOTE | 2025-04-27 14:13 | AM.OFFWIN_ITS ---
Intake Vital Signs 04/27/25 14:14 Height 5 ft 1 in Weight 119 lb BMI 22.5 BP 160/84 H Blood Pressure Location Lt brachial Position Sitting Pulse 77 Pulse Source Pulse Oximeter Temp 97.4 F Temp Source Oral Pulse Oximetry (%) 99 Oxygen Delivery Method Room Air Intake Visit Reasons: ep sore throat both ears clogged Intake Note: Patient presents c/o sore throat, headache, ear pain x2 days. Patient Tobacco Use Status: Never used Tobacco Allergies Penicillins (PENICILLINS) Allergy (Intermediate, Verified 04/27/25 14:17) HIVES carbamazepine (From Tegretol) Allergy (Mild, Verified 04/27/25 14:17) HIVES diflunisal (From Dolobid) Allergy (Mild, Verified 04/27/25 14:17) HIVES erythromycin base (From Edwin-Tab) Allergy (Mild, Verified 04/27/25 14:17) HIVES phenytoin (From Dilantin) Allergy (Mild, Verified 04/27/25 14:17) RASH,HIVES piroxicam (From Feldene) Allergy (Mild, Verified 04/27/25 14:17) HIVES sulfamethoxazole (From Bactrim) Allergy (Mild, Verified 04/27/25 14:17) HIVES trimethoprim (From Bactrim) Allergy (Mild, Verified 04/27/25 14:17) HIVES valproic acid (From Depakene) Allergy (Mild, Verified 04/27/25 14:17) HIVES Depakene Allergy (Unknown, Verified 04/27/25 14:17) Rash hydrochlorothiazide (HYDROCHLOROTHIAZIDE) Allergy (Unknown, Verified 04/27/25 14:17) rash lisinopril (LISINOPRIL) Allergy (Unknown, Verified 04/27/25 14:17) rash galcanezumab-gnlm (From Emgality Pen) Allergy (Verified 04/27/25 14:17) headaches codeine (Codeine) Adverse Reaction (Intermediate, Verified 04/27/25 14:17) NAUSEA & VOMITING rash doxycycline Adverse Reaction (Verified 04/27/25 14:17) Stomach Upset ENVIRONMENTAL Allergy (Intermediate, Uncoded 04/27/25 14:17) ASTHMA,LOSES VOICE TAPE,PLASTIC Allergy (Intermediate, Uncoded 04/27/25 14:17) RASH surgical tape Allergy (Unknown, Uncoded 04/27/25 14:17) unknown HPI HPI Comments History of Present Illness Details History - The patient is a 70-year-old female pr esenting with a sore throat, ear pain, and headache. - The sore throat and headache began tod ay, while the ear pain started the previous day. - The patient has a history of allergies and asthma, for which she takes medications including Cetirizine, Albuterol, Flonase, and Montelukast. - She reports that Flonase did not allev iate her symptoms today. - The patient received an RSV and flu va ccination recently. - She denies having a fever but experien alesia chills easily. - The patient has a mild cough and repor ts loose stools and black diarrhea, which may be related to a viral infection. - She denies sick contacts, smoking, tra prabhu, fever, chills, CP, SOB, abd pain, or n/v/d. Physical Exam General: Cooperative, healthy appearing, comfortable and no acute distress Orientation/consciousness: Patient oriented x3 Limitations: No limitations Head: Normal to inspection Ears: Hearing grossly normal bilaterally, external ears normal and TM's normal bilaterally Nose: Normal external nose present, normal nares present, and no nasal discharge present. Face and sinus: Sinuses nontender to palpation. Mouth: Normal oral and palatal mucosa present and moist mucous membranes noted. Throat: Tonsils normal. Uvula is midline. Posterior oropharynx with erythema and no exudates. Eyes: Appearance normal, both eyes and all related structures Neck: Normal visual inspection, full ROM. No lymphadenopathy noted. Respiratory: Clear to auscultation bilaterally. Normal respiratory effort, able to speak in complete sentences. No respiratory distress, not tachypneic, no tripod positioning and no use of accessory muscles. Cardiovascular: Regular rate and rhythm. Normal S1 and S2 Skin: No rashes or lesions noted Patient was informed and verbally consented to the use of an ambient scribe for clinic note documentation during this visit [facility] Medical History Osteopenia Conversion disorder with attacks or seizures, acute episode, with psychological stressor Falls Anesthesia complication Liver lesion Ingrown toenail Elevated liver enzymes Concussion with loss of consciousness SOB (shortness of breath) Pain of both earlobes Dizziness New onset headache Otitis externa of both ears Acute effusion of right ear Dermatitis Myalgia Headache REM sleep behavior disorder Convulsion disorder COVID-19 Pre-syncope Dyspnea Chest pain Pneumonia Osteoporosis Screening for osteoporosis CKD (chronic kidney disease) Dyslipidemia Hypothyroid Hyperlipemia Ataxic gait Seizures Asthma Depression Conversion disorder HTN (hypertension) Muscle weakness Hypothyroid Surgical History H/O colonoscopy History of right knee surgery History of lobectomy of thyroid History of arthroscopy of right knee History of ankle surgery History of arthroscopy of left knee History of hysterectomy Family History Father CVD (cardiovascular disease) Stomach ulcer Cardiac arrest H/O heart bypass surgery Mother History of heart attack CHF (congestive heart failure) Lung cancer Diabetes mellitus High cholesterol HTN (hypertension) Hypothyroidism Sister Lung cancer Substance use disorder Brother Colitis Sister No problems noted. Sister Obstetric pulmonary blood clot embolism, antepartum Paternal Aunt Mental health disorder Substance use disorder Maternal Grandmother Mental health disorder Family/Other Substance use disorder Social History Household Members: Family Household Members Other:: brother, 2 cats Housing: House Are you a primary eye care professional to a significant other at home: No Do you presently have visiting nurse or other home services: No Alcohol intake: never Patient Tobacco Use Status: Never used Tobacco e-Cigarette/Vaping Use: Never Used Second Hand Smoke Exposure: No service: No Current occupational status: disabled Cognitive needs: No Hearing needs: No Vision needs: No Review of Systems Const All systems reviewed & are unremarkable except as noted in HPI and below Physical Exam Vital Signs: Last Vital Signs Temp 97.4 F 04/27/25 14:14 Pulse 77 04/27/25 14:14 BP 160/84 H 04/27/25 14:14 Pulse Ox 99 04/27/25 14:14 Oxygen Delivery Method Room Air 04/27/25 14:14 BMI result Body Mass Index 22.5 Assessment & Plan Assessment & Plan (1) URI (upper respiratory infection): Code(s): J06.9 - Acute upper respiratory infection, unspecified Qualifiers: URI type: unspecified viral URI Qualified Code(s): J06.9 - Acute upper respiratory infection, unspecified Plan Most likely URI vs covid vs RSV vs flu vs allergic rhinitis rapid is negative plan - Plan to test for COVID-19, influenza, and RSV to rule out these infections. - Prescribed cough medicine to alleviate symptoms. - Continue current allergy medications including Cetirizine, Albuterol, Flonase, and Montelukast. - Continue current asthma management with prescribed medications. - will call with the results - follow up with PCP Orders: Orders SARS-CoV2/FLU/RSV Today R09.89 - Other specified symptoms and signs involving the circulatory and respiratory systems Medications: New benzonatate 100 mg PO bid-tid PRN 21 caps 0RF Cough 7 days Coding Level of Care Code Est Pt Level 3 (88633) Diagnoses Viral upper respiratory tract infection J06.9 URI type: unspecified viral URI
[2025-04-27 14:14] VITALS: BP 160/84; PULSE 77; TEMP 36.3; O2SAT 99; BMI 22.5
--- OUTSIDE RECORDS SUMMARY | 2025-04-28 03:52 | XMS_ITS | Clinical Summary ---
Author Organization [facility] Address [address] [place] [phone] Phone Care Team Providers Care Punch Card Operator Name Role Phone Case Duff SUBSTANCE ABUSE SPECIALIST Primary Care Provider + Allergies Active Allergy [...] patient's age to complete this topic IPV VACCINES Aged Out No longer eligi ble based on patient's age to complete this topic MENINGOCOCCAL VACCINES (ACWY) Aged Out No longer eligible based on patient's age to complete this topic MENINGOCOCCAL VACCINES (B) Aged Out N o longer eligible based on patient's age to complete this topic Medical Devices Not on file Insurance [facility]IC[facility] REPLACEMENT [place] [id number] MEDICARE PART A & B O MEDICARE REPLACEMENT Member Subscriber Plan / Payer (Ef fective 2019-Present) Name:GarcíaluigiSarahyLeida Relation to Subscriber:Self Name:Pura Leida Payer ID:[id number] (NAIC) Group ID:[id number] Type:Medicare [address] [facility] MEDICARE PART A & B Member Subscriber Plan / Payer (Ef fective 2019-Present) Name:Sarahy Neves Member ID:[id number] Relation to Subscriber:Self Name:Sarahy Neves Subscriber ID:[id number] Payer ID:[id number] Group ID:Not on file Type:Medicare Address: [employer] [address] MEDICARE REPLACEMENT MEDICARE PART A & [place] [address] [address] MEDICARE REPLACEMENT ER[place] [id number] MEDICARE PART A & B Member Subscriber Plan / Payer (Ef fective 2019-Present) Name:Sarahy Neves Member ID:[id number] Relation to Subscriber:Self Name:Sarahy Neves Subscriber ID:[id number] Payer ID:[id number] Group ID:Not on file Type:Medicare Address: [employer] [address] [place] [address] [place] [address] MEDICARE REPLACEMENT MEDICARE PART A & B [employer] MEDICARE REPLACEMENT MEDICARE PART A & B [facility] MEDIC[facility] REPLACEMENT MEDICARE PART A & B [facility] MEDICARE REPLACEMENT MEDICARE PART A & B [facility] SCO MEDICARE REPLACEMENT Advance Directives For more information, please contact: [phone] (9AM - 5PM Mag/[facility], Sunday-Sunday) Documents on File Type Date Recorded Patient Hearing Healthcare Practitioner Expl anation Healthcare Proxy 02/13/2019 1:15 PM Healthcare Agents on File Name Relationship Healthcare Agent Relationship Communication Ariel Neves Brother .Primary Health Care Agent (Proxy form on file) Cierra Mojica Sister Alternate Health care Agent (Proxy form on file) Care Teams Punch Card Operator Relationship Specialty Start Date End Date Case Duff NP [facility] [place] [address] PCP - General Family Medicine 02/07/19 Additional Source Comments The information contained in this document represents components of the legal health record. It is not the complete legal health record.[facility]
--- OUTSIDE RECORDS SUMMARY | 2025-04-28 03:52 | XMS_ITS | Clinical Summary ---
Author Organization [facility] ity Address [address] [place] [address] Care Team Providers Care Transitional Care Nurse Name Role Phone Unavailable Primary Care Provider [...]
--- OUTSIDE RECORDS SUMMARY | 2025-06-10 19:00 | XMS_ITS | Clinical Summary ---
Author Organization Unknown Care Team Providers Care [place] Name Role Phone RONI ALVARADO, MANDO Unavailable Unavailable RIZWANA AQUINO, FRED Unavailable Unavailable Payers Payer Name Policy Type Policy Number Effective Date Expira tion Date [facility] [place] [id number] MEDICAID [facility] [id number] MEDICARE - [facility] [id number] Problems Condition Name Condition Details Condition Category [...] 12-14 00:00: 00 04-02 23:59 :00 No [id number] 1 tablet DAILY 1 tablet DAILY (route: oral) Med Classific ation: Hematolog ical Agents atorvastati n 80 mg tablet 12-14 00:00: 00 04-02 23:59 :00 No [id number] 1 tablet BEDTIME 1 tablet BEDTIME (route: oral) Med Classific ation: Cardiovas cular Therapy Agents cetirizine 10 mg tablet 12-14 00:00: 00 04-02 23:59 :00 No [id number] 1 tablet DAILY 1 tablet DAILY (route: oral) Med Classific ation: Respirato ry Therapy Agents clonazepam 0.5 mg tablet 12-14 00:00: 00 04-02 23:59 :00 No [id number] PRN FOR ANXIETY/MINH TATiON 1 tablet 2 TIMES DAILY 1 tablet 2 TIMES DAILY (route: oral) Med Classific ation: Central Nervous System Agents docusate sodium 100 mg capsule 12-14 00:00: 00 04-02 23:59 :00 No [id number] 1 capsule BEDTIME 1 capsule BEDTIME (route: oral) Med Classific ation: Gastroint estinal Therapy Agents ezetimibe 10 mg tablet 12-14 00:00: 00 04-02 23:59 :00 No [id number] 1 tablet DAILY 1 tablet DAILY (route: oral) Med Classific ation: Cardiovas cular Therapy Agents fludrocorti sone 0.1 mg tablet 12-14 00:00: 00 04-02 23:59 :00 No [id number] 1 tablet DAILY 1 tablet DAILY (route: oral) Med Classific ation: Endocrine folic acid 800 mcg tablet 12-14 00:00: 00 04-02 23:59 :00 No [id number] 1 tablet DAILY 1 tablet DAILY (route: oral) Med Classific ation: Electroly te Balance-N utritiona l Products levothyroxi ne 25 mcg tablet 12-14 00:00: 00 04-02 23:59 :00 No [id number] 1 tablet DAILY 1 tablet DAILY (route: oral) Med Classific ation: Endocrine magnesium 400 mg (as magnesium oxide) tablet 12-14 00:00: 00 04-02 23:59 :00 No [id number] 1 tablet BEDTIME 1 tablet BEDTIME (route: oral) Med Classific ation: Electroly te Balance-N utritiona l Products melatonin 10 mg tablet 12-14 00:00: 00 04-02 23:59 :00 No [id number] 1 tablet BEDTIME 1 tablet BEDTIME (route: oral) Med Classific ation: Central Nervous System Agents montelukast 10 mg tablet 12-14 00:00: 00 04-02 23:59 :00 No [id number] 1 tablet BEDTIME 1 tablet BEDTIME (route: oral) Med Classific ation: Respirato ry Therapy Agents sertraline 25 mg tablet 12-14 00:00: 00 01-19 23:59 :00 No [id number] 2 tablet DAILY 2 tablet DAILY (route: oral) Med Classific ation: Central Nervous System Agents sumatriptan 100 mg tablet 12-14 00:00: 00 04-02 23:59 :00 No [id number] 1 tablet DAILY 1 tablet DAILY (route: oral) Med Classific ation: Central Nervous System Agents topiramate 100 mg tablet 12-14 00:00: 00 04-02 23:59 :00 No [id number] 1 tablet 2 TIMES DAILY 1 tablet 2 TIMES DAILY (route: oral) Med Classific ation: Central Nervous System Agents sertraline 25 mg tablet 8 00:00: 00 04-02 23:59 :00 No [id number] 3 tablet EVERY AM 3 tablet EVERY AM (route: oral) Med Classific ation: Central Nervous System Agents memantine 7 mg capsule sprinkle,ex tended release 24hr 02-12 00:00: 00 02-16 23:59 :00 No [id number] 1 capsule DAILY 1 capsule DAILY (route: oral) Med Classific ation: Cognitive Disorder Therapy fluticasone propionate 50 mcg/actuati on nasal spray,suspe nsion 02-16 00:00: 00 04-02 23:59 :00 No [id number] 1 spray DAILY 1 spray DAILY (route: nasal) Med Classific ation: Respirato ry Therapy Agents memantine 14 mg capsule sprinkle,ex tended release 24hr 02-16 00:00: 00 04-02 23:59 :00 No [id number] 1 capsule DAILY 1 capsule DAILY (route: oral) Med Classific ation: Cognitive Disorder Therapy cefpodoxime 200 mg tablet 03-09 00:00: 00 04-02 23:59 :00 No [id number] 1 tablet 2 TIMES DAILY 1 tablet 2 TIMES DAILY (route: oral) Med Classific ation: Anti-Infe ctive Agents aspirin 81 mg tablet 2024-06 00:00: 00 Yes [id number] 1 tablet EVERY AM 1 tablet EVERY AM (route: oral) Med Classific ation: Hematolog ical Agents atorvastati n 80 mg tablet 2024-06 00:00: 00 Yes [id number] 1 tablet BEDTIME 1 tablet BEDTIME (route: oral) Med Classific ation: Cardiovas cular Therapy Agents cetirizine 10 mg tablet 2024-06 00:00: 00 Yes [id number] 1 tablet EVERY AM 1 tablet EVERY AM (route: oral) Med Classific ation: Respirato ry Therapy Agents clonazepam 0.5 mg tablet 2024-06 00:00: 00 Yes [id number] 1 tablet EVERY AM 1 tablet EVERY AM (route: oral) Med Classific ation: Central Nervous System Agents clonazepam 0.5 mg tablet 2024-06 00:00: 00 Yes [id number] 1 tablet BEDTIME 1 tablet BEDTIME (route: oral) Med Classific ation: Central Nervous System Agents docusate sodium 100 mg capsule 2024-06 00:00: 00 Yes [id number] 1 capsule BEDTIME 1 capsule BEDTIME (route: oral) Med Classific ation: Gastroint estinal Therapy Agents ezetimibe 10 mg tablet 2024-06 00:00: 00 Yes [id number] 1 tablet BEDTIME 1 tablet BEDTIME (route: oral) Med Classific ation: Cardiovas cular Therapy Agents fludrocorti sone 0.1 mg tablet 2024-06 00:00: 00 Yes [id number] 1 tablet EVERY AM 1 tablet EVERY AM (route: oral) Med Classific ation: Endocrine fluticasone propionate 50 mcg/actuati on nasal spray,suspe nsion 2024-06 00:00: 00 Yes [id number] 1 spray EVERY AM 1 spray EVERY AM (route: nasal) Med Classific ation: Respirato ry Therapy Agents folic acid 800 mcg tablet 2024-06 00:00: 00 Yes [id number] 1 tablet EVERY AM 1 tablet EVERY AM (route: oral) Med Classific ation: Electroly te Balance-N utritiona l Products levothyroxi ne 25 mcg tablet 2024-06 00:00: 00 Yes [id number] 1 tablet EVERY AM 1 tablet EVERY AM (route: oral) Med Classific ation: Endocrine magnesium 400 mg (as magnesium oxide) tablet 2024-06 00:00: 00 Yes [id number] 1 tablet BEDTIME 1 tablet BEDTIME (route: oral) Med Classific ation: Electroly te Balance-N utritiona l Products melatonin 10 mg tablet 2024-06 00:00: 00 Yes [id number] 1 tablet BEDTIME 1 tablet BEDTIME (route: oral) Med Classific ation: Central Nervous System Agents memantine 14 mg capsule sprinkle,ex tended release 24hr 2024-06 00:00: 00 Yes [id number] 1 capsule EVERY AM 1 capsule EVERY AM (route: oral) Med Classific ation: Cognitive Disorder Therapy montelukast 10 mg tablet 2024-06 00:00: 00 Yes [id number] 1 tablet BEDTIME 1 tablet BEDTIME (route: oral) Med Classific ation: Respirato ry Therapy Agents sertraline 25 mg tablet 2024-06 0 00:00: 00 Yes [id number] 4 tablet EVERY AM 4 tablet EVERY AM (route: oral) Med Classific ation: Central Nervous System Agents sumatriptan 100 mg tablet 2024-06 0 00:00: 00 Yes [id number] Per instruc tions NEEDED Per instructio ns NEEDED (route: oral) Med Classific ation: Central Nervous System Agents topiramate 100 mg tablet 2024-06 0 00:00: 00 Yes [id number] 1 tablet EVERY AM 1 tablet EVERY AM (route: oral) Med Classific ation: Central Nervous System Agents topiramate 100 mg tablet 2024-06 0 00:00: 00 Yes [id number] 1 tablet BEDTIME 1 tablet BEDTIME (route: [...] AWARENESS FOR SAFETY AND WILL NOTIFY CLINICAL HEAD LOADER AND PHYSICIAN/PROVIDER WITH ANY CHANGE IN CONDITION. [code = SKILLED NURSE WILL MAINTAIN SITUATIONAL AWARENESS FOR SAFETY AND WILL NOTIFY CLINICAL HEAD LOADER AND PHYSICIAN/PROVIDER WITH ANY CHANGE IN CONDITION.] [...] Date/Time Encounter Type Admission Type Attending [facility] Care Facility Care Department Encounter ID Discharge Date Discharge Status Discharge Condition Discharge Reason Percent Goals Met 2025-04-13 00:00:00 2025-06-11 00:00:00 Outpatient RECERTIFIC FRED MCARTHURHB [id number] 87.50
== END 2025-04-27 15:03 | disposition home or self-care (01) ==
PROVIDERS: PCP Nurse Practitioner Family; Visit Provider Physician Assistant Medical
DX: J06.9 Acute upper respiratory infection, unspecified (principal)

== ENCOUNTER 2025-04-30 10:48 | Outpatient (AMB) | payer OTHER, SELFPAY ==
[2025-04-30 10:51] VITALS: BP 130/82; PULSE 83; TEMP 36.4; O2SAT 98; BMI 22.5
--- NOTE | 2025-04-30 10:51 | AM.OFFWIN_ITS ---
Intake Vital Signs 04/30/25 10:51 Height 5 ft 1 in Weight 119 lb BMI 22.5 BP 130/82 Blood Pressure Location Lt brachial Position Sitting Pulse 83 Pulse Source Pulse Oximeter Temp 97.6 F Temp Source Oral Pulse Oximetry (%) 98 Oxygen Delivery Method Room Air Intake Visit Reasons: EP congested dizziness headache. Intake Note: Patient presents c/o dizziness, headache, sinus congestion. Patient states she fell backwards twice at home. It was an unwitnessed fall & she did hit her head but unsure if she passed out. Patient was seen on 04/27 for similar symptoms (dizziness is new) and resp panel was negative. Patient Tobacco Use Status: Never used Tobacco Allergies Penicillins (PENICILLINS) Allergy (Intermediate, Verified 04/30/25 11:53) HIVES carbamazepine (From Tegretol) Allergy (Mild, Verified 04/30/25 11:53) HIVES diflunisal (From Dolobid) Allergy (Mild, Verified 04/30/25 11:53) HIVES erythromycin base (From Edwin-Tab) Allergy (Mild, Verified 04/30/25 11:53) HIVES phenytoin (From Dilantin) Allergy (Mild, Verified 04/30/25 11:53) RASH,HIVES piroxicam (From Feldene) Allergy (Mild, Verified 04/30/25 11:53) HIVES sulfamethoxazole (From Bactrim) Allergy (Mild, Verified 04/30/25 11:53) HIVES trimethoprim (From Bactrim) Allergy (Mild, Verified 04/30/25 11:53) HIVES valproic acid (From Depakene) Allergy (Mild, Verified 04/30/25 11:53) HIVES Depakene Allergy (Unknown, Verified 04/30/25 11:53) Rash hydrochlorothiazide (HYDROCHLOROTHIAZIDE) Allergy (Unknown, Verified 04/30/25 11:53) rash lisinopril (LISINOPRIL) Allergy (Unknown, Verified 04/30/25 11:53) rash galcanezumab-gnlm (From Emgality Pen) Allergy (Verified 04/30/25 11:53) headaches codeine (Codeine) Adverse Reaction (Intermediate, Verified 04/30/25 11:53) NAUSEA & VOMITING rash doxycycline Adverse Reaction (Verified 04/30/25 11:53) Stomach Upset ENVIRONMENTAL Allergy (Intermediate, Uncoded 04/30/25 10:56) ASTHMA,LOSES VOICE TAPE,PLASTIC Allergy (Intermediate, Uncoded 04/30/25 10:56) RASH surgical tape Allergy (Unknown, Uncoded 04/30/25 10:56) unknown HPI HPI Comments History of Present Illness Details Patient presents with multiple complaints: dizziness, lightheadedness, headache, sinus congestion, generalized body weakness, sinus pressure, cough, chest tightness, and pressure. Reports two unwitnessed falls at home today, hitting her head on one occasion; unsure if she lost consciousness. Seen on 04/27 for similar symptoms; diagnosed with viral respiratory infection and advised symptomatic management. Patient requests antibiotics, believing she has a sinus infection. Patient refuses ED referral due to long wait times. [facility] Medical History (Updated 04/30/25 @ 11:30 by Thu Salazar NP) Lightheadedness Osteopenia Conversion disorder with attacks or seizures, acute episode, with psychological stressor Falls Anesthesia complication Liver lesion Ingrown toenail Elevated liver enzymes Concussion with loss of consciousness SOB (shortness of breath) Pain of both earlobes Dizziness New onset headache Otitis externa of both ears Acute effusion of right ear Dermatitis Myalgia Headache REM sleep behavior disorder Convulsion disorder COVID-19 Pre-syncope Dyspnea Chest pain Pneumonia Osteoporosis Screening for osteoporosis CKD (chronic kidney disease) Dyslipidemia Hypothyroid Hyperlipemia Ataxic gait Seizures Asthma Depression Conversion disorder HTN (hypertension) Muscle weakness Hypothyroid Surgical History H/O colonoscopy History of right knee surgery History of lobectomy of thyroid History of arthroscopy of right knee History of ankle surgery History of arthroscopy of left knee History of hysterectomy Family History Father CVD (cardiovascular disease) Stomach ulcer Cardiac arrest H/O heart bypass surgery Mother History of heart attack CHF (congestive heart failure) Lung cancer Diabetes mellitus High cholesterol HTN (hypertension) Hypothyroidism Sister Lung cancer Substance use disorder Brother Colitis Sister No problems noted. Sister Obstetric pulmonary blood clot embolism, antepartum Paternal Aunt Mental health disorder Substance use disorder Maternal Grandmother Mental health disorder Family/Other Substance use disorder Social History Household Members: Family Household Members Other:: brother, 2 cats Housing: House Are you a primary primary care nurse practitioner to a significant other at home: No Do you presently have visiting nurse or other home services: No Alcohol intake: never Patient Tobacco Use Status: Never used Tobacco e-Cigarette/Vaping Use: Never Used Second Hand Smoke Exposure: No Do you have a plan to hurt others: No Plan service: No Current occupational status: disabled Cognitive needs: No Hearing needs: No Vision needs: No Review of Systems Const All systems reviewed & are unremarkable except as noted in HPI and below Physical Exam Vital Signs: Last Vital Signs Temp 97.6 F 04/30/25 10:51 Pulse 83 04/30/25 10:51 BP 130/82 04/30/25 10:51 Pulse Ox 98 04/30/25 10:51 Oxygen Delivery Method Room Air 04/30/25 10:51 BMI result Body Mass Index 22.5 Const Other: Lethargic, drowsy, but alert and oriented. General: ill appearing and lethargic Nutritional Appearance: thin Orientation/consciousness: patient oriented x3 and lethargic HEENT Head: Yes normocephalic Ears: external ears normal and TM abnormal with fluid behind the TM bilateral General nose exam: Abnormal mucous membranes and turbinates present erythematous Face and sinus: Yes sinuses nontender Mouth: moist mucous membranes Throat: Yes uvula midline Resp Effort & Inspection: normal respiratory effort Cardio Rate: regular rate Neuro Other: No focal neurological deficits documented. No acute distress noted beyond drowsiness. General: patient oriented x3 and moves all extremities Gait exam (Neuro): Staggering gait present and Assisted gait required (One assist) Psych Speech and movement: Normal speech and movement present Assessment & Plan Assessment & Plan (1) Lightheadedness: Code(s): R42 - Dizziness and giddiness Plan: Recurrent dizziness/lightheadedness and falls ? concerning for possible syncope, dehydration, arrhythmia, or other acute neurological/cardiac causes. Viral upper respiratory infection ? previously diagnosed; current symptoms may be persistent or evolving. Strongly recommend ED evaluation for head injury and recurrent falls. Explained risks of delayed assessment. Symptomatic treatment for URI: hydration, rest, analgesics as appropriate. Avoid antibiotics at this time; bacterial sinus infection not confirmed. Educated patient on indications for antibiotics. Coding Level of Care Code Est Pt Level 4 (26226) Diagnoses Lightheadedness R42 Time Spent (min) 20
--- OUTSIDE RECORDS SUMMARY | 2025-04-30 16:17 | XMS_ITS | Clinical Summary ---
Author Organization [facility] ity Address [address] [place] [address] Care Team Providers Care Cloth Grader Name Role Phone Unavailable Primary Care Provider [...]
--- OUTSIDE RECORDS SUMMARY | 2025-04-30 16:17 | XMS_ITS | Data Portability ---
Author Organization [employer], [facility] Address [address] [place] [id number] Care Team Providers Care Cam Milling Machine Operator Name Role Phone HIM CCA [...] Assessment and Plan as documented by the Tile Designer. Patient given the opportunity to ask questions. Advised needs close follow-up with PCP however-if not improving she may call for another visit with us and if develops CP/severe SOB/turning blue/uncontrolle d n/v/d or black/bloody emesis or stool/ AMS/ syncope/ hi fever to call 911- she verbalized understanding of instructions to me [email or web address] Not available 02/16/2023 13:22:13 06/29/2023 06/29/2023 I have reviewed and agree with the Assessment and Plan as documented by the Tile Designer. I provided real-time medical direction via phone for this encounter, and was available for additional phone based assistance as needed. I have reviewed and agree with the Assessment and Plan as documented by the Tile Designer. I provided real-time medical direction via phone [...] 2022 023 [email or web address] 0 Main - [facility], [address] [place] [address], [phone] 3 15:01:01 rapid flu (A+B) 2022 023 [email or web address] 0 Main - [facility], [address] [place] [address], [phone] 3 15:01:01 rapid SARS CoV 2 Ag, QL IA, respiratory specimen 2021 022 [email or web address] 5 Main - [facility], [address] [place] [address], [phone] 2 16:18:02 rapid flu (A+B) 2021 022 [email or web address] 5 Main - [facility], [address] [place] [address], [phone] 2 16:18:02 rapid strep group A, throat 2021 022 [email or web address] 5 Main - [facility], [address] [place] [address], [phone] 2 16:18:02 Referral None recorded. Procedures None recorded. Surgeries None recorded. Imaging None recorded. Medication Orders albuterol sulfate 2.5 mg/3 mL (0.083 %) solution for nebulizatio n 2022 023 [email or web address] 0 Not available 3 15:04:06 albuterol sulfate 2.5 mg/3 mL (0.083 %) solution for nebulizatio n 2022 023 SAADIA [id number], [address], [place], [phone], 3 15:04:13 prednisone 20 mg tablet 2022 023 [email or web address] 0 Not available 3 15:04:06 prednisone 20 mg tablet 2022 023 KINDE [id number], [address], [place], [phone], 3 15:04:14 Patient TargetsNo targets recorded. Patient InstructionsNo instructions recorded. Reason for Referral None Reported. Results Created Date Observation Date Name Description Value Unit Range Abnormal Flag Note LastModifiedBy Organization Detail LastModifiedTime 04/27/20 22 04/27/2022 rapid strep group A, throa t Strep negati ve Not Available Main - [facility] ed [address] [place] [address], [phone] 04/27/2022 16:17:34 04/27/20 22 04/27/2022 rapid flu (A+B) Flu negati ve Not Available Main - [facility] ed [address] [place] [address], [phone] 04/27/2022 16:17:30 04/27/20 22 04/27/2022 rapid SARS CoV 2 Ag, QL IA, respi rator y speci men rapid SARS CoV 2 Ag, QL IA, respiratory specimen negati ve Not Available [facility] - [facility] ed [address] [place] [address], [phone] 04/27/2022 16:17:26 02/16/20 23 02/15/2023 rapid flu (A+B) Flu negati ve Not Available Main - [facility] ed [address] [place] [address], [phone] 02/15/2023 15:00:42 02/16/20 23 02/15/2023 rapid SARS CoV 2 Ag, QL IA, respi rator y speci men rapid SARS CoV 2 Ag, QL IA, respiratory specimen negati ve Not Available [facility] - [facility] ed [address] [place] [address], [phone] 02/15/2023 15:00:34 Result Notes None recorded. Medical Equipment None Reported. Allergies Allergen ID Allergen Name Allergen Category Reaction Reaction Severity Criticality Documentation Date Start Date Code Code System Note Provider Name and Address Organization Details Recorded Time 3232 Depakene medicatio n Not available Not available Not available 02/16/2023 5 RxNorm Chasity Mark MD [address] [place] [address],[address], [place], [address], [employer] [place] [employer] 3 13:18:24 3233 Dilantin medicatio n Not available Not available Not available 02/16/2023 0 RxNorm Chasity Mark MD [address] [place] [address],[address], [place], [address], [employer], [employer] 13:18:32 3234 Tegretol medicatio n Not available Not available Not available 02/16/2023 9 RxNorm Chasity Mark MD [address] [place] [address],[address], [place], [address], [employer] - [employer], [employer] 13:18:53 3235 erythromy akhil medicatio n Not available Not available Not available 02/16/2023 4053 RxNorm and ilosi ne Chasity Mark MD [address] [place] [address],[address], [place], [address], [employer], [employer] 13:19:12 3236 Feldene medicatio n Not available Not available Not available 02/16/202319718 8 RxNorm Chasity Mark MD [address] [place] [address],[address], [place], [address], [employer], [employer] 13:19:27 3237 Dolobid medicatio n Not available Not available Not available 02/16/202375273 6 RxNorm Chasity Mark MD [address] [place] [address],[address], [place], [address], [employer], [employer] 13:19:35 3238 Substance with sulfonami de structure and antibacte rial mechanism of action (substanc e) medicatio n Not available Not available Not available 02/16/2023 72855 8003 SNOMED Chasity Mark MD [address] [place] [address],[address], [place], [address] [place] [address], [employer] 3 13:19:43 3239 Product containin g penicilli n (product) medicatio n Not available Not available Not available 02/16/2023 42310 8001 SNOMED Not Available [facility] - [employer] 4 03:34:14 3240 codeine medicatio n Not available Not available Not available 02/16/2023 2670 RxNorm Chasity Mark MD [address] [place] [address],[address], [place], [address], [employer] 3 13:20:02 3241 lisinopri l medicatio n Not available Not available Not available 02/16/2023 87686 RxNorm She was on lisin opril /hydr ochlo rothi azide and does not know which moiet y she had the react ion to Chasity Mark MD [address] [place] [address],[address], [place], [address] [place] [address], [employer] 3 13:20:49 3242 adhesive tape environme nt,medica tion Not available Not available Not available 02/16/2023 Chasity Mark MD [address] [place] [address],[address], [place], [address] [place] [address] 0, [employer] 3 13:21:07 7004 Bactrim medicatio n Not available Not available Not available 04/08/2024 56380 9 RxNorm Not Available [facility] 03:34:14 Medications [...] t Available Vitals Date Recorded Oxygen saturation Body weight Body temperature Heart rate Body height Respiratory rate Systolic And Diastolic Provider Name and Address Organization Details Last Updated DateTime 4 98 % 88610.0 4 g 98.8 [degF] 78 /min 152.4 cm 18 /min 139/77 mm[Hg] Not Available [facility] - [facility] 4 11:54:32 Date Recorded Body temperature Oxygen saturation Respiratory rate Heart rate Systolic And Diastolic Provider Name and Address Organization Details Last Updated DateTime 4 97.2 [degF] 96 % 16 /min 88 /min 127/75 mm[Hg] Not Available [facility] - [employer] 4 13:32:36 Date Recorded Respiratory rate Heart rate Body temperature Oxygen saturation Systolic And Diastolic Provider Name and Address Organization Details Last Updated DateTime 3 18 /min 62 /min 97.3 [degF] 99 % 158/72 mm[Hg] Not Available [facility] - [employer] 3 14:53:01 Date Recorded Body temperature Oxygen saturation Heart rate Respiratory rate Heart rate Oxygen saturation Body temperature Respiratory rate Systolic And Diastolic Systolic And Diastolic Provider Name and Address Organization Details Last Updated DateTime 2 97.9 [degF] 96 % 77 /min 18 /min 77 /min 96 % 97.9 [degF] 18 /min 135/84 [...] Note [id number] Ferny Harrison MD Main - [address] [address] 04/27/2022 11:06:08 05/02/2022 09:06:31 Cough 93815427 R05.9 [id number] Chasity Mark MD [facility] - [address] [address] 02/15/2023 14:52:47 02/15/2023 23:29:56 Viral upper respiratory tract infection [id number] J06.9 Advised to increase p.o. hydration. rest [...] Advised to discuss further with her PCP [id number] Pa Garcia MD Main - [address] [address] 06/29/2023 11:10:17 07/21/2023 13:44:47 Low back pain [id number] M54.50 [id number] Real Mojica MD Main - [facility] [address] [place] [address] 10/07/2023 13:32:33 10/07/2023 17:22:10 COVID-19 [id number] U07.1 This 68-year-ol d female with COPD was diagnosed with COVID-19 earlier this week and was treated with Paxlovid. [facility]. She has a nebulizer [...] Dugan Member ID Guarantor Name 02/15/2023 1 [facility] - DOS PRIOR TO 2022 - DUAL ELIGIBLE (MEDICARE REPLACEMENT/ADV ANTAGE - HMO) Sarahy Neves [id number] Sarahy Neves 10/07/2023 1 [facility] - DOS ON OR AFTER 2022 - DUAL ELIGIBLE - [facility] AND ONE CARE (MEDICARE REPLACEMENT/ADV ANTAGE - HMO) Sarahy Neves [id number] Sarahy Neves Notes Date Note Type Note Provider Name and Address Organization Details Recorded Time 04/27/2022 text/html HPI: Mbr transferred to [facility] from [facility]. Mbr reports not feeling well since 04/23/22. 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 Mbr speaking full clear sentences with this fha underwriter during call, no signs of SOB, wheezing [...] ..................... ..................... ..................... ..................... ..................... ..................... ............... Tile Designer Note: Pt presents awake and alert c/o sinus/right ear pressure, congestion, non productive cough, dyspnea with exertion, and fatigue x4 days. Pt denies f/n/v/d, cp, and dizziness. LS: clear/equal bilaterally. Covid, flu, strep neg. C contacted. Pt educated on supportive care and when to go to the ED. ..................... ..................... ..................... ..................... ..................... ..................... ............... Disposition: Fulfilled Ferny Harrison MD [address] [place] [address],[address], [place], [address], [employer] 04/27/2022 16:18:15 02/15/2023 text/html ROS as noted [...] file confirmed. FRANC can be reached at [phone]. ..................... ..................... ..................... ..................... ..................... ..................... ............... CRC Nursing Assessment: Comments: SOB that started this morning. History of asthma. Taking prescribed inhalers as needed. Used inhaler x1 today. + cough, non-productive x2 days. Voice sounds hoarse. Runny nose. No known fevers. Denies body aches, chills, or sore throat. ..................... ..................... ..................... ..................... ..................... ..................... ............... Tile Designer Note From Liban Jacob: PT complains of [...] melena or hematochezia Chasity Mark MD [address] [facility],[address], [place], [address], [employer] [employer] JONATHAN 02/16/2023 13:25:30 06/29/2023 text/html HPI: Member [...] Rojo): Comments: HPI was reviewed by this fha underwriter - No further information needed at this time. Waqas AQUINO ..................... ..................... ..................... ..................... ..................... ..................... ............... Tile Designer Note From Stacie Han: Sent to a [...] test: neg; 12 lead ECG: uploaded to [employer]. BP:139/77, P:78, RR:18, SpO2:98% RA, T:98.8; Head: sinus tenderness; Throat: erythema noted, no edema or exudate; Chest: bilateral chest tenderness; Lung sounds: clear bilaterally; Abdomen: soft, non-tender, no distention; Back: no tenderness; Extremities: unremarkable; Skin: pink, warm, dry; [facility] consulted and will request earlier follow up appt with PCP. [facility] orders Ketorolac 15mg IM. Ketorolac 15mg IM administered without incident. Red flags discussed. Pt has no further questions. ..................... ..................... ..................... ..................... ..................... ..................... ............... Disposition: Fulfilled Pa Garcia MD [address] [place] [address],[address], [place], [address], JONATHAN GRANT 07/20/2023 08:46:37 10/07/2023 text/html ROS as noted in the HPI HPI: mbr tested positive for covid on Sunday was prescribed paxlovid, states feeling worse with complaints of increased SOB/N/fever/chills/po or po intake, feeling dizzy lightheaded, and weak. requesting [facility] visit for evaluation Protocol Used: Cough - Acute Productive Protocol-Based Disposition: Consider MISTY Moe Community clinician, MD/PIGMENT PUSHER triage, PCP, or Urgent Care Visit within [...] needed to process visit -MILES Mclaughlin MD [address] [place] [address],[address], [place], [address], [facility] [facility] [employer] 10/07/2023 13:37:29 OBGyn Episode No OBEpisode recorded.
--- OUTSIDE RECORDS SUMMARY | 2025-04-30 16:17 | XMS_ITS | Clinical Summary ---
Author Organization [facility] Address [address] [place] [phone] Phone Care Team Providers Care Microbiological Lab Technician Name Role Phone Case Duff STOCK UNLOADER Primary Care Provider + Allergies Active Allergy [...] Insurance MEDICARE PART A & B [facility] MEDICARE REPLACEMENT MEDICARE PART A & B [facility] MEDICARE REPLACEMENT REBA [place] [id number] MEDICARE PART A & B [facility] MEDICARE REPLACEMENT REBA [place] [id number] MEDICARE PART A & B O MEDICARE REPLACEMENT [facility] MEDICARE PART A & B [facility] MEDICARE REPLACEMENT MEDICARE PART A & B MEDICARE REPLACEMENT MEDICARE PART A & [place] [address] [address] [place] [address] MEDICARE REPLACEMENT MEDICARE PART A & B [facility] MEDICARE REPLACEMENT MEDICARE PART A & B [facility] MEDICARE REPLACEMENT Advance Directives For more information, please contact: [phone] (9AM - 5PM [facility], Sunday-Sunday) Documents on File Type Date Recorded Patient Upper Marker Expl anation Healthcare Proxy 02/13/2019 1:15 PM Healthcare Agents on File Name Relationship Healthcare Agent Relationship Communication Ariel Neves Brother .Primary Health Care Agent (Proxy form on file) Cierra Mojica Sister Alternate Health care Agent (Proxy form on file) Care Teams Microbiological Lab Technician Relationship Specialty Start Date End Date Case Duff NP [facility] [place] [address] PCP - General Family Medicine 02/07/19 Additional Source Comments The information contained in this document represents components of the legal health record. It is not the complete legal health record.[facility]
== END 2025-04-30 11:31 | disposition home or self-care (01) ==
PROVIDERS: PCP Nurse Practitioner Family; Visit Provider Nurse Practitioner Family
DX: R42 Dizziness and giddiness (principal)

== ENCOUNTER 2025-04-30 11:46 | Emergency (ER) | payer OTHER, SELFPAY ==
--- NOTE | ~2025-04-30 | CT_ITS ---
EXAMINATION: CT ANGIOGRAM HEAD AND NECK CLINICAL INFORMATION: Fall, ataxic gait, right pronator drift. COMPARISON: 12/08/2024. TECHNIQUE: Noncontrast axial imaging of the head was performed. This was followed by test bolus sequences and head and neck intravenous bolus administration 70 mL of Omnipaque 350. Helical imaging was performed in the axial plane from the aortic arch to the skull vertex. The data was processed at the glass technologist's workstation for generation of MIP sequences. Angled MIPs and volume rendered reformatted images were also generated at an offline 3D workstation. Stenoses are assessed in accordance with NASCET criteria unless otherwise indicated. This CT examination was performed using dose optimization techniques as appropriate, variously including the following: *Automated exposure control *Adjustment of mA and/or kV according to patient size (this includes techniques or standardized protocols for targeted exams where dose is matched to indication/reason for exam; i.e. extremities or head) *Use of iterative reconstruction technique FINDINGS: NONCONTRAST HEAD CT: There is no evidence of intracranial hemorrhage or extra-axial fluid collection. There is no mass effect, or edema. No CT evidence of acute territorial infarct. Ventricles, sulci, and cisterns are normal in size and configuration for patient age. No hydrocephalus. No midline shift. No significant white matter abnormalities. Empty sella noted. Globes and orbital contents image normally. No extracranial soft tissue abnormalities. The paranasal sinuses, mastoid air cells, and tympanic cavities are normally aerated. No suspicious bony abnormalities. NECK CTA: -AORTIC ARCH: Normal in caliber. Mild atheromatous calcification. Three-vessel branching pattern. -GREAT VESSEL ORIGINS: Widely patent. No stenosis. -RIGHT COMMON CAROTID ARTERY: Normal in course and caliber to the level of the bifurcation. -CERVICAL RIGHT INTERNAL CAROTID ARTERY: Mild calcific atherosclerotic disease of the carotid bulb and proximal internal carotid artery without flow-limiting stenosis. -LEFT COMMON CAROTID ARTERY: Normal in course and caliber to the level of the bifurcation. -CERVICAL LEFT INTERNAL CAROTID ARTERY: Mild calcific atherosclerotic disease of the carotid bulb and proximal internal carotid artery without flow-limiting stenosis. -CERVICAL RIGHT VERTEBRAL ARTERY: Codominant. Normal origin. Normal in course and caliber into the skull base. -CERVICAL LEFT VERTEBRAL ARTERY: Codominant. Normal origin. Normal in course and caliber into the skull base. OTHER, SOFT TISSUES: -No lymphadenopathy or mass. No abnormal fluid collection or soft tissue swelling. -There has been a left thyroidectomy. -Imaged superior mediastinal structures normal. -Imaged lung apices clear. CTA OF THE BRAIN: -INTRACRANIAL INTERNAL CAROTID ARTERIES: Calcific atherosclerotic disease of the intracranial internal carotid arteries without occlusion or flow-limiting stenosis. -RIGHT ANTERIOR CEREBRAL ARTERY: Normal A1 segment. Normal arborization of the distal segments. -LEFT ANTERIOR CEREBRAL ARTERY: Normal A1 segment. Normal arborization of the distal segments. -ANTERIOR COMMUNICATING ARTERY: Normal. -RIGHT MIDDLE CEREBRAL ARTERY: Normal M1 segment of the MCA without focal stenosis or occlusion. Normal bifurcation. Normal arborization of the distal segments. -LEFT MIDDLE CEREBRAL ARTERY: Normal M1 segment of the MCA without focal stenosis or occlusion. Normal bifurcation. Normal arborization of the distal segments. -RIGHT VERTEBRAL ARTERY V4: Normal in course and caliber. Normal PICA branch. -LEFT VERTEBRAL ARTERY V4: Normal in course and caliber. Normal PICA branch. -BASILAR ARTERY: Normal without focal stenosis or occlusion. Normal appearance of the proximal superior cerebellar arteries. Normal basilar tip. -RIGHT POSTERIOR CEREBRAL ARTERY: Normal P1 segment. Normal opacification of the distal APPLICATION SYSTEMS ARCHITECT segments. -LEFT POSTERIOR CEREBRAL ARTERY: The P1 segment is diminutive. Partial origin of the left APPLICATION SYSTEMS ARCHITECT with robust opacification of the posterior communicating artery. Normal opacification of the distal APPLICATION SYSTEMS ARCHITECT segments. -POSTERIOR COMMUNICATING ARTERIES: The left as above. The right is small but present. Normal opacification of the superior sagittal, straight, transverse, and sigmoid sinuses. No venous thrombosis. No space-occupying hemorrhage or definite evolving infarct. CT/CT angio head neck IMPRESSION: NONCONTRAST HEAD CT: 1. No intracranial hemorrhage or mass effect. No CT evidence of acute territorial infarct. CTA NECK: 1. No evidence of significant stenosis, occlusion, dissection, or aneurysm of the major cervical arterial vasculature. 2. Left thyroidectomy. CTA HEAD: 1. No evidence of significant stenosis, occlusion, dissection, or aneurysm of the major intracranial arterial vasculature. 2. Major cortical and dural venous sinuses are patent. Electronically signed by: Guille Orosco MD 04/30/2025 05:16 PM [facility] [place]
[2025-04-30 11:48] VITALS: BP 184/78; PULSE 74; RESP 18; TEMP 36.3; O2SAT 100; BMI 22.8
--- NOTE | 2025-04-30 11:56 | ED.GENADULT ---
HPI - General Adult General Chief complaint: General Medical Stated complaint: dehydration? Time Seen by Provider: 04/30/25 13:58 Source: patient and RN notes reviewed Mode of arrival: ambulatory Limitations: no limitations History of Present Illness ED Provider: Sue Gamez PA-C HPI narrative: This is a 70-year-old female, with a past medical history of chronic antalgic gait, functional neurologic disorder, migraines, hypertension, hyperlipidemia, depression, hypothyroidism, CKD, seizures, conversion disorder, who presents emergency department on recommendations from her primary care physician's office due to concerns of dehydration . Patient reports that over the last 5 days she has felt as though she has had facial pressure, headache, and a mild, dry cough. She was seen at an urgent care where she was prescribed a cough medication, unsure of name, which she did not take as the side effect of this medication is dizziness, which patient chronically has and did not want to take a medication that will make her chronic dizziness worse. She states that she also fell twice today due to her chronic antalgic gait and struck her head without loss of consciousness. She states that she falls often due to her gait. Reports that she has always had gait problems since she was a child. She states that her gait that she has is no different than what she has had in the past. She reports that she is diagnosed with conversion disorder which she is trying to better understand and believes that this often times can make her walking symptoms worse. She lives with her brother at home. She reports numerous LTC/STR programs with PT which she reports as of rercent she completed PT 1 month ago. She states that her only complaint is facial pressure and a cough. She denies any severe headache, dizziness, double vision, blurred vision, chest pain, shortness of breath, abdominal pain, nausea, vomiting or diarrhea. No other complaints or concerns at this time. complaint: Cough, facial pressure Onset (ago): day(s) Radiation: non-radiation Relieving factors: none Exacerbating factors: none Associated symptoms: cough Treatments prior to arrival: none Related Data Home Medications ?Medication ?Instructions ?Recorded ?Confirmed aspirin 81 mg tablet,delayed 81 mg PO DAILY 07/05/20 04/30/25 release (Adult Low Dose Aspirin) atorvastatin 80 mg tablet 80 mg PO BEDTIME 12/08/24 04/30/25 docusate sodium 100 mg capsule 100 mg PO BEDTIME 12/08/24 04/30/25 melatonin 10 mg tablet 10 mg PO BEDTIME 12/08/24 04/30/25 sertraline 25 mg tablet 100 mg PO DAILY 03/26/25 04/30/25 Previous Rx's ?Medication ?Instructions ?Recorded albuterol sulfate 2.5 mg/3 mL 2.5 mg (3 mL) inhalation QID PRN 02/09/22 (0.083 %) solution for nebulization shortness of breath or wheezing 90 days #180 mL [facility] #1 ea 10/30/22 albuterol sulfate 90 mcg/actuation 2 puff PO Q6H PRN for wheezing 04/14/24 aerosol inhaler #6.7 grams folic acid 800 mcg tablet 0.8 mg PO DAILY #90 tabs 09/11/24 fluticasone propionate 50 1 spray intranasal DAILY 90 days 10/18/24 mcg/actuation nasal #48 grams spray,suspension cholecalciferol (vitamin D3) 50 50 mcg PO DAILY 90 days #90 caps 11/14/24 mcg (2,000 unit) capsule magnesium oxide 400 mg (241.3 mg 400 mg PO BEDTIME diarrhea 90 days 12/24/24 magnesium) tablet #90 tabs meclizine 25 mg tablet 25 mg PO DAILY PRN dizziness #20 12/25/24 tabs clonazepam 0.5 mg tablet 0.5 mg PO BID anxiety/agitation 30 01/15/25 days #60 tabs fluticasone 250 mcg-salmeterol 50 1 ea PO BID #180 ea 02/12/25 mcg/dose blistr powdr for inhalation (Wix[facility] Inhub) levothyroxine 25 mcg tablet 25 mcg PO DAILY #90 tabs 02/12/25 riboflavin (vitamin B2) 400 mg 400 mg PO DAILY 90 days #90 tabs 02/15/25 tablet sumatriptan succinate 100 mg tablet 100 mg PO Q2H PRN Migraine 02/20/25 Headache 30 days #12 tabs montelukast 10 mg tablet 10 mg PO DAILY #90 tabs 02/23/25 topiramate 100 mg tablet 100 mg PO BID 90 days #180 tabs 02/24/25 ezetimibe 10 mg tablet 10 mg PO DAILY #90 tabs 03/27/25 memantine 28 mg capsule 28 mg PO DAILY 30 days #30 ea 10/29/25 sprinkle,extended release 24hr fludrocortisone 0.1 mg tablet 0.1 mg PO DAILY for blood pressure 04/22/25 90 days #90 tabs Allergies Allergy/AdvReac Type Severity Reaction Status Date / Time Penicillins (PENICILLINS) Allergy Intermediate HIVES Verified 04/30/25 11:53 carbamazepine (From Tegretol) Allergy Mild HIVES Verified 04/30/25 11:53 diflunisal (From Dolobid) Allergy Mild HIVES Verified 04/30/25 11:53 erythromycin base (From Allergy Mild HIVES Verified 04/30/25 11:53 Edwin-Tab) phenytoin (From Dilantin) Allergy Mild RASH,HIVES Verified 04/30/25 11:53 piroxicam (From Feldene) Allergy Mild HIVES Verified 04/30/25 11:53 sulfamethoxazole (From Allergy Mild HIVES Verified 04/30/25 11:53 Bactrim) trimethoprim (From Bactrim) Allergy Mild HIVES Verified 04/30/25 11:53 valproic acid (From Depakene) Allergy Mild HIVES Verified 04/30/25 11:53 Depakene Allergy Unknown Rash Verified 04/30/25 11:53 hydrochlorothiazide Allergy Unknown rash Verified 04/30/25 11:53 (HYDROCHLOROTHIAZIDE) lisinopril (LISINOPRIL) Allergy Unknown rash Verified 04/30/25 11:53 galcanezumab-gnlm (From Allergy headaches Verified 04/30/25 11:53 Emgality Pen) codeine (Codeine) AdvReac Intermediate NAUSEA & Verified 04/30/25 11:53 VOMITING rash doxycycline AdvReac Stomach Verified 04/30/25 11:53 Upset ENVIRONMENTAL Allergy Intermediate ASTHMA,LOSES Uncoded 04/30/25 10:56 VOICE TAPE,PLASTIC Allergy Intermediate RASH Uncoded 04/30/25 10:56 surgical tape Allergy Unknown unknown Uncoded 04/30/25 10:56 Review of Systems Review of Systems: Constitutional : No Fever, No Chills ENT/Mouth : No sore throat, No Rhinorrhea Eyes: No Eye Pain, No Swelling, No Redness Cardiovascular : No Chest Pain, No SOB Respiratory : + Cough, No Sputum Gastrointestinal : No Nausea, No Vomiting, No Diarrhea, No abdominal Pain Genitourinary : No Dysuria, No Hematuria Musculoskeletal : No joint pain, No Myalgias, No Joint Swelling Skin : No Skin Lesions Neuro : No Weakness, No Numbness, No Headache All other systems reviewed and are negative Yes all other systems are reviewed and are negative Constitutional: Constitutional: Reports as per HPI Neurologic: Reports Abnormal speech present [facility] Past Medical History Medical History Lightheadedness Osteopenia Conversion disorder with attacks or seizures, acute episode, with psychological stressor Falls Anesthesia complication Liver lesion Ingrown toenail Elevated liver enzymes Concussion with loss of consciousness SOB (shortness of breath) Pain of both earlobes Dizziness New onset headache Otitis externa of both ears Acute effusion of right ear Dermatitis Myalgia Headache REM sleep behavior disorder Convulsion disorder COVID-19 Pre-syncope Dyspnea Chest pain Pneumonia Osteoporosis Screening for osteoporosis CKD (chronic kidney disease) Dyslipidemia Hypothyroid Hyperlipemia Ataxic gait Seizures Asthma Depression Conversion disorder HTN (hypertension) Muscle weakness Hypothyroid Surgical History H/O colonoscopy History of right knee surgery History of lobectomy of thyroid History of arthroscopy of right knee History of ankle surgery History of arthroscopy of left knee History of hysterectomy Family History Family History Father CVD (cardiovascular disease) Stomach ulcer Cardiac arrest H/O heart bypass surgery Mother History of heart attack CHF (congestive heart failure) Lung cancer Diabetes mellitus High cholesterol HTN (hypertension) Hypothyroidism Sister Lung cancer Substance use disorder Brother Colitis Sister No problems noted. Sister Obstetric pulmonary blood clot embolism, antepartum Paternal Aunt Mental health disorder Substance use disorder Maternal Grandmother Mental health disorder Family/Other Substance use disorder Social History Social History Household Members: Family Household Members Other:: brother, 2 cats Housing: House Are you a primary child adolescent care to a significant other at home: No Do you presently have visiting nurse or other home services: No Alcohol intake: never Patient Tobacco Use Status: Never used Tobacco e-Cigarette/Vaping Use: Never Used Second Hand Smoke Exposure: No service: No Current occupational status: disabled Cognitive needs: No Hearing needs: No Vision needs: No Physical Exam ED Vital Signs: Vital Signs - 24 hr 04/30/25 11:48 04/30/25 14:26 04/30/25 16:59 Temperature 97.3 F 97.5 F Pulse Rate 74 94 68 Respiratory Rate 18 16 Blood Pressure 184/78 H 175/80 H 184/85 H Pulse Oximetry 100 96 Oxygen Delivery Method Room Air Room Air 04/30/25 17:00 04/30/25 17:01 04/30/25 20:08 Temperature 97.8 F Pulse Rate 67 75 71 Respiratory Rate 14 Blood Pressure 174/83 H 179/92 H 157/72 H Pulse Oximetry 98 Oxygen Delivery Method Room Air 05/01/25 01:44 05/01/25 06:23 Temperature 97.0 F 98.3 F Pulse Rate 68 76 Respiratory Rate 16 18 Blood Pressure 150/76 H 176/78 H Pulse Oximetry 96 97 Oxygen Delivery Method Room Air Room Air BMI result Body Mass Index 22.8 Const General: cooperative, comfortable and no acute distress Orientation/consciousness: patient oriented x3 Limitations: no limitations HENMT Head: Yes normal to inspection, Yes normocephalic and Yes atraumatic Ears: hearing grossly normal bilaterally General nose exam: Normal external nose present Face and sinus: Yes normal facial exam Mouth: Normal oral and palatal mucosa present, oropharynx normal and moist mucous membranes Throat: Yes posterior oropharynx normal Eyes General: appearance normal, both eyes and all related structures Eyelids: Yes eyelids normal Conjunctivae: conjunctivae normal Sclerae: sclerae normal Pupils: Equal, round and reactive pupils present EOM: EOMs intact bilaterally Neck Neck: Yes normal visual inspection, Yes full ROM and Yes no lymphadenopathy Lymphatic: no lymphadenopathy noted Chest Chest palpation & inspection: normal inspection of the chest Resp Effort & Inspection: normal respiratory effort and able to speak in complete sentences Auscultation: clear to auscultation bilaterally, no crackles, no rales, no rhonchi and no wheezes Cardio Rate: regular rate Rhythm: regular rhythm Heart sounds: S1 normal heart sound present and S2 normal heart sound present GI Inspection: Yes normal to inspection Skin General skin exam: no rashes or lesions noted Trauma: no lacerations or abrasions Wounds: no wounds Neuro General: patient oriented x3 and moves all extremities Cranial nerves: Yes CN's II-XII intact bilaterally and Yes Equal, round and reactive pupils present Cognition (Neuro): normal cognition Speech: Abnormal speech present Gait exam (Neuro): Ataxic gait present Motor exam (neuro): 5/5 motor strength present throughout, Pronator motor function not present and no tremor noted Coordination: [id number] test normal and hmtm-ch-[id number] test normal Pupils: Normal pupillary reactivity/response: bilateral Extrem General: Yes normal to inspection Right upper extremity: normal to inspection Left upper extremity: normal to inspection Right lower extremity: normal to inspection Left lower extremity: normal to inspection NIH Stroke Scale Internal: Initial- Upon Arrival Level of Consciousness: Alert Level of Consciousness Questions: Answers both questions correctly Level of Consciousness Commands: Performs both tasks correctly Best Gaze: Normal Visual: No visual loss Facial Palsy: Normal Motor Arm (Right): No drift Motor Arm (Left): No drift Motor Leg (Right): No drift Motor Leg (Left): No drift Limb Ataxia: Absent Sensory: Normal Best Language: No aphasia Dysarthia: Normal Extinction and Inattention: No abnormality Score: 0 Course Course Course Narrative: RME: 70-year-old female presents to the ED for fall dizziness and headache. Patient fell twice today hit her head. Patient has usually had abnormal gait at baseline. Patient informed she will need head CT scan but refused imaging. EKG labs ordered Reevaluation(s) Reevaluation #1: Time: 09:45 Date: 05/01/25 Provider: Nigel Pettit PA-C patient and physician observation for case management needs. Patient to discharge home with resumption of [facility] and will transport home with sister. Will continue to monitor as we await transportation home. Time: 09:45 Medications Administered Discontinued Medications Generic Name Dose Route Start Last Admin Trade Name Freq PRN Reason Stop Dose Admin Sodium Chloride 1,000 mls @ 999 mls/hr 04/30/25 17:06 04/30/25 19:02 Ns IV 04/30/25 18:06 Infused .Q1H1M ONE Infusion Medical Decision Making Medical Decision Making MDM Narrative: This is a 70-year-old female, with a past medical history of a chronic antalgic gait, functional neurologic disorder, migraines, hypertension, hyperlipidemia, depression, hypothyroidism, CKD, seizures, conversion disorder, who presents emergency department on recommendations from her primary care physician. On arrival, patient hypertensive at 184/78, all other vital signs within normal limits. She is speaking in full sentences. I had patient walk several steps and patient appears to be very antalgic. Upon other review of medical records, patient has a history of this. However given recent fall, CT CTA was ordered. 6:53 PM 04/30/2025 (Sue Gamez PA-C): CT CT a was negative for any acute process. I discussed at length that patient should stay overnight as she has a very antalgic gait - which she has had in the past. She reports that her gait is not different than her gait she has had all of her life. She reports no new neurologic symptoms with nonfocal neuro exam today. She presented today due to facial pressure. She had almost 2 falls in the emergency room. I discussed with patient that it would be in her best interest to stay the night to be evaluated by Physical therapy. She initially was agreeable however case management saw patient and patient states that she was just discharged from physical therapy and was told that her current state of being is the best that she will get. She states that she does not want to stay the night, to be evaluated by Physical therapy as she does not want to go to rehab, or a [facility] facility. I discussed with patient that if she were to be discharged she is putting her life in danger as if she falls and hits her head, she is at risk for serious life-threatening consequences. She understands the risks and benefits of staying. She understands that she will be signing against medical advice. She does have the capacity to make these decisions. 7:03 PM 04/30/2025 (Sue Gamez PA-C): I spoke to the brother on the phone, patient does not want to stay overnight, she does not want to be seen by Physical therapy in the morning, and wants to be discharged home. She has a capacity to make these decisions. Brother states that this is her baseline and has had no changes, she has gone through physical therapy many times and states that this is the best she will ever get . I discussed with patient that she should stay however patient adamantly refuses. Patient will be signing against medical advice. 7:12 PM 04/30/2025 (Sue Gamez PA-C): I spoke with patient again, she is now agreeable for staying to be evaluated by Physical therapy. Patient will be made physician observation pending PT case management disposition. Differential Diagnosis Differential Diagnoses: The differential diagnosis associated with the presentation includes Orthostatic hypotension, ACS-unlikely, sinusitis, URI, Admission/Observation Consideration of admission/observation: Escalation of care including admission/observation considered Lab Data [facility] Lab Attestation statement: I reviewed the patient's lab results. see [facility] 04/30/25 13:02 04/30/25 13:02 Labs: Lab Results 04/30/25 04/30/25 04/30/25 Range/Units 13:02 13: 17:37 WBC 6.1 (4.8-10.8) X10*3/uL RBC 4.31 (4.20-5.50) X10*6/uL Hgb 12.8 (12.0-16.0) g/dl Hct 41.3 (37.0-47.0) % MCV 95.8 (80.0-98.0) fL MCH 29.7 (27.0-33.0) pg MCHC 31.0 (31.0-35.0) g/dl RDW 13.8 (11.0-16.0) % Plt Count 269 (160-400) X10*3/uL MPV 9.8 (9.4-12.3) fL Immature Gran % (Auto) 0.3 (0.0-0.4) % Neut % (Auto) 56.1 (45-73) % Lymph % (Auto) 27.1 (20-40) % [place] % (Auto) 10.6 (2-11) % Eos % (Auto) 4.6 H (0-4) % Baso % (Auto) 1.3 (0-2) % Lymph # (Auto) 1.7 (1.2-4.9) X10*3/uL [place] # (Auto) 0.7 (0.1-1.2) X10*3/uL Eos # (Auto) 0.3 (0.0-0.4) X10*3/uL Baso # (Auto) 0.1 (0.0-0.2) X10*3/uL Abs Immat Gran (auto) 0.02 (0.00-0.03) X10*3/uL Absolute Neuts (auto) 3.4 (2.0-8.3) x10*3/uL Absolute Nucleated RBC 0.000 (0.0-0.012) X10*3/uL Nucleated RBC % (auto) 0.0 (0.0-0.2) /100WBC PT 11.3 (11.2-13.5) SEC INR 0.9 (0.9-1.1) APTT 28.1 (26.7-34.1) SEC Sodium 142 (135-145) mmol/L Potassium 4.0 (3.3-5.1) mmol/L Chloride 115 H (96-108) mmol/L Carbon Dioxide 21 L (22-29) mmol/L Anion Gap 10 L (12-20) BUN 18 H (9-16) mg/dL Creatinine 0.87 (0.5-1.4) mg/dL Estim Creat Clear Calc 42.6 Estimated GFR > 60 Random Glucose 93 (60-115) mg/dL Calcium 8.9 (8.4-10.2) mg/dL Magnesium 2.1 (1.6-2.6) mg/dL Total Bilirubin 0.2 (0.0-1.0) mg/dL AST 31 (5-31) U/L ALT 21 (0-31) U/L Alkaline Phosphatase 79 (39-117) U/L Total Creatine Kinase 90 (26-140) U/L Troponin I High Sens < 2.7 (<3.5-17.0) ng/L Total Protein 6.4 L (6.5-8.0) g/dL Albumin 3.8 (3.5-5.0) g/dL Urine Color Dark Yellow Urine Appearance Clear Urine pH 5.5 (5.0-9.0) Ur Specific Lake <= 1.005 (1.005-1.025) Urine Protein Negative (Neg-Trace) mg/dL Urine Glucose (UA) Negative (Negative) mg/dL Urine Ketones Negative (Negative) mg/dL Urine Blood Negative (Negative) Urine Nitrite Negative (Negative) Ur Leukocyte Esterase Negative (Negative) Influenza Type A (PCR) NEGATIVE (Negative) Influenza Type B (PCR) NEGATIVE (Negative) RSV RNA Qual (PCR) NEGATIVE (Negative) SARS-CoV-2 RNA (RT-PCR) NEGATIVE (Negative) 04/30/25 Range/Units 18:07 WBC (4.8-10.8) X10*3/uL RBC (4.20-5.50) X10*6/uL Hgb (12.0-16.0) g/dl Hct (37.0-47.0) % MCV (80.0-98.0) fL MCH (27.0-33.0) pg MCHC (31.0-35.0) g/dl RDW (11.0-16.0) % Plt Count (160-400) X10*3/uL MPV (9.4-12.3) fL Immature Gran % (Auto) (0.0-0.4) % Neut % (Auto) (45-73) % Lymph % (Auto) (20-40) % [place] % (Auto) (2-11) % Eos % (Auto) (0-4) % Baso % (Auto) (0-2) % Lymph # (Auto) (1.2-4.9) X10*3/uL [place] # (Auto) (0.1-1.2) X10*3/uL Eos # (Auto) (0.0-0.4) X10*3/uL Baso # (Auto) (0.0-0.2) X10*3/uL Abs Immat Gran (auto) (0.00-0.03) X10*3/uL Absolute Neuts (auto) (2.0-8.3) x10*3/uL Absolute Nucleated RBC (0.0-0.012) X10*3/uL Nucleated RBC % (auto) (0.0-0.2) /100WBC PT (11.2-13.5) SEC INR (0.9-1.1) APTT (26.7-34.1) SEC Sodium (135-145) mmol/L Potassium (3.3-5.1) mmol/L Chloride (96-108) mmol/L Carbon Dioxide (22-29) mmol/L Anion Gap (12-20) BUN (9-16) mg/dL Creatinine (0.5-1.4) mg/dL Estim Creat Clear Calc Estimated GFR Random Glucose (60-115) mg/dL Calcium (8.4-10.2) mg/dL Magnesium (1.6-2.6) mg/dL Total Bilirubin (0.0-1.0) mg/dL AST (5-31) U/L ALT (0-31) U/L Alkaline Phosphatase (39-117) U/L Total Creatine Kinase (26-140) U/L Troponin I High Sens < 2.7 (<3.5-17.0) ng/L Total Protein (6.5-8.0) g/dL Albumin (3.5-5.0) g/dL Urine Color Urine Appearance Urine pH (5.0-9.0) Ur Specific Lake (1.005-1.025) Urine Protein (Neg-Trace) mg/dL Urine Glucose (UA) (Negative) mg/dL Urine Ketones (Negative) mg/dL Urine Blood (Negative) Urine Nitrite (Negative) Ur Leukocyte Esterase (Negative) Influenza Type A (PCR) (Negative) Influenza Type B (PCR) (Negative) RSV RNA Qual (PCR) (Negative) SARS-CoV-2 RNA (RT-PCR) (Negative) Independent Interpretation I performed an independent interpretation of an: EKG Interpretation: EKG normal sinus rhythm at a ventricular rate of 63 beats per minute, IN interval 180, QT QTC 420/429, no STEMI Radiology Impression Discussion of test interpretation with radiology: I have reviewed the radiologist's reading. Radiologist Impression: NECK CTA: -AORTIC ARCH: Normal in caliber. Mild atheromatous calcification. Three-vessel branching pattern. -GREAT VESSEL ORIGINS: Widely patent. No stenosis. -RIGHT COMMON CAROTID ARTERY: Normal in course and caliber to the level of the bifurcation. -CERVICAL RIGHT INTERNAL CAROTID ARTERY: Mild calcific atherosclerotic disease of the carotid bulb and proximal internal carotid artery without flow-limiting stenosis. -LEFT COMMON CAROTID ARTERY: Normal in course and caliber to the level of the bifurcation. -CERVICAL LEFT INTERNAL CAROTID ARTERY: Mild calcific atherosclerotic disease of the carotid bulb and proximal internal carotid artery without flow-limiting stenosis. -CERVICAL RIGHT VERTEBRAL ARTERY: Codominant. Normal origin. Normal in course and caliber into the skull base. -CERVICAL LEFT VERTEBRAL ARTERY: Codominant. Normal origin. Normal in course and caliber into the skull base. OTHER, SOFT TISSUES: -No lymphadenopathy or mass. No abnormal fluid collection or soft tissue swelling. -There has been a left thyroidectomy. -Imaged superior mediastinal structures normal. -Imaged lung apices clear. CTA OF THE BRAIN: -INTRACRANIAL INTERNAL CAROTID ARTERIES: Calcific atherosclerotic disease of the intracranial internal carotid arteries without occlusion or flow-limiting stenosis. -RIGHT ANTERIOR CEREBRAL ARTERY: Normal A1 segment. Normal arborization of the distal segments. -LEFT ANTERIOR CEREBRAL ARTERY: Normal A1 segment. Normal arborization of the distal segments. -ANTERIOR COMMUNICATING ARTERY: Normal. -RIGHT MIDDLE CEREBRAL ARTERY: Normal M1 segment of the MCA without focal stenosis or occlusion. Normal bifurcation. Normal arborization of the distal segments. -LEFT MIDDLE CEREBRAL ARTERY: Normal M1 segment of the MCA without focal stenosis or occlusion. Normal bifurcation. Normal arborization of the distal segments. -RIGHT VERTEBRAL ARTERY V4: Normal in course and caliber. Normal PICA branch. -LEFT VERTEBRAL ARTERY V4: Normal in course and caliber. Normal PICA branch. -BASILAR ARTERY: Normal without focal stenosis or occlusion. Normal appearance of the proximal superior cerebellar arteries. Normal basilar tip. -RIGHT POSTERIOR CEREBRAL ARTERY: Normal P1 segment. Normal opacification of the distal S[employer]IOR EDUCATION SPECIALIST segments. -LEFT POSTERIOR CEREBRAL ARTERY: The P1 segment is diminutive. Partial origin of the left SENIOR EDUCATION SPECIALIST with robust opacification of the posterior communicating artery. Normal opacification of the distal SENIOR EDUCATION SPECIALIST segments. -POSTERIOR COMMUNICATING ARTERIES: The left as above. The right is small but present. Normal opacification of the superior sagittal, straight, transverse, and sigmoid sinuses. No venous thrombosis. No space-occupying hemorrhage or definite evolving infarct. CT/CT angio head neck IMPRESSION: NONCONTRAST HEAD CT: 1. No intracranial hemorrhage or mass effect. No CT evidence of acute territorial infarct. CTA NECK: 1. No evidence of significant stenosis, occlusion, dissection, or aneurysm of the major cervical arterial vasculature. 2. Left thyroidectomy. CTA HEAD: 1. No evidence of significant stenosis, occlusion, dissection, or aneurysm of the major intracranial arterial vasculature. 2. Major cortical and dural venous sinuses are patent. Electronically signed by: Guille Orosco MD 04/30/2025 05:16 PM [facility] Dictated By: Guille Orosco MD Discharge Plan Discharge Clinical Impression: Falls Qualifiers: Encounter type: subsequent encounter Qualified Code(s): W19.XXXD - Unspecified fall, subsequent encounter Patient Disposition: Home, Self-Care Additional Instructions: You were evaluated in the emergency department after experiencing fall. You worked with case management who was able to resume [facility] through VNA services at home. please follow up with your primary care doctor. Please return to the emergency department if you experience any new/ worsening / concerning symptoms. Prescriptions: No Action (DME) [facility] See Rx Instructions .Route .MEDSUPPLY Qty: 1 0RF Rx Instructions: As directed albuterol sulfate 90 mcg/actuation HFA aerosol inhaler 2 puff PO Q6H PRN (Reason: for wheezing) Qty: 6.7 0RF folic acid 800 mcg tablet 0.8 mg PO DAILY Qty: 90 1RF fluticasone propionate 50 mcg/actuation spray,suspension 1 spray intranasal DAILY 90 Days Qty: 48 1RF Rx Instructions: administer into each nostril cholecalciferol (vitamin D3) 50 mcg (2,000 unit) capsule 50 mcg PO DAILY 90 Days Qty: 90 1RF magnesium oxide 400 mg (241.3 mg magnesium) tablet 400 mg PO BEDTIME 90 Days Qty: 90 3RF meclizine 25 mg tablet 25 mg PO DAILY PRN (Reason: dizziness) Qty: 20 0RF clonazepam 0.5 mg tablet 0.5 mg PO BID 30 Days Qty: 60 3RF fluticasone propion-salmeterol [Wixela Inhub] 250-50 mcg/dose blister with device 1 ea PO BID Qty: 180 0RF levothyroxine 25 mcg tablet 25 mcg PO DAILY Qty: 90 0RF riboflavin (vitamin B2) 400 mg tablet 400 mg PO DAILY 90 Days Qty: 90 3RF sumatriptan succinate 100 mg tablet 100 mg PO Q2H PRN (Reason: Migraine Headache) 30 Days Qty: 12 3RF Rx Instructions: Max 2 tabs per day or 4 tabs per week. montelukast 10 mg tablet 10 mg PO DAILY Qty: 90 1RF topiramate 100 mg tablet 100 mg PO BID 90 Days Qty: 180 1RF ezetimibe 10 mg tablet 10 mg PO DAILY Qty: 90 1RF memantine 28 mg capsule,sprinkle,ER 24hr 28 mg PO DAILY 30 Days Qty: 30 6RF atorvastatin 80 mg tablet 80 mg PO BEDTIME docusate sodium 100 mg Capsule 100 mg PO BEDTIME melatonin 10 mg Tablet 10 mg PO BEDTIME sertraline 25 mg tablet 100 mg PO DAILY aspirin [Adult Low Dose Aspirin] 81 mg tablet,delayed release (DR/EC) 81 mg PO DAILY albuterol sulfate 2.5 mg /3 mL (0.083 %) solution for nebulization 2.5 mg inhalation QID PRN (Reason: shortness of breath or wheezing) 90 Days Qty: 180 0RF Rx Instructions: for neb fludrocortisone 0.1 mg tablet 0.1 mg PO DAILY 90 Days Qty: 90 1RF Referrals: [facility] [Outside] Interventions: ED Discharge Assessment Last Done: 05/01/25 10:15 Discharge Date/Time: 05/01/25 10:15 Print Language: Bruneian
--- NOTE | 2025-04-30 11:57 | ECG_ITS ---
Test Reason : FALL Blood Pressure : */* mmHG Vent. Rate : 63 BPM Atrial Rate : 63 BPM P-R Int : 180 ms QRS Dur : 78 ms QT Int : 420 ms P-R-T Axes : 68 25 41 degrees QTcB Int : 429 ms Normal sinus rhythm Possible Left atrial enlargement Borderline ECG When compared with ECG of 27-Jan-2025 15:30, Premature ventricular complexes are no longer Present Referred By: Garcia Amador Electronically Signed By: FREDA GARY
[2025-04-30 13:08] LABS: MANUAL DIFF FLAG NO
[2025-04-30 13:15] LABS: Hematocrit 41.3 % (37.0-47.0); Hemoglobin 12.8 g/dl (12.0-16.0); Imm Gran Abs Auto 0.02 X10*3/uL (0.00-0.03); Imm Gran Pct Auto 0.3 % (0.0-0.4); Lymphocytes Absolute Auto 1.7 X10*3/uL (1.2-4.9); Mean Corpuscular HGB Conc 31.0 g/dl (31.0-35.0); Mean Corpuscular Hemoglobin 29.7 pg (27.0-33.0); Mean Corpuscular Volume 95.8 fL (80.0-98.0); NRBC Abs Auto 0.000 X10*3/uL (0.0-0.012); NRBC Pct Auto 0.0 /100WBC (0.0-0.2); Platelet Count 269 X10*3/uL (160-400); Red Blood Count 4.31 X10*6/uL (4.20-5.50); White Blood Count 6.1 X10*3/uL (4.8-10.8)
[2025-04-30 13:22] LABS: INTERNATIONAL NORM RATIO 0.9 (0.9-1.1); Prothrombin Time 11.3 SEC (11.2-13.5)
[2025-04-30 13:24] LABS: Alanine Aminotransferase 21 U/L (0-31); Albumin Level 3.8 g/dL (3.5-5.0); Alkaline Phosphatase 79 U/L (39-117); Anion Gap 10 (12-20); Aspartate Amino Transferase 31 U/L (5-31); Blood Urea Nitrogen 18 mg/dL (9-16); Calcium 8.9 mg/dL (8.4-10.2); Carbon Dioxide 21 mmol/L (22-29); Chloride 115 mmol/L (96-108); Creatinine Clr Calc Pharmacy 42.6; Estimated Glomerular Filt Rate > 60; Magnesium 2.1 mg/dL (1.6-2.6); Potassium 4.0 mmol/L (3.3-5.1); Sodium 142 mmol/L (135-145); Total Protein 6.4 g/dL (6.5-8.0)
[2025-04-30 13:25] LABS: Partial Thromboplastin Time 28.1 SEC (26.7-34.1)
[2025-04-30 13:32] LABS: Troponin-I High Sensitivity < 2.7 ng/L (<3.5-17.0)
[2025-04-30 13:34] LABS: Appearance Urine Clear; Glucose Urine UA Negative (Negative); PH 5.5 (5.0-9.0); Specific Gravity - Urine <= 1.005 (1.005-1.025)
[2025-04-30 14:26] VITALS: BP 175/80; PULSE 94; RESP 16; TEMP 36.4; O2SAT 96
--- NOTE | 2025-04-30 14:41 | PC.NURSE ---
When REBA Rogers at bedside attempting to see how patient ambulates. Upon standing and first step, pt extremely unsteady on feet needing x2 people to hold her. Pt insisting on letting her walk alone . This RN stayed next to her with REBA Rogers and MILES Burns with wheelchair. Pt verey unsteamichelle.
[2025-04-30 16:59] VITALS: BP 184/85; PULSE 68
[2025-04-30 17:00] VITALS: BP 174/83; PULSE 67
[2025-04-30 17:01] VITALS: BP 179/92; PULSE 75
[2025-04-30 18:19] LABS: Resp Syncy Virus RNA Qual PCR NEGATIVE (Negative); SARS COV2 PCR INHOUSE NEGATIVE (Negative)
[2025-04-30 18:32] LABS: Troponin-I High Sensitivity < 2.7 ng/L (<3.5-17.0)
--- NOTE | 2025-04-30 18:54 | MHC.CM.ED ---
Addendum entered by Karla Sheth 04/30/25 19:12: Provider spoke with patient again and explained that she would need to sign AMA, as she is concerned about patient's gait. Pt is now willing to remain overnight for PT evaluation, but will not go to [facility]. Pt may be willing to have home PT. Pt is active with [facility]. [facility] notified via [facility] Port. Original Note: CM met with patient to discuss discharge planning. Patient is not agreeable to PT evaluation and will not go to [facility]. Pt states she just completed home PT with [facility] last month. States she was told she was at her baseline. Pt states she always has had balance problems and has functional neurological disorder. Pt is not interested in additional home PT. Pt states she will go to [place] to visit her son from 05/23-06/27. She uses a wheelchair in the airport. Pt states she would rather go home tonight. States her brother will pick her up. Provider aware of above conversation. Will speak with patient. Pt lives with her brother. She has a walker-rollator and a cane. She admits to not using them in the home. CM encouraged patient to use her walker for stability. Pt states she uses the paredes, the washer, the furniture , she doesn't need her walker in her home. Pt is active with [facility] and has the visiting nurse 3 times/wk. Provider spoke with patient and her brother via telephone. He states she is at her baseline and will not get any better with her gait or balance. Pt will sign AMA and discharge to home.
[2025-04-30 20:08] VITALS: BP 157/72; PULSE 71; RESP 14; TEMP 36.6; O2SAT 98
--- NOTE | 2025-05-01 01:38 | PC.NURSE ---
Took over care at 23:00, pt sleeping no sign of distress.
[2025-05-01 01:44] VITALS: BP 150/76; PULSE 68; RESP 16; TEMP 36.1; O2SAT 96
--- NOTE | 2025-05-01 01:45 | PC.NURSE ---
pt repositioned, blanket given and vitals taken.
--- NOTE | 2025-05-01 04:29 | PC.NURSE ---
pt sleeping at this time, no sign of distress.
[2025-05-01 06:23] VITALS: BP 176/78; PULSE 76; RESP 18; TEMP 36.8; O2SAT 97
--- NOTE | 2025-05-01 06:35 | PC.NURSE ---
pt assisted to bathroom with walker.
--- NOTE | 2025-05-01 09:06 | MHC.CM.ED ---
Patient remains in ER. Physical therapy eval completed. Waiting for assessment to be written up. Patient requesting to be d/c'd home. Sister will transport patient home. Patient already active with [facility]. [facility] made aware. Rita AQUINO and Nigel BRITTON aware. Continue to monitor for d/c needs.
[2025-05-01 10:15] VITALS: BP 176/78; PULSE 76; RESP 18; TEMP 36.8; O2SAT 97
== END 2025-05-01 10:15 | disposition home or self-care (01) ==
PROVIDERS: Physician Assistant; Physician Assistant Medical; Emergency Provider Emergency Medicine; PCP Nurse Practitioner Family
DX: R51.9 Headache, unspecified (principal); R26.0 Ataxic gait; E78.5 Hyperlipidemia, unspecified; I12.9 Hypertensive chronic kidney disease with stage 1 through stage 4 chronic kidney disease, or unspecified chronic kidney disease; N18.9 Chronic kidney disease, unspecified; Z91.81 History of falling; Z03.818 Encounter for observation for suspected exposure to other biological agents ruled out
CPT/HCPCS: 36415; 70496; 70498; 80053; 81003; 82550; 83735; 84484; 85025; 85610; 85730; 87637; 93005; 97161; 99212; 99284; 99285

== ENCOUNTER → 2025-04-30 11:57 | Outpatient (BNV) | payer OTHER, SELFPAY | PROVIDERS: Emergency Provider Emergency Medicine; PCP Nurse Practitioner Family; Visit Provider Internal Medicine | DX: Z04.3 Encounter for examination and observation following other accident (principal) | CPT/HCPCS: 93010 ==

== ENCOUNTER → 2025-04-30 14:41 | Outpatient (BNV) | payer OTHER, SELFPAY | PROVIDERS: Emergency Provider Emergency Medicine; PCP Nurse Practitioner Family; Visit Provider Radiology Diagnostic Radiology | DX: R26.0 Ataxic gait (principal); R29.818 Other symptoms and signs involving the nervous system; Z04.3 Encounter for examination and observation following other accident | CPT/HCPCS: 70496; 70498 ==

== ENCOUNTER 2025-05-20 13:58 | Outpatient (AMB) | payer OTHER, SELFPAY ==
--- NOTE | 2025-05-20 14:01 | A.OFFPC_ITS ---
Vital Signs 05/20/25 14:02 05/20/25 15:26 Height 5 ft Weight 117 lb BMI 22.8 BP 160/84 H 140/74 H Blood Pressure Location Lt brachial Position Sitting Respiration 16 Pulse 50 Pulse Source Pulse Oximeter Pulse Oximetry (%) 99 Oxygen Delivery Method Room Air Intake Visit Reasons: 4m follow up Bench Scientist Required: No Accompanied by: Self / Same As Patient Allergies Penicillins (PENICILLINS) Allergy (Intermediate, Verified 05/20/25 14:06) HIVES carbamazepine (From Tegretol) Allergy (Mild, Verified 05/20/25 14:06) HIVES diflunisal (From Dolobid) Allergy (Mild, Verified 05/20/25 14:06) HIVES erythromycin base (From Edwin-Tab) Allergy (Mild, Verified 05/20/25 14:06) HIVES phenytoin (From Dilantin) Allergy (Mild, Verified 05/20/25 14:06) RASH,HIVES piroxicam (From Feldene) Allergy (Mild, Verified 05/20/25 14:06) HIVES sulfamethoxazole (From Bactrim) Allergy (Mild, Verified 05/20/25 14:06) HIVES trimethoprim (From Bactrim) Allergy (Mild, Verified 05/20/25 14:06) HIVES valproic acid (From Depakene) Allergy (Mild, Verified 05/20/25 14:06) HIVES Depakene Allergy (Unknown, Verified 05/20/25 14:06) Rash hydrochlorothiazide (HYDROCHLOROTHIAZIDE) Allergy (Unknown, Verified 05/20/25 14:06) rash lisinopril (LISINOPRIL) Allergy (Unknown, Verified 05/20/25 14:06) rash galcanezumab-gnlm (From Emgality Pen) Allergy (Verified 05/20/25 14:06) headaches codeine (Codeine) Adverse Reaction (Intermediate, Verified 05/20/25 14:06) NAUSEA & VOMITING rash doxycycline Adverse Reaction (Verified 05/20/25 14:06) Stomach Upset ENVIRONMENTAL Allergy (Intermediate, Uncoded 04/30/25 10:56) ASTHMA,LOSES VOICE TAPE,PLASTIC Allergy (Intermediate, Uncoded 04/30/25 10:56) RASH surgical tape Allergy (Unknown, Uncoded 04/30/25 10:56) unknown Tobacco use date assessed: 05/20/25 Fall risk assessment: 1 Fall in past year Last assessed Fall Risk: 05/20/25 Dental Screening Dental Screen Date: 01/13/25 HPI 4m follow up HPI Details Chief Complaint The patient presents for a follow-up visit for hypertension. History of Present Illness The patient is a 70 year old female presenting with a follow-up for hypertension. Her home blood pressure readings, taken manually by her nurse, are regularly in the 120s/70s. She has a history of conversion disorder and uses a walker, but is reported to be doing well currently. Her most recent labs were not bad. Social History - Functional Status: The patient uses a walker. Health Maintenance Review of Systems - Cardiovascular: Denies chest pain. - Respiratory: Denies shortness of breat h. - Neurological: Denies dizziness. - Ophthalmologic: Denies blurred vision. Physical Exam General: Cooperative, healthy appearing, comfortable, no acute distress and well developed, using walker Orientation: Patient oriented x3 Limitations: Uses a walker Head: Normal to inspection Ears: Hearing grossly normal bilaterally Nose: Normal external nose present Face and sinus: Normal facial exam Eyes: Appearance normal, both eyes and all related structures Neck: Normal visual inspection and Yes full ROM Respiratory: Normal respiratory effort and able to speak in complete sentences. Clear to auscultation bilaterally Cardiovascular: Regular rate and rhythm. Normal S1 and S2 GI: Normal to inspection. Soft to palpation and nontender Skin: No rashes or lesions noted Neuro: Patient oriented x3 Extremities: Normal to inspection Results - Labs: Most recent labs were not bad. Plan 1. Hypertension The patient is doing well with home blood pressure readings in the 120s/70s. She will have repeat labs drawn before her next follow-up appointment in January. 2. Conversion Disorder The patient is reported to be doing quite well with her conversion disorder at this time. Discussion Notes I will have her get more labs before I see her in January. She will call me with any further questions or concerns. Patient Instructions - Get new lab work done before your next appointment in January. - Call the office if you have any furthe r questions or concerns. [facility] Medical History Lightheadedness Osteopenia Conversion disorder with attacks or seizures, acute episode, with psychological stressor Falls Anesthesia complication Liver lesion Ingrown toenail Elevated liver enzymes Concussion with loss of consciousness SOB (shortness of breath) Pain of both earlobes Dizziness New onset headache Otitis externa of both ears Acute effusion of right ear Dermatitis Myalgia Headache REM sleep behavior disorder Convulsion disorder COVID-19 Pre-syncope Dyspnea Chest pain Pneumonia Osteoporosis Screening for osteoporosis CKD (chronic kidney disease) Dyslipidemia Hypothyroid Hyperlipemia Ataxic gait Seizures Asthma Depression Conversion disorder HTN (hypertension) Muscle weakness Hypothyroid Surgical History H/O colonoscopy History of right knee surgery History of lobectomy of thyroid History of arthroscopy of right knee History of ankle surgery History of arthroscopy of left knee History of hysterectomy Family History Father CVD (cardiovascular disease) Stomach ulcer Cardiac arrest H/O heart bypass surgery Mother History of heart attack CHF (congestive heart failure) Lung cancer Diabetes mellitus High cholesterol HTN (hypertension) Hypothyroidism Sister Lung cancer Substance use disorder Brother Colitis Sister No problems noted. Sister Obstetric pulmonary blood clot embolism, antepartum Paternal Aunt Mental health disorder Substance use disorder Maternal Grandmother Mental health disorder Family/Other Substance use disorder Social History Household Members: Family Household Members Other:: brother, 2 cats Housing: House Are you a primary assisted living care manager to a significant other at home: No Do you presently have visiting nurse or other home services: No Alcohol intake: never Patient Tobacco Use Status: Never used Tobacco e-Cigarette/Vaping Use: Never Used Second Hand Smoke Exposure: No service: No Current occupational status: disabled Cognitive needs: No Hearing needs: No Vision needs: No Questionnaire Thrive Questionnaire Date Thrive assessed: 12/18/24 I am a: Patient What is your living situation today?: I choose not to answer this question Within the past 12 months, did the food you bought not last and you didn't have the money to get more?: I choose not to answer this question Within the past 12 months, did you worry whether your food would run out before you got money to buy more?: I choose not to answer this question Do you have trouble paying for medicines?: I choose not to answer this question Do you have trouble getting transportation to medical appointments?: I choose not to answer this question Do you have trouble paying your heating and electricity bill?: I choose not to answer this question Do you have trouble taking care of your child, family member or friend?: I choose not to answer this question Do you have trouble with day-to-day activities such as bathing, preparing meals, shopping, managing finances, etc.?: I choose not to answer this question Are you currently unemployed and looking for a job?: I choose not to answer this question Are you interested in more education?: I choose not to answer this question Please select the resources that you would like help with: None Currently or been in a relationship where the following occur: I choose not to answer THRIVE Score: 0 KATHRINE-7 AMB Questionnaire KATHRINE-7 Date KATHRINE - 7 assessed: 12/18/24 Source: Developed by Drs. Mirza Corona, Jelena Walton, Arnoldo Gonzalez and colleagues, with an educational liu from [email or web address]. Physical exam (Primary Care) Vital Signs: Last Vital Signs Pulse 50 05/20/25 14:02 Resp 16 05/20/25 14:02 BP 160/84 H 05/20/25 14:02 Pulse Ox 99 05/20/25 14:02 Oxygen Delivery Method Room Air 05/20/25 14:02 BMI result Body Mass Index 22.8 Tobacco/Smoking Status: Tobacco use Status Tobacco use date assessed 05/20/25 05/20/25 14:13 Patient Tobacco Use Status Never used Tobacco 05/20/25 14:03 e-Cigarette/Vaping Use Never Used 05/20/25 14:03 Thrive Assessment: Date of Thrive Assessment Date Thrive assessed 12/18/24 05/20/25 14:03 Currently or been in a relationship where the following occur: I choose not to answer Coding Level of Care Code Est Pt Level 3 (64981) Diagnoses HTN (hypertension) I10 Conversion disorder with attacks or seizures, acute episode, with psychological stressor F44.5 Assessment & Plan Assessment & Plan (1) HTN (hypertension): Code(s): I10 - Essential (primary) hypertension Category: Medical (2) Conversion disorder with attacks or seizures, acute episode, with psychological stressor: Code(s): F44.5 - Conversion disorder with seizures or convulsions Category: Medical Plan .
[2025-05-20 14:02] VITALS: BP 160/84; PULSE 50; RESP 16; O2SAT 99; BMI 22.8
[2025-05-20 15:26] VITALS: BP 140/74
== END 2025-05-20 15:48 | disposition home or self-care (01) ==
LOC: HO.HMCC 13:59
PROVIDERS: PCP Nurse Practitioner Family; Visit Provider Nurse Practitioner Family
DX: I10 Essential (primary) hypertension (principal); F44.5 Conversion disorder with seizures or convulsions

== ENCOUNTER → 2025-05-20 13:58 | Outpatient (BNVA) | payer OTHER, SELFPAY | PROVIDERS: PCP Nurse Practitioner Family; Visit Provider Nurse Practitioner Family | DX: I10 Essential (primary) hypertension (principal); F44.5 Conversion disorder with seizures or convulsions | CPT/HCPCS: 99212 ==

== ENCOUNTER 2025-05-21 11:05 | Outpatient (AMB) | payer OTHER, SELFPAY ==
[2025-05-21 11:14] VITALS: BP 146/80; PULSE 77; O2SAT 98; BMI 22.7
--- NOTE | 2025-05-21 11:14 | A.OFFVIS_ITS ---
Vital Signs 05/21/25 11:14 Height 5 ft Weight 116 lb BMI 22.7 BP 146/80 H Blood Pressure Location Lt brachial Position Sitting Pulse 77 Pulse Source Pulse Oximeter Pulse Oximetry (%) 98 Oxygen Delivery Method Room Air Intake Visit Reasons: Shortness of breath Allergies Penicillins (PENICILLINS) Allergy (Intermediate, Verified 05/21/25 11:21) HIVES carbamazepine (From Tegretol) Allergy (Mild, Verified 05/21/25 11:21) HIVES diflunisal (From Dolobid) Allergy (Mild, Verified 05/21/25 11:21) HIVES erythromycin base (From Edwin-Tab) Allergy (Mild, Verified 05/21/25 11:21) HIVES phenytoin (From Dilantin) Allergy (Mild, Verified 05/21/25 11:21) RASH,HIVES piroxicam (From Feldene) Allergy (Mild, Verified 05/21/25 11:21) HIVES sulfamethoxazole (From Bactrim) Allergy (Mild, Verified 05/21/25 11:21) HIVES trimethoprim (From Bactrim) Allergy (Mild, Verified 05/21/25 11:21) HIVES valproic acid (From Depakene) Allergy (Mild, Verified 05/21/25 11:21) HIVES Depakene Allergy (Unknown, Verified 05/21/25 11:21) Rash hydrochlorothiazide (HYDROCHLOROTHIAZIDE) Allergy (Unknown, Verified 05/21/25 11:21) rash lisinopril (LISINOPRIL) Allergy (Unknown, Verified 05/21/25 11:21) rash galcanezumab-gnlm (From Emgality Pen) Allergy (Verified 05/21/25 11:21) headaches codeine (Codeine) Adverse Reaction (Intermediate, Verified 05/21/25 11:21) NAUSEA & VOMITING rash doxycycline Adverse Reaction (Verified 05/21/25 11:21) Stomach Upset ENVIRONMENTAL Allergy (Intermediate, Uncoded 04/30/25 10:56) ASTHMA,LOSES VOICE TAPE,PLASTIC Allergy (Intermediate, Uncoded 04/30/25 10:56) RASH surgical tape Allergy (Unknown, Uncoded 04/30/25 10:56) unknown HPI HPI Shortness of breath: Details: 70-year-old lady, nonsmoker, followed for asthma and environmental allergies. Patient continues on generic Wixela and albuterol MDI / nebs with reasonable control of her symptoms. She denies recent exacerbations. Her allergy symptoms continue to be controlled on Singulair and as needed Flonase. [facility] Medical History Lightheadedness Osteopenia Conversion disorder with attacks or seizures, acute episode, with psychological stressor Falls Anesthesia complication Liver lesion Ingrown toenail Elevated liver enzymes Concussion with loss of consciousness SOB (shortness of breath) Pain of both earlobes Dizziness New onset headache Otitis externa of both ears Acute effusion of right ear Dermatitis Myalgia Headache REM sleep behavior disorder Convulsion disorder COVID-19 Pre-syncope Dyspnea Chest pain Pneumonia Osteoporosis Screening for osteoporosis CKD (chronic kidney disease) Dyslipidemia Hypothyroid Hyperlipemia Ataxic gait Seizures Asthma Depression Conversion disorder HTN (hypertension) Muscle weakness Hypothyroid Surgical History H/O colonoscopy History of right knee surgery History of lobectomy of thyroid History of arthroscopy of right knee History of ankle surgery History of arthroscopy of left knee History of hysterectomy Family History Father CVD (cardiovascular disease) Stomach ulcer Cardiac arrest H/O heart bypass surgery Mother History of heart attack CHF (congestive heart failure) Lung cancer Diabetes mellitus High cholesterol HTN (hypertension) Hypothyroidism Sister Lung cancer Substance use disorder Brother Colitis Sister No problems noted. Sister Obstetric pulmonary blood clot embolism, antepartum Paternal Aunt Mental health disorder Substance use disorder Maternal Grandmother Mental health disorder Family/Other Substance use disorder Social History Household Members: Family Household Members Other:: brother, 2 cats Housing: House Are you a primary child care specialist to a significant other at home: No Do you presently have visiting nurse or other home services: No Alcohol intake: never Patient Tobacco Use Status: Never used Tobacco e-Cigarette/Vaping Use: Never Used Second Hand Smoke Exposure: No service: No Current occupational status: disabled Cognitive needs: No Hearing needs: No Vision needs: No Review of Systems Const Denies daytime sleepiness, Denies excessive sweating, Denies fatigue, Denies fever(s), Denies lethargy, Denies malaise, Denies night sweats, Denies snoring and Denies weight loss Eyes Denies blurry vision and Denies itchy eyes ENT Denies nasal congestion, Denies post nasal drip, Denies sinus pain, Denies sinus pressure and Denies other ( Thrush) Card Denies chest pain, Denies pedal edema, Denies dyspnea, Denies orthopnea and Denies paroxysmal nocturnal dyspnea Resp Denies cough, Denies hemoptysis, Denies excessive phlegm production, Denies dyspnea, Denies snoring and Denies wheezing GI Denies abdominal pain and Denies heartburn Musc Denies myalgias, Denies arthralgias and Denies joint swelling Skin/Breast Denies rash Neuro Denies memory loss and Denies seizure-like activity Psych Denies abnormal sleep pattern, Denies anxiety and Denies memory loss Endo Denies excessive sweating, Denies fatigue and Denies heat intolerance Sherman/Lymph Denies easy bruising Aller/Immun Denies itchy eyes, Denies seasonal rhinorrhea and Denies wheezing Physical Exam Vital Signs: Last Vital Signs Pulse 77 05/21/25 11:14 BP 146/80 H 05/21/25 11:14 Pulse Ox 98 05/21/25 11:14 Oxygen Delivery Method Room Air 05/21/25 11:14 BMI result Body Mass Index 22.7 Const General: no acute distress and alert Nutritional Appearance: not obese Orientation/consciousness: Other orientation findings ( oriented) HEENT Head: Yes atraumatic Eyes General: appearance normal, both eyes and all related structures Sclerae: sclerae normal EOM: EOMs intact bilaterally Neck Neck: Yes supple Lymphatic: no lymphadenopathy noted Resp Effort & Inspection: normal respiratory effort and no use of accessory muscles Auscultation: clear to auscultation bilaterally Cardio Rate: regular rate Rhythm: regular rhythm Heart sounds: no gallops, no murmurs and no rubs Skin General skin exam: other ( warm) Extrem General: No clubbing, No cyanosis and No edema Assessment & Plan Assessment & Plan (1) Asthma: Code(s): J45.909 - Unspecified asthma, uncomplicated Category: Medical Plan: Well controlled on current regimen of Wixela, albuterol MDI, and nebs. Continue current regimen. (2) Environmental allergies: Code(s): Z91.09 - Other allergy status, other than to drugs and biological substances Category: Medical Plan: Well controlled on Zyrtec, Singulair, and Flonase. Continue current regimen. Medications: Refilled albuterol sulfate for neb 2.5 mg (3 mL) inhalation QID PRN 180 mL 4RF shortness of breath or wheezing 90 days Coding Level of Care Code Est Pt Level 4 (14745) Diagnoses Asthma J45.909 Environmental allergies Z91.09
== END 2025-05-21 11:40 | disposition home or self-care (01) ==
LOC: HO.HPS 11:05
PROVIDERS: PCP Nurse Practitioner Family; Visit Provider Internal Medicine Pulmonary Disease
DX: J45.909 Unspecified asthma, uncomplicated (principal); Z91.09 Other allergy status, other than to drugs and biological substances
CPT/HCPCS: 99214

== ENCOUNTER → 2025-05-21 11:05 | Outpatient (BNVA) | payer OTHER, SELFPAY | PROVIDERS: PCP Nurse Practitioner Family; Visit Provider Internal Medicine Pulmonary Disease | DX: J45.909 Unspecified asthma, uncomplicated (principal); Z91.09 Other allergy status, other than to drugs and biological substances; Z79.899 Other long term (current) drug therapy | CPT/HCPCS: 99212 ==